=== PATIENT | female | born 1960 | race Two or more races ===

== ENCOUNTER → 2020-08-19 09:56 | Outpatient (BNVA) | payer OTHER, SELFPAY | PROVIDERS: PCP Physician Assistant Medical; Visit Provider Urology ==

== ENCOUNTER 2021-08-17 15:50 | Outpatient (REF) | payer OTHER, SELFPAY ==
--- NOTE | ~2021-08-17 | US_ITS ---
EXAMINATION: US RETROPERITONEAL LIMITED (RENAL ONLY) CLINICAL INFORMATION: Calculus of kidney. COMPARISON: Renal ultrasound 07/16/2020 and 05/24/2019. TECHNIQUE: Real-time imaging of the kidneys. FINDINGS: RIGHT KIDNEY: 9.3 x 4.2 x 5.8 cm (SAG x AP x TRV). The kidney is normal in size, contour, and echogenicity. Renal cortical thickness is normal. No calculi or focal parenchymal lesions. There is mild pelvic fullness. There are some echogenic foci seen likely related to vessel interface. LEFT KIDNEY: 10.9 x 5.2 x 6.8 cm (SAG x AP x TRV). The kidney is normal in size, contour, and echogenicity. Renal cortical thickness is normal. There is multiple collecting system fullness without geo hydronephrosis. Within the midpole, there is a 9 x 3 x 5 mm nonobstructing calculus. Within the midpole, there is a 9 x 10 x 12 mm cyst with calcification about its rim. This is similar to previous findings. US/US renal BI IMPRESSION: Stable appearance of the kidneys with mild upper collecting system fullness and not definitely hydronephrosis. Left renal mildly complex midpole cyst with calcification. Nonobstructing left renal 9 mm calculus..
== END 2021-08-17 15:51 | disposition home or self-care (01) ==
LOC: HO.XRAY 15:50
PROVIDERS: PCP Physician Assistant Medical; Visit Provider Urology
DX: N20.0 Calculus of kidney (principal); N28.1 Cyst of kidney, acquired
CPT/HCPCS: 76775

== ENCOUNTER → 2021-08-20 08:37 | Outpatient (BNVA) | payer OTHER, SELFPAY | PROVIDERS: PCP Physician Assistant Medical; Visit Provider Urology ==

== ENCOUNTER → 2021-11-04 11:14 | Outpatient (BNVA) | payer OTHER, SELFPAY | PROVIDERS: PCP Physician Assistant Medical; Visit Provider Urology | DX: Z13.89 Encounter for screening for other disorder (principal) ==

== ENCOUNTER 2022-02-22 15:24 | Outpatient (REF) | payer OTHER, SELFPAY ==
--- NOTE | ~2022-02-22 | US_ITS ---
EXAMINATION: US RETROPERITONEAL LIMITED (RENAL ONLY) CLINICAL INFORMATION: Calculus of kidney. COMPARISON: Bilateral renal ultrasound dated 08/17/2021. Renals only ultrasound dated 03/19/2017. TECHNIQUE: Real-time imaging of the kidneys. FINDINGS: RIGHT KIDNEY: 9.2 x 4.9 x 5.0 cm (SAG x AP x TRV). The kidney is normal in size, contour, and echogenicity. Renal cortical thickness is normal. No calculi or focal parenchymal lesions. No hydronephrosis. There is mild pelvic fullness. LEFT KIDNEY: 10.1 x 5.3 x 5.1 cm (SAG x AP x TRV). The kidney is normal in size, contour, and echogenicity. Renal cortical thickness is normal. No focal parenchymal lesions or hydronephrosis. There is an echogenic stone in the lower pole measuring 5 x 4 mm. There is an echogenic calcification in the midpole cortex. No caliectasis is seen. US/US renal BI IMPRESSION: Mild right renal pelvic fullness. No echogenic right renal calculi are seen. Nonobstructive echogenic stone in the lower pole and an echogenic calcification in the midpole of the left kidney. No caliectasis or hydronephrosis.
== END 2022-02-22 15:25 | disposition home or self-care (01) ==
LOC: HO.US 15:24
PROVIDERS: Visit Provider Urology
DX: N20.0 Calculus of kidney (principal)
CPT/HCPCS: 76775

== ENCOUNTER 2022-03-02 13:59 | Outpatient (AMB) | payer OTHER, SELFPAY ==
--- NOTE | 2022-03-02 11:41 | MHC.OFFVIS ---
Intake Intake Visit Reasons: 3 Month Ultrasound(SET) Intake Note: Patient is present for ultrasound follow up Digital X Ray Service Engineer Required: No Accompanied by: Self / Same As Patient Allergies aspirin [ASPIRIN] Allergy (Unknown, Verified 09/13/23 11:10) STOMACH ISSUES ibuprofen [From MOTRIN] Allergy (Unknown, Verified 09/13/23 11:10) STOMACH ISSUES prochlorperazine [From COMPAZINE] Allergy (Unknown, Verified 09/13/23 11:10) NERVOUS Sulfa (Sulfonamide Antibiotics) Allergy (Unknown, Verified 09/13/23 11:10) unknown Compazine Allergy (Unknown, Uncoded 09/13/23 11:10) unknown Motrin Allergy (Unknown, Uncoded 09/13/23 11:10) unknown HPI HPI Comments History of Present Illness Details Bhumi Narayan is a very pleasant female. They are a patient of [facility]. She is seen for the following conditions - nephrolithiasis - recurring UTI - renal cyst Nephrolithiasis/Urolithiasis: They are here for further evaluation of nephrolithiasis. They present for evaluation of back pain bilateral lower flank pain none abdominal pain none Urolithiasis was diagnosed a number of years ago 2004. The patient previously had kidney stones whose composition w unknown. Laboratory investigations include Base line serum evaluation, January 2016 - Normocalcemia (9.0), Normal PTH, Normal uric acid. 24 Hour urine evaluation January 2016 - , Low Urine volume < 2.0 liters, Low calcium < 200, Low Oxalate < 30 - pH 6.30 Apr 2016 - , Low Urine volume < 2.0 liters - but otherwise ok. Prior treatment(s) include left, ureteroscopy - a number of years ago. Prior imaging includes 11/14 , a renal ultrasound, showing no evidence of stones 12/15 , a renal ultrasound, showing no evidence of stones 05/17 , a renal ultrasound ? 4mm Right 05/18 , a renal ultrasound - multiple bilateral cysts, no evidence of stone. - 07/19 renal ultrasound, bilateral multiple cysts up to 1.4 cm. Question of 5 mm stone on the left - 08/21 renal ultrasound 12 mm left cyst, 8 mm left stone - 01/19 renal ultrasound left 5 mm Current therapeutic plan will be General advice to maintain good fluid intake for urine greater than 1.5 L per day, reduce salt and reduce protein and acid loads was provided [facility] Medical History (Updated 09/13/23 @ 18:51 by Elliott Lozano MD) Abnormal chest x-ray Chronic allergic rhinitis Allergies Asthma Sleep apnea Neuropathy Headache, migraine HTN (hypertension) Acute cystitis without hematuria Mixed incontinence Flank pain Surgical History History of surgery Social History Patient Tobacco Use Status: Former Tobacco user Tobacco use type: Cigarette Years Smoked: 40 Years Review of Systems Const Denies chills and Denies fever(s) Card Reports no additional complaints and Denies syncope Resp Denies cough GI Denies abdominal pain and Denies heartburn Reports as per HPI and Denies change in libido Neuro Denies syncope Psych Denies change in libido Endo Denies change in libido Physical Exam Const General: cooperative, healthy appearing, comfortable and no acute distress Orientation/consciousness: patient oriented x3 HEENT Face and sinus: Yes normal facial exam Mouth: moist mucous membranes Neck Neck: Yes normal visual inspection, Yes full ROM and Yes trachea midline Chest Chest palpation & inspection: normal inspection of the chest Resp Effort & Inspection: normal respiratory effort, able to speak in complete sentences and no respiratory distress GI Inspection: Yes normal to inspection Back/Spine/Pelvis Cervical Spine: normal cervical lordosis Thoracic/Lumbar Spine: thoracic and lumbar spine normal to inspection Skin General skin exam: no rashes or lesions noted Neuro General: patient oriented x3, gait normal, tone normal and moves all extremities Extrem General: Yes normal to inspection and Yes capillary refill normal Assessment & Plan Assessment & Plan (1) Nephrolithiasis: Code(s): N20.0 - Calculus of kidney Plan Continue vitamin B6 Imaging follow-up 12 month Orders: Orders US renal BI 1 Year N20.0 - Calculus of kidney Medications: Refilled pyridoxine (vitamin B6) 100 mg PO DAILY 90 tabs 3RF 90 days N20.0 - Calculus of kidney Patient Instructions: Imaging studies, laboratory and physical exam results were discussed and reviewed in detail. No major barriers to patient understanding were identified. An opportunity to ask questions regarding the treatment plan was provided. All questions were answered. The patient expressed understanding and agreement with the above treatment plan. The patient is aware they should contact our office by phone for worsening of their current condition or the appearance of new urologic symptoms. Compliance is encouraged with any medications and followup testing that is ordered. It is a privilege to participate in the urologic care of your patient. If you have any questions or concerns regarding treatment for the above conditions, or other urologic issues, please do not hesitate to contact me. The office telephone contact is [phone]. This note is constructed using voice recognition software. While every effort has been made to ensure accuracy operations research engineer errors may have been included. Yours sincerely, Dr Gomez Houston MD, [facility] - Urology Providers of Expert, Compassionate Care for the Genitourinary System Telehealth Telehealth Location of provider rendering services: practice address Location of patient: address on file Patient Identification confirmed using: Name, : Yes Telehealth method: voice only Patient verbally consented to treatment: Yes Patient verbally consented to billing insurance company: Yes Patient informed of any privacy concerns related to visit: Yes Coding Level of Care Code Est Pt Level 4 (19609) Diagnoses Nephrolithiasis N20.0
== END 2022-03-02 14:52 | disposition home or self-care (01) ==
LOC: HO.HUSH 13:59
PROVIDERS: PCP Physician Assistant Medical; Visit Provider Urology
DX: N20.0 Calculus of kidney (principal)
CPT/HCPCS: 99499

== ENCOUNTER 2023-01-24 09:44 | Outpatient (REF) | payer OTHER, SELFPAY ==
[2023-01-24 10:34] LABS: MANUAL DIFF FLAG NO
[2023-01-24 10:51] LABS: Basophils Absolute Auto 0.1 X10*3/uL (0.0-0.2); Basophils Percent Auto 1.1 % (0-2); Eosinophils Absolute Auto 0.4 X10*3/uL (0.0-0.4); Eosinophils Percent Auto 6.3 % (0-4); Hematocrit 42.7 % (37.0-47.0); Hemoglobin 14.3 g/dl (12.0-16.0); Imm Gran Abs Auto 0.01 X10*3/uL (0.00-0.03); Imm Gran Pct Auto 0.2 % (0.0-0.4); Lymphocytes Absolute Auto 2.1 X10*3/uL (1.2-4.9); Lymphocytes Percent Auto 31.1 % (20-40); Mean Corpuscular HGB Conc 33.5 g/dl (31.0-35.0); Mean Corpuscular Hemoglobin 29.9 pg (27.0-33.0); Mean Corpuscular Volume 89.1 fL (80.0-98.0); Mean Platelet Volume 10.1 fL (9.4-12.3); Monocytes Absolute Auto 0.6 X10*3/uL (0.1-1.2); Monocytes Percent Auto 9.2 % (2-11); Neutrophils Absolute Auto 3.5 x10*3/uL (2.0-8.3); Neutrophils Percent Auto 52.1 % (45-73); Platelet Count 254 X10*3/uL (160-400); Red Blood Count 4.79 X10*6/uL (4.20-5.50); Red Cell Distribution Width 12.8 % (11.0-16.0); White Blood Count 6.7 X10*3/uL (4.8-10.8)
[2023-01-24 11:29] LABS: Erythrocyte Sedimentation Rate 7 MM/HR (0-20)
[2023-01-27 03:28] LABS: Immunoglobulin E 37 kU/L (<OR=114)
== END 2023-01-24 09:45 | disposition home or self-care (01) ==
LOC: HO.LAB 09:44
PROVIDERS: PCP Physician Assistant Medical; Visit Provider Hospitalist
DX: J45.51 Severe persistent asthma with (acute) exacerbation (principal); T78.40XA Allergy, unspecified, initial encounter; Z79.899 Other long term (current) drug therapy
CPT/HCPCS: 36415; 82785; 85025; 85652; 86003; 90471; 90677; 99202

== ENCOUNTER 2023-01-30 14:23 | Outpatient (REF) | payer OTHER, SELFPAY | END 2023-01-30 14:24 | disposition home or self-care (01) | LOC: HO.RESP 14:23 | PROVIDERS: PCP Physician Assistant Medical; Visit Provider Hospitalist | DX: J45.909 Unspecified asthma, uncomplicated (principal) | CPT/HCPCS: 94060; 94727; 94729 ==

== ENCOUNTER 2023-02-20 12:47 | Outpatient (REF) | payer OTHER, SELFPAY ==
--- NOTE | ~2023-02-20 | US_ITS ---
EXAMINATION: US RETROPERITONEAL LIMITED (RENAL ONLY) CLINICAL INFORMATION: Calculus of kidney. COMPARISON: Ultrasound retroperitoneal limited (renal only) 02/22/2022 and 08/17/2021. TECHNIQUE: Real-time imaging of the kidneys. FINDINGS: RIGHT KIDNEY: 10.0 x 4.7 x 5.3 cm (SAG x AP x TRV). The kidney is normal in size, contour, and echogenicity. Renal cortical thickness is normal. No renal calculi or focal parenchymal lesions. Mild right hydronephrosis similar to prior. Echogenic focus without twinkle artifact or shadowing may reflect a vascular reflector. No definite nephrolithiasis. LEFT KIDNEY: 10.4 x 5.4 x 4.8 cm (SAG x AP x TRV). The kidney is normal in size, contour, and echogenicity. Renal cortical thickness is normal. No renal calculi or hydronephrosis. Likely benign renal cyst measuring 1.7 cm with mural calcification No follow up imaging is recommended. US/US renal BI IMPRESSION: 1. Mild right hydronephrosis similar to prior. Echogenic focus without twinkle artifact or shadowing may reflect a vascular reflector. No definite nephrolithiasis.
== END 2023-02-20 12:48 | disposition home or self-care (01) ==
LOC: HO.US 12:47
PROVIDERS: PCP Physician Assistant Medical; Visit Provider Urology
DX: N20.0 Calculus of kidney (principal)
CPT/HCPCS: 76775

== ENCOUNTER 2023-03-03 12:51 | Outpatient (AMB) | payer OTHER, SELFPAY ==
--- NOTE | 2023-03-03 13:18 | MHC.OFFVIS ---
Intake Intake Visit Reasons: 1Y US(02/20) Intake Note: Patient is present for Follow Up ultrasound Urology Med:Vitamin b6, Antibiotic Allergy: Sulfa Antibiotics Blood Thinner: None Pharmacy: [facility] Patient has been having bad kidney pain for the past 3 weeks Allergies aspirin [ASPIRIN] Allergy (Unknown, Verified 03/03/23 13:22) STOMACH ISSUES ibuprofen [From MOTRIN] Allergy (Unknown, Verified 03/03/23 13:22) STOMACH ISSUES prochlorperazine [From COMPAZINE] Allergy (Unknown, Verified 03/03/23 13:22) NERVOUS Sulfa (Sulfonamide Antibiotics) Allergy (Unknown, Verified 03/03/23 13:22) unknown Compazine Allergy (Unknown, Uncoded 03/03/23 13:22) unknown Motrin Allergy (Unknown, Uncoded 03/03/23 13:22) unknown HPI HPI Comments History of Present Illness Details Bhumi Narayan is a very pleasant female. She is a patient of [facility]. She is seen for the following conditions - nephrolithiasis - recurring UTI - renal cyst Nephrolithiasis/Urolithiasis: Further evaluation of nephrolithiasis Urolithiasis was diagnosed a number of years ago 2004. The patient previously had kidney stones whose composition w unknown. Laboratory investigations include Base line serum evaluation, January 2016 - Normocalcemia (9.0), Normal PTH, Normal uric acid. 24 Hour urine evaluation January 2016 - , Low Urine volume < 2.0 liters, Low calcium < 200, Low Oxalate < 30 - pH 6.30 Apr 2016 - , Low Urine volume < 2.0 liters - but otherwise ok. Prior treatment(s) include left, ureteroscopy - a number of years ago. Prior imaging includes 11/14 , a renal ultrasound, showing no evidence of stones 12/15 , a renal ultrasound, showing no evidence of stones 05/17 , a renal ultrasound ? 4mm Right 05/18 , a renal ultrasound - multiple bilateral cysts, no evidence of stone. - 07/19 renal ultrasound, bilateral multiple cysts up to 1.4 cm. Question of 5 mm stone on the left - 08/21 renal ultrasound 12 mm left cyst, 8 mm left stone - 01/19 renal ultrasound left 5 mm - 02/19 renal ultrasound no definitive stones Current therapeutic plan will be General advice to maintain good fluid intake for urine greater than 1.5 L per day, reduce salt and reduce protein and acid loads was provided [facility] Medical History Acute cystitis without hematuria Allergies Asthma Chronic allergic rhinitis Flank pain Headache, migraine HTN (hypertension) Mixed incontinence Neuropathy Sleep apnea Surgical History History of surgery Social History Patient Tobacco Use Status: Former Tobacco user Tobacco use type: Cigarette Years Smoked: 40 Years Review of Systems Const Denies chills and Denies fever(s) Card Reports no additional complaints and Denies syncope Resp Denies cough GI Denies abdominal pain and Denies heartburn Reports as per HPI and Denies change in libido Neuro Denies syncope Psych Denies change in libido Endo Denies change in libido Physical Exam Const General: cooperative, healthy appearing, comfortable and no acute distress Orientation/consciousness: patient oriented x3 HEENT Face and sinus: Yes normal facial exam Mouth: moist mucous membranes Neck Neck: Yes normal visual inspection, Yes full ROM and Yes trachea midline Chest Chest palpation & inspection: normal inspection of the chest Resp Effort & Inspection: normal respiratory effort, able to speak in complete sentences and no respiratory distress GI Inspection: Yes normal to inspection Back/Spine/Pelvis Cervical Spine: normal cervical lordosis Thoracic/Lumbar Spine: thoracic and lumbar spine normal to inspection Skin General skin exam: no rashes or lesions noted Neuro General: patient oriented x3, gait normal, tone normal and moves all extremities Extrem General: Yes normal to inspection and Yes capillary refill normal Results AMB Urinalysis, Automated UA Leukoctes 0 Agustín/uL Last Edit by GARTH Garcia on 03/03/23 13:30 UA Nitrite Negative Last Edit by GARTH Garcia on 03/03/23 13:30 UA Urobilinogen 0.2 mg/dL Last Edit by GARTH Garcia on 03/03/23 13:30 UA Protein 15 mg/dL Last Edit by GARTH Garcia on 03/03/23 13:30 UA pH 6.0 Last Edit by GARTH Garcia on 03/03/23 13:30 UA Blood 0 Cipriano/uL Last Edit by GARTH Garcia on 03/03/23 13:30 UA Specific Chase 1.030 Last Edit by CRISTINA GarciaA on 03/03/23 13:30 UA Ketone Negative Last Edit by GARTH Garcia on 03/03/23 13:30 UA Bilirubin 1 mg/dL Last Edit by Janet Herrera RMA on 03/03/23 13:30 UA Glucose 0 mg/dL Last Edit by GARTH Garcia on 03/03/23 13:30 Results Reviewed Results Reviewed: Laboratory Last Values Urine pH (Auto) 6.0 03/03/23 13:23 Specific Chase (Auto) 1.030 03/03/23 13:23 Urine Protein (Auto) 15 mg/dL 03/03/23 13:23 Glucose (UA)(Auto) 0 mg/dL 03/03/23 13:23 Urine Ketones (Auto) Negative 03/03/23 13:23 Urine Blood (Auto) 0 Cipriano/uL 03/03/23 13:23 Urine Nitrite (Auto) Negative 03/03/23 13:23 Urine Bilirubin (Auto) 1 mg/dL 03/03/23 13:23 Urine Urobilinogen (Auto) 0.2 mg/dL 03/03/23 13:23 Leukocyte Esterase (Auto) 0 Agustín/uL 03/03/23 13:23 Assessment & Plan Assessment & Plan (1) Nephrolithiasis: Code(s): N20.0 - Calculus of kidney (2) Renal cysts, acquired, bilateral: Code(s): N28.1 - Cyst of kidney, acquired Plan Continue yearly review Orders: Orders US renal BI 364 Days N20.0 - Calculus of kidney AMB Urinalysis Automated 03/03/23 Z13.9 - Encounter for screening, unspecified Patient Instructions: Imaging studies, laboratory and physical exam results were discussed and reviewed in detail. No major barriers to patient understanding were identified. An opportunity to ask questions regarding the treatment plan was provided. All questions were answered. The patient expressed understanding and agreement with the above treatment plan. The patient is aware they should contact our office by phone for worsening of their current condition or the appearance of new urologic symptoms. Compliance is encouraged with any medications and followup testing that is ordered. It is a privilege to participate in the urologic care of your patient. If you have any questions or concerns regarding treatment for the above conditions, or other urologic issues, please do not hesitate to contact me. The office telephone contact is [phone]. This note is constructed using voice recognition software. While every effort has been made to ensure accuracy division supervisor errors may have been included. Yours sincerely, Dr Gomez Houston MD, [facility] - Urology Providers of Expert, Compassionate Care for the Genitourinary System Coding Level of Care Code Est Pt Level 4 (59169) Diagnoses Nephrolithiasis N20.0 Renal cysts, acquired, bilateral N28.1
== END 2023-03-03 14:36 | disposition home or self-care (01) ==
PROVIDERS: Visit Provider Urology
DX: N20.0 Calculus of kidney (principal); N28.1 Cyst of kidney, acquired
CPT/HCPCS: 99214

== ENCOUNTER → 2023-03-03 12:51 | Outpatient (BNVA) | payer OTHER, SELFPAY | PROVIDERS: Visit Provider Urology | DX: N20.0 Calculus of kidney (principal); N28.1 Cyst of kidney, acquired | CPT/HCPCS: 99212 ==

== ENCOUNTER 2023-09-13 10:55 | Outpatient (AMB) | payer MEDICARE, MEDICAID, SELFPAY ==
--- NOTE | 2023-09-13 11:08 | MHC.OFFVIS ---
Intake Vital Signs 09/13/23 11:09 Height 5 ft 3 in Weight 192 lb 14.472 oz BMI 34.2 Pulse 72 Pulse Source Pulse Oximeter Pulse Oximetry (%) 98 Oxygen Delivery Method Room Air Intake Visit Reasons: asthma Allergies aspirin [ASPIRIN] Allergy (Unknown, Verified 09/13/23 11:10) STOMACH ISSUES ibuprofen [From MOTRIN] Allergy (Unknown, Verified 09/13/23 11:10) STOMACH ISSUES prochlorperazine [From COMPAZINE] Allergy (Unknown, Verified 09/13/23 11:10) NERVOUS Sulfa (Sulfonamide Antibiotics) Allergy (Unknown, Verified 09/13/23 11:10) unknown Compazine Allergy (Unknown, Uncoded 09/13/23 11:10) unknown Motrin Allergy (Unknown, Uncoded 09/13/23 11:10) unknown HPI HPI Comments History of Present Illness Details The patient is a 62 year woman with lifelong asthma. She states that she has significant allergies and asthma most of her life. She was initially being taking care by an signal timer in [place]. She initially started getting allergy shots but then she stopped. She was maintained on her inhalers which appeared to have been stable. Once her signal timer retired she was not getting her medications regularly. It now in the springtime and now summer her asthma became more significant. Back in October in November she had hard time with her breathing significant shortness of breath and cough. She did have x-rays done. I personally reviewed them demonstrating some evidence of bronchitis primarily in the right side. The patient had been on prednisone. Currently she is off all prednisone. On examination she does have significant expiratory wheezing. The patient will start all her medications. However, she is not better she is going to restart prednisone. Will plan to do allergy testing to see if she is a candidate for biologics. 09/13/2023 the patient is here for a pulmonary follow-up visit. The patient has been doing fair. She continues complaint of chest tightness and wheezing. She has been on frequent prednisone tapers. Although, on further questioning she misplaced her Trelegy has not been using a maintenance inhaler. She only uses the rescue inhaler. Although she does use her allergy medications. The patient did have a chest x-ray that was found to be abnormal she does need to have a repeat x-ray at this time. In addition to that the patient had some degree of eosinophilia and does benefit from biologic therapy but at this point she needs to demonstrate better adherence to therapy. She does state that her symptoms have worse in her home. Her allergy testing did demonstrate that she has allergies to dogs. She does have a dog in her home. She also has other allergies to grasses and trees. The patient right now will go ahead and restart her Trelegy continue her allergy medicine and if she has no better she will call the office and we can consider biologic therapies. [facility] Medical History (Updated 09/13/23 @ 18:51 by Elliott Lozano MD) Abnormal chest x-ray Chronic allergic rhinitis Allergies Asthma Sleep apnea Neuropathy Headache, migraine HTN (hypertension) Acute cystitis without hematuria Mixed incontinence Flank pain Surgical History History of surgery Social History Patient Tobacco Use Status: Former Tobacco user Tobacco use type: Cigarette Years Smoked: 40 Years Review of Systems Const Denies fever(s) Eyes Denies change in vision ENT Reports nasal congestion and Reports nasal discharge Card Denies chest pain and Reports dyspnea on exertion Resp Reports chest congestion, Reports cough, Reports dyspnea on exertion and Reports wheezing GI Reports no additional complaints Musc Reports no additional complaints Skin/Breast Denies rash Neuro Reports no additional complaints Greg/Lymph Denies easy bleeding and Denies lymphadenopathy Aller/Immun Reports wheezing Physical Exam Vital Signs: Last Vital Signs Pulse 72 09/13/23 11:09 Pulse Ox 98 09/13/23 11:09 Oxygen Delivery Method Room Air 09/13/23 11:09 BMI result Body Mass Index 34.2 Const General: comfortable HEENT Head: Yes normal to inspection Neck Neck: Yes supple Chest Chest palpation & inspection: normal inspection of the chest Resp Effort & Inspection: normal respiratory effort Auscultation: wheezes and diminished lung sounds Cardio Rate: regular rate Rhythm: regular rhythm Heart sounds: S1 normal heart sound present and S2 normal heart sound present Skin General skin exam: no rashes or lesions noted Extrem General: Yes no clubbing, cyanosis or edema Assessment & Plan Assessment & Plan (1) Asthma: Code(s): J45.909 - Unspecified asthma, uncomplicated Qualifiers: Asthma complication type: with acute exacerbation Asthma persistence: persistent Asthma severity: severe Qualified Code(s): J45.51 - Severe persistent asthma with (acute) exacerbation (2) Chronic allergic rhinitis: Code(s): J30.9 - Allergic rhinitis, unspecified (3) Allergies: Code(s): T78.40XA - Allergy, unspecified, initial encounter Qualifiers: Encounter type: subsequent encounter Qualified Code(s): T78.40XD - Allergy, unspecified, subsequent encounter (4) Abnormal chest x-ray: Code(s): R93.89 - Abnormal findings on diagnostic imaging of other specified body structures Plan restart Trelegy Singulair DIANA as needed start Prednisone taper if no better continue nebs 2-3 times a day Consider Biologic therapy repeat CXR F/U 4-6 months Orders: Orders XR chest 2V Today R93.89 - Abnormal findings on diagnostic imaging of other specified body structures Medications: New montelukast 10 mg PO DAILY 30 tabs 11RF albuterol sulfate 2.5 mg (3 mL) inhalation Q6H 30 days PRN 180 mL 11RF shortness of breath or wheezing Refilled [id number] 200-62.5-25 mcg (Trelegy Ellipta) 1 inh inhalation DAILY 30 days 60 ea 12RF albuterol sulfate 90 mcg/actuation (Ventolin HFA) 2 puffs inhalation QID 30 days PRN 18 grams 11RF shortness of breath or wheezing Coding Level of Care Code Est Pt Level 4 (13114) Diagnoses Severe persistent asthma with acute exacerbation J45.51 Asthma complication type: with acute exacerbation Asthma persistence: persistent Asthma severity: severe Chronic allergic rhinitis J30.9 Allergy, subsequent encounter T78.40XD Encounter type: subsequent encounter Abnormal chest x-ray R93.89 Time Spent (min) 16
[2023-09-13 11:09] VITALS: PULSE 72; O2SAT 98; BMI 34.2
== END 2023-09-13 11:36 | disposition home or self-care (01) ==
PROVIDERS: PCP Physician Assistant Medical; Visit Provider Hospitalist
DX: J45.51 Severe persistent asthma with (acute) exacerbation (principal); J30.9 Allergic rhinitis, unspecified; T78.40XD Allergy, unspecified, subsequent encounter; R93.89 Abnormal findings on diagnostic imaging of other specified body structures
CPT/HCPCS: 99214

== ENCOUNTER → 2023-09-13 10:55 | Outpatient (BNVA) | payer MEDICARE, MEDICAID, SELFPAY | PROVIDERS: PCP Physician Assistant Medical; Visit Provider Hospitalist | DX: J45.51 Severe persistent asthma with (acute) exacerbation (principal); J30.9 Allergic rhinitis, unspecified; R93.89 Abnormal findings on diagnostic imaging of other specified body structures; T78.40XD Allergy, unspecified, subsequent encounter | CPT/HCPCS: 99212 ==

== ENCOUNTER 2023-09-26 16:08 | Outpatient (REF) | payer MEDICARE, MEDICAID, SELFPAY ==
[2023-09-26 17:44] LABS: Appearance Urine Cloudy; Bacteria Urine None Seen (None Seen); Color Urine Yellow; Glucose Urine UA Negative (Negative); Hyaline Casts Urine 0-2 /LPF (0-2); Leukocyte Esterase Urine Negative (Negative); Nitrite Urine Negative (Negative); Specific Gravity - Urine 1.025 (1.005-1.025); Urine Blood Negative (Negative); Urine Ketones Negative (Negative); Urine Protein Negative (Neg-Trace); WBC Urine 0-5 /HPF (0-5)
[2023-09-26 17:45] LABS: RBC Urine 0-2 /HPF (0-2)
[2023-09-26 17:47] LABS: Calcium Oxalate Crystals Urine Present
== END 2023-09-26 16:09 | disposition home or self-care (01) ==
LOC: HO.LAB 16:08
PROVIDERS: Visit Provider Urology
DX: N39.0 Urinary tract infection, site not specified (principal)
CPT/HCPCS: 81001; 87086

== ENCOUNTER 2024-01-30 13:03 | Outpatient (REF) | payer MEDICARE, SELFPAY ==
[2024-01-30 13:34] LABS: Appearance Urine Clear; Color Urine Yellow; Glucose Urine UA Negative (Negative); Leukocyte Esterase Urine Negative (Negative); Nitrite Urine Negative (Negative); PH 5.5 (5.0-9.0); Specific Gravity - Urine 1.015 (1.005-1.025); Urine Blood Negative (Negative); Urine Ketones Negative (Negative); Urine Protein Negative (Neg-Trace)
[2024-01-30 13:37] LABS: Bacteria Urine None Seen (None Seen); Hyaline Casts Urine 0-2 /LPF (0-2); RBC Urine 0-2 /HPF (0-2); WBC Urine 0-5 /HPF (0-5)
== END 2024-01-30 13:04 | disposition home or self-care (01) ==
LOC: HO.LAB 13:03
PROVIDERS: Visit Provider Urology
DX: N39.0 Urinary tract infection, site not specified (principal); N20.0 Calculus of kidney
CPT/HCPCS: 81001; 87086

== ENCOUNTER 2024-03-15 09:28 | Outpatient (REF) | payer MEDICARE, SELFPAY ==
--- NOTE | ~2024-03-15 | US_ITS ---
EXAMINATION: US RETROPERITONEAL COMPLETE (RENAL) CLINICAL INFORMATION: Calculus of kidney. COMPARISON: Renal ultrasound 02/20/2023, 02/22/2022. TECHNIQUE: Real-time imaging of the kidneys and bladder. Limited visualization due to bowel gas. FINDINGS: RIGHT KIDNEY: 10.6 x 4.6 x 5.1 cm (SAG x AP x TRV). Mild pelvocaliectasis. No renal calculi. Renal cortical thickness is normal. Limited visualization. LEFT KIDNEY: 11.1 x 5.0 x 4.1 cm (SAG x AP x TRV). Mild pelvocaliectasis versus parapelvic cysts, largest 1.5 cm. 2.0 cm [id number] pole cyst with mural echogenic foci characteristic of calcification, previously 1.2 cm on 08/17/2021 and 1.7 cm on 02/20/2023. Likely benign renal cyst. No specific indication for additional imaging at this time. No renal calculi. Renal cortical thickness is normal. Limited visualization. US/US renal BI IMPRESSION: 1. Mild pelvocaliectasis right kidney. 2. Mild pelvocaliectasis versus parapelvic cysts left kidney. 3. No renal calculi. Electronically signed by: Ambika Irizarry MD 04/02/2024 07:09 PM EDT
== END 2024-03-15 09:29 | disposition home or self-care (01) ==
LOC: HO.US 09:28
PROVIDERS: PCP Physician Assistant Medical; Visit Provider Urology
DX: N20.0 Calculus of kidney (principal)
CPT/HCPCS: 76775

== ENCOUNTER 2024-03-18 10:10 | Outpatient (AMB) | payer MEDICARE, MEDICAID, SELFPAY ==
--- NOTE | 2024-03-18 10:24 | MHC.OFFVIS ---
Vital Signs 03/18/24 10:25 Height 5 ft 3 in Weight 170 lb BMI 30.1 Pulse 83 Pulse Source Pulse Oximeter Pulse Oximetry (%) 95 Oxygen Delivery Method Room Air Intake Visit Reasons: asthma Wire Steward Required: No Allergies aspirin [ASPIRIN] Allergy (Unknown, Verified 03/18/24 10:26) STOMACH ISSUES ibuprofen [From MOTRIN] Allergy (Unknown, Verified 03/18/24 10:26) STOMACH ISSUES prochlorperazine [From COMPAZINE] Allergy (Unknown, Verified 03/18/24 10:) NERVOUS Sulfa (Sulfonamide Antibiotics) Allergy (Unknown, Verified 03/18/24 10:26) unknown Compazine Allergy (Unknown, Uncoded 03/18/24 10:) unknown Motrin Allergy (Unknown, Uncoded 03/18/24 10:) unknown HPI Comments Details: The patient is a 63 year woman with lifelong asthma. She states that she has significant allergies and asthma most of her life. 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 She initially started getting allergy shots but then she stopped. She was maintained on her inhalers which appeared to have been stable. Once her crane helper retired she was not getting her medications regularly. It now in the springtime and now summer her asthma became more significant. Back in October in November she had hard time with her breathing significant shortness of breath and cough. She did have x-rays done. I personally reviewed them demonstrating some evidence of bronchitis primarily in the right side. The patient had been on prednisone. Currently she is off all prednisone. On examination she does have significant expiratory wheezing. The patient will start all her medications. However, she is not better she is going to restart prednisone. Will plan to do allergy testing to see if she is a candidate for biologics. 09/13/2023 the patient is here for a pulmonary follow-up visit. The patient has been doing fair. She continues complaint of chest tightness and wheezing. She has been on frequent prednisone tapers. Although, on further questioning she misplaced her Trelegy has not been using a maintenance inhaler. She only uses the rescue inhaler. Although she does use her allergy medications. The patient did have a chest x-ray that was found to be abnormal she does need to have a repeat x-ray at this time. In addition to that the patient had some degree of eosinophilia and does benefit from biologic therapy but at this point she needs to demonstrate better adherence to therapy. She does state that her symptoms have worse in her home. Her allergy testing did demonstrate that she has allergies to dogs. She does have a dog in her home. She also has other allergies to grasses and trees. The patient right now will go ahead and restart her Trelegy continue her allergy medicine and if she has no better she will call the office and we can consider biologic therapies. [facility] Medical History (Updated 09/13/23 @ 18:51 by Elliott Lozano MD) Abnormal chest x-ray Chronic allergic rhinitis Allergies Asthma Sleep apnea Neuropathy Headache, migraine HTN (hypertension) Acute cystitis without hematuria Mixed incontinence Flank pain Surgical History History of surgery Social History Patient Tobacco Use Status: Former Tobacco user Tobacco use type: Cigarette Years Smoked: 40 Years Review of Systems Const Denies fever(s) Eyes Denies change in vision ENT Reports nasal congestion and Reports nasal discharge Card Denies chest pain and Reports dyspnea on exertion Resp Reports chest congestion, Reports cough, Reports dyspnea on exertion and Reports wheezing GI Reports no additional complaints Musc Reports no additional complaints Skin/Breast Denies rash Neuro Reports no additional complaints Greg/Lymph Denies easy bleeding and Denies lymphadenopathy Aller/Immun Reports wheezing Physical Exam Vital Signs: Last Vital Signs Pulse 83 03/18/24 10:25 Pulse Ox 95 03/18/24 10:25 Oxygen Delivery Method Room Air 03/18/24 10:25 BMI result Body Mass Index 30.1 Const General: comfortable HEENT Head: Yes normal to inspection Neck Neck: Yes supple Chest Chest palpation & inspection: normal inspection of the chest Resp Effort & Inspection: normal respiratory effort Auscultation: wheezes and diminished lung sounds Cardio Rate: regular rate Rhythm: regular rhythm Heart sounds: S1 normal heart sound present and S2 normal heart sound present Skin General skin exam: no rashes or lesions noted Extrem General: Yes no clubbing, cyanosis or edema Assessment & Plan Assessment & Plan (1) Asthma: Code(s): J45.909 - Unspecified asthma, uncomplicated Category: Medical Qualifiers: Asthma complication type: with acute exacerbation Asthma persistence: persistent Asthma severity: severe Qualified Code(s): J45.51 - Severe persistent asthma with (acute) exacerbation (2) Chronic allergic rhinitis: Code(s): J30.9 - Allergic rhinitis, unspecified Category: Medical (3) Allergies: Code(s): T78.40XA - Allergy, unspecified, initial encounter Category: Medical Qualifiers: Encounter type: subsequent encounter Qualified Code(s): T78.40XD - Allergy, unspecified, subsequent encounter (4) Abnormal chest x-ray: Code(s): R93.89 - Abnormal findings on diagnostic imaging of other specified body structures Category: Medical Plan continue Trelegy Singulair DIANA as needed start Prednisone taper if no better continue nebs 2-3 times a day bloodwork Will be a good candidate for Biologic therapy F/U 3-4 months Orders: Orders Complete Blood Count Auto Diff Today J45.51 - Severe persistent asthma with (acute) exacerbation Immunoglobulins,IgG IgA IgM Today J45.51 - Severe persistent asthma with (acute) exacerbation Immunoglobulin E Today J45.51 - Severe persistent asthma with (acute) exacerbation Erythrocyte Sedimentation Rate Today J45.51 - Severe persistent asthma with (acute) exacerbation Medications: New prednisone PO daily; Take 6 tabs daily x 3 days, then 5 tabs x 3 days, then 4 tabs x 3 days, then 3 tabs x 3 days, then 2 tabs daily x 3 days, then 1 tab x 3 days to complete. 63 tabs 0RF 18 days doxycycline hyclate 100 mg PO BID 20 caps 0RF 10 days Refilled albuterol sulfate 2.5 mg (3 mL) inhalation Q6H PRN 180 mL 11RF shortness of breath or wheezing 30 days albuterol sulfate 90 mcg/actuation (Ventolin HFA) 2 puffs inhalation QID PRN 18 grams 11RF shortness of breath or wheezing 30 days Coding Level of Care Code Est Pt Level 4 (67171) Diagnoses Severe persistent asthma with acute exacerbation J45.51 Asthma complication type: with acute exacerbation Asthma persistence: persistent Asthma severity: severe Chronic allergic rhinitis J30.9 Allergy, subsequent encounter T78.40XD Encounter type: subsequent encounter Abnormal chest x-ray R93.89 Time Spent (min) 16
[2024-03-18 10:25] VITALS: PULSE 83; O2SAT 95; BMI 30.1
== END 2024-03-18 10:37 | disposition home or self-care (01) ==
PROVIDERS: PCP Physician Assistant Medical; Visit Provider Hospitalist
DX: J45.51 Severe persistent asthma with (acute) exacerbation (principal); J30.9 Allergic rhinitis, unspecified; T78.40XD Allergy, unspecified, subsequent encounter; R93.89 Abnormal findings on diagnostic imaging of other specified body structures
CPT/HCPCS: 99214

== ENCOUNTER 2024-03-18 10:10 | Outpatient (REF) | payer MEDICARE, SELFPAY ==
[2024-03-18 10:51] LABS: MANUAL DIFF FLAG NO
[2024-03-18 11:14] LABS: Basophils Absolute Auto 0.1 X10*3/uL (0.0-0.2); Eosinophils Absolute Auto 0.3 X10*3/uL (0.0-0.4); Eosinophils Percent Auto 5.8 % (0-4); Hematocrit 44.1 % (37.0-47.0); Hemoglobin 14.9 g/dl (12.0-16.0); Imm Gran Abs Auto 0.01 X10*3/uL (0.00-0.03); Imm Gran Pct Auto 0.2 % (0.0-0.4); Lymphocytes Percent Auto 40.7 % (20-40); Mean Corpuscular HGB Conc 33.8 g/dl (31.0-35.0); Mean Corpuscular Hemoglobin 30.8 pg (27.0-33.0); Mean Corpuscular Volume 91.1 fL (80.0-98.0); Mean Platelet Volume 9.4 fL (9.4-12.3); Monocytes Absolute Auto 0.6 X10*3/uL (0.1-1.2); Monocytes Percent Auto 11.3 % (2-11); Platelet Count 291 X10*3/uL (160-400); Red Blood Count 4.84 X10*6/uL (4.20-5.50); Red Cell Distribution Width 12.3 % (11.0-16.0); White Blood Count 4.9 X10*3/uL (4.8-10.8)
[2024-03-18 11:50] LABS: Erythrocyte Sedimentation Rate 8 MM/HR (0-20)
[2024-03-19 07:39] LABS: IgA 111 mg/dL (70-320); IgG 1035 mg/dL (600-1540); IgM 83 mg/dL (50-300)
[2024-03-19 19:08] LABS: Immunoglobulin E 72 kU/L (<OR=114)
== END 2024-03-18 10:11 | disposition home or self-care (01) ==
LOC: HO.LAB 10:10
PROVIDERS: PCP Physician Assistant Medical; Visit Provider Hospitalist
DX: R93.89 Abnormal findings on diagnostic imaging of other specified body structures (principal); J45.51 Severe persistent asthma with (acute) exacerbation; J30.9 Allergic rhinitis, unspecified; T78.40XD Allergy, unspecified, subsequent encounter
CPT/HCPCS: 36415; 82784; 82785; 85025; 85652; 99212

== ENCOUNTER 2024-04-05 15:12 | Outpatient (AMB) | payer MEDICARE, SELFPAY ==
--- NOTE | 2024-04-05 15:13 | MHC.OFFVIS ---
Intake Visit Reasons: 1Y Follow Up-Ultrasound(set) Intake Note: Patient is Present for Telephone Follow Up Ultrasound results Urology Med:Vitamin B6 Antibiotic Allergy: Sulfa Blood Thinner: None Patient states that she is in extreme pain and discomfort from flank area Allergies aspirin [ASPIRIN] Allergy (Unknown, Verified 04/05/24 15:15) STOMACH ISSUES ibuprofen [From MOTRIN] Allergy (Unknown, Verified 04/05/24 15:15) STOMACH ISSUES prochlorperazine [From COMPAZINE] Allergy (Unknown, Verified 04/05/24 15:15) NERVOUS Sulfa (Sulfonamide Antibiotics) Allergy (Unknown, Verified 04/05/24 15:15) unknown Compazine Allergy (Unknown, Uncoded 04/05/24 15:15) unknown Motrin Allergy (Unknown, Uncoded 04/05/24 15:15) unknown Medication List - Last Reconciled 04/05/24 by Gomez Houston MD albuterol sulfate 90 mcg/actuation (ProAir HFA) 0 mcg inhalation albuterol sulfate 2.5 mg (3 mL) inhalation Q6H PRN 30 days albuterol sulfate 90 mcg/actuation (Ventolin HFA) 2 puffs inhalation QID PRN 30 days budesonide-formoterol 160-4.5 mcg/actuation (Symbicort) 2 puffs inhalation BID bupropion HCl XL 150 mg PO BEDTIME cetirizine 10 mg PO DAILY 30 days conjugated estrogens (Premarin) 0.3 mg PO DAILY fluoxetine 20 mg PO DAILY fluticasone propionate 50 mcg/actuation sprays intranasal ameptltvnst-hzzohlmzo-qhqgizug 200-62.5-25 mcg (Trelegy Ellipta) 1 inh inhalation DAILY 30 days hydroxyzine HCl 25 mg PO BID PRN lumateperone (Caplyta) 42 mg PO DAILY montelukast 10 mg PO DAILY montelukast 10 mg PO DAILY 30 days prednisone PO daily; Take 6 tabs daily x 3 days, then 5 tabs x 3 days, then 4 tabs x 3 days, then 3 tabs x 3 days, then 2 tabs daily x 3 days, then 1 tab x 3 days to complete. 18 days pyridoxine (vitamin B6) 50 mg PO DAILY 90 days tiotropium bromide 1.25 mcg/actuation (Spiriva Respimat) 2 puffs inhalation DAILY tramadol 50 mg PO Q8H PRN verapamil ER 180 mg PO DAILY HPI Comments Details: Bhumi Narayan is a very pleasant female. She is a patient of [facility]. She is seen for the following conditions - nephrolithiasis - recurring UTI - renal cyst Telemedicine Evaluation 15 min Consultation DoxApcera Kyaw Video attempted Recent imaging no stones. Stable left cyst Nephrolithiasis/Urolithiasis: Further evaluation of nephrolithiasis Urolithiasis was diagnosed a number of years ago 2004. The patient previously had kidney stones whose composition w unknown. Laboratory investigations include Base line serum evaluation, January 2016 - Normocalcemia (9.0), Normal PTH, Normal uric acid. 24 Hour urine evaluation January 2016 - , Low Urine volume < 2.0 liters, Low calcium < 200, Low Oxalate < 30 - pH 6.30 Apr 2016 - , Low Urine volume < 2.0 liters - but otherwise ok. Prior treatment(s) include left, ureteroscopy - a number of years ago. Prior imaging includes 11/14 , a renal ultrasound, showing no evidence of stones 12/15 , a renal ultrasound, showing no evidence of stones 05/17 , a renal ultrasound ? 4mm Right 05/18 , a renal ultrasound - multiple bilateral cysts, no evidence of stone. - 07/19 renal ultrasound, bilateral multiple cysts up to 1.4 cm. Question of 5 mm stone on the left - 08/21 renal ultrasound 12 mm left cyst, 8 mm left stone - 01/19 renal ultrasound left 5 mm - 02/19 renal ultrasound no definitive stones - 02/20 renal ultrasound no stones Current therapeutic plan will be General advice to maintain good fluid intake for urine greater than 1.5 L per day, reduce salt and reduce protein and acid loads was provided [facility] Medical History Abnormal chest x-ray Chronic allergic rhinitis Allergies Asthma Sleep apnea Neuropathy Headache, migraine HTN (hypertension) Acute cystitis without hematuria Mixed incontinence Flank pain Surgical History History of surgery Social History Patient Tobacco Use Status: Former Tobacco user Tobacco use type: Cigarette Years Smoked: 40 Years Review of Systems Const All systems reviewed & are unremarkable except as noted in HPI and below Reports no additional complaints Resp Reports no additional complaints GI Reports no additional complaints Reports as per HPI Musc Reports no additional complaints Physical Exam Telemedicine evaluation Appropriate responses Regular breathing rate and rhythm HEENT Head: Yes normal to inspection Ears: hearing grossly normal bilaterally Eyes General: appearance normal, both eyes and all related structures Neck Neck: Yes normal visual inspection Chest Chest palpation & inspection: normal inspection of the chest Resp Effort & Inspection: normal respiratory effort and able to speak in complete sentences Telehealth Telehealth Telehealth Platform: [employer] Location of provider rendering services: practice address Location of patient: address on file Patient Identification confirmed using: Name, : Yes Telehealth method: video Patient verbally consented to treatment: Yes Patient verbally consented to billing insurance company: Yes Patient informed of any privacy concerns related to visit: Yes Minutes spent on Phone/Video with Pt.: 15 Assessment & Plan Assessment & Plan (1) Renal cysts, acquired, bilateral: Code(s): N28.1 - Cyst of kidney, acquired Category: Medical Plan Twelve month follow-up Orders: Orders US renal BI 12 Months N20.0 - Calculus of kidney Patient Instructions: Imaging studies, laboratory and physical exam results were discussed and reviewed in detail. No major barriers to patient understanding were identified. An opportunity to ask questions regarding the treatment plan was provided. All questions were answered. The patient expressed understanding and agreement with the above treatment plan. The patient is aware they should contact our office by phone for worsening of their current condition or the appearance of new urologic symptoms. Compliance is encouraged with any medications and followup testing that is ordered. It is a privilege to participate in the urologic care of your patient. If you have any questions or concerns regarding treatment for the above conditions, or other urologic issues, please do not hesitate to contact me. The office telephone contact is [phone]. This note is constructed using voice recognition software. While every effort has been made to ensure accuracy collet gluer errors may have been included. Yours sincerely, Dr Gomez Houston MD, [facility] - Urology Providers of Expert, Compassionate Care for the Genitourinary System Coding Level of Care Code Tele Est Pt Level 3 (33574) Diagnoses Renal cysts, acquired, bilateral N28.1
--- OUTSIDE RECORDS SUMMARY | 2024-04-05 15:14 | XMS_ITS | Continuity of Care Document ---
Author Organization [facility] Address [address] [place] [address]- Care Team Providers Care Remedial Reading Teacher Name Role Phone Mitch Lopez Primary Care Physician Encounter [facility] Date(s): 03/23/21 - 03/30/21 [facility] [address] [place] [address]- Encounter Diagnosis Hematuria(Discharge Diagnosis) - 03/23/21 Attending Physician: Bakari Rollins DO Referring Physician: Mitch Lopez Allergies, Adverse Reactions, Alerts Substance Reaction Severity Status sulfa drugs Active Compazine unknown Active Bactrim bruising Active Immunizations Given and Recorded Vaccine Date Status Refusal Reason Influenza Virus Vaccine (oldterm) 1 04/29/20 Recor ded Influenza Virus Vaccine (oldterm) 2 05/03/06 Given influenza virus vaccine, inactivated 3 04/05/18 Gi mikaela influenza virus vaccine, inactivated 4 05/26/16 Re corded influenza virus vaccine, inactivated 5 03/31/14 Re corded influenza virus vaccine, inactivated 6 04/10/12 Gi mikaela influenza virus vaccine, inactivated 7 05/18/11 Gi mikaela influenza virus vaccine, inactivated 8 07/08/10 Gi mikaela tetanus/diphtheria/pertussis, acel(Tdap) 04/23/14 Given hepatitis B adult vaccine 9 01/09/13 Given hepatitis B adult vaccine 10 12/11/12 Given hepatitis B adult vaccine 11 04/10/12 Given hepatitis B adult vaccine 12 02/02/12 Given influ virus vac, H1N1, inactive(oldterm) 13 10/15/09 Given FluLaval (oldterm) 14 05/15/09 Given diphtheria-tetanus toxoids (DT) 15 12/10/08 Given Influenza Inactive (IM) (oldterm) 16 06/18/08 Give n Influenza Vaccine (oldterm) 17 05/23/07 Given Pneumococcal Vacc (oldterm) 18 07/18/06 Given Not Given Vaccine Date Status Refusal Reason pneumococcal 23-valent vaccine 10/13/13 Not Given Patient Refuses 1Result Comment: Received at [facility] on [address] 2Admin Note: VIS given 3Admin Note: Administered at [facility] on [address] in [place]. 4Location History: [facility] 5Result Comment: [06/27/2014] PT HAD AT [facility] 6Admin Note: VIS GIVEN VIS DATE 01/30/2012 7Admin Note: flulaval vis given vis date 02/22/2011 8Admin Note: vis given 03/09/10 9Admin Note: 2nd in series of 3. 10Admin Note: 1st in series of 3. Vis given dated 09/11 11Admin Note: VIS GIVEN VIS DATE 09/01/11 #2 VACCINE 12Admin Note: VIS 09/11 Hep B #1 13Admin Note: VIS GIVEN VIS DATE05/01/09 14Admin Note: vis given 15Admin Note: VIS GIVEN 16Admin Note: vis given 17Admin Note: VIS GIVEN 18Admin Note: VIS GIVEN Medications Albuterol (Eqv-ProAir HFA) 90 mcg/inh inhalation aerosol See Instructions, INHALE 2 PUFFS EVERY 6 HOURS NEEDED FOR WHEEZING/SHORTNESS OF BREATH, # 8.5 Unknown, 5 Refills, [id number], 25, INHALE 2 PUFFS EVERY 6 HOURS NEEDED FOR WHEEZING/SHORTNESSOF BREATH, 160.02, cm, 03/30/21 15:41:00 EDT, Heigh... Start Date: 03/30/21 Status: Ordered cetirizine 10 mg oral tablet 1 tablet = 10 mg, By Mouth, Daily, # 30 tablet, 0 Refills, Maintenance, 12/04/20 17:24:00 EDT, Tablet, [facility]/pharmacy #[id number], Partial fill upon patient request if the prescription is for a schedule II opioid drug., 160.02, cm, 12/04/20 17:05:00 EDT, [place]... Start Date: 12/04/20 Status: Ordered Colace sodium 100 mg oral capsule 100 mg, 1, capsule, By Mouth, 2 times a day, PRN, # 20 capsule, Refills 0, Tot. Refills 0, Maintenance, for constipation, 02/07/21 10:55:00 EDT, Route to Pharmacy Electronically, [facility]/pharmacy #[id number], Partial fill upon patient request if the prescriptio... Start Date: 02/07/21 Status: Ordered [facility] MEL[facility] 3 MG TABLET [facility] MELATONIN 3 MG TABLET, 1, tablet, By Mouth, Daily at bedtime, # 30 tablet, 2 Refills, Maintenance, 02/17/21 19:34:00 EDT, 160.02, cm, 02/16/21 17:20:00 EDT, Height, 88.8, kg, 11/24/20 15:58:00 EDT, Dry Weight Start Date: 02/17/21 Status: Ordered [facility] MELATONIN 3 MG TABLET [facility] MELATONIN 3 MG TABLET, 1, tablet, By Mouth, Daily at bedtime, # 30 tablet, 1 Refills, Maintenance, FOR SLEEP., 09/09/20 8:42:00 EST, 160.02, cm, 07/29/20 16:36:00 EST, Height, 92.3, kg, 07/24/20 13:24:00 EST, Dry Weight Start Date: 09/09/20 Status: Ordered diclofenac 1% topical gel 1 application, Topically, 4 times a day, # 100 Gm, 0 Refills, Maintenance, 02/07/21 10:54:00 EDT, Gel, [facility]/pharmacy #1972, Partial fill upon patient request if the prescription is for a schedule II opioid drug., 160.02, cm, 02/04/21 15:57:00 EDT, [place]... Start Date: 02/07/21 Status: Ordered diclofenac 1% topical gel = 4 Gm, Topically, 4 times a day, PRN knee pain, Apply to painful knee, # 100 Gm, 0 Refills, Maintenance, 02/16/21 17:40:00 EDT, Gel, [facility]/pharmacy #1972, Partial fill upon patient request if the prescription is for a schedule II opioid drug., 160.02,... Start Date: 02/16/21 Stop Date: 03/18/21 Status: Ordered duloxetine 30 mg oral enteric coated capsule 1 capsule = 30 mg, By Mouth, Daily, # 30 capsule, 4 Refills, Maintenance, 02/04/21 16:26:00 EDT, ECCapsule, [facility], Partial fill upon patient request if the prescription is for a schedule II opioid drug., 160.02, cm, 02/04/21 15:57:00 EDT... Start Date: 02/04/21 Stop Date: 07/04/21 Status: Ordered Estrace Vaginal Cream 0.1 mg/g = 1 Gm, Vaginally, Every Monday and , # 42.5 Gm, 2 Refills, Maintenance, 09/08/20 14:57:00EST, [facility], 160.02, cm, 07/29/20 16:36:00 EST, Height, 92.3, kg, 07/24/20 13:24:00 EST, Dry Weight Start Date: 09/08/20 Status: Ordered Flonase 50 mcg/inh nasal spray 1 sprays, Nares, Both, 2 times a day, # 16 Gm, 0 Refills, Maintenance, 08/08/20 15:21:00 EST, [place], [facility], Partial fill upon patient request if the prescription is for a schedule II opioid drug., 1 sprays Nares, Both 2 times a day, 160.0... Start Date: 08/08/20 Status: Ordered gabapentin 300 mg oral capsule 900 mg, 3, capsule, By Mouth, 3 times a day, # 90 capsule, Refills 0, Maintenance, 09/09/19 11:53:00 EST Start Date: 09/09/19 Status: Ordered lidocaine 5% topical film 1 patch, Topically, Daily, PRN Pain , Mild, remove after 12 hours, # 30 patch, 0 Refills, Maintenance, 12/05/20 21:01:00 EDT, Film, [facility], Please adjust the concentration as needed for insurance coverage, 1 patch Topically Daily,x7 days,P... Start Date: 12/05/20 Stop Date: 12/12/20 Status: Ordered melatonin 3 mg oral tablet 1 tablet = 3 mg, By Mouth, Daily at bedtime, # 30 tablet, 2 Refills, Maintenance, 10/07/20 9:05:00 EST, [facility], Partial fill upon patient request if the prescription is for a schedule II opioid drug., 160.02, cm, 10/07/20 8:15:00 EST, [place]... Start Date: 10/07/20 Status: Ordered naproxen 500 mg oral tablet 1 tablet = 500 mg, By Mouth, 2 times a day, # 28 tablet, 0 Refills, Maintenance, 03/08/21 18:54:00 EDT, Tablet, [facility]/pharmacy #1972, Partial fill upon patient request if the prescription is for a schedule II opioid drug., 160.02, cm, 03/08/21 18:21:00... Start Date: 03/08/21 Stop Date: 03/22/21 Status: Ordered ProAir HFA 90 mcg/inh inhalation aerosol with adapter 2, puffs, Inhalation, Every 6 hours, PRN, # 1 each, Refills 5, Tot. Refills 5, Maintenance, 05/19/20 16:20:00 EDT, Route to Pharmacy Electronically, [id number], [facility]/pharmacy#1972, 160.02, cm, 04/28/20 13:40:00 EDT, Height, 9... Start Date: 05/19/20 Stop Date: 11/15/20 Status: Ordered ProAir HFA 90 mcg/inh inhalation aerosol with adapter 2, puffs, Inhalation, Every 6 hours, PRN, # 1 each, Refills 5, Tot. Refills 5, Maintenance, 06/16/20 18:28:00 EST, Route to Pharmacy Electronically, [id number], [facility]/pharmacy#1972, 160.02, cm, 05/27/20 13:10:00 EDT, Height, 9... Start Date: 06/16/20 Stop Date: 12/13/20 Status: Ordered Spiriva HandiHaler 18 mcg Inhalation Capsule 1 capsule = 18 mcg, Inhalation, Daily, 0 Refills, Maintenance, 02/27/19 8:10:12 EDT, Capsule Start Date: 02/27/19 Status: Ordered SUMAtriptan 50 mg oral tablet 1 tablet = 50 mg, By Mouth, Once, PRN Headache, may repeat dose once in 2 hours, # 18 tablet, 1 Refills, Soft Stop, 10/07/20 9:06:00 EST, [facility]/pharmacy #1972, Partial fill upon patient request if the prescription is for a schedule II opioid drug., 160.... Start Date: 10/07/20 Status: Ordered verapamil 180 mg oral capsule, extended release 1 capsule, By Mouth, Daily, # 30 capsule, 5 Refills, Maintenance, 02/04/21 9:28:00 EDT, [id number], 160.02, cm, 01/26/21 9:12:00 EDT, Height, 88.8, kg, 11/24/20 15:58:00 EDT, Dry Weight Start Date: 02/04/21 Status: Ordered Problem List Condition Effective Dates Status Health Status Inform ant Asthma(Confirmed) 07/05/05 Active Bipolar disorder(Confirmed) 1, 2, 3 Active Chronic back pain(Confirmed) 07/05/05 Active Gastric nodule(Confirmed) 4 Active H/O ovarian cancer(Confirmed) 5 Active Hiatal hernia(Confirmed) Active Hysterectomy(Confirmed) Active Irritable bowel syndrome(Confirmed) 6 Active Kidney stone(Confirmed) Active Chronic migraine(Confirmed) Active OCD(Confirmed) Active *Joseph Resendez, Care Coord inator, ICP [phone](Confirmed) Active 1Jantoinette Streeter [facility] [place] 2Case Chairman [facility] [place] [facility] ([facility]); Psychiatrist - Dr Konstantin Narvaez 3admitted at adult partial hospitalization program (adult intensive short term out-pt psychiatric program). 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 BRCA1/2 negative,seen by genetics 6follow up at [facility] - Dr Richey. Multiple endoscopies, all normal. Other diagnosis is Non-ulcer dyspepsia Diagnosis Diagnosis Type Effective Dates Health Status [facility] Service Informant Hematuria Discharge Diagnosis 03/23/21 Vital Signs Most recent to oldest [Reference Range]: 1 Height 160.02 cm (03/23/21 5:40 PM) Oxygen Saturation [94-100 %] 100 % (03/23/21 5:40 PM) Pulse Rate [55-90 bpm] 78 bpm (03/23/21 5:40 PM) Blood Pressure [90-138/55-84 mm Hg] 132/ 82mm Hg (03/23/21 5:40 PM) Respiratory Rate [16-30 br/min] 17 br/mi n (03/23/21 5:40 PM) Temperature [96.8-100.4 DegF] 97.8 DegF (03/23/21 5:40 PM) Mode of Delivery (Oxygen) Room air (03/23/21 5:40 PM) Blood pressure sites Arm, left (03/23/21 5:40 PM) Social History Social History Type Response Smoking Status Never smoker entered on: 02/07/14 Sex Female
--- OUTSIDE RECORDS SUMMARY | 2024-04-05 15:14 | XMS_ITS | Continuity of Care Document ---
Author Organization [facility] Address [address] [place] [address]- Care Team Providers Care Maxillofacial Prosthetics Dentist Name Role Phone Mitch Lopez Primary Care Physician [facility]): 01/18/22 - 02/17/22 [facility] [address] [place] [address]- Allergies, Adverse Reactions, Alerts Substance Reaction Severity Status sulfa drugs Active Compazine unknown Active Bactrim bruising Active Immunizations Given and Recorded Vaccine Date Status Refusal Reason SARS-CoV-2 (COVID-19) mRNA-1273 vaccine 08/11/21 R ecorded SARS-CoV-2 (COVID-19) mRNA-1273 vaccine 10/30/20 R ecorded SARS-CoV-2 (COVID-19) mRNA-1273 vaccine 10/02/20 R ecorded influenza virus vaccine, inactivated 05/10/21 Darren rded influenza virus vaccine, inactivated 04/02/20 Darren rded influenza virus vaccine, inactivated 04/17/19 Darren rded influenza virus vaccine, inactivated 04/07/18 Darren rded influenza virus vaccine, inactivated 1 04/05/18 Gi mikaela influenza virus vaccine, inactivated 03/28/17 Darren rded influenza virus vaccine, inactivated 2 05/26/16 Re corded influenza virus vaccine, inactivated 3 03/31/14 Re corded influenza virus vaccine, inactivated 4 04/10/12 Gi mikaela influenza virus vaccine, inactivated 5 05/18/11 Gi mikaela influenza virus vaccine, inactivated 6 07/08/10 Gi mikaela Influenza Virus Vaccine (oldterm) 7 04/29/20 Recor ded Influenza Virus Vaccine (oldterm) 8 05/03/06 Given tetanus/diphtheria/pertussis, acel(Tdap) 04/23/14 Given hepatitis B adult vaccine 9 01/09/13 Given hepatitis B adult vaccine 10 12/11/12 Given hepatitis B adult vaccine 11 04/10/12 Given hepatitis B adult vaccine 12 02/02/12 Given influ virus vac, H1N1, inactive(oldterm) 13 10/15/09 Given FluLaval (oldterm) 14 05/15/09 Given diphtheria-tetanus toxoids (DT) 15 12/10/08 Given tetanus-diphtheria toxoids (Td) 12/10/08 Recorded Influenza Inactive (IM) (oldterm) 16 06/18/08 Give n Influenza Vaccine (oldterm) 17 05/23/07 Given Pneumococcal Vacc (oldterm) 18 07/18/06 Given Not Given Vaccine Date Status Refusal Reason pneumococcal 23-valent vaccine 10/13/13 Not Given Patient Refuses 1Admin Note: Administered at [facility] on [facility] in [place]. 2Location History: [facility] pharmacy 3Result Comment: [06/27/2014] PT HAD AT [facility] 4Admin Note: VIS GIVEN VIS DATE 01/30/2012 5Admin Note: flulaval vis given vis date 02/22/2011 6Admin Note: vis given 03/09/10 7Result Comment: Received at [facility] on [facility] 8Admin Note: VIS given 9Admin Note: 2nd in series of 3. 10Admin Note: 1st in series of 3. Vis given dated 09/11 11Admin Note: VIS GIVEN VIS DATE 09/01/11 #2 VACCINE 12Admin Note: VIS 09/11 Hep B #1 13Admin Note: VIS GIVEN VIS DATE05/01/09 14Admin Note: vis given 15Admin Note: VIS GIVEN 16Admin Note: vis given 17Admin Note: VIS GIVEN 18Admin Note: VIS GIVEN Medications buPROPion 150 mg/24 hours (XL) oral tablet, extended release TAKE 1 TABLET BY MOUTH EVERY DAY Start Date: 05/05/21 Status: Ordered Coricidin HBP Chest Congestion & Cough 10 mg-200 mg oral capsule 1 capsule, By Mouth, Every 4 hours, PRN for cough, not to exceed 12 capsules/day, # 60 capsule, 0 Refills, Maintenance, 12/07/21 15:30:00 EDT, Capsule, [facility], Partial fill upon patient request if the prescription is for a schedule II opio... Start Date: 12/07/21 Status: Ordered Estrace Vaginal Cream 0.1 mg/g = 1 Gm, Vaginally, Every Monday and , # 42.5 Gm, 2 Refills, Maintenance, 09/08/20 14:57:00EST, [facility], 160.02, cm, 07/29/20 16:36:00 EST, Height, 92.3, kg, 07/24/20 13:24:00 EST, Dry Weight Start Date: 09/08/20 Status: Ordered FLUoxetine 40 mg oral capsule TAKE 1 CAPSULE BY MOUTH EVERY DAY Start Date: 05/05/21 Status: Ordered gabapentin 600 mg oral tablet 2 tablet, By Mouth, 2 times a day, # 120 tablet, 2 Refills, [id number], 160, cm, 11/22/21 10:23:00 EDT, Height, 88.2, kg, 11/11/21 9:53:00 EDT, Dry Weight Start Date: 11/30/21 Status: Ordered life line via cellular /wrist bracelet life line via cellular /wrist bracelet, See Instructions, # 1 each, Refills 0, Tot. Refills 0, Maintenance, impaired mobility z74.09 , risk for falls z91.81, 12/29/21 13:41:00 EDT, Supply Start Date: 12/29/21 Status: Ordered melatonin 3 mg oral tablet 1 tablet = 3 mg, By Mouth, Daily at bedtime, # 30 tablet, 3 Refills, Maintenance, 01/03/22 11:56:00EDT, [facility], Partial fill upon patient request if the prescription is for a schedule IIopioid drug., 160, cm, 01/03/22 11:03:00 EDT, Heigh... Start Date: 01/03/22 Status: Ordered meloxicam 15 mg oral tablet See Instructions, TAKE 1 TABLET BY MOUTH DAILY NEEDED FOR PAIN, # 30 tablet, 0 Refills, [id number], 160, cm, 01/20/22 15:38:00 EDT, Height, 88.2, kg, 11/11/21 9:53:00 EDT, Dry Weight Start Date: 02/07/22 Status: Ordered meloxicam 7.5 mg oral tablet 1 tablet, By Mouth, Daily, PRN NEEDED FOR PAIN WITH FOOD, # 30 tablet, 1 Refills, [id number], 160, cm, 01/20/22 15:38:00 EDT, Height, 88.2, kg, 11/11/21 9:53:00 EDT, Dry Weight Start Date: 02/01/22 Status: Ordered montelukast 10 mg oral tablet TAKE 1 TABLET BY MOUTH EVERY DAY IN THE EVENING Start Date: 05/05/21 Status: Ordered ProAir HFA 90 mcg/inh inhalation aerosol with adapter 2, puffs, Inhalation, Every 6 hours, PRN, # 1 each, Refills 11, Tot. Refills 11, Maintenance, 01/03/22 11:58:00 EDT, Route to Pharmacy Electronically, [id number], [facility]pharmacy #1972, 160, cm, 01/03/22 11:03:00 EDT, Height, 88... Start Date: 01/03/22 Stop Date: 12/29/22 Status: Ordered Spiriva Respimat 1.25 mcg/inh inhalation aerosol 2 puffs, Inhalation, Daily, # 1 each, 11 Refills, Maintenance, 01/03/22 11:57:00 EDT, [facility]/pharmacy #1972, Partial fill upon patient request if the prescription is for a schedule II opioid drug., 160,cm, 01/03/22 11:03:00 EDT, Height, 88.2, kg, ... Start Date: 01/03/22 Status: Ordered SUMAtriptan 50 mg oral tablet 1 tablet = 50 mg, By Mouth, Once, PRN Headache, may repeat dose once in 2 hours, # 18 tablet, 1 Refills, Soft Stop, 10/07/20 9:06:00 EST, [facility], Partial fill upon patient request if the prescription is for a schedule II opioid drug., 160.... Start Date: 10/07/20 Status: Ordered Symbicort 160mcg/4.5mcg Inhaler 2, puffs, Inhalation, 2 times a day, rinse mouth and throat after use, # 10.2 Gm, Refills 11, Tot. Refills 11, Maintenance, 01/03/22 11:56:00 EDT, Aerosol, Route to Pharmacy Electronically, [id number], [facility], 160... Start Date: 01/03/22 Status: Ordered terazosin 2 mg oral capsule 2 mg, 1, capsule, By Mouth, Daily at bedtime, continue taking till stone expulsion or till 4 weeks and then discontinue., # 30 capsule, Refills 0, Tot. Refills 0, Maintenance, 01/20/22 15:34:00 EDT, Route to Pharmacy Electronically, [facility]... Start Date: 01/20/22 Status: Ordered Tessalon Perles 100 mg oral capsule 1 capsule = 100 mg, By Mouth, 3 times a day, PRN Cough, # 20 capsule, 0 Refills, Maintenance, 09/16/21 15:25:00 EST, [facility], Partial fill upon patient request if the prescription is for aschedule II opioid drug., 160.02, cm, 09/16/21 14:3... Start Date: 09/16/21 Status: Ordered verapamil 180 mg oral capsule, extended release 1 capsule, By Mouth, Daily, # 30 capsule, 5 Refills, [facility], 160.02, cm, 07/05/21 10:30:00EST, Height, 85, kg, 03/11/21 17:07:00 EDT, Dry Weight Start Date: 08/23/21 Status: Ordered Vitamin B6 100 mg oral tablet 1 tablet = 100 mg, By Mouth, Daily, 0 Refills, Maintenance, 09/16/21 15:23:00 EST, Partial fill upon patient request if the prescription is for a schedule II opioid drug. Start Date: 09/16/21 Status: Ordered Problem List Condition Effective Dates Status Health Status Inform ant Asthma(Confirmed) 07/05/05 Active Bipolar disorder(Confirmed) 1, 2, 3 Active Chronic back pain(Confirmed) 07/05/05 Active Gastric nodule(Confirmed) 4 Active H/O ovarian cancer(Confirmed) 5 Active Hiatal hernia(Confirmed) Active Hysterectomy(Confirmed) Active Irritable bowel syndrome(Confirmed) 6 Active Kidney stone(Confirmed) Active Chronic migraine(Confirmed) Active Obese class I(Confirmed) Active OCD(Confirmed) Active *Joseph Resendez, Care Coord avril, ICP [phone](Confirmed) Active 1Jantoinette Streeter [facility] [place] 2Case Portable Grinding Machine Operator Parish Proctor ([facility]); Psychiatrist - Dr Konstantin Narvaez 3admitted at adult partial hospitalization program (adult intensive short term out-pt psychiatric program). 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 BRCA1/2 negative,seen by genetics 6follow up at [facility] GI - Dr Richey. Multiple endoscopies, all normal. Other diagnosis is Non-ulcer dyspepsia Social History Social History Type Response Smoking Status Never smoker entered on: 02/07/14 Sex Female
--- OUTSIDE RECORDS SUMMARY | 2024-04-05 15:14 | XMS_ITS | Continuity of Care Document ---
Author Organization [facility] Address [address] [place] [address]- Care Team Providers Care Warping Mill Operator Name Role Phone Mitch Lopez Primary Care Physician [facility] 12[facility]21 - 01/14/22 [facility] [address] [place] [address]- Allergies, Adverse Reactions, Alerts Substance Reaction Severity [...] Given Patient Refuses 1Admin Note: Administered at [facility] on [facility] in [place]. 2Location History: [facility] pharmacy 3Result Comment: [06/27/2014] PT HAD AT [facility] 4Admin Note: VIS GIVEN VIS DATE 01/30/2012 5Admin Note: flulaval vis given vis date 02/22/2011 6Admin Note: vis given 03/09/10 7Result Comment: Received at [facility] on [facility] 8Admin Note: VIS given 9Admin Note: 2nd [...] a day, # 120 tablet, 2 Refills, [id number], 160, cm, 11/22/21 10:23:00 EDT, Height, 88.2, [...] Heigh... Start Date: 01/03/22 Status: Ordered meloxicam 7.5 mg oral tablet 1 tablet, By Mouth, Daily, FOR ARTHRITIS PAIN. TAKE WITH FOOD, # 30 tablet, 1 Refills, 11/22/21 11:20:00 EDT, [facility], 160, cm, 11/22/21 10:23:00 EDT, Height, 88.2, kg, 11/11/21 9:53:00 EDT, Dry Weight Start Date: 11/22/21 Status: Ordered montelukast 10 mg oral tablet TAKE 1 TABLET BY MOUTH EVERY DAY IN THE EVENING Start Date: 05/05/21 Status: Ordered ProAir HFA 90 mcg/inh inhalation aerosol with adapter 2, puffs, Inhalation, Every 6 hours, PRN, # 1 each, Refills 11, Tot. Refills 11, Maintenance, 01/03/22 11:58:00 EDT, Route to Pharmacy Electronically, [id number], [facility]/pharmacy #1972, 160, cm, 01/03/22 11:03:00 EDT, Height, 88... Start Date: 01/03/22 Stop Date: 12/29/22 Status: Ordered Spiriva Respimat 1.25 mcg/inh inhalation aerosol 2 puffs, Inhalation, Daily, # 1 each, 11 Refills, Maintenance, 01/03/22 11:57:00 EDT, [facility], Partial fill upon patient request [...] 11:56:00 EDT, Aerosol, Route to Pharmacy Electronically, [id number], [facility]/pharmacy #1972, 160... Start Date: 01/03/22 Status: Ordered Tessalon Perles 100 mg oral capsule 1 capsule = 100 mg, By Mouth, 3 times a day, PRN Cough, # 20 capsule, 0 Refills, Maintenance, 09/16/21 15:25:00 EST, [facility]/pharmacy #1972, Partial fill upon patient request if the prescription is for aschedule II opioid drug., 160.02, cm, 09/16/21 14:3... Start Date: 09/16/21 Status: Ordered verapamil 180 mg oral capsule, extended release 1 capsule, By Mouth, Daily, # 30 capsule, 5 Refills, [facility], 160.02, cm, 07/05/21 10:30:00EST, Height, 85, kg, [...] stone(Confirmed) Active Chronic migraine(Confirmed) Active Obese class II(Confirmed) Active OCD(Confirmed) Active *Joseph Resendez, Care Coord inator, ICP [phone](Confirmed) Active 1Jantoinette Streeter [facility] [place] 2Case Manager Store Parish Proctor ([facility]); Psychiatrist - Dr Konstantin Narvaez 3admitted at adult partial hospitalization program (adult intensive short term out-pt psychiatric program). 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 BRCA1/2 negative,seen by genetics 6follow up at [facility] GI - Dr Desilets. Multiple endoscopies, all normal. Other diagnosis is Non-ulcer dyspepsia Social History Social History Type Response Smoking Status Never smoker entered on: 02/07/14 Sex Female
--- OUTSIDE RECORDS SUMMARY | 2024-04-05 15:14 | XMS_ITS | Continuity of Care Document ---
Author Organization [facility] Address [address] [place] [address]- Care Team Providers Care Sound Recordist Name Role Phone Mitch Lopez Primary Care Physician [phone] [facility] 11/27/20 - 12/27/20 [facility] [address] [place] [address]- Allergies, Adverse Reactions, Alerts Substance Reaction Severity [...] Given Patient Refuses 1Result Comment: Received at [facility] on [address] 2Admin Note: VIS given 3Admin Note: Administered at [facility] on [address] in [place]. 4Location History: [facility] pharmacy 5Result Comment: [06/27/2014] PT HAD AT [facility] 6Admin Note: VIS GIVEN VIS DATE 01/30/2012 [...] VIS GIVEN 18Admin Note: VIS GIVEN Medications 1 warm moist heating pad 1 warm moist heating pad, See Instructions, # 1 units, Refills 0, Tot. Refills 0, Maintenance, Use for sciatica, code M54.30, 09/07/17 13:54:37, Compound Start Date: 09/07/17 Status: Ordered Blood Pressure Monitor See Instructions, # 1 each, Maintenance, automatic blood pressure monitor DX HTn ICD 401., 07/20/1715:53:29, Compound Start Date: 07/20/17 Status: Ordered Breo Ellipta 200 mcg-25 mcg/inh inhalation powder 1 puffs, Inhalation, Daily, 0 Refills, Maintenance, 12/12/16 17:26:32, Powder Start Date: 12/12/16 Status: Ordered cetirizine 10 mg oral tablet 1 tablet = 10 mg, By Mouth, Daily, # 30 tablet, 0 Refills, Maintenance, 12/04/20 17:24:00 EDT, Tablet, [facility]/pharmacy #1972, Partial fill upon patient request if the prescription is for a schedule II opioid drug., 160.02, cm, 12/04/20 17:05:00 EDT, [place]... Start Date: 12/04/20 Status: Ordered Compression Stockings See Instructions, # 2 pair, Refills 0, Tot. Refills 0, Maintenance, surgical, calf length 20-30 mm Hg, DX edema, R 60.9, 10/16/18 16:21:49 EDT, Compound Start Date: 10/16/18 Status: Ordered [facility] MELATONIN 3 MG TABLET [facility] MELATONIN 3 MG TABLET, 1, tablet, By Mouth, Daily at bedtime, # 30 tablet, 1 Refills, Maintenance, FOR SLEEP., 09/09/20 8:42:00 EST, 160.02, cm, 07/29/20 16:36:00 EST, Height, 92.3, kg, 07/24/20 13:24:00 EST, Dry Weight Start Date: 09/09/20 Status: Ordered Estrace Vaginal Cream 0.1 mg/g = 1 Gm, Vaginally, Every Monday and , # 42.5 Gm, 2 Refills, Maintenance, 09/08/20 14:57:00EST, [facility]/pharmacy #1972, 160.02, cm, 07/29/20 16:36:00 EST, Height, 92.3, kg, 07/24/20 13:24:00 EST, Dry Weight Start Date: 09/08/20 Status: Ordered Flonase 50 mcg/inh nasal spray 1 sprays, Nares, Both, 2 times a day, # 16 Gm, 0 Refills, Maintenance, 08/08/20 15:21:00 EST, [place], [facility], Partial fill upon patient request if the prescription is for a schedule II opioid drug., 1 sprays Nares, Both 2 times a day, 160.0... Start Date: 08/08/20 Status: Ordered gabapentin 300 mg oral capsule 900 mg, 3, capsule, By Mouth, 3 times a day, # 90 capsule, Refills 0, Maintenance, 09/09/19 11:53:00 EST Start Date: 09/09/19 Status: Ordered gabapentin 600 mg oral tablet 2 tablet = 1,200 mg, By Mouth, 2 times a day, dose change to 1200mg bid 07/29/20., # 120 tablet, 2 Refills, Maintenance, 11/06/20 17:02:00 EDT, [facility]/pharmacy #1972, Partial fill upon patient request if the prescription is for a schedule II opioid drug.... Start Date: 11/06/20 Status: Ordered ibuprofen 600 mg oral tablet 600 mg, 1, tablet, By Mouth, 4 times a day, PRN, # 40 tablet, Refills 0, Tot. Refills 0, Maintenance, for pain, 07/15/20 20:01:00 EST, Route to Pharmacy Electronically, [facility], Partial fill upon patient request if the prescription is for a... Start Date: 07/15/20 Status: Ordered lidocaine 5% topical film 1 [...] EST, [place]... Start Date: 10/07/20 Status: Ordered POISE PADS POISE PADS, See Instructions, # 180 each, Refills 5, Tot. Refills 5, Maintenance, For stress incontinence (N93.3), Cystoscopy (Z98.890)., 02/27/19 14:16:26 EDT, Compound Start Date: 02/27/19 Status: Ordered ProAir HFA 90 mcg/inh inhalation aerosol with adapter 2, puffs, Inhalation, Every 6 hours, PRN, # 1 each, Refills 5, Tot. Refills 5, Maintenance, 05/19/20 16:20:00 EDT, Route to Pharmacy Electronically, [id number], [facility], 160.02, cm, 04/28/20 13:40:00 EDT, Height, 9... Start Date: 05/19/20 Stop Date: 11/15/20 Status: Ordered ProAir HFA 90 mcg/inh inhalation aerosol with adapter 2, puffs, Inhalation, Every 6 hours, PRN, # 1 each, Refills 5, Tot. Refills 5, Maintenance, 06/16/20 18:28:00 EST, Route to Pharmacy Electronically, [id number], [facility]/pharmacy#1972, 160.02, cm, 05/27/20 13:10:00 EDT, Height, 9... Start Date: 06/16/20 Stop Date: 12/13/20 Status: Ordered Rollator Walker Rollator Walker, See Instructions, # 1 each, Refills 0, Tot. Refills 0, Maintenance, dx: Cord compression, s/p laminectomy disectomy, back pain impaired mobility G55, M51.06, M51.27,M96.1,Z74.09, 08/12/19 8:40:00 EST, Compound Start Date: 08/12/19 Status: Ordered Spiriva HandiHaler 18 mcg Inhalation Capsule 1 capsule = 18 mcg, Inhalation, Daily, 0 Refills, Maintenance, 02/27/19 8:10:12 EDT, Capsule Start Date: 02/27/19 Status: Ordered SUMAtriptan 50 mg oral tablet 1 tablet = 50 mg, By Mouth, Once, PRN Headache, may repeat dose once in 2 hours, # 18 tablet, 1 Refills, Soft Stop, 10/07/20 9:06:00 EST, [facility]/pharmacy #1972, Partial fill upon patient request if the prescription is for a schedule II opioid drug., 160.... Start Date: 10/07/20 Status: Ordered verapamil 180 mg oral capsule, extended release 1 capsule = 180 mg, By Mouth, Daily, dose increase to 180mg qd 07/27/20, # 30 capsule, 5 Refills, Maintenance, 07/27/20 16:51:00 EST, [facility]/pharmacy #1972, Partial fill upon patient request if the prescription is for a schedule II opioid drug., 160.02,... Start Date: 07/27/20 Status: Ordered Problem List Condition Effective Dates Status Health Status Inform ant Asthma(Confirmed) 07/05/05 Active Bipolar disorder(Confirmed) 1, 2, 3 Active Chronic back pain(Confirmed) 07/05/05 Active Gastric nodule(Confirmed) 4 Active H/O ovarian cancer(Confirmed) 5 Active Hiatal hernia(Confirmed) Active Hysterectomy(Confirmed) Active Irritable bowel syndrome(Confirmed) 6 Active Kidney stone(Confirmed) Active Chronic migraine(Confirmed) Active OCD(Confirmed) Active *Joseph Resendez, Care Coord inadavid, ICP [phone](Confirmed) Active 1Jantoinette Streeter [facility] [place] [facility] [place] 2Case Backwinder [place] Proctor ([facility]); Psychiatrist - Dr Konstantin Narvaez 3admitted at adult partial hospitalization program (adult intensive short term out-pt psychiatric program). 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 BRCA1/2 negative,seen by genetics 6follow up at [facility] GI - Dr Richey. Multiple endoscopies, all normal. Other diagnosis is Non-ulcer dyspepsia Social History Social History Type Response Smoking Status Never smoker entered on: 02/07/14 Sex Female
--- OUTSIDE RECORDS SUMMARY | 2024-04-05 15:14 | XMS_ITS | Continuity of Care Document ---
Author Organization [facility] ter Address [address] [place] [id number]- Care Team Providers Care Equipment Operator Warehouse Name Role Phone Mitch Lopez Primary Care Physician [phone] [facility] - 12/10/22 [facility] [address] [place] [id number]- Discharge Disposition: A-D/C Home Attending Physician: Juan Carlos Dubose MD Admitting Physician: Juan Carlos Dubose MD Referring Physician: Not on Staff, Referring MD Allergies, Adverse Reactions, Alerts Substance Reaction Severity Status sulfa drugs Breathing problem Active Bactrim bruising Active Motrin Breathing problem GI upset Active Compazine unknown Active Immunizations Given and Recorded Vaccine Date Status Refusal Reason influenza virus vaccine, inactivated 04/29/22 Darren rded influenza virus vaccine, inactivated 05/10/21 Darren rded [...] virus vaccine, inactivated 6 07/08/10 Gi mikaela SARS-CoV-2 (COVID-19) mRNA-1273 vaccine 08/11/21 R ecorded SARS-CoV-2 (COVID-19) mRNA-1273 vaccine 10/30/20 R ecorded SARS-CoV-2 (COVID-19) mRNA-1273 vaccine 10/02/20 R ecorded Influenza Virus Vaccine (oldterm) 7 04/29/20 Recor [...] Given Patient Refuses 1Admin Note: Administered at [facility] on [facility] in [place]. 2Location History: [facility] pharmacy 3Result Comment: [06/27/2014] PT HAD AT [facility] 4Admin Note: VIS GIVEN VIS DATE 01/30/2012 5Admin Note: flulaval vis given vis date 02/22/2011 6Admin Note: vis given 03/09/10 7Result Comment: Received at [facility] on [facility] 8Admin Note: VIS given 9Admin Note: [...] VIS GIVEN 18Admin Note: VIS GIVEN Medications aspirin 81 mg oral capsule 1 capsule = 81 mg, By Mouth, Daily in AM, 0 Refills, Maintenance, 09/14/22 9:38:00 EST, Partial fill upon patient request if the prescription is for a schedule II opioid drug. Start Date: 09/14/22 Status: Ordered lidocaine 5% topical film 1 patch, Topically, Daily, PRN NEEDED FOR PAIN REMOVE AFTER 12 HOURS, # 30 patch, 1 Refills, Maintenance, 07/07/22 18:54:00 EST, [facility]ORE [id number], 30, APPLY 1 PATCH TOPICALLY DAILY NEEDED FOR PAIN REMOVE AFTER 12 HOURS, 160, cm, 06/07/22 9:36:00... Start Date: 07/07/22 Status: Ordered Mapap Arthritis Pain 650 mg oral tablet, extended release 2 tablet = 1,300 mg, By Mouth, Every 8 hours, PRN as needed for pain, # 100 tablet, 1 Refills, Maintenance, 10/21/22 15:42:00 EDT, ER Tablet, [id number], Partial fill upon patient request if the prescription is for a schedule II opioid drug.,... Start Date: 10/21/22 Status: Ordered montelukast 10 mg oral tablet 10 mg, 1, tablet, By Mouth, Daily at bedtime, TAKE 1 TABLET BY MOUTH EVERY DAY IN THE EVENING, # 30tablet, Refills 11, Tot. Refills 11, Maintenance, 10/31/22 16:24:00 EDT, Route to Pharmacy Electronically, [facility]/pharmacy #1972, Partial fill upon patien... Start Date: 10/31/22 Status: Ordered oxyCODONE 5 mg oral capsule See Instructions, PRN as needed for pain, 1 capsule By Mouth Every 4-6 hours, 0 Refills, Maintenance, 09/16/22 6:43:00 EST, Capsule, Partial fill upon patient request if the prescription is for a schedule II opioid drug. Start Date: 09/16/22 Status: Ordered Premarin 0.3 mg oral tablet 1 tablet = 0.3 mg, By Mouth, Daily, # 30 tablet, 11 Refills, Maintenance, 07/12/22 14:20:00 EST, [facility], Partial fill upon patient request if the prescription is for a schedule II opioid drug., 160, cm, 07/12/22 13:43:00 EST, Height, 88.2,... Start Date: 07/12/22 Status: Ordered Spiriva Respimat 1.25 mcg/inh inhalation aerosol 2 puffs, Inhalation, Daily, # 1 each, 11 Refills, Maintenance, 11/21/22 12:15:00 EDT, [facility], Partial fill upon patient request if the prescription is for a schedule II opioid drug., 161,cm, 10/31/22 14:08:00 EDT, Height, 85, kg, 09/16/22... Start Date: 11/21/22 Status: Ordered Symbicort 160mcg/4.5mcg Inhaler 2, puffs, Inhalation, 2 times a day, rinse mouth and throat after use, # 10.2 Gm, Refills 11, Tot. Refills 11, Maintenance, 11/24/22 19:11:00 EDT, Aerosol, Route to Pharmacy Electronically, [id number], [facility]/pharmacy #1972, 161... Start Date: 11/24/22 Status: Ordered Tessalon Perles 100 mg oral capsule 1 capsule = 100 mg, By Mouth, 3 times a day, for 7 days, # 21 capsule, 0 Refills, Acute 12/17/22 18:11:00 EDT, 12/10/22 18:11:00 EDT, Capsule, [facility], Partial fill upon patient request ifthe prescription is for a schedule II opioid drug.,... Start Date: 12/10/22 Stop Date: 12/17/22 Status: Ordered traMADol 50 mg oral tablet 1 tablet = 50 mg, By Mouth, Every 4 hours, PRN as needed for pain, 0 Refills, Maintenance, 236:44:00 EST, Tablet, Partial fill upon patient request if the prescription is for a schedule II opioid drug. Start Date: 09/16/22 Status: Ordered traMADol 50 mg oral tablet 1 tablet = 50 mg, By Mouth, 2 times a day, for severe pain due to rotator cuff tear. may obtain fewer, # 60 tablet, 0 Refills, Maintenance, 12/01/22 18:54:00 EDT, [facility], Partial fill upon patient request if the prescription is for a sched... Start Date: 12/01/22 Status: Ordered Ventolin HFA 108 mcg/inh inhalation aerosol with adapter 2 puffs, Inhalation, Every 6 hours, PRN for wheezing, BILL BRAND NAME PER INSURANCE, # 8 Gm, 5 Refills, Maintenance, 10/21/22 15:42:00 EDT, Aerosol, [facility], Partial fill upon patient request if the prescription is for a schedule II opioid... Start Date: 10/21/22 Status: Ordered verapamil 180 mg oral capsule, extended release 1 capsule, By Mouth, Daily, # 30 capsule, 5 Refills, Maintenance, 10/11/22 9:52:00 EDT, [facility], 161, cm, 10/11/22 9:14:00 EDT, Height, 85, kg, 09/16/22 6:46:00 EST, Dry Weight Start Date: 10/11/22 Status: Ordered ZyrTEC 10 mg oral tablet 1 tablet = 10 mg, By Mouth, Daily at bedtime, # 30 tablet, 5 Refills, Maintenance, 10/31/22 16:24:00 EDT, Tablet, [facility], Partial fill upon patient request if the prescription is for a schedule II opioid drug., 161, cm, 10/31/22 14:08:00 E... Start Date: 10/31/22 Status: Ordered Problem List Condition Confirmation Course Effective Dates Status Health St atus Informant Asthma Confirmed 07/05/05 Active Bipolar disorder 1, 2, 3 Confirmed Active Chronic back pain Confirmed 07/05/05 Active Gastric nodule 4 Confirmed Active H/O ovarian cancer 5 Confirmed Active Hiatal hernia Confirmed Active Hysterectomy Confirmed Active Irritable bowel syndrome 6 Confirmed Active Kidney stone Confirmed Active Chronic migraine Confirmed Active OCD Confirmed Active *Joseph Resendez, Market Research Assistant, ICP [phone] Confirmed Active 1Jantoinette Streeter [facility] Psychiatry [place] 2Case Music Therapist Bhumi Proctor ([facility]); Psychiatrist - Dr Konstantin Narvaez 3admitted at adult partial hospitalization program (adult intensive short term out-pt psychiatric program). 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 BRCA1/2 negative,seen by genetics 6follow up at [facility] - Dr Richey. Multiple endoscopies, all normal. Other diagnosis is Non-ulcer dyspepsia Results Radiology Reports * Exam Date Time Procedure Performing Provider Status 12/10/22 5:29 PM Chest 2 Views Frontal and Lat Naima Hernandez; Auth (Verified) Notes: (Chest 2 Views Frontal and Lat) Reason For Exam: r/o PNA;Cough RESULT: Chest 2 Views Frontal and Lat Chest 2 Views Frontal and Lat Hx of Present Illness: cough and SOB; Reason: Cough; r o PNA; Clinical Question(s): Pneumonia COMPARISON: 10/31/2022 FINDINGS: LINES AND TUBES: None. LUNGS AND PLEURA: Clear lungs. Normal pulmonary vascularity. No pleural effusion. No pneumothorax. HEART, MEDIASTINUM AND LUCIO: Heart is normal in size. Normal mediastinal and hilar contour. BONES AND SOFT TISSUES: No acute abnormality. IMPRESSION: No acute abnormality. WSN: [id number] Ordering Physician: Jv Olmedo Dictated By: Zurdo Caba MD Dictated Date/Time: 12/10/22 5:39 pm Reviewed By: Zurdo Caba MD Signed By: Zurdo Caba MD Signed Date/Time: 12/10/22 5:39 pm Transcribed By: LUNA Transcribed Date/Time: 12/10/22 5:39 pm Vital Signs Most recent to oldest [Reference Range]: 1 2 3 Oxygen Saturation [94-100 %] 96 % 1 (12/10/22 5:39 PM) 98 % (12/10/22 3:38 PM) 98 % (12/10/22 3:33 PM) Pulse Rate [55-90 bpm] 87 bpm (12/10/22 3:38 PM) 84 bpm (12/10/22 3:33 PM) Blood Pressure [90-138/55-84 mm Hg] 151/78mm Hg *H* (12/10/22 3:38 PM) Respiratory Rate [16-30 br/min] 17 br/min (12/10/22 3:38 PM) Temperature [96.8-100.4 DegF] 98.7 DegF (12/10/22 3:38 PM) Mode of Delivery (Oxygen) Room air (12/10/22 5:39 PM) Room air (12/10/22 3:38 PM) Room air (12/10/22 3:33 PM) Blood pressure sites Arm, left (12/10/22 3:38 PM) Temperature Route Oral (12/10/22 3:38 PM) 1Result Comment: Ambulatory Social History Social History Type Response Smoking Status Never smoker entered on: 02/07/14 Sex Female Note * Jv Olmedo MD: PERFORM Event Display: Patient Education Leaflets Authored Date: [id number] Viral Upper Respiratory Illness (Adult) ?? [id number] Viral Upper Respiratory Illness (Adult) You have a viral upper respiratory illness (URI), which is another term for the common cold. This viral illness is contagious during the first few days. It's spread through the air by coughing and sneezing. It may also be spread by direct contact (touching the sick person and then touching your owneyes, nose, or mouth). Frequent handwashing will lower risk of spread. Most viral illnesses go awaywithin 7 to 10 days with rest and simple home remedies. Sometimes the illness may last for several weeks. Antibiotics will not kill a virus, and they are generally not prescribed for this condition. Home care ??? If symptoms are severe, rest at home for the first 2 to 3 days or as advised. When you resume activity, don't let yourself get too tired. ??? Don't smoke. If you need help stopping, talk with your healthcare provider. ??? Stay away from cigarette smoke (yours or others???). ??? You may use acetaminophen or ibuprofen to control pain and fever, unless another medicine was prescribed.??Talk with your provider before taking these medicines if you have chronic liver or kidney disease. Also talk with your provider if you've had a stomach ulcer or digestive bleeding, or you take blood-thinning medicines. Never give aspirin to anyone under 18 years of age who is ill with a viral infection or fever. It may cause severe liver or brain damage, or even . ??? Your appetite may be poor, so a light diet is OK. Stay well hydrated by drinking 6 to 8 glasses of fluids per day (water, soft drinks, juices, tea, or soup). Extra fluids will help loosen secretions in the nose and lungs. ??? Vwnq-crw-nnjuphq cold medicines will not shorten the length of time you???re sick. But they may be helpful for cough, sore throat, and nasal and sinus congestion. If you take prescription medicines, ask your healthcare provider or pharmacist which omzn-egh-xmwhrna medicines are safe to use. Don'tuse decongestants, if you have high blood pressure, without first talking with your healthcare provider. ??? If you are taking other prescribed medicine, contact your healthcare provider before taking any kemf-fof-pcruoeg medicines. ?? Follow-up care Follow up with your healthcare provider, or as advised. ?? When to seek medical advice Call your healthcare provider right away if any of these occur: ??? Cough with lots of colored sputum (mucus) ??? Severe headache; face, neck, or ear pain ??? Difficulty??swallowing??due to throat pain ??? Fever of 100.4??F (38??C) or higher , or as directed by your healthcare provider ?? Call 911 Call 911 if any of these occur: ??? Chest pain, shortness of breath, wheezing, or difficulty breathing ??? Coughing up blood ??? Very severe pain with swallowing, especially if it goes along with a muffled voice ??? Feeling of doom ??? Feeling dizzy, faint, or confused ??? Lips or skin is blue, purple or kothari in color ?? Last Reviewed Date: 2021 ?? [id number] [employer]. All rights reserved. This information is not intended as a substitute for professional medical care. Always follow your healthcare professional's instructions. ?? Laboratory * [facility] , CIS S: TRANSCRIBE Zurdo Caba MD: VERIFY Event Display: Result: Authored Date: [id number] Chest 2 Views Frontal and Lat Hx of Present Illness: cough and SOB; Reason: Cough; r o PNA; Clinical Question(s): Pneumonia COMPARISON: 10/31/2022 FINDINGS: LINES AND TUBES: None. LUNGS AND PLEURA: Clear lungs. Normal pulmonary vascularity. No pleural effusion. No pneumothorax. HEART, MEDIASTINUM AND LUCIO: Heart is normal in size. Normal mediastinal and hilar contour. BONES AND SOFT TISSUES: No acute abnormality. IMPRESSION: No acute abnormality. WSN: [id number] Ordering Physician: Jv Olmedo Dictated By: Zurdo Caba MD Dictated Date/Time: 12/10/22 5:39 pm Reviewed By: Zurdo Caba MD Signed By: Zurdo Caba MD Signed Date/Time: 12/10/22 5:39 pm Transcribed By: LUNA Transcribed Date/Time: 12/10/22 5:39 pm Patient Care team information Care Team Personnel Name: Mitch Lopez Position: [facility] PCO Associate Professional Member Role: PCP Address: Address: [address] [place] [address] [place], [place] [address] Name: Birgit Webber Position: [facility] ED TA [facility] Name: Juan Carlos Dubose MD Position: [facility] ED Medicine MD Member Role: Admitting Physician Address: Address: [address] [place] [address] Department of Emergency Medicine [address] Name: Jv Olmedo MD Position: [facility] Resident Member Role: ED Resident Address: Address: [address] [place] [address] Name: Marie Luna RN Position: [facility] ED RN W/OE and Tasks Member Role: Patient Care Provider Care Team Related Persons Name: GABINO CASTANEDA Address: home [address] [place] [address] Name: JERROD BEAUCHAMP Address: [place], [place] Name: BRE MIRANDA Address: [address] [place] [address] Name: ALEYDA BEE Address: home [address] [place] [address] Name: ALEYDA BEE Address: home [address] [place] [address] Name: ROMIE PUENTES Address: home [address] [place] [address]
--- OUTSIDE RECORDS SUMMARY | 2024-04-05 15:14 | XMS_ITS | Continuity of Care Document ---
Author Organization [facility] Address [address] [place] [address]- Care Team Providers Care Care Management Associate Name Role Phone Mitch Lopez Primary Care Physician [phone] [facility] 08[facility]16[facility]22 - 09/15/22 [facility] [address] [place] [id number] Allergies, Adverse Reactions, Alerts Substance Reaction Severity Status sulfa drugs Breathing problem Active Motrin Breathing problem GI upset Active Bactrim bruising Active Compazine unknown Active Immunizations Given and [...] 10/30/20 R ecorded SARS-CoV-2 (COVID-19) mRNA-1273 vaccine 3/5/21 R ecorded Influenza Virus Vaccine (oldterm) 7 [...] 1Admin Note: Administered at [facility] on [facility] in [place]. 2Location History: [facility] pharmacy 3Result Comment: [06/27/2014] PT HAD AT [facility] 4Admin Note: VIS GIVEN VIS DATE 01/30/2012 5Admin Note: flulaval vis given vis date 02/22/2011 6Admin Note: vis given 03/09/10 7Result Comment: Received at [facility] on [facility] 8Admin Note: VIS given 9Admin Note: 2nd [...] opioid drug. Start Date: 09/14/22 Status: Ordered Breo Ellipta 200 mcg-25 mcg/inh inhalation powder 1 puffs, Inhalation, Daily, 0 Refills, Maintenance, 09/14/22 9:49:00 EST, Powder, Partial fill uponpatient request if the prescription is for a schedule II opioid drug. Start Date: 09/14/22 Status: Ordered lidocaine 5% topical film 1 patch, Topically, Daily, PRN NEEDED FOR PAIN REMOVE AFTER 12 HOURS, # 30 patch, 1 Refills, Maintenance, 07/07/22 18:54:00 EST, [id number], 30, APPLY 1 PATCH TOPICALLY DAILY NEEDED FOR PAIN REMOVE AFTER 12 HOURS, 160, cm, 06/07/22 9:36:00... Start Date: 07/07/22 Status: Ordered life line via cellular /wrist [...] 30 tablet, 3 Refills, Maintenance, 01/03/22 11:56:00EDT, [facility]/pharmacy #1972, Partial fill upon patient request if the prescription is for a schedule IIopioid drug., 160, cm, 01/03/22 11:03:00 EDT, Heigh... Start Date: 01/03/22 Status: Ordered montelukast 10 mg oral tablet 10 mg, 1, tablet, By Mouth, Daily at bedtime, TAKE 1 TABLET BY MOUTH EVERY DAY IN THE EVENING Start Date: 05/05/21 Status: Ordered predniSONE 10 mg oral tablet 1 tablet = 10 mg, By Mouth, Daily, # 30 tablet, 0 Refills, Maintenance, 08/30/22 12:40:00 EST, Tablet, [facility], Partial fill upon patient request if the prescription is for a schedule II opioid drug., 160, cm, 08/29/22 13:15:00 EST, Height,... Start Date: 08/30/22 Stop Date: 09/29/22 Status: Ordered Premarin 0.3 mg oral tablet 1 tablet = 0.3 mg, By Mouth, Daily, # 30 tablet, 11 Refills, Maintenance, 07/12/22 14:20:00 EST, [facility]/pharmacy #1972, Partial fill upon patient request if the prescription is for a schedule II opioid drug., 160, cm, 07/12/22 13:43:00 EST, Height, 88.2,... Start Date: 07/12/22 Status: Ordered Shingrix intramuscular injection = 0.5 mL, Intramuscular, Once, repeat dose in 2 to 6 months, # 2 each, 0 Refills, Soft Stop, 06/07/22 10:25:00 EST, Powder, [facility], Partial fill upon patient request if the prescription is for a schedule II opioid drug., 0.5 mL Intramuscul... Start Date: 06/07/22 Status: Ordered Spiriva Respimat 1.25 mcg/inh inhalation aerosol 2 puffs, Inhalation, Daily, # 1 each, 11 Refills, Maintenance, 06/07/22 10:22:00 EST, [facility]/pharmacy #1972, Partial fill upon patient request if the prescription is for a schedule II opioid drug., 160,cm, 06/07/22 9:36:00 EST, Height, 88.2, kg, ... Start Date: 06/07/22 Status: Ordered Symbicort 160mcg/4.5mcg Inhaler 2, puffs, Inhalation, 2 times a day, rinse mouth and throat after use, # 10.2 Gm, Refills 11, Tot. Refills 11, Maintenance, 08/29/22 13:48:00 EST, Aerosol, Route to Pharmacy Electronically, [id number], [facility]/pharmacy #1972, 160... Start Date: 08/29/22 Status: Ordered Tessalon Perles 100 mg oral capsule 1 capsule = 100 mg, By Mouth, 3 times a day, PRN Cough, # 21 capsule, 0 Refills, Maintenance, 06/17/22 17:34:00 EST, [facility], Partial fill upon patient request if the prescription is for aschedule II opioid drug., 160, cm, 06/07/22 9:36:00... Start Date: 06/17/22 Stop Date: 06/24/22 Status: Ordered Ventolin HFA 108 mcg/inh inhalation aerosol with adapter 2 puffs, Inhalation, Every 6 hours, PRN for wheezing, BILL BRAND NAME PER INSURANCE, # 8 Gm, 5 Refills, Maintenance, 06/15/22 10:39:00 EST, Aerosol, [facility], Partial fill upon patient request if the prescription is for a schedule II opioid... Start Date: 06/15/22 Status: Ordered verapamil 180 mg oral capsule, extended release 1 capsule, By Mouth, Daily, # 30 capsule, 5 Refills, Maintenance, 06/16/22 9:46:00 EST, [id number], 160, cm, 06/07/22 9:36:00 EST, Height, 88.2, kg, 11/11/21 9:53:00 EDT, Dry Weight Start Date: 06/16/22 Status: Ordered ZyrTEC 10 mg oral tablet 1 tablet = 10 mg, By Mouth, Daily at bedtime, 0 Refills, Maintenance, 09/14/22 9:37:00 EST, Partialfill upon patient request if the prescription is for a schedule II opioid drug. Start Date: 09/14/22 Status: Ordered Problem List Condition Confirmation Course Effective Dates Status Health St atus Informant Asthma Confirmed 07/05/05 Active Bipolar disorder 1, 2, 3 Confirmed Active Chronic back pain Confirmed 07/05/05 Active Gastric nodule 4 Confirmed Active H/O ovarian cancer 5 Confirmed Active Hiatal hernia Confirmed Active Hysterectomy Confirmed Active Irritable bowel syndrome 6 Confirmed Active Kidney stone Confirmed Active Chronic migraine Confirmed Active Obese class II Confirmed Active OCD Confirmed Active *Joseph Resendez, Farm Operator, ICP [phone] Confirmed Active 1Jantoinette Streeter [facility] Psychiatry [place] 2Case Plate [place] Proctor ([facility]); Psychiatrist - Dr Konstantin Narvaez 3admitted at adult partial hospitalization program (adult intensive short term out-pt psychiatric program). 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 BRCA1/2 negative,seen by genetics 6follow up at [facility] - Dr Desilets. Multiple endoscopies, all normal. Other diagnosis is Non-ulcer dyspepsia Social History Social History Type Response Smoking Status Never smoker entered on: 02/07/14 Sex Female Patient Care team information Care Team Personnel Name: Mitch Lopez Position: [facility] PCO Associate Professional Member Role: PCP Address: Address: [address] [place] [address] [place] [address]- Care Team Related Persons Name: GABINO CASTANEDA Address: home [address] [place] [id number] Name: BRE MIRANDA Address: home [address] [place] [address] Name: ALEYDA BEE Address: home [address] [place] [address] Name: ALEYDA BEE Address: home [address] [place] [phone] Name: ROMIE PUENTES Address: [address] [address]
--- OUTSIDE RECORDS SUMMARY | 2024-04-05 15:14 | XMS_ITS | Continuity of Care Document ---
Author Organization [facility] Address [address] [place] [address]- Care Team Providers Care Supervisor Grounds Name Role Phone Mitch Lopez Primary Care Physician [facility] 04[facility]16[facility]20 - 05/16/20 [facility] [address] [place] [id number]- [facility] Allergies, Adverse Reactions, Alerts Substance Reaction Severity Status aspirin wheezing Active Motrin GI upset Active Compazine unknown Active Bactrim bruising Active Immunizations Given and Recorded Vaccine Date Status Refusal Reason influenza virus vaccine, inactivated 1 04/05/18 Gi mikaela influenza virus vaccine, inactivated 2 05/26/16 Re corded influenza virus vaccine, inactivated 3 03/31/14 Re corded influenza virus vaccine, inactivated 4 04/10/12 Gi mikaela influenza virus vaccine, inactivated 5 05/18/11 Gi mikaela influenza virus vaccine, inactivated 6 07/08/10 Gi mikaela tetanus/diphtheria/pertussis, acel(Tdap) 04/23/14 Given hepatitis B adult vaccine 7 01/09/13 Given hepatitis B adult vaccine 8 12/11/12 Given hepatitis B adult vaccine 9 04/10/12 Given hepatitis B adult vaccine 10 02/02/12 Given influ virus vac, H1N1, inactive(oldterm) 11 10/15/09 Given FluLaval (oldterm) 12 05/15/09 Given diphtheria-tetanus toxoids (DT) 13 12/10/08 Given Influenza Inactive (IM) (oldterm) 14 06/18/08 Give n Influenza Vaccine (oldterm) 15 05/23/07 Given Pneumococcal Vacc (oldterm) 16 07/18/06 Given Influenza Virus Vaccine (oldterm) 17 05/03/06 Give n Not Given Vaccine Date Status Refusal Reason pneumococcal 23-valent vaccine 3/16/14 Not Given Patient Refuses 1Admin Note: Administered at [facility] on [address] in [place]. [facility] 3Result Comment: [06/27/2014] PT HAD AT [facility] 4Admin Note: VIS GIVEN VIS DATE 01/30/2012 5Admin Note: flulaval vis given vis date 02/22/2011 6Admin Note: vis given 03/09/10 7Admin Note: 2nd in series of 3. 8Admin Note: 1st in series of 3. Vis given dated 09/11 9Admin Note: VIS GIVEN VIS DATE 09/01/11 #2 VACCINE 10Admin Note: VIS 09/11 Hep B #1 11Admin Note: VIS GIVEN VIS DATE05/01/09 12Admin Note: vis given 13Admin Note: VIS GIVEN 14Admin Note: vis given 15Admin Note: VIS GIVEN 16Admin Note: VIS GIVEN 17Admin Note: VIS given Medications 1 warm moist heating pad 1 [...] 17:26:32, Powder Start Date: 12/12/16 Status: Ordered Compression Stockings See Instructions, # 2 pair, Refills 0, Tot. Refills 0, Maintenance, surgical, calf length 20-30 mm Hg, DX edema, R 60.9, 10/16/18 16:21:49 EDT, Compound Start Date: 10/16/18 Status: Ordered Estrace Vaginal Cream 0.1 mg/g = 1 Gm, Vaginally, Daily at bedtime, # 42.5 Gm, 2 Refills, Maintenance, 03/04/20 12:12:00 EDT, [facility]/pharmacy #1972, 160.02, cm, 03/04/20 11:50:00 EDT, Height, 93.1, kg, 03/04/20 11:50:00 EDT, Dry Weight Start Date: 03/04/20 Status: Ordered gabapentin 300 mg oral capsule 900 mg, 3, capsule, By Mouth, 3 times a day, # 90 capsule, Refills 0, Maintenance, 09/09/19 11:53:00 EST Start Date: 09/09/19 Status: Ordered POISE PADS POISE PADS, See Instructions, # 180 each, Refills 5, Tot. Refills 5, Maintenance, For stress incontinence (N93.3), Cystoscopy (Z98.890)., 02/27/19 14:16:26 EDT, Compound Start Date: 02/27/19 Status: Ordered ProAir HFA 90 mcg/inh inhalation aerosol with adapter 2, puffs, Inhalation, Every 6 hours, PRN, # 1 each, Refills 5, Tot. Refills 5, Maintenance, 03/12/20 7:19:00 EDT, Route to Pharmacy Electronically, [id number], [facility]/pharmacy #1972, 160.02, cm, 03/04/20 11:50:00 EDT, Height, 93... Start Date: 03/12/20 Stop Date: 09/08/20 Status: Ordered Rollator Walker Rollator Walker, See [...] EDT, Capsule Start Date: 02/27/19 Status: Ordered verapamil 100 mg oral capsule, extended release See Instructions, 1 CAPSULE BY MOUTH DAILY AT BEDTIME,X90 DAYS, # 30 capsule, 11 Refills, Maintenance, [id number], 160.02, cm, 10/11/19 15:24:00 EDT, Height, 85.91, kg, 08/01/19 12:13:00 EST, Dry Weight Start Date: 11/04/19 Status: Ordered verapamil 100 mg oral capsule, extended release 1 capsule = 100 mg, By Mouth, Daily at bedtime, # 90 capsule, 1 Refills, Maintenance, 08/01/19 15:54:00 EST, ER Capsule, [facility], Patient lost medication. Please fill this script and cancel old script., 160.02, cm, 08/01/19 12:13:00 EST, He... Start Date: 08/01/19 Stop Date: 01/28/20 Status: Ordered Problem List Condition Effective Dates Status Health Status Inform ant Asthma(Confirmed) 07/05/05 Active Bipolar disorder(Confirmed) 1, 2, 3 Active Chronic back pain(Confirmed) 07/05/05 Active Gastric nodule(Confirmed) 4 Active H/O ovarian cancer(Confirmed) 5 Active Hiatal hernia(Confirmed) Active Hysterectomy(Confirmed) Active Irritable bowel syndrome(Confirmed) 6 Active Kidney stone(Confirmed) Active Chronic migraine(Confirmed) Active OCD(Confirmed) Active *Joseph Resendez, Care Coord inator, ICP [phone](Confirmed) Active 1Jantoinette Streeter [facility] [place] 2Case [employer] [place] ([facility]); Psychiatrist - Dr Konstantin Narvaez 3admitted at adult partial hospitalization program (adult intensive short term out-pt psychiatric program). 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 BRCA1/2 negative,seen by genetics 6follow up at [facility] GI - Dr Richey. Multiple endoscopies, all normal. Other diagnosis is Non-ulcer dyspepsia Social History Social History Type Response Smoking Status Never smoker entered on: 02/07/14 Sex Female
--- OUTSIDE RECORDS SUMMARY | 2024-04-05 15:14 | XMS_ITS | Continuity of Care Document ---
Author Organization [facility] Address [address] [place] [address], [address] [place] [address]- Care Team Providers Care Financial Sales Associate Name Role Phone Mitch Lopez Primary Care Physician [phone] [facility]counter [facility] Date[facility]s): 10/07/19 - 10/14/19 [facility] [address] [place] [address] Drive, [address] [place] [address]- [facility] Attending Physician: Deysi Gomez DO Allergies, Adverse Reactions, Alerts Substance Reaction Severity [...] Given Patient Refuses 1Admin Note: Administered at [facility] on [address] in [place]. 2Location History: [facility] 3Result Comment: [06/27/2014] PT HAD AT [facility] 4Admin Note: VIS GIVEN VIS DATE [...] EDT, Compound Start Date: 10/16/18 Status: Ordered gabapentin 300 mg oral capsule [...] each, Refills 5, Tot. Refills 5, Maintenance, 07/25/19 14:29:00 EST, Route to Pharmacy Electronically, [id number], [facility]/pharmacy#1972, 158, cm, 07/25/19 13:55:00 EST, Height, 91.3... Start Date: 07/25/19 Stop Date: 01/21/20 Status: Ordered Rollator Walker Rollator Walker, See [...] Capsule Start Date: 02/27/19 Status: Ordered SUMAtriptan 25 mg oral tablet 1 tablet = 25 mg, By Mouth, Daily, PRN for migraine headache, may repeat dose after 2 hours up to amaximum of 2 doses take no more than 10 doses a month, # 9 tablet, 0 Refills, Acute 11/22/19 12:00:00 EDT, 10/11/19 16:15:00 EDT, Tablet, [facility]/pharmacy... Start Date: 10/11/19 Stop Date: 11/22/19 Status: Ordered verapamil 100 mg oral capsule, [...] stone(Confirmed) Active Chronic migraine(Confirmed) Active OCD(Confirmed) Active 1Jantoinette Streeter [facility] [place] 2Case Cafe Operator [place] ([facility]); Psychiatrist - Dr Konstantin Narvaez 3admitted at adult partial hospitalization program (adult intensive short term out-pt psychiatric program). 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 BRCA1/2 negative,seen by genetics 6follow up at [facility] GI - Dr Richey. Multiple endoscopies, all normal. Other diagnosis is Non-ulcer dyspepsia Vital Signs Most recent to oldest [Reference Range]: 1 Height 160.02 cm (10/07/19 2:44 PM) Weight 86 kg (10/07/19 2:44 PM) Body Mass Index [18.5-24.99] 33.59 *>HHI* (10/07/19 2:44 PM) Social History Social History Type Response Smoking Status Never smoker entered on: 02/07/14 Sex Female
--- OUTSIDE RECORDS SUMMARY | 2024-04-05 15:15 | XMS_ITS | Continuity of Care Document ---
Author Organization [facility] Address [address] [place] [address]- Care Team Providers Care Transformer Tester Name Role Phone Mitch Lopez Primary Care Physician [facility]s): 03/05/21 - 04/04/21 [facility] [address] [place] [address]- Allergies, Adverse Reactions, Alerts Substance Reaction Severity [...] Given Patient Refuses 1Result Comment: Received at [facility] on [address] 2Admin Note: VIS given 3Admin Note: Administered at [facility] on [address] in [place]. 4Location History: [facility] 5Result Comment: [06/27/2014] PT HAD AT [facility] 6Admin Note: VIS GIVEN VIS DATE 01/30/2012 [...] OF BREATH, # 8.5 Unknown, 5 Refills, [id number], 25, INHALE 2 PUFFS EVERY 6 HOURS NEEDED FOR WHEEZING/SHORTNESSOF BREATH, 160.02, cm, 03/30/21 15:41:00 EDT, Heigh... Start Date: 03/30/21 Status: Ordered cetirizine 10 mg oral tablet 1 tablet = 10 mg, By Mouth, Daily, # 30 tablet, 0 Refills, Maintenance, 12/04/20 17:24:00 EDT, Tablet, [facility]/pharmacy #1972, Partial fill upon patient request if the prescription is for a schedule II opioid drug., 160.02, cm, 12/04/20 17:05:00 EDT, [place]... Start Date: 12/04/20 Status: Ordered Colace sodium 100 mg oral capsule 100 mg, 1, capsule, By Mouth, 2 times a day, PRN, # 20 capsule, Refills 0, Tot. Refills 0, Maintenance, for constipation, 02/07/21 10:55:00 EDT, Route to Pharmacy Electronically, [facility]/pharmacy #1972, Partial fill upon patient request if [...] 0 Refills, Maintenance, 02/07/21 10:54:00 EDT, Gel, [facility]/pharmacy #1972, Partial fill upon patient request if the prescription is for a schedule II opioid drug., 160.02, cm, 02/04/21 15:57:00 EDT, [place]... Start Date: 02/07/21 Status: Ordered diclofenac 1% topical gel = 4 Gm, Topically, 4 times a day, PRN knee pain, Apply to painful knee, # 100 Gm, 0 Refills, Maintenance, 02/16/21 17:40:00 EDT, Gel, [facility]/pharmacy #1972, Partial fill upon patient request if [...] Gm, 0 Refills, Maintenance, 08/08/20 15:21:00 EST, [place], [facility], Partial fill upon patient request [...] 0 Refills, Maintenance, 03/08/21 18:54:00 EDT, Tablet, [facility]/pharmacy #1972, Partial fill upon patient request if the prescription is for a schedule II opioid drug., 160.02, cm, 03/08/21 18:21:00... Start Date: 03/08/21 Stop Date: 03/22/21 Status: Ordered ProAir HFA 90 mcg/inh inhalation aerosol with adapter 2, puffs, Inhalation, Every 6 hours, PRN, # 1 each, Refills 5, Tot. Refills 5, Maintenance, 05/19/20 16:20:00 EDT, Route to Pharmacy Electronically, [id number], [facility]/pharmacy#1972, 160.02, cm, 04/28/20 13:40:00 EDT, Height, 9... Start Date: 05/19/20 Stop Date: 11/15/20 Status: Ordered ProAir HFA 90 mcg/inh inhalation aerosol with adapter 2, puffs, Inhalation, Every 6 hours, PRN, # 1 each, Refills 5, Tot. Refills 5, Maintenance, 06/16/20 18:28:00 EST, Route to Pharmacy Electronically, [id number], [facility]/pharmacy#1972, 160.02, cm, 05/27/20 13:10:00 EDT, Height, 9... [...] Refills, Maintenance, 02/04/21 9:28:00 EDT, [facility], 160.02, cm, 01/26/21 9:12:00 EDT, Height, 88.8, [...] Active *Joseph Resendez, Care Coord inator, ICP [phone](Confirmed) Active 1Jantoinette Streeter [facility] [place] 2Case [employer] [place] [facility] ([facility]); Psychiatrist [...] BRCA1/2 negative,seen by genetics 6follow up at [facility] GI - Dr Richey. Multiple endoscopies, all normal. Other diagnosis is Non-ulcer dyspepsia Social History Social History Type Response Smoking Status Never smoker entered on: 02/07/14 Sex Female
--- OUTSIDE RECORDS SUMMARY | 2024-04-05 15:15 | XMS_ITS | Continuity of Care Document ---
Author Organization [facility] Address [address], [address] [place] [address]- Care Team Providers Care Mid Teacher Name Role Phone Mitch Lopez Primary Care Physician [phone] Encounter [facility] Date(s): 07/22/20 - 08/21/20 [facility] [address] [place], [place] [address] Attending Physician: Jana Mercado Admitting Physician: Jana Mercado Referring Physician: AdmtrJana Allergies, Adverse Reactions, Alerts Substance Reaction Severity Status aspirin wheezing Active Compazine unknown Active Bactrim bruising Active [...] influenza virus vaccine, inactivated 7 05/18/11 Gi imkaela influenza virus vaccine, inactivated 8 07/08/10 Gi [...] Given Patient Refuses 1Result Comment: Received at [facility] on [address] 2Admin Note: VIS given 3Admin Note: Administered at [facility] on [address] in [place]. 4Location History: [facility] pharmacy 5Result Comment: [06/27/2014] PT HAD AT [facility] 6Admin Note: VIS GIVEN VIS DATE 01/30/2012 [...] Gm, 2 Refills, Maintenance, 03/04/20 12:12:00 EDT, [facility]/pharmacy #1972, 160.02, cm, 03/04/20 11:50:00 EDT, Height, 93.1, kg, 03/04/20 11:50:00 EDT, Dry Weight Start Date: 03/04/20 Status: Ordered Flonase 50 mcg/inh nasal spray 1 sprays, Nares, Both, 2 times a day, # 16 Gm, 0 Refills, Maintenance, 08/08/20 15:21:00 EST, [place], [facility]/pharmacy #1972, Partial fill upon patient request if [...] 07/29/20., # 120 tablet, 2 Refills, Maintenance, 07/29/20 17:21:00 EST, [facility]/pharmacy #1972, Partial fill upon patient request if the prescription is for a schedule II opioid drug.... Start Date: 07/29/20 Status: Ordered ibuprofen 600 mg oral tablet 600 mg, 1, tablet, By Mouth, 4 times a day, PRN, # 40 tablet, Refills 0, Tot. Refills 0, Maintenance, for pain, 07/15/20 20:01:00 EST, Route to Pharmacy Electronically, [facility]/pharmacy #1972, Partial fill upon patient request if the prescription is for a... Start Date: 07/15/20 Status: Ordered melatonin 3 mg oral tablet 1 tablet = 3 mg, By Mouth, Daily at bedtime, for 30 days, to help with sleep., # 30 tablet, 1 Refills, Acute 09/27/20 17:22:00 EST, 07/29/20 17:22:00 EST, [facility]/pharmacy #1972, Partial fill upon patient request if the prescription is for a schedule II o... Start Date: 07/29/20 Stop Date: 09/27/20 Status: Ordered POISE PADS POISE PADS, See Instructions, # 180 each, Refills 5, Tot. Refills 5, Maintenance, For stress incontinence (N93.3), Cystoscopy (Z98.890)., 02/27/19 14:16:26 EDT, Compound Start Date: 02/27/19 Status: Ordered ProAir HFA 90 mcg/inh inhalation aerosol with adapter 2, puffs, Inhalation, Every 6 hours, PRN, # 1 each, Refills 5, Tot. Refills 5, Maintenance, 05/19/20 16:20:00 EDT, Route to Pharmacy Electronically, [id number], [facility]/pharmacy#1972, 160.02, cm, 04/28/20 13:40:00 EDT, Height, 9... Start Date: 05/19/20 Stop Date: 11/15/20 Status: Ordered ProAir HFA 90 mcg/inh inhalation aerosol with adapter 2, puffs, Inhalation, Every 6 hours, PRN, # 1 each, Refills 5, Tot. Refills 5, Maintenance, 06/16/20 18:28:00 EST, Route to Pharmacy Electronically, [id number], [facility]/pharmacy#1972, 160.02, cm, 05/27/20 13:10:00 EDT, Height, 9... [...] once in 2 hours, # 18 tablet, 0 Refills, Soft Stop, 07/27/20 16:51:00 EST, [facility], Partial fill upon patient request if theprescription is for a schedule II opioid drug., 160... Start Date: 07/27/20 Status: Ordered verapamil 100 mg oral capsule, extended release See Instructions, 1 CAPSULE BY MOUTH DAILY AT BEDTIME,X90 DAYS, # 30 capsule, 11 Refills, Maintenance, [facility], 160.02, cm, 10/11/19 15:24:00 EDT, Height, 85.91, kg, 08/01/19 12:13:00 EST, Dry Weight Start Date: 11/04/19 Status: Ordered verapamil 180 mg oral capsule, extended release 1 capsule = 180 mg, By Mouth, Daily, dose increase to 180mg qd 07/27/20, # 30 capsule, 5 Refills, Maintenance, 07/27/20 16:51:00 EST, [facility], Partial fill upon patient [...] Active OCD(Confirmed) Active *[facility], [facility] [phone](Confirmed) Active Dyan Streeter [facility] Psychiatry [place] 2Case Grievance Manager [place] ([facility]); Psychiatrist - Dr Konstantin Narvaez 3admitted at adult partial hospitalization program (adult intensive short term out-pt psychiatric program). 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 BRCA1/2 negative,seen by genetics 6follow up at [facility] GI - Dr Richey. Multiple endoscopies, all normal. Other diagnosis is Non-ulcer dyspepsia Social History Social History Type Response Smoking Status Never smoker entered on: 02/07/14 Sex Female
--- OUTSIDE RECORDS SUMMARY | 2024-04-05 15:15 | XMS_ITS | Continuity of Care Document ---
Author Organization [facility] Address [address] [place] [address], [address] [place] [address]- Care Team Providers Care Staff Developer Name Role Phone Mitch Lopez Primary Care Physician [facility]): [facility] - 05/14/21 [facility] [address] [place] [address], [address] [place], [place] [address] Attending Physician: Admmalissa, [id number] Admitting Physician: Admtr, [id number] Referring Physician: Admtr, Ar8 Allergies, Adverse Reactions, Alerts Substance Reaction Severity Status sulfa drugs Active Compazine unknown Active Bactrim bruising Active Immunizations Given and Recorded Vaccine Date Status Refusal Reason SARS-CoV-2 (COVID-19) mRNA-1273 vaccine 10/30/20 R ecorded SARS-CoV-2 (COVID-19) mRNA-1273 vaccine 10/02/20 R ecorded Influenza Virus Vaccine (oldterm) 1 04/29/20 Recor ded Influenza Virus Vaccine (oldterm) 2 05/03/06 Given influenza virus vaccine, inactivated 3 04/05/18 Gi mikaela influenza virus vaccine, inactivated 4 05/26/16 Re corded influenza virus vaccine, inactivated 5 03/31/14 Re corded influenza virus vaccine, inactivated 6 04/10/12 Gi miakela influenza virus vaccine, inactivated 7 05/18/11 Gi [...] Given Patient Refuses 1Result Comment: Received at [facility] on [address] 2Admin Note: VIS given 3Admin Note: Administered at [facility] on [address] in [place]. 4Location History: [facility] pharmacy 5Result Comment: [06/27/2014] PT HAD AT [facility] 6Admin Note: VIS GIVEN VIS DATE 01/30/2012 [...] HOURS NEEDED FOR WHEEZING/SHORTNESS OF BREATH, # 1 each, 0 Refills, 04/14/21 19:19:00 EDT, [facility]/pharmacy #1972, INHALE 2 PUFFS EVERY 6 HOURS NEEDED FOR WHEEZING/SHORTNESS OF BREATH, 160.02, cm, 04/14/21 14... Start Date: 04/14/21 Status: Ordered Azithromycin 5 Day Dose Pack 250 mg oral tablet See Instructions, as directed on package labeling, # 6 tablet, 0 Refills, Maintenance, 05/05/21 9:14:00 EDT, [facility], Partial fill upon patient request if the prescription is for a schedule II opioid drug., 160.02, cm, 05/05/21 7:58:00 EDT,... Start Date: 05/05/21 Status: Ordered buPROPion 150 mg/24 hours (XL) oral tablet, extended release TAKE 1 TABLET BY MOUTH EVERY DAY Start Date: 05/05/21 Status: Ordered [facility] MEL[facility] 3 MG TABLET [facility] MEL[facility] 3 MG TABLET, 1, tablet, By Mouth, Daily at bedtime, # 30 tablet, 2 Refills, Maintenance, 02/17/21 19:34:00 EDT, 160.02, cm, 02/16/21 17:20:00 EDT, Height, 88.8, kg, 11/24/20 15:58:00 EDT, Dry Weight Start Date: 02/17/21 Status: Ordered Estrace Vaginal Cream 0.1 mg/g = 1 Gm, Vaginally, Every Monday and , # 42.5 Gm, 2 Refills, Maintenance, 09/08/20 14:57:00EST, [facility]/pharmacy #1972, 160.02, cm, 07/29/20 16:36:00 EST, Height, 92.3, kg, 07/24/20 13:24:00 EST, Dry Weight Start Date: 09/08/20 Status: Ordered FLUoxetine 40 mg oral capsule TAKE 1 CAPSULE BY MOUTH EVERY DAY Start Date: 05/05/21 Status: Ordered gabapentin 300 mg oral capsule 900 mg, 3, capsule, By Mouth, 3 times a day, # 90 capsule, Refills 0, Maintenance, 09/09/19 11:53:00 EST Start Date: 09/09/19 Status: Ordered montelukast 10 mg oral tablet TAKE 1 TABLET BY MOUTH EVERY DAY IN THE EVENING Start Date: 05/05/21 Status: Ordered naproxen 500 mg oral tablet 1 tablet = 500 mg, By Mouth, 2 times a day, # 28 tablet, 0 Refills, Maintenance, 03/08/21 18:54:00 EDT, Tablet, [facility], Partial fill upon patient request if the prescription is for a schedule II opioid drug., 160.02, cm, 03/08/21 18:21:00... Start Date: 03/08/21 Stop Date: 03/22/21 Status: Ordered ProAir HFA 90 mcg/inh inhalation aerosol with adapter 2, puffs, Inhalation, Every 6 hours, PRN, # 1 each, Refills 5, Tot. Refills 5, Maintenance, 05/19/20 16:20:00 EDT, Route to Pharmacy Electronically, [id number], [facility], 160.02, cm, 04/28/20 13:40:00 EDT, Height, 9... Start Date: 05/19/20 Stop Date: 11/15/20 Status: Ordered ProAir HFA 90 mcg/inh inhalation aerosol with adapter 2, puffs, Inhalation, Every 6 hours, PRN, # 1 each, Refills 5, Tot. Refills 5, Maintenance, 06/16/20 18:28:00 EST, Route to Pharmacy Electronically, [id number], [facility], 160.02, cm, 05/27/20 13:10:00 EDT, Height, 9... Start Date: 06/16/20 Stop Date: 12/13/20 Status: Ordered Spiriva Respimat 1.25 mcg/inh inhalation aerosol 2 PUFFS INHALATION ONCE A DAY 30 DAYS Start Date: 05/05/21 Status: Ordered stop duloxetine stop duloxetine, See Instructions, # 1 each, Refills 0, Tot. Refills 0, Maintenance, d/c rx, pt is on fluoxetine, 05/05/21 8:49:00 EDT, Supply, 160.02, cm, 05/05/21 7:58:00 EDT, Height, 85, kg, 03/11/21 17:07:00 EDT, Dry Weight Start Date: 05/05/21 Status: Ordered SUMAtriptan 50 mg oral tablet 1 tablet = 50 mg, By Mouth, Once, PRN Headache, may repeat dose once in 2 hours, # 18 tablet, 1 Refills, Soft Stop, 10/07/20 9:06:00 EST, [facility], Partial fill upon patient request if the prescription is for a schedule II opioid drug., 160.... Start Date: 10/07/20 Status: Ordered Symbicort 160mcg/4.5mcg Inhaler INHALE 2 PUFFS TWICE A DAY Start Date: 05/05/21 Status: Ordered verapamil 180 mg oral capsule, extended release 1 capsule, By Mouth, Daily, # 30 capsule, 5 Refills, Maintenance, 02/04/21 9:28:00 EDT, [facility], 160.02, cm, 01/26/21 9:12:00 EDT, Height, 88.8, [...] Active *Joseph Resendez, Care Coord inator, ICP [phone](Confirmed) Active 1Jantoinette Streeter [facility] [place] 2Case Busgirl [place] [facility] ([facility]); Psychiatrist - Dr Konstantin Narvaez 3admitted at adult partial hospitalization program (adult intensive short term out-pt psychiatric program). 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 BRCA1/2 negative,seen by genetics 6follow up at [facility] GI - Dr Richey. Multiple endoscopies, all normal. Other diagnosis is Non-ulcer dyspepsia Social History Social History Type Response Smoking Status Never smoker entered on: 02/07/14 Sex Female
--- OUTSIDE RECORDS SUMMARY | 2024-04-05 15:15 | XMS_ITS | Continuity of Care Document ---
Author Organization [facility] Address [address] [place] [address]- Care Team Providers Care Home Health Care Respiratory Therapist Name Role Phone Mitch Lopez Primary Care Physician [phone] [facility] Date[facility]s): 08/19/20 - 10/01/20 [facility] [address] [place] [address]- Attending Physician: Not on Staff, Attending MD Allergies, Adverse Reactions, Alerts Substance Reaction [...] 06/18/08 Give n Influenza Vaccine (oldterm) 17 10/24/07 Given Pneumococcal Vacc (oldterm) 18 07/18/06 Given Not Given Vaccine Date Status Refusal Reason pneumococcal 23-valent vaccine 10/13/13 Not Given Patient Refuses 1Result Comment: Received at [facility] on [address] 2Admin Note: VIS given 3Admin Note: Administered at [facility] on [address] in [place]. 4Location History: [facility] pharmacy 5Result Comment: [06/27/2014] PT HAD AT [facility] 6Admin Note: VIS GIVEN VIS DATE 01/30/2012 [...] EDT, Compound Start Date: 10/16/18 Status: Ordered [facility] MELATONIN 3 MG TABLET [facility] MEL[facility] 3 [...] Gm, 0 Refills, Maintenance, 08/08/20 15:21:00 EST, [place], [facility], Partial fill upon patient request [...] tablet, 2 Refills, Maintenance, 07/29/20 17:21:00 EST, [facility], Partial fill upon patient [...] for a... Start Date: 07/15/20 Status: Ordered POISE PADS POISE PADS, See Instructions, # 180 each, Refills 5, Tot. Refills 5, Maintenance, For stress incontinence (N93.3), Cystoscopy (Z98.890)., 02/27/19 14:16:26 EDT, Compound Start Date: 02/27/19 Status: Ordered ProAir HFA 90 mcg/inh inhalation aerosol with adapter 2, puffs, Inhalation, Every 6 hours, PRN, # 1 each, Refills 5, Tot. Refills 5, Maintenance, 05/19/20 16:20:00 EDT, Route to Pharmacy Electronically, [id number], [facility]/pharmacy#1972, 160.02, cm, 04/28/20 13:40:00 EDT, Height, 9... Start Date: 05/19/20 Stop Date: 11/15/20 Status: Ordered ProAir HFA 90 mcg/inh inhalation aerosol with adapter 2, puffs, Inhalation, Every 6 hours, PRN, # 1 each, Refills 5, Tot. Refills 5, Maintenance, 06/16/20 18:28:00 EST, Route to Pharmacy Electronically, [id number], [facility]/pharmacy#1972, 160.02, cm, 05/27/20 13:10:00 EDT, Height, [...] 30 capsule, 11 Refills, Maintenance, [facility], 160.02, cm, 10/11/19 15:24:00 EDT, Height, 85.91, [...] Active *Joseph Resendez, Care Coord inator, ICP [phone](Confirmed) Active 1Jantoinette Streeter [facility] 2Case Rand Sewer [facility] ([facility]); Psychiatrist - Dr Konstantin Narvaez 3admitted at adult partial hospitalization program (adult intensive short term out-pt psychiatric program). 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 BRCA1/2 negative,seen by genetics 6follow up at [facility] GI - Dr Richey. Multiple endoscopies, all normal. Other diagnosis is Non-ulcer dyspepsia Social History Social History Type Response Smoking Status Never smoker entered on: 02/07/14 Sex Female
--- OUTSIDE RECORDS SUMMARY | 2024-04-05 15:15 | XMS_ITS | Continuity of Care Document ---
Author Organization [facility] Address [address] [place] [address]- Care Team Providers Care Hardware Test Engineer Name Role Phone Mitch Lopez Primary Care Physician [phone] [facility]s): 07/27/22 - 08/26/22 [facility] [address] [place] [id number] Allergies, Adverse Reactions, Alerts Substance Reaction Severity Status Bactrim bruising Active sulfa drugs Active Compazine unknown Active Immunizations Given and [...] Given Patient Refuses 1Admin Note: Administered at [facility] on [facility] in [place]. 2Location [facility] 3Result Comment: [06/27/2014] PT HAD AT [facility] 4Admin Note: VIS GIVEN VIS DATE 01/30/2012 5Admin Note: flulaval vis given vis date 02/22/2011 6Admin Note: vis given 03/09/10 7Result Comment: Received at [facility] on [facility] 8Admin Note: VIS given 9Admin Note: [...] VIS GIVEN 18Admin Note: VIS GIVEN Medications acetaminophen 500 mg oral tablet 2 tablet = 1,000 mg, By Mouth, Every 8 hours, for pain, # 100 tablet, 0 Refills, Maintenance, 04/15/22 16:54:00 EDT, [facility]/pharmacy #1972, Partial fill upon patient request if the prescription is for aschedule II opioid drug., 160, cm, 03/15/22 14:14:0... Start Date: 04/15/22 Status: Ordered buPROPion 150 mg/24 hours (XL) [...] EVERY DAY Start Date: 05/05/21 Status: Ordered lidocaine 5% topical film 1 patch, Topically, Daily, PRN NEEDED FOR PAIN REMOVE AFTER 12 HOURS, # 30 patch, 1 Refills, Maintenance, 07/07/22 18:54:00 EST, [facility], 30, APPLY 1 PATCH TOPICALLY DAILY NEEDED [...] THE EVENING Start Date: 05/05/21 Status: Ordered nabumetone 500 mg oral tablet 1 tablet, By Mouth, 2 times a day, TAKE WITH FOOD., # 60 tablet, 0 Refills, Maintenance, 06/19/22 12:17:00 EST, [facility] STORE [facility], 160, cm, 06/07/22 9:36:00 EST, Height, 88.2, kg, 11/11/21 9:53:00 EDT,Dry Weight Start Date: 06/19/22 Status: Ordered Premarin 0.3 mg oral tablet 1 tablet = 0.3 mg, By Mouth, Daily, # 30 tablet, 11 Refills, Maintenance, 07/12/22 14:20:00 EST, [facility]/pharmacy #1972, Partial fill upon patient request if the prescription is for a schedule II opioid drug., 160, cm, 07/12/22 13:43:00 EST, Height, 88.2,... Start Date: 07/12/22 Status: Ordered Shingrix intramuscular injection = 0.5 mL, Intramuscular, Once, repeat dose in 2 to 6 months, # 2 each, 0 Refills, Soft Stop, 06/07/22 10:25:00 EST, Powder, [facility]/pharmacy #1972, Partial fill upon patient request if the prescription is for a schedule II opioid drug., 0.5 mL Intramuscul... Start Date: 06/07/22 Status: Ordered Shingrix intramuscular injection = 0.5 mL, Intramuscular, Once, repeat dose in 2 to 6 months, # 2 each, 0 Refills, Soft Stop, 03/15/22 14:32:00 EDT, Powder, [facility]/pharmacy #1972, Partial fill upon patient request if the prescription is for a schedule II opioid drug., 0.5 mL Intramuscul... Start Date: 03/15/22 Status: Ordered Spiriva Respimat 1.25 mcg/inh inhalation aerosol 2 puffs, Inhalation, Daily, # 1 each, 11 Refills, Maintenance, 06/07/22 10:22:00 EST, [facility]/pharmacy #1972, Partial fill upon patient request if the prescription is for a schedule II opioid drug., 160,cm, 06/07/22 9:36:00 EST, Height, 88.2, kg, ... Start Date: 06/07/22 Status: Ordered SUMAtriptan 50 mg oral tablet 1 tablet = 50 mg, By Mouth, Once, PRN Headache, may repeat dose once in 2 hours, # 18 tablet, 1 Refills, Soft Stop, 10/07/20 9:06:00 EST, [facility]/pharmacy #1972, Partial fill upon patient request if the prescription is for a schedule II opioid drug., 160.... Start Date: 10/07/20 Status: Ordered Symbicort 160mcg/4.5mcg Inhaler 2, puffs, Inhalation, 2 times a day, rinse mouth and throat after use, # 10.2 Gm, Refills 11, Tot. Refills 11, Maintenance, 06/07/22 10:22:00 EST, Aerosol, Route to Pharmacy Electronically, [id number], [facility]/pharmacy #1972, 160... Start Date: 06/07/22 Status: Ordered terazosin 2 mg oral capsule 1, capsule, By Mouth, Daily at bedtime, INSTR:CONTINUE TAKING TILL STONE EXPULSION OR TILL 4 WEEKS AND THEN DISCONTINUE., # 30 capsule, Refills 0, Maintenance, 03/28/22 14:40:00 EDT, Route to Pharmacy Electronically, [facility] STORE [id number], 160, cm, 03/15/22... Start Date: 03/28/22 Status: Ordered Tessalon Perles 100 mg oral capsule 1 capsule = 100 mg, By Mouth, 3 times a day, PRN Cough, # 21 capsule, 0 Refills, Maintenance, 06/17/22 17:34:00 EST, [facility]/pharmacy #1972, Partial fill upon patient request if the prescription is for aschedule II opioid drug., 160, cm, 06/07/22 9:36:00... Start Date: 06/17/22 Stop Date: 06/24/22 Status: Ordered traMADol 50 mg oral tablet 1 tablet = 50 mg, By Mouth, 2 times a day, for severe pain, # 60 tablet, 0 Refills, Maintenance, 07/08/22 10:47:00 EST, [facility], Partial fill upon patient request if the prescription is for a schedule II opioid drug., 160, cm, 06/07/22 9:36... Start Date: 07/08/22 Status: Ordered traMADol 50 mg oral tablet 1 tablet = 50 mg, By Mouth, 2 times a day, for severe pain, # 60 tablet, 0 Refills, Maintenance, 06/07/22 10:23:00 EST, [facility], Partial fill upon patient request if the prescription is for a schedule II opioid drug., 160, cm, 06/07/22 9:36... Start Date: 06/07/22 Status: Ordered Ventolin HFA 108 mcg/inh inhalation [...] Refills, Maintenance, 06/16/22 9:46:00 EST, [facility], 160, cm, 06/07/22 9:36:00 EST, Height, 88.2, kg, 11/11/21 9:53:00 EDT, Dry Weight Start Date: 06/16/22 Status: Ordered Vitamin B6 100 mg oral tablet 1 tablet = 100 mg, By Mouth, Daily, 0 Refills, Maintenance, 09/16/21 15:23:00 EST, Partial fill upon patient request if the prescription is for a schedule II opioid drug. Start Date: 09/16/21 Status: Ordered Problem List Condition Confirmation Course [...] Confirmed Active OCD Confirmed Active *Joseph Resendez, Falsework Builder, ICP [phone] Confirmed Active 1Jantoinette Streeter [facility] [place] 2Case Quality Assurance Coordinator [facility] ([facility]); Psychiatrist - Dr Konstantin Narvaez 3admitted at adult partial hospitalization program (adult intensive short term out-pt psychiatric program). 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 BRCA1/2 negative,seen by genetics 6follow up at [facility] GI - Dr Richey. Multiple endoscopies, all normal. Other diagnosis is Non-ulcer dyspepsia Social History Social History Type Response Smoking Status Never smoker entered on: 02/07/14 Sex Female Patient Care team information Care Team Personnel Name: Mitch Lopez Position: S PCO Associate Professional Member Role: PCP Address: Address: [address] [place] [address] [place] [address]- [place] Care Team Related Persons Name: GABINO CASTANEDA Address: home [address] [place] [address] Name: BRE MIRANDA Address: [address] [place] [address] Name: ALEYDA BEE Address: [address] [place] [address] Name: ALEYDA BEE Address: [address] [place] [address] Name: ROMIE PUENTES Address: home [address] [place] [id number]
--- OUTSIDE RECORDS SUMMARY | 2024-04-05 15:15 | XMS_ITS | Continuity of Care Document ---
Author Organization [facility] Address [address] [place] [address]- Care Team Providers Care Ruby On Rails Developer Name Role Phone Mitch Lopez Primary Care Physician [phone] [facility] Date(s): 07/09/19 - 07/19/19 [facility] [address] [place] [address]- [facility] Attending Physician: Jana Mercado Admitting Physician: AdmJana leonardo Referring Physician: AdmtrJana Allergies, Adverse Reactions, Alerts [...] Given Patient Refuses 1Admin Note: Administered at [facility] on [address] in [place]. 2Location History: [facility] pharmacy 3Result Comment: [06/27/2014] PT HAD AT [facility] 4Admin Note: VIS GIVEN VIS [...] 17:26:32, Powder Start Date: 12/12/16 Status: Ordered clonazePAM 1 mg oral tablet 1 tablet = 1 mg, By Mouth, 2 times a day, 0 Refills, Maintenance, 07/03/18 10:31:15 EST Start Date: 07/03/18 Status: Ordered Compression Stockings See Instructions, # 2 pair, Refills 0, Tot. Refills 0, Maintenance, surgical, calf length 20-30 mm Hg, DX edema, R 60.9, 10/16/18 16:21:49 EDT, Compound Start Date: 10/16/18 Status: Ordered gabapentin 300 mg oral capsule 900 mg, 3, capsule, By Mouth, 3 times a day, # 270 capsule, Refills 5, Tot. Refills 5, Maintenance,04/11/19 15:43:33 EDT, Route to Pharmacy Electronically, [id number], [facility]/pharmacy #1972 Start Date: 04/11/19 Stop Date: 10/08/19 Status: Ordered Guaiatussin AC 10 mg-100 mg/5 ml oral syrup 5 mL, By Mouth, Every 4 hours, PRN for cough, # 240 mL, 0 Refills, Maintenance, 06/27/19 4:39:42 EST, Syrup, 5 mL By Mouth Every 4 hours,PRN:for cough Start Date: 06/27/19 Status: Ordered indomethacin 75 mg oral capsule, extended release 1 capsule = 75 mg, By Mouth, 2 times a day, for back pain, # 28 capsule, 0 Refills, Maintenance, 07/04/19 15:34:23 EST, client has motrin allergy noted but has had ibuprofen without problem per med list in the past few months, 158, cm, 07/04/19 13:40:... Start Date: 07/04/19 Stop Date: 07/18/19 Status: Ordered nitroglycerin 0.4 mg sublingual tablet 1 tablet = 0.4 mg, Sublingual, Every 5 minutes, PRN for chest pain, Call ambulance if pain persistsmore than 15 minutes or if chest pain worsens, # 5 tablet, 0 Refills, Maintenance, 01/10/19 12:52:48 EDT, Tablet Start Date: 01/10/19 Status: Ordered omeprazole 20 mg oral enteric coated capsule 1 capsule = 20 mg, By Mouth, Daily, # 30 capsule, 0 Refills, Maintenance, 11/27/18 11:54:22 EDT Start Date: 11/27/18 Status: Ordered POISE PADS POISE PADS, See Instructions, # 180 each, Refills 5, Tot. Refills 5, Maintenance, For stress incontinence (N93.3), Cystoscopy (Z98.890)., 02/27/19 14:16:26 EDT, Compound Start Date: 02/27/19 Status: Ordered ProAir HFA 90 mcg/inh inhalation aerosol with adapter 2, puffs, Inhalation, Every 6 hours, PRN, # 1 each, Refills 5, Tot. Refills 5, Maintenance, 04/11/19 15:43:08 EDT, Route to Pharmacy Electronically, [id number], [facility]/pharmacy#1972 Start Date: 04/11/19 Stop Date: 10/08/19 Status: Ordered Spiriva HandiHaler 18 mcg Inhalation Capsule 1 capsule = 18 mcg, Inhalation, Daily, 0 Refills, Maintenance, 02/27/19 8:10:12 EDT, Capsule Start Date: 02/27/19 Status: Ordered Tylenol Extra Strength 500 mg oral tablet 2 tablet = 1,000 mg, By Mouth, Every 6 hours, PRN as needed for pain, # 100 tablet, 1 Refills, Maintenance, 11/23/18 19:00:59 EDT Start Date: 11/23/18 Status: Ordered verapamil 100 mg oral capsule, extended release 1 capsule = 100 mg, By Mouth, Daily at bedtime, # 90 capsule, 3 Refills, Maintenance, 07/20/18 15:10:20 EST, ER Capsule, Patient lost medication. Please fill this script and cancel old script. Start Date: 07/20/18 Stop Date: 07/15/19 Status: Ordered Vitamin D3 1000 intl units oral tablet 1 tablet = 1,000 International_Units, By Mouth, Daily, # 30 tablet, 11 Refills, Maintenance, 06/28/19 15:26:43 EST, Tablet Start Date: 06/28/19 Status: Ordered Problem List Condition Effective Dates Status Health Status Inform ant Asthma(Confirmed) 07/05/05 Active Bipolar disorder(Confirmed) 1, 2, 3 Active Chest pain(Confirmed) Active Chronic back pain(Confirmed) 07/05/05 Active Gastric nodule(Confirmed) 4 Active H/O ovarian cancer(Confirmed) 5 Active Hiatal hernia(Confirmed) Active Hysterectomy(Confirmed) Active Irritable bowel syndrome(Confirmed) 6 Active Kidney stone(Confirmed) Active Chronic migraine(Confirmed) Active OCD(Confirmed) Active [address] [place] [address] Psychiat[facility] [place] 2Case Cabin Agent [facility] ([facility]); Psychiatrist - Dr Konstantin Narvaez 3admitted at adult partial hospitalization program (adult intensive short term out-pt psychiatric program). 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 BRCA1/2 negative,seen by genetics 6follow up at [facility] GI - Dr Richey. Multiple endoscopies, all normal. Other diagnosis is Non-ulcer dyspepsia Social History Social History Type Response Smoking Status Never smoker entered on: 02/07/14 Sex Female
--- OUTSIDE RECORDS SUMMARY | 2024-04-05 15:15 | XMS_ITS | Continuity of Care Document ---
Author Organization [facility] Address [address] [place] [address]- Care Team Providers Care Medical Record Administrator Name Role Phone Mitch Loepz Primary Care Physician [phone] [facility] - 05/14/23 [facility] [address], [place] [address] Allergies, Adverse Reactions, Alerts Substance Reaction Severity Status trimethoprim Urticaria Active Motrin Breathing problem GI upset Active Bactrim bruising Active prochlorperazine Unknown Active sulfa drugs Breathing problem Active Compazine unknown Active Immunizations Given and [...] Given Pneumococcal Vacc (oldterm) 18 07/18/06 Given 1Admin Note: Administered at [facility] on [facility] in [place]. 2Location History: [facility] pharmacy 3Result Comment: [06/27/2014] PT HAD AT [facility] 4Admin Note: VIS GIVEN VIS DATE 01/30/2012 5Admin Note: flulaval vis given vis date 02/22/2011 6Admin Note: vis given 03/09/10 7Result Comment: Received at [facility] on [facility] 8Admin Note: VIS given 9Admin Note: [...] opioid drug. Start Date: 09/14/22 Status: Ordered [facility] MELATONIN 3 MG TABLET [facility] MELATONIN 3 MG TABLET, 1, tablet, By Mouth, Daily at bedtime, # 30 tablet, 3 Refills, Maintenance, 03/31/23 18:55:00 EDT, 161, cm, 03/29/23 14:07:00 EDT, Height, 85, kg, 09/16/22 6:46:00 EST, DryWeight Start Date: 03/31/23 Status: Ordered diclofenac 1% topical gel 1 application, Topically, 4 times a day, PRN Pain , Moderate, # 100 Gm, 3 Refills, Maintenance, 03/29/23 15:11:00 EDT, Gel, [facility], Partial fill upon patient request if the prescription is for a schedule II opioid drug., 161, cm, 03/29/23... Start Date: 03/29/23 Status: Ordered hydrOXYzine hydrochloride 25 mg oral tablet 1 tablet, By Mouth, 2 times a day, PRN NEEDED FOR ANXIETY, # 60 tablet, 2 Refills, Maintenance, 03/31/23 18:55:00 EDT, [facility] STORE [id number], 161, cm, 03/29/23 14:07:00 EDT, Height, 85, kg, 09/16/22 6:46:00 EST, Dry Weight Start Date: 03/31/23 Status: Ordered lidocaine 5% topical film 1 patch, Topically, Daily, PRN NEEDED FOR PAIN REMOVE AFTER 12 HOURS, # 30 patch, 1 Refills, Maintenance, 03/29/23 15:10:00 EDT, [facility], 30, 1 patch Topically Daily,PRN: NEEDED FOR PAIN REMOVE AFTER 12 HOURS, 161, cm, 03/29/23 14:07:0... Start Date: 03/29/23 Status: Ordered Mapap Arthritis Pain 650 mg oral tablet, extended release 2 tablet = 1,300 mg, By Mouth, Every 8 hours, PRN as needed for pain, # 100 tablet, 1 Refills, Maintenance, 03/30/23 21:21:00 EDT, ER Tablet, [facility], Partial fill upon patient request if the prescription is for a schedule II opioid drug.,... Start Date: 03/30/23 Status: Ordered meloxicam 15 mg oral tablet 1 tablet = 15 mg, By Mouth, Daily, for pain take with food please, # 10 tablet, 0 Refills, Maintenance, 12/30/22 15:43:00 EDT, [facility], Partial fill upon patient request if the prescription is for a schedule II opioid drug., 161, cm, 12/27... Start Date: 12/30/22 Stop Date: 01/09/23 Status: Ordered montelukast 10 mg oral tablet 10 mg, 1, tablet, By Mouth, Daily at bedtime, TAKE 1 TABLET BY MOUTH EVERY DAY IN THE EVENING, # 30tablet, Refills 11, Tot. Refills 11, Maintenance, 10/31/22 16:24:00 EDT, Route to Pharmacy Electronically, [facility], Partial fill upon patien... Start Date: 10/31/22 Status: Ordered nabumetone 500 mg oral tablet 1 tablet, By Mouth, 2 times a day, TAKE WITH FOOD., # 60 tablet, 0 Refills, Maintenance, 03/31/23 18:55:00 EDT, [facility] STORE [id number], 161, cm, 03/29/23 14:07:00 EDT, Height, 85, kg, 09/16/22 6:46:00 EST, Dry Weight Start Date: 03/31/23 Status: Ordered oxyCODONE 5 mg oral capsule [...] 19:11:00 EDT, Aerosol, Route to Pharmacy Electronically, [id number], [facility]/pharmacy #1972, 161... Start Date: 11/24/22 Status: Ordered traMADol 50 mg oral tablet [...] fewer, # 60 tablet, 0 Refills, Maintenance, 03/31/23 18:49:00 EDT, [facility], Partial fill upon patient request if the prescription is for a sched... Start Date: 03/31/23 Status: Ordered Ventolin HFA 108 mcg/inh inhalation [...] release 1 capsule, By Mouth, Daily, # 90 capsule, 1 Refills, Maintenance, 03/22/23 11:50:00 EDT, [facility], 161, cm, 03/20/23 17:26:00 EDT, Height, 85, kg, 09/16/22 6:46:00 EST, Dry Weight Start Date: 03/22/23 Status: Ordered ZyrTEC 10 mg oral tablet [...] Confirmed Active OCD Confirmed Active *Joseph Resendez, Instructor Decorating, ICP [phone] Confirmed Active 1Jantoinette Streeter [facility] [place] 2Case Electronic Transaction Implementer [place] ([facility]); Psychiatrist - Dr Konstantin Narvaez 3admitted at adult partial hospitalization program (adult intensive short term out-pt psychiatric program). 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 BRCA1/2 negative,seen by genetics 6follow up at [facility] GI - Dr Richey. Multiple endoscopies, all normal. Other diagnosis is Non-ulcer dyspepsia Social History Social History Type Response Smoking Status Never smoker entered on: 02/07/14 Sex Female Patient Care team information Care Team Personnel Name: Mitch Lopez Position: [facility] PCO Associate Professional Member Role: PCP Address: Address: [address] [place] [address] [place] [address]- Care Team Related Persons Name: GABINO CASTANEDA Address: home [address] [place] [address] Name: JERROD BEAUCHAMP Address: home [place], [place] Name: BRE MIRANDA Address: home [address] [place] [address] Name: ALEYDA BEE Address: home [address] [place] [address] Name: ALEYDA BEE Address: home [address] [place] [address] Name: ROMIE PUENTES Address: home [address] [place] [address]
--- OUTSIDE RECORDS SUMMARY | 2024-04-05 15:15 | XMS_ITS | Continuity of Care Document ---
Author Organization [facility] Address [address] [place] [address]- Care Team Providers Care Bark Spudder Name Role Phone Mitch Lopez Primary Care Physician [facility] 10[facility]21 - 11/10/21 [facility] [address] [place] [address]- Allergies, Adverse Reactions, Alerts Substance Reaction Severity [...] Given Patient Refuses 1Result Comment: Received at [facility] on [address] 2Admin Note: VIS given 3Admin Note: Administered at [facility] on [address] in [place]. 4Location History: [facility] pharmacy 5Result Comment: [06/27/2014] PT HAD AT [facility] 6Admin Note: VIS GIVEN VIS [...] VIS GIVEN 18Admin Note: VIS GIVEN Medications baclofen 10 mg oral tablet 10 mg, 1, tablet, By Mouth, 3 times a day, for pain, # 15 tablet, Refills 0, Tot. Refills 0, Maintenance, 10/14/21 18:29:00 EDT, Route to Pharmacy Electronically, [facility]/pharmacy #1972, Partial fill upon patient request if the prescription is for a sched... Start Date: 10/14/21 Stop Date: 10/19/21 Status: Ordered buPROPion 150 mg/24 hours (XL) oral tablet, extended release TAKE 1 TABLET BY MOUTH EVERY DAY Start Date: 05/05/21 Status: Ordered [facility] MELATONIN 3 MG TABLET [facility] MELATONIN 3 MG TABLET, 1, tablet, By [...] Status: Ordered gabapentin 600 mg oral tablet See Instructions, TAKE 2 TABS BY MOUTH 2 TIMES A DAY, # 120 tablet, 2 Refills, [facility] 96386, 160.02, cm, 07/05/21 10:30:00 EST, Height, 85, kg, 03/11/21 17:07:00 EDT, Dry Weight Start Date: 08/22/21 Status: Ordered lidocaine 4% topical film 1 patch, Topically, 2 times a day, for 7 days, # 14 patch, 0 Refills, Acute 11/15/21 19:30:00 EDT, 11/08/21 19:30:00 EDT, Film, [facility]/pharmacy #1972, Partial fill upon patient request if the prescription is for a schedule II opioid drug., 1 patch Topica... Start Date: 11/08/21 Stop Date: 11/15/21 Status: Ordered meloxicam 7.5 mg oral tablet 1 tablet, By Mouth, Daily, FOR ARTHRITIS PAIN. TAKE WITH FOOD, # 30 tablet, 1 Refills, [facility] 13879, 160.02, cm, 09/16/21 14:31:00 EST, Height, 85, kg, 03/11/21 17:07:00 EDT, Dry Weight Start Date: 09/30/21 Status: Ordered montelukast 10 mg oral tablet TAKE 1 TABLET BY MOUTH EVERY DAY IN THE EVENING Start Date: 05/05/21 Status: Ordered ProAir HFA 90 mcg/inh inhalation aerosol with adapter 2, puffs, Inhalation, Every 6 hours, PRN, # 1 each, Refills 11, Tot. Refills 11, Maintenance, 09/07/21 11:12:00 EST, Route to Pharmacy Electronically, [id number], [facility]/pharmacy #1972, 160.02, cm, 09/07/21 10:18:00 EST, Height,... Start Date: 09/07/21 Stop Date: 09/02/22 Status: Ordered Spiriva Respimat 1.25 mcg/inh inhalation aerosol 2 PUFFS INHALATION ONCE A DAY 30 DAYS Start Date: 05/05/21 Status: Ordered Spiriva Respimat 1.25 mcg/inh inhalation aerosol 2 puffs, Inhalation, Daily, # 1 each, 11 Refills, Maintenance, 09/07/21 11:12:00 EST, [facility]/pharmacy #1972, Partial fill upon patient request if the prescription is for a schedule II opioid drug., 160.02, cm, 09/07/21 10:18:00 EST, Height, 85, kg, 03/11... Start Date: 09/07/21 Status: Ordered stop duloxetine stop duloxetine, See [...] 1 Refills, Soft Stop, 10/07/20 9:06:00 EST, [facility]/pharmacy #1972, Partial fill upon patient request if the prescription is for a schedule II opioid drug., 160.... Start Date: 10/07/20 Status: Ordered Symbicort 160mcg/4.5mcg Inhaler INHALE 2 PUFFS TWICE A DAY Start Date: 05/05/21 Status: Ordered Symbicort 160mcg/4.5mcg Inhaler 2, puffs, Inhalation, 2 times a day, rinse mouth and throat after use, # 10.2 Gm, Refills 11, Tot. Refills 11, Maintenance, 09/08/21 17:59:00 EST, Aerosol, Route to Pharmacy Electronically, [id number], [facility]/pharmacy #1972, 160... Start Date: 09/08/21 Status: Ordered Tessalon Perles 100 mg oral capsule 1 capsule = 100 mg, By Mouth, 3 times a day, PRN Cough, # 20 capsule, 0 Refills, Maintenance, 09/16/21 15:25:00 EST, [facility]/pharmacy #1972, Partial fill upon patient request if the prescription is for aschedule II opioid drug., 160.02, cm, 09/16/21 14:3... 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 BRCA1/2 negative,seen by genetics 6follow up at [facility] GI - Dr Richey. Multiple endoscopies, all normal. Other diagnosis is Non-ulcer dyspepsia Social History Social History Type Response Smoking Status Never smoker entered on: 02/07/14 Sex Female
--- OUTSIDE RECORDS SUMMARY | 2024-04-05 15:15 | XMS_ITS | Continuity of Care Document ---
Author Organization [facility] Address [address] [place] [address]- Care Team Providers Care Branch Rental Manager Name Role Phone Mitch Lopez Primary Care Physician [phone] [facility] 03[facility]12[facility]20 - 04/29/20 [facility] [address] [place] [address]- [facility] Attending Physician: Not on Staff, Attending MD [...] Given Patient Refuses 1Admin Note: Administered at [facility] on [address] in [place]. 2Location History: [facility] pharmacy 3Result Comment: [06/27/2014] PT HAD AT [facility] 4Admin Note: VIS GIVEN [...] 13:54:37, Compound Start Date: 09/07/17 Status: Ordered acetaminophen-hydrocodone 300 mg-5 mg oral tablet 1 tablet, By Mouth, Every 6 hours, PRN as needed for pain, # 12 tablet, 0 Refills, Acute 05/02/20 9:46:00 EDT, 04/25/20 9:45:00 EDT, Tablet, Partial fill upon patient request Start Date: 04/25/20 Stop Date: 05/02/20 Status: Ordered Blood Pressure Monitor See Instructions, [...] EDT, Compound Start Date: 10/16/18 Status: Ordered cyclobenzaprine 10 mg oral tablet See Instructions, PRN, 1/2 or 1 tablet By Mouth 3 times a day prn for pain or muscle spasm, # 90 tablet, Refills 0, Tot. Refills 0, Acute 05/06/20 9:45:00 EDT, spasm, 04/25/20 9:45:00 EDT, Instructions Replace Required Details, Print Requisition Start Date: 04/25/20 Stop Date: 05/06/20 Status: Ordered Estrace Vaginal Cream 0.1 mg/g = 1 Gm, Vaginally, Daily at bedtime, # 42.5 Gm, 2 Refills, Maintenance, 03/04/20 12:12:00 EDT, [facility], 160.02, cm, 03/04/20 11:50:00 EDT, Height, [...] EDT, Compound Start Date: 02/27/19 Status: Ordered predniSONE 20 mg oral tablet 2 tablet = 40 mg, By Mouth, Daily, for 7 days, for pain and inflammation with food, # 14 tablet, 0 Refills, Acute 05/05/20 14:03:00 EDT, 04/28/20 14:03:00 EDT, [facility], 160.02, cm, 04/28/20 13:40:00 EDT, Height, 92.3, kg, 04/17/20 15:01:00... Start Date: 04/28/20 Stop Date: 05/05/20 Status: Ordered ProAir HFA 90 mcg/inh inhalation aerosol with adapter 2, puffs, Inhalation, Every 6 hours, PRN, # 1 each, Refills 5, Tot. Refills 5, Maintenance, 03/12/20 7:19:00 EDT, Route to Pharmacy Electronically, [id number], [facility]/pharmacy #1972, 160.02, cm, 03/04/20 11:50:00 EDT, Height, [...] DAYS, # 30 capsule, 11 Refills, Maintenance, [facility] STORE 51646, 160.02, cm, 10/11/19 15:24:00 EDT, Height, 85.91, kg, 08/01/19 12:13:00 EST, Dry Weight Start Date: 11/04/19 Status: Ordered verapamil 100 mg oral capsule, extended release 1 capsule = 100 mg, By Mouth, Daily at bedtime, # 90 capsule, 1 Refills, Maintenance, 08/01/19 15:54:00 EST, ER Capsule, [facility]/pharmacy #1972, Patient lost medication. Please fill this [...] Active *Joseph Resendez, Care Coord inator, ICP [phone](Confirmed) Active 1Jantoinette Streeter [facility] [place] 2Case Camp Housekeeper [place] ([facility]); Psychiatrist - Dr Konstantin Narvaez 3admitted at adult partial hospitalization program (adult intensive short term out-pt psychiatric program). 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 BRCA1/2 negative,seen by genetics 6follow up at [facility] GI - Dr Richey. Multiple endoscopies, all normal. Other diagnosis is Non-ulcer dyspepsia Social History Social History Type Response Smoking Status Never smoker entered on: 02/07/14 Sex Female
--- OUTSIDE RECORDS SUMMARY | 2024-04-05 15:15 | XMS_ITS | Continuity of Care Document ---
Author Organization [facility] Address [address] [place] [address]- Care Team Providers Care Fence Supervisor Name Role Phone Mitch Lopez Primary Care Physician [facility] 10[facility]07[facility]20 - 11/20/20 [facility] [address] [place] [address]- Attending Physician: Mitch Lopez Admitting Physician: Mitch Lopez Allergies, Adverse Reactions, Alerts [...] Given Patient Refuses 1Result Comment: Received at [facility] on [address] 2Admin Note: VIS given 3Admin Note: Administered at [facility] on [address] in [place]. 4Location History: [facility] 5Result Comment: [06/27/2014] PT HAD AT [facility] 6Admin Note: VIS GIVEN VIS DATE [...] EDT, Compound Start Date: 10/16/18 Status: Ordered [facility] MELATONIN 3 MG TABLET [facility] MELATONIN 3 MG TABLET, 1, tablet, By Mouth, Daily at bedtime, # 30 tablet, 1 Refills, Maintenance, FOR SLEEP., 09/09/20 8:42:00 EST, 160.02, cm, 07/29/20 16:36:00 EST, Height, 92.3, kg, 07/24/20 13:24:00 EST, Dry Weight Start Date: 09/09/20 Status: Ordered Estrace Vaginal Cream 0.1 mg/g = 1 Gm, Vaginally, Every Monday and , # 42.5 Gm, 2 Refills, Maintenance, 09/08/20 14:57:00EST, [facility]/pharmacy #1972, 160.02, cm, 07/29/20 16:36:00 EST, Height, 92.3, kg, 07/24/20 13:24:00 EST, Dry Weight Start Date: 09/08/20 Status: Ordered Flonase 50 mcg/inh nasal spray 1 sprays, Nares, Both, 2 times a day, # 16 Gm, 0 Refills, Maintenance, 08/08/20 15:21:00 EST, [place], [facility]/pharmacy #1972, Partial fill upon patient request [...] tablet, 2 Refills, Maintenance, 11/06/20 17:02:00 EDT, [facility]/pharmacy #1972, Partial fill upon patient request if the prescription is for a schedule II opioid drug.... Start Date: 11/06/20 Status: Ordered ibuprofen 600 mg oral tablet 600 mg, 1, tablet, By Mouth, 4 times a day, PRN, # 40 tablet, Refills 0, Tot. Refills 0, Maintenance, for pain, 07/15/20 20:01:00 EST, Route to Pharmacy Electronically, [facility]/pharmacy #1972, Partial fill upon patient request if the prescription is for a... Start Date: 07/15/20 Status: Ordered melatonin 3 mg oral tablet 1 tablet = 3 mg, By Mouth, Daily at bedtime, # 30 tablet, 2 Refills, Maintenance, 10/07/20 9:05:00 EST, [facility]/pharmacy #1972, Partial fill upon patient request [...] 05/19/20 16:20:00 EDT, Route to Pharmacy Electronically, [id number], [facility]/pharmacy#1972, 160.02, cm, 04/28/20 13:40:00 EDT, Height, 9... Start Date: 05/19/20 Stop Date: 11/15/20 Status: Ordered ProAir HFA 90 mcg/inh inhalation aerosol with adapter 2, puffs, Inhalation, Every 6 hours, PRN, # 1 each, Refills 5, Tot. Refills 5, Maintenance, 06/16/20 18:28:00 EST, Route to Pharmacy Electronically, [id number], [facility]/pharmacy#1972, 160.02, cm, 05/27/20 13:10:00 EDT, Height, [...] Chronic migraine(Confirmed) Active OCD(Confirmed) Active *Joseph Resendez, [place] Coord inator, [facility] [phone](Confirmed) Active Dyan Streeter [facility] [place] 2Case Diesel Trailer Mechanic [place] ([facility]); Psychiatrist - Dr Konstantin Narvaez 3admitted at adult partial hospitalization program (adult intensive short term out-pt psychiatric program). 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 BRCA1/2 negative,seen by genetics 6follow up at [facility] GI - Dr Richey. Multiple endoscopies, all normal. Other diagnosis is Non-ulcer dyspepsia Social History Social History Type Response Smoking Status Never smoker entered on: 02/07/14 Sex Female
--- OUTSIDE RECORDS SUMMARY | 2024-04-05 15:15 | XMS_ITS | Continuity of Care Document ---
Author Organization [facility] Address [address] [place] [address]- Care Team Providers Care Lay Out Former Name Role Phone Mitch Lopez Primary Care Physician [facility] 09[facility]21 - 01/19/[address] [address] Discharge Disposition: A-D/C Home Attending Physician: Mitch Lopez Admitting Physician: Mitch Lopez Referring Physician: Deysi Gomez DO Allergies, Adverse Reactions, Alerts Substance Reaction Severity Status sulfa drugs Active Bactrim bruising Active Compazine unknown Active [...] Given Patient Refuses 1Admin Note: Administered at [facility] on [facility] in [place]. 2Location History: [facility] pharmacy 3Result Comment: [06/27/2014] PT HAD AT [facility] 4Admin Note: VIS GIVEN VIS DATE 01/30/2012 5Admin Note: flulaval vis given vis date 02/22/2011 6Admin Note: vis given 03/09/10 7Result Comment: Received at [facility] on [facility] 8Admin Note: VIS given 9Admin Note: [...] a day, # 120 tablet, 2 Refills, [facility] STORE 47311, 160, cm, 11/22/21 10:23:00 EDT, Height, 88.2, [...] THE EVENING Start Date: 05/05/21 Status: Ordered phenazopyridine 100 mg oral tablet 100 mg, 1, tablet, By Mouth, 3 times a day, for 7 days, # 21 tablet, Refills 0, Tot. Refills 0, Acute 01/23/22 16:20:00 EDT, 01/16/22 16:20:00 EDT, Route to Pharmacy Electronically, [facility], Partial fill upon patient request if the prescrip... Start Date: 01/16/22 Stop Date: 01/23/22 Status: Ordered ProAir HFA 90 mcg/inh inhalation aerosol with adapter 2, puffs, Inhalation, Every 6 hours, PRN, # 1 each, Refills 11, Tot. Refills 11, Maintenance, 01/03/22 11:58:00 EDT, Route to Pharmacy Electronically, [id number], [facility], 160, cm, 01/03/22 11:03:00 EDT, Height, [...] 11:56:00 EDT, Aerosol, Route to Pharmacy Electronically, [id number], [facility], 160... Start Date: 01/03/22 Status: [...] # 30 capsule, 5 Refills, [facility], 160.02, cm, 07/05/21 10:30:00EST, Height, 85, kg, [...] Active *Joseph Resendez, Care Coord avril, ICP [phone](Confirmed) Active 1Jantoinette Streeter [facility] - [facility] 2Case Sales Representative [facility] [place] ([facility]); Psychiatrist - Dr Konstantin Narvaez 3admitted at adult partial hospitalization program (adult intensive short term out-pt psychiatric program). 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 BRCA1/2 negative,seen by genetics 6follow up at [facility] GI - Dr Richey. Multiple endoscopies, all normal. Other diagnosis is Non-ulcer dyspepsia Social History Social History Type Response Smoking Status Never smoker entered on: 02/07/14 Sex Female
--- OUTSIDE RECORDS SUMMARY | 2024-04-05 15:15 | XMS_ITS | Continuity of Care Document ---
Author Organization [facility] Address [address] [place] [address], [address] [place] [address]- Care Team Providers Care Oil Well Driller Name Role Phone Mitch Lopez Primary Care Physician [phone] [facility] 03[facility]21 - 04/10/21 [facility] [address] [place] [address] Drive, [address] [place] [address]- Allergies, Adverse Reactions, Alerts Substance Reaction Severity [...] Given Patient Refuses 1Result Comment: Received at [facility] on [address] 2Admin Note: VIS given 3Admin Note: Administered at [facility] on [address] in [place]. 4Location History: [facility] pharmacy 5Result Comment: [06/27/2014] PT HAD AT [facility] 6Admin Note: VIS GIVEN VIS DATE 01/30/2012 [...] OF BREATH, # 8.5 Unknown, 5 Refills, [facility], 25, INHALE 2 PUFFS EVERY 6 HOURS NEEDED FOR WHEEZING/SHORTNESSOF BREATH, 160.02, cm, 03/30/21 15:41:00 EDT, Heigh... Start Date: 03/30/21 Status: Ordered cetirizine 10 mg oral tablet 1 tablet = 10 mg, By Mouth, Daily, # 30 tablet, 0 Refills, Maintenance, 12/04/20 17:24:00 EDT, Tablet, [facility]/pharmacy #1972, Partial fill upon patient request if the prescription is for a schedule II opioid drug., 160.02, cm, 12/04/20 17:05:00 EDT, He[place]... Start Date: 12/04/20 Status: Ordered Colace sodium 100 mg oral capsule 100 mg, 1, capsule, By Mouth, 2 times a day, PRN, # 20 capsule, Refills 0, Tot. Refills 0, Maintenance, for constipation, 02/07/21 10:55:00 EDT, Route to Pharmacy Electronically, [facility]/pharmacy #1972, Partial fill upon patient request if [...] 0 Refills, Maintenance, 02/07/21 10:54:00 EDT, Gel, [facility]/pharmacy #1972, Partial fill upon patient request if the prescription is for a schedule II opioid drug., 160.02, cm, 02/04/21 15:57:00 EDT, Heig... Start Date: 02/07/21 Status: Ordered diclofenac 1% topical gel = 4 Gm, Topically, 4 times a day, PRN knee pain, Apply to painful knee, # 100 Gm, 0 Refills, Maintenance, 02/16/21 17:40:00 EDT, Gel, [facility]/pharmacy #1972, Partial fill upon patient request if [...] Gm, 0 Refills, Maintenance, 08/08/20 15:21:00 EST, [place], [facility], Partial fill upon patient request [...] opioid drug., 160.02, cm, 10/07/20 8:15:00 EST, Jarett... Start Date: 10/07/20 Status: Ordered naproxen 500 mg oral tablet 1 tablet = 500 mg, By Mouth, 2 times a day, # 28 tablet, 0 Refills, Maintenance, 03/08/21 18:54:00 EDT, Tablet, [facility]/pharmacy #1972, Partial fill upon patient request if the prescription is for a schedule II opioid drug., 160.02, cm, 03/08/21 18:21:00... Start Date: 03/08/21 Stop Date: 03/22/21 Status: Ordered ProAir HFA 90 mcg/inh inhalation aerosol with adapter 2, puffs, Inhalation, Every 6 hours, PRN, # 1 each, Refills 5, Tot. Refills 5, Maintenance, 05/19/20 16:20:00 EDT, Route to Pharmacy Electronically, [id number], [facility]/pharmacy#1972, 160.02, cm, 04/28/20 13:40:00 EDT, Height, 9... Start Date: 05/19/20 Stop Date: 11/15/20 Status: Ordered ProAir HFA 90 mcg/inh inhalation aerosol with adapter 2, puffs, Inhalation, Every 6 hours, PRN, # 1 each, Refills 5, Tot. Refills 5, Maintenance, 06/16/20 18:28:00 EST, Route to Pharmacy Electronically, [id number], [facility]/pharmacy#1972, 160.02, cm, 05/27/20 13:10:00 EDT, Height, 9... [...] Refills, Maintenance, 02/04/21 9:28:00 EDT, [facility], 160.02, cm, 01/26/21 9:12:00 EDT, Height, 88.8, [...] Active *Joseph Resendez, Care Coord inator, ICP [phone](Confirmed) Active 1Jantoinette Streeter [facility] [place] [place] 2Case Sample Tailor Parish Proctor ([facility]); Psychiatrist [...] BRCA1/2 negative,seen by genetics 6follow up at [facility] GI - Dr Richey. Multiple endoscopies, all normal. Other diagnosis is Non-ulcer dyspepsia Social History Social History Type Response Smoking Status Never smoker entered on: 02/07/14 Sex Female
--- OUTSIDE RECORDS SUMMARY | 2024-04-05 15:15 | XMS_ITS | Continuity of Care Document ---
Author Organization [facility] Address [address] [place] [address], [address] [place] [address]- Care Team Providers Care Video Specialist Name Role Phone Mitch Lopez Primary Care Physician [phone] [facility]counter [facility] Date[facility]s): 02/15/22 - 03/17/22 [facility] [address] [place] [address] Drive, [address] [place], [place] [address] Allergies, Adverse Reactions, Alerts Substance Reaction Severity [...] Patient Refuses 1Admin Note: Administered at [facility] on [facility] in [place]. 2Location History: [facility] pharmacy 3Result Comment: [06/27/2014] PT HAD AT [facility] 4Admin Note: VIS GIVEN VIS DATE 01/30/2012 5Admin Note: flulaval vis given vis date 02/22/2011 6Admin Note: vis given 03/09/10 7Result Comment: Received at [facility] on [facility] 8Admin Note: VIS given 9Admin Note: 2nd [...] capsules/day, # 60 capsule, 0 Refills, Maintenance, 05/10/22 15:30:00 EDT, Capsule, [facility], Partial fill [...] EVERY DAY Start Date: 05/05/21 Status: Ordered life line via cellular /wrist [...] IIopioid drug., 160, cm, 01/03/22 11:03:00 EDT, [place]... Start Date: 01/03/22 Status: Ordered meloxicam 15 mg oral tablet See Instructions, TAKE 1 TABLET BY MOUTH DAILY NEEDED FOR PAIN, # 30 tablet, 0 Refills, [facility], 160, cm, 01/20/22 15:38:00 EDT, Height, 88.2, kg, 11/11/21 9:53:00 EDT, Dry Weight Start Date: 02/07/22 Status: Ordered meloxicam 7.5 mg oral tablet 1 tablet, By Mouth, Daily, PRN NEEDED FOR PAIN WITH FOOD, # 30 tablet, 1 Refills, [facility], 160, cm, 01/20/22 15:38:00 EDT, Height, 88.2, kg, 11/11/21 9:53:00 EDT, Dry Weight Start Date: 02/01/22 Status: Ordered montelukast 10 mg oral tablet TAKE 1 TABLET BY MOUTH EVERY DAY IN THE EVENING Start Date: 05/05/21 Status: Ordered Premarin 0.3 mg oral tablet 1 tablet = 0.3 mg, By Mouth, Daily, # 30 tablet, 0 Refills, Maintenance, 02/21/22 14:00:00 EDT, [facility], Partial fill upon patient request if the prescription is for a schedule II opioid drug., 160, cm, 02/21/22 13:34:00 EDT, Height, 88.2,... Start Date: 02/21/22 Status: Ordered ProAir HFA 90 mcg/inh inhalation aerosol with adapter 2, puffs, Inhalation, Every 6 hours, PRN, # 1 each, Refills 11, Tot. Refills 11, Maintenance, 01/03/22 11:58:00 EDT, Route to Pharmacy Electronically, [id number], [facility], 160, cm, 01/03/22 11:03:00 EDT, Height, 88... Start Date: 01/03/22 Stop Date: 12/29/22 Status: Ordered Shingrix intramuscular injection = 0.5 mL, Intramuscular, Once, repeat dose in 2 to 6 months, # 2 each, 0 Refills, Soft Stop, 03/15/22 14:32:00 EDT, Powder, [facility], Partial fill upon patient [...] 160,cm, 01/03/22 11:03:00 EDT, Height, 88.2, kg, 11/11/... Start Date: 01/03/22 Status: Ordered SUMAtriptan 50 mg oral tablet 1 tablet = 50 mg, By Mouth, Once, PRN Headache, may repeat dose once in 2 hours, # 18 tablet, 1 Refills, Soft Stop, 10/07/20 9:06:00 EST, [facility]/pharmacy #1972, Partial fill upon patient request if the prescription is for a schedule II opioid drug., 160.... Start Date: 10/07/20 Status: Ordered Symbicort 160mcg/4.5mcg Inhaler 2, puffs, Inhalation, 2 times a day, rinse mouth and throat after use, # 10.2 Gm, Refills 11, Tot. Refills 11, Maintenance, 01/03/22 11:56:00 EDT, Aerosol, Route to Pharmacy Electronically, [id number], [facility], 160... Start Date: 01/03/22 Status: [...] Mouth, Daily, # 30 capsule, 5 Refills, [facility] ST[facility] 10[facility], 160.02, cm, 07/05/21 10:30:00EST, Height, 85, kg, [...] Active *Joseph Resendez, Care Coord inator, ICP [phone](Confirmed) Active 1Jantoinette Streeter [facility] [place] 2Case Application Project Leader Parish Esthela ([facility]); Psychiatrist - Dr Konstantin Narvaez 3admitted at adult partial hospitalization program (adult intensive short term out-pt psychiatric program). 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 BRCA1/2 negative,seen by genetics 6follow up at [facility] GI - Dr Richey. Multiple endoscopies, all normal. Other diagnosis is Non-ulcer dyspepsia Social History Social History Type Response Smoking Status Never smoker entered on: 02/07/14 Sex Female
--- OUTSIDE RECORDS SUMMARY | 2024-04-05 15:15 | XMS_ITS | Continuity of Care Document ---
Author Organization [facility] Address [address] [place] [address]- Care Team Providers Care City Alderman Name Role Phone Mitch Lopez Primary Care Physician [phone] Encounter [facility] Date(s): 03/23/21 - 04/22/21 [facility] [address] [place], [place] [address] Attending Physician: Jana Mercado Admitting Physician: Jana Mercado Referring Physician: AdmJana leonardo Allergies, Adverse Reactions, Alerts Substance Reaction Severity [...] [facility] on [facility] 2Admin Note: VIS given 3Admin Note: Administered at [facility] on [facility] [address] in [place]. 4Location History: [facility] pharmacy 5Result Comment: [06/27/2014] [facility] 6Admin Note: VIS GIVEN VIS [...] 1 each, 0 Refills, 04/14/21 19:19:00 EDT, [facility]/pharmacy #1972, INHALE 2 PUFFS EVERY 6 HOURS NEEDED FOR WHEEZING/SHORTNESS OF BREATH, 160.02, cm, 04/14/21 14... Start Date: 04/14/21 Status: Ordered cetirizine 10 mg oral tablet 1 tablet = 10 mg, By Mouth, Daily, # 30 tablet, 0 Refills, Maintenance, 12/04/20 17:24:00 EDT, Tablet, [facility]/pharmacy #1972, [...] 02/07/21 10:55:00 EDT, Route to Pharmacy Electronically, [facility] 0 Refills, Maintenance, 02/07/21 10:54:00 EDT, Gel, [facility]/pharmacy #1972, Partial fill upon patient request if the prescription is for a schedule II opioid drug., 160.02, cm, 02/04/21 15:57:00 EDT, Heig... Start Date: 02/07/21 Status: Ordered diclofenac 1% topical gel = 4 Gm, Topically, 4 times a day, PRN knee pain, Apply to painful knee, # 100 Gm, 0 Refills, Maintenance, 02/16/21 17:40:00 EDT, Gel, [facility], Partial fill upon [...] Gm, 0 Refills, Maintenance, 08/08/20 15:21:00 EST, [place], [facility], Partial fill upon patient request [...] II opioid drug., 160.02, cm, 10/07/20 8:15:00 ESTJarett... Start Date: 10/07/20 Status: Ordered naproxen 500 mg oral tablet 1 tablet = 500 mg, By Mouth, 2 times a day, # 28 tablet, 0 Refills, Maintenance, 03/08/21 18:54:00 EDT, Tablet, [facility]/pharmacy #1972, [...] 05/19/20 16:20:00 EDT, Route to Pharmacy Electronically, [id number], [facility]/pharmacy#1972, 160.02, cm, 04/28/20 13:40:00 EDT, Height, 9... Start Date: 05/19/20 Stop Date: 11/15/20 Status: Ordered ProAir HFA 90 mcg/inh inhalation aerosol with adapter 2, puffs, Inhalation, Every 6 hours, PRN, # 1 each, Refills 5, Tot. Refills 5, Maintenance, 06/16/20 18:28:00 EST, Route to Pharmacy Electronically, [id number], [facility]/pharmacy#1972, 160.02, [...] Refills, Maintenance, 02/04/21 9:28:00 EDT, [facility], 160.02, cm, 01/26/21 9:12:00 EDT, Height, 88.8, [...] Active *Joseph Resendez, Care Coord inator, ICP [phone](Confirmed) Active 1Jantoinette Streeter [facility] [place] 2Case Ophthalmic Medical Technician Parish Esthela ([facility]); Psychiatrist - Dr Konstantin Narvaez 3admitted at adult partial hospitalization program (adult intensive short term out-pt psychiatric program). 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 BRCA1/2 negative,seen by genetics 6follow up at [facility] GI - Dr Richey. Multiple endoscopies, all normal. Other diagnosis is Non-ulcer dyspepsia Social History Social History Type Response Smoking Status Never smoker entered on: 02/07/14 Sex Female
--- OUTSIDE RECORDS SUMMARY | 2024-04-05 15:15 | XMS_ITS | Continuity of Care Document ---
Author Organization [facility] Address [address] [place] [address]- Care Team Providers Care Developer Programmer Name Role Phone Mitch Lopez Primary Care Physician [facility] Date[facility]s): 01/22/24 - 02/22/24 [facility] [address] [facility] [place], [place] [phone] Attending Physician: Not on Staff, Attending MD Allergies, Adverse Reactions, Alerts Substance Reaction Severity Status trimethoprim Urticaria Active prochlorperazine Unknown Active sulfa drugs Breathing problem Active Bactrim bruising [...] 08/11/21 R ecorded SARS-CoV-2 (COVID-19) mRNA-1273 vaccine 4/2/21 R ecorded SARS-CoV-2 (COVID-19) mRNA-1273 vaccine 10/02/20 [...] 18 07/18/06 Given 1Admin Note: Administered at [facility] on [facility] in [place]. 2Location History: [facility] pharmacy 3Result Comment: [06/27/2014] PT HAD AT [facility] 4Admin Note: VIS GIVEN VIS DATE 01/30/2012 5Admin Note: flulaval vis given vis date 02/22/2011 6Admin Note: vis given 03/09/10 7Result Comment: Received at [facility] on [facility] 8Admin Note: VIS given 9Admin [...] GIVEN 18Admin Note: VIS GIVEN Medications Albuterol (Eqv-Ventolin HFA) 90 mcg/inh inhalation aerosol 2 puffs, Inhalation, Every 6 hours, # 1 each, 11 Refills, Maintenance, 10/23/23 12:15:00 EDT, [facility]/pharmacy #1972, Partial fill upon patient request if the prescription is for a schedule II opioid drug., 2 puffs Inhalation Every 6 hours, 161, cm, 10/22... Start Date: 10/23/23 Status: Ordered aspirin 81 mg oral capsule 1 capsule = 81 mg, By Mouth, Daily in AM, 0 Refills, Maintenance, 09/14/22 9:38:00 EST, Partial fill upon patient request if the prescription is for a schedule II opioid drug. Start Date: 09/14/22 Status: Ordered [facility] MELATONIN 3 MG TABLET [facility] MELATONIN 3 MG TABLET, 1, tablet, By Mouth, Daily at bedtime, # 30 tablet, 3 Refills, Maintenance, 03/31/23 18:55:00 EDT, 161, cm, 03/29/23 14:07:00 EDT, Height, 85, kg, 09/16/22 6:46:00 EST, DryWeight Start Date: 03/31/23 Status: Ordered diclofenac 1% topical gel 1 application, Topically, 4 times a day, PRN NEEDED, MODERATE PAIN., # 100 Gm, 3 Refills, Maintenance, 08/28/23 14:07:00 EST, [facility], 25, 1 application Topically 4 times a day,PRN: NEEDED,Instr:MODERATE PAIN., 161, cm, 08/16/23 11:00:... Start Date: 08/28/23 Status: Ordered hydrOXYzine hydrochloride 25 mg oral tablet 1 tablet, By Mouth, 2 times a day, PRN NEEDED FOR ANXIETY, # 180 tablet, 0 Refills, Maintenance,01/19/24 9:05:00 EDT, [facility] STORE 54[facility], 161, cm, 01/16/24 16:04:00 EDT, Height, 82.1, kg, 08/05/23 8:10:00 EST, Dry Weight Start Date: 01/19/24 Status: Ordered Lidoderm 5% film 1 patch, Topically, Daily, remove patches after 12 hours pt's pa and appeal were denied , pt aware she called her insurance herself and got them approved last rx, # 30 patch, 1 Refills, Maintenance, 10/11/23 9:25:00 EDT, [facility], Partial f... Start Date: 10/11/23 Status: Ordered Mapap Arthritis Pain 650 mg oral tablet, extended release 2 tablet = 1,300 mg, By Mouth, Every 8 hours, PRN as needed for pain, # 100 tablet, 1 Refills, Maintenance, 03/30/23 21:21:00 EDT, ER Tablet, [facility]/pharmacy #1972, Partial fill upon patient request if the prescription is for a schedule II opioid drug.,... Start Date: 03/30/23 Status: Ordered melatonin 3 mg oral tablet 1 tablet = 3 mg, By Mouth, Daily at bedtime, # 30 tablet, 5 Refills, Maintenance, 08/01/23 16:00:00EST, [facility], Partial fill upon patient request if the prescription is for a schedule IIopioid drug., 161, cm, 08/01/23 15:59:00 EST, Heigh... Start Date: 08/01/23 Status: Ordered meloxicam 15 mg oral tablet 1 tablet = 15 mg, By Mouth, Daily, for pain take with food please, # 10 tablet, 0 Refills, Maintenance, 12/30/22 15:43:00 EDT, [facility]/pharmacy #1972, Partial fill upon patient request if the prescription is for a schedule II opioid drug., 161, cm, 12/27... Start Date: 12/30/22 Stop Date: 01/09/23 Status: Ordered montelukast 10 mg oral tablet 10 mg, 1, tablet, By Mouth, Daily at bedtime, TAKE 1 TABLET BY MOUTH EVERY DAY IN THE EVENING, # 30tablet, Refills 11, Tot. Refills 11, Maintenance, 12/14/23 15:09:00 EDT, Route to Pharmacy Electronically, [facility]/pharmacy #1972, Partial fill upon patien... Start Date: 12/14/23 Status: Ordered nabumetone 500 mg oral tablet 1 tablet, By Mouth, 2 times a day, TAKE WITH FOOD., # 60 tablet, 0 Refills, Maintenance, 03/31/23 18:55:00 EDT, [facility] STORE 97207, 161, cm, 03/29/23 14:07:00 EDT, Height, 85, [...] opioid drug. Start Date: 09/16/22 Status: Ordered predniSONE 10 mg oral tablet 1 tablet = 10 mg, By Mouth, Daily, 40mg x 3 days...30mg x 3 days...20mg x 3 days and 10mg x 3 days,# 30 tablet, 0 Refills, Maintenance, 07/02/23 8:58:00 EST, [facility], Partial fill upon patient request if the prescription is for a schedule... Start Date: 07/02/23 Status: Ordered Premarin 0.3 mg oral tablet 1 tablet = 0.3 mg, By Mouth, Daily, # 30 tablet, 11 Refills, Maintenance, 08/01/23 16:01:00 EST, [facility], Partial fill upon patient request if the prescription is for a schedule II opioid drug., 161, cm, 08/01/23 15:59:00 EST, Height, 85, k... Start Date: 08/01/23 Status: Ordered traMADol 50 mg oral tablet 1 tablet = 50 mg, By Mouth, 2 times a day, for severe pain due to rotator cuff tear. may obtain fewer, # 60 tablet, 0 Refills, Maintenance, 09/27/23 15:15:00 EST, [facility], Partial fill upon patient request if the prescription is for a sched... Start Date: 09/27/23 Status: Ordered Trelegy Ellipta 200 mcg-62.5 mcg-25 mcg/inh inhalation powder 1 puffs, Inhalation, Daily, at the same time every day, # 1 each, 11 Refills, Maintenance, 10/23/2411:09:00 EDT, Powder, [facility], Partial fill upon patient request if the prescription is for a schedule II opioid drug., 1 puffs Inhalation D... Start Date: 10/23/23 Status: Ordered verapamil 180 mg oral capsule, extended release 1 capsule, By Mouth, Daily, # 90 capsule, 1 Refills, Maintenance, 02/13/24 9:40:00 EDT, [facility], 161, cm, 01/16/24 16:04:00 EDT, Height, 82.1, kg, 08/05/23 8:10:00 EST, Dry Weight Start Date: 02/13/24 Status: Ordered ZyrTEC 10 mg oral tablet 1 tablet = 10 mg, By Mouth, Daily at bedtime, # 30 tablet, 5 Refills, Maintenance, 12/14/23 15:08:00 EDT, Tablet, [facility], Partial fill upon patient request if the prescription is for a schedule II opioid drug., 161, cm, 12/14/23 15:02:00 E... Start Date: 12/14/23 Status: Ordered Problem List Condition Confirmation Course [...] Confirmed Active OCD Confirmed Active *Joseph Resendez, Splicing Machine Operator Automatic, ICP [phone] Confirmed Active 1Jantoinette Streeter [facility] [place] 2Case Triage Licensed Practical Nurse Parish Proctor ([facility]); Psychiatrist - Dr Konstantin Narvaez 3admitted at adult partial hospitalization program (adult intensive short term out-pt psychiatric program). 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 BRCA1/2 negative,seen by genetics 6follow up at [facility] GI - Dr Richey. Multiple endoscopies, all normal. Other diagnosis is Non-ulcer dyspepsia Social History Social History Type Response Smoking Status Never smoker entered on: 02/07/14 Sex Female Patient Care team information Care Team Personnel Name: Mitch Lopez Position: S PCO Associate Professional Member Role: PCP Address: Address: [address] [place] [address] [place] [address]- Care Team Related Persons Name: GABINO CASTANEDA Address: [address] [place] [address] Name: JERROD BEAUCHAMP Address: home [place], [place] Name: BRE MIRANDA Address: home [address] [place] [address] Name: ALEYDA BEE Address: home [address] [place] [address] Name: ALEYDA BEE Address: home [address] [place] [address] Name: ROMIE PUENTES Address: home [address] [place] [address]
--- OUTSIDE RECORDS SUMMARY | 2024-04-05 15:15 | XMS_ITS | Continuity of Care Document ---
Author Organization [facility] Address [address] [place] [address]- Care Team Providers Care Beater Room Supervisor Name Role Phone Mitch Lopez Primary Care Physician [facility]23 - 05/14/23 [facility] [address] [place], [place] [address] Allergies, Adverse Reactions, Alerts Substance Reaction Severity Status trimethoprim Urticaria Active prochlorperazine Unknown Active sulfa drugs Breathing problem Active Motrin Breathing problem GI upset Active Compazine unknown Active Bactrim [...] 18 07/18/06 Given 1Admin Note: Administered at [facility] on [facility] in [place]. 2Location History: [facility] pharmacy 3Result Comment: [06/27/2014] PT HAD AT [facility] 4Admin Note: VIS GIVEN VIS DATE 01/30/2012 5Admin Note: flulaval vis given vis date 02/22/2011 6Admin Note: vis given 03/09/10 7Result Comment: Received at [facility] on [facility] 8Admin Note: VIS given 9Admin Note: [...] opioid drug. Start Date: 09/14/22 Status: Ordered [facility] MELATONIN 3 MG TABLET [facility] MELATONIN 3 MG TABLET, 1, tablet, [...] tablet, 2 Refills, Maintenance, 03/31/23 18:55:00 EDT, [facility] STORE [id number], 161, cm, 03/29/23 14:07:00 EDT, Height, 85, [...] tablet, 0 Refills, Maintenance, 03/31/23 18:55:00 EDT, [facility] STORE 76518, 161, cm, 03/29/23 14:07:00 EDT, Height, 85, [...] 19:11:00 EDT, Aerosol, Route to Pharmacy Electronically, [id number], [facility]/pharmacy #1972, 161... Start Date: 11/24/22 Status: [...] Refills, Maintenance, 03/22/23 11:50:00 EDT, [facility], 161, cm, 03/20/23 17:26:00 EDT, Height, 85, [...] Confirmed Active OCD Confirmed Active *Joseph Resendez, General Adjuster, ICP [phone] Confirmed Active 1Jantoinette Streeter [facility] [place] 2Case Hand Roller Engraver Parish Proctor ([facility]); Psychiatrist - Dr Konstantin Narvaez 3admitted at adult partial hospitalization program (adult intensive short term out-pt psychiatric program). 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 BRCA1/2 negative,seen by genetics 6follow up at [facility] GI - Dr Richey. Multiple endoscopies, all normal. Other diagnosis is Non-ulcer dyspepsia Social History Social History Type Response Smoking Status Never smoker entered on: 02/07/14 Sex Female Patient Care team information Care Team Personnel Name: Mitch Lopez Position: [facility] PCO Associate Professional Member Role: PCP Address: Address: [address] [place] [address] [place] [address]- Care Team Related Persons Name: GABINO CASTANEDA Address: home [address] [place] [address] Name: JERROD BEAUCHAMP Address: home [place], [place] Name: BRE MIRANDA Address: home [address] [place] [address] Name: ALEYDA BEE Address: home [address] [place] [address] Name: ALEYDA BEE Address: home [address] [place] [address] Name: ROMIE PUENTES Address: home [address] [place] [address]
--- OUTSIDE RECORDS SUMMARY | 2024-04-05 15:15 | XMS_ITS | Continuity of Care Document ---
Author Organization [facility] Address [address] [place] [address]- Care Team Providers Care Men'S Furnishings Salesperson Name Role Phone Mitch Lopez Primary Care Physician [facility] Date[facility]s): 11/30/21 - 12/30/21 [facility] [address] [place] [address]- Allergies, Adverse Reactions, Alerts Substance Reaction Severity [...] Vaccine (oldterm) 8 05/03/06 Given tetanus/diphtheria/pertussis, acel(Tdap) 9/24/14 Given hepatitis B adult vaccine 9 01/09/13 [...] Refuses 1Admin Note: Administered at [facility] on [facility] in [place]. 2Location History: [facility] pharmacy 3Result Comment: [06/27/2014] PT HAD AT [facility] 4Admin Note: VIS GIVEN VIS DATE 01/30/2012 5Admin Note: flulaval vis given vis date 02/22/2011 6Admin Note: vis given 03/09/10 7Result Comment: Received at [facility] on [facility] 8Admin Note: VIS given 9Admin Note: [...] EVERY DAY Start Date: 05/05/21 Status: Ordered capsaicin 0.1% topical cream 1 application, Topically, 3 times a day, PRN Pain , Moderate, for 14 days, wash hands thoroughly after application, # 42.5 Gm, 0 Refills, Acute 01/04/22 14:43:00 EDT, 12/21/21 14:43:00 EDT, Cream, [id number], Partial fill upon patient request... Start Date: 12/21/21 Stop Date: 01/04/22 Status: Ordered Coricidin HBP Chest Congestion & [...] # 120 tablet, 2 Refills, [facility], 160, cm, 11/22/21 10:23:00 EDT, Height, 88.2, kg, 11/11/21 9:53:00 EDT, Dry Weight Start Date: 11/30/21 Status: Ordered life line via cellular /wrist bracelet life line via cellular /wrist bracelet, See Instructions, # 1 each, Refills 0, Tot. Refills 0, Maintenance, impaired mobility z74.09 , risk for falls z91.81, 12/29/21 13:41:00 EDT, Supply Start Date: 12/29/21 Status: Ordered meloxicam 7.5 mg oral tablet 1 tablet, By Mouth, Daily, FOR ARTHRITIS PAIN. TAKE WITH FOOD, # 30 tablet, 1 Refills, 11/22/21 11:20:00 EDT, [facility], 160, cm, 11/22/21 10:23:00 EDT, Height, 88.2, kg, 04/14/22 9:53:00 EDT, Dry Weight Start Date: 11/22/21 Status: Ordered montelukast 10 mg oral tablet TAKE 1 TABLET BY MOUTH EVERY DAY IN THE EVENING Start Date: 05/05/21 Status: Ordered ProAir HFA 90 mcg/inh inhalation aerosol with adapter 2, puffs, Inhalation, Every 6 hours, PRN, # 1 each, Refills 11, Tot. Refills 11, Maintenance, 09/07/21 11:12:00 EST, Route to Pharmacy Electronically, [id number], [facility]/pharmacy #1972, 160.02, cm, 09/07/21 10:18:00 EST, Height,... Start Date: 09/07/21 Stop Date: 09/02/22 Status: Ordered Spiriva Respimat 1.25 mcg/inh inhalation aerosol 2 puffs, Inhalation, Daily, # 1 each, 11 Refills, Maintenance, 09/07/21 11:12:00 EST, [facility]/pharmacy #1972, Partial fill upon patient request if the prescription is for a schedule II opioid drug., 160.02, cm, 09/07/21 10:18:00 EST, Height, 85, kg, 03/11... Start Date: 09/07/21 Status: Ordered SUMAtriptan 50 mg oral tablet [...] 17:59:00 EST, Aerosol, Route to Pharmacy Electronically, [id number], [facility]/pharmacy #1972, 160... Start Date: 09/08/21 Status: Ordered Tessalon Perles 100 mg oral capsule 1 capsule = 100 mg, By Mouth, 3 times a day, PRN Cough, # 20 capsule, 0 Refills, Maintenance, 09/16/21 15:25:00 EST, [facility]/pharmacy #1972, Partial fill upon patient request if the prescription is for aschedule II opioid drug., 160.02, cm, 09/16/21 14:3... Start Date: 09/16/21 Status: Ordered verapamil 180 mg oral capsule, extended release 1 capsule, By Mouth, Daily, # 30 capsule, 5 Refills, [facility], 160.02, cm, 07/05/21 10:30:00EST, Height, 85, kg, [...] Active *Joseph Resendez, Care Coord inator, ICP [phone](Confirmed) Active 1Jantoinette Streeter [facility] [place] 2Case Medical Record Transcriber Parish Proctor ([facility]); Psychiatrist - Dr Konstantin Narvaez 3admitted at adult partial hospitalization program (adult intensive short term out-pt psychiatric program). 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 BRCA1/2 negative,seen by genetics 6follow up at [facility] GI - Dr Desilets. Multiple endoscopies, all normal. Other diagnosis is Non-ulcer dyspepsia Social History Social History Type Response Smoking Status Never smoker entered on: 02/07/14 Sex Female
--- OUTSIDE RECORDS SUMMARY | 2024-04-05 15:16 | XMS_ITS | Continuity of Care Document ---
Author Organization [facility] Address [address] [place] [address]- Care Team Providers Care Car Spotter Name Role Phone Mitch Lopez Primary Care Physician [phone] [facility]): 07/30/23 - 08/29/23 [facility] [address] [place], [place] [address] Allergies, Adverse Reactions, Alerts Substance Reaction Severity Status trimethoprim Urticaria Active prochlorperazine Unknown Active Bactrim bruising Active sulfa drugs Breathing problem Active Motrin [...] 18 07/18/06 Given 1Admin Note: Administered at [facility] on [facility] in [place]. 2Location History: [facility] pharmacy 3Result Comment: [06/27/2014] PT HAD AT [facility] 4Admin Note: VIS GIVEN VIS DATE 01/30/2012 5Admin Note: flulaval vis given vis date 02/22/2011 6Admin Note: vis given 03/09/10 7Result Comment: Received at [facility] on [facility] 8Admin Note: VIS given 9Admin [...] opioid drug. Start Date: 09/14/22 Status: Ordered [facility] MELATONIN 3 MG TABLET [facility] MELATONIN 3 MG TABLET, 1, tablet, By Mouth, Daily at bedtime, # 30 tablet, 3 Refills, Maintenance, 03/31/23 18:55:00 EDT, 161, cm, 03/29/23 14:07:00 EDT, Height, 85, kg, 09/16/22 6:46:00 EST, DryWeight Start Date: 03/31/23 Status: Ordered diclofenac 1% topical gel 1 application, Topically, 4 times a day, PRN NEEDED, MODERATE PAIN., # 100 Gm, 3 Refills, Maintenance, 08/28/23 14:07:00 EST, [facility]/pharmacy #1972, 25, 1 application Topically 4 times a day,PRN: NEEDED,Instr:MODERATE PAIN., 161, cm, 08/16/23 11:00:... Start Date: 08/28/23 Status: Ordered hydrOXYzine hydrochloride 25 mg oral tablet 1 tablet, By Mouth, 2 times a day, PRN NEEDED FOR ANXIETY, # 60 tablet, 2 Refills, Maintenance, 06/09/23 19:43:00 EST, [facility], 161, cm, 05/27/23 9:13:00 EDT, Height, 85, kg, 09/16/22 6:46:00 EST, Dry Weight Start Date: 06/09/23 Status: Ordered lidocaine 5% topical film 1 patch, Topically, Daily, PRN NEEDED FOR PAIN REMOVE AFTER 12 HOURS, # 30 patch, 1 Refills, Maintenance, 07/28/23 17:33:00 EST, [facility] 10[facility], 30, APPLY 1 PATCH TOPICALLY DAILY NEEDED FOR PAIN REMOVE AFTER 12 HOURS, 161, cm, 07/20/23 10:04:00... Start Date: 07/28/23 Status: Ordered Lidoderm 5% film 1 patch, Topically, Daily, remove patches after 12 hours, # 30 patch, 0 Refills, Maintenance, 08/16/23 11:10:00 EST, [facility], Partial fill upon patient request if the prescription is for aschedule II opioid drug., 1 patch Topically Daily,I... Start Date: 08/16/23 Status: Ordered Mapap Arthritis Pain 650 mg [...] tablet, 0 Refills, Maintenance, 03/31/23 18:55:00 EDT, [facility] STORE 07354, 161, cm, 03/29/23 14:07:00 EDT, Height, 85, [...] 85, k... Start Date: 08/01/23 Status: Ordered Spiriva Respimat 1.25 mcg/inh inhalation aerosol 2 puffs, Inhalation, Daily, # 1 each, 11 Refills, Maintenance, 07/05/23 10:55:00 EST, [facility], Partial fill upon patient request if the prescription is for a schedule II opioid drug., 161,cm, 07/05/23 10:50:00 EST, Height, 85, kg, 09/16/22... Start Date: 07/05/23 Status: Ordered Symbicort 160mcg/4.5mcg Inhaler 2, puffs, Inhalation, 2 times a day, rinse mouth and throat after use, # 10.2 Gm, Refills 11, Tot. Refills 11, Maintenance, 07/05/23 10:54:00 EST, Aerosol, Route to Pharmacy Electronically, [id number], [facility], 161... Start Date: 07/05/23 Status: Ordered traMADol 50 mg oral tablet 1 tablet = 50 mg, By Mouth, 2 times a day, for severe pain due to rotator cuff tear. may obtain fewer, # 60 tablet, 0 Refills, Maintenance, 08/01/23 16:03:00 EST, [facility], Partial fill upon patient request if the prescription is for a sched... Start Date: 08/01/23 Status: Ordered Ventolin HFA 108 mcg/inh inhalation aerosol with adapter 2 puffs, Inhalation, Every 6 hours, PRN for wheezing, BILL BRAND NAME PER INSURANCE, # 8 Gm, 5 Refills, Maintenance, 07/05/23 10:55:00 EST, Aerosol, [facility], Partial fill upon patient request if the prescription is for a schedule II opioid... Start Date: 07/05/23 Status: Ordered verapamil 180 mg oral capsule, extended release 1 capsule, By Mouth, Daily, # 90 capsule, 1 Refills, Maintenance, 03/22/23 11:50:00 EDT, [facility], 161, cm, 03/20/23 17:26:00 EDT, Height, 85, [...] Confirmed Active OCD Confirmed Active *Joseph Resendez, Ring Stamper, ICP [phone] Confirmed Active 1Jantoinette Streeter [facility] [place] [facility] [place] 2Case Boiler Plant Worker Parish Proctor ([facility]); Psychiatrist - Dr Konstantin Narvaez 3admitted at adult partial hospitalization program (adult intensive short term out-pt psychiatric program). 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 BRCA1/2 negative,seen by genetics 6follow up at [facility] GI - Dr Richey. Multiple endoscopies, all normal. Other diagnosis is Non-ulcer dyspepsia Social History Social History Type Response Smoking Status Never smoker entered on: 02/07/14 Sex Female Patient Care team information Care Team Personnel Name: Mitch Lopez Position: S PCO Associate Professional Member Role: PCP Address: Address: [address] [place] [address] [place] [address]- Care Team Related Persons Name: GABINO CASTANEDA Address: home [address] [place] [address] Name: JERROD BEAUCHAMP Address: [place], [place] Name: BRE MIRANDA Address: home [address] [place] [address] Name: ALEYDA BEE Address: home [address] [place] [id number] Name: ALEYDA BEE Address: home [address] [place] [address] Name: ROMIE PUENTES Address: home [address] [place] [id number]
--- OUTSIDE RECORDS SUMMARY | 2024-04-05 15:16 | XMS_ITS | Continuity of Care Document ---
Author Organization [facility] Address [address] [place] [address]- Care Team Providers Care Jewelry Bearing Maker Name Role Phone Mitch Lopez Primary Care Physician [place] [facility] [place] 05/26/22 - 07/13/[address] [address]- Encounter Diagnosis Pain in left shoulder(Final) - Discharge Disposition: A-D/C Home Attending Physician: Tammy Hall MD Admitting Physician: Tammy Hall MD Referring Physician: Mitch Lopez Allergies, Adverse Reactions, [...] Given Patient Refuses 1Admin Note: Administered at [facility] on [facility] in [place]. 2Location History: [facility] pharmacy 3Result Comment: [06/27/2014] PT HAD AT [facility] 4Admin Note: VIS GIVEN VIS DATE 01/30/2012 5Admin Note: flulaval vis given vis date 02/22/2011 6Admin Note: vis given 03/09/10 7Result Comment: Received at [facility] on [facility] 8Admin Note: VIS given 9Admin Note: 2nd [...] tablet, 0 Refills, Maintenance, 04/15/22 16:54:00 EDT, [facility]/pharmacy #1972, Partial fill upon patient [...] Refills, Maintenance, 07/07/22 18:54:00 EST, [facility], 30, APPLY 1 PATCH TOPICALLY DAILY NEEDED [...] tablet, 0 Refills, Maintenance, 06/19/22 12:17:00 EST, [facility], 160, cm, 06/07/22 9:36:00 EST, Height, 88.2, [...] each, 11 Refills, Maintenance, 06/07/22 10:22:00 EST, [facility]/pharmacy #1972, Partial fill upon patient request if the prescription is for a schedule II opioid drug., 160,cm, 06/07/22 9:36:00 EST, Height, 88.2, kg, 2... Start Date: 06/07/22 Status: Ordered SUMAtriptan 50 [...] 10:22:00 EST, Aerosol, Route to Pharmacy Electronically, [id number], [facility]/pharmacy #1972, 160... Start Date: 06/07/22 Status: Ordered terazosin 2 mg oral capsule 1, capsule, By Mouth, Daily at bedtime, INSTR:CONTINUE TAKING TILL STONE EXPULSION OR TILL 4 WEEKS AND THEN DISCONTINUE., # 30 capsule, Refills 0, Maintenance, 03/28/22 14:40:00 EDT, Route to Pharmacy Electronically, [facility] STORE 71169, 160, cm, 03/15/22... Start Date: 03/28/22 Status: [...] Refills, Maintenance, 06/16/22 9:46:00 EST, [facility], 160, cm, 06/07/22 9:36:00 EST, Height, 88.2, [...] Confirmed Active OCD Confirmed Active *Joseph Resendez, Single Stroke Preformer, ICP [phone] Confirmed Active 1[facility] 2Case Financial Solutions Advisor Parish [place] ([facility]); Psychiatrist - Dr Konstantin Narvaez 3admitted at adult partial hospitalization program (adult intensive short term out-pt psychiatric program). 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 BRCA1/2 negative,seen by genetics 6follow up at [facility] GI - Dr Richey. Multiple endoscopies, all normal. Other diagnosis is Non-ulcer dyspepsia Social History Social History Type Response Smoking Status Never smoker entered on: 02/07/14 Sex Female Patient Care team information Care Team Personnel Name: Mitch Lopez Position: [facility] PCO Associate Professional Member Role: PCP Address: Address: [address] [place] [address] [place] [address]- Care Team Related Persons Name: GABINO CASTANEDA Address: home [address] [place] [address] Name: BRE MIRANDA Address: [address] [place] [address] Name: ALEYDA BEE Address: home [address] [place] [address] Name: ALEYDA BEE Address: [address] [place] [address] Name: ROMIE PUENTES Address: home [address] [place] [address]
--- OUTSIDE RECORDS SUMMARY | 2024-04-05 15:16 | XMS_ITS | Continuity of Care Document ---
Author Organization [facility] Address [address] [place] [address]- Care Team Providers Care Car Attendant Name Role Phone Mitch Lopez Primary Care Physician [facility]): 05[facility]17[facility]22 - 06/16/22 [facility] [address] [place] [id number] Allergies, Adverse Reactions, Alerts Substance Reaction Severity Status Compazine unknown Active Bactrim bruising Active sulfa drugs Active Immunizations Given and Recorded Vaccine Date [...] Given Patient Refuses 1Admin Note: Administered at [facility] on [facility] in [place]. 2Location History: [facility] pharmacy 3Result Comment: [06/27/2014] PT HAD AT [facility] 4Admin Note: VIS GIVEN VIS DATE 01/30/2012 5Admin Note: flulaval vis given vis date 02/22/2011 6Admin Note: vis given 03/09/10 7Result Comment: Received at [facility] on [facility] 8Admin Note: VIS given 9Admin Note: 2nd [...] tablet, 0 Refills, Maintenance, 04/15/22 16:54:00 EDT, [facility]/pharmacy #1972, Partial fill upon patient request [...] remove after 12 hours, # 30 patch, 1 Refills, Maintenance, 04/18/22 14:34:00 EDT, Film, [facility], Partial fill upon patient request if the prescription is for a schedule II opioid drug., 1 patch To... Start Date: 04/18/22 Status: Ordered life line via cellular /wrist [...] FOOD., # 60 tablet, 0 Refills, Maintenance, 05/12/22 13:13:00 EDT, [facility] STORE 01528, 160, cm, 05/04/22 16:09:00 EDT, Height, 88.2, kg, 11/11/21 9:53:00 EDT, Dry Weight Start Date: 05/12/22 Status: Ordered Premarin 0.3 mg oral tablet 1 tablet = 0.3 mg, By Mouth, Daily, # 30 tablet, 3 Refills, Maintenance, 03/28/22 16:11:00 EDT, [facility], Partial fill upon patient request if the prescription is for a schedule II opioid drug., 160, cm, 03/15/22 14:14:00 EDT, Height, 88.2,... Start Date: 03/28/22 Status: Ordered Shingrix intramuscular injection = 0.5 [...] Refills, Soft Stop, 03/15/22 14:32:00 EDT, Powder, [facility]/pharmacy #1972, Partial fill upon patient request if the prescription is for a schedule II opioid drug., 0.5 mL Intramuscul... Start Date: 03/15/22 Status: Ordered Spiriva Respimat 1.25 mcg/inh inhalation aerosol 2 puffs, Inhalation, Daily, # 1 each, 11 Refills, Maintenance, 06/07/22 10:22:00 EST, [facility], Partial fill upon patient [...] 10:22:00 EST, Aerosol, Route to Pharmacy Electronically, [id number], [facility]/pharmacy #1972, 160... Start Date: 06/07/22 Status: Ordered terazosin 2 mg oral capsule 1, capsule, By Mouth, Daily at bedtime, INSTR:CONTINUE TAKING TILL STONE EXPULSION OR TILL 4 WEEKS AND THEN DISCONTINUE., # 30 capsule, Refills 0, Maintenance, 03/28/22 14:40:00 EDT, Route to Pharmacy Electronically, [facility] STORE 79069, 160, cm, 03/15/22... Start Date: 03/28/22 Status: Ordered Tessalon Perles 100 mg oral capsule 1 capsule = 100 mg, By Mouth, 3 times a day, PRN Cough, # 20 capsule, 0 Refills, Maintenance, 09/16/21 15:25:00 EST, [facility], Partial fill upon patient request if the prescription is for aschedule II opioid drug., 160.02, cm, 09/16/21 14:3... Start Date: 09/16/21 Status: Ordered traMADol 50 mg oral tablet [...] Refills, Maintenance, 06/16/22 9:46:00 EST, [facility], 160, cm, 06/07/22 9:36:00 EST, Height, 88.2, [...] Active Chronic migraine Confirmed Active Obese class I Confirmed Active OCD Confirmed Active *Joseph Resendez, Manager Of Corporate Communications, [facility] [phone] Confirmed Active 1Jantoinette Streeter [facility] [place] [facility] [place] 2Case Clinical Team Lead Parish Proctor ([facility]); Psychiatrist - Dr Konstantin Narvaez 3admitted at adult partial hospitalization program (adult intensive short term out-pt psychiatric program). 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 BRCA1/2 negative,seen by genetics 6follow up at [facility] GI - Dr Richey. Multiple endoscopies, all normal. Other diagnosis is Non-ulcer dyspepsia Social History Social History Type Response Smoking Status Never smoker entered on: 02/07/14 Sex Female Patient Care team information Care Team Personnel Name: Mitch Lopez Position: S PCO Associate Professional Member Role: PCP Address: Address: [address] [place] [address] [place] [address]- Care Team Related Persons Name: GABINO CASTANEDA Address: home [address] [place] [address] Name: BRE MIRANDA Address: [address] [place] [address] Name: ALEYDA BEE Address: [address] [place] [address] Name: ALEYDA BEE Address: [address] [place] [address] Name: ROMIE PUENTES Address: [address] [place] [address]
--- OUTSIDE RECORDS SUMMARY | 2024-04-05 15:16 | XMS_ITS | Continuity of Care Document ---
Author Organization [facility] y Address [address] [place] [address] o[address], [address] [place] [address]- Care Team Providers Care Porcelain Waxer Name Role Phone Mitch Lopez Primary Care Physician [facility] 07[facility]21 - 08/28/21 [facility] [address] [place] [address] Drive, [address] [place], [place] [address] Allergies, Adverse Reactions, Alerts Substance Reaction Severity [...] Given Patient Refuses 1Result Comment: Received at [facility] on [address] 2Admin Note: VIS given 3Admin Note: Administered at [facility] on [address] in [place]. 4[facility] 5Result Comment: [06/27/2014] PT HAD AT [facility] 6Admin Note: VIS GIVEN VIS [...] EVERY DAY Start Date: 05/05/21 Status: Ordered [facility] MELATONIN 3 MG TABLET [facility] [...] 42.5 Gm, 2 Refills, Maintenance, 09/08/20 14:57:00EST, [facility]/pharmacy #1972, 160.02, cm, 07/29/20 16:36:00 [...] A DAY, # 120 tablet, 2 Refills, [facility] STORE 94813, 160.02, cm, 07/05/21 10:30:00 EST, Height, 85, kg, 03/11/21 17:07:00 EDT, Dry Weight Start Date: 08/22/21 Status: Ordered montelukast 10 mg oral tablet TAKE 1 TABLET BY MOUTH EVERY DAY IN THE EVENING Start Date: 05/05/21 Status: Ordered naproxen 500 mg oral tablet 1 tablet = 500 mg, By Mouth, 2 times a day, # 28 tablet, 0 Refills, Maintenance, 03/08/21 18:54:00 EDT, Tablet, [facility]/pharmacy #1972, Partial fill upon patient request if the prescription is for a schedule II opioid drug., 160.02, cm, 03/08/21 18:21:00... Start Date: 03/08/21 Stop Date: 03/22/21 Status: Ordered ProAir HFA 90 mcg/inh inhalation aerosol with adapter 2, puffs, Inhalation, Every 6 hours, PRN, # 1 each, Refills 5, Tot. Refills 5, Maintenance, 06/28/21 16:04:00 EST, Route to Pharmacy Electronically, [id number], [facility]/pharmacy#1972, 160.02, cm, 06/08/21 8:42:00 EST, Height, 85... Start Date: 06/28/21 Stop Date: 12/25/21 Status: Ordered Spiriva Respimat 1.25 mcg/inh inhalation [...] 1 Refills, Soft Stop, 10/07/20 9:06:00 EST, [facility]/pharmacy #1972, Partial fill upon patient request if the prescription is for a schedule II opioid drug., 160.... Start Date: 10/07/20 Status: Ordered Symbicort 160mcg/4.5mcg Inhaler INHALE 2 PUFFS TWICE A DAY Start Date: 05/05/21 Status: Ordered verapamil 180 mg oral capsule, extended release 1 capsule, By Mouth, Daily, # 30 capsule, 5 Refills, [facility], 160.02, cm, 07/05/21 10:30:00EST, Height, 85, kg, 03/11/21 17:07:00 EDT, Dry Weight Start Date: 08/23/21 Status: Ordered Problem List Condition Effective Dates Status Health Status Inform ant Asthma(Confirmed) 07/05/05 Active Bipolar disorder(Confirmed) 1, 2, 3 Active Chronic back pain(Confirmed) 07/05/05 Active Gastric nodule(Confirmed) 4 Active H/O ovarian cancer(Confirmed) 5 Active Hiatal hernia(Confirmed) Active Hysterectomy(Confirmed) Active Irritable bowel syndrome(Confirmed) 6 Active Kidney stone(Confirmed) Active Chronic migraine(Confirmed) Active Obese class I(Confirmed) Active OCD(Confirmed) Active *Joseph Resendez, Kendell mackenzie, [facility] [phone](Confirmed) Active Dyan Streeter [facility] [place] 2Case Senior Credit Officer Parish Proctor ([facility]); Psychiatrist - Dr Konstantin Narvaez 3admitted at adult partial hospitalization program (adult intensive short term out-pt psychiatric program). 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 BRCA1/2 negative,seen by genetics 6follow up at [facility] - Dr Richey. Multiple endoscopies, all normal. Other diagnosis is Non-ulcer dyspepsia Social History Social History Type Response Smoking Status Never smoker entered on: 02/07/14 Sex Female
--- OUTSIDE RECORDS SUMMARY | 2024-04-05 15:16 | XMS_ITS | Continuity of Care Document ---
Author Organization [facility] Address [address] [place] [address]- Care Team Providers Care Rn Integrated Name Role Phone Mitch Lopez Primary Care Physician [phone] [facility]): 07/17/23 - 08/16/23 [facility] [address] [place] [address]- Allergies, Adverse Reactions, Alerts Substance Reaction Severity Status trimethoprim Urticaria Active Bactrim bruising Active prochlorperazine Unknown Active [...] 18 07/18/06 Given 1Admin Note: Administered at [facility] on [facility] in [place]. 2Location History: [facility] pharmacy 3Result Comment: [06/27/2014] PT HAD AT [facility] 4Admin Note: VIS GIVEN VIS DATE 01/30/2012 5Admin Note: flulaval vis given vis date 02/22/2011 6Admin Note: vis given 03/09/10 7Result Comment: Received at [facility] on [facility] 8Admin Note: VIS given 9Admin Note: [...] opioid drug. Start Date: 09/14/22 Status: Ordered [facility] MELATONIN 3 MG TABLET [facility] MELATONIN 3 MG TABLET, 1, tablet, By Mouth, Daily at bedtime, # 30 tablet, 3 Refills, Maintenance, 03/31/23 18:55:00 EDT, 161, cm, 03/29/23 14:07:00 EDT, Height, 85, kg, 09/16/22 6:46:00 EST, DryWeight Start Date: 03/31/23 Status: Ordered diclofenac 1% topical gel 1 application, Topically, 4 times a day, PRN NEEDED, MODERATE PAIN., # 100 Gm, 3 Refills, Maintenance, 07/06/23 14:28:00 EST, [facility], 25, USE 1 APPLICATION TOPICALLY 4 TIMES A DAY NEEDED MODERATE PAIN, 161, cm, 07/05/23 10:50:00 EST, He... Start Date: 07/06/23 Status: Ordered hydrOXYzine hydrochloride 25 mg oral tablet 1 tablet, By Mouth, 2 times a day, PRN NEEDED FOR ANXIETY, # 60 tablet, 2 Refills, Maintenance, 06/09/23 19:43:00 EST, [facility], 161, cm, 05/27/23 9:13:00 EDT, Height, 85, kg, 09/16/22 6:46:00 EST, Dry Weight Start Date: 06/09/23 Status: Ordered lidocaine 5% topical film 1 patch, Topically, Daily, PRN NEEDED FOR PAIN REMOVE AFTER 12 HOURS, # 30 patch, 1 Refills, Maintenance, 07/28/23 17:33:00 EST, [facility], 30, APPLY 1 PATCH TOPICALLY DAILY NEEDED FOR PAIN REMOVE AFTER 12 HOURS, 161, cm, 07/20/23 10:04:00... Start Date: 07/28/23 Status: Ordered Lidoderm 5% film 1 patch, Topically, Daily, remove patches after 12 hours, # 30 patch, 0 Refills, Maintenance, 08/16/23 11:10:00 EST, [facility]/pharmacy #1972, [...] tablet, 0 Refills, Maintenance, 03/31/23 18:55:00 EDT, [facility] STORE 12944, 161, cm, 03/29/23 14:07:00 EDT, Height, 85, [...] 10:54:00 EST, Aerosol, Route to Pharmacy Electronically, [id number], [facility], 161... Start Date: 07/05/23 Status: [...] Refills, Maintenance, 03/22/23 11:50:00 EDT, [facility], 161, cm, 03/20/23 17:26:00 EDT, Height, 85, [...] Confirmed Active OCD Confirmed Active *Joseph Resendez, Assistant Art Director, ICP [phone] Confirmed Active 1Jantoinette Streeter [facility] [place] [facility] [place] 2Case Soil Sort Worker Parish Proctor ([facility]); Psychiatrist - Dr Konstantin Narvaez 3admitted at adult partial hospitalization program (adult intensive short term out-pt psychiatric program). 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 BRCA1/2 negative,seen by genetics 6follow up at [facility] GI - Dr Richey. Multiple endoscopies, all normal. Other diagnosis is Non-ulcer dyspepsia Social History Social History Type Response Smoking Status Never smoker entered on: 02/07/14 Sex Female Patient Care team information Care Team Personnel Name: Mitch Lopez Position: S PCO Associate Professional Member Role: PCP Address: Address: [address] [place] [address] [place] [address]- [place] Care Team Related Persons Name: GABINO CASTANEDA Address: home [address] [place] [address] Name: JERROD BEAUCHAMP Address: [place], [place] Name: BRE MIRANDA Address: home [address] [place] [address] Name: ALEYDA BEE Address: home [address] [place] [address] Name: ALEYDA BEE Address: home [address] [place] [address] Name: ROMIE PUENTES Address: home [address] [place] [address]
--- OUTSIDE RECORDS SUMMARY | 2024-04-05 15:16 | XMS_ITS | Continuity of Care Document ---
Author Organization [facility] Address [address] [place] [address]- Care Team Providers Care Process Stripper Name Role Phone Mitch Lopez Primary Care Physician [facility]23 - 04/13/23 [facility] [address] [place], [place] [address] Allergies, Adverse Reactions, Alerts Substance Reaction [...] 18 07/18/06 Given 1Admin Note: Administered at [facility] on [facility] in [place]. 2Location History: [facility] pharmacy 3Result Comment: [06/27/2014] PT HAD AT [facility] 4Admin Note: VIS GIVEN VIS DATE 01/30/2012 5Admin Note: flulaval vis given vis date 02/22/2011 6Admin Note: vis given 03/09/10 7Result Comment: Received at [facility] on [facility] 8Admin Note: VIS given 9Admin [...] opioid drug. Start Date: 09/14/22 Status: Ordered [facility] MELATONIN 3 MG TABLET [facility] MELATONIN 3 MG TABLET, 1, tablet, By [...] tablet, 2 Refills, Maintenance, 03/31/23 18:55:00 EDT, [facility] STORE 46389, 161, cm, 03/29/23 14:07:00 EDT, Height, 85, [...] tablet, 0 Refills, Maintenance, 03/31/23 18:55:00 EDT, [facility] STORE 52238, 161, cm, 03/29/23 14:07:00 EDT, Height, 85, [...] 19:11:00 EDT, Aerosol, Route to Pharmacy Electronically, [id number], [facility]/pharmacy #1972, 161... Start Date: 11/24/22 Status: Ordered [...] Refills, Maintenance, 03/22/23 11:50:00 EDT, [facility], 161, cm, 03/20/23 17:26:00 EDT, Height, 85, [...] Confirmed Active OCD Confirmed Active *Joseph Resendez, Alumni Relations Manager, ICP [phone] Confirmed Active 1Jantoinette Streeter [facility] [place] [facility] [place] 2Case Sterile Processing Tech Parish Proctor ([facility]); Psychiatrist - Dr Konstantin Narvaez 3admitted at adult partial hospitalization program (adult intensive short term out-pt psychiatric program). 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 BRCA1/2 negative,seen by genetics 6follow up at [facility] GI - Dr Richey. Multiple endoscopies, all normal. Other diagnosis is Non-ulcer dyspepsia Social History Social History Type Response Smoking Status Never smoker entered on: 02/07/14 Sex Female Patient Care team information Care Team Personnel Name: Mitch Lopez Position: S PCO Associate Professional Member Role: PCP Address: Address: [address] [place] [address] [place] [address]- Care Team Related Persons Name: GABINO CASTANEDA Address: home [address] [place] [address] Name: JERROD BEAUCHAMP Address: home [place], [place] Name: BRE MIRANDA Address: home [address] [place] [address] Name: ALEYDA BEE Address: [address] [place] [address] Name: ALEYDA BEE Address: home [address] [place] [address] Name: ROMIE PUENTES Address: home [address] [place] [address]
--- OUTSIDE RECORDS SUMMARY | 2024-04-05 15:16 | XMS_ITS | Continuity of Care Document ---
Author Organization [facility] ter Address [address] [place] [address]- Care Team Providers Care Senior Research Associate Name Role Phone Mitch Lopez Primary Care Physician [phone] [facility]23 - 06/17/23 [facility] [address] [place] [address] Attending Physician: Mitch Lopez Admitting Physician: Mitch Lopez Referring Physician: Mitch Lopez Allergies, Adverse Reactions, [...] 18 07/18/06 Given 1Admin Note: Administered at [facility] on [facility] in [place]. 2Location History: [facility] pharmacy 3Result Comment: [06/27/2014] PT HAD AT [facility] 4Admin Note: VIS GIVEN VIS DATE 01/30/2012 5Admin Note: flulaval vis given vis date 02/22/2011 6Admin Note: vis given 03/09/10 7Result Comment: Received at [facility] on [facility] 8Admin Note: VIS given 9Admin Note: [...] opioid drug. Start Date: 09/14/22 Status: Ordered [facility] MELATONIN 3 MG TABLET [facility] MEL[facility]IN [facility] [...] tablet, 2 Refills, Maintenance, 06/09/23 19:43:00 EST, [facility] STORE 36297, 161, cm, 05/27/23 9:13:00 EDT, Height, 85, [...] tablet, 0 Refills, Maintenance, 12/30/22 15:43:00 EDT, [facility]/pharmacy #1972, Partial fill upon patient request if [...] 10/31/22 16:24:00 EDT, Route to Pharmacy Electronically, [facility]/pharmacy #1972, Partial fill upon patien... Start Date: 10/31/22 Status: Ordered nabumetone 500 mg oral tablet 1 tablet, By Mouth, 2 times a day, TAKE WITH FOOD., # 60 tablet, 0 Refills, Maintenance, 03/31/23 18:55:00 EDT, [facility] STORE 94825, 161, cm, 03/29/23 14:07:00 EDT, Height, 85, [...] tablet, 11 Refills, Maintenance, 07/12/22 14:20:00 EST, [facility]/pharmacy #1972, Partial fill upon patient request if [...] 19:11:00 EDT, Aerosol, Route to Pharmacy Electronically, [id number], [facility], 161... Start Date: 11/24/22 Status: Ordered traMADol 50 mg oral tablet 1 tablet = 50 mg, By Mouth, 2 times a day, for severe pain due to rotator cuff tear. may obtain fewer, # 60 tablet, 0 Refills, Maintenance, 05/22/23 17:55:00 EDT, [facility], Partial fill upon patient request if the prescription is for a sched... Start Date: 05/22/23 Status: Ordered Ventolin HFA 108 mcg/inh inhalation [...] Refills, Maintenance, 03/22/23 11:50:00 EDT, [facility], 161, cm, 03/20/23 17:26:00 EDT, Height, 85, [...] Confirmed Active OCD Confirmed Active *Joseph Resendez, Employment Case Manager, ICP [phone] Confirmed Active 1Jantoinette Streeter [facility] Psychiatry [place] 2Case Fire Patrol Parish Proctor ([facility]); Psychiatrist - Dr Konstantin Narvaez 3admitted at adult partial hospitalization program (adult intensive short term out-pt psychiatric program). 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 BRCA1/2 negative,seen by genetics 6follow up at [facility] GI - Dr Richey. Multiple endoscopies, all normal. Other diagnosis is Non-ulcer dyspepsia Social History Social History Type Response Smoking Status Never smoker entered on: 02/07/14 Sex Female Patient Care team information Care Team Personnel Name: Mitch Lopez Position: S PCO Associate Professional Member Role: PCP Address: Address: [address] [place] [address] [place] [address]- Care Team Related Persons Name: GABINO CASTANEDA Address: home [address] [place] [address] Name: JERROD BEAUCHAMP Address: [place], [place] Name: BRE MIRANDA Address: home [address] [place] [address] Name: ALEYDA BEE Address: [address] Name: ALEYDA BEE Address: home [address] [place] [address] Name: ROMIE PUENTSE Address: home [address] [place] [address]
--- OUTSIDE RECORDS SUMMARY | 2024-04-05 15:16 | XMS_ITS | Continuity of Care Document ---
Author Organization [facility] Address [address] [place] [address]- Care Team Providers Care Warehouse Person Name Role Phone Mitch Lopez Primary Care Physician [phone] [facility] 06[facility]20 - 07/12/20 [facility] [address] [place] [address]- Attending Physician: Not on Staff, Attending MD [...] influenza virus vaccine, inactivated 8 07/08/10 Gi imkaela tetanus/diphtheria/pertussis, acel(Tdap) 04/23/14 Given hepatitis B adult [...] Patient Refuses 1Result Comment: Received at [facility] on [address] 2Admin Note: VIS given 3Admin Note: Administered at [facility] on [address] in [place]. 4Location History: [facility] pharmacy 5Result Comment: [06/27/2014] PT HAD AT [facility] 6Admin Note: VIS GIVEN VIS [...] Gm, 2 Refills, Maintenance, 03/04/20 12:12:00 EDT, [facility]/pharmacy #1972, 160.02, cm, 03/04/20 11:50:00 EDT, Height, [...] 05/19/20 16:20:00 EDT, Route to Pharmacy Electronically, [id number], [facility]/pharmacy#1972, 160.02, cm, 04/28/20 13:40:00 EDT, Height, 9... Start Date: 05/19/20 Stop Date: 11/15/20 Status: Ordered ProAir HFA 90 mcg/inh inhalation aerosol with adapter 2, puffs, Inhalation, Every 6 hours, PRN, # 1 each, Refills 5, Tot. Refills 5, Maintenance, 06/16/20 18:28:00 EST, Route to Pharmacy Electronically, [id number], [facility]/pharmacy#1972, 160.02, cm, 05/27/20 13:10:00 EDT, Height, 9... [...] 30 capsule, 11 Refills, Maintenance, [facility], 160.02, cm, 10/11/19 15:24:00 EDT, Height, 85.91, kg, 08/01/19 12:13:00 EST, Dry Weight Start Date: 11/04/19 Status: Ordered Problem List Condition Effective Dates Status Health Status Inform ant Asthma(Confirmed) 07/05/05 Active Bipolar disorder(Confirmed) 1, 2, 3 Active Chronic back pain(Confirmed) 07/05/05 Active Gastric nodule(Confirmed) 4 Active H/O ovarian cancer(Confirmed) 5 Active Hiatal hernia(Confirmed) Active Hysterectomy(Confirmed) Active Irritable bowel syndrome(Confirmed) 6 Active Kidney stone(Confirmed) Active Chronic migraine(Confirmed) Active OCD(Confirmed) Active *Joseph Resendez, Care Coord inator, ICP [phone](Confirmed) Active 1Jantoinette Streeter [facility]iatry [place] 2Case Claim Administrator Parish Proctor ([facility]); Psychiatrist - Dr Konstantin Narvaez 3admitted at adult partial hospitalization program (adult intensive short term out-pt psychiatric program). 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 BRCA1/2 negative,seen by genetics 6follow up at [facility] GI - Dr Richey. Multiple endoscopies, all normal. Other diagnosis is Non-ulcer dyspepsia Social History Social History Type Response Smoking Status Never smoker entered on: 02/07/14 Sex Female
--- OUTSIDE RECORDS SUMMARY | 2024-04-05 15:16 | XMS_ITS | Continuity of Care Document ---
Author Organization [facility] Address [address] [place] [address]- Care Team Providers Care Industrial Training Specialist Name Role Phone Mitch Lopez Primary Care Physician [phone] [facility] 12[facility]20 - 01/03/21 [facility] [address] [place], [place] [address] Allergies, Adverse [...] Given Patient Refuses 1Result Comment: Received at [facility] on [address] 2Admin Note: VIS given 3Admin Note: Administered at [facility] on [address] in [place]. 4[facility] 5Result Comment: [06/27/2014] PT HAD AT [facility] 6Admin Note: VIS GIVEN VIS [...] 0 Refills, Maintenance, 12/04/20 17:24:00 EDT, Tablet, [facility]/pharmacy #1972, Partial fill upon patient request if the prescription is for a schedule II opioid drug., 160.02, cm, 12/04/20 17:05:00 EDT, [place] Start Date: 12/04/20 Status: Ordered Compression Stockings [...] 42.5 Gm, 2 Refills, Maintenance, 09/08/20 14:57:00EST, [facility]/pharmacy #1972, 160.02, cm, 07/29/20 16:36:00 EST, Height, 92.3, kg, 07/24/20 13:24:00 EST, Dry Weight Start Date: 09/08/20 Status: Ordered Flonase 50 mcg/inh nasal spray 1 sprays, Nares, Both, 2 times a day, # 16 Gm, 0 Refills, Maintenance, 08/08/20 15:21:00 EST, [place], [facility]/pharmacy #1972, Partial fill [...] tablet, 2 Refills, Maintenance, 11/06/20 17:02:00 EDT, [facility], Partial fill upon patient [...] 05/19/20 16:20:00 EDT, Route to Pharmacy Electronically, [id number], [facility], 160.02, cm, 04/28/20 13:40:00 EDT, Height, 9... Start Date: 05/19/20 Stop Date: 11/15/20 Status: Ordered ProAir HFA 90 mcg/inh inhalation aerosol with adapter 2, puffs, Inhalation, Every 6 hours, PRN, # 1 each, Refills 5, Tot. Refills 5, Maintenance, 06/16/20 18:28:00 EST, Route to Pharmacy Electronically, [id number], [facility]/pharmacy#1972, 160.02, cm, 05/27/20 13:10:00 EDT, [...] 1 Refills, Soft Stop, 10/07/20 9:06:00 EST, [facility]/pharmacy #1972, Partial [...] Active *Joseph Resendez, Care Coord inator, ICP [phone](Confirmed) Active 1Jantoinette Streeter [facility] [place] [facility] [place] 2Case Training And Development Professional Parish Proctor ([facility]); Psychiatrist - Dr Konstantin Narvaez [...]
--- OUTSIDE RECORDS SUMMARY | 2024-04-05 15:16 | XMS_ITS | Continuity of Care Document ---
Author Organization [facility] Address [address] [place] [address]- Care Team Providers Care Precision Instrument Maker Name Role Phone Mitch Lopez Primary Care Physician [facility] 10[facility]27[facility]21 - 11/26/21 [facility] [address] [place] [address]- Allergies, Adverse Reactions, Alerts Substance Reaction Severity [...] Refuses 1Result Comment: Received at [facility] on [facility] [address] 2Admin Note: VIS given 3Admin Note: Administered at [facility] on [facility] in [place]. 4Location History: [facility] 5Result Comment: [06/27/2014] PT HAD AT [facility] 6Admin Note: VIS GIVEN VIS [...] tablet, By Mouth, 3 times a day, For back pain., # 15 tablet, Refills 0, Tot. Refills 0, Maintenance, 11/22/21 11:19:00 EDT, Route to Pharmacy Electronically, [facility]/pharmacy #1972, Partial fill upon patient request if the prescription is for a... Start Date: 11/22/21 Stop Date: 11/27/21 Status: Ordered buPROPion 150 mg/24 hours (XL) oral tablet, extended release TAKE 1 TABLET BY MOUTH EVERY DAY Start Date: 05/05/21 Status: Ordered [facility] MELATONIN 3 MG TABLET [facility] MELATONIN 3 MG TABLET, 1, tablet, By Mouth, Daily at bedtime, # 30 tablet, 2 Refills, Maintenance, 02/17/21 19:34:00 EDT, 160.02, cm, 02/16/21 17:20:00 EDT, Height, 88.8, kg, 11/24/20 15:58:00 EDT, Dry Weight Start Date: 02/17/21 Status: Ordered Estrace Vaginal Cream 0.1 mg/g = 1 Gm, Vaginally, Every Monday and , # 42.5 Gm, 2 Refills, Maintenance, 09/08/20 14:57:00EST, [facility]/pharmacy #1972, 160.02, cm, 07/29/20 16:36:00 [...] A DAY, # 120 tablet, 2 Refills, [facility], 160.02, cm, 07/05/21 10:30:00 EST, Height, 85, kg, 03/11/21 17:07:00 EDT, Dry Weight Start Date: 08/22/21 Status: Ordered meloxicam 7.5 mg oral tablet [...] 09/07/21 11:12:00 EST, Route to Pharmacy Electronically, [id number], [facility]/pharmacy #1972, 160.02, cm, 09/07/21 10:18:00 EST, Height,... Start Date: 09/07/21 Stop Date: 09/02/22 Status: Ordered Spiriva Respimat 1.25 mcg/inh inhalation aerosol 2 PUFFS INHALATION ONCE A DAY 30 DAYS Start Date: 05/05/21 Status: Ordered Spiriva Respimat 1.25 mcg/inh inhalation aerosol 2 puffs, Inhalation, Daily, # 1 each, 11 Refills, Maintenance, 09/07/21 11:12:00 EST, [facility]/pharmacy #1972, Partial fill upon patient [...] Refills, Soft Stop, 10/07/20 9:06:00 EST, [facility]/pharmacy #1972, Partial fill upon patient [...] 17:59:00 EST, Aerosol, Route to Pharmacy Electronically, [id number], [facility], 160... Start Date: 09/08/21 Status: Ordered [...] # 30 capsule, 5 Refills, [facility], 160.02, cm, 07/05/21 10:30:00EST, Height, 85, kg, [...] Active OCD(Confirmed) Active *Joseph Resendez, [facility] [phone](Confirmed) Active Dyan Streeter [facility] 2Case Ppap Coordinator Parish Proctor ([facility]); Psychiatrist - Dr Konstantin Narvaez 3admitted at adult partial hospitalization program (adult intensive short term out-pt psychiatric program). 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 BRCA1/2 negative,seen by genetics 6follow up at [facility] GI - Dr Richey. Multiple endoscopies, all normal. Other diagnosis is Non-ulcer dyspepsia Social History Social History Type Response Smoking Status Never smoker entered on: 02/07/14 Sex Female
--- OUTSIDE RECORDS SUMMARY | 2024-04-05 15:16 | XMS_ITS | Continuity of Care Document ---
Author Organization [facility] Address [address] [place] [address]- Care Team Providers Care Press Manager Name Role Phone Mitch Lopez Primary Care Physician [facility] Date[facility]s): 01/19/22 - 02/18/[address] [address] Attending Physician: AdmJana leonardo Admitting Physician: AdmtrJana Referring Physician: Admtr, Ar8 Allergies, Adverse Reactions, [...] Gi mikaela influenza virus vaccine, inactivated 5 10/19/11 Gi mikaela influenza virus vaccine, inactivated 6 [...] Given Patient Refuses 1Admin Note: Administered at [facility] on [facility] in [place]. 2Location History: [facility] 3Result Comment: [06/27/2014] PT HAD AT [facility] 4Admin Note: VIS GIVEN VIS DATE 01/30/2012 5Admin Note: flulaval vis given vis date 02/22/2011 6Admin Note: vis given 03/09/10 7Result Comment: Received at [facility] on [facility] 8Admin Note: VIS given 9Admin [...] # 120 tablet, 2 Refills, [facility], 160, cm, 11/22/21 10:23:00 EDT, Height, 88.2, [...] # 30 tablet, 0 Refills, [facility], 160, cm, 01/20/22 15:38:00 EDT, Height, 88.2, kg, 11/11/21 9:53:00 EDT, Dry Weight Start Date: 02/07/22 Status: Ordered meloxicam 7.5 mg oral tablet 1 tablet, By Mouth, Daily, PRN NEEDED FOR PAIN WITH FOOD, # 30 tablet, 1 Refills, [facility], 160, cm, 01/20/22 15:38:00 EDT, Height, 88.2, [...] 01/03/22 11:58:00 EDT, Route to Pharmacy Electronically, [id number], [facility], 160, cm, 01/03/22 11:03:00 EDT, [...] 11:56:00 EDT, Aerosol, Route to Pharmacy Electronically, [id number], [facility]/pharmacy #1972, 160... Start Date: 01/03/22 Status: Ordered [...] # 30 capsule, 5 Refills, [facility], 160.02, cm, 07/05/21 10:30:00EST, Height, 85, kg, [...] Active *Joseph Resendez, Care Coord avril, ICP [phone](Confirmed) Active 1Jantoinette Streeter [facility] [place] 2Case Trimmer Tailer Parish Esthela ([facility]); Psychiatrist - Dr Konstantin Narvaez 3admitted at adult partial hospitalization program (adult intensive short term out-pt psychiatric program). 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 BRCA1/2 negative,seen by genetics 6follow up at [facility] GI - Dr Richey. Multiple endoscopies, all normal. Other diagnosis is Non-ulcer dyspepsia Social History Social History Type Response Smoking Status Never smoker entered on: 02/07/14 Sex Female
--- OUTSIDE RECORDS SUMMARY | 2024-04-05 15:16 | XMS_ITS | Continuity of Care Document ---
Author Organization [facility] Address [address] [place] [address]- Care Team Providers Care Residential Subcontractor Name Role Phone Mitch Lopez Primary Care Physician [facility] Date[facility]s): 09/06/21 - 11/03/[address] [address] Attending Physician: Mitch Lopez Admitting Physician: Mitch [...] influenza virus vaccine, inactivated 7 05/18/11 Gi mikaeal influenza virus vaccine, inactivated 8 07/08/10 Gi mikaela tetanus/diphtheria/pertussis, acel(Tdap) 04/23/14 Given hepatitis B adult vaccine 9 6/12/13 Given hepatitis B adult vaccine 10 12/11/12 [...] Given Patient Refuses 1Result Comment: Received at [facility] on [facility] [address] 2Admin Note: VIS given 3Admin Note: Administered at [facility] on [facility] in [place]. 4Location History: [facility] 5Result Comment: [06/27/2014] PT HAD AT [facility] 6Admin Note: VIS GIVEN VIS DATE 01/30/2012 [...] 10/14/21 18:29:00 EDT, Route to Pharmacy Electronically, [facility]/pharmacy #1972, Partial fill upon patient request if the prescription is for a sched... Start Date: 10/14/21 Stop Date: 10/19/21 Status: Ordered buPROPion 150 mg/24 hours (XL) oral tablet, extended release TAKE 1 TABLET BY MOUTH EVERY DAY Start Date: 05/05/21 Status: Ordered [facility] MELATONIN 3 MG TABLET [facility] MELATONIN 3 MG TABLET, 1, tablet, By Mouth, Daily at bedtime, # 30 tablet, 2 Refills, Maintenance, 02/17/21 19:34:00 EDT, 160.02, cm, 02/16/21 17:20:00 EDT, Height, 88.8, kg, 11/24/20 15:58:00 EDT, Dry Weight Start Date: 02/17/21 Status: Ordered Estrace Vaginal Cream 0.1 mg/g = 1 Gm, Vaginally, Every Monday and , # 42.5 Gm, 2 Refills, Maintenance, 09/08/20 14:57:00EST, [facility]/pharmacy #1972, 160.02, cm, 07/29/20 16:36:00 EST, [...] A DAY, # 120 tablet, 2 Refills, [facility], 160.02, cm, 07/05/21 10:30:00 EST, Height, 85, kg, 03/11/21 17:07:00 EDT, Dry Weight Start Date: 08/22/21 Status: Ordered meloxicam 7.5 mg oral tablet 1 tablet, By Mouth, Daily, FOR ARTHRITIS PAIN. TAKE WITH FOOD, # 30 tablet, 1 Refills, [facility], 160.02, cm, 09/16/21 14:31:00 EST, Height, 85, [...] 09/07/21 11:12:00 EST, Route to Pharmacy Electronically, [id number], [facility]/pharmacy #1972, 160.02, cm, 09/07/21 10:18:00 EST, Height,... Start Date: 09/07/21 Stop Date: 09/02/22 Status: Ordered Spiriva Respimat 1.25 mcg/inh inhalation aerosol 2 PUFFS INHALATION ONCE A DAY 30 DAYS Start Date: 05/05/21 Status: Ordered Spiriva Respimat 1.25 mcg/inh inhalation aerosol 2 puffs, Inhalation, Daily, # 1 each, 11 Refills, Maintenance, 09/07/21 11:12:00 EST, [facility]/pharmacy #1972, Partial fill upon [...] 1 Refills, Soft Stop, 10/07/20 9:06:00 EST, [facility]/pharmacy #1972, Partial fill upon [...] 17:59:00 EST, Aerosol, Route to Pharmacy Electronically, [id number], [facility]/pharmacy #1972, 160... Start Date: 09/08/21 Status: Ordered [...] # 30 capsule, 5 Refills, [facility], 160.02, cm, 07/05/21 10:30:00EST, Height, 85, kg, [...] Active OCD(Confirmed) Active *[facility], [facility] [phone](Confirmed) Active Dyan Streeter [facility] [place] 2Case Press Manager Parish Proctor ([facility]); Psychiatrist - Dr Konstantin Narvaez 3admitted at adult partial hospitalization program (adult intensive short term out-pt psychiatric program). 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 BRCA1/2 negative,seen by genetics 6follow up at [facility] GI - Dr Richey. Multiple endoscopies, all normal. Other diagnosis is Non-ulcer dyspepsia Social History Social History Type Response Smoking Status Never smoker entered on: 02/07/14 Sex Female
--- OUTSIDE RECORDS SUMMARY | 2024-04-05 15:16 | XMS_ITS | Continuity of Care Document ---
Author Organization [facility] Address [address] [place] [address]- Care Team Providers Care Emergency Department Physician Name Role Phone Mitch Lopez Primary Care Physician Encounter [facility] Date(s): 11/08/21 - 11/15/21 [facility] [address], [place] [address] Attending Physician: Bakari Rollins DO Referring Physician: [...] Given Patient Refuses 1Result Comment: Received at [facility] on [facility] [address] 2Admin Note: VIS given 3Admin Note: Administered at [facility] on [facility] in [place]. 4Location History: [facility] 5Result Comment: [06/27/2014] PT HAD AT [facility] 6Admin Note: VIS GIVEN VIS DATE [...] 10/14/21 18:29:00 EDT, Route to Pharmacy Electronically, [facility]/pharmacy #1972, Partial fill upon patient request if the prescription is for a sched... Start Date: 10/14/21 Stop Date: 10/19/21 Status: Ordered buPROPion 150 mg/24 hours (XL) oral tablet, extended release TAKE 1 TABLET BY MOUTH EVERY DAY Start Date: 05/05/21 Status: Ordered [facility] MELATONIN 3 MG TABLET [facility] MELATONIN 3 MG TABLET, 1, tablet, By Mouth, Daily at bedtime, # 30 tablet, 2 Refills, Maintenance, 02/17/21 19:34:00 EDT, 160.02, cm, 02/16/21 17:20:00 EDT, Height, 88.8, kg, 11/24/20 15:58:00 EDT, Dry Weight Start Date: 02/17/21 Status: Ordered Estrace Vaginal Cream 0.1 mg/g = 1 Gm, Vaginally, Every Monday and , # 42.5 Gm, 2 Refills, Maintenance, 09/08/20 14:57:00EST, [facility]/pharmacy #1972, 160.02, cm, 07/29/20 16:36:00 EST, [...] A DAY, # 120 tablet, 2 Refills, [facility], 160.02, cm, 07/05/21 10:30:00 EST, Height, 85, kg, 03/11/21 17:07:00 EDT, Dry Weight Start Date: 08/22/21 Status: Ordered meloxicam 7.5 mg oral tablet 1 tablet, By Mouth, Daily, FOR ARTHRITIS PAIN. TAKE WITH FOOD, # 30 tablet, 1 Refills, [facility], 160.02, cm, 09/16/21 14:31:00 EST, Height, 85, kg, 03/11/21 17:07:00 EDT, Dry Weight Start Date: 09/30/21 Status: Ordered montelukast 10 mg oral tablet TAKE 1 TABLET BY MOUTH EVERY DAY IN THE EVENING Start Date: 05/05/21 Status: Ordered predniSONE 20 mg oral tablet 2 tablet = 40 mg, By Mouth, Daily, for 5 days, # 10 tablet, 0 Refills, Acute 11/19/21 9:49:00 EDT, 11/14/21 9:49:00 EDT, [facility]/pharmacy #1972, Partial fill upon patient request if the prescription is for a schedule II opioid drug., 160, cm, 11/13/21 15:... Start Date: 11/14/21 Stop Date: 11/19/21 Status: Ordered ProAir HFA 90 mcg/inh inhalation aerosol with adapter 2, puffs, Inhalation, Every 6 hours, PRN, # 1 each, Refills 11, Tot. Refills 11, Maintenance, 09/07/21 11:12:00 EST, Route to Pharmacy Electronically, [id number], [facility]/pharmacy #1972, 160.02, cm, 09/07/21 10:18:00 EST, Height,... Start Date: 09/07/21 Stop Date: 09/02/22 Status: Ordered Spiriva Respimat 1.25 mcg/inh inhalation aerosol 2 PUFFS INHALATION ONCE A DAY 30 DAYS Start Date: 05/05/21 Status: Ordered Spiriva Respimat 1.25 mcg/inh inhalation aerosol 2 puffs, Inhalation, Daily, # 1 each, 11 Refills, Maintenance, 09/07/21 11:12:00 EST, [facility]/pharmacy #1972, Partial fill upon patient [...] 1 Refills, Soft Stop, 10/07/20 9:06:00 EST, [facility]/pharmacy #1972, Partial fill upon patient [...] 17:59:00 EST, Aerosol, Route to Pharmacy Electronically, [id number], [facility]/pharmacy #1972, 160... Start Date: 09/08/21 Status: Ordered Tessalon Perles 100 mg oral capsule 1 capsule = 100 mg, By Mouth, 3 times a day, PRN Cough, # 20 capsule, 0 Refills, Maintenance, 09/16/21 15:25:00 EST, [facility]/pharmacy #1972, Partial fill upon patient request if the prescription is for aschedule II opioid drug., 160.02, cm, 09/16/21 14:3... Start Date: 09/16/21 Status: Ordered verapamil 180 mg oral capsule, extended release 1 capsule, By Mouth, Daily, # 30 capsule, 5 Refills, [facility], 160.02, cm, 07/05/21 10:30:00EST, Height, 85, kg, [...] Active *Joseph Resendez, Care Coord inadavid, ICP [phone](Confirmed) Active 1Jantoinette Streeter [facility] [place] 2Case Agricultural Sciences Professor Parish Proctor ([facility]); Psychiatrist - Dr Konstantin Narvaez [...] oldest [Reference Range]: 1 Height 160.02 cm (11/08/21 6:21 PM) Oxygen Saturation [94-100 %] 100 % (11/08/21 6:21 PM) Pulse Rate [55-90 bpm] 77 bpm (11/08/21 6:21 PM) Blood Pressure [90-138/55-84 mm Hg] 152/ 108mm Hg *H* (11/08/21 6:21 PM) Temperature [96.8-100.4 DegF] 98.1 DegF (11/08/21 6:21 PM) Mode of Delivery (Oxygen) Room air (11/08/21 6:21 PM) Blood pressure sites Arm, right (11/08/21 6:21 PM) Temperature Route Temporal (11/08/21 6:21 PM) Social History Social History Type Response Smoking Status Never smoker entered on: 02/07/14 Sex Female
--- OUTSIDE RECORDS SUMMARY | 2024-04-05 15:16 | XMS_ITS | Continuity of Care Document ---
Author Organization [facility] Address [address] [place] [address]- Care Team Providers Care Concrete Mixing Truck Driver Name Role Phone Mitch Lopez Primary Care Physician [phone] [facility]counter [facility] Date[facility]s): 02/28/22 - 04/30/22 [facility] [address] [place] [address]- Attending Physician: Mitch Lopez Admitting Physician: Mitch [...] Gi mikaela Influenza Virus Vaccine (oldterm) 7 9/30/20 Recor ded Influenza Virus Vaccine (oldterm) 8 [...] Given Patient Refuses 1Admin Note: Administered at [facility] on [facility] in [place]. 2Location History: [facility] 3Result Comment: [06/27/2014] PT HAD AT [facility] 4Admin Note: VIS GIVEN VIS DATE 01/30/2012 5Admin Note: flulaval vis given vis date 02/22/2011 6Admin Note: vis given 03/09/10 7Result Comment: Received at [facility] on [facility] 8Admin Note: VIS given 9Admin Note: [...] tablet, 0 Refills, Maintenance, 04/15/22 16:54:00 EDT, [facility]/pharmacy #1972, Partial fill upon patient request if [...] Ordered nabumetone 500 mg oral tablet 1 tablet = 500 mg, By Mouth, 2 times a day, for pain take with food, # 60 tablet, 0 Refills, Maintenance, 04/15/22 16:53:00 EDT, [facility], Partial fill upon patient request if the prescription is for a schedule II opioid drug., 160, cm, ... Start Date: 04/15/22 Status: Ordered Premarin 0.3 mg oral tablet 1 tablet = 0.3 mg, By Mouth, Daily, # 30 tablet, 3 Refills, Maintenance, 03/28/22 16:11:00 EDT, [facility], Partial fill upon patient request if the prescription is for a schedule II opioid drug., 160, cm, 03/15/22 14:14:00 EDT, Height, 88.2,... Start Date: 03/28/22 Status: Ordered ProAir HFA 90 mcg/inh inhalation aerosol with adapter 2, puffs, Inhalation, Every 6 hours, PRN, # 1 each, Refills 11, Tot. Refills 11, Maintenance, 01/03/22 11:58:00 EDT, Route to Pharmacy Electronically, [id number], [facility], 160, cm, 01/03/22 11:03:00 EDT, [...] each, 11 Refills, Maintenance, 01/03/22 11:57:00 EDT, [facility]/pharmacy #1972, Partial fill upon patient request if [...] 11:56:00 EDT, Aerosol, Route to Pharmacy Electronically, [id number], [facility]/pharmacy #1972, 160... Start Date: 01/03/22 Status: Ordered terazosin 2 mg oral capsule 1, capsule, By Mouth, Daily at bedtime, INSTR:CONTINUE TAKING TILL STONE EXPULSION OR TILL 4 WEEKS AND THEN DISCONTINUE., # 30 capsule, Refills 0, Maintenance, 03/28/22 14:40:00 EDT, Route to Pharmacy Electronically, [facility] 277[facility], 160, cm, 03/15/22... Start Date: 03/28/22 Status: [...] Mouth, Daily, # 30 capsule, 5 Refills, [facility] 10880, 160.02, cm, 07/05/21 10:30:00EST, Height, 85, kg, [...] Confirmed Active OCD Confirmed Active *Joseph Resendez, Medical Language Specialist, ICP [phone] Confirmed Active 1Jantoinette Streeter [facility] [place] 2Case Level Vial Grinder Parish Proctor ([facility]); Psychiatrist - Dr Konstantin Narvaez 3admitted at adult partial hospitalization program (adult intensive short term out-pt psychiatric program). 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 BRCA1/2 negative,seen by genetics 6follow up at [facility] GI - Dr Richey. Multiple endoscopies, all normal. Other diagnosis is Non-ulcer dyspepsia Social History Social History Type Response Smoking Status Never smoker entered on: 02/07/14 Sex Female Patient Care team information Personnel Name: Mitch Lopez Address: Address: [address] [place] [address]
--- OUTSIDE RECORDS SUMMARY | 2024-04-05 15:16 | XMS_ITS | Continuity of Care Document ---
Author Organization [facility] Address [address] [place] [address]- Care Team Providers Care Hotel Maid Name Role Phone Mitch Lopez Primary Care Physician Encounter [facility] Date(s): 01/21/24 - 02/29/[address] [address] Attending Physician: Mitch Lopez Admitting Physician: Mitch [...] 18 07/18/06 Given 1Admin Note: Administered at [facility] on [facility] in [place]. 2Location History: [facility] pharmacy 3Result Comment: [06/27/2014] PT HAD AT [facility] 4Admin Note: VIS GIVEN VIS DATE 01/30/2012 5Admin Note: flulaval vis given vis date 02/22/2011 6Admin Note: vis given 03/09/10 7Result Comment: Received at [facility] on [facility] 8Admin Note: VIS given 9Admin Note: 2nd [...] each, 11 Refills, Maintenance, 10/23/23 12:15:00 EDT, [facility], Partial fill upon [...] opioid drug. Start Date: 09/14/22 Status: Ordered [facility] MELATONIN 3 MG TABLET [facility] MELATONIN 3 MG TABLET, 1, [...] 180 tablet, 0 Refills, Maintenance,01/19/24 9:05:00 EDT, [facility] STORE 81614, 161, cm, 01/16/24 16:04:00 EDT, Height, 82.1, [...] 12/14/23 15:09:00 EDT, Route to Pharmacy Electronically, [facility], Partial fill upon patien... Start Date: 12/14/23 Status: Ordered nabumetone 500 mg oral tablet 1 tablet, By Mouth, 2 times a day, TAKE WITH FOOD., # 60 tablet, 0 Refills, Maintenance, 03/31/23 18:55:00 EDT, [facility] STORE 63512, 161, cm, 03/29/23 14:07:00 EDT, Height, 85, [...] Refills, Maintenance, 02/13/24 9:40:00 EDT, [facility], 161, cm, 01/16/24 16:04:00 EDT, Height, 82.1, [...] Confirmed Active OCD Confirmed Active *Joseph Resendez, Recycling Coordinator, ICP [phone] Confirmed Active 1Jantoinette Streeter [facility] [place] 2Case Kayak Maker Parish Proctor ([facility]); Psychiatrist - [...] Associate Professional Member Role: PCP Address: Address: [address] [place] [address] [place] [address]- Care Team Related Persons Name: GABINO CASTANEDA Address: home [address] [place] [address] Name: JERROD BEAUCHAMP Address: home [place] Name: BRE MIRANDA Address: home [address] [place] [id number] Name: ALEYDA BEE Address: [address] [address] Name: ALEYDA BEE Address: home [address] [place] [address] Name: ROMIE PUENTSE Address: home [address] [place] [address]
--- OUTSIDE RECORDS SUMMARY | 2024-04-05 15:16 | XMS_ITS | Continuity of Care Document ---
Author Organization [facility] Adult Medicine Address [address] [place] [address]- Care Team Providers Care Project Economist Name Role Phone Mitch Lopez Primary Care Physician [phone] [facility] 04/28/21 - 05/28/21 [facility] [address] [place] [address]- Allergies, Adverse Reactions, Alerts Substance Reaction Severity [...] Given Patient Refuses 1Result Comment: Received at [facility] on [address] 2Admin Note: VIS given 3Admin Note: Administered at [facility] on [address] in [place]. 4Location History: [facility] 5Result Comment: [06/27/2014] PT HAD AT [facility] 6Admin Note: VIS GIVEN VIS [...] 1 each, 0 Refills, 04/14/21 19:19:00 EDT, [facility]/pharmacy #1972, INHALE 2 PUFFS EVERY 6 HOURS NEEDED FOR WHEEZING/SHORTNESS OF BREATH, 160.02, cm, 04/14/21 14... Start Date: 04/14/21 Status: Ordered Azithromycin 5 Day Dose Pack 250 mg oral tablet See Instructions, as directed on package labeling, # 6 tablet, 0 Refills, Maintenance, 05/05/21 9:14:00 EDT, [facility]/pharmacy #1972, Partial fill upon patient request if the prescription is for a schedule II opioid drug., 160.02, cm, 05/05/21 7:58:00 EDT,... Start Date: 05/05/21 Status: Ordered baclofen 10 mg oral tablet 10 mg, 1, tablet, By Mouth, 3 times a day, for 5 days, Begin taking at nighttime, if tolerated can take 3 times a day. No operating heavy machinery, # 15 tablet, Refills 0, Tot. Refills 0, Acute 05/31/21 16:01:00 EDT, 05/26/21 16:01:00 EDT, Route to... Start Date: 05/26/21 Stop Date: 05/31/21 Status: Ordered buPROPion 150 mg/24 hours (XL) [...] Dry Weight Start Date: 02/17/21 Status: Ordered diclofenac potassium 50 mg oral tablet 1 tablet = 50 mg, By Mouth, 3 times a day, PRN as needed for pain, for 14 days, # 42 tablet, 0 Refills, Acute 06/09/21 16:02:00 EST, 05/26/21 16:02:00 EDT, Tablet, [facility]/pharmacy #1972, Partial fill upon patient request if the prescription is for a sche... Start Date: 05/26/21 Stop Date: 06/09/21 Status: Ordered Estrace Vaginal Cream 0.1 mg/g = 1 Gm, Vaginally, Every Monday and , # 42.5 Gm, 2 Refills, Maintenance, 09/08/20 14:57:00EST, [facility]/pharmacy #1972, 160.02, cm, 07/29/20 [...] 0 Refills, Maintenance, 03/08/21 18:54:00 EDT, Tablet, [facility]/pharmacy #1972, Partial fill upon patient request if the prescription is for a schedule II opioid drug., 160.02, cm, 03/08/21 18:21:00... Start Date: 03/08/21 Stop Date: 03/22/21 Status: Ordered ProAir HFA 90 mcg/inh inhalation aerosol with adapter 2, puffs, Inhalation, Every 6 hours, PRN, # 1 each, Refills 5, Tot. Refills 5, Maintenance, 05/19/20 16:20:00 EDT, Route to Pharmacy Electronically, [id number], [facility]/pharmacy#1972, 160.02, cm, 04/28/20 13:40:00 EDT, Height, 9... Start Date: 05/19/20 Stop Date: 11/15/20 Status: Ordered ProAir HFA 90 mcg/inh inhalation aerosol with adapter 2, puffs, Inhalation, Every 6 hours, PRN, # 1 each, Refills 5, Tot. Refills 5, Maintenance, 06/16/20 18:28:00 EST, Route to Pharmacy Electronically, [id number], [facility]/pharmacy#1972, 160.02, cm, 05/27/20 13:10:00 [...] 1 Refills, Soft Stop, 10/07/20 9:06:00 EST, [facility]/pharmacy #1972, Partial fill upon patient request if the prescription is for a schedule II opioid drug., 160.... Start Date: 10/07/20 Status: Ordered Symbicort 160mcg/4.5mcg Inhaler INHALE 2 PUFFS TWICE A DAY Start Date: 05/05/21 Status: Ordered verapamil 180 mg oral capsule, extended release 1 capsule, By Mouth, Daily, # 30 capsule, 5 Refills, Maintenance, 02/04/21 9:28:00 EDT, [facility], 160.02, cm, 01/26/21 9:12:00 EDT, Height, 88.8, [...] Active OCD(Confirmed) Active *Joseph Resendez, [facility] Coord [facility], [facility] [phone](Confirmed) Active 1Jantoinette Streeter [facility] Psychiatry [place] 2Case Business Account Executive Parish Proctor ([facility]); Psychiatrist - Dr Konstantin [...] BRCA1/2 negative,seen by genetics 6follow up at [facility] GI - Dr Richey. Multiple endoscopies, all normal. Other diagnosis is Non-ulcer dyspepsia Social History Social History Type Response Smoking Status Never smoker entered on: 02/07/14 Sex Female
--- OUTSIDE RECORDS SUMMARY | 2024-04-05 15:17 | XMS_ITS | Continuity of Care Document ---
Author Organization [facility] Adult [facility] Address [address] [place] [address]- Care Team Providers Care Speech Pathology Teacher Name Role Phone Mitch Lopez Primary Care Physician [phone] [facility] Date[facility] 01/22/24 - 02/21/24 [facility] [address] [facility] [address] [place], [place] [phone] Allergies, Adverse Reactions, Alerts Substance Reaction Severity Status trimethoprim Urticaria Active Compazine unknown Active Bactrim bruising Active prochlorperazine Unknown Active sulfa drugs Breathing problem Active Motrin Breathing problem GI upset Active Immunizations Given and Recorded Vaccine Date [...] 18 07/18/06 Given 1Admin Note: Administered at [facility] on [facility] in [place]. 2Location History: [facility] 3Result Comment: [06/27/2014] PT HAD AT [facility] 4Admin Note: VIS GIVEN VIS DATE 01/30/2012 5Admin Note: flulaval vis given vis date 02/22/2011 6Admin Note: vis given 03/09/10 7Result Comment: Received at [facility] on [facility] 8Admin Note: VIS given 9Admin Note: [...] each, 11 Refills, Maintenance, 10/23/23 12:15:00 EDT, [facility]/pharmacy #1972, Partial fill upon [...] opioid drug. Start Date: 09/14/22 Status: Ordered [facility] MELATONIN 3 MG TABLET [facility] MELATONIN 3 [...] Gm, 3 Refills, Maintenance, 08/28/23 14:07:00 EST, [facility]/pharmacy #1972, 25, 1 application Topically 4 times a day,PRN: NEEDED,Instr:MODERATE PAIN., 161, cm, 08/16/23 11:00:... Start Date: 08/28/23 Status: Ordered hydrOXYzine hydrochloride 25 mg oral tablet 1 tablet, By Mouth, 2 times a day, PRN NEEDED FOR ANXIETY, # 180 tablet, 0 Refills, Maintenance,01/19/24 9:05:00 EDT, [facility] 81991, 161, cm, 01/16/24 16:04:00 EDT, Height, 82.1, [...] 12/14/23 15:09:00 EDT, Route to Pharmacy Electronically, [facility]/pharmacy #1972, Partial fill upon patien... Start Date: 12/14/23 Status: Ordered nabumetone 500 mg oral tablet 1 tablet, By Mouth, 2 times a day, TAKE WITH FOOD., # 60 tablet, 0 Refills, Maintenance, 03/31/23 18:55:00 EDT, [facility] ST[facility] 390[facility], 161, cm, 03/29/23 14:07:00 EDT, Height, 85, [...] Refills, Maintenance, 02/13/24 9:40:00 EDT, [facility], 161, cm, 01/16/24 16:04:00 EDT, Height, 82.1, [...] Confirmed Active OCD Confirmed Active *Joseph Resendez, Tactical/Mobile Watch Officer, ICP [phone] Confirmed Active 1Jantoinette Streeter [facility] Psychiatry [place] 2Case Circuitry Negative Inspector Parish Proctor ([facility]); Psychiatrist - Dr Konstantin Narvaez 3admitted at adult partial hospitalization program (adult intensive short term out-pt psychiatric program). 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 BRCA1/2 negative,seen by genetics 6follow up at [facility] GI - Dr Richey. Multiple endoscopies, all normal. Other diagnosis is Non-ulcer dyspepsia Social History Social History Type Response Smoking Status Never smoker entered on: 02/07/14 Sex Female Patient Care team information Care Team Personnel Name: Mitch Lopez Position: S PCO Associate Professional Member Role: PCP Address: Address: [address] [place] [address] [place] [address]- Care Team Related Persons Name: GABINO CASTANEDA Address: home [address] [place] [address] Name: JERROD BEAUCHAMP Address: [place], [place] Name: BRE MIRANDA Address: home [address] [place] [address] Name: ALEYDA BEE Address: home [address] [place] [address] Name: ALEYDA BEE Address: [address] [place] [address] Name: ROMIE PUENTES Address: home [address] [place] [address]
--- OUTSIDE RECORDS SUMMARY | 2024-04-05 15:17 | XMS_ITS | Continuity of Care Document ---
Author Organization [facility] Adult [facility] Address [address] [place] [address]- Care Team Providers Care Bridal Sales Consultant Name Role Phone Mitch Lopez Primary Care Physician [facility] 12[facility]14/23 - 01/13/24 [facility] [address] [facility] [address] [place], [place] [phone] Encounter Diagnosis Chronic back pain(Discharge Diagnosis) - 06/22/19 Attending Physician: AdmtrJana Allergies, Adverse Reactions, Alerts Substance Reaction Severity Status trimethoprim Urticaria Active sulfa drugs Breathing problem Active Bactrim bruising Active prochlorperazine Unknown Active Motrin Breathing problem GI upset Active [...] 18 07/18/06 Given 1Admin Note: Administered at [facility] on [facility] in [place]. 2Location History: [facility] 3Result Comment: [06/27/2014] PT HAD AT [facility] 4Admin Note: VIS GIVEN VIS DATE 01/30/2012 5Admin Note: flulaval vis given vis date 02/22/2011 6Admin Note: vis given 03/09/10 7Result Comment: Received at [facility] on [facility] 8Admin Note: VIS given 9Admin [...] ANXIETY, # 60 tablet, 2 Refills, Maintenance, 10/17/23 11:01:00 EDT, [facility] STORE 78638, 161, cm, 09/29/23 11:18:00 EST, Height, 82.1, kg, 08/05/23 8:10:00 EST, Dry Weight Start Date: 10/17/23 Status: Ordered Lidoderm 5% film 1 patch, [...] tablet, 0 Refills, Maintenance, 03/31/23 18:55:00 EDT, [facility] STORE 02313, 161, cm, 03/29/23 14:07:00 EDT, Height, 85, [...] Daily, # 90 capsule, 1 Refills, Maintenance, 09/08/23 10:49:00 EST, [facility], 161, cm, 08/16/23 11:00:00 EST, Height, 82.1, kg, 08/05/23 8:10:00 EST, Dry Weight Start Date: 09/08/23 Status: Ordered ZyrTEC 10 mg oral tablet 1 tablet = 10 mg, By Mouth, Daily at bedtime, # 30 tablet, 5 Refills, Maintenance, 12/14/23 15:08:00 EDT, Tablet, [facility], Partial fill upon patient request if the prescription is for a schedule II opioid drug., 161, cm, 12/14/23 15:02:00 E... Start Date: 12/14/23 Status: Ordered Problem List Condition Confirmation Course Effective Dates Status [facility] atus Informant Asthma Confirmed 07/05/05 Active Bipolar disorder 1, 2, 3 Confirmed Active Chronic back pain Confirmed 07/05/05 Active Gastric nodule 4 Confirmed Active H/O ovarian cancer 5 Confirmed Active Hiatal hernia Confirmed Active Hysterectomy Confirmed Active Irritable bowel syndrome 6 Confirmed Active Kidney stone Confirmed Active Chronic migraine Confirmed Active OCD Confirmed Active *Joseph Resendez, Completion Manager, ICP [phone] Confirmed Active 1Jantoinette Streeter [facility] Psychiatry [place] 2Case Development Expert Parish Proctor ([facility]); Psychiatrist - Dr Konstantin Narvaez 3admitted at adult partial hospitalization program (adult intensive short term out-pt psychiatric program). 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 BRCA1/2 negative,seen by genetics 6follow up at [facility] GI - Dr Richey. Multiple endoscopies, all normal. Other diagnosis is Non-ulcer dyspepsia Diagnosis Diagnosis Type Effective Dates Health Status inical Service Informant Chronic back pain Discharge Diagnosis 06/22/19 Social History Social History Type Response Smoking Status Never smoker entered on: 02/07/14 Sex Female Laboratory * Event Display: Non Lab Results Authored Date: Radiology * Event Display: MRI Knee, Non- BH Authored Date: * Event Display: X-Ray Shoulder, Non- BH Authored Date: * Event Display: X-Ray Shoulder, Non- BH Authored Date: * Event Display: MRI Knee Authored Date: * Sadie Lozano: PERFORM Event Display: Radiology Results Scanned Authored Date: Patient Care team information Care Team Personnel Name: Mitch Lopez Position: [facility] PCO Associate Professional Member Role: PCP Address: Address: [address] [place] [address] Care Team Related Persons Name: GABINO CASTANEDA Address: [address] [place] [address] Name: JERROD BEAUCHAMP Address: [place], [place] Name: BRE MIRANDA Address: home [address] [place] [id number] Name: ALEYDA BEE Address: home [address] [place] [address] Name: ALEYDA BEE Address: home [address] [place] [address] Name: ROMIE PUENTES Address: home [address] [place] [address]
--- OUTSIDE RECORDS SUMMARY | 2024-04-05 15:17 | XMS_ITS | Continuity of Care Document ---
Author Organization [facility] Adult Medicine Address [address] [place] [address]- Care Team Providers Care Stone Sawyer Name Role Phone Mitch Lopez Primary Care Physician [facility] Date(s): 06/28/21 - 07/28/21 [facility] Adult [facility] [address] [place], [place] [address] Allergies, Adverse Reactions, Alerts Substance Reaction [...] inactive(oldterm) 13 10/15/09 Given FluLaval (oldterm) 14 10/16/09 Given diphtheria-tetanus toxoids (DT) 15 12/10/08 Given Influenza Inactive (IM) (oldterm) 16 06/18/08 Give n Influenza Vaccine (oldterm) 17 05/23/07 Given Pneumococcal Vacc (oldterm) 18 07/18/06 Given Not Given Vaccine Date Status Refusal Reason pneumococcal 23-valent vaccine 10/13/13 Not Given Patient Refuses 1Result Comment: Received at [facility] on [address] [facility] [address] 2Admin Note: VIS given 3Admin Note: Administered at [facility] on [address] in [place]. 4Location History: [facility] pharmacy 5Result Comment: [06/27/2014] PT HAD AT [facility] 6Admin Note: VIS GIVEN VIS DATE 01/30/2012 [...] 1 each, 0 Refills, 04/14/21 19:19:00 EDT, [facility]/pharmacy #1972, INHALE 2 PUFFS EVERY 6 HOURS NEEDED FOR WHEEZING/SHORTNESS OF BREATH, 160.02, cm, 04/14/21 14... Start Date: 04/14/21 Status: Ordered Azithromycin 5 Day Dose Pack 250 mg oral tablet See Instructions, as directed on package labeling, # 6 tablet, 0 Refills, Maintenance, 05/05/21 9:14:00 EDT, [facility]/pharmacy #1972, Partial fill upon patient request if the prescription is for a schedule II opioid drug., 160.02, cm, 05/05/21 7:58:00 EDT,... Start Date: 05/05/21 Status: Ordered baclofen 10 mg oral tablet 10 mg, 1, tablet, By Mouth, 3 times a day, PRN, Do not operate heavy machinery while on medication,# 15 tablet, Refills 0, Tot. Refills 0, Maintenance, Spasm, 06/01/21 18:02:00 EDT, Route to Pharmacy Electronically, [facility]/pharmacy #1972, Partial fill u... Start Date: 06/01/21 Stop Date: 06/06/21 Status: Ordered buPROPion 150 mg/24 hours (XL) [...] 42.5 Gm, 2 Refills, Maintenance, 09/08/20 14:57:00EST, [facility]/pharmacy #1972, 160.02, cm, 07/29/20 16:36:00 [...] 0 Refills, Maintenance, 03/08/21 18:54:00 EDT, Tablet, [facility]/pharmacy #1972, Partial fill upon patient request if the prescription is for a schedule II opioid drug., 160.02, cm, 03/08/21 18:21:00... Start Date: 03/08/21 Stop Date: 03/22/21 Status: Ordered ProAir HFA 90 mcg/inh inhalation aerosol with adapter 2, puffs, Inhalation, Every 6 hours, PRN, # 1 each, Refills 5, Tot. Refills 5, Maintenance, 06/28/21 16:04:00 EST, Route to Pharmacy Electronically, [id number], [facility]/pharmacy#1972, 160.02, cm, 06/08/21 8:42:00 EST, Height, 85... Start Date: 06/28/21 Stop Date: 12/25/21 Status: Ordered ProAir HFA 90 mcg/inh inhalation aerosol with adapter 2, puffs, Inhalation, Every 6 hours, PRN, # 1 each, Refills 5, Tot. Refills 5, Maintenance, 05/19/20 16:20:00 EDT, Route to Pharmacy Electronically, [id number], [facility]/pharmacy#1972, 160.02, cm, 04/28/20 13:40:00 EDT, Height, 9... Start Date: 05/19/20 Stop Date: 11/15/20 Status: Ordered Spiriva Respimat 1.25 mcg/inh inhalation [...] Refills, Maintenance, 02/04/21 9:28:00 EDT, [facility], 160.02, cm, 01/26/21 9:12:00 EDT, Height, 88.8, [...] Active *Joseph Resendez, Care Coord inator, ICP [phone](Confirmed) Active 1Jantoinette Streeter [facility] Psychiatry [place] 2Case Forming Department End Finder Parish Proctor ([facility]); Psychiatrist - Dr Konstantin Narvaez 3admitted at adult partial hospitalization program (adult intensive short term out-pt psychiatric program). 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 BRCA1/2 negative,seen by genetics 6follow up at [facility] GI - Dr Richey. Multiple endoscopies, all normal. Other diagnosis is Non-ulcer dyspepsia Social History Social History Type Response Smoking Status Never smoker entered on: 02/07/14 Sex Female
--- OUTSIDE RECORDS SUMMARY | 2024-04-05 15:17 | XMS_ITS | Continuity of Care Document ---
Author Organization [facility] Address [address] [place] [address]- Care Team Providers Care Marketing Services Manager Name Role Phone Mitch Lopez Primary Care Physician Encounter [facility] Date(s): 08/08/20 - 08/15/20 [facility] [address] [place] [address]- Encounter Diagnosis Seasonal allergies(Discharge Diagnosis) - 08/08/20 Attending Physician: Wu Taylor MD Referring Physician: Mitch Lopez Allergies, Adverse [...] Given Patient Refuses 1Result Comment: Received at [facility] on [address] 2Admin Note: VIS given 3Admin Note: Administered at [facility] on [address] in [place]. 4Location History: [facility] pharmacy 5Result Comment: [06/27/2014] PT HAD AT [facility] 6Admin Note: VIS GIVEN VIS [...] Gm, 2 Refills, Maintenance, 03/04/20 12:12:00 EDT, [facility]/pharmacy #1972, 160.02, cm, 03/04/20 11:50:00 EDT, Height, 93.1, kg, 03/04/20 11:50:00 EDT, Dry Weight Start Date: 03/04/20 Status: Ordered Flonase 50 mcg/inh nasal spray 1 sprays, Nares, Both, 2 times a day, # 16 Gm, 0 Refills, Maintenance, 08/08/20 15:21:00 EST, [place], Partial fill upon patient request [...] tablet, 2 Refills, Maintenance, 07/29/20 17:21:00 EST, [facility]/pharmacy #1972, Partial fill upon patient request if the prescription is for a schedule II opioid drug.... Start Date: 07/29/20 Status: Ordered ibuprofen 600 mg oral tablet 600 mg, 1, tablet, By Mouth, 4 times a day, PRN, # 40 tablet, Refills 0, Tot. Refills 0, Maintenance, for pain, 07/15/20 20:01:00 EST, Route to Pharmacy Electronically, [facility]/pharmacy #1972, Partial fill upon patient request if the prescription is for a... Start Date: 07/15/20 Status: Ordered melatonin 3 mg oral tablet 1 tablet = 3 mg, By Mouth, Daily at bedtime, for 30 days, to help with sleep., # 30 tablet, 1 Refills, Acute 09/27/20 17:22:00 EST, 07/29/20 17:22:00 EST, [facility], Partial fill upon patient [...] 05/19/20 16:20:00 EDT, Route to Pharmacy Electronically, [id number], [facility]/pharmacy#1972, 160.02, cm, 04/28/20 13:40:00 EDT, Height, 9... Start Date: 05/19/20 Stop Date: 11/15/20 Status: Ordered ProAir HFA 90 mcg/inh inhalation aerosol with adapter 2, puffs, Inhalation, Every 6 hours, PRN, # 1 each, Refills 5, Tot. Refills 5, Maintenance, 06/16/20 18:28:00 EST, Route to Pharmacy Electronically, [id number], [facility]/pharmacy#1972, 160.02, cm, 05/27/20 13:10:00 EDT, Height, [...] 30 capsule, 11 Refills, Maintenance, [facility], 160.02, cm, 10/11/19 15:24:00 EDT, Height, 85.91, [...] Active OCD(Confirmed) Active *Joseph Resendez, [place] [facility] [phone](Confirmed) Active Dyan Streeter [facility] Psychiatry [place] 2Case Sed Special Education Teacher Parish Proctor ([facility]); Psychiatrist - Dr Konstantin Narvaez 3admitted at adult partial hospitalization program (adult intensive short term out-pt psychiatric program). 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 BRCA1/2 negative,seen by genetics 6follow up at [facility] GI - Dr Richey. Multiple endoscopies, all normal. Other diagnosis is Non-ulcer dyspepsia Diagnosis Diagnosis Type Effective Dates Health Status Cl inical Service Informant Seasonal allergies Discharge Diagnosis 08/08/20 Social History Social History Type Response Smoking Status Never smoker entered on: 02/07/14 Sex Female
--- OUTSIDE RECORDS SUMMARY | 2024-04-05 15:17 | XMS_ITS | Continuity of Care Document ---
Author Organization [employer] ter Address [address] [place] [address]- Care Team Providers Care Imaging Administrator Name Role Phone Mitch Lopez Primary Care Physician [facility] Date[facility]): 12/19/19 - 12/19/[address] [address]- [facility] Encounter Diagnosis Chest pain(Final) - 12/19/19 Discharge Disposition: A-D/C Home Attending Physician: Lauren Lim DO Admitting Physician: Lauren Lim DO Referring Physician: Not on Staff, Referring MD [...] Given Patient Refuses 1Admin Note: Administered at [facility] on [facility] in [place]. 2Location History: [facility] pharmacy 3Result Comment: [06/27/2014] PT HAD AT [facility] 4Admin Note: VIS GIVEN VIS [...] 07/25/19 14:29:00 EST, Route to Pharmacy Electronically, [id number], [facility]/pharmacy#1972, 158, cm, 07/25/19 13:55:00 EST, Height, 91.3... [...] DAYS, # 30 capsule, 11 Refills, Maintenance, [facility] ST[facility], 160.02, cm, 10/11/19 15:24:00 EDT, Height, 85.91, [...] Chronic migraine(Confirmed) Active OCD(Confirmed) Active 1Jantoinette Streeter [facility] 2Case Business Loan Processor Parish Proctor ([facility]); Psychiatrist - Dr Konstantin Narvaez [...] Exam Date Time Procedure Performing Provider Status 12/19/19 8:04 PM Chest 2 Views Frontal and Lat Heri Najera (Verified) Notes: (Chest 2 Views Frontal and Lat) Reason For Exam: Cough RESULT: Chest 2 Views Frontal and Lat Chest 2 Views Frontal and Lat INDICATION / CLINICAL QUESTION: Left chest discomfort and tenderness on palpation. COMPARISON: 07/25/2019 FINDINGS: LINES AND TUBES: None. LUNGS AND PLEURA: New linear opacity in the posterior lateral right lung base and lower lateral left lung base likelyrepresent subsegmental atelectasis. No major consolidation. No edema. Normal vascularity. No pleural effusion. No pneumothorax. HEART, MEDIASTINUM AND LUCIO: Normal. BONES AND SOFT TISSUES: No acute abnormality. IMPRESSION: New linear opacities at both lung bases, right slightly worse than left. These probably represent atelectasis rather than pneumonia. Findings discussed Dr. Lim. WSN: [id number] Ordering Physician: Patricio King Dictated By: Nick Jackson MD Dictated Date/Time: 12/19/19 8:11 pm Reviewed By: Nick Jackson MD Signed By: Nick Jackson MD Signed Date/Time: 12/19/19 8:11 pm Transcribed By: LUNA Transcribed Date/Time: 12/19/19 8:06 pm Vital Signs Most recent to oldest [Reference Range]: 1 2 Oxygen Saturation [94-100 %] 100 % (12/19/19 9:10 PM) 99 % (12/19/19 5:08 PM) Pulse Rate [55-90 bpm] 59 bpm (12/19/19 9:10 PM) 90 bpm (12/19/19 5:08 PM) Blood Pressure [90-138/55-84 mm Hg] 153/ 100mm Hg *H* (12/19/19 9:10 PM) 150/94mm Hg *H* (12/19/19 5:08 PM) Respiratory Rate [16-30 br/min] 16 br/mi n (12/19/19 9:10 PM) 18 br/min (12/19/19 5:08 PM) Temperature [96.8-100.4 DegF] 98.2 DegF (12/19/19 9:10 PM) 98.2 DegF (12/19/19 5:08 PM) Mode of Delivery (Oxygen) Room air (12/19/19 9:10 PM) Room air (12/19/19 5:08 PM) Blood pressure sites Arm, right (12/19/19 9:10 PM) Arm, left (12/19/19 5:08 PM) Temperature Route Oral (12/19/19 9:10 PM) Oral (12/19/19 5:08 PM) Social History Social History Type Response Smoking Status Never smoker entered on: 02/07/14 Sex Female
--- OUTSIDE RECORDS SUMMARY | 2024-04-05 15:17 | XMS_ITS | Continuity of Care Document ---
Author Organization [facility] Address [address] [place] [address]- Care Team Providers Care Sales Support Rep Name Role Phone Mitch Lopez Primary Care Physician [phone] Encounter [facility] Date(s): 11/26/19 - 12/03/19 [facility] [address] [place] [address]- [facility] Attending Physician: Mitch Lopez Admitting Physician: Owen Garcia MD Allergies, Adverse Reactions, Alerts Substance Reaction [...] Given Patient Refuses 1Admin Note: Administered at [facility] on [address] in [place]. 2Location History: [facility] pharmacy 3Result Comment: [06/27/2014] PT HAD AT [facility] 4Admin Note: VIS GIVEN VIS DATE [...] EDT, Compound Start Date: 10/16/18 Status: Ordered Fioricet oral capsule 1 capsule, By Mouth, Every 4 hours, PRN as needed, for 14 days, # 30 capsule, 0 Refills, Acute 12/15/19 7:22:00 EDT, 12/01/19 7:22:00 EDT, Capsule, [facility]/pharmacy #1972, 1 capsule By Mouth Every 4 hours,x14 days,PRN:as needed, 160.02, cm, 10/11/19 15:24... Start Date: 12/01/19 Stop Date: 12/15/19 Status: Ordered gabapentin 300 mg oral capsule [...] 07/25/19 14:29:00 EST, Route to Pharmacy Electronically, [id number], [facility]/pharmacy#1972, 158, cm, 07/25/19 13:55:00 EST, [...] 30 capsule, 11 Refills, Maintenance, [facility], 160.02, cm, 10/11/19 15:24:00 EDT, Height, 85.91, [...] stone(Confirmed) Active Chronic migraine(Confirmed) Active OCD(Confirmed) Active Dyan Streeter [facility] 2Case Crayon Grader [place] Proctor ([facility]); Psychiatrist [...] BRCA1/2 negative,seen by genetics 6follow up at [facility] GI - Dr Richey. Multiple endoscopies, all normal. Other diagnosis is Non-ulcer dyspepsia Social History Social History Type Response Smoking Status Never smoker entered on: 02/07/14 Sex Female
--- OUTSIDE RECORDS SUMMARY | 2024-04-05 15:17 | XMS_ITS | Continuity of Care Document ---
Author Organization [facility] Address [address] [place] [address]- Care Team Providers Care Curriculum Designer Name Role Phone Mitch Lopez Primary Care Physician [phone] [facility]counter [facility] Date(s): 12/02/20 - 01/29/21 [facility] [address] [place] [address]- Attending Physician: Mitch Lopez Admitting Physician: Mitch [...] Given Patient Refuses 1Result Comment: Received at [facility] on [address] 2Admin Note: VIS given 3Admin Note: Administered at [facility] on [address] in [place]. 4Location History: [facility] pharmacy 5Result Comment: [06/27/2014] PT HAD AT [facility] 6Admin Note: VIS GIVEN VIS DATE [...] 0 Refills, Maintenance, 12/04/20 17:24:00 EDT, Tablet, [facility]/pharmacy #1972, Partial fill upon patient request [...] Dry Weight Start Date: 09/09/20 Status: Ordered cyclobenzaprine 5 mg oral tablet 1 tablet = 5 mg, By Mouth, 3 times a day, for 5 days, # 15 tablet, 0 Refills, Acute 01/30/21 13:47:00 EDT, 01/25/21 13:47:00 EDT, Tablet, [facility]/pharmacy #1972, Partial fill upon patient request if the prescription is for a schedule II opioid drug., 160.... Start Date: 01/25/21 Stop Date: 01/30/21 Status: Ordered Estrace Vaginal Cream 0.1 mg/g [...] Gm, 0 Refills, Maintenance, 08/08/20 15:21:00 EST, [place], [facility], Partial fill upon patient request [...] tablet, 2 Refills, Maintenance, 11/06/20 17:02:00 EDT, [facility]/pharmacy #1972, Partial fill upon patient request if the prescription is for a schedule II opioid drug.... Start Date: 11/06/20 Status: Ordered ibuprofen 600 mg oral tablet 600 mg, 1, tablet, By Mouth, 4 times a day, PRN, # 40 tablet, Refills 0, Tot. Refills 0, Maintenance, for pain, 07/15/20 20:01:00 EST, Route to Pharmacy Electronically, [facility]/pharmacy #1972, Partial fill upon patient request if the prescription is for a... Start Date: 07/15/20 Status: Ordered lidocaine 5% topical film 1 patch, Topically, Daily, PRN Pain , Mild, remove after 12 hours, # 30 patch, 0 Refills, Maintenance, 12/05/20 21:01:00 EDT, Film, [facility]/pharmacy #1972, Please adjust the concentration as needed for insurance coverage, 1 patch Topically Daily,x7 days,P... Start Date: 12/05/20 Stop Date: 12/12/20 Status: Ordered melatonin 3 mg oral tablet 1 tablet = 3 mg, By Mouth, Daily at bedtime, # 30 tablet, 2 Refills, Maintenance, 10/07/20 9:05:00 EST, [facility]/pharmacy #1972, Partial fill upon patient request if the prescription is for a schedule II opioid drug., 160.02, cm, 10/07/20 8:15:00 EST, [place]... Start Date: 10/07/20 Status: Ordered naproxen 375 mg oral tablet 375 mg, 1, tablet, By Mouth, 2 times a day, for 10 days, for pain. take with food please., # 20 tablet, Refills 0, Tot. Refills 0, Acute 02/04/21 13:48:00 EDT, 01/25/21 13:48:00 EDT, Route to Pharmacy Electronically, [facility]/pharmacy #1972, Partial fill u... Start Date: 01/25/21 Stop Date: 02/04/21 Status: Ordered POISE PADS POISE PADS, See Instructions, # 180 each, Refills 5, Tot. Refills 5, Maintenance, For stress incontinence (N93.3), Cystoscopy (Z98.890)., 02/27/19 14:16:26 EDT, Compound Start Date: 02/27/19 Status: Ordered ProAir HFA 90 mcg/inh inhalation aerosol with adapter 2, puffs, Inhalation, Every 6 hours, PRN, # 1 each, Refills 5, Tot. Refills 5, Maintenance, 05/19/20 16:20:00 EDT, Route to Pharmacy Electronically, [id number], [facility]/pharmacy#1972, 160.02, cm, 04/28/20 13:40:00 EDT, Height, 9... Start Date: 05/19/20 Stop Date: 11/15/20 Status: Ordered ProAir HFA 90 mcg/inh inhalation aerosol with adapter 2, puffs, Inhalation, Every 6 hours, PRN, # 1 each, Refills 5, Tot. Refills 5, Maintenance, 06/16/20 18:28:00 EST, Route to Pharmacy Electronically, [id number], [facility]/pharmacy#1972, 160.02, cm, 05/27/20 13:10:00 EDT, Height, [...] Active OCD(Confirmed) Active *[facility] Resendez, [facility], [facility] [phone](Confirmed) Active 1Jantoinette Streeter [facility] Psychiatry [place] 2Case Wastewater Treatment Plant Operator Parish Proctor ([facility]); Psychiatrist - Dr Konstantin [...] by genetics 6follow up at [facility] GI - Dr Richey. Multiple endoscopies, all normal. Other diagnosis is Non-ulcer dyspepsia Social History Social History Type Response Smoking Status Never smoker entered on: 02/07/14 Sex Female
--- OUTSIDE RECORDS SUMMARY | 2024-04-05 15:17 | XMS_ITS | Continuity of Care Document ---
Author Organization [facility] Address [address] [place] [address]- Care Team Providers Care Core Analysis Operator Name Role Phone Mitch Lopez Primary Care Physician [facility]s): 10/28/21 - 11/27/21 [facility] [address] [place] [address]- Attending Physician: Flakito GARCIA, Sherie Crowley Admitting Physician: Flakito GARCIA, Sherie Crowley Allergies, Adverse Reactions, Alerts Substance Reaction Severity [...] Given Patient Refuses 1Result Comment: Received at [facility] on [address] 2Admin Note: VIS given 3Admin Note: Administered at [facility] on [address] in [place]. 4Location History: [facility] pharmacy 5Result Comment: [06/27/2014] PT HAD AT [facility] 6Admin Note: VIS GIVEN VIS DATE 01/30/2012 [...] 11/22/21 11:19:00 EDT, Route to Pharmacy Electronically, [facility]/pharmacy #1972, Partial fill upon patient request if the prescription is for a... Start Date: 11/22/21 Stop Date: 11/27/21 Status: Ordered buPROPion 150 mg/24 hours (XL) oral tablet, extended release TAKE 1 TABLET BY MOUTH EVERY DAY Start Date: 05/05/21 Status: Ordered [facility] MELATONIN 3 MG TABLET [facility] MELATONIN 3 MG TABLET, 1, tablet, By Mouth, Daily at bedtime, # 30 tablet, 2 Refills, Maintenance, 02/17/21 19:34:00 EDT, 160.02, cm, 02/16/21 17:20:00 EDT, Height, 88.8, kg, 11/24/20 15:58:00 EDT, Dry Weight Start Date: 02/17/21 Status: Ordered Estrace Vaginal Cream 0.1 mg/g = 1 Gm, Vaginally, Every Monday and , # 42.5 Gm, 2 Refills, Maintenance, 09/08/20 14:57:00EST, [facility]/pharmacy #1972, 160.02, cm, 07/29/20 16:36:00 [...] A DAY, # 120 tablet, 2 Refills, [facility] STORE 57091, 160.02, cm, 07/05/21 10:30:00 EST, Height, 85, [...] 09/07/21 11:12:00 EST, Route to Pharmacy Electronically, [id number], [facility]/pharmacy #1972, 160.02, cm, 09/07/21 10:18:00 EST, Height,... Start Date: 09/07/21 Stop Date: 09/02/22 Status: Ordered Spiriva Respimat 1.25 mcg/inh inhalation aerosol 2 PUFFS INHALATION ONCE A DAY 30 DAYS Start Date: 05/05/21 Status: Ordered Spiriva Respimat 1.25 mcg/inh inhalation aerosol 2 puffs, Inhalation, Daily, # 1 each, 11 Refills, Maintenance, 09/07/21 11:12:00 EST, [facility]/pharmacy #1972, Partial fill upon patient [...] 1 Refills, Soft Stop, 10/07/20 9:06:00 EST, [facility]/pharmacy #1972, Partial fill upon patient [...] 17:59:00 EST, Aerosol, Route to Pharmacy Electronically, [id number], [facility]/pharmacy #1972, 160... Start Date: 09/08/21 [...] # 30 capsule, 5 Refills, [facility], 160.02, cm, 07/05/21 10:30:00EST, Height, 85, kg, [...] [facility], [facility] [phone](Confirmed) Active Dyan Streeter [facility] Psychiatry [place] 2Case Clinical Haematologist Parish Proctor ([facility]); Psychiatrist - Dr Konstantin Narvaez [...]
--- OUTSIDE RECORDS SUMMARY | 2024-04-05 15:17 | XMS_ITS | Continuity of Care Document ---
Author Organization [facility] Address [address] [place] [address]- Care Team Providers Care Senior Electronics Engineer Name Role Phone Mitch Lopez Primary Care Physician [facility]): 12/18/19 - 12/25/19 [facility] [address] [place] [address]- [facility] Attending Physician: Zenobia SMITH, Jorge Trimble Allergies, Adverse Reactions, Alerts Substance Reaction Severity [...] Given Patient Refuses 1Admin Note: Administered at [facility] on [facility] in [place]. 2Location History: [facility] pharmacy 3Result Comment: [06/27/2014] PT HAD AT [facility] 4Admin Note: VIS GIVEN VIS DATE [...] 07/25/19 14:29:00 EST, Route to Pharmacy Electronically, [id number], [facility]/pharmacy#1972, 158, cm, 07/25/19 13:55:00 EST, Height, 91.3... [...] 30 capsule, 11 Refills, Maintenance, [facility], 160.02, cm, 10/11/19 15:24:00 EDT, Height, 85.91, [...] Chronic migraine(Confirmed) Active OCD(Confirmed) Active Dyan Streeter [facility] Psychiatry [place] 2Case Cotton Expert Parish Proctor ([facility]); Psychiatrist - Dr Konstantin Narvaez 3admitted at adult partial hospitalization program (adult intensive short term out-pt psychiatric program). 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 BRCA1/2 negative,seen by genetics 6follow up at [facility] GI - Dr Richey. Multiple endoscopies, all normal. Other diagnosis is Non-ulcer dyspepsia Social History Social History Type Response Smoking Status Never smoker entered on: 02/07/14 Sex Female
--- OUTSIDE RECORDS SUMMARY | 2024-04-05 15:17 | XMS_ITS | Continuity of Care Document ---
Author Organization [facility] Address [address] [place] [address]- Care Team Providers Care Mail Clerks Supervisor Name Role Phone Mitch Lopez Primary Care Physician [facility]): 03/25/21 - 04/24/21 [facility] [address] [place] [address] Allergies, Adverse Reactions, Alerts Substance [...] Given Patient Refuses 1Result Comment: Received at [facility] on [address] 2Admin Note: VIS given 3Admin Note: Administered at [facility] on [address] in [place]. 4Location History: [facility] pharmacy 5Result Comment: [06/27/2014] PT HAD AT [facility] 6Admin Note: VIS GIVEN VIS DATE [...] 1 each, 0 Refills, 04/14/21 19:19:00 EDT, [facility]/pharmacy #1972, INHALE 2 PUFFS EVERY 6 HOURS NEEDED FOR WHEEZING/SHORTNESS OF BREATH, 160.02, cm, 04/14/21 14... Start Date: 04/14/21 Status: Ordered cetirizine 10 mg oral tablet 1 tablet = 10 mg, By Mouth, Daily, # 30 tablet, 0 Refills, Maintenance, 12/04/20 17:24:00 EDT, Tablet, [facility]/pharmacy #1972, Partial fill upon [...] 02/07/21 10:55:00 EDT, Route to Pharmacy Electronically, [facility]/pharmacy #1972, Partial fill upon [...] 0 Refills, Maintenance, 02/07/21 10:54:00 EDT, Gel, [facility]/pharmacy #1972, Partial fill upon patient request if the prescription is for a schedule II opioid drug., 160.02, cm, 02/04/21 15:57:00 EDT, Heig... Start Date: 02/07/21 Status: Ordered diclofenac 1% topical gel = 4 Gm, Topically, 4 times a day, PRN knee pain, Apply to painful knee, # 100 Gm, 0 Refills, Maintenance, 02/16/21 17:40:00 EDT, Gel, [facility]/pharmacy #1972, Partial fill upon [...] Gm, 0 Refills, Maintenance, 08/08/20 15:21:00 EST, [place], [facility], Partial fill upon patient request [...] 0 Refills, Maintenance, 03/08/21 18:54:00 EDT, Tablet, [facility]/pharmacy #1972, Partial fill upon patient request if the prescription is for a schedule II opioid drug., 160.02, cm, 03/08/21 18:21:00... Start Date: 03/08/21 Stop Date: 03/22/21 Status: Ordered ProAir HFA 90 mcg/inh inhalation aerosol with adapter 2, puffs, Inhalation, Every 6 hours, PRN, # 1 each, Refills 5, Tot. Refills 5, Maintenance, 05/19/20 16:20:00 EDT, Route to Pharmacy Electronically, [id number], [facility]/pharmacy#1972, 160.02, cm, 04/28/20 13:40:00 EDT, Height, 9... Start Date: 05/19/20 Stop Date: 11/15/20 Status: Ordered ProAir HFA 90 mcg/inh inhalation aerosol with adapter 2, puffs, Inhalation, Every 6 hours, PRN, # 1 each, Refills 5, Tot. Refills 5, Maintenance, 06/16/20 18:28:00 EST, Route to Pharmacy Electronically, [id number], [facility]/pharmacy#1972, 160.02, cm, 05/27/20 13:10:00 [...] 1 Refills, Soft Stop, 10/07/20 9:06:00 EST, [facility]/pharmacy #1972, Partial fill upon patient request if the prescription is for a schedule II opioid drug., 160.... Start Date: 10/07/20 Status: Ordered verapamil 180 mg oral capsule, extended release 1 capsule, By Mouth, Daily, # 30 capsule, 5 Refills, Maintenance, 02/04/21 9:28:00 EDT, [facility], 160.02, cm, 01/26/21 9:12:00 EDT, Height, 88.8, [...] Active *Joseph Resendez, Care Coord inator, ICP [phone](Confirmed) Active 1Jantoinette Streeter [facility] [place] 2Case Technology Project Manager Parish Proctor ([facility]); Psychiatrist [...] BRCA1/2 negative,seen by genetics 6follow up at [facility] GI - Dr Richey. Multiple endoscopies, all normal. Other diagnosis is Non-ulcer dyspepsia Social History Social History Type Response Smoking Status Never smoker entered on: 02/07/14 Sex Female
--- OUTSIDE RECORDS SUMMARY | 2024-04-05 15:17 | XMS_ITS | Continuity of Care Document ---
Author Organization [facility] Address [address] [place] [address]- Care Team Providers Care Wafer Fabricator Name Role Phone Mitch Lopez Primary Care Physician [phone] [facility]counter [facility]): 11/11[facility]21 - 12/11/21 [facility] [address] [place] [address]- Attending Physician: Wu Taylor MD Referring Physician: [...] Given Patient Refuses 1Result Comment: Received at [facility] on [address] 2Admin Note: VIS given 3Admin Note: Administered at [facility] on [facility] in [place]. 4Location History: [facility] pharmacy 5Result Comment: [06/27/2014] PT HAD [...] 11/22/21 11:19:00 EDT, Route to Pharmacy Electronically, [facility]/pharmacy #1972, Partial fill upon patient request [...] 0 Refills, Maintenance, 12/07/21 15:30:00 EDT, Capsule, [facility]/pharmacy #1972, Partial fill upon patient request if the prescription is for a schedule II opio... Start Date: 12/07/21 Status: Ordered [facility] MELAT[facility] 3 MG TABLET [...] 42.5 Gm, 2 Refills, Maintenance, 09/08/20 14:57:00EST, [facility]/pharmacy #1972, 160.02, cm, 07/29/20 16:36:00 EST, Height, 92.3, kg, 07/24/20 13:24:00 EST, Dry Weight Start Date: 09/08/20 Status: Ordered FLUoxetine 40 mg oral capsule TAKE 1 CAPSULE BY MOUTH EVERY DAY Start Date: 05/05/21 Status: Ordered gabapentin 600 mg oral tablet 2 tablet, By Mouth, 2 times a day, # 120 tablet, 2 Refills, [facility] 25921, 160, cm, 11/22/21 10:23:00 EDT, Height, 88.2, kg, 11/11/21 9:53:00 EDT, Dry Weight Start Date: 11/30/21 Status: Ordered meloxicam 7.5 mg oral tablet [...] 09/07/21 11:12:00 EST, Route to Pharmacy Electronically, [id number], [facility]/pharmacy #1972, 160.02, cm, 09/07/21 10:18:00 EST, Height,... Start Date: 09/07/21 Stop Date: 09/02/22 Status: Ordered Spiriva Respimat 1.25 mcg/inh inhalation aerosol 2 PUFFS INHALATION ONCE A DAY 30 DAYS Start Date: 05/05/21 Status: Ordered Spiriva Respimat 1.25 mcg/inh inhalation aerosol 2 puffs, Inhalation, Daily, # 1 each, 11 Refills, Maintenance, 09/07/21 11:12:00 EST, [facility]/pharmacy #1972, Partial fill upon patient request [...] 1 Refills, Soft Stop, 10/07/20 9:06:00 EST, [facility]/pharmacy #1972, Partial fill upon patient request [...] 17:59:00 EST, Aerosol, Route to Pharmacy Electronically, [id number], [facility]/pharmacy #1972, 160... Start Date: 09/08/21 Status: Ordered Tessalon Perles 100 mg oral capsule 1 capsule = 100 mg, By Mouth, 3 times a day, PRN Cough, # 20 capsule, 0 Refills, Maintenance, 09/16/21 15:25:00 EST, [facility]/pharmacy #1972, Partial fill upon patient request if the prescription is for aschedule II opioid drug., 160.02, cm, 09/16/21 14:3... Start Date: 09/16/21 Status: Ordered Tessalon Perles 100 mg oral capsule 1 capsule = 100 mg, By Mouth, 3 times a day, PRN as needed for cough, for 7 days, # 21 capsule, 0 Refills, Acute 12/14/21 15:30:00 EDT, 12/07/21 15:30:00 EDT, Capsule, [facility]/pharmacy #1972, Partial fill upon patient request if the prescription is for a... Start Date: 12/07/21 Stop Date: 12/14/21 Status: Ordered verapamil 180 mg oral capsule, extended release 1 capsule, By Mouth, Daily, # 30 capsule, 5 Refills, [facility] 365[facility], 160.02, cm, 07/05/21 10:30:00EST, Height, 85, kg, [...] Active *Joseph Resendez, Care Coord inator, ICP [phone](Confirmed) Active 1Jantoinette Streeter [facility] Psychiatry [place] 2Case Rn Interventional Parish Esthela ([facility]); Psychiatrist - Dr Konstantin [...]
--- OUTSIDE RECORDS SUMMARY | 2024-04-05 15:17 | XMS_ITS | Continuity of Care Document ---
Author Organization [facility] Address [address] [place] [address]- Care Team Providers Care Supervisor Costuming Name Role Phone Mitch Lopez Primary Care Physician [facility] 11/[facility]/21 - 12/08/21 [facility] [address] [place] [address]- Allergies, Adverse Reactions, Alerts Substance Reaction Severity [...] Given Patient Refuses 1Result Comment: Received at [facility] on [address] 2Admin Note: VIS given 3Admin Note: Administered at [facility] on [address] in [place]. 4Location History: [facility] pharmacy 5Result Comment: [06/27/2014] PT HAD AT [facility] 6Admin Note: VIS GIVEN VIS DATE 01/30/2012 [...] 11/22/21 11:19:00 EDT, Route to Pharmacy Electronically, [facility]/pharmacy #1972, Partial fill upon patient request [...] 0 Refills, Maintenance, 12/07/21 15:30:00 EDT, Capsule, [facility]/pharmacy #1972, Partial fill upon patient request [...] a day, # 120 tablet, 2 Refills, [facility] STORE [id number], 160, cm, 11/22/21 10:23:00 EDT, Height, 88.2, [...] 09/07/21 11:12:00 EST, Route to Pharmacy Electronically, [id number], [facility]/pharmacy #1972, 160.02, cm, 09/07/21 10:18:00 EST, Height,... Start Date: 09/07/21 Stop Date: 09/02/22 Status: Ordered Spiriva Respimat 1.25 mcg/inh inhalation aerosol 2 PUFFS INHALATION ONCE A DAY 30 DAYS Start Date: 05/05/21 Status: Ordered Spiriva Respimat 1.25 mcg/inh inhalation aerosol 2 puffs, Inhalation, Daily, # 1 each, 11 Refills, Maintenance, 09/07/21 11:12:00 EST, [facility]/pharmacy #1972, Partial fill upon patient request [...] 1 Refills, Soft Stop, 10/07/20 9:06:00 EST, [facility]/pharmacy #1972, Partial fill upon patient request [...] 17:59:00 EST, Aerosol, Route to Pharmacy Electronically, [id number], [facility]/pharmacy #1972, 160... Start Date: 09/08/21 Status: [...] 12/14/21 15:30:00 EDT, 12/07/21 15:30:00 EDT, Capsule, [facility], Partial fill upon patient request if the prescription is for a... Start Date: 12/07/21 Stop Date: 12/14/21 Status: Ordered verapamil 180 mg oral capsule, extended release 1 capsule, By Mouth, Daily, # 30 capsule, 5 Refills, [facility], 160.02, cm, 07/05/21 10:30:00EST, Height, 85, kg, [...] Active *Joseph Resendez, Care Coord inator, ICP [phone](Confirmed) Active 1Jantoinette Streeter [facility] [place] [facility] [place] 2Case Fusion Analyst Parish Proctor ([facility]); Psychiatrist - Dr Konstantin Narvaez 3admitted at adult partial hospitalization program (adult intensive short term out-pt psychiatric program). 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 BRCA1/2 negative,seen by genetics 6follow up at [facility] GI - Dr Richey. Multiple endoscopies, all normal. Other diagnosis is Non-ulcer dyspepsia Social History Social History Type Response Smoking Status Never smoker entered on: 02/07/14 Sex Female
--- OUTSIDE RECORDS SUMMARY | 2024-04-05 15:17 | XMS_ITS | Continuity of Care Document ---
Author Organization [facility] Adult [facility] Address [address] [place] [address]- Care Team Providers Care Ostrich Farm Worker Name Role Phone Mitch Lopez Primary Care Physician [phone] [facility]counter [facility] 02/22/21 - 03/24/21 [facility] [address] [place] [address]- Allergies, Adverse Reactions, Alerts Substance Reaction Severity [...] Patient Refuses 1Result Comment: Received at [facility] on [address] 2Admin Note: VIS given 3Admin Note: Administered at [facility] on [address] in [place]. 4Location History: [facility] [...] Refills, Maintenance, 12/04/20 17:24:00 EDT, Tablet, [facility]/pharmacy #1972, Partial fill upon patient request if the prescription is for a schedule II opioid drug., 160.02, cm, 12/04/20 17:05:00 EDT, [place]... Start Date: 12/04/20 Status: Ordered Colace sodium 100 mg oral capsule 100 mg, 1, capsule, By Mouth, 2 times a day, PRN, # 20 capsule, Refills 0, Tot. Refills 0, Maintenance, for constipation, 02/07/21 10:55:00 EDT, Route to Pharmacy Electronically, [facility]/pharmacy #1972, Partial fill upon patient request if the prescriptio... Start Date: 02/07/21 Status: Ordered Compression Stockings See Instructions, # [...] Refills, Maintenance, 02/07/21 10:54:00 EDT, Gel, [facility]/pharmacy #1972, Partial fill upon [...] Gm, 0 Refills, Maintenance, 08/08/20 15:21:00 EST, [place], [facility], Partial fill upon patient request if the prescription is for a schedule II opioid drug., 1 sprays Nares, Both 2 times a day, 160.0... Start Date: 08/08/20 Status: Ordered gabapentin 300 mg oral capsule 900 mg, 3, capsule, By Mouth, 3 times a day, # 90 capsule, Refills 0, Maintenance, 09/09/19 11:53:00 EST Start Date: 09/09/19 Status: Ordered levoFLOXacin 500 mg oral tablet 1 tablet = 500 mg, By Mouth, Every 24 hours, for 7 days, # 7 tablet, 0 Refills, Acute 03/30/21 18:13:00 EDT, 03/23/21 18:13:00 EDT, Tablet, [facility], Partial fill upon patient request if the prescription is for a schedule II opioid drug., 16... Start Date: 03/23/21 Stop Date: 03/30/21 Status: Ordered lidocaine 5% topical film 1 [...] Date: 03/08/21 Stop Date: 03/22/21 Status: Ordered POISE PADS POISE PADS, See Instructions, # 180 each, Refills 5, Tot. Refills 5, Maintenance, For stress incontinence (N93.3), Cystoscopy (Z98.890)., 02/27/19 14:16:26 EDT, Compound Start Date: 02/27/19 Status: Ordered ProAir HFA 90 mcg/inh inhalation aerosol with adapter 2, puffs, Inhalation, Every 6 hours, PRN, # 1 each, Refills 5, Tot. Refills 5, Maintenance, 05/19/20 16:20:00 EDT, Route to Pharmacy Electronically, [id number], [facility], 160.02, cm, 04/28/20 13:40:00 EDT, Height, 9... Start Date: 05/19/20 Stop Date: 11/15/20 Status: Ordered ProAir HFA 90 mcg/inh inhalation aerosol with adapter 2, puffs, Inhalation, Every 6 hours, PRN, # 1 each, Refills 5, Tot. Refills 5, Maintenance, 06/16/20 18:28:00 EST, Route to Pharmacy Electronically, [id number], [facility]/pharmacy#1972, 160.02, cm, 05/27/20 13:10:00 EDT, Height, 9... [...] 1 Refills, Soft Stop, 10/07/20 9:06:00 EST, [facility]/pharmacy #1972, Partial fill upon patient request if the prescription is for a schedule II opioid drug., 160.... Start Date: 10/07/20 Status: Ordered verapamil 180 mg oral capsule, extended release 1 capsule, By Mouth, Daily, # 30 capsule, 5 Refills, Maintenance, 02/04/21 9:28:00 EDT, [facility] STORE 85312, 160.02, cm, 01/26/21 9:12:00 EDT, Height, 88.8, [...] Active *Joseph Resendez, Care Coord inator, ICP [phone](Confirmed) Active 1Jantoinette Streeter [facility] [place] [facility] [place] 2Case Community Engagement Manager Parish Esthela ([facility]); Psychiatrist - Dr Konstantin Narvaez 3admitted [...]
--- OUTSIDE RECORDS SUMMARY | 2024-04-05 15:17 | XMS_ITS | Continuity of Care Document ---
Author Organization [facility] Address [address] [place] [address]- Care Team Providers Care Road Machine Operator Name Role Phone Mitch Lopez Primary Care Physician [facility] 12/02/22 - 01/01/23 [facility] [address] [place] [address]- Allergies, Adverse Reactions, Alerts Substance Reaction Severity [...] Patient Refuses 1Admin Note: Administered at [facility] on [facility] in [place]. 2Location History: [facility] pharmacy 3Result Comment: [06/27/2014] PT HAD AT [facility] 4Admin Note: VIS GIVEN VIS DATE 01/30/2012 5Admin Note: flulaval vis given vis date 02/22/2011 6Admin Note: vis given 03/09/10 7Result Comment: Received at [facility] on [facility] 8Admin Note: VIS given 9Admin Note: [...] opioid drug. Start Date: 09/14/22 Status: Ordered diclofenac 1% topical gel 1 application, Topically, 4 times a day, PRN Pain , Moderate, # 100 Gm, 0 Refills, Maintenance, 12/26/22 13:20:00 EDT, Gel, [facility], Partial fill upon patient request if the prescription is for a schedule II opioid drug., 161, cm, 12/24/22... Start Date: 12/26/22 Stop Date: 01/02/23 Status: Ordered hydrOXYzine hydrochloride 25 mg oral tablet 1 tablet = 25 mg, By Mouth, 2 times a day, PRN as needed for anxiety, # 60 tablet, 2 Refills, Maintenance, 12/19/22 8:39:00 EDT, [facility], Partial fill upon patient request if the prescription is for a schedule II opioid drug., 161, cm, 11/29... Start Date: 12/19/22 Status: Ordered lidocaine 5% topical film 1 patch, Topically, Daily, PRN Pain , Mild, remove after 12 hours, # 13 each, 0 Refills, Acute 01/06/23 23:00:00 EDT, 12/24/22 10:09:00 EDT, [place], [facility], Partial fill upon patient request if the prescription is for a schedule II opioid dr... Start Date: 12/24/22 Stop Date: 01/06/23 Status: Ordered lidocaine 5% topical film 1 patch, Topically, Daily, PRN NEEDED FOR PAIN REMOVE AFTER 12 HOURS, # 30 patch, 1 Refills, Maintenance, 07/07/22 18:54:00 EST, [facility] STORE 78162, 30, APPLY 1 PATCH TOPICALLY DAILY NEEDED [...] opioid drug.,... Start Date: 10/21/22 Status: Ordered meloxicam 15 mg oral tablet 1 tablet = 15 mg, By Mouth, Daily, for pain take with food please, # 10 tablet, 0 Refills, Maintenance, 12/30/22 15:43:00 EDT, [facility]/pharmacy #1972, Partial fill upon patient [...] 10/31/22 16:24:00 EDT, Route to Pharmacy Electronically, [facility]/pharmacy #1972, Partial fill upon patien... Start [...] tablet, 11 Refills, Maintenance, 07/12/22 14:20:00 EST, [facility]/pharmacy #1972, Partial fill upon patient request if the prescription is for a schedule II opioid drug., 160, cm, 07/12/22 13:43:00 EST, Height, 88.2,... Start Date: 07/12/22 Status: Ordered Spiriva Respimat 1.25 mcg/inh inhalation aerosol 2 puffs, Inhalation, Daily, # 1 each, 11 Refills, Maintenance, 11/21/22 12:15:00 EDT, [facility]/pharmacy #1972, Partial fill upon patient [...] 19:11:00 EDT, Aerosol, Route to Pharmacy Electronically, [id number], [facility], 161... Start Date: 11/24/22 Status: [...] Confirmed Active OCD Confirmed Active *Joseph Resendez, Instrumentation And Controls Technician, ICP [phone] Confirmed Active 1Jantoinette Streeter [facility] [place] 2Case Corporate Travel Agent Parish Esthela ([facility]); Psychiatrist - Dr Konstantin Narvaez 3admitted at adult partial hospitalization program (adult intensive short term out-pt psychiatric program). 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 BRCA1/2 negative,seen by genetics 6follow up at [facility] GI - Dr Richey. Multiple endoscopies, all normal. Other diagnosis is Non-ulcer dyspepsia Social History Social History Type Response Smoking Status Never smoker entered on: 02/07/14 Sex Female Patient Care team information Care Team Personnel Name: Mitch Lopez Position: [facility] PCO Associate Professional Member Role: PCP Address: Address: [address] [place] [address] [place] [address]- Care Team Related Persons Name: GABINO CASTANEDA Address: home [address] [place] [id number] Name: JERROD BEAUCHAMP Address: [place], [place] Name: BRE MIRANDA Address: [address] [place] [address] Name: ALEYDA BEE Address: home [address] [place], [place] Name: ALEYDA BEE Address: home [address] [place] [address] Name: ROMIE PUENTES Address: home [address] [place] [address]
--- OUTSIDE RECORDS SUMMARY | 2024-04-05 15:17 | XMS_ITS | Continuity of Care Document ---
Author Organization [facility] Address [address] [place] [address]- Care Team Providers Care Mobile Solutions Architect Name Role Phone Mitch Lopez Primary Care Physician [facility]): 12/01/22 - 12/31/22 [facility] [address] [place] [address]- Allergies, Adverse Reactions, Alerts Substance Reaction Severity [...] Given Patient Refuses 1Admin Note: Administered at [facility] on [facility] in [place]. 2Location History: [facility] pharmacy 3Result Comment: [06/27/2014] PT HAD AT [facility] 4Admin Note: VIS GIVEN VIS DATE 01/30/2012 5Admin Note: flulaval vis given vis date 02/22/2011 6Admin Note: vis given 03/09/10 7Result Comment: Received at [facility] on [facility] 8Admin Note: VIS given 9Admin [...] 01/06/23 23:00:00 EDT, 12/24/22 10:09:00 EDT, Film, [facility]/pharmacy #1972, Partial fill upon patient request if the prescription is for a schedule II opioid dr... Start Date: 12/24/22 Stop Date: 01/06/23 Status: Ordered lidocaine 5% topical film 1 patch, Topically, Daily, PRN NEEDED FOR PAIN REMOVE AFTER 12 HOURS, # 30 patch, 1 Refills, Maintenance, 07/07/22 18:54:00 EST, [facility] STORE 44492, 30, APPLY 1 PATCH TOPICALLY DAILY NEEDED FOR PAIN REMOVE AFTER 12 HOURS, 160, cm, 06/07/22 9:36:00... Start Date: 07/07/22 Status: Ordered Macrobid macrocrystals-monohydrate 100 mg oral capsule 1 capsule = 100 mg, By Mouth, 2 times a day, for 5 days, # 10 capsule, 0 Refills, Acute 01/01/23 13:45:00 EDT, 12/27/22 13:45:00 EDT, Capsule, [facility], Partial fill upon patient request ifthe prescription is for a schedule II opioid drug.,... Start Date: 12/27/22 Stop Date: 01/01/23 Status: Ordered Mapap Arthritis Pain 650 mg [...] 19:11:00 EDT, Aerosol, Route to Pharmacy Electronically, [id number], [facility], 161... Start Date: 11/24/22 Status: [...] Confirmed Active OCD Confirmed Active *Joseph Resendez, Service Desk Manager, ICP [phone] Confirmed Active 1Jantoinette Streeter [facility] 2Case Outside Sales Account Executive Parish Proctor ([facility]); Psychiatrist - Dr Konstantin Narvaez [...] Associate Professional Member Role: PCP Address: Address: [address] [place] [address] [place] [address]- Care Team Related Persons Name: GABINO CASTANEDA Address: home [address] [place] [address] Name: JERROD BEAUCHAMP Address: [place], [place] Name: BRE MIRANDA Address: [address] [place] [address] Name: ALEYDA BEE Address: [address] [place] [address] Name: ALEYDA BEE Address: home [address] [place] [address] Name: ROMIE PUENTES Address: home [address] [place] [address]
--- OUTSIDE RECORDS SUMMARY | 2024-04-05 15:17 | XMS_ITS | Continuity of Care Document ---
Author Organization [facility] Adult [facility] Address [address] [place] [address]- Care Team Providers Care Counter Molder Name Role Phone Mitch Lopez Primary Care Physician [phone] [facility] 01/18/24 - 02/17/24 [facility] [address] [place], [place] [phone] Allergies, Adverse Reactions, Alerts Substance Reaction Severity [...] Note: Administered at [facility] on [facility] in [place]. 2Location History: [facility] pharmacy 3Result Comment: [06/27/2014] PT HAD AT [facility] 4Admin Note: VIS GIVEN VIS DATE 01/30/2012 5Admin Note: flulaval vis given vis date 02/22/2011 6Admin Note: vis given 03/09/10 7Result Comment: Received at [facility] on [facility] 8Admin Note: VIS given 9Admin Note: [...] Gm, 3 Refills, Maintenance, 08/28/23 14:07:00 EST, [facility]/pharmacy #1972, 25, 1 application Topically 4 times a day,PRN: NEEDED,Instr:MODERATE PAIN., 161, cm, 08/16/23 11:00:... Start Date: 08/28/23 Status: Ordered hydrOXYzine hydrochloride 25 mg oral tablet 1 tablet, By Mouth, 2 times a day, PRN NEEDED FOR ANXIETY, # 180 tablet, 0 Refills, Maintenance,01/19/24 9:05:00 EDT, [facility], 161, cm, 01/16/24 16:04:00 EDT, Height, 82.1, [...] 03/31/23 18:55:00 EDT, [facility] STORE 45495, 161, cm, 03/29/23 14:07:00 EDT, Height, 85, [...] Refills, Maintenance, 02/13/24 9:40:00 EDT, [facility], 161, cm, 01/16/24 16:04:00 EDT, Height, 82.1, [...] Confirmed Active OCD Confirmed Active *Joseph Resendez, Clinical Nutritionist, ICP [phone] Confirmed Active 1Jantoinette Streeter [facility] [place] 2Case Traffic Investigator Parish Proctor ([facility]); Psychiatrist [...] BRCA1/2 negative,seen by genetics 6follow up at [facility] GI - Dr Richey. Multiple endoscopies, all normal. Other diagnosis is Non-ulcer dyspepsia Social History Social History Type Response Smoking Status Never smoker entered on: 02/07/14 Sex Female Patient Care team information Care Team Personnel Name: Mitch Lopez Position: S PCO Associate Professional Member Role: PCP Address: Address: [address] [place] [address] [place] [address]- Care Team Related Persons Name: GABINO CASTANEDA Address: home [address] [place] [address] Name: JERROD BEAUCHAMP Address: [place], [place] Name: BRE MIRANDA Address: [address] [place] [address] Name: ALEYDA BEE Address: [address] [place] [address] Name: ALEYDA BEE Address: [address] [place] [address] Name: ROMIE PUENTES Address: home [address] [place] [address]
--- OUTSIDE RECORDS SUMMARY | 2024-04-05 15:17 | XMS_ITS | Continuity of Care Document ---
Author Organization [facility] Address [address] [place] [address]- Care Team Providers Care Chiropractic Practice Manager Name Role Phone Mitch Lopez Primary Care Physician [facility]): 05/26/21 - 06/25/21 [facility] [address] [place], [place] [address] Allergies, Adverse Reactions, Alerts Substance Reaction [...] Given influ virus vac, H1N1, inactive(oldterm) 13 3/18/10 Given FluLaval (oldterm) 14 05/15/09 Given diphtheria-tetanus toxoids (DT) 15 12/10/08 Given Influenza Inactive (IM) (oldterm) 16 06/18/08 Give n Influenza Vaccine (oldterm) 17 05/23/07 Given Pneumococcal Vacc (oldterm) 18 07/18/06 Given Not Given Vaccine Date Status Refusal Reason pneumococcal 23-valent vaccine 10/13/13 Not Given Patient Refuses 1Result Comment: Received at [facility] on [facility] [address] 2Admin Note: VIS given 3Admin Note: Administered at [facility] on [facility] [address] in [place]. 4Location History: [facility] pharmacy 5Result Comment: [06/27/2014] PT HAD AT [facility] 6Admin Note: VIS GIVEN VIS [...] 1 each, 0 Refills, 04/14/21 19:19:00 EDT, [facility]/pharmacy #1972, INHALE 2 PUFFS EVERY 6 HOURS NEEDED FOR WHEEZING/SHORTNESS OF BREATH, 160.02, cm, 04/14/21 14... Start Date: 04/14/21 Status: Ordered Azithromycin 5 Day Dose Pack 250 mg oral tablet See Instructions, as directed on package labeling, # 6 tablet, 0 Refills, Maintenance, 05/05/21 9:14:00 EDT, [facility]/pharmacy #1972, Partial fill upon patient request [...] 06/01/21 18:02:00 EDT, Route to Pharmacy Electronically, [facility]/pharmacy #1972, Partial fill u... Start Date: 06/01/21 [...] 42.5 Gm, 2 Refills, Maintenance, 09/08/20 14:57:00EST, [facility]/pharmacy #1972, 160.02, cm, 07/29/20 16:36:00 EST, [...] 0 Refills, Maintenance, 03/08/21 18:54:00 EDT, Tablet, [facility]/pharmacy #1972, Partial fill upon patient request if the prescription is for a schedule II opioid drug., 160.02, cm, 03/08/21 18:21:00... Start Date: 03/08/21 Stop Date: 03/22/21 Status: Ordered ProAir HFA 90 mcg/inh inhalation aerosol with adapter 2, puffs, Inhalation, Every 6 hours, PRN, # 1 each, Refills 5, Tot. Refills 5, Maintenance, 05/19/20 16:20:00 EDT, Route to Pharmacy Electronically, [id number], [facility]/pharmacy#1972, 160.02, cm, 04/28/20 13:40:00 EDT, Height, 9... Start Date: 05/19/20 Stop Date: 11/15/20 Status: Ordered ProAir HFA 90 mcg/inh inhalation aerosol with adapter 2, puffs, Inhalation, Every 6 hours, PRN, # 1 each, Refills 5, Tot. Refills 5, Maintenance, 06/16/20 18:28:00 EST, Route to Pharmacy Electronically, [id number], [facility]/pharmacy#1972, 160.02, cm, 05/27/20 13:10:00 EDT, Height, [...] Refills, Maintenance, 02/04/21 9:28:00 EDT, [facility], 160.02, cm, 01/26/21 9:12:00 EDT, Height, 88.8, [...] Active *Joseph Resendez, Care Coord inator, ICP [phone](Confirmed) Active 1Jantoinette Streeter [facility] [place] 2Case Marine Operations Coordinator Parish Proctor ([facility]); Psychiatrist - Dr Konstantin Narvaez 3admitted at adult partial hospitalization program (adult intensive short term out-pt psychiatric program). 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 BRCA1/2 negative,seen by genetics 6follow up at [facility] GI - Dr Richey. Multiple endoscopies, all normal. Other diagnosis is Non-ulcer dyspepsia Social History Social History Type Response Smoking Status Never smoker entered on: 02/07/14 Sex Female
--- OUTSIDE RECORDS SUMMARY | 2024-04-05 15:17 | XMS_ITS | Continuity of Care Document ---
Author Organization [facility] Address [address] [place] [address]- Care Team Providers Care Men'S And Boys' Clothing Salesperson Name Role Phone Mitch Lopez Primary Care Physician Encounter [facility] [place] Date(s): 10/21/23 - 11/20/23 [facility] [address] [place] [address]- Attending Physician: Prachi Olivas MD Referring Physician: Mitch Lopez Allergies, Adverse [...] 18 07/18/06 Given 1Admin Note: Administered at [facility] on [facility] in [place]. 2Location History: [facility] pharmacy 3Result Comment: [06/27/2014] PT HAD AT [facility] 4Admin Note: VIS GIVEN VIS DATE 01/30/2012 5Admin Note: flulaval vis given vis date 02/22/2011 6Admin Note: vis given 03/09/10 7Result Comment: Received at [facility] on [facility] 8Admin Note: VIS given 9Admin [...] tablet, 2 Refills, Maintenance, 10/17/23 11:01:00 EDT, [facility] STORE 95232, 161, cm, 09/29/23 11:18:00 EST, Height, 82.1, [...] 10/31/22 16:24:00 EDT, Route to Pharmacy Electronically, [facility]/pharmacy #1972, Partial fill upon patien... Start Date: 10/31/22 Status: Ordered nabumetone 500 mg oral tablet 1 tablet, By Mouth, 2 times a day, TAKE WITH FOOD., # 60 tablet, 0 Refills, Maintenance, 03/31/23 18:55:00 EDT, [facility] STORE 14249, 161, cm, 03/29/23 14:07:00 EDT, Height, 85, [...] Active OCD Confirmed Active *Joseph Resendez, Manager Bakery, ICP [phone] Confirmed Active 1Jantoinette Streeter [facility] [place] 2Case Spring Crater Parish Proctor ([facility]); Psychiatrist [...] BRCA1/2 negative,seen by genetics 6follow up at [facility] - Dr Richey. Multiple endoscopies, all normal. Other diagnosis is Non-ulcer dyspepsia Social History Social History Type Response Smoking Status Never smoker entered on: 02/07/14 Sex Female Patient Care team information Care Team Personnel Name: Mitch Lopez Position: S PCO Associate Professional Member Role: PCP Address: Address: [address] [place] [address] [place] [address]- Care Team Related Persons Name: GABINO CASTANEDA Address: home [address] [place] [address] Name: JERROD BEAUCHAMP Address: home [place], [place] Name: BRE MIRANDA Address: home [address] [place] [address] Name: ALEYDA BEE Address: home [address] [place] [address] Name: ALEYDA BEE Address: home [address] [place] [address] Name: ROMIE PUENTES Address: home [address] [place] [address]
--- OUTSIDE RECORDS SUMMARY | 2024-04-05 15:17 | XMS_ITS | Continuity of Care Document ---
Author Organization [facility] Address [address] [place] [address]- Care Team Providers Care Matlab Developer Name Role Phone Mitch Lopez Primary Care Physician [phone] Encounter [facility] Date(s): 05/31/21 - 07/15/21 [facility] [address] [place] [address]- Attending Physician: Mitch Lopez Admitting Physician: Mitch [...] Given Patient Refuses 1Result Comment: Received at [facility] on [address] 2Admin Note: VIS given 3Admin Note: Administered at [facility] on [address] in [place]. 4Location History: [facility] pharmacy 5Result Comment: [06/27/2014] PT HAD AT [facility] 6Admin Note: VIS GIVEN VIS [...] 1 each, 0 Refills, 04/14/21 19:19:00 EDT, [facility]/pharmacy #1972, INHALE 2 PUFFS EVERY 6 HOURS NEEDED FOR WHEEZING/SHORTNESS OF BREATH, 160.02, cm, 04/14/21 14... Start Date: 04/14/21 Status: Ordered Azithromycin 5 Day Dose Pack 250 mg oral tablet See Instructions, as directed on package labeling, # 6 tablet, 0 Refills, Maintenance, 05/05/21 9:14:00 EDT, [facility]/pharmacy #1972, Partial fill upon patient [...] 06/01/21 18:02:00 EDT, Route to Pharmacy Electronically, [facility]/pharmacy #1972, Partial fill u... Start [...] 42.5 Gm, 2 Refills, Maintenance, 09/08/20 14:57:00EST, [facility]/pharmacy #1972, 160.02, cm, 07/29/20 16:36:00 [...] 0 Refills, Maintenance, 03/08/21 18:54:00 EDT, Tablet, [facility]/pharmacy #1972, Partial fill upon patient request if the prescription is for a schedule II opioid drug., 160.02, cm, 03/08/21 18:21:00... Start Date: 03/08/21 Stop Date: 03/22/21 Status: Ordered ProAir HFA 90 mcg/inh inhalation aerosol with adapter 2, puffs, Inhalation, Every 6 hours, PRN, # 1 each, Refills 5, Tot. Refills 5, Maintenance, 06/28/21 16:04:00 EST, Route to Pharmacy Electronically, [id number], [facility]/pharmacy#1972, 160.02, cm, 06/08/21 8:42:00 EST, Height, 85... Start Date: 06/28/21 Stop Date: 12/25/21 Status: Ordered ProAir HFA 90 mcg/inh inhalation aerosol with adapter 2, puffs, Inhalation, Every 6 hours, PRN, # 1 each, Refills 5, Tot. Refills 5, Maintenance, 05/19/20 16:20:00 EDT, Route to Pharmacy Electronically, [id number], [facility]/pharmacy#1972, 160.02, cm, 04/28/20 13:40:00 EDT, [...] 1 Refills, Soft Stop, 10/07/20 9:06:00 EST, [facility]/pharmacy #1972, Partial fill upon patient request if the prescription is for a schedule II opioid drug., 160.... Start Date: 10/07/20 Status: Ordered Symbicort 160mcg/4.5mcg Inhaler INHALE 2 PUFFS TWICE A DAY Start Date: 05/05/21 Status: Ordered verapamil 180 mg oral capsule, extended release 1 capsule, By Mouth, Daily, # 30 capsule, 5 Refills, Maintenance, 02/04/21 9:28:00 EDT, [facility], 160.02, cm, 01/26/21 9:12:00 EDT, Height, 88.8, [...] Active *Joseph Resendez, Care Coord inator, ICP [phone](Confirmed) Active 1Jantoinette Streeter [facility]iat[facility] [place] 2Case Match Up Worker Parish Proctor ([facility]); Psychiatrist - Dr Konstantin Narvaez 3admitted at adult partial hospitalization program (adult intensive short term out-pt psychiatric program). 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 BRCA1/2 negative,seen by genetics 6follow up at [facility] GI - Dr Richey. Multiple endoscopies, all normal. Other diagnosis is Non-ulcer dyspepsia Social History Social History Type Response Smoking Status Never smoker entered on: 02/07/14 Sex Female
--- OUTSIDE RECORDS SUMMARY | 2024-04-05 15:17 | XMS_ITS | Continuity of Care Document ---
Author Organization [facility] Address [address] [place] [address]- Care Team Providers Care Master Ship Name Role Phone Mitch Lopez Primary Care Physician [facility]counter [facility] Date(s): 10/10/19 - 10/20/19 [facility] [address] [place] [address]- [facility] Attending Physician: Jana Mercado Admitting Physician: Jana [...] Given Patient Refuses 1Admin Note: Administered at [facility] on [address] in [place]. 2Location History: [facility] pharmacy 3Result Comment: [06/27/2014] PT HAD AT [facility] 4Admin Note: VIS GIVEN VIS DATE [...] 07/25/19 14:29:00 EST, Route to Pharmacy Electronically, [id number], [facility]/pharmacy#1972, 158, cm, 07/25/19 13:55:00 EST, [...] 11/22/19 12:00:00 EDT, 10/11/19 16:15:00 EDT, Tablet, [facility] Start Date: 10/11/19 Stop Date: 11/22/19 Status: [...] Chronic migraine(Confirmed) Active OCD(Confirmed) Active 1Jantoinette Streeter [facility] 2Case Patient Assistant Parish Proctor ([facility]); Psychiatrist - Dr Konstantin Narvaez 3admitted [...]
--- OUTSIDE RECORDS SUMMARY | 2024-04-05 15:18 | XMS_ITS | Continuity of Care Document ---
Author Organization [facility] Address [address] [place] [address]- Care Team Providers Care Credit Union Examiner Name Role Phone Mitch Lopez Primary Care Physician Encounter [facility] Date(s): 12/13/19 - 12/20/19 [facility] [address] [place] [address]- [facility] Attending Physician: Mitch Lopez Allergies, Adverse Reactions, Alerts [...] Patient Refuses 1Admin Note: Administered at [facility] on [facility] in [place]. 2Location History: [facility] pharmacy 3Result Comment: [06/27/2014] PT HAD AT [facility] 4Admin Note: VIS GIVEN VIS DATE 01/30/2012 [...] 07/25/19 14:29:00 EST, Route to Pharmacy Electronically, [id number], [facility]/pharmacy#1972, 158, cm, 07/25/19 13:55:00 EST, Height, [...] 30 capsule, 11 Refills, Maintenance, [facility], 160.02, cm, 10/11/19 15:24:00 EDT, Height, 85.91, [...] Chronic migraine(Confirmed) Active OCD(Confirmed) Active Dyan Streeter [facility] Psychiatry [place] 2Case Human Geography Faculty Member Parish Proctor ([facility]); Psychiatrist - Dr Konstantin Narvaez [...]
--- OUTSIDE RECORDS SUMMARY | 2024-04-05 15:18 | XMS_ITS | Continuity of Care Document ---
Author Organization [facility] Address [address] [place] [address]- Care Team Providers Care Radiologic Technician Name Role Phone Mitch Lopez Primary Care Physician [phone] Encounter [facility] Date(s): 05/04/23 - 06/03/23 [facility] [address] [place], [place] [address] Allergies, Adverse Reactions, Alerts Substance [...] at [facility] on [facility] in [place]. 2Location History: [facility] pharmacy 3Result Comment: [06/27/2014] PT HAD AT [facility] 4Admin Note: VIS GIVEN VIS DATE 01/30/2012 5Admin Note: flulaval vis given vis date 02/22/2011 6Admin Note: vis given 03/09/10 7Result Comment: Received at [facility] on [facility] 8Admin Note: VIS given 9Admin Note: [...] tablet, 2 Refills, Maintenance, 03/31/23 18:55:00 EDT, [facility] STORE 31900, 161, cm, 03/29/23 14:07:00 EDT, Height, 85, [...] EDT, [facility] STORE 42099, 161, cm, 03/29/23 14:07:00 EDT, Height, 85, [...] 19:11:00 EDT, Aerosol, Route to Pharmacy Electronically, [id number], [facility], 161... Start Date: 11/24/22 Status: [...] Refills, Maintenance, 03/22/23 11:50:00 EDT, [facility], 161, cm, 03/20/23 17:26:00 EDT, Height, 85, [...] Confirmed Active OCD Confirmed Active *Joseph Resendez, College Coach, ICP [phone] Confirmed Active 1Jantoinette Streeter [facility] 2Case Production Metal Sprayer Parish Proctor ([facility]); Psychiatrist - Dr Konstantin Narvaez 3admitted [...] Associate Professional Member Role: PCP Address: Address: [address] [place] [address] [place] [address]- Care Team Related Persons Name: GABINO CASTANEDA Address: home [address] [place] [address] Name: JERROD BEAUCHAMP Address: [place], [place] Name: BRE MIRANDA Address: [address] [place] [address] Name: ALEYDA BEE Address: home [address] [place], [place] Name: ALEYDA BEE Address: home [address] [place], [place] Name: ROMIE PUENTES Address: home [address] [place] [address]
--- OUTSIDE RECORDS SUMMARY | 2024-04-05 15:18 | XMS_ITS | Continuity of Care Document ---
Author Organization [facility] Address [address] [place] [address]- Care Team Providers Care Body Make Up Artist Name Role Phone Mitch Lopez Primary Care Physician [phone] Encounter [facility] Date(s): 08/30/23 - 09/29/23 [facility] [address] [place] [address] Allergies, Adverse Reactions, Alerts Substance Reaction [...] 07/18/06 Given 1Admin Note: Administered at [facility] on [facility] in [place]. 2Location History: [facility] pharmacy 3Result Comment: [06/27/2014] PT HAD AT [facility] 4Admin Note: VIS GIVEN VIS DATE 01/30/2012 5Admin Note: flulaval vis given vis date 02/22/2011 6Admin Note: vis given 03/09/10 7Result Comment: Received at [facility] on [facility] 8Admin Note: VIS given [...] drug. Start Date: 09/14/22 Status: Ordered [facility] MELATONIN [...] 3 Refills, Maintenance, 08/28/23 14:07:00 EST, [facility]/pharmacy #1972, 25, 1 application Topically 4 times a day,PRN: NEEDED,Instr:MODERATE PAIN., 161, cm, 08/16/23 11:00:... Start Date: 08/28/23 Status: Ordered hydrOXYzine hydrochloride 25 mg oral tablet 1 tablet, By Mouth, 2 times a day, PRN NEEDED FOR ANXIETY, # 60 tablet, 2 Refills, Maintenance, 06/09/23 19:43:00 EST, [facility] STORE 50042, 161, cm, 05/27/23 9:13:00 EDT, Height, 85, kg, 09/16/22 6:46:00 EST, Dry Weight Start Date: 06/09/23 Status: Ordered lidocaine 5% topical film 1 patch, Topically, Daily, PRN NEEDED FOR PAIN REMOVE AFTER 12 HOURS, # 30 patch, 1 Refills, Maintenance, 07/28/23 17:33:00 EST, [facility] STORE 63673, 30, APPLY 1 PATCH TOPICALLY DAILY NEEDED FOR PAIN REMOVE AFTER 12 HOURS, 161, cm, 07/20/23 10:04:00... Start Date: 07/28/23 Status: Ordered Lidoderm 5% film 1 patch, Topically, Daily, remove patches after 12 hours, # 30 patch, 0 Refills, Maintenance, 08/16/23 11:10:00 EST, [facility]/pharmacy #1972, Partial [...] 0 Refills, Maintenance, 03/31/23 18:55:00 EDT, [facility] STORE 42129, 161, cm, 03/29/23 14:07:00 EDT, Height, 85, [...] tablet, 0 Refills, Maintenance, 07/02/23 8:58:00 EST, [facility]/pharmacy #1972, Partial [...] 10:54:00 EST, Aerosol, Route to Pharmacy Electronically, [id number], [facility]/pharmacy #1972, 161... Start Date: 07/05/23 Status: Ordered traMADol 50 mg oral tablet 1 tablet = 50 mg, By Mouth, 2 times a day, for severe pain due to rotator cuff tear. may obtain fewer, # 60 tablet, 0 Refills, Maintenance, 09/27/23 15:15:00 EST, [facility], Partial fill upon patient request if the prescription is for a sched... Start Date: 09/27/23 Status: Ordered Ventolin HFA 108 mcg/inh inhalation [...] Confirmed Active OCD Confirmed Active *Joseph Resendez, Accounts Receivable Administrator, [facility] [phone] Confirmed Active 1Jantoinette Streeter [facility] Psychiat[facility] [place] 2Case Cast Iron Dipper Parish Proctor ([facility]); Psychiatrist - Dr Konstantin Narvaez [...] by genetics 6follow up at [facility] GI - Dr Richey. Multiple endoscopies, all normal. Other diagnosis is Non-ulcer dyspepsia Social History Social History Type Response Smoking Status Never smoker entered on: 02/07/14 Sex Female Patient Care team information Care Team Personnel Name: Mitch Lopez Position: [facility] PCO Associate Professional Member Role: PCP Address: Address: [address] [place] [address] [place] [address]- [place] Care Team Related Persons Name: GABINO CASTANEDA Address: home [address] [place] [address] Name: JERROD BEAUCHAMP Address: [place], [place] Name: BRE MIRANDA Address: [address] [place] [address] Name: ALEYDA BEE Address: home [address] [place] [address] Name: ALEYDA BEE Address: home [address] [place] [address] Name: ROMIE PUENTES Address: home [address] [id number]
--- OUTSIDE RECORDS SUMMARY | 2024-04-05 15:18 | XMS_ITS | Continuity of Care Document ---
Author Organization [facility] Address [address] [place] [address]- Care Team Providers Care Bilingual Account Manager Name Role Phone Mitch Lopez Primary Care Physician [phone] [place] [facility] [place] 03/08[place]21 - 03/15/21 [facility] [address] [place] [address]- Attending Physician: Wu Taylor MD Referring Physician: [...] 12/10/08 Given Influenza Inactive (IM) (oldterm) 16 11/19/08 Give n Influenza Vaccine (oldterm) 17 05/23/07 Given Pneumococcal Vacc (oldterm) 18 07/18/06 Given Not Given Vaccine Date Status Refusal Reason pneumococcal 23-valent vaccine 10/13/13 Not Given Patient Refuses 1Result Comment: Received at [facility] on [facility] [address] 2Admin Note: VIS given 3Admin Note: Administered at [facility] on [address] in [place]. 4Location History: [facility] pharmacy 5Result Comment: [06/27/2014] PT HAD AT [facility] 6Admin Note: VIS GIVEN VIS DATE [...] 0 Refills, Maintenance, 12/04/20 17:24:00 EDT, Tablet, [facility]/pharmacy #1972, Partial fill upon patient request if the prescription is for a schedule II opioid drug., 160.02, cm, 12/04/20 17:05:00 EDT, [place]... Start Date: 12/04/20 Status: Ordered Colace sodium 100 mg oral capsule 100 mg, 1, capsule, By Mouth, 2 times a day, PRN, # 20 capsule, Refills 0, Tot. Refills 0, Maintenance, for constipation, 02/07/21 10:55:00 EDT, Route to Pharmacy Electronically, [facility]/pharmacy #1972, Partial fill upon patient request [...] Weight Start Date: 09/09/20 Status: Ordered cyclobenzaprine 10 mg oral tablet 10 mg, 1, tablet, By Mouth, 2 times a day, PRN, for 7 days, # 14 tablet, Refills 0, Tot. Refills 0,Acute 03/18/21 17:23:00 EDT, for spasm, 03/11/21 17:23:00 EDT, Route to Pharmacy Electronically, [facility]/pharmacy #1972, Partial fill upon patient request... Start Date: 03/11/21 Stop Date: 03/18/21 Status: Ordered diclofenac 1% topical gel 1 application, Topically, 4 times a day, # 100 Gm, 0 Refills, Maintenance, 02/07/21 10:54:00 EDT, Gel, [facility], Partial fill upon [...] Gm, 0 Refills, Maintenance, 08/08/20 15:21:00 EST, [place], [facility], Partial fill upon patient request [...] 05/19/20 16:20:00 EDT, Route to Pharmacy Electronically, [id number], [facility]/pharmacy#1972, 160.02, cm, 04/28/20 13:40:00 EDT, Height, 9... Start Date: 05/19/20 Stop Date: 11/15/20 Status: Ordered ProAir HFA 90 mcg/inh inhalation aerosol with adapter 2, puffs, Inhalation, Every 6 hours, PRN, # 1 each, Refills 5, Tot. Refills 5, Maintenance, 06/16/20 18:28:00 EST, Route to Pharmacy Electronically, [id number], [facility]/pharmacy#1972, 160.02, cm, 05/27/20 13:10:00 EDT, Height, [...] 1 Refills, Soft Stop, 10/07/20 9:06:00 EST, [facility]/pharmacy #1972, Partial fill upon patient request if the prescription is for a schedule II opioid drug., 160.... Start Date: 10/07/20 Status: Ordered verapamil 180 mg oral capsule, extended release 1 capsule, By Mouth, Daily, # 30 capsule, 5 Refills, Maintenance, 02/04/21 9:28:00 EDT, [facility] STORE 09175, 160.02, cm, 01/26/21 9:12:00 EDT, Height, 88.8, [...] Active *Joseph Resendez, Care Coord inator, ICP [phone](Confirmed) Active 1Jantoinette Streeter [facility] 2Case Surveyor Chain Helper Parish [place] ([facility]); Psychiatrist - [...] BRCA1/2 negative,seen by genetics 6follow up at [facility] GI - Dr Richey. Multiple endoscopies, all normal. Other diagnosis is Non-ulcer dyspepsia Vital Signs Most recent to oldest [Reference Range]: 1 Height 160.02 cm (03/08/21 6:21 PM) Oxygen Saturation [94-100 %] 99 % (03/08/21 6:21 PM) Pulse Rate [55-90 bpm] 56 bpm (03/08/21 6:21 PM) Blood Pressure [90-138/55-84 mm Hg] 144/ 94mm Hg *H* (03/08/21 6:21 PM) Respiratory Rate [16-30 br/min] 20 br/mi n (03/08/21 6:21 PM) Temperature [96.8-100.4 DegF] 98.2 DegF (03/08/21 6:21 PM) Mode of Delivery (Oxygen) Room air (03/08/21 6:21 PM) Blood pressure sites Arm, right (03/08/21 6:21 PM) Temperature Route Temporal (03/08/21 6:21 PM) Dry Weight 87.1 kg (03/08/21 6:21 PM) Dry Weight Obtained Via Standing scale (03/08/21 6:21 PM) Social History Social History Type Response Smoking Status Never smoker entered on: 02/07/14 Sex Female
--- OUTSIDE RECORDS SUMMARY | 2024-04-05 15:18 | XMS_ITS | Continuity of Care Document ---
Author Organization [facility] Address [address] [place] [address]- Care Team Providers Care Station Agent Name Role Phone Mitch Lopez Primary Care Physician [phone] Encounter [facility] Date(s): 10/09/23 - 11/08/[address] [address] Attending Physician: Jana Mercado Admitting Physician: AdmtrJana Referring Physician: Admtr, Ar8 [...] 18 07/18/06 Given 1Admin Note: Administered at [facility] on [facility] in [place]. 2Location History: [facility] pharmacy 3Result Comment: [06/27/2014] PT HAD AT [facility] 4Admin Note: VIS GIVEN VIS DATE 01/30/2012 5Admin Note: flulaval vis given vis date 02/22/2011 6Admin Note: vis given 03/09/10 7Result Comment: Received at [facility] on [facility] 8Admin Note: VIS given 9Admin Note: [...] each, 11 Refills, Maintenance, 10/23/23 12:15:00 EDT, [facility]/pharmacy #1972, Partial fill upon patient [...] Gm, 3 Refills, Maintenance, 08/28/23 14:07:00 EST, [facility]/pharmacy #1972, 25, 1 application Topically 4 times a day,PRN: NEEDED,Instr:MODERATE PAIN., 161, cm, 08/16/23 11:00:... Start Date: 08/28/23 Status: Ordered hydrOXYzine hydrochloride 25 mg oral tablet 1 tablet, By Mouth, 2 times a day, PRN NEEDED FOR ANXIETY, # 60 tablet, 2 Refills, Maintenance, 10/17/23 11:01:00 EDT, [facility] STORE 62118, 161, cm, 09/29/23 11:18:00 EST, Height, 82.1, [...] tablet, 0 Refills, Maintenance, 03/31/23 18:55:00 EDT, [facility] STORE 54673, 161, cm, 03/29/23 14:07:00 EDT, Height, 85, [...] Confirmed Active OCD Confirmed Active *Joseph Resendez, Finished Garment Inspector, ICP [phone] Confirmed Active 1Jantoinette Streeter [facility] [place] 2Case Code Enforcement Inspector Parish Proctor ([facility] [...] BRCA1/2 negative,seen by genetics 6follow up at [facility] GI - Dr Richey. Multiple endoscopies, all normal. Other diagnosis is Non-ulcer dyspepsia Social History Social History Type Response Smoking Status Never smoker entered on: 02/07/14 Sex Female Patient Care team information Care Team Personnel Name: Mitch Lopez Position: S PCO Associate Professional Member Role: PCP Address: Address: [address] [place] [address] [place] [address]- Care Team Related Persons Name: GABINO CASTANEDA Address: home [address] [place] [address] Name: JERROD BEAUCHAMP Address: home [place], [place] Name: BRE MIRANDA Address: [address] [place] [address] Name: ALEYDA BEE Address: [address] [place] [address] Name: ALEYDA BEE Address: [address] [place] [address] Name: ROMIE PUENTES Address: home [address] [place] [address]
--- OUTSIDE RECORDS SUMMARY | 2024-04-05 15:18 | XMS_ITS | Continuity of Care Document ---
Author Organization [facility] Address [address] [place] [address]- Care Team Providers Care Cylinder Block Hole Reliner Name Role Phone Mitch Lopez Primary Care Physician [phone] [facility] 04[facility]/22 - 05/15/22 [facility] [address] [place] [id number] Allergies, Adverse Reactions, Alerts Substance Reaction [...] Patient Refuses 1Admin Note: Administered at [facility] on [facility] in [place]. 2Location History: [facility] 3Result Comment: [06/27/2014] PT HAD AT [facility] 4Admin Note: VIS GIVEN VIS DATE 01/30/2012 5Admin Note: flulaval vis given vis date 02/22/2011 6Admin Note: vis given 03/09/10 7Result Comment: Received at [facility] on [facility] 8Admin Note: [...] tablet, 0 Refills, Maintenance, 04/15/22 16:54:00 EDT, [facility]/pharmacy #1972, Partial fill upon patient request if the prescription is for aschedule II opioid drug., 160, cm, 03/15/22 14:14:0... Start Date: 04/15/22 Status: Ordered albuterol CFC free 90 mcg/inh inhalation aerosol 1, puffs, Inhalation, Every 4 hours, PRN, # 6.7 Gm, Refills 3, Tot. Refills 3, Maintenance, 05/04/22 18:39:00 EDT, Aerosol, Route to Pharmacy Electronically, [id number], [facility], [place] to substitute ventolin, 160, cm,... Start Date: 05/04/22 Status: Ordered buPROPion 150 mg/24 hours (XL) [...] 30 tablet, 3 Refills, Maintenance, 01/03/22 11:56:00EDT, [facility]/pharmacy #1972, Partial fill upon patient request if [...] tablet, 0 Refills, Maintenance, 05/12/22 13:13:00 EDT, [facility] STORE [facility], 160, cm, 05/04/22 16:09:00 EDT, Height, 88.2, [...] 01/03/22 11:58:00 EDT, Route to Pharmacy Electronically, [id number], [facility]/pharmacy #1972, 160, cm, 01/03/22 11:03:00 EDT, Height, [...] 11:56:00 EDT, Aerosol, Route to Pharmacy Electronically, [id number], [facility]/pharmacy #1972, 160... Start Date: 01/03/22 Status: Ordered terazosin 2 mg oral capsule 1, capsule, By Mouth, Daily at bedtime, INSTR:CONTINUE TAKING TILL STONE EXPULSION OR TILL 4 WEEKS AND THEN DISCONTINUE., # 30 capsule, Refills 0, Maintenance, 03/28/22 14:40:00 EDT, Route to Pharmacy Electronically, [facility], 160, cm, 03/15/22... Start Date: 03/28/22 Status: [...] # 30 capsule, 5 Refills, [facility], 160.02, cm, 07/05/21 10:30:00EST, Height, 85, kg, [...] Confirmed Active OCD Confirmed Active *Joseph Resendez, Senior Bioinformatics Specialist, ICP [phone] Confirmed Active 1Jantoinette Streeter [facility] [place] [facility] [place] 2Case Associate Director Financial Aid [place] Proctor ([facility]); Psychiatrist [...] BRCA1/2 negative,seen by genetics 6follow up at [facility] GI - Dr Richey. Multiple endoscopies, all normal. Other diagnosis is Non-ulcer dyspepsia Social History Social History Type Response Smoking Status Never smoker entered on: 02/07/14 Sex Female Patient Care team information Personnel Name: Mitch Lopez Address: Address: [address] [place] [address]
--- OUTSIDE RECORDS SUMMARY | 2024-04-05 15:18 | XMS_ITS | Continuity of Care Document ---
Author Organization [facility] Address [address] [place] [address]- Care Team Providers Care Lead Carpenter Name Role Phone Mitch Lopez Primary Care Physician [facility] Date[facility] 12/13/21 - 01/12/22 [facility] [address] [place] [address]- Allergies, Adverse Reactions, Alerts Substance Reaction Severity [...] Given Patient Refuses 1Admin Note: Administered at [facility] on [facility] in [place]. 2Location History: [facility] pharmacy 3Result Comment: [06/27/2014] PT HAD AT [facility] 4Admin Note: VIS GIVEN VIS DATE 01/30/2012 5Admin Note: flulaval vis given vis date 02/22/2011 6Admin Note: vis given 03/09/10 7Result Comment: Received at [facility] on [facility] 8Admin Note: VIS given 9Admin Note: [...] a day, # 120 tablet, 2 Refills, [facility] STORE 25865, 160, cm, 11/22/21 10:23:00 EDT, Height, 88.2, [...] 01/03/22 11:58:00 EDT, Route to Pharmacy Electronically, [id number], [facility]/pharmacy #1972, 160, cm, 01/03/22 11:03:00 EDT, Height, [...] 11:56:00 EDT, Aerosol, Route to Pharmacy Electronically, [id number], [facility]/pharmacy #1972, 160... Start Date: 01/03/22 Status: Ordered Tessalon Perles 100 mg oral capsule 1 capsule = 100 mg, By Mouth, 3 times a day, PRN Cough, # 20 capsule, 0 Refills, Maintenance, 09/16/21 15:25:00 EST, [facility]/pharmacy #1972, Partial fill upon patient request if the prescription is for aschedule II opioid drug., 160.02, cm, 09/16/21 14:3... Start Date: 09/16/21 Status: Ordered verapamil 180 mg oral capsule, extended release 1 capsule, By Mouth, Daily, # 30 capsule, 5 Refills, [facility], 160.02, cm, 07/05/21 10:30:00EST, Height, 85, kg, [...] Active *Joseph Resendez, Care Coord inator, ICP [phone](Confirmed) Active 1Jantoinette Streeter [facility] Psychiatry [place] 2Case Crystallography Teacher [place] Proctor ([facility]); Psychiatrist [...] BRCA1/2 negative,seen by genetics 6follow up at [facility] GI - Dr Desilets. Multiple endoscopies, all normal. Other diagnosis is Non-ulcer dyspepsia Social History Social History Type Response Smoking Status Never smoker entered on: 02/07/14 Sex Female
--- OUTSIDE RECORDS SUMMARY | 2024-04-05 15:18 | XMS_ITS | Continuity of Care Document ---
Author Organization [facility] Address [address] [place] [address]- Care Team Providers Care Under Seal Operator Name Role Phone Mitch Lopez Primary Care Physician [phone] [facility]counter [facility] Date(s): 07/20/20 - 08/19/20 [facility] [address] [place] [address]- Allergies, Adverse Reactions, Alerts Substance Reaction Severity [...] [facility] on [address] in [place]. 4Location History: [facility] pharmacy 5Result Comment: [06/27/2014] PT HAD AT [facility] 6Admin Note: VIS GIVEN VIS DATE [...] Gm, 0 Refills, Maintenance, 08/08/20 15:21:00 EST, [place], [facility]/pharmacy #1972, Partial fill upon patient [...] 07/15/20 20:01:00 EST, Route to Pharmacy Electronically, [facility]/pharmacy #1972, Partial fill upon patient [...] 05/19/20 16:20:00 EDT, Route to Pharmacy Electronically, [id number], [facility]/pharmacy#1972, 160.02, cm, 04/28/20 13:40:00 EDT, Height, 9... Start Date: 05/19/20 Stop Date: 11/15/20 Status: Ordered ProAir HFA 90 mcg/inh inhalation aerosol with adapter 2, puffs, Inhalation, Every 6 hours, PRN, # 1 each, Refills 5, Tot. Refills 5, Maintenance, 06/16/20 18:28:00 EST, Route to Pharmacy Electronically, [id number], [facility]/pharmacy#1972, 160.02, cm, 05/27/20 13:10:00 [...] 30 capsule, 11 Refills, Maintenance, [facility], 160.02, cm, 10/11/19 15:24:00 EDT, Height, 85.91, [...] Active *Joseph Resendez, Care Coord inator, ICP [phone](Confirmed) Active Dyan Streeter [facility] [place] [facility] [place] 2Case Pharmacist [place] Proctor ([facility]); Psychiatrist - Dr Konstantin Narvaez 3admitted at adult partial hospitalization program (adult intensive short term out-pt psychiatric program). 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 BRCA1/2 negative,seen by genetics 6follow up at [facility] GI - Dr Richey. Multiple endoscopies, all normal. Other diagnosis is Non-ulcer dyspepsia Social History Social History Type Response Smoking Status Never smoker entered on: 02/07/14 Sex Female
--- OUTSIDE RECORDS SUMMARY | 2024-04-05 15:18 | XMS_ITS | Continuity of Care Document ---
Author Organization [facility] Address [address] [place] [address]- Care Team Providers Care Sink Maker Name Role Phone Mitch Lopez Primary Care Physician [phone] [place] [facility] [place] 12/04[place]20 - 12/11/20 [facility] [address] [place] [address]- Encounter Diagnosis Seasonal allergies(Discharge Diagnosis) - 12/04/20 Mild dehydration(Discharge Diagnosis) - 12/04/20 Attending Physician: Wu Taylor MD Referring Physician: Micth Lopez Allergies, Adverse Reactions, Alerts Substance Reaction [...] Patient Refuses 1Result Comment: Received at [facility] on [facility] 2Admin Note: VIS given 3Admin Note: Administered at [facility] on [facility] [address] in [place]. 4Location History: [facility] pharmacy 5Result Comment: [06/27/2014] PT HAD AT [facility] 6Admin Note: VIS GIVEN VIS [...] Refills, Maintenance, 12/04/20 17:24:00 EDT, Tablet, [facility]/pharmacy #1972, Partial fill upon patient request if the prescription is for a schedule II opioid drug., 160.02, cm, 12/04/20 17:05:00 EDT, [place]... Start Date: 12/04/20 Status: Ordered Compression Stockings [...] 42.5 Gm, 2 Refills, Maintenance, 09/08/20 14:57:00EST, [facility]/pharmacy #1972, 160.02, cm, 07/29/20 16:36:00 EST, Height, 92.3, kg, 07/24/20 13:24:00 EST, Dry Weight Start Date: 09/08/20 Status: Ordered Flonase 50 mcg/inh nasal spray 1 sprays, Nares, Both, 2 times a day, # 16 Gm, 0 Refills, Maintenance, 08/08/20 15:21:00 EST, [place], [facility]/pharmacy #1972, Partial fill upon patient request if [...] Date: 12/05/20 Stop Date: 12/12/20 Status: Ordered Macrobid macrocrystals-monohydrate 100 mg oral capsule 1 capsule = 100 mg, By Mouth, 2 times a day, for 7 days, # 14 capsule, 0 Refills, Acute 12/12/20 20:56:00 EDT, 12/05/20 20:56:00 EDT, Capsule, [facility], Partial fill upon patient request ifthe prescription is for a schedule II opioid drug.,... Start Date: 12/05/20 Stop Date: 12/12/20 Status: [...] 05/19/20 16:20:00 EDT, Route to Pharmacy Electronically, [id number], [facility]/pharmacy#1972, 160.02, cm, 04/28/20 13:40:00 EDT, Height, 9... Start Date: 05/19/20 Stop Date: 11/15/20 Status: Ordered ProAir HFA 90 mcg/inh inhalation aerosol with adapter 2, puffs, Inhalation, Every 6 hours, PRN, # 1 each, Refills 5, Tot. Refills 5, Maintenance, 06/16/20 18:28:00 EST, Route to Pharmacy Electronically, [id number], [facility]/pharmacy#1972, 160.02, cm, 05/27/20 13:10:00 EDT, Height, 9... [...] Active *Joseph Resendez, Care Coord inator, ICP [phone](Confirmed) Active 1Jantoinette Streeter [facility] Psychiatry [place] 2Case Tobacco Drying Machine Operator Parish Proctor ([facility]); Psychiatrist - Dr Konstantin Narvaez [...] Diagnosis Diagnosis Type Effective Dates Health Status Clinical Service Informant Seasonal allergies Discharge Diagnosis 12/04/20 Mild dehydration Discharge Diagnosis 12/04/20 Vital Signs Most recent to oldest [Reference Range]: 1 Height 160.02 cm (12/04/20 5:05 PM) Oxygen Saturation [94-100 %] 97 % (12/04/20 5:05 PM) Pulse Rate [55-90 bpm] 84 bpm (12/04/20 5:05 PM) Blood Pressure [90-138/55-84 mm Hg] 144/ 65mm Hg *H* (12/04/20 5:05 PM) Respiratory Rate [16-30 br/min] 24 br/mi n (12/04/20 5:05 PM) Temperature [96.8-100.4 DegF] 97.1 DegF (12/04/20 5:05 PM) Mode of Delivery (Oxygen) Room air (12/04/20 5:05 PM) Blood pressure sites Arm, left (12/04/20 5:05 PM) Temperature Route Temporal (12/04/20 5:05 PM) Social History Social History Type Response Smoking Status Never smoker entered on: 02/07/14 Sex Female
--- OUTSIDE RECORDS SUMMARY | 2024-04-05 15:18 | XMS_ITS | Continuity of Care Document ---
Author Organization [facility] Address [address] [place] [address]- Care Team Providers Care Director Sales And Trade Marketing Name Role Phone Mitch Lopez Primary Care Physician [facility] Date(s): 08/08/20 - 09/07/20 [facility] [address] [place] [address]- Attending Physician: Jana Mercado Admitting Physician: AdmJana [...] Given Patient Refuses 1Result Comment: Received at [facility] on [address] 2Admin Note: VIS given 3Admin Note: Administered at [facility] on [address] in [place]. 4Location History: [facility] pharmacy 5Result Comment: [06/27/2014] PT HAD AT [facility] 6Admin Note: VIS GIVEN VIS DATE [...] Gm, 0 Refills, Maintenance, 08/08/20 15:21:00 EST, [place], [facility], Partial fill upon patient request [...] 05/19/20 16:20:00 EDT, Route to Pharmacy Electronically, [id number], [facility]/pharmacy#1972, 160.02, cm, 04/28/20 13:40:00 EDT, Height, 9... Start Date: 05/19/20 Stop Date: 11/15/20 Status: Ordered ProAir HFA 90 mcg/inh inhalation aerosol with adapter 2, puffs, Inhalation, Every 6 hours, PRN, # 1 each, Refills 5, Tot. Refills 5, Maintenance, 06/16/20 18:28:00 EST, Route to Pharmacy Electronically, [id number], [facility]/pharmacy#1972, 160.02, cm, 05/27/20 13:10:00 EDT, Height, [...] 30 capsule, 11 Refills, Maintenance, [facility], 160.02, cm, 10/11/19 15:24:00 EDT, Height, 85.91, [...] Active *Joseph Resendez, Care Coord inator, ICP [phone](Confirmed) Active Dyan Streeter [facility] [place] Psychiatry [place] 2Case [place] Proctor ([facility]); Psychiatrist - Dr Konstantin Nravaez 3admitted at adult partial hospitalization program (adult intensive short term out-pt psychiatric program). 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 BRCA1/2 negative,seen by genetics 6follow up at [facility] GI - Dr Richey. Multiple endoscopies, all normal. Other diagnosis is Non-ulcer dyspepsia Social History Social History Type Response Smoking Status Never smoker entered on: 02/07/14 Sex Female
--- OUTSIDE RECORDS SUMMARY | 2024-04-05 15:18 | XMS_ITS | Continuity of Care Document ---
Author Organization [facility] Address [address] [place] [address]- Care Team Providers Care Technical Delivery Manager Name Role Phone Mitch Lopez Primary Care Physician [phone] Encounter [facility] Date(s): 08/05/23 - 08/12/23 [facility] [address] [place] [address]- Attending Physician: Prachi Olivas MD Referring Physician: [...] Note: Administered at [facility] on [facility] in [place]. 2Location History: [facility] 3Result Comment: [06/27/2014] PT HAD AT [facility] 4Admin Note: VIS GIVEN VIS DATE 01/30/2012 5Admin Note: flulaval vis given vis date 02/22/2011 6Admin Note: vis given 03/09/10 7Result Comment: Received at [facility] on [facility] 8Admin Note: VIS given 9Admin Note: 2nd [...] opioid drug. Start Date: 09/14/22 Status: Ordered [facility] MELATONIN 3 MG TABLET [facility] MELATONIN 3 MG TABLET, 1, [...] Refills, Maintenance, 07/06/23 14:28:00 EST, [facility], 25, USE 1 APPLICATION TOPICALLY 4 TIMES A DAY NEEDED MODERATE PAIN, 161, cm, 07/05/23 10:50:00 EST, He... Start Date: 07/06/23 Status: Ordered hydrOXYzine hydrochloride 25 mg oral tablet 1 tablet, By Mouth, 2 times a day, PRN NEEDED FOR ANXIETY, # 60 tablet, 2 Refills, Maintenance, 06/09/23 19:43:00 EST, [facility], 161, cm, 05/27/23 9:13:00 EDT, Height, 85, kg, 09/16/22 6:46:00 EST, Dry Weight Start Date: 06/09/23 Status: Ordered lidocaine 5% topical film 1 patch, Topically, Daily, PRN NEEDED FOR PAIN REMOVE AFTER 12 HOURS, # 30 patch, 1 Refills, Maintenance, 07/28/23 17:33:00 EST, [facility] STORE 63660, 30, APPLY 1 PATCH TOPICALLY DAILY NEEDED FOR PAIN REMOVE AFTER 12 HOURS, 161, cm, 07/20/23 10:04:00... Start Date: 07/28/23 Status: Ordered Mapap Arthritis Pain 650 mg [...] 30 tablet, 5 Refills, Maintenance, 08/01/23 16:00:00EST, [facility]/pharmacy #1972, Partial fill upon [...] 10/31/22 16:24:00 EDT, Route to Pharmacy Electronically, [facility]/pharmacy #1972, Partial fill upon patien... Start Date: 10/31/22 Status: Ordered nabumetone 500 mg oral tablet 1 tablet, By Mouth, 2 times a day, TAKE WITH FOOD., # 60 tablet, 0 Refills, Maintenance, 03/31/23 18:55:00 EDT, [facility] STORE 53747, 161, cm, 03/29/23 14:07:00 EDT, Height, 85, [...] 10:54:00 EST, Aerosol, Route to Pharmacy Electronically, [id number], [facility], 161... Start Date: 07/05/23 Status: [...] Refills, Maintenance, 03/22/23 11:50:00 EDT, [facility], 161, cm, 03/20/23 17:26:00 EDT, Height, 85, [...] Confirmed Active OCD Confirmed Active *Joseph Resendez, Casing Machine Operator, ICP [phone] Confirmed Active 1Jantoinette Streeter [facility] [place] [facility] [place] 2Case Retail Worker Parish Proctor ([facility]); Psychiatrist - Dr Konstantin Narvaez 3admitted at adult partial hospitalization program (adult intensive short term out-pt psychiatric program). 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 BRCA1/2 negative,seen by genetics 6follow up at [facility] - Dr Richey. Multiple endoscopies, all normal. Other diagnosis is Non-ulcer dyspepsia Vital Signs Most recent to oldest [Reference Range]: 1 Height 161 cm (08/05/23 8:10 AM) Weight 82.1 kg (08/05/23 8:10 AM) Oxygen Saturation [94-100 %] 100 % (08/05/23 8:10 AM) Pulse Rate [55-90 bpm] 73 bpm (08/05/23 8:10 AM) Body Mass Index [18.5-24.99 kg/m2] 31.67 kg/m2 *>HHI* (08/05/23 8:10 AM) Blood Pressure [90-138/55-84 mm Hg] 131/ 67mm Hg (08/05/23 8:10 AM) Temperature [96.8-100.4 DegF] 97.9 DegF (08/05/23 8:10 AM) Mode of Delivery (Oxygen) Room air (08/05/23 8:10 AM) Blood pressure sites Arm, right (08/05/23 8:10 AM) Temperature Route Oral (08/05/23 8:10 AM) Dry Weight 82.1 kg (08/05/23 8:10 AM) Weight Obtained Via Standing scale (08/05/23 8:10 AM) Dry Weight Obtained Via Standing scale (08/05/23 8:10 AM) Social History Social History Type Response Smoking Status Never smoker entered on: 02/07/14 Sex Female Note * Richmond Alonzo: PERFORM, SIGN, VERIFY Event Display: Patient Education/Instruction Authored Date: [id number] [facility] *[facility] Clinical Summary Name PARISH BEAUCHAMP Age 63 Years 1960 [facility]CP [id number] Visit Date 08/05/2023 07:58:00 Additional Instructions: Scheduled Appointments?? Future Appointments ?*[facility] [address] ?[place],??[place],??[address] ?Phone:??--?Fax:??-- ?Appt. Date:??08/16/2023?10:00 AM ?Scheduled Provider:??Mitch Lopez Follow-Up Instructions ?? Diagnosis Medications: Please continue your medications until treatment is completed or stopped by your provider. Discuss any questions related to medications with your provider. Medications to Continue with No Changes These medications were not printed or sent to your pharmacy Acetaminophen (Mapap Arthritis Pain 650 mg oral tablet, extended release) 2 tab(s) Oral every 8 hours as needed as needed for pain. Refills: 1. Next Dose: Albuterol (Ventolin HFA 108 mcg/inh inhalation aerosol with adapter) 2 puff(s) Inhalation every 6 hours as needed for wheezing. BILL BRAND NAME PER INSURANCE. Refills: 5. Next Dose: Aspirin (aspirin 81 mg oral capsule) 1 capsule Oral Daily in the morning. Next Dose: Budesonide-Formoterol (Symbicort 160mcg/4.5mcg Inhaler) 2 puff(s) Inhalation twice a day. rinse mouth and throat after use. Refills: 11. Next Dose: Cetirizine (ZyrTEC 10 mg oral tablet) 1 tab(s) Oral Daily at Bedtime. Refills: 5. Next Dose: Conjugated Estrogens (Premarin 0.3 mg oral tablet) 1 tab(s) Oral Daily. Refills: 11. Next Dose: Diclofenac Topical (diclofenac 1% topical gel) 1 eh Topically 4 times a day as needed. MODERATE PAIN.. Refills: 3. Next Dose: HydrOXYzine (hydrOXYzine hydrochloride 25 mg oral tablet) 1 tab(s) Oral twice a day as needed NEEDED FOR ANXIETY. Refills: 2. Next Dose: Lidocaine Topical (lidocaine 5% topical film) 1 patch(es) Topically Daily as needed NEEDED FOR PAIN REMOVE AFTER 12 HOURS. Refills: 1. Next Dose: Melatonin (melatonin 3 mg oral tablet) 1 tab(s) Oral Daily at Bedtime. Refills: 5. Next Dose: Meloxicam (meloxicam 15 mg oral tablet) 1 tab(s) Oral Daily for 10 Days. for pain take with food please. Refills: 0. Next Dose: Miscellaneous Rx ([facility] 3 MG TABLET) 1 tab(s) Oral Daily at Bedtime. Refills: 3. Next Dose: Montelukast (montelukast 10 mg oral tablet) 1 tab(s) Oral Daily at Bedtime. TAKE 1 TABLET BY MOUTH EVERY DAY IN THE EVENING. Refills: 11. Next Dose: Nabumetone (nabumetone 500 mg oral tablet) 1 tab(s) Oral twice a day. TAKE WITH FOOD.. Refills: 0. Next Dose: Oxycodone (oxyCODONE 5 mg oral capsule) 1 capsule By Mouth Every 4-6 hours; as needed as needed forpain. Next Dose: PredniSONE (predniSONE 10 mg oral tablet) 1 tab(s) Oral Daily. 40mg x 3 days...30mg x 3 days...20mgx 3 days and 10mg x 3 days. Refills: 0. Next Dose: Tiotropium (Spiriva Respimat 1.25 mcg/inh inhalation aerosol) 2 puff(s) Inhalation Daily. Refills: 11. Next Dose: Tramadol (traMADol 50 mg oral tablet) 1 tab(s) Oral twice a day. for severe pain due to rotator cuff tear. may obtain fewer. Refills: 0. Next Dose: Verapamil (verapamil 180 mg oral capsule, extended release) 1 capsule Oral Daily. Refills: 1. Next Dose: Allergy Info:?? Bactrim; Compazine; Motrin; sulfa drugs; prochlorperazine; trimethoprim Medications Given This Visit Future Orders ?US Retroperitoneum Comp? Order Date:08/05/23?- Complete on or after?08/05/23 ?Urine Culture? Order Date:08/05/23?- Complete on or after?08/05/23 Vital Signs Height 161 cm Weight 82.1 kg BMI 31.67 kg/m2 Blood Pressure 131 mm Hg/67 mm Hg Temperature 97.9 DegF Pulse Rate 73 bpm Respiratory Rate 02 Sat Mode of Delivery 100 %/Room air You can now view a summary of your hospital visit from the comfort of your home through a free online portal called [facility]. [facility] is a website that allows you to securely view your medical information including discharge summary, medications and follow-up visits. ??You can alsosend a secure electronic message to your doctor???s office to request appointments, renew medications or just ask a question. You can enroll at [email or web address] or register during your next office visit. Disclaimer:?? The information provided is of a general nature and is intended to be used in conjunction with the recommendations and advice of your health care practitioner. ??Every effort has been made to ensure that the information provided is accurate and complete at the time it is provided to you however, as your needs change, or, as new ??information becomes available, different or additional instructions may be required. If you have questions, please consult with your primary care provider or pharmacist, as appropriate. ??This information is not intended to serve as substitution for assessment and evaluation by a qualified health care provider. If you do not have a primary care provider, you may find a [facility] provider by calling [facility] at [phone]. [facility], in keeping with [facility] guidance, no longer requires face masks for staff, patientsor visitors in most situations. Similar to time spent indoors at other locations, there is the chance that you were exposed to respiratory viruses during your time with us (such as flu or COVID-19).? If you develop symptoms concerning for a viral respiratory infection, please seek testing (and treatment if indicated) from your medical provider or home test kit. For information about the plan of care including goals and instructions for your diagnosis, please see the patient education orders section of this document. Patient Education Materials?? The content of this educational material or handout may have been modified, supplemented, or adapted from its original content and format to support your individualized medical care. Patient Care team information Care Team Personnel Name: Mitch Lopez Position: [facility] PCO Associate Professional Member Role: PCP Address: Address: [address] [place] [address] [place] [address]- Care Team Related Persons Name: GABINO CASTANEDA Address: home [address] [place] [address] Name: JERROD BEAUCHAMP Address: [place], [place] Name: BRE MIRANDA Address: home [address] [place], [place] Name: ALEYDA BEE Address: home [address] [place] [address] Name: ALEYDA BEE Address: home [address] [place], [place] Name: DELORIS ROMIE Address: home [address] [place] [id number]
--- OUTSIDE RECORDS SUMMARY | 2024-04-05 15:18 | XMS_ITS | Continuity of Care Document ---
Author Organization [facility] Address [address] [place] [address]- Care Team Providers Care Permaculture Designer Name Role Phone Mitch Lopez Primary Care Physician [phone] Encounter [facility] Date(s): 03/05/21 - 04/04/21 [facility] [address] [place] [address]- Allergies, Adverse Reactions, Alerts Substance Reaction Severity [...] Given Patient Refuses 1Result Comment: Received at [facility] on [address] 2Admin Note: VIS given 3Admin Note: Administered at [facility] on [address] in [place]. 4Location History: [facility] 5Result Comment: [06/27/2014] PT HAD AT [facility] CENTER [facility] 6Admin Note: VIS GIVEN [...] OF BREATH, # 8.5 Unknown, 5 Refills, [facility] STORE 58811, 25, INHALE 2 PUFFS EVERY 6 HOURS NEEDED FOR WHEEZING/SHORTNESSOF BREATH, 160.02, cm, 03/30/21 15:41:00 EDT, Heigh... Start Date: 03/30/21 Status: Ordered cetirizine 10 mg oral tablet 1 tablet = 10 mg, By Mouth, Daily, # 30 tablet, 0 Refills, Maintenance, 12/04/20 17:24:00 EDT, Tablet, [facility]/pharmacy #1972, Partial fill upon patient request if the prescription is for a schedule II opioid drug., 160.02, cm, 12/04/20 17:05:00 EDT, [place]... Start Date: 12/04/20 Status: Ordered Colace sodium 100 mg oral capsule 100 mg, 1, capsule, By Mouth, 2 times a day, PRN, # 20 capsule, Refills 0, Tot. Refills 0, Maintenance, for constipation, 02/07/21 10:55:00 EDT, Route to Pharmacy Electronically, [facility]/pharmacy #1972, Partial fill upon patient request [...] 0 Refills, Maintenance, 02/07/21 10:54:00 EDT, Gel, [facility]/pharmacy #1972, Partial fill upon patient request if the prescription is for a schedule II opioid drug., 160.02, cm, 02/04/21 15:57:00 EDT, [place]... Start Date: 02/07/21 Status: Ordered diclofenac 1% topical gel = 4 Gm, Topically, 4 times a day, PRN knee pain, Apply to painful knee, # 100 Gm, 0 Refills, Maintenance, 02/16/21 17:40:00 EDT, Gel, [facility]/pharmacy #1972, Partial fill upon patient request [...] Gm, 0 Refills, Maintenance, 08/08/20 15:21:00 EST, [place], [facility], Partial fill upon patient request [...] 0 Refills, Maintenance, 03/08/21 18:54:00 EDT, Tablet, [facility]/pharmacy #1972, Partial fill upon patient request if the prescription is for a schedule II opioid drug., 160.02, cm, 03/08/21 18:21:00... Start Date: 03/08/21 Stop Date: 03/22/21 Status: Ordered ProAir HFA 90 mcg/inh inhalation aerosol with adapter 2, puffs, Inhalation, Every 6 hours, PRN, # 1 each, Refills 5, Tot. Refills 5, Maintenance, 05/19/20 16:20:00 EDT, Route to Pharmacy Electronically, [id number], [facility]/pharmacy#1972, 160.02, cm, 04/28/20 13:40:00 EDT, Height, 9... Start Date: 05/19/20 Stop Date: 11/15/20 Status: Ordered ProAir HFA 90 mcg/inh inhalation aerosol with adapter 2, puffs, Inhalation, Every 6 hours, PRN, # 1 each, Refills 5, Tot. Refills 5, Maintenance, 06/16/20 18:28:00 EST, Route to Pharmacy Electronically, [id number], [facility]/pharmacy#1972, 160.02, cm, 05/27/20 13:10:00 EDT, Height, [...] Refills, Maintenance, 02/04/21 9:28:00 EDT, [facility], 160.02, cm, 01/26/21 9:12:00 EDT, Height, 88.8, [...] Active *Joseph Resendez, Care Coord inator, ICP [phone](Confirmed) Active 1Jantoinette Streeter [facility] [place] [facility] [place] 2Case Butcher Assistant Parish Proctor ([facility]); Psychiatrist - Dr Konstantin Narvaez 3admitted at adult partial hospitalization program (adult intensive short term out-pt psychiatric program). 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 BRCA1/2 negative,seen by genetics 6follow up at [facility] - Dr Richey. Multiple endoscopies, all normal. Other diagnosis is Non-ulcer dyspepsia Social History Social History Type Response Smoking Status Never smoker entered on: 02/07/14 Sex Female
--- OUTSIDE RECORDS SUMMARY | 2024-04-05 15:18 | XMS_ITS | Continuity of Care Document ---
Author Organization [facility] Address [address] [place] [address]- Care Team Providers Care Medical Claims Examiner Name Role Phone Mitch Lopez Primary Care Physician [facility] Date[facility]s): 07/21/21 - 08/20/21 [facility] [address], [place] [address] Allergies, Adverse [...] Given Patient Refuses 1Result Comment: Received at [facility] on [facility] [address] 2Admin Note: VIS given 3Admin Note: Administered at [facility] on [facility] [address] in [place]. 4Location History: [facility] 5Result Comment: [06/27/2014] PT [...] 1 each, 0 Refills, 04/14/21 19:19:00 EDT, [facility]/pharmacy #1972, INHALE 2 PUFFS EVERY 6 HOURS NEEDED FOR WHEEZING/SHORTNESS OF BREATH, 160.02, cm, 04/14/21 14... Start Date: 04/14/21 Status: Ordered Azithromycin 5 Day Dose Pack 250 mg oral tablet See Instructions, as directed on package labeling, # 6 tablet, 0 Refills, Maintenance, 05/05/21 9:14:00 EDT, [facility]/pharmacy #1972, Partial fill upon patient request [...] 06/01/21 18:02:00 EDT, Route to Pharmacy Electronically, [facility]/pharmacy #1972, Partial fill u... Start Date: [...] 42.5 Gm, 2 Refills, Maintenance, 09/08/20 14:57:00EST, [facility]/pharmacy #1972, 160.02, cm, 07/29/20 16:36:00 EST, [...] 0 Refills, Maintenance, 03/08/21 18:54:00 EDT, Tablet, [facility]/pharmacy #1972, Partial fill upon patient request if the prescription is for a schedule II opioid drug., 160.02, cm, 03/08/21 18:21:00... Start Date: 03/08/21 Stop Date: 03/22/21 Status: Ordered ProAir HFA 90 mcg/inh inhalation aerosol with adapter 2, puffs, Inhalation, Every 6 hours, PRN, # 1 each, Refills 5, Tot. Refills 5, Maintenance, 06/28/21 16:04:00 EST, Route to Pharmacy Electronically, [id number], [facility]/pharmacy#1972, 160.02, cm, 06/08/21 8:42:00 EST, Height, 85... Start Date: 06/28/21 Stop Date: 12/25/21 Status: Ordered ProAir HFA 90 mcg/inh inhalation aerosol with adapter 2, puffs, Inhalation, Every 6 hours, PRN, # 1 each, Refills 5, Tot. Refills 5, Maintenance, 05/19/20 16:20:00 EDT, Route to Pharmacy Electronically, [id number], [facility]/pharmacy#1972, 160.02, cm, 04/28/20 13:40:00 EDT, Height, [...] Refills, Maintenance, 02/04/21 9:28:00 EDT, [facility], 160.02, cm, 01/26/21 9:12:00 EDT, Height, 88.8, [...] Active *Joseph Resendez, Care Coord inator, ICP [phone](Confirmed) Active 1Jantoinette Streeter [facility] [place] 2Case Rib Bender Parish Proctor ([facility]); Psychiatrist - Dr Konstantin Narvaez 3admitted [...]
--- OUTSIDE RECORDS SUMMARY | 2024-04-05 15:18 | XMS_ITS | Continuity of Care Document ---
Author Organization [facility] Address [address] [place] [address]- Care Team Providers Care Medical Front Desk Specialist Name Role Phone Mitch Lopez Primary Care Physician [phone] [facility]counter [facility] Date(s): 04/20/20 - 05/20/20 [facility] [address] [place] [address] Allergies, Adverse Reactions, Alerts Substance Reaction Severity Status aspirin wheezing Active Bactrim bruising Active Motrin GI upset Active Compazine unknown Active Immunizations [...] Given Patient Refuses 1Admin Note: Administered at [facility] on [address] in [place]. 2Location History: [facility] pharmacy 3Result Comment: [06/27/2014] PT HAD AT [facility] 4Admin Note: VIS GIVEN VIS [...] Gm, 2 Refills, Maintenance, 03/04/20 12:12:00 EDT, [facility]/pharmacy #1972, 160.02, cm, 03/04/20 11:50:00 EDT, [...] days, # 10 tablet, 0 Refills, Acute 05/24/20 17:00:00 EDT,05/19/20 17:00:00 EDT, Tablet, [facility]/pharmacy #1972, 160.02, cm, 04/28/20 13:40:00 EDT, Height, 92.3,kg, 04/17/20 15:01:00 EDT, Dry Weight Start Date: 05/19/20 Stop Date: 05/24/20 Status: Ordered ProAir HFA 90 mcg/inh inhalation aerosol with adapter 2, puffs, Inhalation, Every 6 hours, PRN, # 1 each, Refills 5, Tot. Refills 5, Maintenance, 05/19/20 16:20:00 EDT, Route to Pharmacy Electronically, [id number], [facility], 160.02, cm, 04/28/20 13:40:00 EDT, Height, 9... Start Date: 05/19/20 Stop Date: 11/15/20 Status: Ordered Rollator Walker Rollator Walker, See [...] EDT, Capsule Start Date: 02/27/19 Status: Ordered Tessalon Perles 100 mg oral capsule 1 capsule = 100 mg, By Mouth, 3 times a day, PRN as needed for cough, for 7 days, # 21 capsule, 1 Refills, Acute 06/02/20 17:00:00 EST, 05/19/20 17:00:00 EDT, Capsule, [facility], 160.02, cm,04/28/20 13:40:00 EDT, Height, 92.3, kg, 04/17/20 1... Start Date: 05/19/20 Stop Date: 06/02/20 Status: Ordered verapamil 100 mg oral capsule, extended release See Instructions, 1 CAPSULE BY MOUTH DAILY AT BEDTIME,X90 DAYS, # 30 capsule, 11 Refills, Maintenance, [facility], 160.02, cm, 10/11/19 15:24:00 EDT, Height, 85.91, [...] stone(Confirmed) Active Chronic migraine(Confirmed) Active OCD(Confirmed) Active *Lukisha [place], Care Coord avril, ICP [phone](Confirmed) Active 1Jantoinette Streeter [facility] [place] [facility] [place] 2Case Supply Chain Technician Parish Proctor ([facility]); Psychiatrist - Dr Konstantin Narvaez 3admitted at adult partial hospitalization program (adult intensive short term out-pt psychiatric program). 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 BRCA1/2 negative,seen by genetics 6follow up at [facility] GI - Dr Richey. Multiple endoscopies, all normal. Other diagnosis is Non-ulcer dyspepsia Social History Social History Type Response Smoking Status Never smoker entered on: 02/07/14 Sex Female
--- OUTSIDE RECORDS SUMMARY | 2024-04-05 15:18 | XMS_ITS | Continuity of Care Document ---
Author Organization [facility] (Formerly [facility])[3] Adult Medicine Address [address] [place] [address]- Care Team Providers Care Terrapin Fisher Name Role Phone Mitch Lopez Primary Care Physician [facility] 04[facility]27/21 - 05/27/21 [facility]3] Adult Medicine [address] [place] [address]- Allergies, Adverse Reactions, Alerts Substance Reaction Severity [...] Given Patient Refuses 1Result Comment: Received at [facility] on [address] 2Admin Note: VIS given 3Admin Note: Administered at [facility] on [address] in [place]. 4Location [facility] 5Result Comment: [06/27/2014] PT HAD AT [facility] 6Admin Note: VIS GIVEN VIS DATE 01/30/2012 [...] 1 each, 0 Refills, 04/14/21 19:19:00 EDT, [facility]/pharmacy #1972, INHALE 2 PUFFS EVERY 6 HOURS NEEDED FOR WHEEZING/SHORTNESS OF BREATH, 160.02, cm, 04/14/21 14... Start Date: 04/14/21 Status: Ordered Azithromycin 5 Day Dose Pack 250 mg oral tablet See Instructions, as directed on package labeling, # 6 tablet, 0 Refills, Maintenance, 05/05/21 9:14:00 EDT, [facility]/pharmacy #1972, Partial fill upon patient request [...] 06/09/21 16:02:00 EST, 05/26/21 16:02:00 EDT, Tablet, [facility]/pharmacy #1972, Partial fill upon patient request if the prescription is for a sche... Start Date: 05/26/21 Stop Date: 06/09/21 Status: Ordered Estrace Vaginal Cream 0.1 mg/g = 1 Gm, Vaginally, Every Monday and , # 42.5 Gm, 2 Refills, Maintenance, 09/08/20 14:57:00EST, [facility]/pharmacy #1972, 160.02, cm, 07/29/20 16:36:00 EST, [...] 0 Refills, Maintenance, 03/08/21 18:54:00 EDT, Tablet, [facility]/pharmacy #1972, Partial fill upon patient request if the prescription is for a schedule II opioid drug., 160.02, cm, 03/08/21 18:21:00... Start Date: 03/08/21 Stop Date: 03/22/21 Status: Ordered ProAir HFA 90 mcg/inh inhalation aerosol with adapter 2, puffs, Inhalation, Every 6 hours, PRN, # 1 each, Refills 5, Tot. Refills 5, Maintenance, 05/19/20 16:20:00 EDT, Route to Pharmacy Electronically, [id number], [facility]/pharmacy#1972, 160.02, cm, 04/28/20 13:40:00 EDT, Height, 9... Start Date: 05/19/20 Stop Date: 11/15/20 Status: Ordered ProAir HFA 90 mcg/inh inhalation aerosol with adapter 2, puffs, Inhalation, Every 6 hours, PRN, # 1 each, Refills 5, Tot. Refills 5, Maintenance, 06/16/20 18:28:00 EST, Route to Pharmacy Electronically, [id number], [facility]/pharmacy#1972, 160.02, cm, 05/27/20 13:10:00 EDT, Height, [...] 1 Refills, Soft Stop, 10/07/20 9:06:00 EST, [facility]/pharmacy #1972, Partial fill upon patient request if the prescription is for a schedule II opioid drug., 160.... Start Date: 10/07/20 Status: Ordered Symbicort 160mcg/4.5mcg Inhaler INHALE 2 PUFFS TWICE A DAY Start Date: 05/05/21 Status: Ordered verapamil 180 mg oral capsule, extended release 1 capsule, By Mouth, Daily, # 30 capsule, 5 Refills, Maintenance, 02/04/21 9:28:00 EDT, [facility], 160.02, cm, 01/26/21 9:12:00 EDT, Height, 88.8, [...] Active OCD(Confirmed) Active *Joseph Resendez, [facility] [phone](Confirmed) Active 1Jantoinette Streeter [facility] Psychiatry [place] 2Case Vice President And Portfolio Manager Parish Proctor ([facility]); Psychiatrist - Dr Konstantin Narvaez 3admitted at adult partial hospitalization program (adult intensive short term out-pt psychiatric program). 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 BRCA1/2 negative,seen by genetics 6follow up at [facility] GI - Dr Richey. Multiple endoscopies, all normal. Other diagnosis is Non-ulcer dyspepsia Social History Social History Type Response Smoking Status Never smoker entered on: 02/07/14 Sex Female
--- OUTSIDE RECORDS SUMMARY | 2024-04-05 15:18 | XMS_ITS | Continuity of Care Document ---
Author Organization [facility] Adult Medicine Address [address] [place] [address]- Care Team Providers Care Community Life Director Name Role Phone Mitch Lopez Primary Care Physician [facility]): 03/12/20 - 04/17/20 [facility] [address] [place] [address]- [facility] Attending Physician: Not on Staff, Attending MD Allergies, Adverse Reactions, Alerts Substance Reaction Severity Status aspirin wheezing Active Motrin GI upset Active Bactrim bruising Active Compazine [...] Patient Refuses 1Admin Note: Administered at [facility] on [address] in [place]. 2Location History: [facility] pharmacy 3Result Comment: [06/27/2014] PT HAD AT [facility] 4Admin Note: VIS GIVEN [...] mg oral tablet 1 tablet, By Mouth, 4 times a day, PRN Pain , Severe, for 3 days, # 12 tablet, 0 Refills, Acute 04/20/20 15:31:00 EDT, 04/17/20 15:31:00 EDT, Partial fill upon patient request Start Date: 04/17/20 Stop Date: 04/20/20 Status: Ordered Blood Pressure Monitor See Instructions, [...] Compound Start Date: 10/16/18 Status: Ordered cyclobenzaprine 5 mg oral tablet 1-2 tablets, By Mouth, 2 times a day, PRN muscle spasm, for 5 days, # 20 tablet, 0 Refills, Acute 04/22/20 15:31:00 EDT, 04/17/20 15:31:00 EDT, Tablet Start Date: 04/17/20 Stop Date: 04/22/20 Status: Ordered Estrace Vaginal Cream 0.1 mg/g [...] 03/12/20 7:19:00 EDT, Route to Pharmacy Electronically, [id number], [facility]/pharmacy #1972, 160.02, cm, [...] 30 capsule, 11 Refills, Maintenance, [facility], 160.02, cm, 10/11/19 15:24:00 EDT, Height, 85.91, [...] Active OCD(Confirmed) Active *Joseph Resendez, [facility] [phone](Confirmed) Active Dyan Streeter [facility] Psychiatry [place] 2Case Legal Executive Parish Proctor ([facility]); Psychiatrist - Dr Konstantin Narvaez 3admitted [...]
--- OUTSIDE RECORDS SUMMARY | 2024-04-05 15:18 | XMS_ITS | Continuity of Care Document ---
Author Organization [facility] Address [address] [place] [address]- Care Team Providers Care Internal Consultant Name Role Phone Mitch Lopez Primary Care Physician [facility]): 06/14/19 - 07/17/19 [facility] [address] [place] [address]- [facility] Attending Physician: Jorge Fregoso MD Admitting Physician: Jorge Fregoso MD Allergies, Adverse Reactions, Alerts Substance Reaction [...] Administered at [facility] on [address] in [place]. [facility] 3Result Comment: [06/27/2014] PT HAD AT [facility] 4Admin Note: VIS GIVEN VIS [...] Maintenance,04/11/19 15:43:33 EDT, Route to Pharmacy Electronically, [id number], [facility]/pharmacy #1972 Start Date: 04/11/19 Stop Date: 10/08/19 [...] 11:54:22 EDT Start Date: 11/27/18 Status: Ordered oxyCODONE 5 mg oral tablet 5 mg, 1, tablet, By Mouth, 3 times a day, for 14 days, spinal nerve root compression, # 42 tablet, Refills 0, Tot. Refills 0, Acute 07/18/19 14:20:40 EST, 07/04/19 14:20:40 EST, Route to Pharmacy Electronically, [id number]. Start Date: 07/04/19 Stop Date: 07/18/19 Status: Ordered POISE PADS POISE PADS, See Instructions, # 180 each, Refills 5, Tot. Refills 5, Maintenance, For stress incontinence (N93.3), Cystoscopy (Z98.890)., 02/27/19 14:16:26 EDT, Compound Start Date: 02/27/19 Status: Ordered ProAir HFA 90 mcg/inh inhalation aerosol with adapter 2, puffs, Inhalation, Every 6 hours, PRN, # 1 each, Refills 5, Tot. Refills 5, Maintenance, 04/11/19 15:43:08 EDT, Route to Pharmacy Electronically, [id number], [facility]/pharmacy#1972 Start Date: 04/11/19 Stop Date: 10/08/19 Status: [...] Chronic migraine(Confirmed) Active OCD(Confirmed) Active 1Jantoinette Streeter [facility] Psychiatry [place] 2Case Barber Shop Manager Parish Proctor ([facility]); Psychiatrist - Dr Konstantin Narvaez 3admitted at adult partial hospitalization program (adult intensive short term out-pt psychiatric program). 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 BRCA1/2 negative,seen by genetics 6follow up at [facility] GI - Dr Richey. Multiple endoscopies, all normal. Other diagnosis is Non-ulcer dyspepsia Social History Social History Type Response Smoking Status Never smoker entered on: 02/07/14 Sex Female
--- OUTSIDE RECORDS SUMMARY | 2024-04-05 15:18 | XMS_ITS | Continuity of Care Document ---
Author Organization [facility] Adult Medicine Address [address] [place] [address]- Care Team Providers Care City Designer Name Role Phone Mitch Lopez Primary Care Physician [phone] [facility]): 05/07/20 - 06/06/20 [facility] [address] [place] [address]- Allergies, Adverse Reactions, Alerts Substance Reaction Severity [...] Given Patient Refuses 1Result Comment: Received at [facility] on [address] 2Admin Note: VIS given 3Admin Note: Administered at [facility] on [address] in [place]. 4Location History: [facility] pharmacy 5Result Comment: [06/27/2014] PT HAD AT [facility] 6Admin Note: VIS GIVEN VIS [...] Gm, 2 Refills, Maintenance, 03/04/20 12:12:00 EDT, [facility]/pharmacy #1972, 160.02, cm, 03/04/20 11:50:00 EDT, [...] 05/19/20 16:20:00 EDT, Route to Pharmacy Electronically, [id number], [facility]/pharmacy#1972, 160.02, cm, 04/28/20 13:40:00 EDT, [...] 30 capsule, 11 Refills, Maintenance, [facility], 160.02, cm, 10/11/19 15:24:00 EDT, Height, 85.91, [...] Active *Joseph Resendez, Care Coord inator, ICP [phone](Confirmed) Active 1Jantoinette Streeter [facility] Psychiatry [place] 2Case Manufacturing Baker Parish Proctor ([facility]); Psychiatrist - Dr Konstantin Narvaez 3admitted at adult partial hospitalization program (adult intensive short term out-pt psychiatric program). 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 BRCA1/2 negative,seen by genetics 6follow up at [facility] GI - Dr Richey. Multiple endoscopies, all normal. Other diagnosis is Non-ulcer dyspepsia Social History Social History Type Response Smoking Status Never smoker entered on: 02/07/14 Sex Female
--- OUTSIDE RECORDS SUMMARY | 2024-04-05 15:18 | XMS_ITS | Continuity of Care Document ---
Author Organization [facility] Adult Medicine Address [address] [place] [address]- Care Team Providers Care Vocational Nursing Instructor Name Role Phone Mitch Lopez Primary Care Physician [facility]): 08/08/23 - 09/07/23 [facility] Adult Medicine [address] [place], [place] [address] Allergies, Adverse Reactions, Alerts Substance Reaction Severity Status trimethoprim Urticaria Active sulfa drugs Breathing problem Active Compazine unknown Active Bactrim bruising Active Motrin Breathing problem GI upset Active prochlorperazine Unknown Active Immunizations Given and Recorded Vaccine Date [...] 18 07/18/06 Given 1Admin Note: Administered at [facility] on [facility] in [place]. 2Location History: [facility] pharmacy 3Result Comment: [06/27/2014] PT HAD AT [facility] 4Admin Note: VIS GIVEN VIS DATE 01/30/2012 5Admin Note: flulaval vis given vis date 02/22/2011 6Admin Note: vis given 03/09/10 7Result Comment: Received at [facility] on [facility] 8Admin [...] opioid drug. Start Date: 09/14/22 Status: Ordered [facility] MELATONIN 3 MG TABLET [facility] MELATONIN 3 MG TABLET, 1, tablet, By Mouth, Daily at bedtime, # 30 tablet, 3 Refills, Maintenance, 03/31/23 18:55:00 EDT, 161, cm, 03/29/23 14:07:00 EDT, Height, 85, kg, 09/16/22 6:46:00 EST, DryWeight Start Date: 03/31/23 Status: Ordered diclofenac 1% topical gel 1 application, Topically, 4 times a day, PRN NEEDED, MODERATE PAIN., # 100 Gm, 3 Refills, Maintenance, 08/28/23 14:07:00 EST, [facility]/pharmacy #1972, 25, 1 application Topically 4 times a day,PRN: NEEDED,Instr:MODERATE PAIN., 161, cm, 08/16/23 11:00:... Start Date: 08/28/23 Status: Ordered hydrOXYzine hydrochloride 25 mg oral tablet 1 tablet, By Mouth, 2 times a day, PRN NEEDED FOR ANXIETY, # 60 tablet, 2 Refills, Maintenance, 06/09/23 19:43:00 EST, [facility], 161, cm, 05/27/23 9:13:00 EDT, Height, 85, kg, 09/16/22 6:46:00 EST, Dry Weight Start Date: 06/09/23 Status: Ordered lidocaine 5% topical film 1 patch, Topically, Daily, PRN NEEDED FOR PAIN REMOVE AFTER 12 HOURS, # 30 patch, 1 Refills, Maintenance, 07/28/23 17:33:00 EST, [facility], 30, APPLY 1 PATCH TOPICALLY DAILY NEEDED [...] tablet, 0 Refills, Maintenance, 03/31/23 18:55:00 EDT, [facility] STORE 93972, 161, cm, 03/29/23 14:07:00 EDT, Height, 85, [...] 10:54:00 EST, Aerosol, Route to Pharmacy Electronically, [id number], [facility], 161... Start Date: 07/05/23 Status: [...] Refills, Maintenance, 03/22/23 11:50:00 EDT, [facility], 161, cm, 03/20/23 17:26:00 EDT, Height, 85, [...] Active OCD Confirmed Active *Joseph Resendez, Farm Service Adviser, ICP [phone] Confirmed Active 1Jantoinette Streeter [facility] [place] [facility] [place] 2Case Forensic Sergeant Parish Proctor ([facility]); Psychiatrist - Dr Konstantin Narvaez 3admitted at adult partial hospitalization program (adult intensive short term out-pt psychiatric program). 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 BRCA1/2 negative,seen by genetics 6follow up at [facility] GI - Dr Richey. Multiple endoscopies, all normal. Other diagnosis is Non-ulcer dyspepsia Social History Social History Type Response Smoking Status Never smoker entered on: 02/07/14 Sex Female Patient Care team information Care Team Personnel Name: Mitch Lopez Position: S PCO Associate Professional Member Role: PCP Address: Address: [address] [place] [address] [place] [address]- Care Team Related Persons Name: GABINO CASATNEDA Address: home [address] [place] [address] Name: JERROD BEAUCHAMP Address: [place], [place] Name: BRE MIRANDA Address: home [address] [place] [address] Name: ALEYDA BEE Address: home [address] [place] [address] Name: ALEYDA BEE Address: home [address] [place] [address] Name: ROMIE PUENTES Address: home [address] [place] [id number]
--- OUTSIDE RECORDS SUMMARY | 2024-04-05 15:19 | XMS_ITS | Continuity of Care Document ---
Author Organization [facility] Adult Medicine Address [address] [place] [address]- Care Team Providers Care Cross Country/Track And Field Coach Name Role Phone Mitch Lopez Primary Care Physician [facility]): 08/29/23 - 09/28/23 [facility] Adult Medicine [address] [place] [address] Allergies, Adverse Reactions, Alerts Substance Reaction [...] 18 07/18/06 Given 1Admin Note: Administered at [facility] on [facility] [address] [facility] in [place]. 2Location History: [facility] pharmacy 3Result Comment: [06/27/2014] PT HAD AT [facility] 4Admin Note: VIS GIVEN VIS DATE 01/30/2012 5Admin Note: flulaval vis given vis date 02/22/2011 6Admin Note: vis given 03/09/10 7Result Comment: Received at [facility] on [facility] 8Admin Note: VIS given 9Admin [...] opioid drug. Start Date: 09/14/22 Status: Ordered [facility] MELATONIN 3 MG TABLET [facility] MELATONIN 3 MG TABLET, 1, tablet, By Mouth, Daily at bedtime, # 30 tablet, 3 Refills, Maintenance, 03/31/23 18:55:00 EDT, 161, cm, 03/29/23 14:07:00 EDT, Height, 85, kg, 09/16/22 6:46:00 EST, DryWeight Start Date: 03/31/23 Status: Ordered diclofenac 1% topical gel 1 application, Topically, 4 times a day, PRN NEEDED, MODERATE PAIN., # 100 Gm, 3 Refills, Maintenance, 08/28/23 14:07:00 EST, [facility]/pharmacy #1972, 25, 1 application Topically 4 times a day,PRN: NEEDED,Instr:MODERATE PAIN., 161, cm, 08/16/23 11:00:... Start Date: 08/28/23 Status: Ordered hydrOXYzine hydrochloride 25 mg oral tablet 1 tablet, By Mouth, 2 times a day, PRN NEEDED FOR ANXIETY, # 60 tablet, 2 Refills, Maintenance, 06/09/23 19:43:00 EST, [facility], 161, cm, 05/27/23 9:13:00 EDT, Height, 85, kg, 09/16/22 6:46:00 EST, Dry Weight Start Date: 06/09/23 Status: Ordered lidocaine 5% topical film 1 patch, Topically, Daily, PRN NEEDED FOR PAIN REMOVE AFTER 12 HOURS, # 30 patch, 1 Refills, Maintenance, 07/28/23 17:33:00 EST, [facility], 30, APPLY 1 PATCH TOPICALLY DAILY NEEDED FOR PAIN REMOVE AFTER 12 HOURS, 161, cm, 07/20/23 10:04:00... Start Date: 07/28/23 Status: Ordered Lidoderm 5% film 1 patch, Topically, Daily, remove patches after 12 hours, # 30 patch, 0 Refills, Maintenance, 08/16/23 11:10:00 EST, [facility]/pharmacy #1972, Partial fill [...] tablet, 0 Refills, Maintenance, 03/31/23 18:55:00 EDT, [facility] STORE 33664, 161, cm, 03/29/23 14:07:00 EDT, Height, 85, [...] tablet, 0 Refills, Maintenance, 07/02/23 8:58:00 EST, [facility]/pharmacy #1972, Partial fill [...] 10:54:00 EST, Aerosol, Route to Pharmacy Electronically, [id number], [facility]/pharmacy #1972, 161... Start Date: 07/05/23 Status: [...] Confirmed Active OCD Confirmed Active *Joseph Resendez, Supervisor Wheel Shop, [facility] [phone] Confirmed Active 1Jantoinette Streeter [facility]iat[facility] [place] 2Case Rn Night Parish Proctor ([facility]); Psychiatrist - Dr Konstantin Narvaez [...] Care Team Personnel Name: Mitch Lopez Position: [facility] PCO Associate Professional Member Role: PCP Address: Address: [address] [place] [address] [place] [address]- [place] Care Team Related Persons Name: GABINO CASTANEDA Address: home [address] [place] [address] Name: JERROD BEAUCHAMP Address: [place], [place] Name: BRE MIRANDA Address: home [address] [place] [address] Name: ALEYDA BEE Address: home [address] [place] [address] Name: ALEYDA BEE Address: home [address] [place] [address] Name: ROMIE PUENTES Address: home [address] [place] [phone]
--- OUTSIDE RECORDS SUMMARY | 2024-04-05 15:19 | XMS_ITS | Continuity of Care Document ---
Author Organization [facility] Address [address] [place] [address]- Care Team Providers Care County Treasurer Name Role Phone Mitch Lopez Primary Care Physician [facility]): 08/05/20 - 09/04/20 [facility] [address] [place], [place] [address] Allergies, Adverse Reactions, Alerts Substance Reaction [...] Given Patient Refuses 1Result Comment: Received at [facility] on [address] 2Admin Note: VIS given 3Admin Note: Administered at [facility] on [address] in [place]. 4Location History: [facility] pharmacy 5Result Comment: [06/27/2014] PT HAD AT [facility] 6Admin Note: VIS GIVEN VIS DATE [...] Gm, 0 Refills, Maintenance, 08/08/20 15:21:00 EST, [place], [facility]/pharmacy #1972, Partial fill upon patient request [...] 07/15/20 20:01:00 EST, Route to Pharmacy Electronically, [facility]/pharmacy #1972, Partial fill upon patient request [...] 05/19/20 16:20:00 EDT, Route to Pharmacy Electronically, [id number], [facility]/pharmacy#1972, 160.02, cm, 04/28/20 13:40:00 EDT, Height, 9... Start Date: 05/19/20 Stop Date: 11/15/20 Status: Ordered ProAir HFA 90 mcg/inh inhalation aerosol with adapter 2, puffs, Inhalation, Every 6 hours, PRN, # 1 each, Refills 5, Tot. Refills 5, Maintenance, 06/16/20 18:28:00 EST, Route to Pharmacy Electronically, [id number], [facility]/pharmacy#1972, 160.02, cm, 05/27/20 13:10:00 EDT, [...] 30 capsule, 11 Refills, Maintenance, [facility], 160.02, cm, 10/11/19 15:24:00 EDT, Height, 85.91, [...] Active *Joseph Resendez, Care Coord inator, ICP [phone](Confirmed) Active Dyan Streeter [facility] [place] Psychiatry [place] 2Case Production Planning Supervisor Parish Proctor ([facility]); Psychiatrist - Dr Konstantin Narvaez 3admitted at adult partial hospitalization program (adult intensive short term out-pt psychiatric program). 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 BRCA1/2 negative,seen by genetics 6follow up at [facility] GI - Dr Richey. Multiple endoscopies, all normal. Other diagnosis is Non-ulcer dyspepsia Social History Social History Type Response Smoking Status Never smoker entered on: 02/07/14 Sex Female
--- OUTSIDE RECORDS SUMMARY | 2024-04-05 15:19 | XMS_ITS | Continuity of Care Document ---
Author Organization [facility] Address [address] [place] [address]- Care Team Providers Care Soda Maker Name Role Phone Mitch Lopez Primary Care Physician [phone] [facility] 07/04/22 - 08/03/22 [facility] [address] [place], [place] [address] Allergies, Adverse Reactions, Alerts Substance [...] Given Patient Refuses 1Admin Note: Administered at [facility] on [facility] in [place]. 2Location History: [facility] pharmacy 3Result Comment: [06/27/2014] PT HAD AT [facility] 4Admin Note: VIS GIVEN VIS DATE 01/30/2012 5Admin Note: flulaval vis given vis date 02/22/2011 6Admin Note: vis given 03/09/10 7Result Comment: Received at [facility] on [facility] 8Admin Note: VIS given 9Admin Note: [...] tablet, 0 Refills, Maintenance, 04/15/22 16:54:00 EDT, [facility]/pharmacy #1972, Partial fill upon patient request [...] patch, 1 Refills, Maintenance, 07/07/22 18:54:00 EST, [facility] STORE 54968, 30, APPLY 1 PATCH TOPICALLY DAILY NEEDED [...] tablet, 0 Refills, Maintenance, 06/19/22 12:17:00 EST, [facility] STORE 62011, 160, cm, 06/07/22 9:36:00 EST, Height, 88.2, [...] Refills, Soft Stop, 06/07/22 10:25:00 EST, [place], [facility]/pharmacy #1972, Partial fill upon patient request if [...] 1 Refills, Soft Stop, 10/07/20 9:06:00 EST, [facility]/pharmacy #1972, Partial fill upon patient request if the prescription is for a schedule II opioid drug., 160.... Start Date: 10/07/20 Status: Ordered Symbicort 160mcg/4.5mcg Inhaler 2, puffs, Inhalation, 2 times a day, rinse mouth and throat after use, # 10.2 Gm, Refills 11, Tot. Refills 11, Maintenance, 06/07/22 10:22:00 EST, Aerosol, Route to Pharmacy Electronically, [id number], [facility]/pharmacy #1972, 160... Start Date: 06/07/22 Status: Ordered terazosin 2 mg oral capsule 1, capsule, By Mouth, Daily at bedtime, INSTR:CONTINUE TAKING TILL STONE EXPULSION OR TILL 4 WEEKS AND THEN DISCONTINUE., # 30 capsule, Refills 0, Maintenance, 03/28/22 14:40:00 EDT, Route to Pharmacy Electronically, [facility] STORE 25529, 160, cm, 03/15/22... Start Date: 03/28/22 Status: [...] Refills, Maintenance, 06/16/22 9:46:00 EST, [facility], 160, cm, 06/07/22 9:36:00 EST, Height, 88.2, [...] Confirmed Active OCD Confirmed Active *Joseph Resendez, Special Education Administrator, ICP [phone] Confirmed Active 1Jantoinette Streeter [facility] [place] [facility] [place] 2Case Ancient Art Curator [place] ([facility]); Psychiatrist - Dr Konstantin Narvaez 3admitted at adult partial hospitalization program (adult intensive short term out-pt psychiatric program). 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 BRCA1/2 negative,seen by genetics 6follow up at [facility] GI - Dr Richey. Multiple endoscopies, all normal. Other diagnosis is Non-ulcer dyspepsia Social History Social History Type Response Smoking Status Never smoker entered on: 02/07/14 Sex Female Patient Care team information Care Team Personnel Name: Mitch Lopez Position: S PCO Associate Professional Member Role: PCP Address: Address: [address] [place] [address] [place] [address]- [place] Care Team Related Persons Name: GABINO CASTANEDA Address: home [address] [place] [address] Name: BRE MIRANDA Address: [address] [place] [address] Name: ALEYDA BEE Address: [address] [place] [address] Name: ALEYDA BEE Address: home [address] [place] [address] Name: ROMIE PUENTES Address: home [address] [place] [address]
--- OUTSIDE RECORDS SUMMARY | 2024-04-05 15:19 | XMS_ITS | Continuity of Care Document ---
Author Organization [facility] Address [address] [place] [address]- Care Team Providers Care Assistive Technology Specialist Name Role Phone Mitch Lopez Primary Care Physician [facility] Date[facility]s): 10/29/20 - 11/28/20 [facility] [address] [place] [address]- Allergies, Adverse Reactions, Alerts Substance Reaction Severity [...] Given Patient Refuses 1Result Comment: Received at [facility] on [address] 2Admin Note: VIS given 3Admin Note: Administered at [facility] on [address] in [place]. 4Location History: [facility] pharmacy 5Result Comment: [06/27/2014] PT HAD AT [facility] 6Admin Note: VIS GIVEN VIS DATE 01/30/2012 [...] EDT, Compound Start Date: 10/16/18 Status: Ordered [facility] MELATONIN 3 MG TABLET [facility] MELATONIN 3 MG TABLET, [...] 42.5 Gm, 2 Refills, Maintenance, 09/08/20 14:57:00EST, [facility]/pharmacy #1972, 160.02, cm, 07/29/20 16:36:00 EST, Height, 92.3, kg, 07/24/20 13:24:00 EST, Dry Weight Start Date: 09/08/20 Status: Ordered Flonase 50 mcg/inh nasal spray 1 sprays, Nares, Both, 2 times a day, # 16 Gm, 0 Refills, Maintenance, 08/08/20 15:21:00 EST, [place], [facility], Partial fill upon patient request [...] tablet, 2 Refills, Maintenance, 11/06/20 17:02:00 EDT, [facility]/pharmacy #1972, Partial fill upon patient request if the prescription is for a schedule II opioid drug.... Start Date: 11/06/20 Status: Ordered ibuprofen 600 mg oral tablet 600 mg, 1, tablet, By Mouth, 4 times a day, PRN, # 40 tablet, Refills 0, Tot. Refills 0, Maintenance, for pain, 07/15/20 20:01:00 EST, Route to Pharmacy Electronically, [facility]/pharmacy #1972, Partial fill upon patient request if the prescription is for a... Start Date: 07/15/20 Status: Ordered melatonin 3 mg oral tablet 1 tablet = 3 mg, By Mouth, Daily at bedtime, # 30 tablet, 2 Refills, Maintenance, 10/07/20 9:05:00 EST, [facility]/pharmacy #1972, Partial fill upon patient request if the prescription is for a schedule II opioid drug., 160.02, cm, 10/07/20 8:15:00 EST, [place]... Start Date: 10/07/20 Status: Ordered nitrofurantoin macrocrystals 50 mg oral capsule 1 capsule = 50 mg, By Mouth, 4 times a day, for 7 days, # 28 capsule, 0 Refills, Acute 12/01/20 16:12:00 EDT, 11/24/20 16:12:00 EDT, Capsule, [facility]/pharmacy #1972, Partial fill upon patient request if the prescription is for a schedule II opioid drug.,... Start Date: 11/24/20 Stop Date: 12/01/20 Status: Ordered POISE PADS POISE PADS, See Instructions, # 180 each, Refills 5, Tot. Refills 5, Maintenance, For stress incontinence (N93.3), Cystoscopy (Z98.890)., 02/27/19 14:16:26 EDT, Compound Start Date: 02/27/19 Status: Ordered ProAir HFA 90 mcg/inh inhalation aerosol with adapter 2, puffs, Inhalation, Every 6 hours, PRN, # 1 each, Refills 5, Tot. Refills 5, Maintenance, 05/19/20 16:20:00 EDT, Route to Pharmacy Electronically, [id number], [facility]/pharmacy#1972, 160.02, cm, 04/28/20 13:40:00 EDT, Height, 9... Start Date: 05/19/20 Stop Date: 11/15/20 Status: Ordered ProAir HFA 90 mcg/inh inhalation aerosol with adapter 2, puffs, Inhalation, Every 6 hours, PRN, # 1 each, Refills 5, Tot. Refills 5, Maintenance, 06/16/20 18:28:00 EST, Route to Pharmacy Electronically, [id number], [facility]/pharmacy#1972, 160.02, cm, 05/27/20 13:10:00 EDT, [...] stone(Confirmed) Active Chronic migraine(Confirmed) Active OCD(Confirmed) Active *Kendell Sanchez, ICP [phone](Confirmed) Active 1Jantoinette Streeter [facility] [place] [facility] [place] 2Case Field Operations Manager [place] ([facility]); Psychiatrist - Dr Konstantin Narvaez [...] negative,seen by genetics 6follow up at [facility] GI - Dr Richey. Multiple endoscopies, all normal. Other diagnosis is Non-ulcer dyspepsia Social History Social History Type Response Smoking Status Never smoker entered on: 02/07/14 Sex Female
--- OUTSIDE RECORDS SUMMARY | 2024-04-05 15:19 | XMS_ITS | Continuity of Care Document ---
Author Organization [facility] Address [address] [place] [address] [address], [address] [place] [address]- Care Team Providers Care Director Sales Name Role Phone Mitch Lopez Primary Care Physician [phone] Encounter [facility] Date(s): 07/22/19 - 07/29/19 [facility] [address] [place] [address] Drive, [address] [place] [address]- [facility] Attending Physician: Deysi Gomez DO Referring Physician: Mitch Lopez Allergies, Adverse [...] [facility] on [facility] [address] in [place]. 2Location History: [facility] pharmacy 3Result Comment: [06/27/2014] PT HAD AT [facility] 4Admin Note: VIS GIVEN VIS DATE [...] 13:54:37, Compound Start Date: 09/07/17 Status: Ordered benzonatate 200 mg oral capsule 1 capsule = 200 mg, By Mouth, 3 times a day, PRN as needed for cough, for 14 days, do not crush or chew, # 40 capsule, 0 Refills, Acute 08/08/19 14:47:00 EST, 07/25/19 14:47:00 EST, Capsule, [facility]/pharmacy #1972, 158, cm, 07/25/19 13:55:00 EST, Height,... Start Date: 07/25/19 Stop Date: 08/08/19 Status: Ordered Blood Pressure Monitor See Instructions, [...] Maintenance,04/11/19 15:43:33 EDT, Route to Pharmacy Electronically, [id number], [facility]/pharmacy #1972 Start Date: 04/11/19 Stop [...] tablet, By Mouth, 3 times a day, spinal nerve root compression pain. may obtain fewer, # 42 tablet, Refills 0, Tot. Refills 0, Maintenance, 07/29/19 16:15:00 EST, Route to Pharmacy Electronically, [facility]/pharmacy #1972, Partial fill upon patient... Start Date: 07/29/19 Status: Ordered POISE PADS POISE PADS, See Instructions, # 180 each, Refills 5, Tot. Refills 5, Maintenance, For stress incontinence (N93.3), Cystoscopy (Z98.890)., 02/27/19 14:16:26 EDT, Compound Start Date: 02/27/19 Status: Ordered predniSONE 20 mg oral tablet 2 tablet = 40 mg, By Mouth, Daily, for 5 days, # 10 tablet, 0 Refills, Acute 07/30/19 14:47:00 EST,07/25/19 14:47:00 EST, Tablet, [facility]/pharmacy #1972, 158, cm, 07/25/19 13:55:00 EST, Height, 91.3, kg, 03/26/19 13:12:00 EDT, Dry Weight Start Date: 07/25/19 Stop Date: 07/30/19 Status: Ordered ProAir HFA 90 mcg/inh inhalation aerosol with adapter 2, puffs, Inhalation, Every 6 hours, PRN, # 1 each, Refills 5, Tot. Refills 5, Maintenance, 07/25/19 14:29:00 EST, Route to Pharmacy Electronically, [id number], [facility]/pharmacy#1972, 158, cm, 07/25/19 13:55:00 EST, Height, 91.3... Start Date: 07/25/19 Stop Date: 01/21/20 Status: Ordered Spiriva HandiHaler 18 mcg Inhalation [...] Chronic migraine(Confirmed) Active OCD(Confirmed) Active 1Jantoinette Streeter [facility] [place] 2Case Galley Stripper [place] ([facility]); Psychiatrist - Dr Konstantin Narvaez 3admitted at adult partial hospitalization program (adult intensive short term out-pt psychiatric program). 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 BRCA1/2 negative,seen by genetics 6follow up at [facility] GI - Dr Richey. Multiple endoscopies, all normal. Other diagnosis is Non-ulcer dyspepsia Vital Signs Most recent to oldest [Reference Range]: 1 Height 158 cm (07/22/19 1:13 PM) Weight 92.1 kg (07/22/19 1:13 PM) Body Mass Index [18.5-24.99] 36.89 *>HHI* (07/22/19 1:13 PM) Social History Social History Type Response Smoking Status Never smoker entered on: 02/07/14 Sex Female
--- OUTSIDE RECORDS SUMMARY | 2024-04-05 15:19 | XMS_ITS | Continuity of Care Document ---
Author Organization [facility] Address [address] [place] [address]- Care Team Providers Care Lead Software Development Engineer Name Role Phone Mitch Lopez Primary Care Physician [facility]s): 12/07/22 - 01/06/23 [facility] [address] [place] [address]- Allergies, Adverse Reactions, Alerts Substance Reaction Severity Status sulfa drugs Breathing problem Active Compazine unknown [...] Given Patient Refuses 1Admin Note: Administered at [facility] on [facility] in [place]. 2Location History: [facility] pharmacy 3Result Comment: [06/27/2014] PT HAD AT [facility] 4Admin Note: VIS GIVEN VIS DATE 01/30/2012 5Admin Note: flulaval vis given vis date 02/22/2011 6Admin Note: vis given 03/09/10 7Result Comment: Received at [facility] on [facility] 8Admin Note: VIS given 9Admin [...] patch, 1 Refills, Maintenance, 07/07/22 18:54:00 EST, [facility] STORE 92392, 30, APPLY 1 PATCH TOPICALLY DAILY NEEDED [...] 10/31/22 16:24:00 EDT, Route to Pharmacy Electronically, [facility]/pharmacy #1972, Partial fill upon patien... Start [...] tablet, 11 Refills, Maintenance, 07/12/22 14:20:00 EST, [facility]/pharmacy #1972, Partial fill upon patient request [...] 19:11:00 EDT, Aerosol, Route to Pharmacy Electronically, [id number], [facility]/pharmacy #1972, 161... Start Date: 11/24/22 Status: [...] Chronic migraine Confirmed Active OCD Confirmed Active *Lukisha Mal, Php Engineer, ICP [phone] Confirmed Active 1Jantoinette Streeter [facility] [place] [facility] [place] 2Case Tube Sizer Operator [place] ([facility]); Psychiatrist [...] Professional Member Role: PCP Address: Address: [address] [place] [address] [place] [address]- Care Team Related Persons Name: GABINO CASTANEDA Address: home [address] [place] [address] Name: JERROD BEAUCHAMP Address: [place], [place] Name: BRE MIRANDA Address: [address] [place] [address] Name: ALEYDA BEE Address: [address] [place] [address] Name: ALEYDA BEE Address: [address] [place] [address] Name: ROMIE PUENTES Address: home [address] [place] [id number]
--- OUTSIDE RECORDS SUMMARY | 2024-04-05 15:19 | XMS_ITS | Continuity of Care Document ---
Author Organization [facility] Address [address] [place] [address]- Care Team Providers Care Gate Operator Name Role Phone Mitch Lopez Primary Care Physician [facility] Date[facility]s): 11/08/21 - 12/08/21 [facility] [address] [place] [address]- Allergies, Adverse Reactions, Alerts Substance Reaction Severity [...] Refuses 1Result Comment: Received at [facility] on [facility] [address] 2Admin Note: VIS given 3Admin Note: Administered at [facility] on [address] in [place]. 4Location History: [facility] pharmacy 5Result Comment: [06/27/2014] PT HAD AT [facility] 6Admin Note: VIS GIVEN VIS DATE [...] EDT, Route to Pharmacy Electronically, [facility]/pharmacy #1972, Partial fill upon [...] 0 Refills, Maintenance, 12/07/21 15:30:00 EDT, Capsule, [facility]/pharmacy #1972, Partial fill upon [...] a day, # 120 tablet, 2 Refills, [facility] STORE 84243, 160, cm, 11/22/21 10:23:00 EDT, Height, 88.2, [...] 09/07/21 11:12:00 EST, Route to Pharmacy Electronically, [id number], [facility]/pharmacy #1972, 160.02, cm, 09/07/21 10:18:00 EST, Height,... Start Date: 09/07/21 Stop Date: 09/02/22 Status: Ordered Spiriva Respimat 1.25 mcg/inh inhalation aerosol 2 PUFFS INHALATION ONCE A DAY 30 DAYS Start Date: 05/05/21 Status: Ordered Spiriva Respimat 1.25 mcg/inh inhalation aerosol 2 puffs, Inhalation, Daily, # 1 each, 11 Refills, Maintenance, 09/07/21 11:12:00 EST, [facility]/pharmacy #1972, Partial fill upon [...] Soft Stop, 10/07/20 9:06:00 EST, [facility]/pharmacy #1972, Partial fill upon [...] 17:59:00 EST, Aerosol, Route to Pharmacy Electronically, [id number], [facility]/pharmacy #1972, 160... Start Date: 09/08/21 [...] # 30 capsule, 5 Refills, [facility], 160.02, cm, 07/05/21 10:30:00EST, Height, 85, kg, [...] Active *Joseph Resendez, Care Coord inator, ICP [phone](Confirmed) Active 1Jantoinette Streeter [facility] [place] [facility] [place] 2Case Oil Field Operator [place] ([facility]); Psychiatrist - Dr Konstantin Narvaez 3admitted at adult partial hospitalization program (adult intensive short term out-pt psychiatric program). 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 BRCA1/2 negative,seen by genetics 6follow up at [facility] GI - Dr Richey. Multiple endoscopies, all normal. Other diagnosis is Non-ulcer dyspepsia Social History Social History Type Response Smoking Status Never smoker entered on: 02/07/14 Sex Female
--- OUTSIDE RECORDS SUMMARY | 2024-04-05 15:19 | XMS_ITS | Continuity of Care Document ---
Author Organization [facility] Address [address] [place] [address]- Care Team Providers Care Power Supply Engineer Name Role Phone Mitch Lopez Primary Care Physician [facility] Date[facility]s): 09/02/22 - 10/12/[address] [address] Attending Physician: Dominick Cordova MD Admitting Physician: Dominick Cordova MD Referring Physician: Dominick Cordova MD Allergies, Adverse Reactions, Alerts Substance Reaction [...] Given Patient Refuses 1Admin Note: Administered at [facility] on [facility] in [place]. 2Location History: [facility] pharmacy 3Result Comment: [06/27/2014] PT HAD AT [facility] 4Admin Note: VIS GIVEN VIS DATE 01/30/2012 5Admin Note: flulaval vis given vis date 02/22/2011 6Admin Note: vis given 03/09/10 7Result Comment: Received at [facility] on [facility] 8Admin Note: VIS given 9Admin Note: [...] patch, 1 Refills, Maintenance, 07/07/22 18:54:00 EST, [facility] STORE 04473, 30, APPLY 1 PATCH TOPICALLY DAILY NEEDED FOR PAIN REMOVE AFTER 12 HOURS, 160, cm, 06/07/22 9:36:00... Start Date: 07/07/22 Status: Ordered montelukast 10 mg oral tablet 10 mg, 1, tablet, By Mouth, Daily at bedtime, TAKE 1 TABLET BY MOUTH EVERY DAY IN THE EVENING Start Date: 05/05/21 Status: Ordered oxyCODONE 5 mg oral capsule See Instructions, PRN as needed for pain, 1 capsule By Mouth Every 4-6 hours, 0 Refills, Maintenance, 09/16/22 6:43:00 EST, Capsule, Partial fill upon patient request if the prescription is for a schedule II opioid drug. Start Date: 09/16/22 Status: Ordered predniSONE 10 mg oral tablet 1 tablet, By Mouth, Daily, # 30 tablet, 0 Refills, Maintenance, 09/26/22 8:34:00 EST, [facility] STORE 62592, 161, cm, 09/19/22 9:35:00 EST, Height, 85, kg, 09/16/22 6:46:00 EST, Dry Weight Start Date: 09/26/22 Status: Ordered Premarin 0.3 mg oral tablet 1 tablet = 0.3 mg, By Mouth, Daily, # 30 tablet, 11 Refills, Maintenance, 07/12/22 14:20:00 EST, [facility]/pharmacy #1972, Partial fill upon patient request [...] 13:48:00 EST, Aerosol, Route to Pharmacy Electronically, [id number], [facility], 160... Start Date: 08/29/22 Status: Ordered traMADol 50 mg oral tablet 1 tablet = 50 mg, By Mouth, Every 4 hours, PRN as needed for pain, 0 Refills, Maintenance, 236:44:00 EST, Tablet, Partial fill upon patient request if the prescription is for a schedule II opioid drug. Start Date: 09/16/22 Status: Ordered Ventolin HFA 108 mcg/inh inhalation [...] Confirmed Active OCD Confirmed Active *Joseph Resendez, Tractor Driver, ICP [phone] Confirmed Active 1Jantoinette Streeter [facility] [place] [facility] [place] 2Case Boiler Mechanic [place] ([facility]); Psychiatrist - [...] BRCA1/2 negative,seen by genetics 6follow up at [facility] GI - Dr Richey. Multiple endoscopies, all normal. Other diagnosis is Non-ulcer dyspepsia Social History Social History Type Response Smoking Status Never smoker entered on: 02/07/14 Sex Female Patient Care team information Care Team Personnel Name: Mitch Lopez Position: S PCO Associate Professional Member Role: PCP Address: Address: [address] [place] [address] [place] [address]- Care Team Related Persons Name: GABINO CASTANEDA Address: [address] [place] [address] Name: BRE MIRANDA Address: [address] [place] [address] Name: ALEYDA BEE Address: [address] [place] [address] Name: ALEYDA BEE Address: [address] [place] [address] Name: ROMIE PUENTES Address: [address] [place] [address]
--- OUTSIDE RECORDS SUMMARY | 2024-04-05 15:19 | XMS_ITS | Continuity of Care Document ---
Author Organization [facility] (Former[facility])[3] Adult Medicine Address [address] [place] [address]- Care Team Providers Care Supervisor Shed Workers Name Role Phone Mitch Lopez Primary Care Physician [phone] [facility] 08/01/23 - 08/31/23 [facility]3] Adult Medicine [address] [place], [place] [address] Allergies, Adverse Reactions, Alerts Substance [...] influenza virus vaccine, inactivated 5 05/18/11 Gi mikaeal influenza virus vaccine, inactivated 6 07/08/10 Gi [...] 18 07/18/06 Given 1Admin Note: Administered at [facility] on [facility] in [place]. 2Location History: [facility] 3Result Comment: [06/27/2014] PT HAD AT [facility] 4Admin Note: VIS GIVEN VIS DATE 01/30/2012 5Admin Note: flulaval vis given vis date 02/22/2011 6Admin Note: vis given 03/09/10 7Result Comment: Received at [facility] on [facility] 8Admin Note: VIS given 9Admin Note: [...] opioid drug. Start Date: 09/14/22 Status: Ordered [facility] MELATONIN 3 MG TABLET [facility] MELATONIN 3 MG TABLET, 1, tablet, By Mouth, Daily at bedtime, # 30 tablet, 3 Refills, Maintenance, 03/31/23 18:55:00 EDT, 161, cm, 03/29/23 14:07:00 EDT, Height, 85, kg, 09/16/22 6:46:00 EST, DryWeight Start Date: 03/31/23 Status: Ordered diclofenac 1% topical gel 1 application, Topically, 4 times a day, PRN NEEDED, MODERATE PAIN., # 100 Gm, 3 Refills, Maintenance, 08/28/23 14:07:00 EST, [facility]/pharmacy #1972, 25, 1 application Topically 4 times a day,PRN: NEEDED,Instr:MODERATE PAIN., 161, cm, 08/16/23 11:00:... Start Date: 08/28/23 Status: Ordered hydrOXYzine hydrochloride 25 mg oral tablet 1 tablet, By Mouth, 2 times a day, PRN NEEDED FOR ANXIETY, # 60 tablet, 2 Refills, Maintenance, 06/09/23 19:43:00 EST, [facility], 161, cm, 05/27/23 9:13:00 EDT, Height, 85, kg, 09/16/22 6:46:00 EST, Dry Weight Start Date: 06/09/23 Status: Ordered lidocaine 5% topical film 1 patch, Topically, Daily, PRN NEEDED FOR PAIN REMOVE AFTER 12 HOURS, # 30 patch, 1 Refills, Maintenance, 07/28/23 17:33:00 EST, [facility] 77[facility], 30, APPLY 1 PATCH TOPICALLY DAILY NEEDED [...] tablet, 0 Refills, Maintenance, 03/31/23 18:55:00 EDT, [facility] STORE 90934, 161, cm, 03/29/23 14:07:00 EDT, Height, 85, [...] 10:54:00 EST, Aerosol, Route to Pharmacy Electronically, [id number], [facility], 161... Start Date: 07/05/23 Status: [...] Refills, Maintenance, 03/22/23 11:50:00 EDT, [facility], 161, cm, 03/20/23 17:26:00 EDT, Height, 85, [...] Confirmed Active OCD Confirmed Active *Joseph Resendez, Golf Club Facer, ICP [phone] Confirmed Active 1Jantoinette Streeter [facility] [place] [facility] [place] 2Case Porcelain Enameler [place] Proctor ([facility]); Psychiatrist - [...] negative,seen by genetics 6follow up at [facility] GI - Dr Richey. Multiple endoscopies, all normal. Other diagnosis is Non-ulcer dyspepsia Social History Social History Type Response Smoking Status Never smoker entered on: 02/07/14 Sex Female Patient Care team information Care Team Personnel Name: Mitch Lopez Position: S PCO Associate Professional Member Role: PCP Address: Address: [address] [place] [address] [place] [address]- Care Team Related Persons Name: GABINO CASTANEDA Address: home [address] [place] [address] Name: JERROD BEAUCHAMP Address: [place], [place] Name: BRE MIRANDA Address: home [address] [place] [address] Name: ALYEDA BEE Address: home [address] [place] [address] Name: ALEYDA BEE Address: home [address] [place] [address] Name: ROMIE PUENTES Address: home [address] [place] [address]
--- OUTSIDE RECORDS SUMMARY | 2024-04-05 15:19 | XMS_ITS | Continuity of Care Document ---
Author Organization [facility] Adult Medicine Address [address] [place] [address]- Care Team Providers Care Furniture Reproducer Name Role Phone Mitch Lopez Primary Care Physician [facility]): 05/02/23 - 06/01/23 [facility] Adult Medicine [address] [place] [address]- Encounter Diagnosis Chronic back pain(Discharge Diagnosis) - 06/22/19 Attending Physician: Admtr, Ar8 Allergies, Adverse Reactions, Alerts [...] 18 07/18/06 Given 1Admin Note: Administered at [facility] on [facility] in [place]. 2Location History: [facility] pharmacy 3Result Comment: [06/27/2014] PT HAD AT [facility] 4Admin Note: VIS GIVEN VIS DATE 01/30/2012 5Admin Note: flulaval vis given vis date 02/22/2011 6Admin Note: vis given 03/09/10 7Result Comment: Received at [facility] on [facility] 8Admin Note: VIS given 9Admin Note: 2nd [...] opioid drug. Start Date: 09/14/22 Status: Ordered [facility] MELATONIN 3 MG TABLET [facility] [...] tablet, 2 Refills, Maintenance, 03/31/23 18:55:00 EDT, [facility] STORE 75624, 161, cm, 03/29/23 14:07:00 EDT, Height, 85, [...] tablet, 0 Refills, Maintenance, 12/30/22 15:43:00 EDT, [facility]/pharmacy #1972, [...] tablet, 0 Refills, Maintenance, 03/31/23 18:55:00 EDT, [facility] STORE 04387, 161, cm, 03/29/23 14:07:00 EDT, Height, 85, [...] 19:11:00 EDT, Aerosol, Route to Pharmacy Electronically, [id number], [facility], 161... Start Date: 11/24/22 Status: [...] Refills, Maintenance, 03/22/23 11:50:00 EDT, [facility], 161, cm, 03/20/23 17:26:00 EDT, Height, 85, [...] Condition Confirmation Course Effective Dates Status Health atus Informant Asthma Confirmed 07/05/05 Active Bipolar disorder 1, 2, 3 Confirmed Active Chronic back pain Confirmed 07/05/05 Active Gastric nodule 4 Confirmed Active H/O ovarian cancer 5 Confirmed Active Hiatal hernia Confirmed Active Hysterectomy Confirmed Active Irritable bowel syndrome 6 Confirmed Active Kidney stone Confirmed Active Chronic migraine Confirmed Active OCD Confirmed Active *Joseph Resendez, Respiratory Care Faculty, ICP [phone] Confirmed Active 1Jantoinette Streeter [facility] Psychiatry [place] 2Case Ssds Mk 2 Advanced Operator Parish Proctor ([facility]); Psychiatrist [...] BRCA1/2 negative,seen by genetics 6follow up at [facility] GI - Dr Richey. Multiple endoscopies, [...] Associate Professional Member Role: PCP Address: Address: [address] [place] [address] [place] [address]- Care Team Related Persons Name: GABINO CASTANEDA Address: home [address] [place] [address] Name: JERROD BEAUCHAMP Address: home [place], [place] Name: BRE MIRANDA Address: [address] [place] [address] Name: ALEYDA BEE Address: home [address] [place] [address] Name: ALEYDA BEE Address: [address] [place] [address] Name: ROMIE PUENTES Address: home [address] [place] [address]
--- OUTSIDE RECORDS SUMMARY | 2024-04-05 15:19 | XMS_ITS | Continuity of Care Document ---
Author Organization [facility] Address [address] [facility], [address] Floor, [address] [place] [address]- Care Team Providers Care Gas Or Water Meter Installer Name Role Phone Mitch Lopez Primary Care Physician [facility]): 08/04/20 - 09/03/20 [facility] [address], 3[address] Floor, [address] [place] [address]- Attending Physician: Jana Mercado Admitting Physician: Jana Mercado Referring Physician: AdmtrJana Allergies, Adverse Reactions, Alerts Substance Reaction Severity Status aspirin wheezing Active Bactrim bruising Active Compazine unknown Active [...] Patient Refuses 1Result Comment: Received at [facility] on [address] 2Admin Note: VIS given 3Admin Note: Administered at [facility] on [facility] [address] in [place]. 4Location History: [facility] pharmacy 5Result Comment: [06/27/2014] PT HAD AT [facility] 6Admin Note: VIS GIVEN VIS DATE [...] Gm, 0 Refills, Maintenance, 08/08/20 15:21:00 EST, [place], [facility], Partial fill upon patient request [...] 05/19/20 16:20:00 EDT, Route to Pharmacy Electronically, [id number], [facility]/pharmacy#1972, 160.02, cm, 04/28/20 13:40:00 EDT, Height, 9... Start Date: 05/19/20 Stop Date: 11/15/20 Status: Ordered ProAir HFA 90 mcg/inh inhalation aerosol with adapter 2, puffs, Inhalation, Every 6 hours, PRN, # 1 each, Refills 5, Tot. Refills 5, Maintenance, 06/16/20 18:28:00 EST, Route to Pharmacy Electronically, [id number], [facility]/pharmacy#1972, 160.02, cm, 05/27/20 13:10:00 EDT, Height, 9... [...] 30 capsule, 11 Refills, Maintenance, [facility], 160.02, cm, 10/11/19 15:24:00 EDT, Height, 85.91, [...] *Joseph Resendez, [facility], [facility] [phone](Confirmed) Active Dyan Streeter [facility] Psychiatry [place] 2Case Jacquard Twine Polisher Operator Parish Proctor ([facility]); Psychiatrist - Dr Konstantin Narvaez [...]
--- OUTSIDE RECORDS SUMMARY | 2024-04-05 15:19 | XMS_ITS | Continuity of Care Document ---
Author Organization [facility] Address [address] [place] [address]- Care Team Providers Care Information Clerk Automobile Club Name Role Phone Mitch Lopez Primary Care Physician [facility]s): 01/13/23 - 02/12/23 [facility] [address] [place] [address]- Allergies, Adverse Reactions, Alerts Substance Reaction Severity [...] Patient Refuses 1Admin Note: Administered at [facility] on [facility] in [place]. 2Location History: [facility] pharmacy 3Result Comment: [06/27/2014] PT HAD AT [facility] 4Admin Note: VIS GIVEN VIS DATE 01/30/2012 5Admin Note: flulaval vis given vis date 02/22/2011 6Admin Note: vis given 03/09/10 7Result Comment: Received at [facility] on [facility] 8Admin Note: VIS given 9Admin Note: 2nd [...] Moderate, # 100 Gm, 3 Refills, Maintenance, 01/11/23 15:57:00 EDT, [place], [facility], Partial fill upon patient request if the prescription is for a schedule II opioid drug., 161, cm, 01/11/23... Start Date: 01/11/23 Status: Ordered hydrOXYzine hydrochloride 25 mg oral [...] patch, 1 Refills, Maintenance, 07/07/22 18:54:00 EST, [facility] STORE 12037, 30, APPLY 1 PATCH TOPICALLY DAILY NEEDED [...] 10/31/22 16:24:00 EDT, Route to Pharmacy Electronically, [facility]/pharmacy #1972, Partial fill upon patien... Start Date: [...] tablet, 11 Refills, Maintenance, 07/12/22 14:20:00 EST, [facility]/pharmacy #1972, Partial fill upon patient request if the prescription is for a schedule II opioid drug., 160, cm, 07/12/22 13:43:00 EST, Height, 88.2,... Start Date: 07/12/22 Status: Ordered Spiriva Respimat 1.25 mcg/inh inhalation aerosol 2 puffs, Inhalation, Daily, # 1 each, 11 Refills, Maintenance, 11/21/22 12:15:00 EDT, [facility]/pharmacy #1972, Partial fill upon patient request if the prescription is for a schedule II opioid drug., 161,cm, 10/31/22 14:08:00 EDT, Height, 85, kg, 09/16/22... Start Date: 11/21/22 Status: Ordered Symbicort 160mcg/4.5mcg Inhaler 2, puffs, Inhalation, 2 times a day, rinse mouth and throat after use, # 10.2 Gm, Refills 11, Tot. Refills 11, Maintenance, 11/24/22 19:11:00 EDT, Aerosol, Route to Pharmacy Electronically, [id number], [facility]/pharmacy #1972, 161... Start Date: 11/24/22 Status: Ordered [...] fewer, # 60 tablet, 0 Refills, Maintenance, 02/03/23 10:30:00 EDT, [facility], Partial fill upon patient request if the prescription is for a sched... Start Date: 02/03/23 Status: Ordered Ventolin HFA 108 mcg/inh inhalation [...] Confirmed Active OCD Confirmed Active *Joseph Resendez, Asp Web Developer, ICP [phone] Confirmed Active 1Jantoinette Streeter [facility] [place] [facility] [place] 2Case Theatre Director Parish Proctor ([facility]); Psychiatrist - Dr Konstantin Narvaez 3admitted at adult partial hospitalization program (adult intensive short term out-pt psychiatric program). 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 BRCA1/2 negative,seen by genetics 6follow up at [facility] GI - Dr Richey. Multiple endoscopies, all normal. Other diagnosis is Non-ulcer dyspepsia Social History Social History Type Response Smoking Status Never smoker entered on: 02/07/14 Sex Female Patient Care team information Care Team Personnel Name: Mitch Lopez Position: S PCO Associate Professional Member Role: PCP Address: Address: [address] [place] [address] [place] [address]- [place] Care Team Related Persons Name: GABINO CASTANEDA Address: home [address] [place] [address] Name: JERROD BEAUCHAMP Address: [place], [place] Name: BRE MIRANDA Address: [address] [place] [address] Name: ALEYDA BEE Address: [address] [place] [address] Name: ALEYDA BEE Address: home [address] [place] [address] Name: ROMIE PUENTES Address: home [address] [place] [address]
--- OUTSIDE RECORDS SUMMARY | 2024-04-05 15:19 | XMS_ITS | Continuity of Care Document ---
Author Organization [facility] Adult Medicine Address [address] [place] [address]- Care Team Providers Care Director Of Undergraduate Admissions Name Role Phone Mitch Lopez Primary Care Physician [facility]): 10/04/21 - 11/03/21 [facility] Adult [facility] [address] [place], [place] [address] Allergies, Adverse Reactions, Alerts Substance [...] Given Patient Refuses 1Result Comment: Received at [facility] on [facility] [address] 2Admin Note: VIS given 3Admin Note: Administered at [facility] on [facility] in [place]. 4Location History: [facility] pharmacy 5Result Comment: [06/27/2014] PT HAD AT [facility] 6Admin Note: VIS GIVEN [...] 10/14/21 18:29:00 EDT, Route to Pharmacy Electronically, [facility]/pharmacy #1972, Partial fill upon patient request if the prescription is for a sched... Start Date: 10/14/21 Stop Date: 10/19/21 Status: Ordered buPROPion 150 mg/24 hours (XL) oral tablet, extended release TAKE 1 TABLET BY MOUTH EVERY DAY Start Date: 05/05/21 Status: Ordered [facility] MELATONIN [...] 42.5 Gm, 2 Refills, Maintenance, 09/08/20 14:57:00EST, [facility]/pharmacy #1972, 160.02, cm, 07/29/20 16:36:00 EST, [...] A DAY, # 120 tablet, 2 Refills, [facility] STORE 98906, 160.02, cm, 07/05/21 10:30:00 EST, Height, 85, kg, 03/11/21 17:07:00 EDT, Dry Weight Start Date: 08/22/21 Status: Ordered meloxicam 7.5 mg oral tablet 1 tablet, By Mouth, Daily, FOR ARTHRITIS PAIN. TAKE WITH FOOD, # 30 tablet, 1 Refills, [facility] STORE 03891, 160.02, cm, 09/16/21 14:31:00 EST, Height, 85, [...] 09/07/21 11:12:00 EST, Route to Pharmacy Electronically, [id number], [facility]/pharmacy #1972, 160.02, cm, 09/07/21 10:18:00 EST, Height,... Start Date: 09/07/21 Stop Date: 09/02/22 Status: Ordered Spiriva Respimat 1.25 mcg/inh inhalation aerosol 2 PUFFS INHALATION ONCE A DAY 30 DAYS Start Date: 05/05/21 Status: Ordered Spiriva Respimat 1.25 mcg/inh inhalation aerosol 2 puffs, Inhalation, Daily, # 1 each, 11 Refills, Maintenance, 09/07/21 11:12:00 EST, [facility]/pharmacy #1972, Partial fill upon patient request [...] 1 Refills, Soft Stop, 10/07/20 9:06:00 EST, [facility]/pharmacy #1972, Partial fill upon patient request [...] 17:59:00 EST, Aerosol, Route to Pharmacy Electronically, [id number], [facility]/pharmacy #1972, 160... Start Date: 09/08/21 Status: [...] # 30 capsule, 5 Refills, [facility], 160.02, cm, 07/05/21 10:30:00EST, Height, 85, kg, [...] Active OCD(Confirmed) Active *Joseph Resendez, [facility] [phone](Confirmed) Active Dyan Streeter [facility] Psychiatry [place] 2Case Splicing Machine Operator Automatic Parish Proctor ([facility]); Psychiatrist - Dr Konstantin Narvaez [...]
--- OUTSIDE RECORDS SUMMARY | 2024-04-05 15:19 | XMS_ITS | Continuity of Care Document ---
Author Organization [facility] Adult Medicine Address [address] [place] [address]- Care Team Providers Care Corn Grinder Name Role Phone Mitch Lopez Primary Care Physician [phone] [facility]counter [facility]s): 12/29/21 - 01/28/22 [facility] Adult Medicine [address] [place] [address]- Allergies, Adverse Reactions, Alerts Substance Reaction Severity [...] Administered at [facility] on [facility] in [place]. 2Location History: [facility] 3Result Comment: [06/27/2014] PT HAD AT [facility] 4Admin Note: VIS GIVEN VIS DATE 01/30/2012 5Admin Note: flulaval vis given vis date 02/22/2011 6Admin Note: vis given 03/09/10 7Result Comment: Received at [facility] on [facility] 8Admin Note: VIS given 9Admin [...] a day, # 120 tablet, 2 Refills, [facility] STORE 00557, 160, cm, 11/22/21 10:23:00 EDT, Height, 88.2, [...] tablet = 15 mg, By Mouth, Daily, PRN Pain , Moderate, # 30 tablet, 0 Refills, Maintenance, 01/20/22 15:40:00 EDT, Tablet, [facility], Partial fill upon patient request if the prescription is for a schedule II opioid drug., 160, cm, 01/20/22... Start Date: 01/20/22 Status: Ordered montelukast 10 mg oral tablet TAKE 1 TABLET BY MOUTH EVERY DAY IN THE EVENING Start Date: 05/05/21 Status: Ordered ProAir HFA 90 mcg/inh inhalation aerosol with adapter 2, puffs, Inhalation, Every 6 hours, PRN, # 1 each, Refills 11, Tot. Refills 11, Maintenance, 01/03/22 11:58:00 EDT, Route to Pharmacy Electronically, [id number], [facility]/pharmacy #1972, 160, cm, 01/03/22 11:03:00 EDT, [...] 11:56:00 EDT, Aerosol, Route to Pharmacy Electronically, [id number], [facility], 160... Start Date: 01/03/22 Status: Ordered terazosin 2 mg oral capsule 2 mg, 1, capsule, By Mouth, Daily at bedtime, continue taking till stone expulsion or till 4 weeks and then discontinue., # 30 capsule, Refills 0, Tot. Refills 0, Maintenance, 01/20/22 15:34:00 EDT, Route to Pharmacy Electronically, [facility]/pharmacy #1972... Start Date: 01/20/22 Status: Ordered Tessalon [...] # 30 capsule, 5 Refills, [facility], 160.02, cm, 07/05/21 10:30:00EST, Height, 85, kg, [...] I(Confirmed) Active OCD(Confirmed) Active *Joseph Resendez, Care [facility], [facility] [phone](Confirmed) Active Dyan Streeter [facility] [place] Psychiatry [place] 2Case Framing Mechanic Parish Proctor ([facility]); Psychiatrist [...] BRCA1/2 negative,seen by genetics 6follow up at [facility] GI - Dr Richey. Multiple endoscopies, all normal. Other diagnosis is Non-ulcer dyspepsia Social History Social History Type Response Smoking Status Never smoker entered on: 02/07/14 Sex Female
--- OUTSIDE RECORDS SUMMARY | 2024-04-05 15:19 | XMS_ITS | Continuity of Care Document ---
Author Organization [facility] Address [address] [place] [address]- Care Team Providers Care Production Controller Name Role Phone Mitch Lopez Primary Care Physician Encounter [facility] Date(s): 08/08/19 - 08/18/19 [facility] [address] [address]- [facility] Attending Physician: Jana Mercado Admitting Physician: AdmJana [...] at [facility] on [address] in [place]. 2Location History: [facility] pharmacy 3Result Comment: [06/27/2014] PT [...] 10 mg oral tablet See Instructions, PRN, 1 tablet By Mouth Every 8 hours as needed for muscle spasm., # 21 tablet, Refills 0, Tot. Refills 0, Maintenance, Other, 08/09/19 8:52:00 EST, Instructions Replace Required Details, Route to Pharmacy Electronically, [facility]... Start Date: 08/09/19 Status: Ordered oxyCODONE 5 mg oral tablet See Instructions, PRN, 1 tablet By Mouth Every 6 hours as needed for pain., # 28 tablet, Refills 0,Tot. Refills 0, Maintenance, Pain , Mild, 08/09/19 8:53:00 EST, Instructions Replace Required Details, Route to Pharmacy Electronically, [facility] Pharm... Start Date: 08/09/19 Status: Ordered POISE PADS POISE PADS, See Instructions, # 180 each, Refills 5, Tot. Refills 5, Maintenance, For stress incontinence (N93.3), Cystoscopy (Z98.890)., 02/27/19 14:16:26 EDT, Compound Start Date: 02/27/19 Status: Ordered ProAir HFA 90 mcg/inh inhalation aerosol with adapter 2, puffs, Inhalation, Every 6 hours, PRN, # 1 each, Refills 5, Tot. Refills 5, Maintenance, 07/25/19 14:29:00 EST, Route to Pharmacy Electronically, [id number], [facility]/pharmacy#1972, 158, cm, 07/25/19 13:55:00 EST, Height, [...] Chronic migraine(Confirmed) Active OCD(Confirmed) Active 1Jantoinette Streeter [facility] 2Case Director Retirement Parish Proctor ([facility]); Psychiatrist [...] BRCA1/2 negative,seen by genetics 6follow up at [facility] GI - Dr Richey. Multiple endoscopies, all normal. Other diagnosis is Non-ulcer dyspepsia Social History Social History Type Response Smoking Status Never smoker entered on: 02/07/14 Sex Female
--- OUTSIDE RECORDS SUMMARY | 2024-04-05 15:19 | XMS_ITS | Continuity of Care Document ---
Author Organization [facility] ter Address [address] [place] [address]- Care Team Providers Care Manager Ob Name Role Phone Mitch Lopez Primary Care Physician Encounter [facility] Date(s): 01/15/20 - 01/15/[address] [address]- [facility] Discharge Disposition: A-D/C Home Attending Physician: Tevin Carroll MD Admitting Physician: Tevin Carroll MD Referring Physician: Not on Staff, Referring [...] Note: Administered at [facility] on [address] in [place]. 2Location History: [facility] pharmacy 3Result Comment: [06/27/2014] PT HAD AT [facility] 4Admin Note: VIS GIVEN VIS DATE [...] 07/25/19 14:29:00 EST, Route to Pharmacy Electronically, [id number], [facility]/pharmacy#1972, 158, cm, 07/25/19 13:55:00 EST, Height, 91.3... [...] DAYS, # 30 capsule, 11 Refills, Maintenance, [facility] STORE 28513, 160.02, cm, 10/11/19 15:24:00 EDT, Height, 85.91, [...] Active *Joseph Resendez, Care Coord inator, ICP [phone](Confirmed) Active 1Jantoinette Streeter [facility] Psychiat[facility] [place] 2Case Biometrics Analyst Parish Proctor ([facility]); Psychiatrist - Dr Konstantin Narvaez [...] negative,seen by genetics 6follow up at [facility] GI - Dr Richey. Multiple endoscopies, all normal. Other diagnosis is Non-ulcer dyspepsia Results Radiology Reports * Exam Date Time Procedure Performing Provider Status 01/15/20 10:08 AM Chest 2 Views Frontal and Lat Jewell is , Cece; Auth (Verified) Notes: (Chest 2 Views Frontal and Lat) Reason For Exam: chest pain;Other: RESULT: Chest 2 Views Frontal and Lat Chest 2 Views Frontal and Lat INDICATION: Left chest pain associated with dizziness and nausea. COMPARISON: Multiple priors most recent 12/19/2019. FINDINGS: LINES AND TUBES: None. LUNGS AND PLEURA: Right lower lobe linear scarring. No superimposed focal airspace opacity. No pleural effusion. No pneumothorax. HEART, MEDIASTINUM AND LUCIO: Heart is normal in size. Normal mediastinal and hilar contour. BONES AND SOFT TISSUES: No acute abnormality. IMPRESSION: No evidence of acute abnormality. I have personally reviewed the images and I agree with this report. WSN: [id number] Ordering Physician: Tevin Carroll Dictated By: Radha Hutson MD Dictated Date/Time: 01/15/20 10:20 a Reviewed By: Jim Farmer MD Signed By: Jim Farmer MD Signed Date/Time: 01/15/20 10:25 am Transcribed By: LUNA Transcribed Date/Time: 01/15/20 10:15 am Vital Signs Most recent to oldest [Reference Range]: 1 2 3 Oxygen Saturation [94-100 %] 99 % (01/15/20 2:30 PM) 98 % (01/15/20 12:30 PM) 99 % (01/15/20 9:16 AM) Pulse Rate [55-90 bpm] 71 bpm (01/15/20 2:30 PM) 80 bpm (01/15/20 12:30 PM) 78 bpm (01/15/20 9:16 AM) Blood Pressure [90-138/55-84 mm Hg] 120/78mm Hg (01/15/20 2:30 PM) 114/77mm Hg (01/15/20 12:30 PM) 99/57mm Hg (01/15/20 9:16 AM) Respiratory Rate [16-30 br/min] 16 br/min (01/15/20 2:30 PM) 16 br/min (01/15/20 12:30 PM) 16 br/min (01/15/20 9:16 AM) Temperature [96.8-100.4 DegF] 98.5 DegF (01/15/20 9:16 AM) Mode of Delivery (Oxygen) Room air (01/15/20 2:30 PM) Room air (01/15/20 12:30 PM) Room air (01/15/20 9:16 AM) Blood pressure sites Arm, right (01/15/20 2:30 PM) Arm, left (01/15/20 12:30 PM) Arm, left (01/15/20 9:16 AM) Temperature Route Oral (01/15/20 9:16 AM) Social History Social History Type Response Smoking Status Never smoker entered on: 02/07/14 Sex Female
--- OUTSIDE RECORDS SUMMARY | 2024-04-05 15:19 | XMS_ITS | Continuity of Care Document ---
Author Organization [facility] Address [address] [place] [address]- Care Team Providers Care Secondary Social Studies Teacher Name Role Phone Mitch Lopez Primary Care Physician [phone] [facility] Date[facility] 08/29/22 - 09/28/22 [facility] [address] [place] [address]- Allergies, Adverse Reactions, Alerts Substance Reaction Severity [...] Given Patient Refuses 1Admin Note: Administered at [facility] on [address] in [place]. 2Location History: [facility] pharmacy 3Result Comment: [06/27/2014] PT HAD AT [facility] 4Admin Note: VIS GIVEN VIS DATE 01/30/2012 5Admin Note: flulaval vis given vis date 02/22/2011 6Admin Note: vis given 03/09/10 7Result Comment: Received at [facility] on [facility] 8Admin Note: VIS [...] patch, 1 Refills, Maintenance, 07/07/22 18:54:00 EST, [facility] 97559, 30, APPLY 1 PATCH TOPICALLY DAILY NEEDED [...] tablet, 0 Refills, Maintenance, 09/26/22 8:34:00 EST, [facility], 161, cm, 09/19/22 9:35:00 EST, Height, 85, [...] 13:48:00 EST, Aerosol, Route to Pharmacy Electronically, [id number], [facility]/pharmacy #1972, 160... Start Date: 08/29/22 Status: Ordered [...] 5 Refills, Maintenance, 06/15/22 10:39:00 EST, Aerosol, [facility]/pharmacy #1972, Partial fill upon patient request if the prescription is for a schedule II opioid... Start Date: 06/15/22 Status: Ordered verapamil 180 mg oral capsule, extended release 1 capsule, By Mouth, Daily, # 30 capsule, 5 Refills, Maintenance, 06/16/22 9:46:00 EST, [facility], 160, cm, 06/07/22 9:36:00 EST, Height, 88.2, [...] Confirmed Active OCD Confirmed Active *Joseph Resendez, Occupational Therapy Aide, ICP [phone] Confirmed Active 1Jantoinette Streeter [facility] Psychiatry [place] 2Case Apiculture Teacher Parish Esthela ([facility]); Psychiatrist - Dr Konstantin Narvaez [...] Care Team Personnel Name: Mitch Lopez Position: [facility] PCO Associate Professional Member Role: PCP Address: Address: [address] [place] [address] [place] [address]- [place] Care Team Related Persons Name: GABINO CASTANEDA Address: home [address] [place] [address] Name: BRE MIRANDA Address: home [address] [place] [address] Name: ALEYDA BEE Address: home [address] [place], [place] Name: ALEYDA BEE Address: home [address] [place] [address] Name: ROMIE PUENTES Address: home [address] [place] [address]
--- OUTSIDE RECORDS SUMMARY | 2024-04-05 15:20 | XMS_ITS | Continuity of Care Document ---
Author Organization [facility] Address [address] [place] [address]- Care Team Providers Care Seed Tester Name Role Phone Mitch Lopez Primary Care Physician [facility] Date(s): 03/24/22 - 04/23/[address] [address] Attending Physician: Jana Mercado Admitting Physician: AdmtrJana [...] Refuses 1Admin Note: Administered at [facility] on [facility] in [place]. 2Location History: [facility] pharmacy 3Result Comment: [06/27/2014] PT HAD AT [facility] 4Admin Note: VIS GIVEN VIS DATE 01/30/2012 5Admin Note: flulaval vis given vis date 02/22/2011 6Admin Note: vis given 03/09/10 7Result Comment: Received at [facility] on [facility] 8Admin Note: VIS given 9Admin Note: [...] tablet, 0 Refills, Maintenance, 04/15/22 16:54:00 EDT, [facility]/pharmacy #1972, Partial fill upon patient request if [...] tablet, 0 Refills, Maintenance, 04/15/22 16:53:00 EDT, [facility]/pharmacy #1972, Partial fill upon patient request if [...] 01/03/22 11:58:00 EDT, Route to Pharmacy Electronically, [id number], [facility], 160, cm, 01/03/22 11:03:00 EDT, [...] each, 11 Refills, Maintenance, 01/03/22 11:57:00 EDT, [facility]/pharmacy #1972, Partial fill upon patient request if the prescription is for a schedule II opioid drug., 160,cm, 01/03/22 11:03:00 EDT, Height, 88.2, kg, 11/11/... Start Date: 01/03/22 Status: Ordered SUMAtriptan 50 mg oral tablet 1 tablet = 50 mg, By Mouth, Once, PRN Headache, may repeat dose once in 2 hours, # 18 tablet, 1 Refills, Soft Stop, 10/07/20 9:06:00 EST, [facility]/pharmacy #1972, Partial fill upon patient request if the prescription is for a schedule II opioid drug., 160.... Start Date: 10/07/20 Status: Ordered Symbicort 160mcg/4.5mcg Inhaler 2, puffs, Inhalation, 2 times a day, rinse mouth and throat after use, # 10.2 Gm, Refills 11, Tot. Refills 11, Maintenance, 01/03/22 11:56:00 EDT, Aerosol, Route to Pharmacy Electronically, [id number], [facility]/pharmacy #1972, 160... Start Date: 01/03/22 Status: Ordered terazosin 2 mg oral capsule 1, capsule, By Mouth, Daily at bedtime, INSTR:CONTINUE TAKING TILL STONE EXPULSION OR TILL 4 WEEKS AND THEN DISCONTINUE., # 30 capsule, Refills 0, Maintenance, 03/28/22 14:40:00 EDT, Route to Pharmacy Electronically, [facility] STORE 81441, 160, cm, 03/15/22... Start Date: 03/28/22 Status: [...] Mouth, Daily, # 30 capsule, 5 Refills, [facility] STORE 30901, 160.02, cm, 07/05/21 10:30:00EST, Height, 85, kg, [...] Active *Joseph Resendez, Care Coord inator, ICP [phone](Confirmed) Active 1Jantoinette Streeter [facility] Psychiatry [place] 2Case Electrician Supervisor Airplane Parish Proctor ([facility]); Psychiatrist - Dr Konstantin Narvaez [...] negative,seen by genetics 6follow up at [facility] GI - Dr Richey. Multiple endoscopies, all normal. Other diagnosis is Non-ulcer dyspepsia Social History Social History Type Response Smoking Status Never smoker entered on: 02/07/14 Sex Female Care Team Personnel Name: Mitch Lopez Address: [address] [place] [address] [place] [address]-
--- OUTSIDE RECORDS SUMMARY | 2024-04-05 15:20 | XMS_ITS | Continuity of Care Document ---
Author Organization [facility] Adult [facility] Address [address] [place] [address]- Care Team Providers Care Senior Editor Name Role Phone Mitch Lopez Primary Care Physician [phone] [facility]): 12/02/19 - 12/09/19 [facility] [address] [place] [address]- [facility] Attending Physician: Mitch Lopez Allergies, Adverse Reactions, [...] Refuses 1Admin Note: Administered at [facility] on [address] in [place]. 2Location History: [facility] pharmacy [...] 12/15/19 7:22:00 EDT, 12/01/19 7:22:00 EDT, Capsule, [facility]/pharmacy #1972, 1 capsule By Mouth Every [...] 07/25/19 14:29:00 EST, Route to Pharmacy Electronically, [id number], [facility]/pharmacy#1972, 158, cm, 07/25/19 13:55:00 EST, Height, [...] 30 capsule, 11 Refills, Maintenance, [facility], 160.02, cm, 10/11/19 15:24:00 EDT, Height, 85.91, [...] Chronic migraine(Confirmed) Active OCD(Confirmed) Active Dyan Streeter [facility] Psychiatry [place] 2Case Mechanical Engineering Officer Parish Proctor ([facility]); Psychiatrist [...] BRCA1/2 negative,seen by genetics 6follow up at [facility] GI - Dr Richey. Multiple endoscopies, all normal. Other diagnosis is Non-ulcer dyspepsia Social History Social History Type Response Smoking Status Never smoker entered on: 02/07/14 Sex Female
--- OUTSIDE RECORDS SUMMARY | 2024-04-05 15:20 | XMS_ITS | Continuity of Care Document ---
Author Organization [facility] Address [address] [place] [address]- Care Team Providers Care Environmental Protection Specialist Name Role Phone Mitch Lopez Primary Care Physician [phone] Encounter [facility] Date(s): 10/03/19 - 10/13/[address] [address]- [facility] Attending Physician: Jana Mercado Admitting [...] Given Patient Refuses 1Admin Note: Administered at [facility] on [address] in [place]. 2Location History: [facility] pharmacy 3Result Comment: [06/27/2014] PT HAD AT [facility] 4Admin Note: VIS GIVEN VIS DATE 01/30/2012 [...] 07/25/19 14:29:00 EST, Route to Pharmacy Electronically, [id number], [facility]/pharmacy#1972, 158, cm, 07/25/19 13:55:00 EST, Height, 91.3... [...] Chronic migraine(Confirmed) Active OCD(Confirmed) Active 1Jantoinette Streeter [facility] 2Case Laboratory Cureman Parish Proctor ([facility]); Psychiatrist - Dr Konstantin Narvaez 3admitted [...]
--- OUTSIDE RECORDS SUMMARY | 2024-04-05 15:20 | XMS_ITS | Continuity of Care Document ---
Author Organization [facility] Adult Medicine Address [address] [place] [address]- Care Team Providers Care Workday Financials Consultant Name Role Phone Mitch Lopez Primary Care Physician [phone] [facility] Date[facility]s): 05/17/22 - 07/07/22 [facility] Adult Medicine [address] [place] [address]- Attending Physician: Mitch Lopez Admitting Physician: Mitch [...] Administered at [facility] on [facility] in [place]. 2Location History: [facility] pharmacy 3Result Comment: [06/27/2014] PT HAD AT [facility] 4Admin Note: VIS GIVEN VIS DATE 01/30/2012 5Admin Note: flulaval vis given vis date 02/22/2011 6Admin Note: vis given 03/09/10 7Result Comment: Received at [facility] on [facility] 8Admin Note: VIS given 9Admin Note: 2nd [...] tablet, 0 Refills, Maintenance, 04/15/22 16:54:00 EDT, [facility]/pharmacy #1972, Partial fill [...] Refills, Maintenance, 07/07/22 18:54:00 EST, [facility], 30, APPLY 1 PATCH TOPICALLY DAILY NEEDED [...] tablet, 0 Refills, Maintenance, 06/19/22 12:17:00 EST, [facility] STORE 88486, 160, cm, 06/07/22 9:36:00 EST, Height, 88.2, [...] Refills, Soft Stop, 06/07/22 10:25:00 EST, Powder, [facility]/pharmacy #1972, Partial fill upon patient request if the prescription is for a schedule II opioid drug., 0.5 mL Intramuscul... Start Date: 06/07/22 Status: Ordered Shingrix intramuscular injection = 0.5 mL, Intramuscular, Once, repeat dose in 2 to 6 months, # 2 each, 0 Refills, Soft Stop, 03/15/22 14:32:00 EDT, Powder, [facility]/pharmacy #1972, Partial fill upon patient request if the prescription is for a schedule II opioid drug., 0.5 mL Intramuscul... Start Date: 03/15/22 Status: Ordered Spiriva Respimat 1.25 mcg/inh inhalation aerosol 2 puffs, Inhalation, Daily, # 1 each, 11 Refills, Maintenance, 06/07/22 10:22:00 EST, [facility]/pharmacy #1972, Partial fill [...] 1 Refills, Soft Stop, 10/07/20 9:06:00 EST, [facility]/pharmacy #1972, Partial fill upon patient request if the prescription is for a schedule II opioid drug., 160.... Start Date: 10/07/20 Status: Ordered Symbicort 160mcg/4.5mcg Inhaler 2, puffs, Inhalation, 2 times a day, rinse mouth and throat after use, # 10.2 Gm, Refills 11, Tot. Refills 11, Maintenance, 06/07/22 10:22:00 EST, Aerosol, Route to Pharmacy Electronically, [id number], [facility]/pharmacy #1972, 160... Start Date: 06/07/22 Status: Ordered terazosin 2 mg oral capsule 1, capsule, By Mouth, Daily at bedtime, INSTR:CONTINUE TAKING TILL STONE EXPULSION OR TILL 4 WEEKS AND THEN DISCONTINUE., # 30 capsule, Refills 0, Maintenance, 03/28/22 14:40:00 EDT, Route to Pharmacy Electronically, [facility] STORE 88549, 160, cm, 03/15/22... Start Date: 03/28/22 Status: Ordered Tessalon Perles 100 mg oral capsule 1 capsule = 100 mg, By Mouth, 3 times a day, PRN Cough, # 21 capsule, 0 Refills, Maintenance, 06/17/22 17:34:00 EST, [facility]/pharmacy #1972, Partial fill [...] Refills, Maintenance, 06/16/22 9:46:00 EST, [facility], 160, cm, 06/07/22 9:36:00 EST, Height, 88.2, [...] Confirmed Active OCD Confirmed Active *Joseph Resendez, Superintendent Colliery, ICP [phone] Confirmed Active 1Jantoinette Streeter [facility] Psychiatry [place] 2Case Nurse Private Duty Parish Proctor ([facility] [...] negative,seen by genetics 6follow up at [facility] GI - Dr Richey. Multiple endoscopies, all normal. Other diagnosis is Non-ulcer dyspepsia Social History Social History Type Response Smoking Status Never smoker entered on: 02/07/14 Sex Female Patient Care team information Care Team Personnel Name: Mitch Lopez Position: [facility] PCO Associate Professional Member Role: PCP Address: Address: [address] [place] [address] [place] [address]- [place] Care Team Related Persons Name: GABINO CASTANEDA Address: home [address] [place] [address] Name: BRE MIRANDA Address: [address] [place] [address] Name: ALEYDA BEE Address: [address] [place] [address] Name: ALEYDA BEE Address: home [address] [place] [address] Name: ROMIE PUENTES Address: home [address] [place] [address]
--- OUTSIDE RECORDS SUMMARY | 2024-04-05 15:20 | XMS_ITS | Continuity of Care Document ---
Author Organization [facility] Address [address] [place] [address]- Care Team Providers Care Rn Clinical Research Name Role Phone Mitch Lopez Primary Care Physician [phone] [facility] 05/22/23 - 06/21/23 [facility] [address] [place], [place] [address] Allergies, Adverse Reactions, Alerts [...] 07/18/06 Given 1Admin Note: Administered at [facility] on [facility] in [place]. 2Location History: [facility] pharmacy 3Result Comment: [06/27/2014] PT HAD AT [facility] 4Admin Note: VIS GIVEN VIS DATE 01/30/2012 5Admin Note: flulaval vis given vis date 02/22/2011 6Admin Note: vis given 03/09/10 7Result Comment: Received at [facility] on [facility] 8Admin Note: VIS given 9Admin Note: [...] drug. Start Date: 09/14/22 Status: Ordered [facility] MELATONIN 3 MG TABLET [facility] MELATONIN 3 MG TABLET, 1, [...] tablet, 2 Refills, Maintenance, 06/09/23 19:43:00 EST, [facility] STORE 54593, 161, cm, 05/27/23 9:13:00 EDT, Height, 85, [...] 0 Refills, Maintenance, 03/31/23 18:55:00 EDT, [facility] STORE 18847, 161, cm, 03/29/23 14:07:00 EDT, Height, 85, [...] 19:11:00 EDT, Aerosol, Route to Pharmacy Electronically, [id number], [facility], 161... Start Date: 11/24/22 Status: [...] Refills, Maintenance, 03/22/23 11:50:00 EDT, [facility], 161, cm, 03/20/23 17:26:00 EDT, Height, 85, [...] Confirmed Active OCD Confirmed Active *Joseph Resendez, Class B Driver, ICP [phone] Confirmed Active 1Jantoinette Streeter [facility] 2Case Desk Pens Assembler Parish Proctor ([facility]); Psychiatrist [...] BRCA1/2 negative,seen by genetics 6follow up at [facility] GI - Dr Richey. Multiple endoscopies, all normal. Other diagnosis is Non-ulcer dyspepsia Social History Social History Type Response Smoking Status Never smoker entered on: 02/07/14 Sex Female Patient Care team information Care Team Personnel Name: Mitch Lopez Position: S PCO Associate Professional Member Role: PCP Address: Address: [address] [place] [address] [place] [address]- Care Team Related Persons Name: GABINO CASTANEDA Address: home [address] [place] [address] Name: JERROD BEAUCHAMP Address: [place], [place] Name: BRE MIRANDA Address: [address] [place] [address] Name: ALEYDA BEE Address: [address] [place], [place] Name: ALEYDA BEE Address: [address] [place], [place] Name: ROMIE PUENTES Address: home [address] [place] [address]
--- OUTSIDE RECORDS SUMMARY | 2024-04-05 15:20 | XMS_ITS | Continuity of Care Document ---
Author Organization [facility] Adult Medicine Address [address] [place] [address]- Care Team Providers Care Student Union Consultant Name Role Phone Mitch Lopez Primary Care Physician [facility] 08/08[facility]23 - 09/07/23 [facility] Adult Medicine [address] [place], [place] [address] Allergies, Adverse Reactions, Alerts [...] 18 07/18/06 Given 1Admin Note: Administered at [facility] on [facility] in [place]. 2Location History: [facility] pharmacy 3Result Comment: [06/27/2014] PT HAD AT [facility] 4Admin Note: VIS GIVEN VIS DATE 01/30/2012 5Admin Note: flulaval vis given vis date 02/22/2011 6Admin Note: vis given 03/09/10 7Result Comment: Received at [facility] on [facility] 8Admin Note: VIS given 9Admin Note: 2nd [...] opioid drug. Start Date: 09/14/22 Status: Ordered [facility] MELATONIN 3 MG TABLET [facility] MELATONIN 3 MG TABLET, [...] Gm, 3 Refills, Maintenance, 08/28/23 14:07:00 EST, [facility]/pharmacy #1972, 25, 1 application Topically 4 times a day,PRN: NEEDED,Instr:MODERATE PAIN., 161, cm, 08/16/23 11:00:... Start Date: 08/28/23 Status: Ordered hydrOXYzine hydrochloride 25 mg oral tablet 1 tablet, By Mouth, 2 times a day, PRN NEEDED FOR ANXIETY, # 60 tablet, 2 Refills, Maintenance, 06/09/23 19:43:00 EST, [facility], 161, cm, 05/27/23 9:13:00 EDT, Height, 85, kg, 09/16/22 6:46:00 EST, Dry Weight Start Date: 06/09/23 Status: Ordered lidocaine 5% topical film 1 patch, Topically, Daily, PRN NEEDED FOR PAIN REMOVE AFTER 12 HOURS, # 30 patch, 1 Refills, Maintenance, 07/28/23 17:33:00 EST, [facility] 87160, 30, APPLY 1 PATCH TOPICALLY DAILY NEEDED [...] tablet, 0 Refills, Maintenance, 03/31/23 18:55:00 EDT, [facility] STORE 58421, 161, cm, 03/29/23 14:07:00 EDT, Height, 85, [...] 10:54:00 EST, Aerosol, Route to Pharmacy Electronically, [id number], [facility], 161... Start Date: 07/05/23 Status: [...] Refills, Maintenance, 03/22/23 11:50:00 EDT, [facility], 161, cm, 03/20/23 17:26:00 EDT, Height, 85, [...] Confirmed Active OCD Confirmed Active *Joseph Resendez, Vice President Of Academic Affairs, ICP [phone] Confirmed Active 1Jantoinette Streeter [facility] Psychiat[facility] [place] 2Case Sales Account Leader Parish Proctor ([facility]); Psychiatrist - Dr [...] Professional Member Role: PCP Address: Address: [address] [place] [address] [place] [address]- Care Team Related Persons Name: GABINO CASTANEDA Address: home [address] [place] [address] Name: JERROD BEAUCHAMP Address: [place], [place] Name: BRE MIRANDA Address: [address] [place] [address] Name: ALEYDA BEE Address: home [address] [place] [address] Name: ALEYDA BEE Address: [address] [place] [address] Name: ROMIE PUENTES Address: home [address] [place] [address]
--- OUTSIDE RECORDS SUMMARY | 2024-04-05 15:20 | XMS_ITS | Continuity of Care Document ---
Author Organization [facility] Address [address] [place] [address]- Care Team Providers Care Stripping Machine Operator Name Role Phone Mitch Lopez Primary Care Physician [phone] Encounter [facility] [place](s): 07/19/23 - 07/26/23 [facility] [address] [place] [address]- Encounter Diagnosis Urine malodor(Discharge Diagnosis) - 07/19/23 Attending Physician: Prachi Olivas MD Referring Physician: [...] 18 07/18/06 Given 1Admin Note: Administered at [facility] on [facility] in [place]. 2Location History: [facility] 3Result Comment: [06/27/2014] PT HAD AT [facility] 4Admin Note: VIS GIVEN VIS DATE 01/30/2012 5Admin Note: flulaval vis given vis date 02/22/2011 6Admin Note: vis given 03/09/10 7Result Comment: Received at [facility] on [facility] 8Admin Note: [...] Refills, Maintenance, 07/06/23 14:28:00 EST, [facility], 25, USE 1 APPLICATION TOPICALLY 4 TIMES A DAY NEEDED MODERATE PAIN, 161, cm, 07/05/23 10:50:00 EST, He... Start Date: 07/06/23 Status: Ordered hydrOXYzine hydrochloride 25 mg oral tablet 1 tablet, By Mouth, 2 times a day, PRN NEEDED FOR ANXIETY, # 60 tablet, 2 Refills, Maintenance, 06/09/23 19:43:00 EST, [facility], 161, cm, 05/27/23 9:13:00 EDT, Height, 85, kg, 09/16/22 6:46:00 EST, Dry Weight Start Date: 06/09/23 Status: Ordered lidocaine 5% topical film 1 patch, Topically, Daily, PRN NEEDED FOR PAIN REMOVE AFTER 12 HOURS, # 30 patch, 1 Refills, Maintenance, 03/29/23 15:10:00 EDT, [facility]/pharmacy #1972, 30, 1 patch Topically Daily,PRN: NEEDED [...] tablet, 0 Refills, Maintenance, 12/30/22 15:43:00 EDT, [facility]/pharmacy #1972, Partial fill upon patient request [...] 10/31/22 16:24:00 EDT, Route to Pharmacy Electronically, [facility]/pharmacy #1972, Partial fill upon patien... Start Date: 10/31/22 Status: Ordered nabumetone 500 mg oral tablet 1 tablet, By Mouth, 2 times a day, TAKE WITH FOOD., # 60 tablet, 0 Refills, Maintenance, 03/31/23 18:55:00 EDT, [facility], 161, cm, 03/29/23 14:07:00 EDT, Height, 85, [...] 10:54:00 EST, Aerosol, Route to Pharmacy Electronically, [id number], [facility], 161... Start Date: 07/05/23 Status: [...] Refills, Maintenance, 03/22/23 11:50:00 EDT, [facility], 161, cm, 03/20/23 17:26:00 EDT, Height, 85, kg, 09/16/22 6:46:00 EST, Dry Weight Start Date: 03/22/23 Status: Ordered ZyrTEC 10 mg oral tablet 1 tablet = 10 mg, By Mouth, Daily at bedtime, # 30 tablet, 5 Refills, Maintenance, 10/31/22 16:24:00 EDT, Tablet, [facility]/pharmacy #1972, Partial fill upon patient request [...] Confirmed Active OCD Confirmed Active *Joseph Resendez, Bit Setter, ICP [phone] Confirmed Active 1Jantoinette Streeter [facility] [place] [facility] [place] 2Case Class C Truck Driver Parish Proctor ([facility]); Psychiatrist [...] Dates Health Status Cl inical Service Informant Urine malodor Discharge Diagnosis 07/19/23 Vital Signs Most recent to oldest [Reference Range]: 1 Height 161 cm (07/19/23 11:19 AM) Oxygen Saturation [94-100 %] 100 % (07/19/23 11:19 AM) Pulse Rate [55-90 bpm] 101 bpm *H* (12/20/23 11:19 AM) Blood Pressure [90-138/55-84 mm Hg] 142/ 78mm Hg *H* (07/19/23 11:19 AM) Temperature [96.8-100.4 DegF] 96.4 DegF *L* (07/19/23 11:19 AM) Mode of Delivery (Oxygen) Room air (07/19/23 11:19 AM) Blood pressure sites Arm, right (07/19/23 11:19 AM) Temperature Route Temporal (07/19/23 11:19 AM) Social History Social History Type Response Smoking Status Never smoker entered on: 02/07/14 Sex Female Note * Janet Meraz: PERFORM, SIGN, VERIFY Event Display: Patient Education/Instruction Authored Date: [id number] [facility] *[facility] Clinical Summary Name PARISH BEAUCHAMP Age 63 Years 1960 PCP Mitch Lopez PCP Visit Date 07/19/2023 10:07:00 Additional Instructions: Scheduled Appointments?? Future Appointments ?No Future Appointments Scheduled Follow-Up Instructions ?? Diagnosis Unspecified abnormal findings in urine Medications: Please continue your medications until treatment [...] AFTER 12 HOURS. Refills: 1. Next Dose: Meloxicam (meloxicam 15 mg oral [...] trimethoprim Medications Given This Visit Future Orders ?No future orders Vital Signs Height 161 cm Weight BMI Blood Pressure 142 mm Hg/78 mm Hg Temperature 96.4 DegF Pulse Rate 101 bpm Respiratory Rate 02 Sat Mode of Delivery 100 %/Room air You can now view a summary of your hospital visit from the comfort of your home through a free online portal called [employer]. [employer] is a website that allows you to securely view your medical information including discharge summary, medications and follow-up visits. ??You can alsosend a secure electronic message to your doctor???s office to request appointments, renew medications or just ask a question. You can enroll at [email or web address] or register during your next office visit. [...] primary care provider, you may find a [facility] provider by calling [facility] [employer] Link at [phone]. [facility], in keeping with [facility] guidance, no longer requires face masks for [...] Associate Professional Member Role: PCP Address: Address: [address] [place] [address] [place] [address]- Care Team Related Persons Name: GABINO CASTANEDA Address: home [address] [place] [address] Name: JERROD BEAUCHAMP Address: home [place], [place] Name: BRE MIRANDA Address: home [address] [place] [address] Name: ALEYDA BEE Address: [address] [place] [address] Name: ALEYDA BEE Address: [address] [place] [address] Name: ROMIE PUENTES Address: home [address] [place] [address]
--- OUTSIDE RECORDS SUMMARY | 2024-04-05 15:20 | XMS_ITS | Continuity of Care Document ---
Author Organization [facility] Address [address] [place] [address]- Care Team Providers Care Ecommerce Marketing Specialist Name Role Phone Mitch Lopez Primary Care Physician [facility] Date[facility]): 02/23/23 - 03/25/23 [facility] [address], [place] [address] Attending Physician: Jana Mercado Admitting Physician: Jana [...] 18 07/18/06 Given 1Admin Note: Administered at [facility] on [facility] in [place]. 2Location History: [facility] pharmacy 3Result Comment: [06/27/2014] PT HAD AT [facility] 4Admin Note: VIS GIVEN VIS DATE 01/30/2012 5Admin Note: flulaval vis given vis date 02/22/2011 6Admin Note: vis given 03/09/10 7Result Comment: Received at [facility] on [facility] 8Admin Note: VIS given 9Admin [...] HOURS, # 30 patch, 1 Refills, Maintenance, 03/20/23 18:05:00 EDT, [facility], 30, 1 patch Topically Daily,PRN: NEEDED FOR PAIN REMOVE AFTER 12 HOURS, 161, cm, 03/20/23 17:26:0... Start Date: 03/20/23 Status: Ordered Mapap Arthritis Pain 650 mg [...] 10/31/22 16:24:00 EDT, Route to Pharmacy Electronically, [facility]/pharmacy #1972, Partial fill upon patien... Start [...] 19:11:00 EDT, Aerosol, Route to Pharmacy Electronically, [id number], [facility], 161... Start Date: 11/24/22 Status: Ordered traMADol 50 mg oral tablet 1 tablet = 50 mg, By Mouth, Every 4 hours, PRN as needed for pain, 0 Refills, Maintenance, :44:00 EST, Tablet, Partial fill upon patient request [...] Refills, Maintenance, 03/22/23 11:50:00 EDT, [facility], 161, cm, 03/20/23 17:26:00 EDT, Height, 85, [...] Confirmed Active OCD Confirmed Active *Joseph Resendez, Septic Tank Installer, ICP [phone] Confirmed Active 1Jantoinette Streeter [facility] [place] [facility] [place] 2Case Dyer Helper Parish Proctor ([facility]); Psychiatrist - Dr Konstantin Narvaez [...] Associate Professional Member Role: PCP Address: Address: [address] [place] [address] [place] [address]- Care Team Related Persons Name: GABINO CASTANEDA Address: home [address] [place] [address] Name: JERROD BEAUCHAMP Address: [place], [place] Name: BRE MIRANDA Address: [address] [place] [address] Name: ALEYDA BEE Address: home [address] [place], [place] Name: ALEYDA BEE Address: [address] [place] [address] Name: ROMIE PUENTES Address: home [address] [place] [id number]
--- OUTSIDE RECORDS SUMMARY | 2024-04-05 15:20 | XMS_ITS | Continuity of Care Document ---
Author Organization [facility] Address [address] [place] [address]- Care Team Providers Care Housing Court Judge Name Role Phone Mitch Lopez Primary Care Physician [facility]counter [facility] Date(s): 03/23/21 - 04/22/21 [facility] [address] [place] [address] Allergies, Adverse [...] Given Patient Refuses 1Result Comment: Received at [facility] on [address] 2Admin Note: VIS given 3Admin Note: Administered at [facility] on [address] in [place]. 4Location History: [facility] pharmacy 5Result Comment: [06/27/2014] PT HAD AT [facility] 6Admin Note: VIS GIVEN VIS DATE 01/30/2012 [...] 1 each, 0 Refills, 04/14/21 19:19:00 EDT, [facility]/pharmacy #1972, INHALE 2 PUFFS EVERY 6 HOURS NEEDED FOR WHEEZING/SHORTNESS OF BREATH, 160.02, cm, 04/14/21 14... Start Date: 04/14/21 Status: Ordered cetirizine 10 mg oral tablet 1 tablet = 10 mg, By Mouth, Daily, # 30 tablet, 0 Refills, Maintenance, 12/04/20 17:24:00 EDT, Tablet, [facility]/pharmacy #1972, Partial fill upon patient request if the prescription is for a schedule II opioid drug., 160.02, cm, 12/04/20 17:05:00 EDT, [place]... Start Date: 12/04/20 Status: Ordered Colace sodium 100 mg oral capsule 100 mg, 1, capsule, By Mouth, 2 times a day, PRN, # 20 capsule, Refills 0, Tot. Refills 0, Maintenance, for constipation, 02/07/21 10:55:00 EDT, Route to Pharmacy Electronically, [facility]/pharmacy #1972, Partial fill upon patient request if [...] 0 Refills, Maintenance, 02/07/21 10:54:00 EDT, Gel, [facility]/pharmacy #1972, Partial fill upon patient request if the prescription is for a schedule II opioid drug., 160.02, cm, 02/04/21 15:57:00 EDT, [place]... Start Date: 02/07/21 Status: Ordered diclofenac 1% topical gel = 4 Gm, Topically, 4 times a day, PRN knee pain, Apply to painful knee, # 100 Gm, 0 Refills, Maintenance, 02/16/21 17:40:00 EDT, Gel, [facility]/pharmacy #1972, Partial fill upon patient request if [...] Gm, 0 Refills, Maintenance, 08/08/20 15:21:00 EST, [place], [facility], Partial fill upon patient [...] 0 Refills, Maintenance, 03/08/21 18:54:00 EDT, Tablet, [facility]/pharmacy #1972, Partial fill upon patient request if the prescription is for a schedule II opioid drug., 160.02, cm, 03/08/21 18:21:00... Start Date: 03/08/21 Stop Date: 03/22/21 Status: Ordered ProAir HFA 90 mcg/inh inhalation aerosol with adapter 2, puffs, Inhalation, Every 6 hours, PRN, # 1 each, Refills 5, Tot. Refills 5, Maintenance, 05/19/20 16:20:00 EDT, Route to Pharmacy Electronically, [id number], [facility]/pharmacy#1972, 160.02, cm, 04/28/20 13:40:00 EDT, Height, 9... Start Date: 05/19/20 Stop Date: 11/15/20 Status: Ordered ProAir HFA 90 mcg/inh inhalation aerosol with adapter 2, puffs, Inhalation, Every 6 hours, PRN, # 1 each, Refills 5, Tot. Refills 5, Maintenance, 06/16/20 18:28:00 EST, Route to Pharmacy Electronically, [id number], [facility]/pharmacy#1972, 160.02, cm, 05/27/20 13:10:00 EDT, Height, 9... [...] 1 Refills, Soft Stop, 10/07/20 9:06:00 EST, [facility]/pharmacy #1972, Partial fill upon patient request if the prescription is for a schedule II opioid drug., 160.... Start Date: 10/07/20 Status: Ordered verapamil 180 mg oral capsule, extended release 1 capsule, By Mouth, Daily, # 30 capsule, 5 Refills, Maintenance, 02/04/21 9:28:00 EDT, [facility], 160.02, cm, 01/26/21 9:12:00 EDT, Height, 88.8, [...] Active *Joseph Resendez, Care Coord inator, ICP [phone](Confirmed) Active 1Jantoinette Streeter [facility] [place] [facility] [place] 2Case Critical Care Specialist Parish Proctor ([facility]); Psychiatrist - [...] BRCA1/2 negative,seen by genetics 6follow up at [facility] GI - Dr Richey. Multiple endoscopies, all normal. Other diagnosis is Non-ulcer dyspepsia Social History Social History Type Response Smoking Status Never smoker entered on: 02/07/14 Sex Female
--- OUTSIDE RECORDS SUMMARY | 2024-04-05 15:20 | XMS_ITS | Continuity of Care Document ---
Author Organization [facility] Address [address] [place] [address]- Care Team Providers Care Principal Mechanical Engineer Name Role Phone Mitch Lopez Primary Care Physician [phone] [facility]counter [facility] Date[facility]s): 12/04/20 - 01/03/21 [facility] [address] [place], [place] [address] Allergies, Adverse Reactions, Alerts [...] Patient Refuses 1Result Comment: Received at [facility] on [address] 2Admin Note: VIS given 3Admin Note: Administered at [facility] on [address] in [place]. 4Location History: [facility] pharmacy 5Result Comment: [06/27/2014] PT HAD AT [facility] 6Admin Note: VIS GIVEN VIS DATE 01/30/2012 [...] Refills, Maintenance, 12/04/20 17:24:00 EDT, Tablet, [facility]/pharmacy #1972, Partial fill upon patient request if [...] Gm, 2 Refills, Maintenance, 09/08/20 14:57:00EST, [facility]/pharmacy #1972, 160.02, cm, 07/29/20 16:36:00 EST, Height, 92.3, kg, 07/24/20 13:24:00 EST, Dry Weight Start Date: 09/08/20 Status: Ordered Flonase 50 mcg/inh nasal spray 1 sprays, Nares, Both, 2 times a day, # 16 Gm, 0 Refills, Maintenance, 08/08/20 15:21:00 EST, [place], [facility]/pharmacy #1972, Partial fill upon patient request if [...] 05/19/20 16:20:00 EDT, Route to Pharmacy Electronically, [id number], [facility], 160.02, cm, 04/28/20 13:40:00 EDT, Height, 9... Start Date: 05/19/20 Stop Date: 11/15/20 Status: Ordered ProAir HFA 90 mcg/inh inhalation aerosol with adapter 2, puffs, Inhalation, Every 6 hours, PRN, # 1 each, Refills 5, Tot. Refills 5, Maintenance, 06/16/20 18:28:00 EST, Route to Pharmacy Electronically, [id number], [facility]/pharmacy#1972, 160.02, cm, 05/27/20 13:10:00 EDT, Height, 9... [...] Refills, Soft Stop, 10/07/20 9:06:00 EST, [facility]/pharmacy #1972, Partial fill upon patient request if [...] Active *Joseph Resendez, Care Coord inator, ICP [phone](Confirmed) Active 1Jantoinette Streeter [facility] [place] [facility] [place] 2Case Teletype Or Varitype Keyboard Operator Parish Porctor ([facility]); Psychiatrist - Dr Konstantin Narvaez 3admitted at adult partial hospitalization program (adult intensive short term out-pt psychiatric program). 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 BRCA1/2 negative,seen by genetics 6follow up at [facility] GI - Dr Richey. Multiple endoscopies, all normal. Other diagnosis is Non-ulcer dyspepsia Social History Social History Type Response Smoking Status Never smoker entered on: 02/07/14 Sex Female
--- OUTSIDE RECORDS SUMMARY | 2024-04-05 15:20 | XMS_ITS | Continuity of Care Document ---
Author Organization [facility] Address [address] [place] [address]- Care Team Providers Care Licensed Clinical Social Worker Name Role Phone Mitch Lopez Primary Care Physician [phone] [facility]counter [facility]): 10/11/23 - 11/10/23 [facility] [address] [facility] [address] [place], [place] [phone] Allergies, Adverse Reactions, Alerts Substance Reaction Severity [...] 18 07/18/06 Given 1Admin Note: Administered at [facility] on [facility] in [place]. 2Location History: [facility] pharmacy 3Result Comment: [06/27/2014] PT HAD AT [facility] 4Admin Note: VIS GIVEN VIS DATE 01/30/2012 5Admin Note: flulaval vis given vis date 02/22/2011 6Admin Note: vis given 03/09/10 7Result Comment: Received at [facility] on [facility] 8Admin Note: VIS given 9Admin [...] each, 11 Refills, Maintenance, 10/23/23 12:15:00 EDT, [facility]/pharmacy #1972, Partial fill upon patient [...] Gm, 3 Refills, Maintenance, 08/28/23 14:07:00 EST, [facility]/pharmacy #1972, 25, 1 application Topically 4 times a day,PRN: NEEDED,Instr:MODERATE PAIN., 161, cm, 08/16/23 11:00:... Start Date: 08/28/23 Status: Ordered hydrOXYzine hydrochloride 25 mg oral tablet 1 tablet, By Mouth, 2 times a day, PRN NEEDED FOR ANXIETY, # 60 tablet, 2 Refills, Maintenance, 10/17/23 11:01:00 EDT, [facility], 161, cm, 09/29/23 11:18:00 EST, Height, 82.1, [...] 10/31/22 16:24:00 EDT, Route to Pharmacy Electronically, [facility]/pharmacy #1972, Partial fill upon patien... Start Date: 10/31/22 Status: Ordered nabumetone 500 mg oral tablet 1 tablet, By Mouth, 2 times a day, TAKE WITH FOOD., # 60 tablet, 0 Refills, Maintenance, 03/31/23 18:55:00 EDT, [facility], 161, cm, 03/29/23 14:07:00 EDT, Height, 85, [...] Confirmed Active OCD Confirmed Active *Joseph Resendez, Barge Master, ICP [phone] Confirmed Active 1Jantoinette Streeter [facility] [place] 2Case Tennis Racket Repairer Parish Proctor ([facility]); Psychiatrist - Dr Konstantin Narvaez 3admitted at adult partial hospitalization program (adult intensive short term out-pt psychiatric program). 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 BRCA1/2 negative,seen by genetics 6follow up at [facility] GI - Dr Richey. Multiple endoscopies, all normal. Other diagnosis is Non-ulcer dyspepsia Social History Social History Type Response Smoking Status Never smoker entered on: 02/07/14 Sex Female Patient Care team information Care Team Personnel Name: Mitch Lopez Position: S PCO Associate Professional Member Role: PCP Address: Address: [address] [place] [address] [place] [address]- Care Team Related Persons Name: GABINO CASTANEDA Address: home [address] [place] [address] Name: JERROD BEAUCHAMP Address: [place], [place] Name: BRE MIRANDA Address: [address] [place] [address] Name: ALEYDA BEE Address: [address] [place] [address] Name: ALEYDA BEE Address: home [address] [place] [address] Name: ROMIE PUENTES Address: home [address] [place] [id number]
--- OUTSIDE RECORDS SUMMARY | 2024-04-05 15:20 | XMS_ITS | Continuity of Care Document ---
Author Organization [facility] Address [address] [place] [address]- Care Team Providers Care Investment Fund Manager Name Role Phone Mitch Lopez Primary Care Physician [facility]22 - 08/20/22 [facility] [address], [place] [address] Attending Physician: Bakari Rollins DO Referring Physician: [...] Given Patient Refuses 1Admin Note: Administered at [facility] on [facility] in [place]. 2Location History: [facility] 3Result Comment: [06/27/2014] PT HAD AT [facility] 4Admin Note: VIS GIVEN VIS DATE 01/30/2012 5Admin Note: flulaval vis given vis date 02/22/2011 6Admin Note: vis given 03/09/10 7Result Comment: Received at [facility] 8Admin Note: VIS given 9Admin Note: [...] tablet, 0 Refills, Maintenance, 04/15/22 16:54:00 EDT, [facility]/pharmacy #1972, Partial fill upon [...] Refills, Maintenance, 07/07/22 18:54:00 EST, [facility], 30, APPLY 1 PATCH TOPICALLY DAILY NEEDED [...] 30 tablet, 3 Refills, Maintenance, 01/03/22 11:56:00EDT, [facility]/pharmacy #1972, Partial fill upon [...] tablet, 0 Refills, Maintenance, 06/19/22 12:17:00 EST, [facility] STORE 59099, 160, cm, 06/07/22 9:36:00 EST, Height, 88.2, kg, 11/11/21 9:53:00 EDT,Dry Weight Start Date: 06/19/22 Status: Ordered Premarin 0.3 mg oral tablet 1 tablet = 0.3 mg, By Mouth, Daily, # 30 tablet, 11 Refills, Maintenance, 07/12/22 14:20:00 EST, [facility]/pharmacy #1972, Partial fill upon patient request if the prescription is for a schedule II opioid drug., 160, cm, 07/12/22 13:43:00 EST, Height, 88.2,... Start Date: 07/12/22 Status: Ordered Shingrix intramuscular injection = 0.5 mL, Intramuscular, Once, repeat dose in 2 to 6 months, # 2 each, 0 Refills, Soft Stop, 06/07/22 10:25:00 EST, Powder, [facility]/pharmacy #1972, Partial fill upon patient request if the prescription is for a schedule II opioid drug., 0.5 mL Intramuscul... Start Date: 06/07/22 Status: Ordered Shingrix intramuscular injection = 0.5 mL, Intramuscular, Once, repeat dose in 2 to 6 months, # 2 each, 0 Refills, Soft Stop, 03/15/22 14:32:00 EDT, Powder, [facility]/pharmacy #1972, Partial fill upon [...] 10:22:00 EST, Aerosol, Route to Pharmacy Electronically, [id number], [facility]/pharmacy #1972, 160... Start Date: 06/07/22 Status: Ordered terazosin 2 mg oral capsule 1, capsule, By Mouth, Daily at bedtime, INSTR:CONTINUE TAKING TILL STONE EXPULSION OR TILL 4 WEEKS AND THEN DISCONTINUE., # 30 capsule, Refills 0, Maintenance, 03/28/22 14:40:00 EDT, Route to Pharmacy Electronically, [facility] STORE 56534, 160, cm, 03/15/22... Start Date: 03/28/22 Status: Ordered Tessalon Perles 100 mg oral capsule 1 capsule = 100 mg, By Mouth, 3 times a day, PRN Cough, # 21 capsule, 0 Refills, Maintenance, 06/17/22 17:34:00 EST, [facility]/pharmacy #1972, Partial fill upon [...] Refills, Maintenance, 06/16/22 9:46:00 EST, [facility], 160, cm, 06/07/22 9:36:00 EST, Height, 88.2, [...] Confirmed Active OCD Confirmed Active *Joseph Resendez, Food Safety Specialist, ICP [phone] Confirmed Active 1Jantoinette Streeter [facility] - [facility] 2Case Parts Identifier Parish Proctor ([facility]); Psychiatrist - [...] BRCA1/2 negative,seen by genetics 6follow up at [facility] GI - Dr Richey. Multiple endoscopies, all normal. Other diagnosis is Non-ulcer dyspepsia Vital Signs Most recent to oldest [Reference Range]: 1 Height 160 cm (08/13/22 1:23 PM) Weight 87.5 kg (08/13/22 1:23 PM) Oxygen Saturation [94-100 %] 98 % (08/13/22 1:23 PM) Pulse Rate [55-90 bpm] 73 bpm (08/13/22 1:23 PM) Body Mass Index [18.5-24.99 kg/m2] 34.18 kg/m2 *>HHI* (08/13/22 1:23 PM) Blood Pressure [90-138/55-84 mm Hg] 140/ 76mm Hg *H* (08/13/22 1:23 PM) Temperature [96.8-100.4 DegF] 97.5 DegF (08/13/22 1:23 PM) Mode of Delivery (Oxygen) Room air (08/13/22 1:23 PM) Blood pressure sites Arm, right (08/13/22 1:23 PM) Temperature Route Temporal (08/13/22 1:23 PM) Dry Weight 87.5 kg (08/13/22 1:23 PM) Weight Obtained Via Standing scale (08/13/22 1:23 PM) Dry Weight Obtained Via Standing scale (08/13/22 1:23 PM) Social History Social History Type Response Smoking Status Never smoker entered on: 02/07/14 Sex Female Note * Janet Meraz: PERFORM, SIGN, VERIFY Event Display: Patient Education/Instruction Authored Date: [id number] [facility] *[facility] Clinical Summary Name PARISH BEAUCHAMP Age 62 Years 1960 PCP Lyn CASAREZ, Mitch PCP Visit Date 08/13/2022 13:09:00 Additional Instructions: Scheduled Appointments?? Future Appointments ?No Future Appointments Scheduled Follow-Up Instructions ?? Diagnosis Medications: Please continue your medications until treatment is completed or stopped by your provider. Discuss any questions related to medications with your provider. Medications to Continue with No Changes These medications were not printed or sent to your pharmacy Acetaminophen (acetaminophen 500 mg oral tablet) 2 tab(s) Oral every 8 hours. for pain. Refills: 0. Next Dose: Albuterol (Ventolin HFA 108 mcg/inh inhalation aerosol with adapter) 2 puff(s) Inhalation every 6 hours as needed for wheezing. BILL BRAND NAME PER INSURANCE. Refills: 5. Next Dose: Benzonatate (Tessalon Perles 100 mg oral capsule) 1 capsule Oral 3 times a day as needed Cough for 7 Days. Refills: 0. Next Dose: Budesonide-Formoterol (Symbicort 160mcg/4.5mcg Inhaler) 2 puff(s) Inhalation twice a day. rinse mouth and throat after use. Refills: 11. Next Dose: BuPROpion (buPROPion 150 mg/24 hours (XL) oral tablet, extended release) TAKE 1 TABLET BY MOUTH EVERY DAY. Next Dose: Conjugated Estrogens (Premarin 0.3 mg oral tablet) 1 tab(s) Oral Daily. Refills: 11. Next Dose: Durable Medical Equipment (life line via cellular /wrist bracelet) impaired mobility z74.09 , risk for falls z91.81. Refills: 0. Next Dose: Estradiol Topical (Estrace Vaginal Cream 0.1 mg/g) 1 gram Vaginally every Monday and . Refills: 2. Next Dose: Fluoxetine (FLUoxetine 40 mg oral capsule) TAKE 1 CAPSULE BY MOUTH EVERY DAY. Next Dose: Guaifenesin/Dextromethorphan (Coricidin HBP Chest Congestion & Cough 10 mg-200 mg oral capsule)1 capsule Oral every 4 hours as needed for cough. not to exceed 12 capsules/day. Refills: 0. Next Dose: Lidocaine Topical (lidocaine 5% topical film) 1 patch(es) Topically Daily as needed NEEDED FOR PAIN REMOVE AFTER 12 HOURS. Refills: 1. Next Dose: Melatonin (melatonin 3 mg oral tablet) 1 tab(s) Oral Daily at Bedtime. Refills: 3. Next Dose: Montelukast (montelukast 10 mg oral tablet) TAKE 1 TABLET BY MOUTH EVERY DAY IN THE EVENING. Next Dose: Nabumetone (nabumetone 500 mg oral tablet) 1 tab(s) Oral twice a day. TAKE WITH FOOD.. Refills: 0. Next Dose: Pyridoxine (Vitamin B6 100 mg oral tablet) 1 tab(s) Oral Daily. Next Dose: Sumatriptan (SUMAtriptan 50 mg oral tablet) 1 tab(s) Oral once as needed Headache. may repeat dose once in 2 hours. Refills: 1. Next Dose: Terazosin (terazosin 2 mg oral capsule) 1 capsule Oral Daily at Bedtime. INSTR:CONTINUE TAKING TILLSTONE EXPULSION OR TILL 4 WEEKS AND THEN DISCONTINUE.. Refills: 0. Next Dose: Tiotropium (Spiriva Respimat 1.25 mcg/inh inhalation aerosol) 2 puff(s) Inhalation Daily. Refills: 11. Next Dose: Tramadol (traMADol 50 mg oral tablet) 1 tab(s) Oral twice a day. for severe pain. Refills: 0. Next Dose: Tramadol (traMADol 50 mg oral tablet) 1 tab(s) Oral twice a day. for severe pain. Refills: 0. Next Dose: Verapamil (verapamil 180 mg oral capsule, extended release) 1 capsule Oral Daily. Refills: 5. Next Dose: zoster vaccine, inactivated (Shingrix intramuscular injection) 0.5 Milliliter Intramuscular once. repeat dose in 2 to 6 months. Refills: 0. Next Dose: zoster vaccine, inactivated (Shingrix intramuscular injection) 0.5 Milliliter Intramuscular once. repeat dose in 2 to 6 months. Refills: 0. Next Dose: Allergy Info:?? Bactrim; Compazine; sulfa drugs Medications Given This Visit Future Orders ?No future orders Vital Signs Height 160 cm Weight 87.5 kg BMI 34.18 kg/m2 Blood Pressure 140 mm Hg/76 mm Hg Temperature 97.5 DegF Pulse Rate 73 bpm Respiratory Rate 02 Sat Mode of Delivery 98 %/Room air You can now view a summary of your hospital visit from the comfort of your home through a free online portal called [employer]. [employer] is a website that allows you to securely view your medical information including discharge summary, medications and follow-up visits. ??You can alsosend a secure electronic message to your doctor???s office to request appointments, renew medications or just ask a question. You can enroll at [email or web address] or register during your next office visit. [...] primary care provider, you may find a [facility] provider by calling [facility] [employer] Link at [phone]. For information about the plan of care [...] Associate Professional Member Role: PCP Address: Address: [address] [place] [address] [place] [address]- Care Team Related Persons Name: GABINO CASTANEDA Address: home [address] [place] [address] Name: BRE MIRANDA Address: home [address] [place] [address] Name: ALEYDA BEE Address: home [address] [place] [address] Name: ALEYDA BEE Address: home [address] [place] [address] Name: ROMIE PUENTES Address: home [address] [place] [address]
--- OUTSIDE RECORDS SUMMARY | 2024-04-05 15:20 | XMS_ITS | Continuity of Care Document ---
Author Organization [facility] Address [address] [place] [address]- Care Team Providers Care Dust Mill Operator Name Role Phone Mitch Lopez Primary Care Physician [phone] [facility]23 - 04/28/23 [facility] [address] [place], [place] [address] Allergies, Adverse Reactions, Alerts Substance Reaction Severity Status trimethoprim Urticaria Active prochlorperazine Unknown Active Compazine unknown Active Bactrim bruising Active sulfa drugs Breathing [...] 18 07/18/06 Given 1Admin Note: Administered at [facility] on [facility] in [place]. [facility] 3Result Comment: [06/27/2014] PT HAD AT [facility] 4Admin Note: VIS GIVEN VIS DATE 01/30/2012 5Admin Note: flulaval vis given vis date 02/22/2011 6Admin Note: vis given 03/09/10 7Result Comment: Received at [facility] on [facility] 8Admin Note: VIS given 9Admin Note: [...] opioid drug. Start Date: 09/14/22 Status: Ordered [facility] MELATONIN 3 MG TABLET [facility] MELATONIN 3 MG TABLET, [...] tablet, 2 Refills, Maintenance, 03/31/23 18:55:00 EDT, [facility] STORE 58952, 161, cm, 03/29/23 14:07:00 EDT, Height, 85, [...] tablet, 0 Refills, Maintenance, 03/31/23 18:55:00 EDT, [facility] STORE 10223, 161, cm, 03/29/23 14:07:00 EDT, Height, 85, [...] 19:11:00 EDT, Aerosol, Route to Pharmacy Electronically, [id number], [facility], 161... Start Date: 11/24/22 Status: [...] Refills, Maintenance, 03/22/23 11:50:00 EDT, [facility], 161, cm, 03/20/23 17:26:00 EDT, Height, 85, [...] Active OCD Confirmed Active *Joseph Resendez, Special Events Driver, ICP [phone] Confirmed Active 1Jantoinette Streeter [facility] [place] 2Case Multimedia Producer Parish Proctor ([facility]); Psychiatrist - Dr Konstantin Narvaez 3admitted at adult partial hospitalization program (adult intensive short term out-pt psychiatric program). 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 BRCA1/2 negative,seen by genetics 6follow up at [facility] GI - Dr Richey. Multiple endoscopies, all normal. Other diagnosis is Non-ulcer dyspepsia Social History Social History Type Response Smoking Status Never smoker entered on: 02/07/14 Sex Female Patient Care team information Care Team Personnel Name: Mitch Lopez Position: S PCO Associate Professional Member Role: PCP Address: Address: [address] [place] [address] [place] [address]- Care Team Related Persons Name: GABINO CASTANEDA Address: home [address] [place] [address] Name: JERROD BEAUCHAMP Address: [place], [place] Name: BRE MIRANDA Address: home [address] [place] [address] Name: ALEYDA BEE Address: home [address] [place] [address] Name: ALEYDA BEE Address: home [address] [place] [address] Name: ROMIE PUENTES Address: home [address] [place] [address]
--- OUTSIDE RECORDS SUMMARY | 2024-04-05 15:20 | XMS_ITS | Continuity of Care Document ---
Author Organization [facility] Address [address] [place] [address]- Care Team Providers Care Basketball Scout Name Role Phone Mitch Lopez Primary Care Physician [phone] Encounter [facility] Date(s[place] 07/02/23 - 07/09/23 [facility] [address] [place] [address]- Attending Physician: Prachi Olivas MD Referring Physician: [...] Administered at [facility] on [facility] in [place]. 2Location History: [facility] 3Result Comment: [06/27/2014] PT HAD AT [facility] 4Admin Note: VIS GIVEN VIS DATE 01/30/2012 5Admin Note: flulaval vis given vis date 02/22/2011 6Admin Note: vis given 03/09/10 7Result Comment: Received at [facility] on [facility] 8Admin [...] Refills, Maintenance, 07/06/23 14:28:00 EST, [facility], 25, USE 1 APPLICATION TOPICALLY 4 TIMES A DAY NEEDED MODERATE PAIN, 161, cm, 07/05/23 10:50:00 EST, He... Start Date: 07/06/23 Status: Ordered hydrOXYzine hydrochloride 25 mg oral tablet 1 tablet, By Mouth, 2 times a day, PRN NEEDED FOR ANXIETY, # 60 tablet, 2 Refills, Maintenance, 06/09/23 19:43:00 EST, [facility], 161, cm, 05/27/23 9:13:00 EDT, Height, 85, kg, 09/16/22 6:46:00 EST, Dry Weight Start Date: 06/09/23 Status: Ordered lidocaine 5% topical film 1 patch, Topically, Daily, PRN NEEDED FOR PAIN REMOVE AFTER 12 HOURS, # 30 patch, 1 Refills, Maintenance, 03/29/23 15:10:00 EDT, [facility]/pharmacy #1972, 30, 1 patch Topically Daily,PRN: NEEDED FOR PAIN REMOVE AFTER 12 HOURS, 161, cm, 03/29/23 14:07:0... Start Date: 03/29/23 Status: Ordered Mapap Arthritis Pain 650 mg oral tablet, extended release 2 tablet = 1,300 mg, By Mouth, Every 8 hours, PRN as needed for pain, # 100 tablet, 1 Refills, Maintenance, 03/30/23 21:21:00 EDT, ER Tablet, [facility]/pharmacy #1972, Partial fill upon patient request if the prescription is for a schedule II opioid drug.,... Start Date: 03/30/23 Status: Ordered meloxicam 15 mg oral tablet 1 tablet = 15 mg, By Mouth, Daily, for pain take with food please, # 10 tablet, 0 Refills, Maintenance, 12/30/22 15:43:00 EDT, [facility]/pharmacy #1972, Partial [...] 18:55:00 EDT, [facility] STORE 20706, 161, cm, 03/29/23 14:07:00 EDT, Height, 85, [...] 10:54:00 EST, Aerosol, Route to Pharmacy Electronically, [id number], [facility]/pharmacy #1972, 161... Start [...] Refills, Maintenance, 03/22/23 11:50:00 EDT, [facility], 161, cm, 03/20/23 17:26:00 EDT, Height, 85, [...] Confirmed Active OCD Confirmed Active *Joseph Resendez, Surgical Coordinator, ICP [phone] Confirmed Active 1Jantoinette Streeter [facility] [place] 2Case Physiologist Parish Proctor ([facility]); Psychiatrist - Dr Konstantin Narvaez 3admitted [...] oldest [Reference Range]: 1 Height 161 cm (07/02/23 8:23 AM) Oxygen Saturation [94-100 %] 98 % (07/02/23 8:23 AM) Pulse Rate [55-90 bpm] 80 bpm (07/02/23 8:23 AM) Blood Pressure [90-138/55-84 mm Hg] 141/ 76mm Hg *H* (07/02/23 8:23 AM) Temperature [96.8-100.4 DegF] 96.7 DegF *L* (07/02/23 8:23 AM) Mode of Delivery (Oxygen) Room air (07/02/23 8:23 AM) Blood pressure sites Arm, right (07/02/23 8:23 AM) Temperature Route Temporal (07/02/23 8:23 AM) Social History Social History Type Response Smoking Status Never smoker entered on: 02/07/14 Sex Female Note * Janet Meraz: PERFORM, SIGN, VERIFY Event Display: Patient Education/Instruction Authored Date: [id number] [facility] *[facility] Clinical Summary Name PARISH BEAUCHAMP Age 63 Years 1960 PCP Mitch Lopez PCP Visit Date 07/02/2023 08:06:00 Additional Instructions: Scheduled Appointments?? Future Appointments ?*[facility] [address] ?[place],??[place],??[address] ?Phone:??--?Fax:??-- ?Appt. Date:??07/05/2023?10:30 AM ?Scheduled Provider:??Mitch Lopez Follow-Up Instructions ?? [...] eh Topically 4 times a day as needed Pain , Moderate. Refills: 3. Next Dose: HydrOXYzine (hydrOXYzine hydrochloride [...] as needed as needed forpain. Next Dose: Tiotropium (Spiriva Respimat 1.25 mcg/inh [...] Height 161 cm Weight BMI Blood Pressure 141 mm Hg/76 mm Hg Temperature 96.7 DegF Pulse Rate 80 bpm Respiratory Rate 02 Sat Mode of Delivery 98 %/Room air You can now view a summary of your hospital visit from the comfort of your home through a free online portal called [employer]. [employer] is a website that allows you to [...] primary care provider, you may find a [facility] provider by calling [facility] [employer] Link at [phone]. [facility], in keeping with [facility] guidance, no longer requires face [...] Team Personnel Name: Mitch Lopez Position: [facility] PCO Associate Professional Member Role: PCP Address: Address: [address] [place] [address] [place] [address]- [place] Care Team Related Persons Name: GABINO CASTANEDA Address: home [address] [place] [address] Name: JERROD BEAUCHAMP Address: [place], [place] Name: BRE MIRANDA Address: home [address] [place] [address] Name: ALEYDA BEE Address: home [address] [place] [address] Name: ALEYDA BEE Address: home [address] [place] [address] Name: ROMIE PUENTES Address: home [address] [place] [address]
--- OUTSIDE RECORDS SUMMARY | 2024-04-05 15:21 | XMS_ITS | Continuity of Care Document ---
Author Organization [facility] Address [address] [place] [address]- Care Team Providers Care Manager Air Name Role Phone Mitch Lopez Primary Care Physician [phone] [facility] 09[facility]13[facility]21 - 11/03/21 [facility] [address] [place], [place] [address] Attending Physician: Mitch Lopez Admitting Physician: [...] Given Patient Refuses 1Result Comment: Received at [facility] on [facility] 2Admin Note: VIS given 3Admin Note: Administered at [facility] on [facility] in [place]. 4Location History: [facility] pharmacy 5Result Comment: [06/27/2014] PT HAD AT [facility] 6Admin Note: VIS GIVEN VIS DATE [...] 10/14/21 18:29:00 EDT, Route to Pharmacy Electronically, [facility]/pharmacy #1972, Partial fill upon patient request if the prescription is for a sched... Start Date: 10/14/21 Stop Date: 10/19/21 Status: Ordered buPROPion 150 mg/24 hours (XL) oral tablet, extended release TAKE 1 TABLET BY MOUTH EVERY DAY Start Date: 05/05/21 Status: Ordered [facility] MELATONIN 3 MG TABLET [facility] MELATONIN 3 MG TABLET, 1, tablet, By Mouth, Daily at bedtime, # 30 tablet, 2 Refills, Maintenance, 02/17/21 19:34:00 EDT, 160.02, cm, 02/16/21 17:20:00 EDT, Height, 88.8, kg, 11/24/20 15:58:00 EDT, Dry Weight Start Date: 02/17/21 Status: Ordered Estrace Vaginal Cream 0.1 mg/g = 1 Gm, Vaginally, Every Monday and , # 42.5 Gm, 2 Refills, Maintenance, 09/08/20 14:57:00EST, [facility]/pharmacy #1972, 160.02, cm, 07/29/20 16:36:00 [...] A DAY, # 120 tablet, 2 Refills, [facility] STORE 69480, 160.02, cm, 07/05/21 10:30:00 EST, Height, 85, kg, 03/11/21 17:07:00 EDT, Dry Weight Start Date: 08/22/21 Status: Ordered meloxicam 7.5 mg oral tablet 1 tablet, By Mouth, Daily, FOR ARTHRITIS PAIN. TAKE WITH FOOD, # 30 tablet, 1 Refills, [facility] STORE 18764, 160.02, cm, 09/16/21 14:31:00 EST, Height, 85, [...] 09/07/21 11:12:00 EST, Route to Pharmacy Electronically, [id number], [facility]/pharmacy #1972, 160.02, cm, 09/07/21 10:18:00 EST, Height,... Start Date: 09/07/21 Stop Date: 09/02/22 Status: Ordered Spiriva Respimat 1.25 mcg/inh inhalation aerosol 2 PUFFS INHALATION ONCE A DAY 30 DAYS Start Date: 05/05/21 Status: Ordered Spiriva Respimat 1.25 mcg/inh inhalation aerosol 2 puffs, Inhalation, Daily, # 1 each, 11 Refills, Maintenance, 09/07/21 11:12:00 EST, [facility]/pharmacy #1972, Partial fill upon [...] 1 Refills, Soft Stop, 10/07/20 9:06:00 EST, [facility]/pharmacy #1972, Partial fill upon [...] 17:59:00 EST, Aerosol, Route to Pharmacy Electronically, [id number], [facility]/pharmacy #1972, 160... Start Date: 09/08/21 [...] # 30 capsule, 5 Refills, [facility], 160.02, cm, 07/05/21 10:30:00EST, Height, 85, kg, [...] Active OCD(Confirmed) Active *Joseph Resendez, [facility] [phone](Confirmed) Active Dyan Streeter [facility] [place] [facility] [place] 2Case Manager Ed Parish Proctor ([facility]); Psychiatrist - Dr Konstantin [...]
--- OUTSIDE RECORDS SUMMARY | 2024-04-05 15:21 | XMS_ITS | Continuity of Care Document ---
Author Organization [facility] ter Address [address] [place] [address]- Care Team Providers Care Lobby Attendant Name Role Phone Mitch Lopez Primary Care Physician [facility]20 - 09/10/[address] [address] Attending Physician: Gomez Houston MD Admitting Physician: Gomez Houston MD Referring Physician: Gomez Houston MD Allergies, Adverse Reactions, Alerts Substance Reaction [...] Refuses 1Result Comment: Received at [facility] on [address] 2Admin Note: VIS given 3Admin Note: Administered at [facility] on [address] in [place]. 4Location History: [facility] pharmacy 5Result Comment: [06/27/2014] [...] Gm, 0 Refills, Maintenance, 08/08/20 15:21:00 EST, [place], [facility], Partial fill upon patient request [...] Acute 09/27/20 17:22:00 EST, 07/29/20 17:22:00 EST, [facility]/pharmacy #1972, Partial fill upon patient request if [...] 05/19/20 16:20:00 EDT, Route to Pharmacy Electronically, [id number], [facility]/pharmacy#1972, 160.02, cm, 04/28/20 13:40:00 EDT, Height, 9... Start Date: 05/19/20 Stop Date: 11/15/20 Status: Ordered ProAir HFA 90 mcg/inh inhalation aerosol with adapter 2, puffs, Inhalation, Every 6 hours, PRN, # 1 each, Refills 5, Tot. Refills 5, Maintenance, 06/16/20 18:28:00 EST, Route to Pharmacy Electronically, [id number], [facility]/pharmacy#1972, 160.02, cm, 05/27/20 13:10:00 EDT, Height, 9... [...] 30 capsule, 11 Refills, [facility], [facility], 160.02, cm, 10/11/19 15:24:00 EDT, Height, 85.91, [...] Active *Joseph Resendez, Care Coord inator, ICP [phone](Confirmed) Active 1Jantoinette Streeter [facility] [place] 2Case Mechanical Cad Drafter Parish Proctor ([facility]); Psychiatrist - Dr Konstantin [...]
--- OUTSIDE RECORDS SUMMARY | 2024-04-05 15:21 | XMS_ITS | Continuity of Care Document ---
Author Organization [facility] Address [address] [place] [address]- Care Team Providers Care Disease Control Inspector Name Role Phone iMtch Lopez Primary Care Physician Encounter [facility] Date(s): 05/27/23 - 06/03/23 [facility] [address] [place] [address]- Attending Physician: Prachi Olivas MD Referring Physician: [...] 18 07/18/06 Given 1Admin Note: Administered at [facility] on [facility] in [place]. 2Location History: [facility] pharmacy 3Result Comment: [06/27/2014] PT HAD AT [facility] 4Admin Note: VIS GIVEN VIS DATE 01/30/2012 5Admin Note: flulaval vis given vis date 02/22/2011 6Admin Note: vis given 03/09/10 7Result Comment: Received at [facility] on [facility] 8Admin Note: VIS given 9Admin Note: [...] opioid drug. Start Date: 09/14/22 Status: Ordered [facility] MELATONIN 3 MG TABLET [facility] MELATONIN 3 MG TABLET, [...] tablet, 2 Refills, Maintenance, 03/31/23 18:55:00 EDT, [facility] STORE 50960, 161, cm, 03/29/23 14:07:00 EDT, Height, 85, [...] tablet, 0 Refills, Maintenance, 12/30/22 15:43:00 EDT, [facility]/pharmacy #1972, [...] 10/31/22 16:24:00 EDT, Route to Pharmacy Electronically, [facility]/pharmacy #1972, Partial fill upon patien... Start Date: 10/31/22 Status: Ordered nabumetone 500 mg oral tablet 1 tablet, By Mouth, 2 times a day, TAKE WITH FOOD., # 60 tablet, 0 Refills, Maintenance, 03/31/23 18:55:00 EDT, [facility] STORE 73169, 161, cm, 03/29/23 14:07:00 EDT, Height, 85, [...] 19:11:00 EDT, Aerosol, Route to Pharmacy Electronically, [id number], [facility], 161... Start Date: 11/24/22 Status: [...] Refills, Maintenance, 03/22/23 11:50:00 EDT, [facility], 161, cm, 03/20/23 17:26:00 EDT, Height, 85, [...] Confirmed Active OCD Confirmed Active *Joseph Resendez, Integrated Marketing Specialist, ICP [phone] Confirmed Active 1Jantoinette Streeter [facility] 2Case 3D Technologist Parish Proctor ([facility]); Psychiatrist - Dr Konstantin Narvaez 3admitted at adult partial hospitalization program (adult intensive short term out-pt psychiatric program). 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 BRCA1/2 negative,seen by genetics 6follow up at [facility] - Dr Richey. Multiple endoscopies, all normal. Other diagnosis is Non-ulcer dyspepsia Vital Signs Most recent to oldest [Reference Range]: 1 Height 161 cm (05/27/23 9:13 AM) Oxygen Saturation [94-100 %] 99 % (05/27/23 9:13 AM) Pulse Rate [55-90 bpm] 78 bpm (05/27/23 9:13 AM) Blood Pressure [90-138/55-84 mm Hg] 136/ 87mm Hg (05/27/23 9:13 AM) Respiratory Rate [16-30 br/min] 16 br/mi n (05/27/23 9:13 AM) Temperature [96.8-100.4 DegF] 97.9 DegF (05/27/23 9:13 AM) Mode of Delivery (Oxygen) Room air (05/27/23 9:13 AM) Blood pressure sites Arm, right (05/27/23 9:13 AM) Temperature Route Temporal (05/27/23 9:13 AM) Social History Social History Type Response Smoking Status Never smoker entered on: 02/07/14 Sex Female Note * Richmond Alonzo: PERFORM, SIGN, VERIFY Event Display: Patient Education/Instruction Authored Date: [id number] [facility] *[facility] Clinical Summary Name PARISH BEAUCHAMP Age 63 Years 1960 PCP Mitch Lopez PCP Visit Date 05/27/2023 08:16:00 Additional Instructions: Scheduled Appointments?? Future Appointments ?No [...] Height 161 cm Weight BMI Blood Pressure 136 mm Hg/87 mm Hg Temperature 97.9 DegF Pulse Rate 78 bpm Respiratory Rate 16 br/min 02 Sat Mode of Delivery 99 %/Room air You can now view a summary of your hospital visit from the comfort of your home through a free online portal called Maven. Maven is a website that allows you to securely view your medical information including discharge summary, medications and follow-up visits. ??You can alsosend a secure electronic message to your doctor???s office to request appointments, renew medications or just ask a question. You can enroll at [email or web address] or register during your next office [...] care provider, you may find a [facility] provider by calling [facility] [employer] [facility] at [phone]. [facility], in keeping with [place] DPH guidance, no longer requires face masks for [...] Care Team Personnel Name: Mitch Lopez Position: [facility] PCO Associate Professional Member Role: PCP Address: Address: [address] [place] [address] [place] [address]- [place] Care Team Related Persons Name: GABINO CASTANEDA Address: home [address] [place] [address] Name: JERROD BEAUCHAMP Address: [place], [place] Name: BRE MIRANDA Address: home [address] [place] [address] Name: ALEYDA BEE Address: home [address] [place] [address] Name: ALEYDA BEE Address: home [address] [place] [address] Name: ROMIE PUENTES Address: home [address] [place] [id number]
--- OUTSIDE RECORDS SUMMARY | 2024-04-05 15:21 | XMS_ITS | Continuity of Care Document ---
Author Organization [facility] Address [address] [place] [address]- Care Team Providers Care Trolley Car Overhauler Name Role Phone Mitch Lopez Primary Care Physician [phone] Encounter [facility] Date(s): 11/13/21 - 11/20/21 [facility] [address] [place], [place] [address] Attending Physician: Bakari Rollins DO Referring [...] at [facility] on [address] 2Admin Note: VIS given 3Admin Note: Administered at [facility] on [facility] in [place]. [facility] 5Result Comment: [06/27/2014] PT HAD AT [facility] 6Admin Note: VIS GIVEN VIS DATE 01/30/2012 [...] 10/14/21 18:29:00 EDT, Route to Pharmacy Electronically, [facility]/pharmacy #1972, Partial fill upon patient request if the prescription is for a sched... Start Date: 10/14/21 Stop Date: 10/19/21 Status: Ordered buPROPion 150 mg/24 hours (XL) oral tablet, extended release TAKE 1 TABLET BY MOUTH EVERY DAY Start Date: 05/05/21 Status: Ordered [facility] MELATONIN 3 MG TABLET [facility] MELATONIN 3 MG TABLET, 1, tablet, By Mouth, Daily at bedtime, # 30 tablet, 2 Refills, Maintenance, 02/17/21 19:34:00 EDT, 160.02, cm, 02/16/21 17:20:00 EDT, Height, 88.8, kg, 11/24/20 15:58:00 EDT, Dry Weight Start Date: 02/17/21 Status: Ordered Estrace Vaginal Cream 0.1 mg/g = 1 Gm, Vaginally, Every Monday and , # 42.5 Gm, 2 Refills, Maintenance, 09/08/20 14:57:00EST, [facility]/pharmacy #1972, 160.02, cm, 07/29/20 16:36:00 EST, Height, [...] A DAY, # 120 tablet, 2 Refills, [facility] STORE 02255, 160.02, cm, 07/05/21 10:30:00 EST, Height, 85, kg, 03/11/21 17:07:00 EDT, Dry Weight Start Date: 08/22/21 Status: Ordered meloxicam 7.5 mg oral tablet 1 tablet, By Mouth, Daily, FOR ARTHRITIS PAIN. TAKE WITH FOOD, # 30 tablet, 1 Refills, [facility] STORE 07951, 160.02, cm, 09/16/21 14:31:00 EST, Height, 85, [...] 09/07/21 11:12:00 EST, Route to Pharmacy Electronically, [id number], [facility]/pharmacy #1972, 160.02, cm, 09/07/21 10:18:00 EST, Height,... Start Date: 09/07/21 Stop Date: 09/02/22 Status: Ordered Spiriva Respimat 1.25 mcg/inh inhalation aerosol 2 PUFFS INHALATION ONCE A DAY 30 DAYS Start Date: 05/05/21 Status: Ordered Spiriva Respimat 1.25 mcg/inh inhalation aerosol 2 puffs, Inhalation, Daily, # 1 each, 11 Refills, Maintenance, 09/07/21 11:12:00 EST, [facility]/pharmacy #1972, [...] Stop, 10/07/20 9:06:00 EST, [facility]/pharmacy #1972, [...] 17:59:00 EST, Aerosol, Route to Pharmacy Electronically, [id number], [facility]/pharmacy #1972, 160... Start Date: 09/08/21 Status: Ordered [...] # 30 capsule, 5 Refills, [facility], 160.02, cm, 07/05/21 10:30:00EST, Height, 85, kg, [...] I(Confirmed) Active OCD(Confirmed) Active *Joseph Resendez, Kendell Coord avril, [facility] [phone](Confirmed) Active Dyan Streeter [facility] [place] 2Case Student Development Dean Parish Proctor ([facility]); Psychiatrist - [...] oldest [Reference Range]: 1 Height 160 cm (11/13/21 3:23 PM) Oxygen Saturation [94-100 %] 100 % (11/13/21 3:23 PM) Pulse Rate [55-90 bpm] 83 bpm (11/13/21 3:23 PM) Blood Pressure [90-138/55-84 mm Hg] 161/ 89mm Hg *H* (11/13/21 3:23 PM) Temperature [96.8-100.4 DegF] 97.6 DegF (11/13/21 3:23 PM) Mode of Delivery (Oxygen) Room air (11/13/21 3:23 PM) Blood pressure sites Arm, right (11/13/21 3:23 PM) Temperature Route Temporal (11/13/21 3:23 PM) Social History Social History Type Response Smoking Status Never smoker entered on: 02/07/14 Sex Female
--- OUTSIDE RECORDS SUMMARY | 2024-04-05 15:21 | XMS_ITS | Continuity of Care Document ---
Author Organization [facility] Address [address] [place] [address]- Care Team Providers Care Stereotype Caster Name Role Phone Mitch Lopez Primary Care Physician Encounter [facility] Date(s): 10/21/23 - 11/20/23 [facility] [address] [place] [address]- Attending Physician: Jana Mercado Admitting Physician: AdmtrJana [...] 18 07/18/06 Given 1Admin Note: Administered at [facility] on [facility] in [place]. 2Location History: [facility] pharmacy 3Result Comment: [06/27/2014] PT HAD AT [facility] 4Admin Note: VIS GIVEN VIS DATE 01/30/2012 5Admin Note: flulaval vis given vis date 02/22/2011 6Admin Note: vis given 03/09/10 7Result Comment: Received at [facility] on [facility] 8Admin Note: VIS given 9Admin [...] each, 11 Refills, Maintenance, 10/23/23 12:15:00 EDT, [facility]/pharmacy #1972, Partial fill upon patient [...] Gm, 3 Refills, Maintenance, 08/28/23 14:07:00 EST, [facility]/pharmacy #1972, 25, 1 application Topically 4 times a day,PRN: NEEDED,Instr:MODERATE PAIN., 161, cm, 08/16/23 11:00:... Start Date: 08/28/23 Status: Ordered hydrOXYzine hydrochloride 25 mg oral tablet 1 tablet, By Mouth, 2 times a day, PRN NEEDED FOR ANXIETY, # 60 tablet, 2 Refills, Maintenance, 10/17/23 11:01:00 EDT, [facility] STORE 30393, 161, cm, 09/29/23 11:18:00 EST, Height, 82.1, [...] tablet, 0 Refills, Maintenance, 03/31/23 18:55:00 EDT, [facility] STORE 40082, 161, cm, 03/29/23 14:07:00 EDT, Height, 85, [...] Confirmed Active OCD Confirmed Active *Joseph Resendez, Shop Clerk, ICP [phone] Confirmed Active 1Jantoinette Streeter [facility] [place] 2Case Floor Space Allocator Parish Proctor ([facility]); Psychiatrist - [...] Professional Member Role: PCP Address: Address: [address] [place] [address] [place] [address]- Care Team Related Persons Name: GABINO CASTANEDA Address: home [address] [place] [id number] Name: JERROD BEAUCHAMP Address: home [place], [place] Name: BRE MIRANDA Address: home [address] [place] [address] Name: ALEYDA BEE Address: home [address] [place] [address] Name: ALEYDA BEE Address: home [address] [place] [address] Name: ROMIE PUENTES Address: home [address] [place] [address]
--- OUTSIDE RECORDS SUMMARY | 2024-04-05 15:21 | XMS_ITS | Continuity of Care Document ---
Author Organization [facility] Address [address] [place] [address]- Care Team Providers Care Defence Force Member Other Ranks Name Role Phone Mitch Loepz Primary Care Physician [phone] [facility] Date[facility]s): 01/25/22 - 02/24/22 [facility] [address] [place] [id number] Allergies, Adverse Reactions, Alerts Substance [...] Patient Refuses 1Admin Note: Administered at [facility] on [facility] in [place]. 2Location History: [facility] pharmacy 3Result Comment: [06/27/2014] PT HAD AT [facility] 4Admin Note: VIS GIVEN VIS DATE 01/30/2012 5Admin Note: flulaval vis given vis date 02/22/2011 6Admin Note: vis given 03/09/10 7Result Comment: Received at [facility] on [facility] 8Admin Note: VIS given 9Admin Note: [...] # 120 tablet, 2 Refills, [facility], 160, cm, 11/22/21 10:23:00 EDT, Height, 88.2, [...] # 30 tablet, 0 Refills, [facility], 160, cm, 01/20/22 15:38:00 EDT, Height, 88.2, kg, 11/11/21 9:53:00 EDT, Dry Weight Start Date: 02/07/22 Status: Ordered meloxicam 7.5 mg oral tablet 1 tablet, By Mouth, Daily, PRN NEEDED FOR PAIN WITH FOOD, # 30 tablet, 1 Refills, [facility] STORE 78010, 160, cm, 01/20/22 15:38:00 EDT, Height, 88.2, kg, 11/11/21 9:53:00 EDT, Dry Weight Start Date: 02/01/22 Status: Ordered montelukast 10 mg oral tablet TAKE 1 TABLET BY MOUTH EVERY DAY IN THE EVENING Start Date: 05/05/21 Status: Ordered Premarin 0.3 mg oral tablet 1 tablet = 0.3 mg, By Mouth, Daily, # 30 tablet, 0 Refills, Maintenance, 02/21/22 14:00:00 EDT, [facility]/pharmacy #1972, Partial fill upon patient request if the prescription is for a schedule II opioid drug., 160, cm, 02/21/22 13:34:00 EDT, Height, 88.2,... Start Date: 02/21/22 Status: Ordered ProAir HFA 90 mcg/inh inhalation aerosol with adapter 2, puffs, Inhalation, Every 6 hours, PRN, # 1 each, Refills 11, Tot. Refills 11, Maintenance, 01/03/22 11:58:00 EDT, Route to Pharmacy Electronically, [id number], [facility]/pharmacy #1972, 160, cm, 01/03/22 11:03:00 EDT, Height, [...] 11:56:00 EDT, Aerosol, Route to Pharmacy Electronically, [id number], [facility], 160... Start Date: 01/03/22 Status: [...] Daily, # 30 capsule, 5 Refills, [facility] STORE 67331, 160.02, cm, 07/05/21 10:30:00EST, Height, 85, kg, [...] Active *Joseph Resendez, Care Coord inator, ICP [phone](Confirmed) Active 1Jantoinette Streeter [facility] [place] 2Case Edger Runner Parish Proctor ([facility]); Psychiatrist - Dr Konstantin Narvaez 3admitted [...]
--- OUTSIDE RECORDS SUMMARY | 2024-04-05 15:21 | XMS_ITS | Continuity of Care Document ---
Author Organization [facility] Address [address] [place] [address]- Care Team Providers Care Shipping Inspector Name Role Phone Mitch Lopez Primary Care Physician [phone] [facility] Date[facility]s): 06/04/21 - 07/04/21 [facility] [address] [place] [address]- Allergies, Adverse Reactions, Alerts Substance Reaction Severity [...] Patient Refuses 1Result Comment: Received at [facility] on [facility] [address] 2Admin Note: VIS given 3Admin Note: Administered at [facility] on [facility] [address] in [place]. 4Location History: [facility] pharmacy 5Result Comment: [06/27/2014] PT HAD AT [facility] 6Admin Note: VIS GIVEN VIS DATE [...] 1 each, 0 Refills, 04/14/21 19:19:00 EDT, [facility]/pharmacy #1972, INHALE 2 PUFFS EVERY 6 HOURS NEEDED FOR WHEEZING/SHORTNESS OF BREATH, 160.02, cm, 04/14/21 14... Start Date: 04/14/21 Status: Ordered Azithromycin 5 Day Dose Pack 250 mg oral tablet See Instructions, as directed on package labeling, # 6 tablet, 0 Refills, Maintenance, 05/05/21 9:14:00 EDT, [facility]/pharmacy #1972, Partial fill upon patient request if [...] 06/01/21 18:02:00 EDT, Route to Pharmacy Electronically, [facility]/pharmacy #1972, Partial fill u... Start Date: 06/01/21 [...] 06/28/21 16:04:00 EST, Route to Pharmacy Electronically, [id number], [facility]/pharmacy#1972, 160.02, cm, 06/08/21 8:42:00 EST, Height, 85... Start Date: 06/28/21 Stop Date: 12/25/21 Status: Ordered ProAir HFA 90 mcg/inh inhalation aerosol with adapter 2, puffs, Inhalation, Every 6 hours, PRN, # 1 each, Refills 5, Tot. Refills 5, Maintenance, 05/19/20 16:20:00 EDT, Route to Pharmacy Electronically, [id number], [facility]/pharmacy#1972, 160.02, cm, 04/28/20 13:40:00 EDT, Height, 9... [...] Refills, Maintenance, 02/04/21 9:28:00 EDT, [facility], 160.02, cm, 01/26/21 9:12:00 EDT, Height, 88.8, [...] Active *Joseph Resendez, Care Coord inator, ICP [phone](Confirmed) Active 1Jantoinette Streeter [facility] [place] 2Case Lime Spreader Parish Proctor ([facility]); Psychiatrist [...] BRCA1/2 negative,seen by genetics 6follow up at [facility] GI - Dr Richey. Multiple endoscopies, all normal. Other diagnosis is Non-ulcer dyspepsia Social History Social History Type Response Smoking Status Never smoker entered on: 02/07/14 Sex Female
--- OUTSIDE RECORDS SUMMARY | 2024-04-05 15:21 | XMS_ITS | Continuity of Care Document ---
Author Organization [facility] Address [address] [place] [address]- Care Team Providers Care Bottom Liner Name Role Phone Mitch Lopez Primary Care Physician [facility]s): 01/25/21 - 02/24/21 [facility] [address] [place], [place] [address] Allergies, Adverse Reactions, Alerts Substance Reaction [...] Given Patient Refuses 1Result Comment: Received at [facility] on [address] 2Admin Note: VIS given 3Admin Note: Administered at [facility] on [address] in [place]. 4Location History: [facility] pharmacy 5Result Comment: [06/27/2014] PT HAD AT [facility] 6Admin Note: VIS GIVEN VIS DATE 01/30/2012 [...] 0 Refills, Maintenance, 12/04/20 17:24:00 EDT, Tablet, [facility]/pharmacy #1972, Partial fill upon patient request if the prescription is for a schedule II opioid drug., 160.02, cm, 12/04/20 17:05:00 EDT, [facility]... Start Date: 12/04/20 Status: Ordered Colace sodium 100 mg oral capsule 100 mg, 1, capsule, By Mouth, 2 times a day, PRN, # 20 capsule, Refills 0, Tot. Refills 0, Maintenance, for constipation, 02/07/21 10:55:00 EDT, Route to Pharmacy Electronically, [facility]/pharmacy #1972, Partial fill upon patient request if [...] 0 Refills, Maintenance, 02/07/21 10:54:00 EDT, Gel, [facility]/pharmacy #1972, Partial fill upon patient request if [...] Gm, 0 Refills, Maintenance, 08/08/20 15:21:00 EST, [place], [facility], Partial fill upon patient request [...] tablet, 2 Refills, Maintenance, 10/07/20 9:05:00 EST, [facility]/pharmacy #1972, Partial fill upon patient request if the prescription is for a schedule II opioid drug., 160.02, cm, 10/07/20 8:15:00 EST, [place]... Start Date: 10/07/20 Status: Ordered naproxen 500 mg oral tablet 1 tablet = 500 mg, By Mouth, 2 times a day, # 28 tablet, 0 Refills, Maintenance, 02/04/21 16:29:00 EDT, Tablet, [facility]/pharmacy #1972, Partial fill upon patient request if the prescription is for a schedule II opioid drug., 160.02, cm, 02/04/21 15:57:00... Start Date: 02/04/21 Stop Date: 02/18/21 Status: Ordered POISE PADS POISE PADS, See Instructions, # 180 each, Refills 5, Tot. Refills 5, Maintenance, For stress incontinence (N93.3), Cystoscopy (Z98.890)., 02/27/19 14:16:26 EDT, Compound Start Date: 02/27/19 Status: Ordered ProAir HFA 90 mcg/inh inhalation aerosol with adapter 2, puffs, Inhalation, Every 6 hours, PRN, # 1 each, Refills 5, Tot. Refills 5, Maintenance, 05/19/20 16:20:00 EDT, Route to Pharmacy Electronically, [id number], [facility]/pharmacy#1972, 160.02, cm, 04/28/20 13:40:00 EDT, Height, 9... Start Date: 05/19/20 Stop Date: 11/15/20 Status: Ordered ProAir HFA 90 mcg/inh inhalation aerosol with adapter 2, puffs, Inhalation, Every 6 hours, PRN, # 1 each, Refills 5, Tot. Refills 5, Maintenance, 06/16/20 18:28:00 EST, Route to Pharmacy Electronically, [id number], [facility]/pharmacy#1972, 160.02, cm, 05/27/20 13:10:00 EDT, Height, 9... [...] 1 Refills, Soft Stop, 10/07/20 9:06:00 EST, [facility]/pharmacy #1972, Partial fill upon patient request if the prescription is for a schedule II opioid drug., 160.... Start Date: 10/07/20 Status: Ordered verapamil 180 mg oral capsule, extended release 1 capsule, By Mouth, Daily, # 30 capsule, 5 Refills, Maintenance, 02/04/21 9:28:00 EDT, [facility], 160.02, cm, 01/26/21 9:12:00 EDT, Height, 88.8, [...] Active Chronic migraine(Confirmed) Active OCD(Confirmed) Active *Lukisha Mal, Care Coord avril, ICP [phone](Confirmed) Active 1Jantoinette Streeter [facility] [place] 2Case Security Alarm Technician Parish Proctor ([facility]); Psychiatrist - [...] BRCA1/2 negative,seen by genetics 6follow up at [facility] GI - Dr Richey. Multiple endoscopies, all normal. Other diagnosis is Non-ulcer dyspepsia Social History Social History Type Response Smoking Status Never smoker entered on: 02/07/14 Sex Female
--- OUTSIDE RECORDS SUMMARY | 2024-04-05 15:21 | XMS_ITS | Continuity of Care Document ---
Author Organization [facility] ter Address [address] [place] [address]- Care Team Providers Care Garbage Stoker Name Role Phone Mitch Lopez Primary Care Physician [facility]): 08/02/19 - 08/12/[address] [address]- [facility] Attending Physician: Jana Mercado Admitting Physician: Jana [...] Administered at [facility] on [facility] [address] in [place]. 2Location History: [facility] pharmacy 3Result Comment: [06/27/2014] PT HAD AT [facility] 4Admin Note: VIS GIVEN VIS [...] Replace Required Details, Route to Pharmacy Electronically, [facility]... Start Date: 08/09/19 Status: Ordered oxyCODONE 5 mg oral tablet See Instructions, PRN, 1 tablet By Mouth Every 6 hours as needed for pain., # 28 tablet, Refills 0,Tot. Refills 0, Maintenance, Pain , Mild, 08/09/19 8:53:00 EST, Instructions Replace Required Details, Route to Pharmacy Electronically, [facility] Pharm... Start Date: 08/09/19 Status: Ordered POISE [...] 07/25/19 14:29:00 EST, Route to Pharmacy Electronically, [id number], [facility]/pharmacy#1972, 158, cm, 07/25/19 13:55:00 EST, Height, 91.3... [...] Chronic migraine(Confirmed) Active OCD(Confirmed) Active 1Jantoinette Streeter [facility] [place] [facility] [place] 2Case Emergency Services Dispatcher Parish Proctor ([facility]); Psychiatrist - Dr Konstantin Narvaez 3admitted [...]
--- OUTSIDE RECORDS SUMMARY | 2024-04-05 15:21 | XMS_ITS | Continuity of Care Document ---
Author Organization [facility] Adult [facility] Address [address] [place] [address]- Care Team Providers Care Fitness Plan Coordinator Name Role Phone Mitch Lopez Primary Care Physician [phone] [facility] Date(s): 12/04/20 - 01/03/21 [facility] [address] [place], [place] [address] Allergies, Adverse Reactions, Alerts Substance [...] Patient Refuses 1Result Comment: Received at [facility] on [address] 2Admin Note: VIS given 3Admin Note: Administered at [facility] on [address] in [place]. 4Location History: [facility] pharmacy 5Result [...] Refills, Maintenance, 12/04/20 17:24:00 EDT, Tablet, [facility]/pharmacy #1972, Partial fill upon [...] 42.5 Gm, 2 Refills, Maintenance, 09/08/20 14:57:00EST, [facility]/pharmacy #1972, 160.02, cm, 07/29/20 16:36:00 EST, Height, 92.3, kg, 07/24/20 13:24:00 EST, Dry Weight Start Date: 09/08/20 Status: Ordered Flonase 50 mcg/inh nasal spray 1 sprays, Nares, Both, 2 times a day, # 16 Gm, 0 Refills, Maintenance, 08/08/20 15:21:00 EST, Micro, [facility]/pharmacy #1972, Partial fill upon [...] 05/19/20 16:20:00 EDT, Route to Pharmacy Electronically, [id number], [facility], 160.02, cm, 04/28/20 13:40:00 EDT, Height, 9... Start Date: 05/19/20 Stop Date: 11/15/20 Status: Ordered ProAir HFA 90 mcg/inh inhalation aerosol with adapter 2, puffs, Inhalation, Every 6 hours, PRN, # 1 each, Refills 5, Tot. Refills 5, Maintenance, 06/16/20 18:28:00 EST, Route to Pharmacy Electronically, [id number], [facility]/pharmacy#1972, 160.02, cm, 05/27/20 13:10:00 EDT, Height, 9... [...] 1 Refills, Soft Stop, 10/07/20 9:06:00 EST, [facility]/pharmacy #1972, Partial fill [...] Active *Joseph Resendez, Care Coord inator, ICP [phone](Confirmed) Active 1Jantoinette Streeter [facility] [place] [facility] [place] 2Case Position Classifier Parish Proctor ([facility]); Psychiatrist - Dr Konstantin Narvaez 3admitted at [...]
--- OUTSIDE RECORDS SUMMARY | 2024-04-05 15:21 | XMS_ITS | Continuity of Care Document ---
Author Organization [facility] Adult Medicine Address [address] [place] [address]- Care Team Providers Care Installation Technician Name Role Phone Mitch Lopez Primary Care Physician [phone] [facility]counter [facility] Date(s): 11/16/22 - 12/16/22 [facility] Adult [facility] [address] [place] [address]- Allergies, Adverse Reactions, Alerts Substance Reaction Severity [...] Given Patient Refuses 1Admin Note: Administered at [facility] on [facility] in [place]. 2Location History: [facility] pharmacy 3Result Comment: [06/27/2014] PT HAD AT [facility] 4Admin Note: VIS GIVEN VIS DATE 01/30/2012 5Admin Note: flulaval vis given vis date 02/22/2011 6Admin Note: vis given 03/09/10 7Result Comment: Received at [facility] on [facility] 8Admin Note: VIS given [...] patch, 1 Refills, Maintenance, 07/07/22 18:54:00 EST, [facility] STORE 62897, 30, APPLY 1 PATCH TOPICALLY DAILY NEEDED [...] 10/31/22 16:24:00 EDT, Route to Pharmacy Electronically, [facility]/pharmacy #1972, Partial fill upon patien... Start Date: [...] 19:11:00 EDT, Aerosol, Route to Pharmacy Electronically, [id number], [facility], 161... Start Date: 11/24/22 Status: [...] Confirmed Active OCD Confirmed Active *Joseph Resendez, Litigation Associate, ICP [phone] Confirmed Active 1Jantoinette Streeter [facility] [place] 2Case Ribber Parish Proctor ([facility]); Psychiatrist - Dr Konstantin Narvaez 3admitted at adult partial hospitalization program (adult intensive short term out-pt psychiatric program). 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 BRCA1/2 negative,seen by genetics 6follow up at [facility] GI - Dr Richey. Multiple endoscopies, all normal. Other diagnosis is Non-ulcer dyspepsia Social History Social History Type Response Smoking Status Never smoker entered on: 02/07/14 Sex Female Patient Care team information Care Team Personnel Name: Mitch Lopez Position: [facility] PCO Associate Professional Member Role: PCP Address: Address: [address] [place] [address] [place] [address]- Care Team Related Persons Name: GABINO CASTANEDA Address: home [address] [place] [address] Name: JERROD BEAUCHAMP Address: [place], [place] Name: BRE MIRANDA Address: home [address] [place] [address] Name: ALEYDA BEE Address: home [address] [place] [address] Name: ALEYDA BEE Address: home [address] [place] [address] Name: ROMIE PUENTES Address: home [address] [place] [address]
--- OUTSIDE RECORDS SUMMARY | 2024-04-05 15:21 | XMS_ITS | Continuity of Care Document ---
Author Organization [facility] Adult Medicine Address [address] [place] [address]- Care Team Providers Care Layout Worker Name Role Phone Mitch Lopez Primary Care Physician [phone] [facility](s): 12/08/21 - 01/07/22 [facility] Adult Medicine [address] [place] [address]- Allergies, Adverse Reactions, Alerts Substance Reaction Severity [...] Given Patient Refuses 1Admin Note: Administered at [facility] on [facility] in [place]. 2Location History: [facility] pharmacy 3Result Comment: [06/27/2014] PT HAD AT [facility] 4Admin Note: VIS GIVEN VIS DATE 01/30/2012 5Admin Note: flulaval vis given vis date 02/22/2011 6Admin Note: vis given 03/09/10 7Result Comment: Received at [facility] on [facility] 8Admin Note: VIS given 9Admin Note: [...] a day, # 120 tablet, 2 Refills, [facility] STORE 26311, 160, cm, 11/22/21 10:23:00 EDT, Height, 88.2, [...] 01/03/22 11:58:00 EDT, Route to Pharmacy Electronically, [id number], [facility]/pharmacy #1972, 160, cm, 01/03/22 11:03:00 EDT, [...] 11:56:00 EDT, Aerosol, Route to Pharmacy Electronically, [id number], [facility], 160... Start Date: 01/03/22 Status: [...] # 30 capsule, 5 Refills, [facility], 160.02, cm, 07/05/21 10:30:00EST, Height, 85, kg, [...] Active Obese class II(Confirmed) Active OCD(Confirmed) Active *Joesph Resendez, Care Coord [facility] [phone](Confirmed) Active 1Jantoinette Streeter [facility] [place] 2Case Construction Skills Teacher Parsih rPoctor ([facility]); Psychiatrist - Dr Konstantin Narvaez 3admitted at adult partial hospitalization program (adult intensive short term out-pt psychiatric program). 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 BRCA1/2 negative,seen by genetics 6follow up at [facility] GI - Dr Desilets. Multiple endoscopies, all normal. Other diagnosis is Non-ulcer dyspepsia Social History Social History Type Response Smoking Status Never smoker entered on: 02/07/14 Sex Female
--- OUTSIDE RECORDS SUMMARY | 2024-04-05 15:21 | XMS_ITS | Continuity of Care Document ---
Author Organization [facility] Adult [facility] Address [address] [place] [address]- Care Team Providers Care Furniture Inspector Name Role Phone Mitch Lopez Primary Care Physician [facility]): 07/12/22 - 08/11/22 [facility] Adult [facility] [address] [place], [place] [address] Encounter Diagnosis Chronic back pain(Discharge Diagnosis) - [...] Darren rded influenza virus vaccine, inactivated 04/17/19 Draren rded influenza virus vaccine, inactivated 04/07/18 Darren [...] Patient Refuses 1Admin Note: Administered at [facility] on [facility] in [place]. 2Location History: [facility] pharmacy 3Result Comment: [06/27/2014] PT HAD AT [facility] 4Admin Note: VIS GIVEN VIS DATE 01/30/2012 5Admin Note: flulaval vis given vis date 02/22/2011 6Admin Note: vis given 03/09/10 7Result Comment: Received at [facility] on [facility] 8Admin Note: VIS [...] tablet, 0 Refills, Maintenance, 04/15/22 16:54:00 EDT, [facility]/pharmacy #1972, Partial fill upon patient request if [...] Refills, Maintenance, 07/07/22 18:54:00 EST, [facility], 30, APPLY 1 PATCH TOPICALLY DAILY NEEDED [...] tablet, 0 Refills, Maintenance, 06/19/22 12:17:00 EST, [facility] ST[facility]20, 160, cm, 06/07/22 9:36:00 EST, Height, 88.2, kg, 11/11/21 9:53:00 EDT,Dry Weight Start Date: 06/19/22 Status: Ordered Premarin 0.3 mg oral tablet 1 tablet = 0.3 mg, By Mouth, Daily, # 30 tablet, 11 Refills, Maintenance, 07/12/22 14:20:00 EST, [facility]/pharmacy #1972, Partial fill upon patient request if the prescription is for a schedule II opioid drug., 160, cm, 07/12/22 13:43:00 EST, Height, 88.2,... Start Date: 07/12/22 Status: Ordered Shingrix intramuscular injection = 0.5 mL, Intramuscular, Once, repeat dose in 2 to 6 months, # 2 each, 0 Refills, Soft Stop, 06/07/22 10:25:00 EST, Powder, [facility]/pharmacy #1972, Partial fill upon patient request if the prescription is for a schedule II opioid drug., 0.5 mL Intramuscul... Start Date: 06/07/22 Status: Ordered Shingrix intramuscular injection = 0.5 mL, Intramuscular, Once, repeat dose in 2 to 6 months, # 2 each, 0 Refills, Soft Stop, 03/15/22 14:32:00 EDT, Powder, [facility]/pharmacy #1972, Partial fill upon patient request if the prescription is for a schedule II opioid drug., 0.5 mL Intramuscul... Start Date: 03/15/22 Status: Ordered Spiriva Respimat 1.25 mcg/inh inhalation aerosol 2 puffs, Inhalation, Daily, # 1 each, 11 Refills, Maintenance, 06/07/22 10:22:00 EST, [facility]/pharmacy #1972, Partial fill upon patient request if the prescription is for a schedule II opioid drug., 160,cm, 06/07/22 9:36:00 EST, Height, 88.2, kg, ... Start Date: 06/07/22 Status: Ordered SUMAtriptan 50 mg oral tablet 1 tablet = 50 mg, By Mouth, Once, PRN Headache, may repeat dose once in 2 hours, # 18 tablet, 1 Refills, Soft Stop, 10/07/20 9:06:00 EST, [facility]/pharmacy #1972, Partial fill upon patient request if the prescription is for a schedule II opioid drug., 160.... Start Date: 10/07/20 Status: Ordered Symbicort 160mcg/4.5mcg Inhaler 2, puffs, Inhalation, 2 times a day, rinse mouth and throat after use, # 10.2 Gm, Refills 11, Tot. Refills 11, Maintenance, 06/07/22 10:22:00 EST, Aerosol, Route to Pharmacy Electronically, [id number], [facility]/pharmacy #1972, 160... Start Date: 06/07/22 Status: Ordered terazosin 2 mg oral capsule 1, capsule, By Mouth, Daily at bedtime, INSTR:CONTINUE TAKING TILL STONE EXPULSION OR TILL 4 WEEKS AND THEN DISCONTINUE., # 30 capsule, Refills 0, Maintenance, 03/28/22 14:40:00 EDT, Route to Pharmacy Electronically, [facility] STORE 47396, 160, cm, 03/15/22... Start Date: 03/28/22 Status: Ordered Tessalon Perles 100 mg oral capsule 1 capsule = 100 mg, By Mouth, 3 times a day, PRN Cough, # 21 capsule, 0 Refills, Maintenance, 06/17/22 17:34:00 EST, [facility]/pharmacy #1972, Partial fill upon patient request if [...] Refills, Maintenance, 06/16/22 9:46:00 EST, [facility], 160, cm, 06/07/22 9:36:00 EST, Height, 88.2, [...] Confirmed Active OCD Confirmed Active *Joseph Resendez, Systems Applications Programming Lead, ICP [phone] Confirmed Active 1Jantoinette Streeter [facility] Psychiat[facility] [place] 2Case Attending Radiologist Parish Proctor ([facility]); Psychiatrist - Dr Konstantin Narvaez 3admitted at adult partial hospitalization program (adult intensive short term out-pt psychiatric program). 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 BRCA1/2 negative,seen by genetics 6follow up at [facility] GI - Dr Richey. Multiple endoscopies, all normal. Other diagnosis is Non-ulcer dyspepsia Diagnosis Diagnosis Type Effective Dates Health Status Cl inical Service Informant Chronic back pain Discharge Diagnosis 06/22/19 Social History Social History Type Response Smoking Status Never smoker entered on: 02/07/14 Sex Female Note * Event Display: MRI Knee, Non- BH Authored Date: * Event Display: X-Ray Shoulder, Non- BH Authored Date: * Event Display: X-Ray Shoulder, Non- BH Authored Date: * Event Display: MRI Knee Authored Date: * Sadie Lozano: PERFORM Event Display: Radiology Results Scanned Authored Date: [id number] Patient Care team information Care Team Personnel Name: Mitch Lopez Position: S PCO Associate Professional Member Role: PCP Address: Address: [address] [place] [address] [place] [address]- Care Team Related Persons Name: GABINO CASTANEDA Address: home [address] [place] [address] Name: BRE MIRANDA Address: home [address] [place] [address] Name: ALEYDA BEE Address: home [address] [place] [address] Name: ALEYDA BEE Address: home [address] [place] [address] Name: ROMIE PUENTES Address: home [address] [place] [address]
--- OUTSIDE RECORDS SUMMARY | 2024-04-05 15:21 | XMS_ITS | Continuity of Care Document ---
Author Organization [facility] Address [address] [place] [address], [address] [place] [address]- Care Team Providers Care Accountancy Professor Name Role Phone Mitch Lopez Primary Care Physician [facility] 10/04/21 - 11/03/[address], [address] [place], [place] [address] Attending Physician: Admmalissa, [id number] Admitting Physician: [...] Given Patient Refuses 1Result Comment: Received at [facility] on [address] [facility] [address] 2Admin Note: VIS given 3Admin Note: Administered at [facility] on [facility] in [place]. 4Location History: [facility] pharmacy 5Result Comment: [06/27/2014] PT HAD AT [facility] 6Admin Note: VIS GIVEN VIS DATE 01/30/2012 [...] 10/14/21 18:29:00 EDT, Route to Pharmacy Electronically, [facility]/pharmacy #1972, Partial fill upon patient request if the prescription is for a sched... Start Date: 10/14/21 Stop Date: 10/19/21 Status: Ordered buPROPion 150 mg/24 hours (XL) oral tablet, extended release TAKE 1 TABLET BY MOUTH EVERY DAY Start Date: 05/05/21 Status: Ordered [facility] MELATONIN 3 MG TABLET [facility] MELATONIN 3 MG TABLET, 1, tablet, By Mouth, Daily at bedtime, # 30 tablet, 2 Refills, Maintenance, 02/17/21 19:34:00 EDT, 160.02, cm, 02/16/21 17:20:00 EDT, Height, 88.8, kg, 11/24/20 15:58:00 EDT, Dry Weight Start Date: 02/17/21 Status: Ordered Estrace Vaginal Cream 0.1 mg/g = 1 Gm, Vaginally, Every Monday and , # 42.5 Gm, 2 Refills, Maintenance, 09/08/20 14:57:00EST, [facility]/pharmacy #1972, 160.02, cm, 07/29/20 16:36:00 EST, Height, [...] A DAY, # 120 tablet, 2 Refills, [facility] 48811, 160.02, cm, 07/05/21 10:30:00 EST, Height, 85, kg, 03/11/21 17:07:00 EDT, Dry Weight Start Date: 08/22/21 Status: Ordered meloxicam 7.5 mg oral tablet 1 tablet, By Mouth, Daily, FOR ARTHRITIS PAIN. TAKE WITH FOOD, # 30 tablet, 1 Refills, [facility] 69675, 160.02, cm, 09/16/21 14:31:00 EST, Height, 85, [...] 09/07/21 11:12:00 EST, Route to Pharmacy Electronically, [id number], [facility]/pharmacy #1972, 160.02, cm, 09/07/21 10:18:00 EST, Height,... Start Date: 09/07/21 Stop Date: 09/02/22 Status: Ordered Spiriva Respimat 1.25 mcg/inh inhalation aerosol 2 PUFFS INHALATION ONCE A DAY 30 DAYS Start Date: 05/05/21 Status: Ordered Spiriva Respimat 1.25 mcg/inh inhalation aerosol 2 puffs, Inhalation, Daily, # 1 each, 11 Refills, Maintenance, 09/07/21 11:12:00 EST, [facility]/pharmacy #1972, Partial fill upon patient request if [...] 1 Refills, Soft Stop, 10/07/20 9:06:00 EST, [facility]/pharmacy #1972, Partial fill upon patient request if [...] 17:59:00 EST, Aerosol, Route to Pharmacy Electronically, [id number], [facility]/pharmacy #1972, 160... Start Date: 09/08/21 Status: Ordered [...] # 30 capsule, 5 Refills, [facility], 160.02, cm, 07/05/21 10:30:00EST, Height, 85, kg, [...] Active OCD(Confirmed) Active *Joseph Resendez, [facility], ICP [phone](Confirmed) Active Dyan Streeter [facility] [place] [facility] [place] 2Case Wide Area Network Administrator Parish Proctor ([facility]); Psychiatrist - [...] negative,seen by genetics 6follow up at [facility] GI - Dr Richey. Multiple endoscopies, all normal. Other diagnosis is Non-ulcer dyspepsia Social History Social History Type Response Smoking Status Never smoker entered on: 02/07/14 Sex Female
--- OUTSIDE RECORDS SUMMARY | 2024-04-05 15:21 | XMS_ITS | Continuity of Care Document ---
Author Organization [facility] Adult Medicine Address [address] [place] [address]- Care Team Providers Care Film Processor Name Role Phone Mitch Lopez Primary Care Physician [facility]): 08/05/20 - 09/04/20 [facility] Adult [facility] [address] [place] [address]- Attending Physician: Jorge Fregoso MD Admitting Physician: [...] Given Patient Refuses 1Result Comment: Received at [facility] on [address] 2Admin Note: VIS given 3Admin Note: Administered at [facility] on [address] in [place]. 4Location History: [facility] pharmacy 5Result Comment: [06/27/2014] PT HAD AT [facility] 6Admin Note: VIS GIVEN VIS [...] Gm, 0 Refills, Maintenance, 08/08/20 15:21:00 EST, [place], [facility], Partial fill upon patient request [...] 05/19/20 16:20:00 EDT, Route to Pharmacy Electronically, [id number], [facility]/pharmacy#1972, 160.02, cm, 04/28/20 13:40:00 EDT, Height, 9... Start Date: 05/19/20 Stop Date: 11/15/20 Status: Ordered ProAir HFA 90 mcg/inh inhalation aerosol with adapter 2, puffs, Inhalation, Every 6 hours, PRN, # 1 each, Refills 5, Tot. Refills 5, Maintenance, 06/16/20 18:28:00 EST, Route to Pharmacy Electronically, [id number], [facility]/pharmacy#1972, 160.02, cm, 05/27/20 13:10:00 EDT, Height, 9... [...] 30 capsule, 11 Refills, Maintenance, [facility], 160.02, cm, 10/11/19 15:24:00 EDT, Height, 85.91, [...] [facility] [phone](Confirmed) Active Dyan Streeter [facility] [place] [facility] [place] 2Case Whittling Room Operator Parish Proctor ([facility]); Psychiatrist - Dr Konstantin Narvaez 3admitted at [...]
--- OUTSIDE RECORDS SUMMARY | 2024-04-05 15:21 | XMS_ITS | Continuity of Care Document ---
Author Organization [facility] Address [address] [place] [address]- Care Team Providers Care Coil Tester Name Role Phone Mitch Lopez Primary Care Physician [facility]): 03/25/20 - 04/24/20 [facility] [address] [address]- [facility] Attending Physician: Jana Mercado Admitting Physician: [...] Administered at [facility] on [address] in [place]. 2Location History: [facility] 3Result Comment: [06/27/2014] PT HAD AT [...] 03/12/20 7:19:00 EDT, Route to Pharmacy Electronically, [id number], [facility]/pharmacy #1972, 160.02, cm, [...] 30 capsule, 11 Refills, Maintenance, [facility], 160.02, cm, 10/11/19 15:24:00 EDT, Height, 85.91, [...] Active *Joseph Resendez, Care Coord inator, ICP [phone](Confirmed) Active 1Jantoinette Streeter [facility] Psychiatry [place] 2Case Trimmer Loader Parish Esthela ([facility]); Psychiatrist - Dr [...] BRCA1/2 negative,seen by genetics 6follow up at [facility] GI - Dr Richey. Multiple endoscopies, all normal. Other diagnosis is Non-ulcer dyspepsia Social History Social History Type Response Smoking Status Never smoker entered on: 02/07/14 Sex Female
--- OUTSIDE RECORDS SUMMARY | 2024-04-05 15:21 | XMS_ITS | Continuity of Care Document ---
Author Organization [facility] Address [address] [place] [address]- Care Team Providers Care Junior Mechanical Engineer Name Role Phone Mitch Lopez Primary Care Physician [facility]23 - 01/20/23 [facility] [address], [place] [address] Attending Physician: Wu Taylor MD Referring Physician: [...] Given Patient Refuses 1Admin Note: Administered at [facility] on [facility] in [place]. 2Location History: [facility] 3Result Comment: [06/27/2014] PT HAD AT [facility] 4Admin Note: VIS GIVEN VIS DATE 01/30/2012 5Admin Note: flulaval vis given vis date 02/22/2011 6Admin Note: vis given 03/09/10 7Result Comment: Received at [facility] on [facility] 8Admin Note: VIS given 9Admin [...] patch, 1 Refills, Maintenance, 07/07/22 18:54:00 EST, [facility] STORE [id number], 30, APPLY 1 PATCH TOPICALLY DAILY NEEDED [...] 10/31/22 16:24:00 EDT, Route to Pharmacy Electronically, [facility]/pharmacy #1972, Partial fill upon patien... [...] tablet, 11 Refills, Maintenance, 07/12/22 14:20:00 EST, [facility]/pharmacy #1972, Partial fill upon patient request if the prescription is for a schedule II opioid drug., 160, cm, 07/12/22 13:43:00 EST, Height, 88.2,... Start Date: 07/12/22 Status: Ordered Spiriva Respimat 1.25 mcg/inh inhalation aerosol 2 puffs, Inhalation, Daily, # 1 each, 11 Refills, Maintenance, 11/21/22 12:15:00 EDT, [facility]/pharmacy #1972, Partial fill upon patient [...] 19:11:00 EDT, Aerosol, Route to Pharmacy Electronically, [id number], [facility]/pharmacy #1972, 161... Start Date: [...] Confirmed Active OCD Confirmed Active *Joseph Resendez, Body Stylist, ICP [phone] Confirmed Active 1Jantoinette Streeter [facility] 2Case Hyperion Developer Bhumi Esthela ([facility]); Psychiatrist - Dr Konstantin [...] oldest [Reference Range]: 1 Height 161 cm (01/13/23 9:09 AM) Oxygen Saturation [94-100 %] 97 % (01/13/23 9:09 AM) Pulse Rate [55-90 bpm] 80 bpm (01/13/23 9:09 AM) Blood Pressure [90-138/55-84 mm Hg] 150/ 88mm Hg *H* (01/13/23 9:09 AM) Respiratory Rate [16-30 br/min] 20 br/mi n (01/13/23 9:09 AM) Temperature [96.8-100.4 DegF] 97.6 DegF (01/13/23 9:09 AM) Mode of Delivery (Oxygen) Room air (01/13/23 9:09 AM) Blood pressure sites Arm, left (01/13/23 9:09 AM) Temperature Route Temporal (01/13/23 9:09 AM) Social History Social History Type Response Smoking Status Never smoker entered on: 02/07/14 Sex Female Note * Richmond Alonzo: PERFORM, SIGN, VERIFY Event Display: Patient Education/Instruction Authored Date: [facility] *[facility] Clinical Summary Name BHUMI BEAUCHAMP Age 62 Years 1960 PCP Mitch Lopez PCP Visit Date 01/13/2023 09:01:00 Additional Instructions: Scheduled Appointments?? Future Appointments ?*[facility] ?[place],??[place],??[address] ?Phone:??--?Fax:??-- ?Appt. Date:??01/13/2023?4:00 PM ?Scheduled Provider:??Flakito GARCIA, Sherie Crowley Follow-Up Instructions ?? Diagnosis Medications: Please continue [...] tab(s) Oral twice a day as needed as needed for anxiety. Refills: 2. Next Dose: Lidocaine Topical (lidocaine 5% topical film) 1 patch(es) Topically Daily as needed NEEDED FOR PAIN REMOVE AFTER 12 HOURS. Refills: 1. Next Dose: Meloxicam (meloxicam 15 mg oral tablet) 1 tab(s) Oral Daily for 10 Days. for pain take with food please. Refills: 0. Next Dose: Montelukast (montelukast 10 mg oral tablet) 1 tab(s) Oral Daily at Bedtime. TAKE 1 TABLET BY MOUTH EVERY DAY IN THE EVENING. Refills: 11. Next Dose: Oxycodone (oxyCODONE 5 mg oral capsule) 1 capsule By Mouth Every 4-6 hours; as needed as needed forpain. Next Dose: Tiotropium (Spiriva Respimat 1.25 mcg/inh inhalation aerosol) 2 puff(s) Inhalation Daily. Refills: 11. Next Dose: Tramadol (traMADol 50 mg oral tablet) 1 tab(s) Oral every 4 hours as needed as needed for pain. Next Dose: Tramadol (traMADol 50 mg oral tablet) 1 tab(s) Oral twice a day. for severe pain due to rotator cuff tear. may obtain fewer. Refills: 0. Next Dose: Verapamil (verapamil 180 mg oral capsule, extended release) 1 capsule Oral Daily. Refills: 5. Next Dose: Allergy Info:?? Bactrim; Compazine; Motrin; sulfa drugs Medications Given This Visit Future Orders ?No future orders Vital Signs Height 161 cm Weight BMI Blood Pressure 150 mm Hg/88 mm Hg Temperature 97.6 DegF Pulse Rate 80 bpm Respiratory Rate 20 br/min 02 Sat Mode of Delivery 97 %/Room air You can now view a summary of your hospital visit from the comfort of your home through a free online portal called Elimi. Elimi is a website that allows you to securely view your medical information including discharge summary, medications and follow-up visits. ??You can alsosend a secure electronic message to your doctor???s office to request appointments, renew medications or just ask a question. You can enroll at [email or web address] or register during your next office visit. [...] primary care provider, you may find a [facility] provider by calling [facility] at [phone]. For information about the plan of care including goals and instructions for your diagnosis, please see the patient education orders section of this document. Patient Education Materials?? The content of this educational material or handout may have been modified, supplemented, or adapted from its original content and format to support your individualized medical care. * Richmond Alonzo: PERFORM, SIGN, VERIFY Event Display: Patient Education/Instruction Authored Date: [id number] [facility] *[facility] Clinical Summary Name BHUMI BEAUCHAMP Age 62 Years 1960 PCP Lyn CASAREZ, Mitch PCP Visit Date 01/13/2023 09:01:00 Additional Instructions: Scheduled Appointments?? Future Appointments ?*[facility] ?[place],??[place],??[address] ?Phone:??--?Fax:??-- ?Appt. Date:??01/13/2023?4:00 PM ?Scheduled Provider:??Flakito GARCIA, Sherie Crowley Follow-Up Instructions ?? Diagnosis Medications: Please continue [...] tab(s) Oral twice a day as needed as needed for anxiety. Refills: 2. Next Dose: Lidocaine Topical (lidocaine 5% topical film) 1 patch(es) Topically Daily as needed NEEDED FOR PAIN REMOVE AFTER 12 HOURS. Refills: 1. Next Dose: Meloxicam (meloxicam 15 mg oral tablet) 1 tab(s) Oral Daily for 10 Days. for pain take with food please. Refills: 0. Next Dose: Montelukast (montelukast 10 mg oral tablet) 1 tab(s) Oral Daily at Bedtime. TAKE 1 TABLET BY MOUTH EVERY DAY IN THE EVENING. Refills: 11. Next Dose: Oxycodone (oxyCODONE 5 mg oral capsule) 1 capsule By Mouth Every 4-6 hours; as needed as needed forpain. Next Dose: Tiotropium (Spiriva Respimat 1.25 mcg/inh inhalation aerosol) 2 puff(s) Inhalation Daily. Refills: 11. Next Dose: Tramadol (traMADol 50 mg oral tablet) 1 tab(s) Oral every 4 hours as needed as needed for pain. Next Dose: Tramadol (traMADol 50 mg oral tablet) 1 tab(s) Oral twice a day. for severe pain due to rotator cuff tear. may obtain fewer. Refills: 0. Next Dose: Verapamil (verapamil 180 mg oral capsule, extended release) 1 capsule Oral Daily. Refills: 5. Next Dose: Allergy Info:?? Bactrim; Compazine; Motrin; sulfa drugs Medications Given This Visit Future Orders ?No future orders Vital Signs Height 161 cm Weight BMI Blood Pressure 150 mm Hg/88 mm Hg Temperature 97.6 DegF Pulse Rate 80 bpm Respiratory Rate 20 br/min 02 Sat Mode of Delivery 97 %/Room air You can now view a summary of your hospital visit from the comfort of your home through a free online portal called Elimi. Elimi is a website that allows you to securely view your medical information including discharge summary, medications and follow-up visits. ??You can alsosend a secure electronic message to your doctor???s office to request appointments, renew medications or just ask a question. You can enroll at [email or web address] or register during your next office visit. [...] primary care provider, you may find a [facility] provider by calling [facility] at [phone]. For information about the plan of care [...] Associate Professional Member Role: PCP Address: Address: [address] [place] [address] [place] [address]- Care Team Related Persons Name: GABINO CASTANEDA Address: home [address] [place] [address] Name: JERROD BEAUCHAMP Address: [place], [place] Name: BRE MIRANDA Address: home [address] [place] [address] Name: ALEYDA BEE Address: [address] Name: ALEYDA BEE Address: [address] Name: ROMIE PUENTES Address: home [address] [place] [address]
--- OUTSIDE RECORDS SUMMARY | 2024-04-05 15:21 | XMS_ITS | Continuity of Care Document ---
Author Organization [facility] Address [address] [place] [address]- Care Team Providers Care Field Service Engineer Name Role Phone Mitch Lopez Primary Care Physician [facility] 11/27/20 - 12/27/20 [facility] [address] [place] [address]- Allergies, Adverse Reactions, Alerts Substance Reaction Severity [...] Patient Refuses 1Result Comment: Received at [facility] on [address] 2Admin Note: VIS given 3Admin Note: Administered at [facility] on [address] in [place]. 4Location History: [facility] 5Result Comment: [06/27/2014] PT HAD AT [facility] 6Admin Note: VIS GIVEN VIS DATE [...] Refills, Maintenance, 12/04/20 17:24:00 EDT, Tablet, [facility]/pharmacy #1972, Partial fill upon patient [...] Gm, 2 Refills, Maintenance, 09/08/20 14:57:00EST, [facility]/pharmacy #1972, 160.02, cm, 07/29/20 16:36:00 EST, Height, 92.3, kg, 07/24/20 13:24:00 EST, Dry Weight Start Date: 09/08/20 Status: Ordered Flonase 50 mcg/inh nasal spray 1 sprays, Nares, Both, 2 times a day, # 16 Gm, 0 Refills, Maintenance, 08/08/20 15:21:00 EST, [place], [facility], Partial fill upon patient request [...] tablet, 2 Refills, Maintenance, 11/06/20 17:02:00 EDT, [facility]/pharmacy #1972, Partial fill upon patient [...] 05/19/20 16:20:00 EDT, Route to Pharmacy Electronically, [id number], [facility], 160.02, cm, 04/28/20 13:40:00 EDT, Height, 9... Start Date: 05/19/20 Stop Date: 11/15/20 Status: Ordered ProAir HFA 90 mcg/inh inhalation aerosol with adapter 2, puffs, Inhalation, Every 6 hours, PRN, # 1 each, Refills 5, Tot. Refills 5, Maintenance, 06/16/20 18:28:00 EST, Route to Pharmacy Electronically, [id number], [facility]/pharmacy#1972, 160.02, cm, 05/27/20 13:10:00 EDT, [...] Refills, Soft Stop, 10/07/20 9:06:00 EST, [facility]/pharmacy #1972, Partial fill upon patient request if the prescription is for a schedule II opioid drug., 160.... Start Date: 10/07/20 Status: Ordered verapamil 180 mg oral capsule, extended release 1 capsule = 180 mg, By Mouth, Daily, dose increase to 180mg qd 07/27/20, # 30 capsule, 5 Refills, Maintenance, 07/27/20 16:51:00 EST, [facility]/pharmacy #1972, Partial fill upon patient [...] Active *Joseph Resendez, Care Coord inadavid, ICP [phone](Confirmed) Active 1Jantoinette Streeter [facility] [place] [facility] [place] 2Case Customer Training Specialist Parish Proctor ([facility]); Psychiatrist - Dr Konstantin [...] BRCA1/2 negative,seen by genetics 6follow up at [facility] - Dr Richey. Multiple endoscopies, all normal. Other diagnosis is Non-ulcer dyspepsia Social History Social History Type Response Smoking Status Never smoker entered on: 02/07/14 Sex Female
--- OUTSIDE RECORDS SUMMARY | 2024-04-05 15:21 | XMS_ITS | Continuity of Care Document ---
Author Organization [facility] Address [address] [place] [address]- Care Team Providers Care Ux Information Architect Name Role Phone Mitch Lopez Primary Care Physician Encounter [facility] Date(s): 09/19/19 - 11/09/19 [facility] [address] [place] [address] [facility] Attending Physician: Deepak Daniels MD Admitting Physician: Deepak Daniels MD Referring Physician: Deysi Gomez DO Allergies, Adverse [...] 1Admin Note: Administered at [facility] on [address] in [place]. 2[facility] 3Result Comment: [06/27/2014] PT HAD AT [facility] 4Admin Note: VIS GIVEN VIS DATE [...] 07/25/19 14:29:00 EST, Route to Pharmacy Electronically, [id number], [facility]/pharmacy#1972, 158, cm, 07/25/19 13:55:00 EST, Height, 91.3... [...] 11/22/19 12:00:00 EDT, 10/11/19 16:15:00 EDT, Tablet, [facility]/pharmacy... Start Date: 10/11/19 Stop Date: 11/22/19 Status: Ordered verapamil 100 mg oral capsule, extended release See Instructions, 1 CAPSULE BY MOUTH DAILY AT BEDTIME,X90 DAYS, # 30 capsule, 11 Refills, Maintenance, [facility], 160.02, cm, 10/11/19 15:24:00 EDT, Height, 85.91, [...] Chronic migraine(Confirmed) Active OCD(Confirmed) Active Dyan Streeter [facility] 2Case Ui Software Developer Parish Esthela ([facility]); Psychiatrist - Dr Konstantin Narvaez [...]
--- OUTSIDE RECORDS SUMMARY | 2024-04-05 15:21 | XMS_ITS | Continuity of Care Document ---
Author Organization [facility] Address [address] [place] [address]- Care Team Providers Care Sales Product Specialist Name Role Phone Mitch Lopez Primary Care Physician [facility] 08[facility]19 - 08/19/19 [facility] [address] [place] [address]- [facility] Encounter Diagnosis Chronic back pain(Discharge Diagnosis) - [...] Patient Refuses 1Admin Note: Administered at [facility] on [address] in [place]. 2Location History: [facility] 3Result Comment: [06/27/2014] PT [...] Replace Required Details, Route to Pharmacy Electronically, [facility]... Start Date: 08/09/19 Status: Ordered oxyCODONE 5 mg oral tablet See Instructions, PRN, 1 tablet By Mouth Every 6 hours as needed for pain., # 28 tablet, Refills 0,Tot. Refills 0, Maintenance, Pain , Mild, 08/09/19 8:53:00 EST, Instructions Replace Required Details, Route to Pharmacy Electronically, [facility] Pharm... Start Date: 08/09/19 Status: Ordered POISE [...] 07/25/19 14:29:00 EST, Route to Pharmacy Electronically, [id number], [facility]#1972, 158, cm, 07/25/19 13:55:00 EST, Height, [...] Chronic migraine(Confirmed) Active OCD(Confirmed) Active 1Jantoinette Streeter [facility] [place] 2Case Special Effects Specialist Parish Proctor ([facility]); Psychiatrist - Dr Konstantin Narvaez 3admitted [...]
--- OUTSIDE RECORDS SUMMARY | 2024-04-05 15:22 | XMS_ITS | Continuity of Care Document ---
Author Organization [facility] Address [address] [place] [address]- Care Team Providers Care Engineering Project Designer Name Role Phone Mitch Lopez Primary Care Physician [facility]): 11[facility]04[facility]19 - 11/11/19 [facility] [address] [place] [address]- [facility] Attending Physician: Christian SMITH, Dex T Allergies, Adverse Reactions, Alerts Substance Reaction Severity [...] Administered at [facility] on [address] in [place]. 2Location History: [facility] pharmacy 3Result [...] 07/25/19 14:29:00 EST, Route to Pharmacy Electronically, [id number], [facility]/pharmacy#1972, 158, cm, 07/25/19 13:55:00 EST, [...] 30 capsule, 11 Refills, Maintenance, [facility], 160.02, cm, 10/11/19 15:24:00 EDT, Height, 85.91, [...] Chronic migraine(Confirmed) Active OCD(Confirmed) Active Dyan Streeter [facility] [place] 2Case Machine Iii Coremaker Parish Proctor ([facility]); Psychiatrist - Dr Konstantin Narvaez 3admitted [...]
--- OUTSIDE RECORDS SUMMARY | 2024-04-05 15:22 | XMS_ITS | Continuity of Care Document ---
Author Organization [facility] Address [address] [address]- Care Team Providers Care Electrical Engineering Draftsperson Name Role Phone Mitch Lopze Primary Care Physician Encounter [facility] Date(s): 12/27/23 - 03/16/24 [facility] [address] [address] Attending Physician: Christopher Pressley MD Admitting Physician: Christopher Pressley MD Referring Physician: Mitch Lopez Allergies, Adverse [...] 07/18/06 Given 1Admin Note: Administered at [facility] on [facility] in [place]. 2Location History: [facility] pharmacy 3Result Comment: [06/27/2014] PT HAD AT [facility] 4Admin Note: VIS GIVEN VIS DATE 01/30/2012 5Admin Note: flulaval vis given vis date 02/22/2011 6Admin Note: vis given 03/09/10 7Result Comment: Received at [facility] on [facility] 8Admin Note: VIS given 9Admin Note: [...] 3 Refills, Maintenance, 08/28/23 14:07:00 EST, [facility]/pharmacy #1972, 25, 1 application Topically 4 times a day,PRN: NEEDED,Instr:MODERATE PAIN., 161, cm, 08/16/23 11:00:... Start Date: 08/28/23 Status: Ordered hydrOXYzine hydrochloride 25 mg oral tablet 1 tablet, By Mouth, 2 times a day, PRN NEEDED FOR ANXIETY, # 180 tablet, 0 Refills, Maintenance,01/19/24 9:05:00 EDT, [facility] STORE 94480, 161, cm, 01/16/24 16:04:00 EDT, Height, 82.1, [...] 0 Refills, Maintenance, 03/31/23 18:55:00 EDT, [facility] STORE 75856, 161, cm, 03/29/23 14:07:00 EDT, Height, 85, [...] Refills, Maintenance, 02/13/24 9:40:00 EDT, [facility], 161, cm, 01/16/24 16:04:00 EDT, Height, 82.1, [...] Confirmed Active OCD Confirmed Active *Joseph Resendez, Lead Custodian, ICP [phone] Confirmed Active 1Jantoinette Streeter [facility] [place] [facility] [place] 2Case Commutator Tester Parish Proctor ([facility]); Psychiatrist - [...] Professional Member Role: PCP Address: Address: [address] [place] [address] [place] [address]- Care Team Related Persons Name: GABINO CASTANEDA Address: home [address] [place] [address] Name: JERROD BEAUCHAMP Address: [place], [place] Name: BRE MIRANDA Address: home [address] [place] [address] Name: ALEYDA BEE Address: [address] [address] Name: ALEYDA BEE Address: [address] [address] Name: ROMIE PUENTES Address: home [address] [place] [address]
--- OUTSIDE RECORDS SUMMARY | 2024-04-05 15:22 | XMS_ITS | Continuity of Care Document ---
Author Organization [facility] Address [address] [place] [address]- Care Team Providers Care Physical Laboratory Assistant Name Role Phone Mitch Lopez Primary Care Physician [phone] [facility]counter [facility] 09[facility]21 - 10/02/21 [facility] [address] [place], [place] [address] Allergies, Adverse Reactions, Alerts Substance Reaction Severity [...] Received at [facility] on [address] 2Admin Note: VIS given 3Admin Note: Administered at [facility] on [facility] in [place]. 4Location History: [facility] 5Result Comment: [06/27/2014] PT HAD AT [facility] 6Admin Note: VIS GIVEN VIS DATE 01/30/2012 [...] # 120 tablet, 2 Refills, [facility], 160.02, cm, 07/05/21 10:30:00 EST, Height, 85, kg, 03/11/21 17:07:00 EDT, Dry Weight Start Date: 08/22/21 Status: Ordered meloxicam 7.5 mg oral tablet 1 tablet, By Mouth, Daily, FOR ARTHRITIS PAIN. TAKE WITH FOOD, # 30 tablet, 1 Refills, [facility], 160.02, cm, 09/16/21 14:31:00 EST, Height, 85, [...] 09/07/21 11:12:00 EST, Route to Pharmacy Electronically, [id number], [facility]/pharmacy #1972, 160.02, cm, 09/07/21 10:18:00 EST, Height,... Start Date: 09/07/21 Stop Date: 09/02/22 Status: Ordered Spiriva Respimat 1.25 mcg/inh inhalation aerosol 2 PUFFS INHALATION ONCE A DAY 30 DAYS Start Date: 05/05/21 Status: Ordered Spiriva Respimat 1.25 mcg/inh inhalation aerosol 2 puffs, Inhalation, Daily, # 1 each, 11 Refills, Maintenance, 09/07/21 11:12:00 EST, [facility]/pharmacy #1972, Partial fill [...] 1 Refills, Soft Stop, 10/07/20 9:06:00 EST, [facility]/pharmacy #1972, Partial fill [...] 17:59:00 EST, Aerosol, Route to Pharmacy Electronically, [id number], [facility]/pharmacy #1972, 160... Start Date: 09/08/21 Status: [...] # 30 capsule, 5 Refills, [facility], 160.02, cm, 07/05/21 10:30:00EST, Height, 85, kg, [...] Active OCD(Confirmed) Active *Joseph Resendez, [facility], ICP [phone](Confirmed) Active 1Jantoinette Streeter [facility] [place] 2Case Unit Operator Parish Proctor ([facility]); Psychiatrist - Dr Konstantin Narvaez [...]
--- OUTSIDE RECORDS SUMMARY | 2024-04-05 15:22 | XMS_ITS | Continuity of Care Document ---
Author Organization [facility] Adult Medicine Address [address] [place] [address]- Care Team Providers Care Kitchen Worker Name Role Phone Mitch Lopez Primary Care Physician [facility] 12[facility]07[facility]21 - 01/06/22 [facility] [address] [place] [address]- Allergies, Adverse Reactions, Alerts Substance Reaction Severity [...] Given Patient Refuses 1Admin Note: Administered at [facility] on [facility] in [place]. 2Location History: [facility] pharmacy 3Result Comment: [06/27/2014] PT HAD AT [facility] 4Admin Note: VIS GIVEN VIS DATE 01/30/2012 5Admin Note: flulaval vis given vis date 02/22/2011 6Admin Note: vis given 03/09/10 7Result Comment: Received at [facility] on [facility] 8Admin Note: VIS given 9Admin Note: [...] a day, # 120 tablet, 2 Refills, [facility] STORE 26846, 160, cm, 11/22/21 10:23:00 EDT, Height, 88.2, [...] 01/03/22 11:58:00 EDT, Route to Pharmacy Electronically, [id number], [facility]/pharmacy #1972, 160, cm, 01/03/22 11:03:00 EDT, [...] 11:56:00 EDT, Aerosol, Route to Pharmacy Electronically, [id number], [facility], 160... Start Date: 01/03/22 Status: Ordered Tessalon Perles 100 mg oral capsule 1 capsule = 100 mg, By Mouth, 3 times a day, PRN Cough, # 20 capsule, 0 Refills, Maintenance, 09/16/21 15:25:00 EST, [facility]/pharmacy #1972, Partial fill upon patient request if the prescription is for aschedule II opioid drug., 160.02, cm, 09/16/21 14:3... Start Date: 09/16/21 Status: Ordered verapamil 180 mg oral capsule, extended release 1 capsule, By Mouth, Daily, # 30 capsule, 5 Refills, [facility], 160.02, cm, 07/05/21 10:30:00EST, Height, 85, kg, [...] Active OCD(Confirmed) Active *Joseph Resendez, [facility], [facility] [phone](Confirmed) Active 1Jantoinette Streeter [facility] Psychiatry [place] 2Case Cd Technician Parish Proctor ([facility]); Psychiatrist - Dr Konstantin Narvaez 3admitted at adult partial hospitalization program (adult intensive short term out-pt psychiatric program). 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 BRCA1/2 negative,seen by genetics 6follow up at [facility] GI - Dr Desilets. Multiple endoscopies, all normal. Other diagnosis is Non-ulcer dyspepsia Social History Social History Type Response Smoking Status Never smoker entered on: 02/07/14 Sex Female
--- OUTSIDE RECORDS SUMMARY | 2024-04-05 15:22 | XMS_ITS | Continuity of Care Document ---
Author Organization [facility]3] Adult Medicine Address [address] [place] [address]- Care Team Providers Care Surveyor Helper Rod Name Role Phone Mitch Lopez Primary Care Physician [facility] 11/16/22 - 12/16/22 [facility] Adult Medicine [address] [place] [address]- Allergies, Adverse Reactions, Alerts Substance Reaction Severity Status Motrin Breathing problem GI upset Active Bactrim bruising Active sulfa drugs Breathing problem Active Compazine [...] Note: Administered at [facility] on [facility] in [place]. 2Location [facility] 3Result Comment: [06/27/2014] PT HAD AT [facility] 4Admin Note: VIS GIVEN VIS DATE 01/30/2012 5Admin Note: flulaval vis given vis date 02/22/2011 6Admin Note: vis given 03/09/10 7Result Comment: Received at [facility] on [facility] 8Admin Note: VIS given [...] patch, 1 Refills, Maintenance, 07/07/22 18:54:00 EST, [facility] STORE 45274, 30, APPLY 1 PATCH TOPICALLY DAILY NEEDED [...] 10/31/22 16:24:00 EDT, Route to Pharmacy Electronically, [facility]/pharmacy #1972, Partial fill upon patien... Start Date: [...] 19:11:00 EDT, Aerosol, Route to Pharmacy Electronically, [id number], [facility], 161... Start Date: 11/24/22 Status: [...] Confirmed Active OCD Confirmed Active *Joseph Resendez, Aboriginal Education Worker Coordinator, ICP [phone] Confirmed Active 1Jantoinette Streeter [facility] Psychiatry [place] 2Case Social Services Specialist [place] Proctor ([facility]); Psychiatrist - [...] Care Team Personnel Name: Mitch Lopez Position: [facility] PCO Associate Professional Member Role: PCP Address: Address: [address] [place] [address] [place] [address]- Care Team Related Persons Name: GABINO CASTANEDA Address: home [address] [place] [address] Name: JERROD BEAUCHAMP Address: [place], [place] Name: BRE MIRANDA Address: home [address] [place] [address] Name: ALEYDA BEE Address: home [address] [place] [id number] Name: ALEYDA BEE Address: home [address] [place] [address] Name: ROMIE PUENTES Address: home [address] [place] [address]
--- OUTSIDE RECORDS SUMMARY | 2024-04-05 15:22 | XMS_ITS | Continuity of Care Document ---
Author Organization [facility] Adult Medicine Address [address] [place] [address]- Care Team Providers Care Spring Crater Name Role Phone Mitch oLpez Primary Care Physician [facility]s): 04/17/20 - 05/17/20 [facility] Adult Medicine [address] [place] [address]- [facility] Allergies, Adverse Reactions, Alerts Substance Reaction Severity [...] Administered at [facility] on [facility] in [place]. 2Location History: [facility] 3Result Comment: [06/27/2014] PT HAD AT [facility] 4Admin Note: VIS GIVEN VIS DATE 01/30/2012 [...] Gm, 2 Refills, Maintenance, 03/04/20 12:12:00 EDT, [facility]/pharmacy #1972, 160.02, cm, 03/04/20 11:50:00 [...] 03/12/20 7:19:00 EDT, Route to Pharmacy Electronically, [id number], [facility]/pharmacy #1972, 160.02, cm, 03/04/20 11:50:00 [...] DAYS, # 30 capsule, 11 Refills, Maintenance, [facility] STORE 22223, 160.02, cm, 10/11/19 15:24:00 EDT, Height, 85.91, [...] Active *Joseph Resendez, Care Coord inator, ICP [phone](Confirmed) Active 1Jantoinette Streeter [facility] 2Case Press Reader Parish Proctor ([facility]); Psychiatrist [...] BRCA1/2 negative,seen by genetics 6follow up at [facility] GI - Dr Richey. Multiple endoscopies, all normal. Other diagnosis is Non-ulcer dyspepsia Social History Social History Type Response Smoking Status Never smoker entered on: 02/07/14 Sex Female
--- OUTSIDE RECORDS SUMMARY | 2024-04-05 15:22 | XMS_ITS | Continuity of Care Document ---
Author Organization [facility] Address [address] [place] [address]- Care Team Providers Care Student Assistance Counselor Name Role Phone Mitch Lopez Primary Care Physician Encounter [facility] Date(s): 10/04/23 - 11/08/[address] [address] Attending Physician: Mitch Lopez Admitting Physician: Mitch Lopez Referring Physician: Joselito Causey Allergies, Adverse Reactions, Alerts Substance Reaction Severity [...] 18 07/18/06 Given 1Admin Note: Administered at [facility] on [facility] in [place]. 2Location History: [facility] pharmacy 3Result Comment: [06/27/2014] PT HAD AT [facility] 4Admin Note: VIS GIVEN VIS DATE 01/30/2012 5Admin Note: flulaval vis given vis date 02/22/2011 6Admin Note: vis given 03/09/10 7Result Comment: Received at [facility] on [facility] 8Admin Note: VIS given 9Admin Note: [...] opioid drug. Start Date: 09/14/22 Status: Ordered [facility] MELATONIN 3 [...] tablet, 2 Refills, Maintenance, 10/17/23 11:01:00 EDT, [facility] STORE 90999, 161, cm, 09/29/23 11:18:00 EST, Height, 82.1, [...] tablet, 0 Refills, Maintenance, 03/31/23 18:55:00 EDT, [facility] STORE 75849, 161, cm, 03/29/23 14:07:00 EDT, Height, 85, [...] Confirmed Active OCD Confirmed Active *Joseph Resendez, Photographer'S Model, ICP [phone] Confirmed Active 1Jantoinette Streeter [facility] Psychiatry [place] 2Case Professor Of [place] Parish Proctor ([facility] [...] BRCA1/2 negative,seen by genetics 6follow up at [facility] GI - Dr Richey. Multiple endoscopies, all normal. Other diagnosis is Non-ulcer dyspepsia Social History Social History Type Response Smoking Status Never smoker entered on: 02/07/14 Sex Female Patient Care team information Care Team Personnel Name: Mitch Lopez Position: S PCO Associate Professional Member Role: PCP Address: Address: [address] [place] [address] [place] [address]- Care Team Related Persons Name: GABINO CASTANEDA Address: home [address] [place] [address] Name: JERROD BEAUCHAMP Address: home [place], [place] Name: BRE MIRANDA Address: [address] [place] [address] Name: ALEYDA BEE Address: [address] [place] [address] Name: ALEYDA BEE Address: home [address] [place] [address] Name: ROMIE PUENTES Address: home [address] [place] [address]
--- OUTSIDE RECORDS SUMMARY | 2024-04-05 15:22 | XMS_ITS | Continuity of Care Document ---
Author Organization [facility] Adult Medicine Address [address] [place] [address]- Care Team Providers Care Clerk Rating Name Role Phone Mitch Lopez Primary Care Physician [phone] [facility] Date[facility]s): 06/17/21 - 07/17/21 [facility] Adult Medicine [address] [place] [address]- Allergies, Adverse Reactions, Alerts Substance Reaction Severity Status sulfa drugs Active Compazine unknown Active Bactrim bruising Active Immunizations Given and Recorded Vaccine Date Status Refusal Reason SARS-CoV-2 (COVID-19) mRNA-1273 vaccine 10/30/20 R ecorded SARS-CoV-2 (COVID-19) mRNA-1273 vaccine 10/02/20 R ecorded Influenza Virus Vaccine (oldterm) 1 04/29/20 Recor ded Influenza Virus Vaccine (oldterm) 2 05/03/06 Given influenza virus vaccine, inactivated 3 04/05/18 Gi [place] influenza virus vaccine, inactivated 4 05/26/16 Re [...] Given Patient Refuses 1Result Comment: Received at [facility] on [address] 2Admin Note: VIS given 3Admin Note: Administered at [facility] on [address] in [place]. 4Location History: [facility] pharmacy 5Result Comment: [06/27/2014] PT [...] 1 each, 0 Refills, 04/14/21 19:19:00 EDT, [facility]/pharmacy #1972, INHALE 2 PUFFS EVERY 6 HOURS NEEDED FOR WHEEZING/SHORTNESS OF BREATH, 160.02, cm, 04/14/21 14... Start Date: 04/14/21 Status: Ordered Azithromycin 5 Day Dose Pack 250 mg oral tablet See Instructions, as directed on package labeling, # 6 tablet, 0 Refills, Maintenance, 05/05/21 9:14:00 EDT, [facility]/pharmacy #1972, Partial fill upon [...] 06/01/21 18:02:00 EDT, Route to Pharmacy Electronically, [facility]/pharmacy #1972, Partial fill u... Start Date: [...] 06/28/21 16:04:00 EST, Route to Pharmacy Electronically, [id number], [facility]/pharmacy#1972, 160.02, cm, 06/08/21 8:42:00 EST, Height, 85... Start Date: 06/28/21 Stop Date: 12/25/21 Status: Ordered ProAir HFA 90 mcg/inh inhalation aerosol with adapter 2, puffs, Inhalation, Every 6 hours, PRN, # 1 each, Refills 5, Tot. Refills 5, Maintenance, 05/19/20 16:20:00 EDT, Route to Pharmacy Electronically, [id number], [facility]/pharmacy#1972, 160.02, cm, 04/28/20 13:40:00 EDT, Height, [...] 1 Refills, Soft Stop, 10/07/20 9:06:00 EST, [facility]/pharmacy #1972, Partial fill upon patient request if the prescription is for a schedule II opioid drug., 160.... Start Date: 10/07/20 Status: Ordered Symbicort 160mcg/4.5mcg Inhaler INHALE 2 PUFFS TWICE A DAY Start Date: 05/05/21 Status: Ordered verapamil 180 mg oral capsule, extended release 1 capsule, By Mouth, Daily, # 30 capsule, 5 Refills, Maintenance, 02/04/21 9:28:00 EDT, [facility], 160.02, cm, 01/26/21 9:12:00 EDT, Height, 88.8, [...] *Joseph Resendez, [facility], ICP [phone](Confirmed) Active 1Jantoinette Streeter [facility] Psychiatry [place] 2Case Construction Laborer Parish Proctor ([facility]); Psychiatrist - Dr Konstantin Narvaez 3admitted at adult partial hospitalization program (adult intensive short term out-pt psychiatric program). 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 BRCA1/2 negative,seen by genetics 6follow up at [facility] GI - Dr Richey. Multiple endoscopies, all normal. Other diagnosis is Non-ulcer dyspepsia Social History Social History Type Response Smoking Status Never smoker entered on: 02/07/14 Sex Female
--- OUTSIDE RECORDS SUMMARY | 2024-04-05 15:22 | XMS_ITS | Continuity of Care Document ---
Author Organization [facility] Adult Medicine Address [address] [place] [address]- Care Team Providers Care Account Processor Name Role Phone Mitch Lopez Primary Care Physician [phone] [facility]s): 07/07/20 - 08/06/20 [facility] Adult Medicine [address] [place], [place] [address] Allergies, Adverse Reactions, Alerts Substance Reaction [...] Refuses 1Result Comment: Received at [facility] on [address] 2Admin Note: VIS given 3Admin Note: Administered at [facility] on [address] in [place]. 4Location History: [facility] pharmacy 5Result Comment: [06/27/2014] PT HAD AT [facility] C[facility] 6Admin Note: VIS GIVEN VIS DATE 01/30/2012 [...] Gm, 2 Refills, Maintenance, 03/04/20 12:12:00 EDT, [facility]/pharmacy #1972, 160.02, cm, 03/04/20 11:50:00 EDT, Height, [...] tablet, 2 Refills, Maintenance, 07/29/20 17:21:00 EST, [facility]/pharmacy #1972, Partial fill upon patient request if the prescription is for a schedule II opioid drug.... Start Date: 07/29/20 Status: Ordered ibuprofen 600 mg oral tablet 600 mg, 1, tablet, By Mouth, 4 times a day, PRN, # 40 tablet, Refills 0, Tot. Refills 0, Maintenance, for pain, 07/15/20 20:01:00 EST, Route to Pharmacy Electronically, [facility]/pharmacy #1972, Partial fill upon patient request if the prescription is for a... Start Date: 07/15/20 Status: Ordered melatonin 3 mg oral tablet 1 tablet = 3 mg, By Mouth, Daily at bedtime, for 30 days, to help with sleep., # 30 tablet, 1 Refills, Acute 09/27/20 17:22:00 EST, 07/29/20 17:22:00 EST, [facility]/pharmacy #1972, Partial fill upon patient [...] 05/19/20 16:20:00 EDT, Route to Pharmacy Electronically, [id number], [facility]/pharmacy#1972, 160.02, cm, 04/28/20 13:40:00 EDT, Height, 9... Start Date: 05/19/20 Stop Date: 11/15/20 Status: Ordered ProAir HFA 90 mcg/inh inhalation aerosol with adapter 2, puffs, Inhalation, Every 6 hours, PRN, # 1 each, Refills 5, Tot. Refills 5, Maintenance, 06/16/20 18:28:00 EST, Route to Pharmacy Electronically, [id number], [facility]/pharmacy#1972, 160.02, cm, 05/27/20 13:10:00 EDT, [...] 0 Refills, Soft Stop, 07/27/20 16:51:00 EST, [facility]/pharmacy #1972, Partial fill upon patient request if theprescription is for a schedule II opioid drug., 160... Start Date: 07/27/20 Status: Ordered verapamil 100 mg oral capsule, extended release See Instructions, 1 CAPSULE BY MOUTH DAILY AT BEDTIME,X90 DAYS, # 30 capsule, 11 Refills, Maintenance, [facility], 160.02, cm, 10/11/19 15:24:00 EDT, Height, 85.91, [...] Active *Joseph Resendez, Care Coord inator, ICP [phone](Confirmed) Active 1Jantoinette Streeter [facility] Psychiatry [place] 2Case Thermometer Tester [place] ([facility]); Psychiatrist - Dr Konstantin Narvaez [...]
--- OUTSIDE RECORDS SUMMARY | 2024-04-05 15:22 | XMS_ITS | Continuity of Care Document ---
Author Organization [facility] Address [address] [place] [address] [address], [address] [place] [address]- Care Team Providers Care Mds Coordinator Name Role Phone Mitch Lopez Primary Care Physician [phone] Encounter [facility] Date(s): 09/09/19 - 09/16/19 [facility] Neurosurgery [address] [place] [address] Drive, [address] [place] [address]- [facility] Attending Physician: Deysi Gomez DO Allergies, Adverse [...] Patient Refuses 1Admin Note: Administered at [facility] on [address] in [place]. 2Location History: [facility] pharmacy 3Result Comment: [06/27/2014] [...] Replace Required Details, Route to Pharmacy Electronically, [facility]... Start Date: 08/09/19 Status: Ordered gabapentin 300 mg oral capsule 300 mg, 1, capsule, By Mouth, 3 times a day, # 90 capsule, Refills 0, Maintenance, 09/09/19 11:53:00 EST Start Date: 09/09/19 Status: Ordered Macrobid macrocrystals-monohydrate 100 mg oral capsule 1 capsule = 100 mg, By Mouth, 2 times a day, for 7 days, # 14 capsule, 0 Refills, Acute 09/20/19 17:47:00 EST, 09/13/19 17:47:00 EST, Capsule, [facility]/pharmacy #1972, 160.02, cm, 09/13/19 15:19:00 EST, Height, 85.91, kg, 08/01/19 12:13:00 EST, Dry Weight Start Date: 09/13/19 Stop Date: 09/20/19 Status: Ordered oxyCODONE 5 mg oral tablet 5 mg, 1, tablet, By Mouth, Every 6 hours, PRN, may obtain fewer than prescribed., # 16 tablet, Refills 0, Tot. Refills 0, Maintenance, Pain , Severe, 09/13/19 17:49:00 EST, Route to Pharmacy Electronically, [facility]/pharmacy #1972, Partial fill upon patien... Start Date: 09/13/19 Stop Date: 09/17/19 Status: Ordered POISE PADS POISE PADS, See Instructions, # 180 each, Refills 5, Tot. Refills 5, Maintenance, For stress incontinence (N93.3), Cystoscopy (Z98.890)., 02/27/19 14:16:26 EDT, Compound Start Date: 02/27/19 Status: Ordered ProAir HFA 90 mcg/inh inhalation aerosol with adapter 2, puffs, Inhalation, Every 6 hours, PRN, # 1 each, Refills 5, Tot. Refills 5, Maintenance, 07/25/19 14:29:00 EST, Route to Pharmacy Electronically, [id number], [facility], 158, cm, 07/25/19 13:55:00 EST, Height, 91.3... [...] Chronic migraine(Confirmed) Active OCD(Confirmed) Active Dyan Streeter [facility] [place] 2Case Computer Instructor Parish Proctor ([facility]); Psychiatrist - [...] by genetics 6follow up at [facility] GI - Dr Richey. Multiple endoscopies, all normal. Other diagnosis is Non-ulcer dyspepsia Vital Signs Most recent to oldest [Reference Range]: 1 Height 160.02 cm (09/09/19 11:51 AM) Weight 85.91 kg (09/09/19 11:51 AM) Body Mass Index [18.5-24.99] 33.55 *>HHI* (09/09/19 11:51 AM) Social History Social History Type Response Smoking Status Never smoker entered on: 02/07/14 Sex Female
--- OUTSIDE RECORDS SUMMARY | 2024-04-05 15:22 | XMS_ITS | Continuity of Care Document ---
Author Organization [facility] Address [address] [place] [address], [address] [place] [address]- Care Team Providers Care Sales Executive Insurance Name Role Phone Mitch Lopez Primary Care Physician [phone] [facility] 04[facility]14/20 - 05/14/20 [facility] [address] [place] [address], [address] [place] [address]- [facility] Allergies, Adverse Reactions, Alerts Substance Reaction [...] Given Patient Refuses 1Admin Note: Administered at [facility] on [address] in [place]. 2Location History: [facility] pharmacy 3Result Comment: [06/27/2014] PT HAD AT [facility] 4Admin Note: VIS GIVEN VIS DATE 01/30/2012 [...] Gm, 2 Refills, Maintenance, 03/04/20 12:12:00 EDT, [facility]/pharmacy #1972, 160.02, cm, 03/04/20 11:50:00 EDT, Height, [...] 03/12/20 7:19:00 EDT, Route to Pharmacy Electronically, [id number], [facility]/pharmacy #1972, 160.02, cm, 03/04/20 11:50:00 EDT, Height, [...] DAYS, # 30 capsule, 11 Refills, Maintenance, [facility] STORE 39711, 160.02, cm, 10/11/19 15:24:00 EDT, Height, 85.91, [...] Active *Joseph Resendez, Care Coord inator, ICP [phone](Confirmed) Active 1Jantoinette Streeter [facility] 2Case Supervisor Cartography Parish Proctor ([facility]); Psychiatrist [...] BRCA1/2 negative,seen by genetics 6follow up at [facility] GI - Dr Richey. Multiple endoscopies, all normal. Other diagnosis is Non-ulcer dyspepsia Social History Social History Type Response Smoking Status Never smoker entered on: 02/07/14 Sex Female
--- OUTSIDE RECORDS SUMMARY | 2024-04-05 15:22 | XMS_ITS | Continuity of Care Document ---
Author Organization [facility] Address [address] [place] [address]- Care Team Providers Care Technical Sales Director Name Role Phone Mitch Lopez Primary Care Physician [phone] [facility] 02/16/21 - 03/18/21 [facility] [address] [place], [place] [address] Allergies, Adverse Reactions, Alerts Substance Reaction Severity [...] influenza virus vaccine, inactivated 6 04/10/12 Gi mikaeal influenza virus vaccine, inactivated 7 05/18/11 Gi [...] Patient Refuses 1Result Comment: Received at [facility] on [address] 2Admin Note: VIS given 3Admin Note: Administered at [facility] on [address] in [place]. 4Location History: [facility] pharmacy 5Result Comment: [06/27/2014] PT HAD AT [facility] 6Admin Note: VIS GIVEN VIS [...] Refills, Maintenance, 12/04/20 17:24:00 EDT, Tablet, [facility]/pharmacy #1972, Partial fill upon patient request if the prescription is for a schedule II opioid drug., 160.02, cm, 12/04/20 17:05:00 EDT, Heakira... Start Date: 12/04/20 Status: Ordered Colace sodium 100 mg oral capsule 100 mg, 1, capsule, By Mouth, 2 times a day, PRN, # 20 capsule, Refills 0, Tot. Refills 0, Maintenance, for constipation, 02/07/21 10:55:00 EDT, Route to Pharmacy Electronically, [facility]/pharmacy #1972, Partial fill upon patient request if [...] Refills, Maintenance, 02/07/21 10:54:00 EDT, Gel, [facility]/pharmacy #1972, Partial fill upon patient request if [...] Gm, 0 Refills, Maintenance, 08/08/20 15:21:00 EST, [place], [facility], Partial fill upon patient request [...] tablet, 2 Refills, Maintenance, 10/07/20 9:05:00 EST, [facility]/pharmacy #1972, Partial fill upon patient request if the prescription is for a schedule II opioid drug., 160.02, cm, 10/07/20 8:15:00 EST, [place]... Start Date: 10/07/20 Status: Ordered naproxen 500 mg oral tablet 1 tablet = 500 mg, By Mouth, 2 times a day, # 28 tablet, 0 Refills, Maintenance, 03/08/21 18:54:00 EDT, Tablet, [facility]/pharmacy #1972, Partial fill upon patient request if [...] 05/19/20 16:20:00 EDT, Route to Pharmacy Electronically, [id number], [facility]/pharmacy#1972, 160.02, cm, 04/28/20 13:40:00 EDT, Height, 9... Start Date: 05/19/20 Stop Date: 11/15/20 Status: Ordered ProAir HFA 90 mcg/inh inhalation aerosol with adapter 2, puffs, Inhalation, Every 6 hours, PRN, # 1 each, Refills 5, Tot. Refills 5, Maintenance, 06/16/20 18:28:00 EST, Route to Pharmacy Electronically, [id number], [facility]/pharmacy#1972, 160.02, cm, 05/27/20 13:10:00 EDT, Height, 9... [...] Stop, 10/07/20 9:06:00 EST, [facility]/pharmacy #1972, Partial fill upon patient request if the prescription is for a schedule II opioid drug., 160.... Start Date: 10/07/20 Status: Ordered verapamil 180 mg oral capsule, extended release 1 capsule, By Mouth, Daily, # 30 capsule, 5 Refills, Maintenance, 02/04/21 9:28:00 EDT, [facility], 160.02, cm, 01/26/21 9:12:00 EDT, Height, 88.8, [...] Active *Lukisha Mal, Care Coord avril, ICP [phone](Confirmed) Active 1Jantoinette Streeter [facility] [place] [facility] [place] 2Case Geneticist Parish Proctor ([facility]); Psychiatrist - [...]
--- OUTSIDE RECORDS SUMMARY | 2024-04-05 15:22 | XMS_ITS | Continuity of Care Document ---
Author Organization [facility] Address [address] [place] [address]- Care Team Providers Care Sustainability Engineer Name Role Phone Mitch Lopez Primary Care Physician [facility]s): 01/13/23 - 02/12/23 [facility] [address] [place] [address]- Encounter Diagnosis Chronic back pain(Discharge Diagnosis) - 06/22/19 Attending Physician: Admtr, Jana Allergies, Adverse Reactions, Alerts Substance Reaction Severity [...] Given Patient Refuses 1Admin Note: Administered at [facility] on [facility] in [place]. 2Location History: [facility] pharmacy 3Result Comment: [06/27/2014] PT HAD AT [facility] 4Admin Note: VIS GIVEN VIS DATE 01/30/2012 5Admin Note: flulaval vis given vis date 02/22/2011 6Admin Note: vis given 03/09/10 7Result Comment: Received at [facility] on [facility] 8Admin Note: VIS given 9Admin Note: [...] patch, 1 Refills, Maintenance, 07/07/22 18:54:00 EST, [facility] STORE 57336, 30, APPLY 1 PATCH TOPICALLY DAILY NEEDED [...] 10/31/22 16:24:00 EDT, Route to Pharmacy Electronically, [facility]/pharmacy #1972, Partial fill upon patien... [...] each, 11 Refills, Maintenance, 11/21/22 12:15:00 EDT, [facility]/pharmacy #1972, Partial fill upon patient [...] 19:11:00 EDT, Aerosol, Route to Pharmacy Electronically, [id number], [facility], 161... Start Date: 11/24/22 Status: [...] Confirmed Active OCD Confirmed Active *Joseph Resendez, Adult Crossing Guard, ICP [phone] Confirmed Active 1Jantoinette Streeter [facility] [place] [facility] [place] 2Case Complaint Evaluation Officer Parish Proctor ([facility]); Psychiatrist - Dr [...] Sex Female Laboratory * Event Display: Non BH Lab Results Authored Date: Radiology * Event Display: MRI Knee, Non- BH Authored Date: * Event Display: X-Ray Shoulder, Non- BH Authored Date: * Event Display: X-Ray Shoulder, Non- BH Authored Date: * Event Display: MRI Knee Authored Date: * Sadie Lozano: PERFORM Event Display: Radiology Results Scanned Authored Date: Patient Care team information Care Team Personnel Name: Mitch Lopez Position: [facility] Associate Professional Member Role: PCP Address: Address: [address] [place] [address] [place] [address]- Care Team Related Persons Name: GABINO CASTANEDA Address: home [address] [place] [address] Name: JERROD BEAUCHAMP Address: [place], [place] Name: BRE MIRANDA Address: [address] [place] [address] Name: ALEYDA BEE Address: [address] [place] [address] Name: ALEYDA BEE Address: home [address] [place] [address] Name: DELORIS ROMIE Address: home [address] [place] [address]
--- OUTSIDE RECORDS SUMMARY | 2024-04-05 15:22 | XMS_ITS | Continuity of Care Document ---
Author Organization [facility] Address [address] [place] [address]- Care Team Providers Care Audience Development Manager Name Role Phone Mitch Lopez Primary Care Physician Encounter [facility] Date(s): 11/03/22 - 12/21/22 [facility] [address] [place] [address]- Attending Physician: Mitch Lopez Admitting Physician: Mitch Lopez Allergies, Adverse Reactions, Alerts Substance Reaction Severity Status Motrin Breathing problem GI upset Active Compazine unknown Active Bactrim bruising Active sulfa drugs Breathing problem Active Immunizations Given and Recorded Vaccine Date Status Refusal Reason influenza virus vaccine, inactivated 04/29/22 Darren rded influenza virus vaccine, inactivated 05/10/21 Darren rded influenza virus vaccine, inactivated 04/02/20 Darren rded influenza virus vaccine, inactivated 04/17/19 Darren rded influenza virus vaccine, inactivated 04/07/18 Darern rded influenza virus vaccine, inactivated 1 04/05/18 [...] Note: Administered at [facility] on [facility] in [place]. 2Location History: [facility] pharmacy 3Result Comment: [06/27/2014] PT HAD AT [facility] 4Admin Note: VIS GIVEN VIS DATE 01/30/2012 5Admin Note: flulaval vis given vis date 02/22/2011 6Admin Note: vis given 03/09/10 7Result Comment: Received at [facility] on [facility] 8Admin Note: VIS given 9Admin Note: [...] opioid drug. Start Date: 09/14/22 Status: Ordered hydrOXYzine hydrochloride 25 mg oral tablet 1 tablet = 25 mg, By Mouth, 2 times a day, PRN as needed for anxiety, # 60 tablet, 2 Refills, Maintenance, 12/19/22 8:39:00 EDT, [facility]/pharmacy #1972, Partial fill upon patient request if the prescription is for a schedule II opioid drug., 161, cm, 11/29... Start Date: 12/19/22 Status: Ordered lidocaine 5% topical film 1 patch, Topically, Daily, PRN NEEDED FOR PAIN REMOVE AFTER 12 HOURS, # 30 patch, 1 Refills, Maintenance, 07/07/22 18:54:00 EST, [facility] STORE 34779, 30, APPLY 1 PATCH TOPICALLY DAILY NEEDED FOR PAIN REMOVE AFTER 12 HOURS, 160, cm, 06/07/22 9:36:00... Start Date: 07/07/22 Status: Ordered Mapap Arthritis Pain 650 mg oral tablet, extended release 2 tablet = 1,300 mg, By Mouth, Every 8 hours, PRN as needed for pain, # 100 tablet, 1 Refills, Maintenance, 10/21/22 15:42:00 EDT, ER Tablet, [facility]/pharmacy #1972, Partial fill upon [...] 16:24:00 EDT, Route to Pharmacy Electronically, [facility]/pharmacy #1972, Partial fill upon patien... Start Date: [...] 19:11:00 EDT, Aerosol, Route to Pharmacy Electronically, [id number], [facility], 161... Start Date: 11/24/22 Status: [...] Confirmed Active OCD Confirmed Active *Joseph Resendez, [employer]ement Railroad Car Loader, ICP [phone] Confirmed Active 1Jantoinette Streeter [facility] [place] 2Case Escrow Clerk Parish Proctor ([facility]); Psychiatrist - Dr Konstantin Narvaez 3admitted [...] Associate Professional Member Role: PCP Address: Address: [address] [place] [address] [place] [address]- Care Team Related Persons Name: TONYA GABINO Address: [address] [place] [address] Name: JERROD BEAUCHAMP Address: [place], [place] Name: BRE MIRANDA Address: [address] [place] [address] Name: ALEYDA BEE Address: home [address] [place] [id number] Name: ALEYDA BEE Address: [address] [place] [address] Name: ROMIE PUENTES Address: home [address] [place] [id number]
--- OUTSIDE RECORDS SUMMARY | 2024-04-05 15:22 | XMS_ITS | Continuity of Care Document ---
Author Organization [facility] Address [address] [place] [address]- Care Team Providers Care Amusement Ride Operator Name Role Phone Mitch Lopez Primary Care Physician [facility] 10/25/21 - 11/24/21 [facility] [address] [place] [address]- Allergies, Adverse Reactions, Alerts Substance Reaction Severity [...] Received at [facility] on [facility] [address] 2Admin Note: VIS given 3Admin Note: Administered at [facility] on [facility] [address] in [place]. 4Location History: [facility] pharmacy 5Result Comment: [06/27/2014] PT HAD AT [facility] 6Admin Note: VIS GIVEN VIS [...] 11/22/21 11:19:00 EDT, Route to Pharmacy Electronically, [facility] [...] # 120 tablet, 2 Refills, [facility], 160.02, cm, 07/05/21 10:30:00 EST, Height, 85, [...] 09/07/21 11:12:00 EST, Route to Pharmacy Electronically, [id number], [facility]/pharmacy #1972, 160.02, cm, [...] 17:59:00 EST, Aerosol, Route to Pharmacy Electronically, [id number], [facility], 160... Start Date: 09/08/21 Status: [...] # 30 capsule, 5 Refills, [facility], 160.02, cm, 07/05/21 10:30:00EST, Height, 85, kg, [...] Active OCD(Confirmed) Active *Joseph Resendez, [facility] [phone](Confirmed) Active Dyan Streeter [facility] 2Case [address] Judge Parish Proctor ([facility]); Psychiatrist - Dr Konstantin Narvaez 3admitted at adult partial hospitalization program (adult intensive short term out-pt psychiatric program). 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 BRCA1/2 negative,seen by genetics 6follow up at [facility] GI - Dr Richey. Multiple endoscopies, all normal. Other diagnosis is Non-ulcer dyspepsia Social History Social History Type Response Smoking Status Never smoker entered on: 02/07/14 Sex Female
--- OUTSIDE RECORDS SUMMARY | 2024-04-05 15:22 | XMS_ITS | Continuity of Care Document ---
Author Organization [facility] Address [address] [place] [address]- Care Team Providers Care Manufacturing Chief Engineer Name Role Phone Mitch Lopez Primary Care Physician [facility]counter [facility]): 02/22/21 - 03/24/21 [facility] [address] [place], [place] [address] Allergies, Adverse [...] Given Patient Refuses 1Result Comment: Received at [facility] on [address] 2Admin Note: VIS given 3Admin Note: Administered at [facility] on [address] in [place]. 4Location History: [facility] pharmacy 5Result Comment: [06/27/2014] PT HAD AT [facility] 6Admin Note: VIS GIVEN VIS [...] 0 Refills, Maintenance, 12/04/20 17:24:00 EDT, Tablet, [facility]/pharmacy #1972, Partial fill upon patient request if the prescription is for a schedule II opioid drug., 160.02, cm, 12/04/20 17:05:00 EDT, [facility]... Start Date: 12/04/20 Status: Ordered Colace sodium 100 mg oral capsule 100 mg, 1, capsule, By Mouth, 2 times a day, PRN, # 20 capsule, Refills 0, Tot. Refills 0, Maintenance, for constipation, 02/07/21 10:55:00 EDT, Route to Pharmacy Electronically, [facility]/pharmacy #1972, Partial fill upon patient request if [...] 0 Refills, Maintenance, 02/07/21 10:54:00 EDT, Gel, [facility]/pharmacy #1972, Partial fill upon patient request if [...] Gm, 0 Refills, Maintenance, 08/08/20 15:21:00 EST, [place], [facility], Partial fill upon patient request [...] 05/19/20 16:20:00 EDT, Route to Pharmacy Electronically, [id number], [facility], 160.02, cm, 04/28/20 13:40:00 EDT, Height, 9... Start Date: 05/19/20 Stop Date: 11/15/20 Status: Ordered ProAir HFA 90 mcg/inh inhalation aerosol with adapter 2, puffs, Inhalation, Every 6 hours, PRN, # 1 each, Refills 5, Tot. Refills 5, Maintenance, 06/16/20 18:28:00 EST, Route to Pharmacy Electronically, [id number], [facility]/pharmacy#1972, 160.02, cm, 05/27/20 13:10:00 EDT, [...] 1 Refills, Soft Stop, 10/07/20 9:06:00 EST, [facility]/pharmacy #1972, Partial fill upon patient request if the prescription is for a schedule II opioid drug., 160.... Start Date: 10/07/20 Status: Ordered verapamil 180 mg oral capsule, extended release 1 capsule, By Mouth, Daily, # 30 capsule, 5 Refills, Maintenance, 02/04/21 9:28:00 EDT, [facility] STORE 66456, 160.02, cm, 01/26/21 9:12:00 EDT, Height, 88.8, [...] Active *Joseph Resendez, Care Coord inator, ICP [phone](Confirmed) Active 1Jantoinette Streeter [facility] [place] [facility] [place] 2Case Liquid Compounder Parish Esthela ([facility]); Psychiatrist - Dr Konstantin Narvaez [...]
--- OUTSIDE RECORDS SUMMARY | 2024-04-05 15:22 | XMS_ITS | Continuity of Care Document ---
Author Organization [facility] Address [address] [place] [address]- Care Team Providers Care Client Service Professional Name Role Phone Mitch Lopez Primary Care Physician Encounter [facility] Date(s): 11/29/21 - 12/29/21 [facility] [address] [place] [address]- Attending Physician: Jorge Fregoso MD Admitting Physician: [...] [facility] on [facility] in [place]. 2Location History: [facility] 3Result Comment: [06/27/2014] PT HAD AT [facility] 4Admin Note: VIS GIVEN VIS DATE 01/30/2012 5Admin Note: flulaval vis given vis date 02/22/2011 6Admin Note: vis given 03/09/10 7Result Comment: Received at [facility] on [facility] 8Admin Note: VIS given 9Admin Note: 2nd [...] application, # 42.5 Gm, 0 Refills, Acute 06/07/22 14:43:00 EDT, 12/21/21 14:43:00 EDT, Cream, [facility] [...] # 120 tablet, 2 Refills, [facility], 160, cm, 11/22/21 10:23:00 EDT, Height, 88.2, [...] 09/07/21 11:12:00 EST, Route to Pharmacy Electronically, [id number], [facility]/pharmacy #1972, 160.02, cm, 09/07/21 10:18:00 EST, Height,... Start Date: 09/07/21 Stop Date: 09/02/22 Status: Ordered Spiriva Respimat 1.25 mcg/inh inhalation aerosol 2 puffs, Inhalation, Daily, # 1 each, 11 Refills, Maintenance, 09/07/21 11:12:00 EST, [facility]/pharmacy [...] 1 Refills, Soft Stop, 10/07/20 9:06:00 EST, [facility]/pharmacy #1972, Partial fill upon patient request if the prescription is for a schedule II opioid drug., 160.... Start Date: 10/07/20 Status: Ordered Symbicort 160mcg/4.5mcg Inhaler 2, puffs, Inhalation, 2 times a day, rinse mouth and throat after use, # 10.2 Gm, Refills 11, Tot. Refills 11, Maintenance, 09/08/21 17:59:00 EST, Aerosol, Route to Pharmacy Electronically, [id number], [facility], 160... Start Date: 09/08/21 Status: [...] # 30 capsule, 5 Refills, [facility], 160.02, cm, 07/05/21 10:30:00EST, Height, 85, kg, [...] Active *Joseph Resendez, Care Coord inator, ICP [phone](Confirmed) Active 1Jantoinette Streeter [facility] [place] [facility] [place] 2Case Automotive General Sales Manager Parish Proctor ([facility]); Psychiatrist - [...] BRCA1/2 negative,seen by genetics 6follow up at [facility] GI - Dr Richey. Multiple endoscopies, all normal. Other diagnosis is Non-ulcer dyspepsia Social History Social History Type Response Smoking Status Never smoker entered on: 02/07/14 Sex Female
--- OUTSIDE RECORDS SUMMARY | 2024-04-05 15:22 | XMS_ITS | Continuity of Care Document ---
Author Organization [facility] Address [address] [place] [address], [address] [place] [address]- Care Team Providers Care Route Driver Salesperson Name Role Phone Mitch Lopez Primary Care Physician [phone] [facility]): 08[facility]26/21 - 10/08/21 [facility] [address] [place] [address], [address] [place], [place] [address] Attending Physician: Deysi Gomez DO Referring Physician: [...] Patient Refuses 1Result Comment: Received at [facility] on [facility] [address] 2Admin Note: VIS given 3Admin Note: Administered at [facility] on [facility] in [place]. 4Location History: [facility] pharmacy 5Result Comment: [06/27/2014] PT HAD AT [facility] 6Admin Note: VIS GIVEN [...] 42.5 Gm, 2 Refills, Maintenance, 09/08/20 14:57:00EST, [facility]/pharmacy #1972, 160.02, cm, 07/29/20 16:36:00 [...] # 120 tablet, 2 Refills, [facility], 160.02, cm, 07/05/21 10:30:00 EST, Height, 85, kg, 03/11/21 17:07:00 EDT, Dry Weight Start Date: 08/22/21 Status: Ordered meloxicam 7.5 mg oral tablet 1 tablet, By Mouth, Daily, FOR ARTHRITIS PAIN. TAKE WITH FOOD, # 30 tablet, 1 Refills, [facility] STORE 21980, 160.02, cm, 09/16/21 14:31:00 EST, Height, 85, [...] 09/07/21 11:12:00 EST, Route to Pharmacy Electronically, [id number], [facility]/pharmacy #1972, 160.02, cm, 09/07/21 10:18:00 EST, Height,... Start Date: 09/07/21 Stop Date: 09/02/22 Status: Ordered Spiriva Respimat 1.25 mcg/inh inhalation aerosol 2 PUFFS INHALATION ONCE A DAY 30 DAYS Start Date: 05/05/21 Status: Ordered Spiriva Respimat 1.25 mcg/inh inhalation aerosol 2 puffs, Inhalation, Daily, # 1 each, 11 Refills, Maintenance, 09/07/21 11:12:00 EST, [facility]/pharmacy #1972, Partial fill upon patient [...] 1 Refills, Soft Stop, 10/07/20 9:06:00 EST, [facility]/pharmacy #1972, Partial fill upon patient [...] 17:59:00 EST, Aerosol, Route to Pharmacy Electronically, [id number], [facility]/pharmacy #1972, 160... Start Date: 09/08/21 [...] # 30 capsule, 5 Refills, [facility], 160.02, cm, 07/05/21 10:30:00EST, Height, 85, kg, [...] Active OCD(Confirmed) Active *Joseph Resendez, [facility] [phone](Confirmed) Active 1Jantoinette Streeter [facility] [place] [facility] [place] 2Case Casting Tester Parish Proctor ([facility]); Psychiatrist - Dr Konstantin Narvaez 3admitted [...]
--- OUTSIDE RECORDS SUMMARY | 2024-04-05 15:22 | XMS_ITS | Continuity of Care Document ---
Author Organization [facility] Address [address] [place] [address]- Care Team Providers Care Railroad Brake Operator Name Role Phone Mitch Lopez Primary Care Physician Encounter [facility] Date(s): 02/16/21 - 02/23/21 [facility] [address] [place] [address]- Attending Physician: Wu Taylor MD Referring Physician: [...] Administered at [facility] on [address] in [place]. 4Location History: [facility] 5Result Comment: [06/27/2014] PT HAD AT [facility] 6Admin Note: VIS GIVEN VIS DATE 01/30/2012 [...] 02/07/21 10:55:00 EDT, [place] Pharmacy Electronically, [facility] [place] 0 Refills, Maintenance, 02/07/21 10:54:00 EDT, Gel, [facility]/pharmacy #1972, Partial fill [...] Gm, 0 Refills, Maintenance, 08/08/20 15:21:00 EST, [place], [facility], Partial fill upon patient request [...] 0 Refills, Maintenance, 02/04/21 16:29:00 EDT, Tablet, [facility]/pharmacy #1972, [...] 05/19/20 16:20:00 EDT, Route to Pharmacy Electronically, [id number], [facility], 160.02, cm, 04/28/20 13:40:00 EDT, Height, 9... Start Date: 05/19/20 Stop Date: 11/15/20 Status: Ordered ProAir HFA 90 mcg/inh inhalation aerosol with adapter 2, puffs, Inhalation, Every 6 hours, PRN, # 1 each, Refills 5, Tot. Refills 5, Maintenance, 06/16/20 18:28:00 EST, Route to Pharmacy Electronically, [id number], [facility]/pharmacy#1972, 160.02, cm, 05/27/20 [...] 1 Refills, Soft Stop, 10/07/20 9:06:00 EST, [facility]/pharmacy #1972, Partial fill upon patient request if the prescription is for a schedule II opioid drug., 160.... Start Date: 10/07/20 Status: Ordered verapamil 180 mg oral capsule, extended release 1 capsule, By Mouth, Daily, # 30 capsule, 5 Refills, Maintenance, 02/04/21 9:28:00 EDT, [facility], 160.02, cm, 01/26/21 9:12:00 EDT, Height, 88.8, [...] stone(Confirmed) Active Chronic migraine(Confirmed) Active OCD(Confirmed) Active *Yaeltuan Rodriguezdick, Care Coord avril, ICP [phone](Confirmed) Active 1Jantoinette Streeter [facility] [place] [facility] [place] 2Case Autotransfusionist Parish Esthela ([facility]); Psychiatrist - Dr Konstantin Narvaez 3admitted [...] oldest [Reference Range]: 1 Height 160.02 cm (02/16/21 5:20 PM) Oxygen Saturation [94-100 %] 99 % (02/16/21 5:20 PM) Pulse Rate [55-90 bpm] 82 bpm (02/16/21 5:20 PM) Blood Pressure [90-138/55-84 mm Hg] 147/ 79mm Hg *H* (02/16/21 5:20 PM) Respiratory Rate [16-30 br/min] 20 br/mi n (02/16/21 5:20 PM) Temperature [96.8-100.4 DegF] 96.8 DegF (02/16/21 5:20 PM) Mode of Delivery (Oxygen) Room air (02/16/21 5:20 PM) Blood pressure sites Arm, left (02/16/21 5:20 PM) Temperature Route Temporal (02/16/21 5:20 PM) Social History Social History Type Response Smoking Status Never smoker entered on: 02/07/14 Sex Female
--- OUTSIDE RECORDS SUMMARY | 2024-04-05 15:23 | XMS_ITS | Continuity of Care Document ---
Author Organization [facility] Address [address] [place] [address]- Care Team Providers Care Instrument Technician Helper Name Role Phone Mitch Lopez Primary Care Physician [phone] [facility] Date[facility] 02/02/23 - 03/04/23 [facility] [address] [place], [place] [address] Allergies, Adverse Reactions, Alerts Substance Reaction [...] influenza virus vaccine, inactivated 5 05/18/11 Gi mkiaela influenza virus vaccine, inactivated 6 07/08/10 Gi [...] Note: Administered at [facility] on [facility] in [place]. 2Location History: [facility] pharmacy 3Result Comment: [06/27/2014] PT HAD AT [facility] 4Admin Note: VIS GIVEN VIS DATE 01/30/2012 5Admin Note: flulaval vis given vis date 02/22/2011 6Admin Note: vis given 03/09/10 7Result Comment: Received at [facility] on [facility] 8Admin Note: VIS given 9Admin Note: [...] 07/07/22 18:54:00 EST, [facility] STORE 24334, 30, APPLY 1 PATCH TOPICALLY DAILY NEEDED [...] 19:11:00 EDT, Aerosol, Route to Pharmacy Electronically, [id number], [facility]/pharmacy #1972, 161... Start Date: [...] Confirmed Active OCD Confirmed Active *Joseph Resendez, Group Home Paraprofessional, ICP [phone] Confirmed Active 1Jantoinette Streeter [facility] 2Case Asl Interpreter Parish Proctor ([facility]); Psychiatrist - [...] BRCA1/2 negative,seen by genetics 6follow up at [facility] GI - Dr Richey. Multiple endoscopies, all normal. Other diagnosis is Non-ulcer dyspepsia Social History Social History Type Response Smoking Status Never smoker entered on: 02/07/14 Sex Female Patient Care team information Care Team Personnel Name: Mitch Lopez Position: S PCO Associate Professional Member Role: PCP Address: Address: [address] [place] [address] [place] [address]- Care Team Related Persons Name: GABINO CASTANEDA Address: home [address] [place] [address] Name: JERROD BEAUCHAMP Address: [place], [place] Name: BRE MIRANDA Address: home [address] [place] [address] Name: ALEYDA BEE Address: home [address] [place] [address] Name: ALEYDA BEE Address: home [address] [place] [address] Name: ROMIE PUENTES Address: home [address] [place] [address]
--- OUTSIDE RECORDS SUMMARY | 2024-04-05 15:23 | XMS_ITS | Continuity of Care Document ---
Author Organization [facility] Address [address] [place] [address]- Care Team Providers Care Summer Child Caregiver Name Role Phone Mitch Lopez Primary Care Physician [place] [facility] [place] 11/24/20 - 12/01/20 [facility] [address] [place] [address]- Attending Physician: Wu Taylor MD Referring Physician: [...] [facility] [address] in [place]. 4Location History: [facility] pharmacy [...] EDT, Compound Start Date: 10/16/18 Status: Ordered [facility] MELATONIN 3 MG TABLET [facility] MELATONIN 3 MG TABLET, 1, [...] Gm, 0 Refills, Maintenance, 08/08/20 15:21:00 EST, [place], [facility], Partial fill upon patient request [...] tablet, 2 Refills, Maintenance, 10/07/20 9:05:00 EST, [facility]/pharmacy #1972, Partial [...] 05/19/20 16:20:00 EDT, Route to Pharmacy Electronically, [id number], [facility]/pharmacy#1972, 160.02, cm, 04/28/20 13:40:00 EDT, Height, 9... Start Date: 05/19/20 Stop Date: 11/15/20 Status: Ordered ProAir HFA 90 mcg/inh inhalation aerosol with adapter 2, puffs, Inhalation, Every 6 hours, PRN, # 1 each, Refills 5, Tot. Refills 5, Maintenance, 06/16/20 18:28:00 EST, Route to Pharmacy Electronically, [id number], [facility]/pharmacy#1972, 160.02, cm, 05/27/20 [...] Active *Joseph Resendez, Care Coord inator, ICP [phone](Confirmed) Active Dyan Streeter [facility] [place] 2Case Mushroom Cutter Parish Proctor ([facility]); Psychiatrist - Dr [...] BRCA1/2 negative,seen by genetics 6follow up at [facility] - Dr Richey. Multiple endoscopies, all normal. Other diagnosis is Non-ulcer dyspepsia Vital Signs Most recent to oldest [Reference Range]: 1 Height 160.02 cm (11/24/20 3:56 PM) Weight 88.8 kg (11/24/20 3:56 PM) Oxygen Saturation [94-100 %] 96 % (11/24/20 3:56 PM) Pulse Rate [55-90 bpm] 72 bpm (11/24/20 3:56 PM) Body Mass Index [18.5-24.99] 34.68 *>HHI* (11/24/20 3:56 PM) Blood Pressure [90-138/55-84 mm Hg] 142/ 90mm Hg *H* (11/24/20 3:56 PM) Respiratory Rate [16-30 br/min] 24 br/mi n (11/24/20 3:56 PM) Temperature [96.8-100.4 DegF] 96.9 DegF (11/24/20 3:56 PM) Mode of Delivery (Oxygen) Room air (11/24/20 3:56 PM) Blood pressure sites Arm, right (11/24/20 3:56 PM) Temperature Route Temporal (11/24/20 3:56 PM) Dry Weight 88.8 kg (11/24/20 3:56 PM) Weight Obtained Via Standing scale (11/24/20 3:56 PM) Dry Weight Obtained Via Standing scale (11/24/20 3:56 PM) Social History Social History Type Response Smoking Status Never smoker entered on: 02/07/14 Sex Female
--- OUTSIDE RECORDS SUMMARY | 2024-04-05 15:23 | XMS_ITS | Continuity of Care Document ---
Author Organization [facility] Address [address] [place] [address]- Care Team Providers Care Fern Picker Name Role Phone Mitch Lopez Primary Care Physician [facility] Date[facility]s): 08/07/23 - 09/06/23 [facility] [address] [place], [place] [address] Allergies, Adverse Reactions, Alerts Substance Reaction Severity [...] 18 07/18/06 Given 1Admin Note: Administered at [facility] on [facility] in [place]. 2Location History: [facility] pharmacy 3Result Comment: [06/27/2014] PT HAD AT [facility] 4Admin Note: VIS GIVEN VIS DATE 01/30/2012 5Admin Note: flulaval vis given vis date 02/22/2011 6Admin Note: vis given 03/09/10 7Result Comment: Received at [facility] on [facility] 8Admin Note: VIS given 9Admin [...] opioid drug. Start Date: 09/14/22 Status: Ordered [facility] MELATONIN 3 MG TABLET [facility] MELATONIN 3 MG TABLET, 1, tablet, By Mouth, Daily at bedtime, # 30 tablet, 3 Refills, Maintenance, 03/31/23 18:55:00 EDT, 161, cm, 03/29/23 14:07:00 EDT, Height, 85, kg, 09/16/22 6:46:00 EST, DryWeight Start Date: 03/31/23 Status: Ordered diclofenac 1% topical gel 1 application, Topically, 4 times a day, PRN NEEDED, MODERATE PAIN., # 100 Gm, 3 Refills, Maintenance, 08/28/23 14:07:00 EST, [facility]/pharmacy #1972, 25, 1 application Topically 4 times a day,PRN: NEEDED,Instr:MODERATE PAIN., 161, cm, 08/16/23 11:00:... Start Date: 08/28/23 Status: Ordered hydrOXYzine hydrochloride 25 mg oral tablet 1 tablet, By Mouth, 2 times a day, PRN NEEDED FOR ANXIETY, # 60 tablet, 2 Refills, Maintenance, 06/09/23 19:43:00 EST, [facility] STORE 79246, 161, cm, 05/27/23 9:13:00 EDT, Height, 85, kg, 09/16/22 6:46:00 EST, Dry Weight Start Date: 06/09/23 Status: Ordered lidocaine 5% topical film 1 patch, Topically, Daily, PRN NEEDED FOR PAIN REMOVE AFTER 12 HOURS, # 30 patch, 1 Refills, Maintenance, 07/28/23 17:33:00 EST, [facility] STORE 96494, 30, APPLY 1 PATCH TOPICALLY DAILY NEEDED [...] tablet, 0 Refills, Maintenance, 03/31/23 18:55:00 EDT, [facility] STORE 79297, 161, cm, 03/29/23 14:07:00 EDT, Height, 85, [...] 10:54:00 EST, Aerosol, Route to Pharmacy Electronically, [id number], [facility], 161... Start Date: 07/05/23 Status: [...] Refills, Maintenance, 03/22/23 11:50:00 EDT, [facility], 161, cm, 03/20/23 17:26:00 EDT, Height, 85, [...] Confirmed Active OCD Confirmed Active *Joseph Resendez, Bioinformatician, ICP [phone] Confirmed Active 1Jantoinette Streeter [facility] [place] [facility] [place] 2Case Research Project Manager Parish Proctor ([facility]); Psychiatrist - [...] negative,seen by genetics 6follow up at [facility] GI - Dr Richey. Multiple endoscopies, all normal. Other diagnosis is Non-ulcer dyspepsia Social History Social History Type Response Smoking Status Never smoker entered on: 02/07/14 Sex Female Patient Care team information Care Team Personnel Name: Mitch Lopez Position: S PCO Associate Professional Member Role: PCP Address: Address: [address] [place] [address] [place] [address]- Care Team Related Persons Name: GABINO CASTANEDA Address: home [address] [place] [address] Name: JERROD BEAUCHAMP Address: [place], [place] Name: BRE MIRANDA Address: home [address] [place] [address] Name: ALEYDA BEE Address: home [address] [place] [address] Name: ALEYDA BEE Address: home [address] [place] [address] Name: ROMIE PUENTES Address: home [address] [place] [address]
--- OUTSIDE RECORDS SUMMARY | 2024-04-05 15:23 | XMS_ITS | Continuity of Care Document ---
Author Organization [facility] Address [address] [place] [address]- Care Team Providers Care Certified Physician Assistant Name Role Phone Mitch Lopez Primary Care Physician [facility] 11/13[facility]21 - 12/13/21 [facility] [address] [place] [address]- Attending Physician: Jana Mercado Admitting Physician: AdmJana leonardo Referring Physician: Admtr ArEdilson Allergies, Adverse Reactions, Alerts Substance Reaction Severity [...] Refuses 1Result Comment: Received at [facility] on [facility] [facility] [address] 2Admin Note: VIS given 3Admin Note: Administered at [facility] on [address] in [place]. 4Location History: [facility] pharmacy [...] 11:19:00 EDT, Route to Pharmacy Electronically, [facility]/pharmacy #1972, Partial fill upon patient request [...] Refills, Maintenance, 12/07/21 15:30:00 EDT, Capsule, [facility]/pharmacy #1972, Partial fill upon patient request [...] day, # 120 tablet, 2 Refills, [facility] STORE 76784, 160, cm, 11/22/21 10:23:00 EDT, Height, 88.2, [...] 09/07/21 11:12:00 EST, Route to Pharmacy Electronically, [id number], [facility]/pharmacy #1972, 160.02, cm, 09/07/21 10:18:00 EST, Height,... Start Date: 09/07/21 Stop Date: 09/02/22 Status: Ordered Spiriva Respimat 1.25 mcg/inh inhalation aerosol 2 PUFFS INHALATION ONCE A DAY 30 DAYS Start Date: 05/05/21 Status: Ordered Spiriva Respimat 1.25 mcg/inh inhalation aerosol 2 puffs, Inhalation, Daily, # 1 each, 11 Refills, Maintenance, 09/07/21 11:12:00 EST, [facility]/pharmacy #1972, Partial fill upon patient request [...] Soft Stop, 10/07/20 9:06:00 EST, [facility]/pharmacy #1972, Partial fill upon patient request [...] 17:59:00 EST, Aerosol, Route to Pharmacy Electronically, [id number], [facility]/pharmacy #1972, 160... Start Date: 09/08/21 Status: Ordered Tessalon Perles 100 mg oral capsule 1 capsule = 100 mg, By Mouth, 3 times a day, PRN Cough, # 20 capsule, 0 Refills, Maintenance, 09/16/21 15:25:00 EST, [facility]/pharmacy #1972, Partial fill upon patient request if the prescription is for aschedule II opioid drug., 160.02, cm, 09/16/21 14:3... Start Date: 09/16/21 Status: Ordered Tessalon Perles 100 mg oral capsule 1 capsule = 100 mg, By Mouth, 3 times a day, PRN as needed for cough, for 7 days, # 21 capsule, 0 Refills, Acute 12/14/21 15:30:00 EDT, 12/07/21 15:30:00 EDT, Capsule, [facility]/pharmacy #1972, Partial fill upon patient request if the prescription is for a... Start Date: 12/07/21 Stop Date: 12/14/21 Status: Ordered verapamil 180 mg oral capsule, extended release 1 capsule, By Mouth, Daily, # 30 capsule, 5 Refills, [facility] STORE 61736, 160.02, cm, 07/05/21 10:30:00EST, Height, 85, kg, [...] Active *Joseph Resendez, Care Coord inator, ICP [phone](Confirmed) Active 1Jantoinette Streeter [facility] [place] 2Case Financial Services Director Parish [place] ([facility]); Psychiatrist - Dr Konstantin [...]
--- OUTSIDE RECORDS SUMMARY | 2024-04-05 15:23 | XMS_ITS | Continuity of Care Document ---
Author Organization [facility] Address [address] [place] [address]- Care Team Providers Care Folder Seamer Automatic Name Role Phone Mitch Lopez Primary Care Physician [phone] [facility]): 12/09/21 - 01/08/22 [facility] [address] [place] [address]- Allergies, Adverse Reactions, Alerts Substance Reaction Severity [...] Refuses 1Admin Note: Administered at [facility] on [facility] in [place]. 2Location History: [facility] pharmacy 3Result Comment: [06/27/2014] PT HAD AT [facility] 4Admin Note: VIS GIVEN VIS DATE 01/30/2012 5Admin Note: flulaval vis given vis date 02/22/2011 6Admin Note: vis given 03/09/10 7Result Comment: Received at [facility] on [facility] 8Admin Note: VIS given 9Admin [...] # 120 tablet, 2 Refills, [facility] STORE 58883, 160, cm, 11/22/21 10:23:00 EDT, Height, 88.2, [...] 01/03/22 11:58:00 EDT, Route to Pharmacy Electronically, [id number], [facility]/pharmacy #1972, 160, cm, 01/03/22 11:03:00 [...] 11:56:00 EDT, Aerosol, Route to Pharmacy Electronically, [id number], [facility], 160... Start Date: 01/03/22 Status: Ordered Tessalon Perles 100 mg oral capsule 1 capsule = 100 mg, By Mouth, 3 times a day, PRN Cough, # 20 capsule, 0 Refills, Maintenance, 09/16/21 15:25:00 EST, [facility]/pharmacy #1972, Partial fill upon patient request if the prescription is for aschedule II opioid drug., 160.02, cm, 09/16/21 14:3... Start Date: 09/16/21 Status: Ordered verapamil 180 mg oral capsule, extended release 1 capsule, By Mouth, Daily, # 30 capsule, 5 Refills, [facility], 160.02, cm, 07/05/21 10:30:00EST, Height, 85, kg, [...] Active OCD(Confirmed) Active *Joseph Resendez, Care Coord [facility], [facility] [phone](Confirmed) Active 1Jantoinette Streeter [facility] [place] 2Case Bottling Line Attendant Parish Proctor ([facility]); Psychiatrist - Dr Konstantin Narvaez 3admitted at adult partial hospitalization program (adult intensive short term out-pt psychiatric program). 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 BRCA1/2 negative,seen by genetics 6follow up at [facility] GI - Dr Desilets. Multiple endoscopies, all normal. Other diagnosis is Non-ulcer dyspepsia Social History Social History Type Response Smoking Status Never smoker entered on: 02/07/14 Sex Female
--- OUTSIDE RECORDS SUMMARY | 2024-04-05 15:23 | XMS_ITS | Continuity of Care Document ---
Author Organization [facility] Address [address] [place] [address]- Care Team Providers Care Mechanical Systems Design Engineer Name Role Phone Mitch Lopez Primary Care Physician [facility] 12/14/23 - 01/13/24 [facility] [address] [place], [place] [phone] Allergies, Adverse Reactions, Alerts Substance Reaction Severity [...] 18 07/18/06 Given 1Admin Note: Administered at [facility] on [facility] in [place]. 2Location History: [facility] pharmacy 3Result Comment: [06/27/2014] PT HAD AT [facility] 4Admin Note: VIS GIVEN VIS DATE 01/30/2012 5Admin Note: flulaval vis given vis date 02/22/2011 6Admin Note: vis given 03/09/10 7Result Comment: Received at [facility] on [facility] 8Admin Note: VIS given 9Admin Note: [...] each, 11 Refills, Maintenance, 10/23/23 12:15:00 EDT, [facility]/pharmacy #1972, Partial fill upon patient [...] Gm, 3 Refills, Maintenance, 08/28/23 14:07:00 EST, [facility]/pharmacy #1972, 25, 1 application Topically 4 times a day,PRN: NEEDED,Instr:MODERATE PAIN., 161, cm, 08/16/23 11:00:... Start Date: 08/28/23 Status: Ordered hydrOXYzine hydrochloride 25 mg oral tablet 1 tablet, By Mouth, 2 times a day, PRN NEEDED FOR ANXIETY, # 60 tablet, 2 Refills, Maintenance, 10/17/23 11:01:00 EDT, [facility] STORE 82842, 161, cm, 09/29/23 11:18:00 EST, Height, 82.1, [...] 12/14/23 15:09:00 EDT, Route to Pharmacy Electronically, [facility]/pharmacy #1972, Partial fill upon patien... Start Date: 12/14/23 Status: Ordered nabumetone 500 mg oral tablet 1 tablet, By Mouth, 2 times a day, TAKE WITH FOOD., # 60 tablet, 0 Refills, Maintenance, 03/31/23 18:55:00 EDT, [facility] STORE 33917, 161, cm, 03/29/23 14:07:00 EDT, Height, 85, [...] Confirmed Active OCD Confirmed Active *Joseph Resendez, [employer] Teacher, ICP [phone] Confirmed Active 1Jantoinette Streeter [facility]iat[facility] [place] 2Case Senior Technical Program Manager Parish Proctor ([facility]); Psychiatrist - Dr Konstantin Narvaez [...] Professional Member Role: PCP Address: Address: [address] [place] [address] [place] [address]- Care Team Related Persons Name: GABINO CASTANEDA Address: home [address] [place] [address] Name: JERROD BEAUCHAMP Address: [place], [place] Name: BRE MIRANDA Address: [address] [place] [address] Name: ALEYDA BEE Address: home [address] [place] [address] Name: ALEYDA BEE Address: home [address] [place] [address] Name: ROMIE PUENTES Address: home [address] [place] [address]
--- OUTSIDE RECORDS SUMMARY | 2024-04-05 15:23 | XMS_ITS | Continuity of Care Document ---
Author Organization [facility] Address [address] [place] [address]- Care Team Providers Care Commissions Analyst Name Role Phone Mitch Lopez Primary Care Physician [facility]21 - 01/13/22 [facility] [address] [place] [address]- Attending Physician: Mitch Lopez Admitting Physician: Mitch [...] Administered at [facility] on [address] in [place]. 2Location History: [facility] pharmacy 3Result Comment: [06/27/2014] PT HAD AT [facility] 4Admin Note: VIS GIVEN VIS DATE 01/30/2012 5Admin Note: flulaval vis given vis date 02/22/2011 6Admin Note: vis given 03/09/10 7Result Comment: Received at [facility] on [facility] 8Admin Note: VIS given 9Admin Note: [...] # 120 tablet, 2 Refills, [facility] STORE 56133, 160, cm, 11/22/21 10:23:00 EDT, Height, 88.2, [...] 01/03/22 11:58:00 EDT, Route to Pharmacy Electronically, [id number], [facility]/pharmacy #1972, 160, cm, 01/03/22 11:03:00 EDT, Height, 88... Start Date: 01/03/22 Stop Date: 12/29/22 Status: Ordered Spiriva Respimat 1.25 mcg/inh inhalation aerosol 2 puffs, Inhalation, Daily, # 1 each, 11 Refills, Maintenance, 01/03/22 11:57:00 EDT, [facility]/pharmacy #1972, Partial fill upon patient [...] Soft Stop, 10/07/20 9:06:00 EST, [facility]/pharmacy #1972, Partial fill upon patient request if the prescription is for a schedule II opioid drug., 160.... Start Date: 10/07/20 Status: Ordered Symbicort 160mcg/4.5mcg Inhaler 2, puffs, Inhalation, 2 times a day, rinse mouth and throat after use, # 10.2 Gm, Refills 11, Tot. Refills 11, Maintenance, 01/03/22 11:56:00 EDT, Aerosol, Route to Pharmacy Electronically, [id number], [facility], 160... Start Date: 01/03/22 Status: [...] # 30 capsule, 5 Refills, [facility], 160.02, cm, 07/05/21 10:30:00EST, Height, 85, kg, [...] Resendez, [facility], ICP [phone](Confirmed) Active 1Jantoinette Streeter [facility] [place] 2Case Evaporator Operator Molasses Parish Proctor ([facility]); Psychiatrist - Dr [...] BRCA1/2 negative,seen by genetics 6follow up at [facility] GI - Dr Richey. Multiple endoscopies, all normal. Other diagnosis is Non-ulcer dyspepsia Social History Social History Type Response Smoking Status Never smoker entered on: 02/07/14 Sex Female
--- OUTSIDE RECORDS SUMMARY | 2024-04-05 15:23 | XMS_ITS | Continuity of Care Document ---
Author Organization [facility]sur[facility] y Address [address] [place] [address] [address], [address] [place] [address]- Care Team Providers Care Associate Professor Of Surgery Name Role Phone Mitch Lopez Primary Care Physician [phone] Encounter [facility] Date(s): 07/26/19 - 10/04/19 [facility] Neuro[facility] [address] [place] [address], [address] [place] [address]- [facility] Attending Physician: Deysi Gomez DO Referring Physician: [...] Patient Refuses 1Admin Note: Administered at [facility] on [address] in [place]. 2Location History: [facility] pharmacy [...] 07/25/19 14:29:00 EST, Route to Pharmacy Electronically, [id number], [facility]/pharmacy#1972, 158, cm, 07/25/19 13:55:00 EST, Height, [...] Refills, Maintenance, 08/01/19 15:54:00 EST, ER Capsule, [facility]/pharmacy #1972, Patient lost medication. Please fill this [...] Chronic migraine(Confirmed) Active OCD(Confirmed) Active 1Jantoinette Streeter [facility] Psychiatry [place] 2Case Marketing Instructor Parish Proctor ([facility]); Psychiatrist [...]
--- OUTSIDE RECORDS SUMMARY | 2024-04-05 15:23 | XMS_ITS | Continuity of Care Document ---
Author Organization [facility] Adult Medicine Address [address] [place] [address]- Care Team Providers Care Insurance Representative Name Role Phone Mitch Lopez Primary Care Physician [phone] [facility] 10/12/21 - 11/11/21 [facility] Adult [facility] [address] [place] [address]- Allergies, Adverse Reactions, Alerts Substance Reaction Severity [...] Given Patient Refuses 1Result Comment: Received at [facility] on [address] 2Admin Note: VIS given 3Admin Note: Administered at [facility] on [address] in [place]. 4Location History: [facility] pharmacy 5Result Comment: [06/27/2014] PT HAD AT [facility] 6Admin Note: VIS GIVEN VIS DATE [...] 10/14/21 18:29:00 EDT, Route to Pharmacy Electronically, [facility]/pharmacy #1972, Partial fill upon patient request if the prescription is for a sched... Start Date: 10/14/21 Stop Date: 10/19/21 Status: Ordered buPROPion 150 mg/24 hours (XL) oral tablet, extended release TAKE 1 TABLET BY MOUTH EVERY DAY Start Date: 05/05/21 Status: Ordered [facility] MELATONIN 3 MG TABLET [facility] MELATONIN 3 MG TABLET, 1, tablet, By [...] A DAY, # 120 tablet, 2 Refills, [facility] 10998, 160.02, cm, 07/05/21 10:30:00 EST, Height, 85, kg, 03/11/21 17:07:00 EDT, Dry Weight Start Date: 08/22/21 Status: Ordered lidocaine 4% topical film 1 patch, Topically, 2 times a day, for 7 days, # 14 patch, 0 Refills, Acute 11/15/21 19:30:00 EDT, 11/08/21 19:30:00 EDT, Film, [facility]/pharmacy #1972, Partial fill upon patient request if the prescription is for a schedule II opioid drug., 1 patch Topica... Start Date: 11/08/21 Stop Date: 11/15/21 Status: Ordered meloxicam 7.5 mg oral tablet 1 tablet, By Mouth, Daily, FOR ARTHRITIS PAIN. TAKE WITH FOOD, # 30 tablet, 1 Refills, [facility] 56812, 160.02, cm, 09/16/21 14:31:00 EST, Height, 85, [...] 09/07/21 11:12:00 EST, Route to Pharmacy Electronically, [id number], [facility]/pharmacy #1972, 160.02, cm, 09/07/21 10:18:00 EST, Height,... Start Date: 09/07/21 Stop Date: 09/02/22 Status: Ordered Spiriva Respimat 1.25 mcg/inh inhalation aerosol 2 PUFFS INHALATION ONCE A DAY 30 DAYS Start Date: 05/05/21 Status: Ordered Spiriva Respimat 1.25 mcg/inh inhalation aerosol 2 puffs, Inhalation, Daily, # 1 each, 11 Refills, Maintenance, 09/07/21 11:12:00 EST, [facility]/pharmacy #1972, Partial fill upon patient request if [...] 1 Refills, Soft Stop, 10/07/20 9:06:00 EST, [facility]/pharmacy #1972, Partial fill upon patient request if [...] 17:59:00 EST, Aerosol, Route to Pharmacy Electronically, [id number], [facility]/pharmacy #1972, 160... Start Date: 09/08/21 Status: Ordered Tessalon Perles 100 mg oral capsule 1 capsule = 100 mg, By Mouth, 3 times a day, PRN Cough, # 20 capsule, 0 Refills, Maintenance, 09/16/21 15:25:00 EST, [facility]/pharmacy #1972, Partial fill upon patient request if the prescription is for aschedule II opioid drug., 160.02, cm, 09/16/21 14:3... Start Date: 09/16/21 Status: Ordered verapamil 180 mg oral capsule, extended release 1 capsule, By Mouth, Daily, # 30 capsule, 5 Refills, [facility], 160.02, cm, 07/05/21 10:30:00EST, Height, 85, kg, [...] Active *Lukisha Mal, Care Coord avril, ICP [phone](Confirmed) Active 1Jantoinette Streeter [facility] [place] [facility] [place] 2Case Multi Punch Operator Parish Proctor ([facility]); Psychiatrist - [...]
--- OUTSIDE RECORDS SUMMARY | 2024-04-05 15:23 | XMS_ITS | Continuity of Care Document ---
Author Organization [facility] Address [address] [place] [address]- Care Team Providers Care Toby Maker Name Role Phone Mitch Lopez Primary Care Physician [facility] 12/06/19 - 01/05/20 [facility] [address] [place] [address]- [facility] Attending Physician: Jana Mercado Admitting [...] Refuses 1Admin Note: Administered at [facility] on [address] in [place]. 2Location History: [facility] pharmacy 3Result Comment: [06/27/2014] PT [...] 07/25/19 14:29:00 EST, Route to Pharmacy Electronically, [id number], [facility]/pharmacy#1972, 158, cm, 07/25/19 13:55:00 EST, [...] DAYS, # 30 capsule, 11 Refills, Maintenance, [facility] STORE 26705, 160.02, cm, 10/11/19 15:24:00 EDT, Height, 85.91, [...] Active *Joseph Resendez, Care Coord inator, ICP [phone](Confirmed) Active 1Jantoinette Streeter [facility] [place] [facility] [place] 2Case Product Sales Engineer Parish Proctor ([facility]); Psychiatrist - Dr Konstantin Narvaez 3admitted [...]
--- OUTSIDE RECORDS SUMMARY | 2024-04-05 15:23 | XMS_ITS | Continuity of Care Document ---
Author Organization [facility] Address [address] [place] [address]- Care Team Providers Care Pattern Chain Builder Name Role Phone Mitch Lopez Primary Care Physician Encounter [facility] Date(s): 04/25/20 - 05/25/20 [facility] [address] [place] [address]- [facility] Attending Physician: Jana Mercado Admitting Physician: [...] Given Patient Refuses 1Admin Note: Administered at [facility] on [facility] in [place]. 2Location History: [facility] pharmacy 3Result Comment: [06/27/2014] PT HAD AT [facility] 4Admin Note: VIS GIVEN VIS DATE 01/30/2012 [...] Gm, 2 Refills, Maintenance, 03/04/20 12:12:00 EDT, [facility]/pharmacy #1972, 160.02, cm, 03/04/20 [...] 05/19/20 16:20:00 EDT, Route to Pharmacy Electronically, [id number], [facility]/pharmacy#1972, 160.02, cm, 04/28/20 13:40:00 [...] 30 capsule, 11 Refills, Maintenance, [facility], 160.02, cm, 10/11/19 15:24:00 EDT, Height, 85.91, [...] Active *Joseph Resendez, [facility], [facility] [phone](Confirmed) Active Dyan Streeter [facility] Psychiatry [place] 2Case Roll Up Operator Parish Proctor ([facility]); Psychiatrist - [...]
--- OUTSIDE RECORDS SUMMARY | 2024-04-05 15:23 | XMS_ITS | Continuity of Care Document ---
Author Organization [facility] Address [address] [place] [address]- Care Team Providers Care Artificial Flowers Dyer Name Role Phone Mitch Lopez Primary Care Physician [phone] [facility]s): 02/03/21 - 03/05/21 [facility] [address] [place], [place] [address] Allergies, Adverse Reactions, Alerts Substance [...] Patient Refuses 1Result Comment: Received at [facility] on [address] 2Admin Note: VIS given 3Admin Note: Administered at [facility] on [address] in [place]. 4Location History: [facility] pharmacy 5Result Comment: [06/27/2014] PT HAD AT [facility] 6Admin Note: VIS GIVEN VIS [...] Refills, Maintenance, 12/04/20 17:24:00 EDT, Tablet, [facility]/pharmacy #1972, Partial fill upon patient [...] 02/07/21 10:55:00 EDT, Route to Pharmacy Electronically, [facility]/pharmacy #1972, Partial fill upon patient [...] 0 Refills, Maintenance, 02/07/21 10:54:00 EDT, Gel, [facility]/pharmacy #1972, Partial fill upon patient [...] Gm, 0 Refills, Maintenance, 08/08/20 15:21:00 EST, [place], [facility], Partial fill upon patient request [...] 0 Refills, Maintenance, 02/04/21 16:29:00 EDT, Tablet, [facility], Partial fill upon [...] 05/19/20 16:20:00 EDT, Route to Pharmacy Electronically, [id number], [facility], 160.02, cm, 04/28/20 13:40:00 EDT, Height, 9... Start Date: 05/19/20 Stop Date: 11/15/20 Status: Ordered ProAir HFA 90 mcg/inh inhalation aerosol with adapter 2, puffs, Inhalation, Every 6 hours, PRN, # 1 each, Refills 5, Tot. Refills 5, Maintenance, 06/16/20 18:28:00 EST, Route to Pharmacy Electronically, [id number], [facility]/pharmacy#1972, 160.02, cm, 05/27/20 13:10:00 EDT, [...] Refills, Soft Stop, 10/07/20 9:06:00 EST, [facility]/pharmacy #1972, Partial fill upon patient request if the prescription is for a schedule II opioid drug., 160.... Start Date: 10/07/20 Status: Ordered verapamil 180 mg oral capsule, extended release 1 capsule, By Mouth, Daily, # 30 capsule, 5 Refills, Maintenance, 02/04/21 9:28:00 EDT, [facility], 160.02, cm, 01/26/21 9:12:00 EDT, Height, 88.8, [...] Active *Joseph Resendez, Care Coord avril, ICP [phone](Confirmed) Active 1Jantoinette Streeter [facility] [place] [facility] [place] 2Case Conference Specialist Parish Esthela ([facility]); Psychiatrist - Dr Konstantin [...] BRCA1/2 negative,seen by genetics 6follow up at [facility] GI - Dr Richey. Multiple endoscopies, all normal. Other diagnosis is Non-ulcer dyspepsia Social History Social History Type Response Smoking Status Never smoker entered on: 02/07/14 Sex Female
--- OUTSIDE RECORDS SUMMARY | 2024-04-05 15:23 | XMS_ITS | Continuity of Care Document ---
Author Organization [facility] Adult [facility] Address [address] [place] [address]- Care Team Providers Care Area Manager Name Role Phone Mitch Lopez Primary Care Physician [facility] 10/05/21 - 11/04/21 [facility] [address] [place], [place] [address] Allergies, Adverse Reactions, Alerts Substance [...] Patient Refuses 1Result Comment: Received at [facility] on [address] 2Admin Note: VIS given 3Admin Note: Administered at [facility] on [facility] in [place]. 4Location History: [facility] pharmacy 5Result Comment: [06/27/2014] PT HAD AT [facility] 6Admin Note: VIS GIVEN [...] 18:29:00 EDT, Route to Pharmacy Electronically, [facility]/pharmacy #1972, Partial fill upon patient request if the prescription is for a sched... Start Date: 10/14/21 Stop Date: 10/19/21 Status: Ordered buPROPion 150 mg/24 hours (XL) oral tablet, extended release TAKE 1 TABLET BY MOUTH EVERY DAY Start Date: 05/05/21 Status: Ordered [facility] MELATONIN 3 MG TABLET [facility] MELATONIN 3 MG TABLET, 1, tablet, By Mouth, Daily at bedtime, # 30 tablet, 2 Refills, Maintenance, 02/17/21 19:34:00 EDT, 160.02, cm, 02/16/21 17:20:00 EDT, Height, 88.8, kg, 11/24/20 15:58:00 EDT, Dry Weight Start Date: 02/17/21 Status: Ordered Estrace Vaginal Cream 0.1 mg/g = 1 Gm, Vaginally, Every Monday and , # 42.5 Gm, 2 Refills, Maintenance, 09/08/20 14:57:00EST, [facility]/pharmacy #1972, 160.02, cm, 07/29/20 16:36:00 EST, [...] A DAY, # 120 tablet, 2 Refills, [facility] STORE 50383, 160.02, cm, 07/05/21 10:30:00 EST, Height, 85, kg, 03/11/21 17:07:00 EDT, Dry Weight Start Date: 08/22/21 Status: Ordered meloxicam 7.5 mg oral tablet 1 tablet, By Mouth, Daily, FOR ARTHRITIS PAIN. TAKE WITH FOOD, # 30 tablet, 1 Refills, [facility] STORE 14870, 160.02, cm, 09/16/21 14:31:00 EST, Height, 85, [...] 09/07/21 11:12:00 EST, Route to Pharmacy Electronically, [id number], [facility]/pharmacy #1972, 160.02, cm, 09/07/21 10:18:00 EST, Height,... Start Date: 09/07/21 Stop Date: 09/02/22 Status: Ordered Spiriva Respimat 1.25 mcg/inh inhalation aerosol 2 PUFFS INHALATION ONCE A DAY 30 DAYS Start Date: 05/05/21 Status: Ordered Spiriva Respimat 1.25 mcg/inh inhalation aerosol 2 puffs, Inhalation, Daily, # 1 each, 11 Refills, Maintenance, 09/07/21 11:12:00 EST, [facility]/pharmacy #1972, Partial fill upon patient request [...] Refills, Soft Stop, 10/07/20 9:06:00 EST, [facility]/pharmacy #1972, Partial fill upon patient request [...] 17:59:00 EST, Aerosol, Route to Pharmacy Electronically, [id number], [facility], 160... Start Date: 09/08/21 Status: [...] # 30 capsule, 5 Refills, [facility], 160.02, cm, 07/05/21 10:30:00EST, Height, 85, kg, [...] *Joseph Resendez, Care Coord [facility], [facility] [phone](Confirmed) Active Dyan Streeter [facility] 2Case Customer Retention Specialist Parish Proctor ([facility]); Psychiatrist - Dr Konstantin Narvaez 3admitted at adult partial hospitalization program (adult intensive short term out-pt psychiatric program). 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 BRCA1/2 negative,seen by genetics 6follow up at [facility] GI - Dr Richey. Multiple endoscopies, all normal. Other diagnosis is Non-ulcer dyspepsia Social History Social History Type Response Smoking Status Never smoker entered on: 02/07/14 Sex Female
--- OUTSIDE RECORDS SUMMARY | 2024-04-05 15:23 | XMS_ITS | Continuity of Care Document ---
Author Organization [facility] Address [address] [place] [address]- Care Team Providers Care Edge Blacker Name Role Phone Mitch Lopez Primary Care Physician [facility] 07/21/21 - 09/08/21 [facility] [address] [place] [address]- Attending Physician: Armani Taylor MD Admitting Physician: Armani Taylor MD Allergies, Adverse Reactions, Alerts Substance Reaction [...] 1Result Comment: Received at [facility] on [address] 2Admin Note: VIS given 3Admin Note: Administered at [facility] on [address] in [place]. 4Location History: [facility] pharmacy 5Result Comment: [06/27/2014] [...] 42.5 Gm, 2 Refills, Maintenance, 09/08/20 14:57:00EST, [facility]/pharmacy #1972, 160.02, cm, 07/29/20 16:36:00 EST, [...] A DAY, # 120 tablet, 2 Refills, [facility] ST[facility] 36121, 160.02, cm, 07/05/21 10:30:00 EST, Height, 85, kg, 03/11/21 17:07:00 EDT, Dry Weight Start Date: 08/22/21 Status: Ordered meloxicam 7.5 mg oral tablet 1 tablet = 7.5 mg, By Mouth, Daily, for arthritis pain take with food, # 30 tablet, 0 Refills, Maintenance, 09/07/21 11:08:00 EST, [facility]/pharmacy #1972, Partial fill upon patient request if the prescription is for a schedule II opioid drug., 160.02, cm... Start Date: 09/07/21 Status: Ordered montelukast 10 mg oral tablet TAKE 1 TABLET BY MOUTH EVERY DAY IN THE EVENING Start Date: 05/05/21 Status: Ordered ProAir HFA 90 mcg/inh inhalation aerosol with adapter 2, puffs, Inhalation, Every 6 hours, PRN, # 1 each, Refills 11, Tot. Refills 11, Maintenance, 09/07/21 11:12:00 EST, Route to Pharmacy Electronically, [id number], [facility]/pharmacy #1972, 160.02, cm, 09/07/21 10:18:00 EST, Height,... Start Date: 09/07/21 Stop Date: 09/02/22 Status: Ordered Spiriva Respimat 1.25 mcg/inh inhalation aerosol 2 PUFFS INHALATION ONCE A DAY 30 DAYS Start Date: 05/05/21 Status: Ordered Spiriva Respimat 1.25 mcg/inh inhalation aerosol 2 puffs, Inhalation, Daily, # 1 each, 11 Refills, Maintenance, 09/07/21 11:12:00 EST, [facility]/pharmacy #1972, Partial fill upon [...] 17:59:00 EST, Aerosol, Route to Pharmacy Electronically, [id number], [facility], 160... Start Date: 09/08/21 Status: Ordered verapamil 180 mg oral capsule, extended release 1 capsule, By Mouth, Daily, # 30 capsule, 5 Refills, [facility] ST[facility] 70111, 160.02, cm, 07/05/21 10:30:00EST, Height, 85, kg, [...] Active *Joseph Resendez, Care Coord inator, ICP [phone](Confirmed) Active 1Jantoinette Streeter [facility] Psychiatry [place] 2Case Cotton Ball Bagger Parish Proctor ([facility]); Psychiatrist - [...] by genetics 6follow up at [facility] GI - Dr Richey. Multiple endoscopies, all normal. Other diagnosis is Non-ulcer dyspepsia Social History Social History Type Response Smoking Status Never smoker entered on: 02/07/14 Sex Female
--- OUTSIDE RECORDS SUMMARY | 2024-04-05 15:23 | XMS_ITS | Continuity of Care Document ---
Author Organization [facility] Address [address] [place] [address]- Care Team Providers Care Kindergartner Name Role Phone Mitch Lopez Primary Care Physician [facility] 02[facility]20 - 03/12/20 [facility] [address] [place] [address]- [facility] Allergies, Adverse Reactions, Alerts Substance Reaction Severity [...] [facility] on [address] in [place]. 2Location History: [facility] pharmacy 3Result Comment: [06/27/2014] PT HAD AT [facility] 4Admin Note: VIS GIVEN [...] Gm, 2 Refills, Maintenance, 03/04/20 12:12:00 EDT, [facility]/pharmacy #1972, 160.02, cm, 03/04/20 11:50:00 [...] 03/12/20 7:19:00 EDT, Route to Pharmacy Electronically, [id number], [facility]/pharmacy #1972, 160.02, cm, 03/04/20 11:50:00 [...] capsule, 11 Refills, Maintenance, [facility] STORE 54969, 160.02, cm, 10/11/19 15:24:00 EDT, Height, 85.91, [...] Active Chronic migraine(Confirmed) Active OCD(Confirmed) Active *Joseph Resnedez, Care Coord inator, ICP [phone](Confirmed) Active 1Jantoinette Streeter [facility] Psychiatry [place] 2Case Bi Report Developer Parish Proctor ([facility]); Psychiatrist - Dr Konstantin Narvaez [...] negative,seen by genetics 6follow up at [facility] GI - Dr Richey. Multiple endoscopies, all normal. Other diagnosis is Non-ulcer dyspepsia Social History Social History Type Response Smoking Status Never smoker entered on: 02/07/14 Sex Female
--- OUTSIDE RECORDS SUMMARY | 2024-04-05 15:23 | XMS_ITS | Continuity of Care Document ---
Author Organization [facility] Address [address] [place] [address]- Care Team Providers Care Supervisor Pipeline Name Role Phone Mitch Lopez Primary Care Physician [phone] [facility]12[facility]22 - 01/11/23 [facility] [address] [place] [id number] Allergies, Adverse Reactions, Alerts [...] Given Patient Refuses 1Admin Note: Administered at [facility] on [facility] in [place]. 2Location History: [facility] 3Result Comment: [06/27/2014] PT HAD AT [facility] 4Admin Note: VIS GIVEN VIS DATE 01/30/2012 5Admin Note: flulaval vis given vis date 02/22/2011 6Admin Note: vis given 03/09/10 7Result Comment: Received at [facility] on [facility] 8Admin Note: VIS given 9Admin Note: [...] patch, 1 Refills, Maintenance, 07/07/22 18:54:00 EST, [facility] STORE 39046, 30, APPLY 1 PATCH TOPICALLY DAILY NEEDED [...] 10/31/22 16:24:00 EDT, Route to Pharmacy Electronically, [facility]/pharmacy #1972, Partial fill upon patien... Start [...] tablet, 11 Refills, Maintenance, 07/12/22 14:20:00 EST, [facility]/pharmacy #1972, Partial fill upon patient request if the prescription is for a schedule II opioid drug., 160, cm, 07/12/22 13:43:00 EST, Height, 88.2,... Start Date: 07/12/22 Status: Ordered Spiriva Respimat 1.25 mcg/inh inhalation aerosol 2 puffs, Inhalation, Daily, # 1 each, 11 Refills, Maintenance, 11/21/22 12:15:00 EDT, [facility]/pharmacy #1972, Partial fill upon patient request if the prescription is for a schedule II opioid drug., 161,cm, 10/31/22 14:08:00 EDT, Height, 85, kg, 09/16/22... Start Date: 11/21/22 Status: Ordered Symbicort 160mcg/4.5mcg Inhaler 2, puffs, Inhalation, 2 times a day, rinse mouth and throat after use, # 10.2 Gm, Refills 11, Tot. Refills 11, Maintenance, 11/24/22 19:11:00 EDT, Aerosol, Route to Pharmacy Electronically, [id number], [facility]/pharmacy #1972, 161... Start Date: 11/24/22 Status: [...] Confirmed Active OCD Confirmed Active *Joseph Resendez, Director Data, ICP [phone] Confirmed Active 1Jantoinette Streeter [facility] 2Case Librarian Special Library [place] ([facility]); Psychiatrist - Dr Konstantin Narvaez [...] Associate Professional Member Role: PCP Address: Address: [address] [place] [address] [place] [address]- Care Team Related Persons Name: GABINO CASTANEDA Address: home [address] [place] [address] Name: JERROD BEAUCHAMP Address: [place], [place] Name: BRE MIRANDA Address: home [address] [place] [address] Name: ALEYDA BEE Address: home [address] [place] [address] Name: ALEYDA BEE Address: home [address] [place] [address] Name: ROMIE PUENTES Address: home [address] [place] [address]
--- OUTSIDE RECORDS SUMMARY | 2024-04-05 15:23 | XMS_ITS | Continuity of Care Document ---
Author Organization [facility] Address [address] [place] [address]- Care Team Providers Care Director Of Math Name Role Phone Mitch Lopez Primary Care Physician [facility]): 07/27/20 - 08/26/20 [facility] [address] [place] [address]- Allergies, Adverse Reactions, Alerts Substance Reaction Severity [...] Given Patient Refuses 1Result Comment: Received at [facility] on [address] 2Admin Note: VIS given 3Admin Note: Administered at [facility] on [address] in [place]. 4Location History: [facility] 5Result Comment: [06/27/2014] PT HAD AT [facility] 6Admin Note: VIS GIVEN VIS DATE [...] Gm, 0 Refills, Maintenance, 08/08/20 15:21:00 EST, [place], [facility]/pharmacy #1972, Partial fill upon [...] 07/15/20 20:01:00 EST, Route to Pharmacy Electronically, [facility]/pharmacy [...] 05/19/20 16:20:00 EDT, Route to Pharmacy Electronically, [id number], [facility]/pharmacy#1972, 160.02, cm, 04/28/20 13:40:00 EDT, Height, 9... Start Date: 05/19/20 Stop Date: 11/15/20 Status: Ordered ProAir HFA 90 mcg/inh inhalation aerosol with adapter 2, puffs, Inhalation, Every 6 hours, PRN, # 1 each, Refills 5, Tot. Refills 5, Maintenance, 06/16/20 18:28:00 EST, Route to Pharmacy Electronically, [id number], [facility]/pharmacy#1972, 160.02, cm, 05/27/20 13:10:00 EDT, Height, [...] 30 capsule, 11 Refills, Maintenance, [facility], 160.02, cm, 10/11/19 15:24:00 EDT, Height, 85.91, [...] Active *Joseph Resendez, Care Coord inator, ICP [phone](Confirmed) Active Dyan Streeter [facility] [place] [facility] [place] 2Case Dehydrogenation Operator [place] ([facility]); Psychiatrist - Dr Konstantin Narvaez 3admitted at adult partial hospitalization program (adult intensive short term out-pt psychiatric program). 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 BRCA1/2 negative,seen by genetics 6follow up at [facility] GI - Dr Richey. Multiple endoscopies, all normal. Other diagnosis is Non-ulcer dyspepsia Social History Social History Type Response Smoking Status Never smoker entered on: 02/07/14 Sex Female
--- OUTSIDE RECORDS SUMMARY | 2024-04-05 15:23 | XMS_ITS | Continuity of Care Document ---
Author Organization [facility] Address [address], [address] Floor, [address] [place] [address]- Care Team Providers Care Credit Union Field Examiner Name Role Phone Mitch Lopez Primary Care Physician Encounter [facility] Date(s): 08/04/20 - 08/11/20 [facility] [address], [address], [address] [place] [address]- Encounter Diagnosis Headache, unspecified(Final) - Discharge Disposition: A-D/C Home Attending Physician: Francisco Rodrigues MD Admitting Physician: Francisco Rodrigues MD Referring Physician: Mitch Lopez Allergies, Adverse [...] Patient Refuses 1Result Comment: Received at [facility] on [facility] [facility] [address] 2Admin Note: VIS given 3Admin Note: Administered at [facility] on [facility] [address] in [place]. 4Location History: [facility] pharmacy [...] Gm, 0 Refills, Maintenance, 08/08/20 15:21:00 EST, [place], [facility], Partial fill upon patient request [...] for a... Start Date: 07/15/20 Status: Ordered Medrol 4 mg oral tablet 1 pack/packet, By Mouth, Daily, for 6 days, as directed on package labeling, # 21 tablet, 0 Refills, Acute 08/14/20 15:25:00 EST, 08/08/20 15:25:00 EST, Tablet, [facility]/pharmacy #1972, Partial fill upon patient request if the prescription is for a schedul... Start Date: 08/08/20 Stop Date: 08/14/20 Status: Ordered melatonin 3 mg oral tablet [...] 05/19/20 16:20:00 EDT, Route to Pharmacy Electronically, [id number], [facility]/pharmacy#1972, 160.02, cm, 04/28/20 13:40:00 EDT, Height, 9... Start Date: 05/19/20 Stop Date: 11/15/20 Status: Ordered ProAir HFA 90 mcg/inh inhalation aerosol with adapter 2, puffs, Inhalation, Every 6 hours, PRN, # 1 each, Refills 5, Tot. Refills 5, Maintenance, 06/16/20 18:28:00 EST, Route to Pharmacy Electronically, [id number], [facility]/pharmacy#1972, 160.02, cm, 05/27/20 13:10:00 EDT, Height, 9... Start Date: 06/16/20 Stop Date: 5/16/21 Status: Ordered Rollator Walker Rollator Walker, See [...] 30 capsule, 11 Refills, Maintenance, [facility], 160.02, cm, 10/11/19 15:24:00 EDT, Height, 85.91, [...] Active *Joseph Resendez, Care Coord inadavid, ICP [phone](Confirmed) Active 1Jantoinette Streeter [facility] 2Case Wet Silk [place] ([facility]); Psychiatrist - [...]
--- OUTSIDE RECORDS SUMMARY | 2024-04-05 15:23 | XMS_ITS | Continuity of Care Document ---
Author Organization [facility] Address [address] [place] [address]- Care Team Providers Care Hardening Machine Operator Helper Name Role Phone Mitch Lopez Primary Care Physician [facility]): 08/05/23 - 09/04/23 [facility] [address] [place], [place] [address] Attending Physician: Jana Mercado Admitting Physician: Jana [...] 07/18/06 Given 1Admin Note: Administered at [facility] on [facility] in [place]. 2Location History: [facility] pharmacy 3Result Comment: [06/27/2014] PT HAD AT [facility] 4Admin Note: VIS GIVEN VIS DATE 01/30/2012 5Admin Note: flulaval vis given vis date 02/22/2011 6Admin Note: vis given 03/09/10 7Result Comment: Received at [facility] on [facility] 8Admin Note: VIS given 9Admin [...] 3 Refills, Maintenance, 08/28/23 14:07:00 EST, [facility]/pharmacy #1972, 25, 1 application Topically 4 times a day,PRN: NEEDED,Instr:MODERATE PAIN., 161, cm, 08/16/23 11:00:... Start Date: 08/28/23 Status: Ordered hydrOXYzine hydrochloride 25 mg oral tablet 1 tablet, By Mouth, 2 times a day, PRN NEEDED FOR ANXIETY, # 60 tablet, 2 Refills, Maintenance, 06/09/23 19:43:00 EST, [facility], 161, cm, 05/27/23 9:13:00 EDT, Height, 85, kg, 09/16/22 6:46:00 EST, Dry Weight Start Date: 06/09/23 Status: Ordered lidocaine 5% topical film 1 patch, Topically, Daily, PRN NEEDED FOR PAIN REMOVE AFTER 12 HOURS, # 30 patch, 1 Refills, Maintenance, 07/28/23 17:33:00 EST, [facility], 30, APPLY 1 PATCH TOPICALLY DAILY NEEDED FOR PAIN REMOVE AFTER 12 HOURS, 161, cm, 07/20/23 10:04:00... Start Date: 07/28/23 Status: Ordered Lidoderm 5% film 1 patch, Topically, Daily, remove patches after 12 hours, # 30 patch, 0 Refills, Maintenance, 08/16/23 11:10:00 EST, [facility]/pharmacy #1972, [...] 0 Refills, Maintenance, 03/31/23 18:55:00 EDT, [facility] STORE 93059, 161, cm, 03/29/23 14:07:00 EDT, Height, 85, [...] 10:54:00 EST, Aerosol, Route to Pharmacy Electronically, [id number], [facility]/pharmacy #1972, 161... Start Date: 07/05/23 [...] Refills, Maintenance, 03/22/23 11:50:00 EDT, [facility], 161, cm, 03/20/23 17:26:00 EDT, Height, 85, [...] Confirmed Active OCD Confirmed Active *Joseph Resendez, Airfield Operations Specialist, [facility] [phone] Confirmed Active 1Jantoinette Streeter [facility] [place] 2Case Lead Software Test Engineer [place] Proctor ([facility]); Psychiatrist - Dr Konstantin Narvaez [...] negative,seen by genetics 6follow up at [facility] GI - Dr Richey. Multiple endoscopies, all normal. Other diagnosis is Non-ulcer dyspepsia Social History Social History Type Response Smoking Status Never smoker entered on: 02/07/14 Sex Female Patient Care team information Care Team Personnel Name: Mitch Lopez Position: [facility] PCO Associate Professional Member Role: PCP Address: Address: [address] [place] [address] [place] [address]- Care Team Related Persons Name: GABINO CASTANEDA Address: home [address] [place] [address] Name: JERROD BEAUCHAMP Address: [place], [place] Name: BRE MIRANDA Address: home [address] [place] [address] Name: ALEYDA BEE Address: home [address] [place] [address] Name: ALEYDA BEE Address: home [address] [place] [address] Name: ROMIE PUENTES Address: home [address] [place] [address]
--- OUTSIDE RECORDS SUMMARY | 2024-04-05 15:23 | XMS_ITS | Continuity of Care Document ---
Author Organization [facility] Address [address] [place] [address]- Care Team Providers Care Rail Director Name Role Phone Mitch Lopez Primary Care Physician [facility] Date[facility]s): 11/24/21 - 12/24/21 [facility] [address] [place] [address]- Allergies, Adverse Reactions, Alerts Substance Reaction Severity [...] Given Patient Refuses 1Admin Note: Administered at [facility] on [facility] in [place]. 2Location History: [facility] pharmacy 3Result Comment: [06/27/2014] PT HAD AT [facility] 4Admin Note: VIS GIVEN VIS DATE 01/30/2012 5Admin Note: flulaval vis given vis date 02/22/2011 6Admin Note: vis given 03/09/10 7Result Comment: Received at [facility] on [facility] 8Admin Note: VIS given 9Admin Note: [...] # 120 tablet, 2 Refills, [facility], 160, cm, 11/22/21 10:23:00 EDT, Height, 88.2, [...] 09/07/21 11:12:00 EST, Route to Pharmacy Electronically, [id number], [facility]/pharmacy #1972, 160.02, cm, 09/07/21 10:18:00 EST, Height,... Start Date: 09/07/21 Stop Date: 09/02/22 Status: Ordered Spiriva Respimat 1.25 mcg/inh inhalation aerosol 2 puffs, Inhalation, Daily, # 1 each, 11 Refills, Maintenance, 09/07/21 11:12:00 EST, [facility], Partial fill upon patient [...] 17:59:00 EST, Aerosol, Route to Pharmacy Electronically, [id number], [facility], 160... Start Date: 09/08/21 Status: [...] # 30 capsule, 5 Refills, [facility], 160.02, cm, 07/05/21 10:30:00EST, Height, 85, kg, [...] Resendez, Care Coord [facility], ICP [phone](Confirmed) Active 1Jantoinette Streeter [facility] [place] 2Case Utility Operator [place] ([facility]); Psychiatrist - Dr Konstantin Narvaez [...]
--- OUTSIDE RECORDS SUMMARY | 2024-04-05 15:24 | XMS_ITS | Continuity of Care Document ---
Author Organization [facility] Address [address] [place] [address]- Care Team Providers Care Spanish Lecturer Name Role Phone Mitch Lopez Primary Care Physician [facility]s): 02/02/21 - 03/04/21 [facility] [address] [place], [place] [address] Allergies, Adverse Reactions, Alerts Substance Reaction [...] Given Patient Refuses 1Result Comment: Received at [facility] on [address] 2Admin Note: VIS given 3Admin Note: Administered at [facility] on [address] in [place]. 4Location History: [facility] pharmacy 5Result Comment: [06/27/2014] PT HAD AT [facility] 6Admin Note: VIS GIVEN VIS [...] 0 Refills, Maintenance, 12/04/20 17:24:00 EDT, Tablet, [facility]/pharmacy #1972, Partial fill upon patient request if the prescription is for a schedule II opioid drug., 160.02, cm, 12/04/20 17:05:00 EDT, [place]... Start Date: 12/04/20 Status: Ordered Colace sodium 100 mg oral capsule 100 mg, 1, capsule, By Mouth, 2 times a day, PRN, # 20 capsule, Refills 0, Tot. Refills 0, Maintenance, for constipation, 02/07/21 10:55:00 EDT, Route to Pharmacy Electronically, [facility]/pharmacy #1972, Partial fill upon patient request [...] 0 Refills, Maintenance, 02/07/21 10:54:00 EDT, Gel, [facility]/pharmacy #1972, Partial fill upon patient request [...] Gm, 0 Refills, Maintenance, 08/08/20 15:21:00 EST, [place], [facility], Partial fill upon patient request [...] 05/19/20 16:20:00 EDT, Route to Pharmacy Electronically, [id number], [facility], 160.02, cm, 04/28/20 13:40:00 EDT, Height, 9... Start Date: 05/19/20 Stop Date: 11/15/20 Status: Ordered ProAir HFA 90 mcg/inh inhalation aerosol with adapter 2, puffs, Inhalation, Every 6 hours, PRN, # 1 each, Refills 5, Tot. Refills 5, Maintenance, 06/16/20 18:28:00 EST, Route to Pharmacy Electronically, [id number], [facility]/pharmacy#1972, 160.02, cm, 05/27/20 13:10:00 EDT, Height, [...] 1 Refills, Soft Stop, 10/07/20 9:06:00 EST, [facility]/pharmacy #1972, Partial fill upon patient request if the prescription is for a schedule II opioid drug., 160.... Start Date: 10/07/20 Status: Ordered verapamil 180 mg oral capsule, extended release 1 capsule, By Mouth, Daily, # 30 capsule, 5 Refills, Maintenance, 02/04/21 9:28:00 EDT, [facility], 160.02, cm, 01/26/21 9:12:00 EDT, Height, 88.8, [...] Active *Joseph Resendez, Care Coord avril, ICP [phone](Confirmed) Active 1Jantoinette Streeter [facility] [place] [facility] [place] 2Case Napper Fixer [place] ([facility]); Psychiatrist - Dr Konstantin Narvaez [...]
--- OUTSIDE RECORDS SUMMARY | 2024-04-05 15:24 | XMS_ITS | Continuity of Care Document ---
Author Organization [facility] Address [address], [address] [place] [address]- Care Team Providers Care Textbook Associate Name Role Phone Mitch Lopez Primary Care Physician [phone] [facility]s): 06/16/21 - 07/16/21 [facility] [address], 4th [place] [address]- Allergies, Adverse Reactions, Alerts Substance Reaction Severity [...] Given Patient Refuses 1Result Comment: Received at [facility] on [address] 2Admin Note: VIS given 3Admin Note: Administered at [facility] on [address] in [place]. 4Location History: [facility] pharmacy 5Result Comment: [06/27/2014] PT HAD AT [facility] 6Admin Note: VIS GIVEN VIS [...] 1 each, 0 Refills, 04/14/21 19:19:00 EDT, [facility]/pharmacy #1972, INHALE 2 PUFFS EVERY 6 HOURS NEEDED FOR WHEEZING/SHORTNESS OF BREATH, 160.02, cm, 04/14/21 14... Start Date: 04/14/21 Status: Ordered Azithromycin 5 Day Dose Pack 250 mg oral tablet See Instructions, as directed on package labeling, # 6 tablet, 0 Refills, Maintenance, 05/05/21 9:14:00 EDT, [facility]/pharmacy #1972, Partial fill [...] 06/01/21 18:02:00 EDT, Route to Pharmacy Electronically, [facility]/pharmacy #1972, Partial fill u... Start Date: [...] 42.5 Gm, 2 Refills, Maintenance, 09/08/20 14:57:00EST, [facility]/pharmacy #1972, 160.02, cm, 07/29/20 16:36:00 [...] 0 Refills, Maintenance, 03/08/21 18:54:00 EDT, Tablet, [facility]/pharmacy #1972, Partial fill upon patient request if the prescription is for a schedule II opioid drug., 160.02, cm, 03/08/21 18:21:00... Start Date: 03/08/21 Stop Date: 03/22/21 Status: Ordered ProAir HFA 90 mcg/inh inhalation aerosol with adapter 2, puffs, Inhalation, Every 6 hours, PRN, # 1 each, Refills 5, Tot. Refills 5, Maintenance, 06/28/21 16:04:00 EST, Route to Pharmacy Electronically, [id number], [facility]/pharmacy#1972, 160.02, cm, 06/08/21 8:42:00 EST, Height, 85... Start Date: 06/28/21 Stop Date: 12/25/21 Status: Ordered ProAir HFA 90 mcg/inh inhalation aerosol with adapter 2, puffs, Inhalation, Every 6 hours, PRN, # 1 each, Refills 5, Tot. Refills 5, Maintenance, 05/19/20 16:20:00 EDT, Route to Pharmacy Electronically, [id number], [facility]/pharmacy#1972, 160.02, cm, 04/28/20 13:40:00 EDT, [...] 1 Refills, Soft Stop, 10/07/20 9:06:00 EST, [facility]/pharmacy #1972, Partial fill upon patient request if the prescription is for a schedule II opioid drug., 160.... Start Date: 10/07/20 Status: Ordered Symbicort 160mcg/4.5mcg Inhaler INHALE 2 PUFFS TWICE A DAY Start Date: 05/05/21 Status: Ordered verapamil 180 mg oral capsule, extended release 1 capsule, By Mouth, Daily, # 30 capsule, 5 Refills, Maintenance, 02/04/21 9:28:00 EDT, [facility], 160.02, cm, 01/26/21 9:12:00 EDT, Height, 88.8, [...] Active *Joseph Resendez, Care Coord inator, ICP [phone](Confirmed) Active 1Jantoinette Streeter [facility] 2Case Real Estate Loan Processor [place] Proctor ([facility]); [...]
--- OUTSIDE RECORDS SUMMARY | 2024-04-05 15:24 | XMS_ITS | Continuity of Care Document ---
Author Organization [facility] Address [address] [place] [address]- Care Team Providers Care Extension Service Specialist Name Role Phone Mitch Lopez Primary Care Physician [phone] [facility] 10[facility]30[facility]19 - 11/06/19 [facility] [address] [place] [address]- [facility] Attending Physician: Not on Staff, Attending MD Allergies, Adverse Reactions, Alerts Substance Reaction Severity Status aspirin wheezing Active Compazine unknown Active Bactrim bruising Active Motrin GI upset Active Immunizations Given and Recorded [...] Given Patient Refuses 1Admin Note: Administered at [facility] on [address] in [place]. 2Location History: [facility] pharmacy [...] 13:54:37, Compound Start Date: 09/07/17 Status: Ordered Azithromycin 5 Day Dose Pack 250 mg oral tablet 1 tablet = 250 mg, By Mouth, Daily, for 4 days, # 4 tablet, 0 Refills, Acute 11/08/19 15:35:00 EDT,11/04/19 15:35:00 EDT, Tablet, [facility]/pharmacy #1972, 160.02, cm, 10/11/19 15:24:00 EDT, Height, 85.91, kg, 08/01/19 12:13:00 EST, Dry Weight Start Date: 11/04/19 Stop Date: 11/08/19 Status: Ordered Blood Pressure Monitor See Instructions, [...] 07/25/19 14:29:00 EST, Route to Pharmacy Electronically, [id number], [facility]/pharmacy#1972, 158, cm, 07/25/19 13:55:00 EST, Height, [...] 30 capsule, 11 Refills, Maintenance, [facility], 160.02, cm, 10/11/19 15:24:00 EDT, Height, 85.91, [...] Chronic migraine(Confirmed) Active OCD(Confirmed) Active Dyan Streeter [facility] [place] [facility] [place] 2Case Recruitment Assistant [place] Pro[place] ([facility]); Psychiatrist - Dr Konstantin Narvaez 3admitted at adult partial hospitalization program (adult intensive short term out-pt psychiatric program). 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 BRCA1/2 negative,seen by genetics 6follow up at [facility] GI - Dr Richey. Multiple endoscopies, all normal. Other diagnosis is Non-ulcer dyspepsia Social History Social History Type Response Smoking Status Never smoker entered on: 02/07/14 Sex Female
--- OUTSIDE RECORDS SUMMARY | 2024-04-05 15:24 | XMS_ITS | Continuity of Care Document ---
Author Organization [facility] Address [address] [place] [address]- Care Team Providers Care Services Engineer Name Role Phone Mitch Lopez Primary Care Physician [facility]24 - 02/15/24 [facility] [address] [facility] [address] [place], [place] [phone] Attending Physician: Silver Russ Admitting Physician: Silver Russ Allergies, Adverse Reactions, Alerts Substance Reaction Severity [...] 18 07/18/06 Given 1Admin Note: Administered at [facility] on [facility] in [place]. 2Location History: [facility] pharmacy 3Result Comment: [06/27/2014] PT HAD AT [facility] 4Admin Note: VIS GIVEN VIS DATE 01/30/2012 5Admin Note: flulaval vis given vis date 02/22/2011 6Admin Note: vis given 03/09/10 7Result Comment: Received at [facility] on [facility] 8Admin Note: VIS [...] 180 tablet, 0 Refills, Maintenance,01/19/24 9:05:00 EDT, [facility] STORE 94130, 161, cm, 01/16/24 16:04:00 EDT, Height, 82.1, [...] tablet, 0 Refills, Maintenance, 03/31/23 18:55:00 EDT, [facility] STORE 24874, 161, cm, 03/29/23 14:07:00 EDT, Height, 85, [...] Refills, Maintenance, 02/13/24 9:40:00 EDT, [facility], 161, cm, 01/16/24 16:04:00 EDT, Height, 82.1, [...] Confirmed Active OCD Confirmed Active *Joseph Resendez, Banana Grader, ICP [phone] Confirmed Active 1Jantoinette Streeter [facility] [place] [facility] [place] 2Case Senior Ui Software Engineer Parish Proctor ([facility]); Psychiatrist [...] Professional Member Role: PCP Address: Address: [address] [place] [address] [place] [address]- Care Team Related Persons Name: GABINO CASTANEDA Address: home [address] [place] [address] Name: JERROD BEAUCHAMP Address: [place], [place] Name: BRE MIRANDA Address: [address] [address] Name: ALEYDA BEE Address: [address] [address] Name: ALEYDA BEE Address: [address] [address] Name: ROMIE PUENTES Address: [address] [address]
--- OUTSIDE RECORDS SUMMARY | 2024-04-05 15:24 | XMS_ITS | Continuity of Care Document ---
Author Organization [facility] Adult [facility] Address [address] [place] [address]- Care Team Providers Care Reservations Agent Name Role Phone Mitch Lopez Primary Care Physician [facility] 04/28/21 - 05/28/21 [facility] [address] [place] [address]- Allergies, Adverse Reactions, Alerts Substance Reaction Severity [...] Comment: Received at [facility] on [address] 2Admin Note: VIS given 3Admin Note: Administered at [facility] on [address] in [place]. 4Location History: [facility] pharmacy 5Result Comment: [06/27/2014] PT [...] tablet, 0 Refills, Maintenance, 05/05/21 9:14:00 EDT, [facility]/pharmacy #1972, Partial fill upon [...] 06/09/21 16:02:00 EST, 05/26/21 16:02:00 EDT, Tablet, [facility]/pharmacy #1972, Partial fill upon [...] 0 Refills, Maintenance, 03/08/21 18:54:00 EDT, Tablet, [facility]/pharmacy #1972, Partial fill upon patient request if the prescription is for a schedule II opioid drug., 160.02, cm, 03/08/21 18:21:00... Start Date: 03/08/21 Stop Date: 03/22/21 Status: Ordered ProAir HFA 90 mcg/inh inhalation aerosol with adapter 2, puffs, Inhalation, Every 6 hours, PRN, # 1 each, Refills 5, Tot. Refills 5, Maintenance, 05/19/20 16:20:00 EDT, Route to Pharmacy Electronically, [id number], [facility]/pharmacy#1972, 160.02, cm, 04/28/20 13:40:00 EDT, Height, 9... Start Date: 05/19/20 Stop Date: 11/15/20 Status: Ordered ProAir HFA 90 mcg/inh inhalation aerosol with adapter 2, puffs, Inhalation, Every 6 hours, PRN, # 1 each, Refills 5, Tot. Refills 5, Maintenance, 06/16/20 18:28:00 EST, Route to Pharmacy Electronically, [id number], [facility]/pharmacy#1972, 160.02, cm, 05/27/20 13:10:00 [...] 1 Refills, Soft Stop, 10/07/20 9:06:00 EST, [facility]/pharmacy #1972, Partial fill upon patient request if the prescription is for a schedule II opioid drug., 160.... Start Date: 10/07/20 Status: Ordered Symbicort 160mcg/4.5mcg Inhaler INHALE 2 PUFFS TWICE A DAY Start Date: 05/05/21 Status: Ordered verapamil 180 mg oral capsule, extended release 1 capsule, By Mouth, Daily, # 30 capsule, 5 Refills, Maintenance, 02/04/21 9:28:00 EDT, [facility], 160.02, cm, 01/26/21 9:12:00 EDT, Height, 88.8, [...] *Joseph Resendez, [facility] [phone](Confirmed) Active 1Jantoinette Streeter [facility] [place] 2Case Oncologist Parish Proctor ([facility]); Psychiatrist - [...] BRCA1/2 negative,seen by genetics 6follow up at [facility] GI - Dr Richey. Multiple endoscopies, all normal. Other diagnosis is Non-ulcer dyspepsia Social History Social History Type Response Smoking Status Never smoker entered on: 02/07/14 Sex Female
--- OUTSIDE RECORDS SUMMARY | 2024-04-05 15:24 | XMS_ITS | Continuity of Care Document ---
Author Organization [facility] Address [address] [place] [address]- Care Team Providers Care Central Office Maintainer Name Role Phone Mitch Lopez Primary Care Physician [phone] [place] [facility] 07/09/19 - 07/16/19 [facility] [address] [place] [address]- [facility] Attending Physician: Wu Taylor MD Referring Physician: [...] Given Patient Refuses 1Admin Note: Administered at [facility] on [address] in [place]. 2Location History: [facility] pharmacy 3Result [...] Maintenance,04/11/19 15:43:33 EDT, Route to Pharmacy Electronically, [id number], [facility]/pharmacy #1972 Start Date: 04/11/19 Stop [...] 07/04/19 14:20:40 EST, Route to Pharmacy Electronically, [id number]. Start Date: 07/04/19 Stop Date: 07/18/19 Status: [...] 04/11/19 15:43:08 EDT, Route to Pharmacy Electronically, [id number], [facility]/pharmacy#1972 Start Date: 04/11/19 Stop Date: [...] Chronic migraine(Confirmed) Active OCD(Confirmed) Active 1Jantoinette Streeter [facility] [place] 2Case Staff Radiographer Parish Proctor ([facility]); Psychiatrist - [...] oldest [Reference Range]: 1 Height 158 cm (07/09/19 6:07 PM) Oxygen Saturation [94-100 %] 100 % (07/09/19 6:07 PM) Pulse Rate [55-90 bpm] 83 bpm (07/09/19 6:07 PM) Blood Pressure [90-138/55-84 mm Hg] 122/ 66mm Hg (07/09/19 6:07 PM) Respiratory Rate [16-30 br/min] 16 br/mi n (07/09/19 6:07 PM) Temperature [96.8-100.4 DegF] 98.1 DegF (07/09/19 6:07 PM) Mode of Delivery (Oxygen) Room air (07/09/19 6:07 PM) Blood pressure sites Arm, left (07/09/19 6:07 PM) Temperature Route Oral (07/09/19 6:07 PM) Social History Social History Type Response Smoking Status Never smoker entered on: 02/07/14 Sex Female
--- OUTSIDE RECORDS SUMMARY | 2024-04-05 15:24 | XMS_ITS | Continuity of Care Document ---
Author Organization [facility] Address [address] [place] [address]- Care Team Providers Care Hospital Coordinator Name Role Phone Mitch Lopez Primary Care Physician Encounter [facility] Date(s): 04/25/20 - 05/02/20 [facility] [address] [place] [address]- [facility] Encounter Diagnosis Right leg pain(Discharge Diagnosis) - 04/25/20 Attending Physician: Chika SMITH, Nick Hernandez Referring Physician: Mitch Lopez Allergies, Adverse Reactions, [...] Given Patient Refuses 1Admin Note: Administered at [facility] on [address] [facility] [address] in [place]. 2Location History: [facility] pharmacy [...] Acute 05/05/20 14:03:00 EDT, 04/28/20 14:03:00 EDT, [facility]/pharmacy #1972, 160.02, cm, 04/28/20 13:40:00 EDT, Height, 92.3, kg, 04/17/20 15:01:00... Start Date: 04/28/20 Stop Date: 05/05/20 Status: Ordered ProAir HFA 90 mcg/inh inhalation aerosol with adapter 2, puffs, Inhalation, Every 6 hours, PRN, # 1 each, Refills 5, Tot. Refills 5, Maintenance, 03/12/20 7:19:00 EDT, Route to Pharmacy Electronically, [id number], [facility], 160.02, cm, 03/04/20 11:50:00 EDT, [...] DAYS, # 30 capsule, 11 Refills, Maintenance, [facility] STORE 25316, 160.02, cm, 10/11/19 15:24:00 EDT, Height, 85.91, kg, 08/01/19 12:13:00 EST, Dry Weight Start Date: 11/04/19 Status: Ordered verapamil 100 mg oral capsule, extended release 1 capsule = 100 mg, By Mouth, Daily at bedtime, # 90 capsule, 1 Refills, Maintenance, 08/01/19 15:54:00 EST, ER Capsule, [facility]/pharmacy #1972, Patient lost medication. Please fill this [...] Active *Joseph Resendez, Care Coord avril, ICP [phone](Confirmed) Active 1Jantoinette Streeter [facility] [place] [facility] 2Case Molder Setter [place] ([facility]); Psychiatrist - Dr Konstantin [...] BRCA1/2 negative,seen by genetics 6follow up at [facility] GI - Dr Richey. Multiple endoscopies, all normal. Other diagnosis is Non-ulcer dyspepsia Diagnosis Diagnosis Type Effective Dates Health Status Cl inical Service Informant Right leg pain Discharge Diagnosis 04/25/20 Vital Signs Most recent to oldest [Reference Range]: 1 Height 160.02 cm (04/25/20 9:19 AM) Oxygen Saturation [94-100 %] 98 % (04/25/20 9:19 AM) Pulse Rate [55-90 bpm] 96 bpm *H* (04/25/20 9:19 AM) Blood Pressure [90-138/55-84 mm Hg] 107/ 53mm Hg (04/25/20 9:19 AM) Respiratory Rate [16-30 br/min] 18 br/mi n (04/25/20 9:19 AM) Temperature [96.8-100.4 DegF] 97.1 DegF (04/25/20 9:19 AM) Blood pressure sites Arm, right (04/25/20 9:19 AM) Temperature Route Temporal (04/25/20 9:19 AM) Social History Social History Type Response Smoking Status Never smoker entered on: 02/07/14 Sex Female
--- OUTSIDE RECORDS SUMMARY | 2024-04-05 15:24 | XMS_ITS | Continuity of Care Document ---
Author Organization [facility] Address [address] [place] [address]- Care Team Providers Care Soil Fertility Extension Specialist Name Role Phone Mitch Lopez Primary Care Physician [phone] [facility] 01/16/24 - 02/15/24 [facility] [address] [place], [place] [phone] Allergies, Adverse Reactions, Alerts Substance Reaction Severity [...] 07/18/06 Given 1Admin Note: Administered at [facility] on [facility] in [place]. 2Location History: [facility] pharmacy 3Result Comment: [06/27/2014] PT HAD AT [facility] 4Admin Note: VIS GIVEN VIS DATE 01/30/2012 5Admin Note: flulaval vis given vis date 02/22/2011 6Admin Note: vis given 03/09/10 7Result Comment: Received at [facility] on [facility] 8Admin Note: VIS given 9Admin Note: [...] each, 11 Refills, Maintenance, 10/23/23 12:15:00 EDT, [facility]/pharmacy #1972, Partial fill upon patient request [...] 3 Refills, Maintenance, 08/28/23 14:07:00 EST, [facility]/pharmacy #1972, 25, 1 application Topically 4 times a day,PRN: NEEDED,Instr:MODERATE PAIN., 161, cm, 08/16/23 11:00:... Start Date: 08/28/23 Status: Ordered hydrOXYzine hydrochloride 25 mg oral tablet 1 tablet, By Mouth, 2 times a day, PRN NEEDED FOR ANXIETY, # 180 tablet, 0 Refills, Maintenance,01/19/24 9:05:00 EDT, [facility], 161, cm, 01/16/24 16:04:00 EDT, Height, 82.1, [...] 0 Refills, Maintenance, 03/31/23 18:55:00 EDT, [facility] STORE 59784, 161, cm, 03/29/23 14:07:00 EDT, Height, 85, [...] Refills, Maintenance, 02/13/24 9:40:00 EDT, [facility], 161, cm, 01/16/24 16:04:00 EDT, Height, 82.1, [...] Confirmed Active OCD Confirmed Active *Joseph Resendez, Account Manager Employee Benefits, ICP [phone] Confirmed Active 1Jantoinette Streeter [facility] Psychiatry [place] 2Case Php Engineer Parish Proctor ([facility]); Psychiatrist - Dr [...] BRCA1/2 negative,seen by genetics 6follow up at [facility] GI - Dr Richey. Multiple endoscopies, all normal. Other diagnosis is Non-ulcer dyspepsia Social History Social History Type Response Smoking Status Never smoker entered on: 02/07/14 Sex Female Patient Care team information Care Team Personnel Name: Mitch Lopez Position: S PCO Associate Professional Member Role: PCP Address: Address: [address] [place] [address] [place] [address]- Care Team Related Persons Name: GABINO CASTANEDA Address: home [address] [place] [address] Name: JERROD BEAUCHAMP Address: [place], [place] Name: BRE MIRANDA Address: home [address] [place] [address] Name: ALEYDA BEE Address: home [address] [place] [address] Name: ALEYDA BEE Address: home [address] [place] [address] Name: ROMIE PUENTES Address: home [address] [place] [address]
--- OUTSIDE RECORDS SUMMARY | 2024-04-05 15:24 | XMS_ITS | Continuity of Care Document ---
Author Organization [facility] Address [address] [place] [address]- Care Team Providers Care Ortho Nurse Name Role Phone Mitch Lopez Primary Care Physician [phone] [facility]s): 12/30/22 - 01/29/23 [facility] [address] [place] [address]- Allergies, Adverse Reactions, Alerts Substance Reaction Severity [...] Patient Refuses 1Admin Note: Administered at [facility] on [facility] in [place]. 2Location History: [facility] pharmacy 3Result Comment: [06/27/2014] PT HAD AT [facility] 4Admin Note: VIS GIVEN VIS DATE 01/30/2012 5Admin Note: flulaval vis given vis date 02/22/2011 6Admin Note: vis given 03/09/10 7Result Comment: Received at [facility] on [facility] 8Admin Note: VIS given 9Admin Note: [...] 1 Refills, Maintenance, 07/07/22 18:54:00 EST, [facility] STORE 23384, 30, APPLY 1 PATCH TOPICALLY DAILY NEEDED [...] 16:24:00 EDT, Route to Pharmacy Electronically, [facility]/pharmacy #1972, Partial fill upon patien... Start Date: [...] 11 Refills, Maintenance, 07/12/22 14:20:00 EST, [facility]/pharmacy #1972, Partial fill upon patient request if the prescription is for a schedule II opioid drug., 160, cm, 07/12/22 13:43:00 EST, Height, 88.2,... Start Date: 07/12/22 Status: Ordered Spiriva Respimat 1.25 mcg/inh inhalation aerosol 2 puffs, Inhalation, Daily, # 1 each, 11 Refills, Maintenance, 11/21/22 12:15:00 EDT, [facility]/pharmacy #1972, [...] 19:11:00 EDT, Aerosol, Route to Pharmacy Electronically, [id number], [facility]/pharmacy #1972, 161... Start Date: 11/24/22 Status: Ordered [...] Confirmed Active OCD Confirmed Active *Joseph Resendez, Rubber Off, ICP [phone] Confirmed Active 1Jantoinette Streeter [facility] [place] [facility] [place] 2Case Credit Verifier Parish Proctor ([facility]); Psychiatrist - Dr Konstantin Narvaez 3admitted at adult partial hospitalization program (adult intensive short term out-pt psychiatric program). 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 BRCA1/2 negative,seen by genetics 6follow up at [facility] GI - Dr Richey. Multiple endoscopies, all normal. Other diagnosis is Non-ulcer dyspepsia Social History Social History Type Response Smoking Status Never smoker entered on: 02/07/14 Sex Female Patient Care team information Care Team Personnel Name: Mitch Lopez Position: [facility] PCO Associate Professional Member Role: PCP Address: Address: [address] [place] [address] [place] [address]- Care Team Related Persons Name: GABINO CASTANEDA Address: home [address] [place] [address] Name: JERROD BEAUCHAMP Address: [place], [place] Name: BRE MIRANDA Address: home [address] [place] [address] Name: ALEYDA BEE Address: home [address] [place] [address] Name: ALEYDA BEE Address: home [address] [place] [address] Name: ROMIE PUENTES Address: home [address] [place] [address]
--- OUTSIDE RECORDS SUMMARY | 2024-04-05 15:24 | XMS_ITS | Continuity of Care Document ---
Author Organization [facility] Address [address] [place] [address]- Care Team Providers Care Intelligence Senior Sergeant Name Role Phone Mitch Lopez Primary Care Physician [facility] 10[facility]13[facility]21 - 11/12/[address] [address] Attending Physician: AdmJana leonardo Admitting Physician: AdmtrJana [...] Refuses 1Result Comment: Received at [facility] on [address] [facility] [address] 2Admin Note: VIS given 3Admin Note: Administered at [facility] on [address] in [place]. 4Location History: [facility] pharmacy 5Result Comment: [06/27/2014] PT HAD [...] 18:29:00 EDT, Route to Pharmacy Electronically, [facility]/pharmacy #1972, Partial fill upon patient request if the prescription is for a sched... Start Date: 10/14/21 Stop Date: 10/19/21 Status: Ordered buPROPion 150 mg/24 hours (XL) oral tablet, extended release TAKE 1 TABLET BY MOUTH EVERY DAY Start Date: 05/05/21 Status: Ordered [facility] MELATONIN 3 MG TABLET [facility] MELATONIN 3 MG TABLET, 1, tablet, By [...] A DAY, # 120 tablet, 2 Refills, [facility] 45862, 160.02, cm, 07/05/21 10:30:00 EST, Height, 85, kg, 03/11/21 17:07:00 EDT, Dry Weight Start Date: 08/22/21 Status: Ordered lidocaine 4% topical film 1 patch, Topically, 2 times a day, for 7 days, # 14 patch, 0 Refills, Acute 11/15/21 19:30:00 EDT, 11/08/21 19:30:00 EDT, Film, [facility], Partial fill upon patient request if the prescription is for a schedule II opioid drug., 1 patch Topica... Start Date: 11/08/21 Stop Date: 11/15/21 Status: Ordered meloxicam 7.5 mg oral tablet 1 tablet, By Mouth, Daily, FOR ARTHRITIS PAIN. TAKE WITH FOOD, # 30 tablet, 1 Refills, [facility] 84822, 160.02, cm, 09/16/21 14:31:00 EST, Height, 85, [...] 09/07/21 11:12:00 EST, Route to Pharmacy Electronically, [id number], [facility]/pharmacy #1972, 160.02, cm, 09/07/21 10:18:00 EST, Height,... Start Date: 09/07/21 Stop Date: 09/02/22 Status: Ordered Spiriva Respimat 1.25 mcg/inh inhalation aerosol 2 PUFFS INHALATION ONCE A DAY 30 DAYS Start Date: 05/05/21 Status: Ordered Spiriva Respimat 1.25 mcg/inh inhalation aerosol 2 puffs, Inhalation, Daily, # 1 each, 11 Refills, Maintenance, 09/07/21 11:12:00 EST, [facility]/pharmacy #1972, Partial fill upon patient [...] 17:59:00 EST, Aerosol, Route to Pharmacy Electronically, [id number], [facility]/pharmacy #1972, 160... Start Date: 09/08/21 Status: Ordered Tessalon Perles 100 mg oral capsule 1 capsule = 100 mg, By Mouth, 3 times a day, PRN Cough, # 20 capsule, 0 Refills, Maintenance, 09/16/21 15:25:00 EST, [facility]/pharmacy #1972, Partial fill upon patient request if the prescription is for aschedule II opioid drug., 160.02, cm, 09/16/21 14:3... Start Date: 09/16/21 Status: Ordered verapamil 180 mg oral capsule, extended release 1 capsule, By Mouth, Daily, # 30 capsule, 5 Refills, [facility] STORE 07304, 160.02, cm, 07/05/21 10:30:00EST, Height, 85, kg, [...] Active *Joseph Resendez, Care Coord inadavid, ICP [phone](Confirmed) Active 1Jantoinette Streeter [facility] [place] [facility] 2Case Clinical Transformation Specialist Parish Proctor ([facility]); Psychiatrist [...]
--- OUTSIDE RECORDS SUMMARY | 2024-04-05 15:24 | XMS_ITS | Continuity of Care Document ---
Author Organization [facility] Address [address] [place] [address]- Care Team Providers Care Ranger Aide Name Role Phone Mitch Lopez Primary Care Physician [facility]23 - 04/30/23 [facility] [address] [place], [place] [address] Allergies, Adverse Reactions, Alerts Substance Reaction [...] Administered at [facility] on [facility] in [place]. 2Location History: [facility] pharmacy 3Result Comment: [06/27/2014] PT HAD AT [facility] 4Admin Note: VIS GIVEN VIS DATE 01/30/2012 5Admin Note: flulaval vis given vis date 02/22/2011 6Admin Note: vis given 03/09/10 7Result Comment: Received at [facility] on [facility] 8Admin Note: VIS given 9Admin [...] tablet, 2 Refills, Maintenance, 03/31/23 18:55:00 EDT, [facility] STORE 35420, 161, cm, 03/29/23 14:07:00 EDT, Height, 85, [...] 18:55:00 EDT, [facility] STORE 95136, 161, cm, 03/29/23 14:07:00 EDT, Height, 85, [...] 19:11:00 EDT, Aerosol, Route to Pharmacy Electronically, [id number], [facility], 161... Start Date: 11/24/22 Status: [...] Refills, Maintenance, 03/22/23 11:50:00 EDT, [facility], 161, cm, 03/20/23 17:26:00 EDT, Height, 85, [...] Confirmed Active OCD Confirmed Active *Joseph Resendez, Weather Forcaster, ICP [phone] Confirmed Active 1Jantoinette Streeter [facility] [place] Psychiat[facility] [place] 2Case Computer Forwarding System Markup Clerk Parish Proctor ([facility]); Psychiatrist - Dr Konstantin Narvaez 3admitted [...] Associate Professional Member Role: PCP Address: Address: [address] [place] [address] [place] [address]- Care Team Related Persons Name: GABINO CASTANEDA Address: home [address] [place] [address] Name: JERROD BEAUCHAMP Address: [place], [place] Name: BRE MIRANDA Address: [address] [place] [address] Name: ALEYDA BEE Address: [address] [place] [address] Name: ALEYDA BEE Address: [address] [place] [address] Name: ROMIE PUENTES Address: home [address] [place] [address]
--- OUTSIDE RECORDS SUMMARY | 2024-04-05 15:24 | XMS_ITS | Continuity of Care Document ---
Author Organization [facility] Adult [facility] Address [address] [place] [address]- Care Team Providers Care Imaging Services Director Name Role Phone Mitch Lopez Primary Care Physician [facility]22 - 12/31/22 [facility] [address] [place] [address]- Allergies, Adverse Reactions, Alerts Substance Reaction Severity [...] Given Patient Refuses 1Admin Note: Administered at [facility] on [facility] in [place]. 2Location History: [facility] 3Result Comment: [06/27/2014] PT HAD AT [facility] 4Admin Note: VIS GIVEN VIS DATE 01/30/2012 5Admin Note: flulaval vis given vis date 02/22/2011 6Admin Note: vis given 03/09/10 7Result Comment: Received at [facility] on [facility] 8Admin Note: [...] 01/06/23 23:00:00 EDT, 12/24/22 10:09:00 EDT, Film, [facility]/pharmacy #1972, Partial fill upon patient request if the prescription is for a schedule II opioid dr... Start Date: 12/24/22 Stop Date: 01/06/23 Status: Ordered lidocaine 5% topical film 1 patch, Topically, Daily, PRN NEEDED FOR PAIN REMOVE AFTER 12 HOURS, # 30 patch, 1 Refills, Maintenance, 07/07/22 18:54:00 EST, [facility] STORE 86694, 30, APPLY 1 PATCH TOPICALLY DAILY NEEDED [...] 19:11:00 EDT, Aerosol, Route to Pharmacy Electronically, [id number], [facility], 161... Start Date: 11/24/22 Status: [...] Confirmed Active OCD Confirmed Active *Joseph Resendez, Fairground Operator, ICP [phone] Confirmed Active 1Jantoinette Streeter [facility] 2Case Pattern Layout Worker Parish Proctor ([facility]); Psychiatrist - Dr Konstantin Narvaez 3admitted [...] Professional Member Role: PCP Address: Address: [address] [place] [address] [place] [address]- Care Team Related Persons Name: GABINO CASTANEDA Address: home [address] [place] [address] Name: JERROD BEAUCHAMP Address: [place], [place] Name: BRE MIRANDA Address: home [address] [place] [address] Name: ALEYDA BEE Address: home [address] [place] [address] Name: ALEYDA BEE Address: home [address] [place] [address] Name: ROMIE PUENTES Address: home [address] [place] [address]
--- OUTSIDE RECORDS SUMMARY | 2024-04-05 15:24 | XMS_ITS | Continuity of Care Document ---
Author Organization [facility] Address [address] [place] [address]- Care Team Providers Care Hotel Housekeeper Name Role Phone Mitch Lopez Primary Care Physician [phone] [facility] 09[facility]26[facility]23 - 10/26/23 [facility] [address] [place], [place] [phone] Allergies, Adverse Reactions, Alerts Substance Reaction Severity [...] 18 07/18/06 Given 1Admin Note: Administered at [facility] on [facility] in [place]. 2Location History: [facility] pharmacy 3Result Comment: [06/27/2014] PT HAD AT [facility] 4Admin Note: VIS GIVEN VIS DATE 01/30/2012 5Admin Note: flulaval vis given vis date 02/22/2011 6Admin Note: vis given 03/09/10 7Result Comment: Received at [facility] on [facility] 8Admin Note: VIS [...] each, 11 Refills, Maintenance, 10/23/23 12:15:00 EDT, [facility]/pharmacy #1972, Partial fill upon patient [...] Gm, 3 Refills, Maintenance, 08/28/23 14:07:00 EST, [facility]/pharmacy #1972, 25, 1 application Topically 4 times a day,PRN: NEEDED,Instr:MODERATE PAIN., 161, cm, 08/16/23 11:00:... Start Date: 08/28/23 Status: Ordered hydrOXYzine hydrochloride 25 mg oral tablet 1 tablet, By Mouth, 2 times a day, PRN NEEDED FOR ANXIETY, # 60 tablet, 2 Refills, Maintenance, 10/17/23 11:01:00 EDT, [facility] STORE 11623, 161, cm, 09/29/23 11:18:00 EST, Height, 82.1, [...] 10/31/22 16:24:00 EDT, Route to Pharmacy Electronically, [facility]/pharmacy #1972, Partial fill upon patien... Start Date: 10/31/22 Status: Ordered nabumetone 500 mg oral tablet 1 tablet, By Mouth, 2 times a day, TAKE WITH FOOD., # 60 tablet, 0 Refills, Maintenance, 03/31/23 18:55:00 EDT, [facility] STORE 88714, 161, cm, 03/29/23 14:07:00 EDT, Height, 85, [...] Confirmed Active OCD Confirmed Active *Joseph Resendez, Letter Sorting Machine Operator, ICP [phone] Confirmed Active 1Jantoinette Streeter [facility] Psychiatry [place] 2Case Field Horticultural Specialty Grower Parish Proctor ([facility]); Psychiatrist [...] Professional Member Role: PCP Address: Address: [address] [place] [address] [place] [address]- Care Team Related Persons Name: GABINO CASTANEDA Address: home [address] [place] [address] Name: JERROD BEAUCHAMP Address: [place], [place] Name: BRE MIRANDA Address: home [address] [place] [address] Name: ALEYDA BEE Address: [address] [place] [address] Name: ALEYDA BEE Address: [address] [place] [address] Name: ROMIE PUENTES Address: home [address] [place] [address]
--- OUTSIDE RECORDS SUMMARY | 2024-04-05 15:24 | XMS_ITS | Continuity of Care Document ---
Author Organization [facility] Adult Medicine Address [address] [place] [address]- Care Team Providers Care Smoking Pipe Repairer Name Role Phone Mitch Lopez Primary Care Physician [facility]): 06/12/20 - 07/12/20 [facility] Adult [facility] [address] [place] [address]- Allergies, Adverse Reactions, Alerts Substance Reaction Severity [...] [facility] on [address] in [place]. 4Location History: [facility] pharmacy 5Result Comment: [06/27/2014] PT HAD AT [facility] 6Admin Note: VIS GIVEN [...] 2 Refills, Maintenance, 03/04/20 12:12:00 EDT, [facility]/pharmacy #1972, 160.02, cm, 03/04/20 11:50:00 EDT, Height, [...] 05/19/20 16:20:00 EDT, Route to Pharmacy Electronically, [id number], [facility]/pharmacy#1972, 160.02, cm, 04/28/20 13:40:00 EDT, Height, 9... Start Date: 05/19/20 Stop Date: 11/15/20 Status: Ordered ProAir HFA 90 mcg/inh inhalation aerosol with adapter 2, puffs, Inhalation, Every 6 hours, PRN, # 1 each, Refills 5, Tot. Refills 5, Maintenance, 06/16/20 18:28:00 EST, Route to Pharmacy Electronically, [id number], [facility]/pharmacy#1972, 160.02, cm, [...] 30 capsule, 11 Refills, [facility], [facility], 160.02, cm, 10/11/19 15:24:00 EDT, Height, 85.91, [...] OCD(Confirmed) Active *Joseph Resendez, [facility], ICP [phone](Confirmed) Active 1Jantoinette Streeter [facility] Psychiatry [place] 2Case Associate Artistic Director Parish Proctor ([facility]); Psychiatrist - [...] BRCA1/2 negative,seen by genetics 6follow up at [facility] GI - Dr Richey. Multiple endoscopies, all normal. Other diagnosis is Non-ulcer dyspepsia Social History Social History Type Response Smoking Status Never smoker entered on: 02/07/14 Sex Female
--- OUTSIDE RECORDS SUMMARY | 2024-04-05 15:24 | XMS_ITS | Continuity of Care Document ---
Author Organization [facility] Adult [facility] Address [address] [place] [address]- Care Team Providers Care Junior Web Designer Name Role Phone Mitch Lopez Primary Care Physician [phone] [facility] 11[facility]22 - 12/01/22 [facility] [address] [place] [address] Allergies, Adverse Reactions, Alerts Substance [...] at [facility] on [facility] in [place]. 2Location History: [facility] pharmacy 3Result Comment: [06/27/2014] PT HAD AT [facility] 4Admin Note: VIS GIVEN VIS DATE 01/30/2012 5Admin Note: flulaval vis given vis date 02/22/2011 6Admin Note: vis given 03/09/10 7Result Comment: Received at [facility] on [facility] 8Admin Note: VIS given 9Admin [...] patch, 1 Refills, Maintenance, 07/07/22 18:54:00 EST, [facility] STORE 47559, 30, APPLY 1 PATCH TOPICALLY DAILY NEEDED FOR PAIN REMOVE AFTER 12 HOURS, 160, cm, 06/07/22 9:36:00... Start Date: 07/07/22 Status: Ordered Mapap Arthritis Pain 650 mg oral tablet, extended release 2 tablet = 1,300 mg, By Mouth, Every 8 hours, PRN as needed for pain, # 100 tablet, 1 Refills, Maintenance, 10/21/22 15:42:00 EDT, ER Tablet, [facility]/pharmacy #1972, Partial fill [...] 10/31/22 16:24:00 EDT, Route to Pharmacy Electronically, [facility]/pharmacy #1972, Partial fill upon patien... [...] tablet, 11 Refills, Maintenance, 07/12/22 14:20:00 EST, [facility]/pharmacy #1972, Partial fill [...] 19:11:00 EDT, Aerosol, Route to Pharmacy Electronically, [id number], [facility], 161... Start Date: 11/24/22 Status: [...] Confirmed Active OCD Confirmed Active *Joseph Resendez, Real Estate Loan Officer, ICP [phone] Confirmed Active 1Jantoinette Streeter [facility] 2Case Barrel Rifler Hook Parish Proctor ([facility]); Psychiatrist - [...] negative,seen by genetics 6follow up at [facility] GI - Dr Richey. Multiple endoscopies, all normal. Other diagnosis is Non-ulcer dyspepsia Social History Social History Type Response Smoking Status Never smoker entered on: 02/07/14 Sex Female Patient Care team information Care Team Personnel Name: Mitch Lopez Position: S PCO Associate Professional Member Role: PCP Address: Address: [address] [place] [address] [place] [address]- Care Team Related Persons Name: GABINO CASTANEDA Address: home [address] [place] [address] Name: JERROD BEAUCHAMP Address: [place], [place] Name: BRE MIRANDA Address: [address] [place] [address] Name: ALEYDA BEE Address: home [address] [place] [address] Name: ALEYDA BEE Address: [address] [place] [address] Name: ROMIE PUENTES Address: home [address] [place] [address]
--- OUTSIDE RECORDS SUMMARY | 2024-04-05 15:24 | XMS_ITS | Continuity of Care Document ---
Author Organization [facility] Address [address] [place] [address]- Care Team Providers Care Branch Lending Officer Name Role Phone Mitch Lopez Primary Care Physician [facility] 06/09/21 - 07/09/21 [facility] [address] [place] [address]- Allergies, Adverse Reactions, Alerts Substance Reaction Severity [...] Refuses 1Result Comment: Received at [facility] on [facility] [address] 2Admin Note: VIS given 3Admin Note: Administered at [facility] on [facility] [address] in [place]. 4Location History: [facility] pharmacy 5Result Comment: [06/27/2014] PT HAD AT [facility] 6Admin Note: VIS GIVEN VIS DATE 01/30/2012 [...] 1 each, 0 Refills, 04/14/21 19:19:00 EDT, [facility]/pharmacy #1972, INHALE 2 PUFFS EVERY 6 HOURS NEEDED FOR WHEEZING/SHORTNESS OF BREATH, 160.02, cm, 04/14/21 14... Start Date: 04/14/21 Status: Ordered Azithromycin 5 Day Dose Pack 250 mg oral tablet See Instructions, as directed on package labeling, # 6 tablet, 0 Refills, Maintenance, 05/05/21 9:14:00 EDT, [facility]/pharmacy #1972, Partial fill upon patient request [...] 06/01/21 18:02:00 EDT, Route to Pharmacy Electronically, [facility]/pharmacy #1972, Partial fill u... Start Date: [...] Date: 03/08/21 Stop Date: 03/22/21 Status: Ordered nitrofurantoin macrocrystals 100 mg oral capsule 1 capsule = 100 mg, By Mouth, 2 times a day, for 5 days, # 10 capsule, 0 Refills, Acute 07/10/21 11:10:00 EST, 07/05/21 11:10:00 EST, [facility]/pharmacy #1972, Partial fill upon patient request if the prescription is for a schedule II opioid drug., 160.02,... Start Date: 07/05/21 Stop Date: 07/10/21 Status: Ordered ProAir HFA 90 mcg/inh inhalation aerosol with adapter 2, puffs, Inhalation, Every 6 hours, PRN, # 1 each, Refills 5, Tot. Refills 5, Maintenance, 06/28/21 16:04:00 EST, Route to Pharmacy Electronically, [id number], [facility]/pharmacy#1972, 160.02, cm, 06/08/21 8:42:00 EST, Height, 85... Start Date: 06/28/21 Stop Date: 12/25/21 Status: Ordered ProAir HFA 90 mcg/inh inhalation aerosol with adapter 2, puffs, Inhalation, Every 6 hours, PRN, # 1 each, Refills 5, Tot. Refills 5, Maintenance, 05/19/20 16:20:00 EDT, Route to Pharmacy Electronically, [id number], [facility]/pharmacy#1972, 160.02, cm, 04/28/20 13:40:00 EDT, Height, [...] Refills, Maintenance, 02/04/21 9:28:00 EDT, [facility], 160.02, cm, 01/26/21 9:12:00 EDT, Height, 88.8, [...] OCD(Confirmed) Active *Joseph Resendez, Care Coord inator, [facility] [phone](Confirmed) Active Dyan Streeter [facility] 2Case Sample Hand Parish Proctor ([facility]); Psychiatrist - Dr Konstantin [...] negative,seen by genetics 6follow up at [facility] GI - Dr Richey. Multiple endoscopies, all normal. Other diagnosis is Non-ulcer dyspepsia Social History Social History Type Response Smoking Status Never smoker entered on: 02/07/14 Sex Female
--- OUTSIDE RECORDS SUMMARY | 2024-04-05 15:24 | XMS_ITS | Continuity of Care Document ---
Author Organization [facility] Address [address] [place] [address]- Care Team Providers Care Boat Pilot Name Role Phone Mitch Lopez Primary Care Physician [phone] Encounter [facility] Date(s): 11/27/19 - 01/05/20 [facility] [address] [place] [address]- [facility] Attending Physician: Servando De Luna MD Admitting Physician: Servando De Luna MD Referring Physician: Mitch Lopez Allergies, Adverse [...] Given Patient Refuses 1Admin Note: Administered at [facility] on [address] [facility] [address] in [place]. 2Location History: [facility] pharmacy 3Result Comment: [06/27/2014] PT HAD AT [facility] 4Admin Note: VIS GIVEN VIS DATE [...] 07/25/19 14:29:00 EST, Route to Pharmacy Electronically, [id number], [facility]/pharmacy#1972, 158, cm, 07/25/19 13:55:00 EST, Height, 91.3... [...] DAYS, # 30 capsule, 11 Refills, Maintenance, [facility] STORE 91552, 160.02, cm, 10/11/19 15:24:00 EDT, Height, 85.91, [...] Active *Joseph Resendez, Care Coord inator, ICP [phone](Confirmed) Active 1Jantoinette Streeter [facility] [place] 2Case Crane Man Parish Proctor ([facility]); Psychiatrist - Dr Konstantin Narvaez 3admitted [...]
--- OUTSIDE RECORDS SUMMARY | 2024-04-05 15:24 | XMS_ITS | Continuity of Care Document ---
Author Organization [facility] Adult [facility] Address [address] [place] [address]- Care Team Providers Care Cemetery Manager Name Role Phone Mitch Lopez Primary Care Physician [facility] 12[facility]01[facility]22 - 01/01/23 [facility] [address] [place] [address]- Attending Physician: Not on Staff, Attending MD [...] Refuses 1Admin Note: Administered at [facility] on [facility] in [place]. 2Location History: [facility] 3Result Comment: [06/27/2014] PT HAD AT [facility] 4Admin Note: VIS GIVEN VIS DATE 01/30/2012 5Admin Note: flulaval vis given vis date 02/22/2011 6Admin Note: vis given 03/09/10 7Result Comment: Received at [facility] on [facility] 8Admin Note: VIS given 9Admin Note: [...] 1 Refills, Maintenance, 07/07/22 18:54:00 EST, [facility] STORE 24348, 30, APPLY 1 PATCH TOPICALLY DAILY NEEDED [...] tablet, 0 Refills, Maintenance, 12/30/22 15:43:00 EDT, [facility]/pharmacy #1972, Partial fill upon patient request [...] 19:11:00 EDT, Aerosol, Route to Pharmacy Electronically, [id number], [facility], 161... Start Date: 11/24/22 Status: [...] Confirmed Active OCD Confirmed Active *Joseph Resendez, Business Analysis Analyst, ICP [phone] Confirmed Active 1Jantoinette Streeter [facility] [place] 2Case Maple Products Maker Parish [place] ([facility]); Psychiatrist - Dr Konstantin Narvaez 3admitted at adult partial hospitalization program (adult intensive short term out-pt psychiatric program). 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 BRCA1/2 negative,seen by genetics 6follow up at [facility] GI - Dr Richey. Multiple endoscopies, all normal. Other diagnosis is Non-ulcer dyspepsia Social History Social History Type Response Smoking Status Never smoker entered on: 02/07/14 Sex Female Patient Care team information Care Team Personnel Name: Mitch Lopez Position: S PCO Associate Professional Member Role: PCP Address: Address: [address] [place] [address] [place] [address]- Care Team Related Persons Name: GABINO CASTANEDA Address: home [address] [place] [address] Name: JERROD BEAUCHAMP Address: [place], [place] Name: BRE MIRANDA Address: [address] [place] [address] Name: ALEYDA BEE Address: home [address] [place], [place] Name: ALEYDA BEE Address: home [address] [place], [place] Name: ROMIE PUENTES Address: home [address] [place] [address]
--- OUTSIDE RECORDS SUMMARY | 2024-04-05 15:25 | XMS_ITS | Continuity of Care Document ---
Author Organization [facility] Address [address] [place] [address]- Care Team Providers Care Marketing Analytics Manager Name Role Phone Mitch Lopez Primary Care Physician [place] [facility] [place](s): 04/09/21 - 05/15/[address] [address] Attending Physician: Mitch Lopez Admitting Physician: [...] Given Patient Refuses 1Result Comment: Received at [facility] on [facility] 2Admin Note: VIS given 3Admin Note: Administered at [facility] on [facility] in [place]. 4Location History: [facility] 5Result Comment: [06/27/2014] PT [...] 1 each, 0 Refills, 04/14/21 19:19:00 EDT, [facility]/pharmacy #1972, INHALE 2 PUFFS EVERY 6 HOURS NEEDED FOR WHEEZING/SHORTNESS OF BREATH, 160.02, cm, 04/14/21 14... Start Date: 04/14/21 Status: Ordered Azithromycin 5 Day Dose Pack 250 mg oral tablet See Instructions, as directed on package labeling, # 6 tablet, 0 Refills, Maintenance, 05/05/21 9:14:00 EDT, [facility]/pharmacy #1972, Partial fill upon [...] 05/19/20 16:20:00 EDT, Route to Pharmacy Electronically, [id number], [facility], 160.02, cm, 04/28/20 13:40:00 EDT, Height, 9... Start Date: 05/19/20 Stop Date: 11/15/20 Status: Ordered ProAir HFA 90 mcg/inh inhalation aerosol with adapter 2, puffs, Inhalation, Every 6 hours, PRN, # 1 each, Refills 5, Tot. Refills 5, Maintenance, 06/16/20 18:28:00 EST, Route to Pharmacy Electronically, [id number], [facility], 160.02, cm, 05/27/20 13:10:00 EDT, Height, [...] Refills, Maintenance, 02/04/21 9:28:00 EDT, [facility], 160.02, cm, 01/26/21 9:12:00 EDT, Height, 88.8, [...] Active *Joseph Resendez, Care Coord inator, ICP [phone](Confirmed) Active 1Jantoinette Streeter [facility] Psychiatry [place] 2Case Eight Arm Operator Parish Proctor ([facility]); Psychiatrist - [...] BRCA1/2 negative,seen by genetics 6follow up at [facility] GI - Dr Richey. Multiple endoscopies, all normal. Other diagnosis is Non-ulcer dyspepsia Social History Social History Type Response Smoking Status Never smoker entered on: 02/07/14 Sex Female
--- OUTSIDE RECORDS SUMMARY | 2024-04-05 15:25 | XMS_ITS | Continuity of Care Document ---
Author Organization [facility] Adult [facility] Address [address] [place] [address]- Care Team Providers Care Credit Portfolio Manager Name Role Phone Mitch Lopez Primary Care Physician [facility] 04[facility]21 - 05/30/21 [facility] [address] [place] [address]- Attending Physician: Not on Staff, Attending MD [...] Given Patient Refuses 1Result Comment: Received at [facility] on [address] 2Admin Note: VIS given 3Admin Note: Administered at [facility] on [address] in [place]. 4Location History: [facility] pharmacy 5Result Comment: [06/27/2014] PT HAD AT [facility] 6Admin Note: VIS GIVEN VIS DATE 01/30/2012 [...] 1 each, 0 Refills, 04/14/21 19:19:00 EDT, [facility]/pharmacy #1972, INHALE 2 PUFFS EVERY 6 HOURS NEEDED FOR WHEEZING/SHORTNESS OF BREATH, 160.02, cm, 04/14/21 14... Start Date: 04/14/21 Status: Ordered Azithromycin 5 Day Dose Pack 250 mg oral tablet See Instructions, as directed on package labeling, # 6 tablet, 0 Refills, Maintenance, 05/05/21 9:14:00 EDT, [facility]/pharmacy #1972, Partial fill upon [...] 06/09/21 16:02:00 EST, 05/26/21 16:02:00 EDT, Tablet, [facility]/pharmacy #1972, Partial fill upon [...] 0 Refills, Maintenance, 03/08/21 18:54:00 EDT, Tablet, [facility]/pharmacy #1972, Partial fill upon patient request if the prescription is for a schedule II opioid drug., 160.02, cm, 03/08/21 18:21:00... Start Date: 03/08/21 Stop Date: 03/22/21 Status: Ordered ProAir HFA 90 mcg/inh inhalation aerosol with adapter 2, puffs, Inhalation, Every 6 hours, PRN, # 1 each, Refills 5, Tot. Refills 5, Maintenance, 05/19/20 16:20:00 EDT, Route to Pharmacy Electronically, [id number], [facility]/pharmacy#1972, 160.02, cm, 04/28/20 13:40:00 EDT, Height, 9... Start Date: 05/19/20 Stop Date: 11/15/20 Status: Ordered ProAir HFA 90 mcg/inh inhalation aerosol with adapter 2, puffs, Inhalation, Every 6 hours, PRN, # 1 each, Refills 5, Tot. Refills 5, Maintenance, 06/16/20 18:28:00 EST, Route to Pharmacy Electronically, [id number], [facility]/pharmacy#1972, 160.02, cm, 05/27/20 13:10:00 [...] Refills, Maintenance, 02/04/21 9:28:00 EDT, [facility], 160.02, cm, 01/26/21 9:12:00 EDT, Height, 88.8, [...] OCD(Confirmed) Active *Joseph Resendez, Care Coord inator, [facility] [phone](Confirmed) Active Dyan Streeter [facility] Psychiatry [place] 2Case Operations And Maintenance Manager Parish Proctor ([facility]); Psychiatrist - [...] BRCA1/2 negative,seen by genetics 6follow up at [facility] GI - Dr Richey. Multiple endoscopies, all normal. Other diagnosis is Non-ulcer dyspepsia Social History Social History Type Response Smoking Status Never smoker entered on: 02/07/14 Sex Female
--- OUTSIDE RECORDS SUMMARY | 2024-04-05 15:25 | XMS_ITS | Continuity of Care Document ---
Author Organization [facility] Address [address] [place] [address]- Care Team Providers Care Envelope Fold Operator Name Role Phone Mitch Lopez Primary Care Physician [facility] 05[facility]22 - 06/03/22 [facility] [address] [place] [id number] Allergies, Adverse Reactions, Alerts Substance [...] Refuses 1Admin Note: Administered at [facility] on [facility] in [place]. 2Location History: [facility] 3Result Comment: [06/27/2014] PT HAD AT [facility] 4Admin Note: VIS GIVEN VIS DATE 01/30/2012 5Admin Note: flulaval vis given vis date 02/22/2011 6Admin Note: vis given 03/09/10 7Result Comment: Received at [facility] on [facility] 8Admin Note: VIS given 9Admin [...] tablet, 0 Refills, Maintenance, 04/15/22 16:54:00 EDT, [facility]/pharmacy #1972, Partial fill upon patient request if the prescription is for aschedule II opioid drug., 160, cm, 03/15/22 14:14:0... Start Date: 04/15/22 Status: Ordered albuterol CFC free 90 mcg/inh inhalation aerosol 1, puffs, Inhalation, Every 4 hours, PRN, # 6.7 Gm, Refills 3, Tot. Refills 3, Maintenance, 05/04/22 18:39:00 EDT, Aerosol, Route to Pharmacy Electronically, [id number], [facility], [place] to substitute ventolin, 160, [...] 30 tablet, 3 Refills, Maintenance, 01/03/22 11:56:00EDT, [facility]/pharmacy #1972, Partial fill upon patient request [...] tablet, 0 Refills, Maintenance, 05/12/22 13:13:00 EDT, [facility] STORE 54096, 160, cm, 05/04/22 16:09:00 EDT, Height, 88.2, [...] 01/03/22 11:58:00 EDT, Route to Pharmacy Electronically, [id number], [facility]/pharmacy #1972, 160, cm, 01/03/22 11:03:00 EDT, [...] 11:56:00 EDT, Aerosol, Route to Pharmacy Electronically, [id number], [facility]/pharmacy #1972, 160... Start Date: 01/03/22 Status: Ordered terazosin 2 mg oral capsule 1, capsule, By Mouth, Daily at bedtime, INSTR:CONTINUE TAKING TILL STONE EXPULSION OR TILL 4 WEEKS AND THEN DISCONTINUE., # 30 capsule, Refills 0, Maintenance, 03/28/22 14:40:00 EDT, Route to Pharmacy Electronically, [facility] STORE [facility]50, 160, cm, 03/15/22... Start Date: 03/28/22 Status: [...] # 30 capsule, 5 Refills, [facility], 160.02, cm, 07/05/21 10:30:00EST, Height, 85, kg, [...] Confirmed Active OCD Confirmed Active *Joseph Resendez, Data Sme, ICP [phone] Confirmed Active 1Jantoinette Streeter [facility] [place] [facility] [place] 2Case Plugger [place] Proctor ([facility]); Psychiatrist - [...] BRCA1/2 negative,seen by genetics 6follow up at [facility] GI - Dr Richey. Multiple endoscopies, all normal. Other diagnosis is Non-ulcer dyspepsia Social History Social History Type Response Smoking Status Never smoker entered on: 02/07/14 Sex Female Patient Care team information Personnel Name: Mitch Lopez Address: Address: [address] [place] [address]
--- OUTSIDE RECORDS SUMMARY | 2024-04-05 15:25 | XMS_ITS | Continuity of Care Document ---
Author Organization [facility] Address [address] [place] [address]- Care Team Providers Care Service Promoter Salesperson Name Role Phone Mitch Lopez Primary Care Physician [facility]): 05/27/23 - 06/26/23 [facility] [address] [place] [address]- Attending Physician: Jana Mercado Admitting Physician: Jana [...] 18 07/18/06 Given 1Admin Note: Administered at [facility] on [facility] in [place]. 2Location History: [facility] pharmacy 3Result Comment: [06/27/2014] PT HAD AT [facility] 4Admin Note: VIS GIVEN VIS DATE 01/30/2012 5Admin Note: flulaval vis given vis date 02/22/2011 6Admin Note: vis given 03/09/10 7Result Comment: Received at [facility] on [facility] 8Admin Note: VIS [...] tablet, 2 Refills, Maintenance, 06/09/23 19:43:00 EST, [facility] STORE 81707, 161, cm, 05/27/23 9:13:00 EDT, Height, 85, [...] tablet, 0 Refills, Maintenance, 12/30/22 15:43:00 EDT, [facility]/pharmacy #1972, Partial fill [...] 10/31/22 16:24:00 EDT, Route to Pharmacy Electronically, [facility]/pharmacy #1972, Partial fill upon patien... Start Date: 10/31/22 Status: Ordered nabumetone 500 mg oral tablet 1 tablet, By Mouth, 2 times a day, TAKE WITH FOOD., # 60 tablet, 0 Refills, Maintenance, 03/31/23 18:55:00 EDT, [facility] STORE 06463, 161, cm, 03/29/23 14:07:00 EDT, Height, 85, [...] tablet, 11 Refills, Maintenance, 07/12/22 14:20:00 EST, [facility]/pharmacy #1972, Partial [...] 19:11:00 EDT, Aerosol, Route to Pharmacy Electronically, [id number], [facility], 161... Start Date: 11/24/22 Status: [...] Refills, Maintenance, 03/22/23 11:50:00 EDT, [facility], 161, cm, 03/20/23 17:26:00 EDT, Height, 85, [...] Active OCD Confirmed Active *Joseph Resendez, Body Former, ICP [phone] Confirmed Active 1Jantoinette Streeter [facility] 2Case Director Industrial Relations [place] Proctor ([facility]); Psychiatrist - [...] Associate Professional Member Role: PCP Address: Address: [address] [place] [address] [place] [address]- Care Team Related Persons Name: GABINO CASTANEDA Address: home [address] [place] [address] Name: JERROD BEAUCHAMP Address: [place], [place] Name: BRE MIRANDA Address: home [address] [place] [address] Name: ALEYDA BEE Address: home [address] [place] [address] Name: ALEYDA BEE Address: [address] Name: ROMIE PUENTES Address: home [address] [place] [address]
--- OUTSIDE RECORDS SUMMARY | 2024-04-05 15:25 | XMS_ITS | Continuity of Care Document ---
Author Organization [facility] Address [address] [place] [address], [address] [place] [address]- Care Team Providers Care Freezing Machine Operator Name Role Phone Mitch Lopez Primary Care Physician [phone] Encounter [facility] Date(s): 04/14/21 - 04/21/21 [facility] [address] [place] [address] Drive, [address] [place], [place] [address] Attending Physician: Deysi Gomez DO Referring [...] Given Patient Refuses 1Result Comment: Received at [facility] on [facility] 2Admin Note: VIS given 3Admin Note: Administered at [facility] on [facility] in [place]. 4Location History: [facility] pharmacy 5Result Comment: [06/27/2014] PT HAD AT [facility] 6Admin Note: VIS GIVEN [...] 1 each, 0 Refills, 04/14/21 19:19:00 EDT, [facility]/pharmacy #1972, INHALE 2 PUFFS EVERY 6 HOURS NEEDED FOR WHEEZING/SHORTNESS OF BREATH, 160.02, cm, 04/14/21 14... Start Date: 04/14/21 Status: Ordered cetirizine 10 mg oral tablet 1 tablet = 10 mg, By Mouth, Daily, # 30 tablet, 0 Refills, Maintenance, 12/04/20 17:24:00 EDT, Tablet, [facility]/pharmacy #1972, Partial fill upon [...] 02/07/21 10:55:00 EDT, Route to Pharmacy Electronically, [facility]/pharmacy #1972, Partial fill upon [...] 0 Refills, Maintenance, 02/07/21 10:54:00 EDT, Gel, [facility]/pharmacy #1972, Partial fill upon [...] Gm, 0 Refills, Maintenance, 08/08/20 15:21:00 EST, [place], [facility], Partial fill upon patient request [...] 0 Refills, Maintenance, 03/08/21 18:54:00 EDT, Tablet, [facility]/pharmacy #1972, Partial fill upon patient request if the prescription is for a schedule II opioid drug., 160.02, cm, 03/08/21 18:21:00... Start Date: 03/08/21 Stop Date: 03/22/21 Status: Ordered ProAir HFA 90 mcg/inh inhalation aerosol with adapter 2, puffs, Inhalation, Every 6 hours, PRN, # 1 each, Refills 5, Tot. Refills 5, Maintenance, 05/19/20 16:20:00 EDT, Route to Pharmacy Electronically, [id number], [facility]/pharmacy#1972, 160.02, cm, 04/28/20 13:40:00 EDT, Height, 9... Start Date: 05/19/20 Stop Date: 11/15/20 Status: Ordered ProAir HFA 90 mcg/inh inhalation aerosol with adapter 2, puffs, Inhalation, Every 6 hours, PRN, # 1 each, Refills 5, Tot. Refills 5, Maintenance, 06/16/20 18:28:00 EST, Route to Pharmacy Electronically, [id number], [facility]/pharmacy#1972, 160.02, cm, 05/27/20 13:10:00 [...] 1 Refills, Soft Stop, 10/07/20 9:06:00 EST, [facility]/pharmacy #1972, Partial fill upon patient request if the prescription is for a schedule II opioid drug., 160.... Start Date: 10/07/20 Status: Ordered verapamil 180 mg oral capsule, extended release 1 capsule, By Mouth, Daily, # 30 capsule, 5 Refills, Maintenance, 02/04/21 9:28:00 EDT, [facility], 160.02, cm, 01/26/21 9:12:00 EDT, Height, 88.8, [...] Active *Joseph Resendez, Care Coord inator, ICP [phone](Confirmed) Active 1Jantoinette Streeter [facility] [place] 2Case Jr. Systems Administrator Parish Esthela ([facility]); Psychiatrist - Dr Konstantin Narvaez [...] oldest [Reference Range]: 1 Height 160.02 cm (04/14/21 2:45 PM) Weight 85 kg (04/14/21 2:45 PM) Body Mass Index [18.5-24.99] 33.19 *>HHI* (04/14/21 2:45 PM) Social History Social History Type Response Smoking Status Never smoker entered on: 02/07/14 Sex Female
--- OUTSIDE RECORDS SUMMARY | 2024-04-05 15:25 | XMS_ITS | Continuity of Care Document ---
Author Organization [facility] Address [address] [place] [address]- Care Team Providers Care Senior Storage Administrator Name Role Phone Mitch Lopez Primary Care Physician [facility]): 01/03/20 - 02/02/20 [facility] [address] [place] [address]- [facility] Encounter Diagnosis Chronic back pain(Discharge Diagnosis) [...] Note: Administered at [facility] on [facility] in [place]. 2Location History: [facility] pharmacy 3Result Comment: [06/27/2014] PT HAD [...] 07/25/19 14:29:00 EST, Route to Pharmacy Electronically, [id number], [facility]/pharmacy#1972, 158, cm, 07/25/19 13:55:00 [...] DAYS, # 30 capsule, 11 Refills, Maintenance, [facility] STORE 10885, 160.02, cm, 10/11/19 15:24:00 EDT, Height, 85.91, [...] Active *Joseph Resendez, Care Coord inator, ICP [phone](Confirmed) Active 1Jantoinette Streeter [facility] [place] [facility] [place] 2Case Card Grader [place] ([facility]); Psychiatrist - [...] negative,seen by genetics 6follow up at [facility] GI - Dr Richey. Multiple endoscopies, all normal. Other diagnosis is Non-ulcer dyspepsia Diagnosis Diagnosis Type Effective Dates Health Status Cl inical Service Informant Chronic back pain Discharge Diagnosis 06/22/19 Social History Social History Type Response Smoking Status Never smoker entered on: 02/07/14 Sex Female
--- OUTSIDE RECORDS SUMMARY | 2024-04-05 15:25 | XMS_ITS | Continuity of Care Document ---
Author Organization [facility] Address [address] [place] [address]- Care Team Providers Care Ceo And President Name Role Phone Mitch Lopez Primary Care Physician [phone] [facility] Date(s): 03/25/21 - 04/24/21 [facility] [address] [place] [id number] Allergies, Adverse Reactions, Alerts Substance Reaction Severity [...] Refuses 1Result Comment: Received at [facility] on [address] 2Admin Note: VIS given 3Admin Note: Administered at [facility] on [address] in [place]. 4Location History: [facility] pharmacy 5Result [...] 1 each, 0 Refills, 04/14/21 19:19:00 EDT, [facility]/pharmacy #1972, INHALE 2 PUFFS EVERY 6 HOURS NEEDED FOR WHEEZING/SHORTNESS OF BREATH, 160.02, cm, 04/14/21 14... Start Date: 04/14/21 Status: Ordered cetirizine 10 mg oral tablet 1 tablet = 10 mg, By Mouth, Daily, # 30 tablet, 0 Refills, Maintenance, 12/04/20 17:24:00 EDT, Tablet, [facility]/pharmacy #1972, Partial fill upon patient [...] 10:55:00 EDT, Route to Pharmacy Electronically, [facility]/pharmacy #1972, Partial fill upon patient [...] 0 Refills, Maintenance, 02/07/21 10:54:00 EDT, Gel, [facility]/pharmacy #1972, Partial fill upon patient request if the prescription is for a schedule II opioid drug., 160.02, cm, 02/04/21 15:57:00 EDT, [place]... Start Date: 02/07/21 Status: Ordered diclofenac 1% topical gel = 4 Gm, Topically, 4 times a day, PRN knee pain, Apply to painful knee, # 100 Gm, 0 Refills, Maintenance, 02/16/21 17:40:00 EDT, Gel, [facility]/pharmacy #1972, Partial fill upon patient [...] Gm, 0 Refills, Maintenance, 08/08/20 15:21:00 EST, [place], [facility], Partial fill upon patient request [...] 0 Refills, Maintenance, 03/08/21 18:54:00 EDT, Tablet, [facility]/pharmacy #1972, Partial fill upon patient request if the prescription is for a schedule II opioid drug., 160.02, cm, 03/08/21 18:21:00... Start Date: 03/08/21 Stop Date: 03/22/21 Status: Ordered ProAir HFA 90 mcg/inh inhalation aerosol with adapter 2, puffs, Inhalation, Every 6 hours, PRN, # 1 each, Refills 5, Tot. Refills 5, Maintenance, 05/19/20 16:20:00 EDT, Route to Pharmacy Electronically, [id number], [facility]/pharmacy#1972, 160.02, cm, 04/28/20 13:40:00 EDT, Height, 9... Start Date: 05/19/20 Stop Date: 11/15/20 Status: Ordered ProAir HFA 90 mcg/inh inhalation aerosol with adapter 2, puffs, Inhalation, Every 6 hours, PRN, # 1 each, Refills 5, Tot. Refills 5, Maintenance, 06/16/20 18:28:00 EST, Route to Pharmacy Electronically, [id number], [facility]/pharmacy#1972, 160.02, cm, 05/27/20 13:10:00 EDT, [...] Soft Stop, 10/07/20 9:06:00 EST, [facility]/pharmacy #1972, Partial fill upon patient request if the prescription is for a schedule II opioid drug., 160.... Start Date: 10/07/20 Status: Ordered verapamil 180 mg oral capsule, extended release 1 capsule, By Mouth, Daily, # 30 capsule, 5 Refills, Maintenance, 02/04/21 9:28:00 EDT, [facility], 160.02, cm, 01/26/21 9:12:00 EDT, Height, 88.8, [...] Active *Joseph Resendez, Care Coord inator, ICP [phone](Confirmed) Active 1Jantoinette Streeter [facility] [place] [facility] [place] 2Case Gas Torch Solderer [place] ([facility]); Psychiatrist [...] BRCA1/2 negative,seen by genetics 6follow up at [facility] GI - Dr Richey. Multiple endoscopies, all normal. Other diagnosis is Non-ulcer dyspepsia Social History Social History Type Response Smoking Status Never smoker entered on: 02/07/14 Sex Female
--- OUTSIDE RECORDS SUMMARY | 2024-04-05 15:25 | XMS_ITS | Continuity of Care Document ---
Author Organization [facility] Address [address] [place] [address]- Care Team Providers Care County Library Director Name Role Phone Mitch Lopez Primary Care Physician [phone] [facility] Date[facility]s): 10/06/21 - 11/05/21 [facility] [address] [place] [address]- Attending Physician: Jana Mercado Admitting Physician: Jana [...] Comment: Received at [facility] on [facility] [address] 2Admin Note: VIS given 3Admin Note: Administered at [facility] on [facility] [address] in [place]. 4Location History: [facility] pharmacy 5Result Comment: [06/27/2014] PT HAD AT [facility] 6Admin Note: VIS GIVEN VIS DATE [...] 10/14/21 18:29:00 EDT, Route to Pharmacy Electronically, [facility]/pharmacy #1972, Partial fill upon patient request if the prescription is for a sched... Start Date: 10/14/21 Stop Date: 10/19/21 Status: Ordered buPROPion 150 mg/24 hours (XL) oral tablet, extended release TAKE 1 TABLET BY MOUTH EVERY DAY Start Date: 05/05/21 Status: Ordered [facility] MELATONIN 3 MG TABLET [facility] MELATONIN 3 MG TABLET, 1, [...] A DAY, # 120 tablet, 2 Refills, [facility] ST[facility] 20672, 160.02, cm, 07/05/21 10:30:00 EST, Height, 85, kg, 03/11/21 17:07:00 EDT, Dry Weight Start Date: 08/22/21 Status: Ordered meloxicam 7.5 mg oral tablet 1 tablet, By Mouth, Daily, FOR ARTHRITIS PAIN. TAKE WITH FOOD, # 30 tablet, 1 Refills, [facility] 54760, 160.02, cm, 09/16/21 14:31:00 EST, Height, 85, [...] 09/07/21 11:12:00 EST, Route to Pharmacy Electronically, [id number], [facility]/pharmacy #1972, 160.02, cm, 09/07/21 10:18:00 EST, Height,... Start Date: 09/07/21 Stop Date: 09/02/22 Status: Ordered Spiriva Respimat 1.25 mcg/inh inhalation aerosol 2 PUFFS INHALATION ONCE A DAY 30 DAYS Start Date: 05/05/21 Status: Ordered Spiriva Respimat 1.25 mcg/inh inhalation aerosol 2 puffs, Inhalation, Daily, # 1 each, 11 Refills, Maintenance, 09/07/21 11:12:00 EST, [facility]/pharmacy #1972, Partial fill [...] 17:59:00 EST, Aerosol, Route to Pharmacy Electronically, [id number], [facility]/pharmacy #1972, 160... Start Date: 09/08/21 Status: Ordered Tessalon Perles 100 mg oral capsule 1 capsule = 100 mg, By Mouth, 3 times a day, PRN Cough, # 20 capsule, 0 Refills, Maintenance, 09/16/21 15:25:00 EST, [facility]/pharmacy #1972, Partial fill upon patient request if the prescription is for aschedule II opioid drug., 160.02, cm, 09/16/21 14:3... Start Date: 09/16/21 Status: Ordered verapamil 180 mg oral capsule, extended release 1 capsule, By Mouth, Daily, # 30 capsule, 5 Refills, [facility] STORE 24815, 160.02, cm, 07/05/21 10:30:00EST, Height, 85, kg, [...] I(Confirmed) Active OCD(Confirmed) Active *Joseph Resendez, [facility], [facility] [phone](Confirmed) Active Dyan Streeter [facility] [place] 2Case Retail Experience Specialist [place] Proctor ([facility]); Psychiatrist - Dr Konstantin Narvaez 3admitted [...]
--- OUTSIDE RECORDS SUMMARY | 2024-04-05 15:25 | XMS_ITS | Continuity of Care Document ---
Author Organization [facility] Address [address] [place] [address]- Care Team Providers Care Refractory Tile Helper Name Role Phone Mitch Lopez Primary Care Physician [facility] 07[facility]28/20 - 08/27/20 [facility] [address] [place], [place] [address] Allergies, Adverse Reactions, [...] Given Patient Refuses 1Result Comment: Received at [facility] on [address] 2Admin Note: VIS given 3Admin Note: Administered at [facility] on [address] in [place]. 4Location History: [facility] pharmacy 5Result Comment: [06/27/2014] PT HAD AT [facility] 6Admin Note: VIS GIVEN [...] Gm, 0 Refills, Maintenance, 08/08/20 15:21:00 EST, [place], [facility]/pharmacy #1972, Partial fill upon patient [...] 07/15/20 20:01:00 EST, Route to Pharmacy Electronically, [facility]/pharmacy #1972, Partial fill upon patient [...] 05/19/20 16:20:00 EDT, Route to Pharmacy Electronically, [id number], [facility]/pharmacy#1972, 160.02, cm, 04/28/20 13:40:00 EDT, Height, 9... Start Date: 05/19/20 Stop Date: 11/15/20 Status: Ordered ProAir HFA 90 mcg/inh inhalation aerosol with adapter 2, puffs, Inhalation, Every 6 hours, PRN, # 1 each, Refills 5, Tot. Refills 5, Maintenance, 06/16/20 18:28:00 EST, Route to Pharmacy Electronically, [id number], [facility]/pharmacy#1972, 160.02, cm, 05/27/20 13:10:00 EDT, Height, 9... [...] 30 capsule, 11 Refills, Maintenance, [facility], 160.02, cm, 10/11/19 15:24:00 EDT, Height, 85.91, [...] Active *Joseph Resendez, Care Coord inator, ICP [phone](Confirmed) Active Dyan Streeter [facility] [place] [facility] [place] 2Case Blood Bank Custodian [place] Proctor ([facility]); Psychiatrist - Dr [...] BRCA1/2 negative,seen by genetics 6follow up at [facility] GI - Dr Richey. Multiple endoscopies, all normal. Other diagnosis is Non-ulcer dyspepsia Social History Social History Type Response Smoking Status Never smoker entered on: 02/07/14 Sex Female
--- OUTSIDE RECORDS SUMMARY | 2024-04-05 15:25 | XMS_ITS | Continuity of Care Document ---
Author Organization [facility] [employer] Address [address] [place] [address]- Care Team Providers Care Flyer Repairer Name Role Phone Mitch Lopez Primary Care Physician Encounter [facility] Date(s): 06/26/19 - 10/24/19 [facility] [employer] [facility] [facility] [address] [place] [address]- Attending Physician: Ignacia Guzmán MD Admitting Physician: Ignacia Guzmán MD Referring Physician: Mitch Lopze Allergies, Adverse Reactions, Alerts Substance Reaction Severity [...] Administered at [facility] on [address] in [place]. 2Location History: [facility] [...] 07/25/19 14:29:00 EST, Route to Pharmacy Electronically, [id number], [facility]/pharmacy#1972, 158, cm, 07/25/19 13:55:00 [...] 11/22/19 12:00:00 EDT, 10/11/19 16:15:00 EDT, Tablet, [facility]/pharmacy... Start Date: 10/11/19 Stop Date: 11/22/19 Status: [...] Chronic migraine(Confirmed) Active OCD(Confirmed) Active 1Jantoinette Streeter [facility] [place] 2Case Skilled Nursing Facility Counselor Parish Proctor ([facility]); Psychiatrist - Dr Konstantin Narvaez 3admitted at adult partial hospitalization program (adult intensive short term out-pt psychiatric program). 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 BRCA1/2 negative,seen by genetics 6follow up at [facility] GI - Dr Richey. Multiple endoscopies, all normal. Other diagnosis is Non-ulcer dyspepsia Social History Social History Type Response Smoking Status Never smoker entered on: 02/07/14 Sex Female
--- OUTSIDE RECORDS SUMMARY | 2024-04-05 15:25 | XMS_ITS | Continuity of Care Document ---
Author Organization [facility] Address [address] [place] [address]- Care Team Providers Care Automation Qa Lead Name Role Phone Mitch Lopez Primary Care Physician [facility]21 - 07/15/21 [facility] [address] [place] [address]- Allergies, Adverse Reactions, Alerts Substance Reaction Severity [...] 1Result Comment: Received at [facility] on [address] [facility] [address] 2Admin Note: VIS given 3Admin Note: Administered at [facility] on [address] [facility] [address] in [place]. 4Location History: [facility] pharmacy 5Result Comment: [06/27/2014] PT HAD AT [facility] 6Admin Note: VIS GIVEN [...] 1 each, 0 Refills, 04/14/21 19:19:00 EDT, [facility]/pharmacy #1972, INHALE 2 PUFFS EVERY 6 HOURS NEEDED FOR WHEEZING/SHORTNESS OF BREATH, 160.02, cm, 04/14/21 14... Start Date: 04/14/21 Status: Ordered Azithromycin 5 Day Dose Pack 250 mg oral tablet See Instructions, as directed on package labeling, # 6 tablet, 0 Refills, Maintenance, 05/05/21 9:14:00 EDT, [facility]/pharmacy #1972, Partial fill upon [...] 06/01/21 18:02:00 EDT, Route to Pharmacy Electronically, [facility]/pharmacy #1972, Partial fill u... Start Date: 06/01/21 [...] 06/28/21 16:04:00 EST, Route to Pharmacy Electronically, [id number], [facility]/pharmacy#1972, 160.02, cm, 06/08/21 8:42:00 EST, Height, 85... Start Date: 06/28/21 Stop Date: 12/25/21 Status: Ordered ProAir HFA 90 mcg/inh inhalation aerosol with adapter 2, puffs, Inhalation, Every 6 hours, PRN, # 1 each, Refills 5, Tot. Refills 5, Maintenance, 05/19/20 16:20:00 EDT, Route to Pharmacy Electronically, [id number], [facility]/pharmacy#1972, 160.02, cm, 04/28/20 13:40:00 EDT, [...] 1 Refills, Soft Stop, 10/07/20 9:06:00 EST, [facility]/pharmacy #1972, Partial fill upon patient request if the prescription is for a schedule II opioid drug., 160.... Start Date: 10/07/20 Status: Ordered Symbicort 160mcg/4.5mcg Inhaler INHALE 2 PUFFS TWICE A DAY Start Date: 05/05/21 Status: Ordered verapamil 180 mg oral capsule, extended release 1 capsule, By Mouth, Daily, # 30 capsule, 5 Refills, Maintenance, 02/04/21 9:28:00 EDT, [facility], 160.02, cm, 01/26/21 9:12:00 EDT, Height, 88.8, [...] Active *Joseph Resendez, [facility], ICP [phone](Confirmed) Active 1Jantoinette Streeter [facility] Psychiatry [place] 2Case Monogram Machine Operator Parish Proctor ([facility]); Psychiatrist - Dr Konstantin Narvaez 3admitted at adult partial hospitalization program (adult intensive short term out-pt psychiatric program). 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 BRCA1/2 negative,seen by genetics 6follow up at [facility] GI - Dr Richey. Multiple endoscopies, all normal. Other diagnosis is Non-ulcer dyspepsia Social History Social History Type Response Smoking Status Never smoker entered on: 02/07/14 Sex Female
--- OUTSIDE RECORDS SUMMARY | 2024-04-05 15:25 | XMS_ITS | Continuity of Care Document ---
Author Organization [facility] Address [address] [place] [address]- Care Team Providers Care Digital Designer Name Role Phone Mitch Lopez Primary Care Physician [phone] Encounter [facility] Date(s): 06/16/22 - 07/16/[address] [address]- Allergies, Adverse Reactions, Alerts Substance Reaction Severity [...] Note: Administered at [facility] on [facility] in [place]. 2Location History: [facility] pharmacy 3Result Comment: [06/27/2014] PT HAD AT [facility] 4Admin Note: VIS GIVEN VIS DATE 01/30/2012 5Admin Note: flulaval vis given vis date 02/22/2011 6Admin Note: vis given 03/09/10 7Result Comment: Received at [facility] on [facility] 8Admin Note: VIS given 9Admin [...] tablet, 0 Refills, Maintenance, 04/15/22 16:54:00 EDT, [facility]/pharmacy #1972, Partial fill upon patient [...] patch, 1 Refills, Maintenance, 07/07/22 18:54:00 EST, [facility] STORE 93004, 30, APPLY 1 PATCH TOPICALLY DAILY NEEDED [...] tablet, 0 Refills, Maintenance, 06/19/22 12:17:00 EST, [facility] STORE 15876, 160, cm, 06/07/22 9:36:00 EST, Height, 88.2, [...] Soft Stop, 10/07/20 9:06:00 EST, [facility]/pharmacy #1972, Partial fill upon patient request if the prescription is for a schedule II opioid drug., 160.... Start Date: 10/07/20 Status: Ordered Symbicort 160mcg/4.5mcg Inhaler 2, puffs, Inhalation, 2 times a day, rinse mouth and throat after use, # 10.2 Gm, Refills 11, Tot. Refills 11, Maintenance, 06/07/22 10:22:00 EST, Aerosol, Route to Pharmacy Electronically, [id number], [facility]/pharmacy #1972, 160... Start Date: 06/07/22 Status: Ordered terazosin 2 mg oral capsule 1, capsule, By Mouth, Daily at bedtime, INSTR:CONTINUE TAKING TILL STONE EXPULSION OR TILL 4 WEEKS AND THEN DISCONTINUE., # 30 capsule, Refills 0, Maintenance, 03/28/22 14:40:00 EDT, Route to Pharmacy Electronically, [facility] STORE 45694, 160, cm, 03/15/22... Start Date: 03/28/22 Status: [...] pain, # 60 tablet, 0 Refills, Maintenance, 12/09/22 10:47:00 EST, [facility], Partial fill upon [...] Refills, Maintenance, 06/16/22 9:46:00 EST, [facility], 160, cm, 06/07/22 9:36:00 EST, Height, 88.2, [...] Confirmed Active OCD Confirmed Active *Joseph Resendez, Retail Management Keyholder, ICP [phone] Confirmed Active 1Jantoinette Streeter [facility] Psychiatry [place] 2Case Manager Inspection Parish Proctor ([facility]); Psychiatrist - Dr Konstantin Narvaez 3admitted at adult partial hospitalization program (adult intensive short term out-pt psychiatric program). 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 BRCA1/2 negative,seen by genetics 6follow up at [facility] GI - Dr Richey. Multiple endoscopies, all normal. Other diagnosis is Non-ulcer dyspepsia Social History Social History Type Response Smoking Status Never smoker entered on: 02/07/14 Sex Female Patient Care team information Care Team Personnel Name: Mitch Lopez Position: S PCO Associate Professional Member Role: PCP Address: Address: [address] [place] [address] [place] [address]- [place] Care Team Related Persons Name: GABINO CASTANEDA Address: home [address] [place] [address] Name: BRE MIRANDA Address: home [address] [place] [address] Name: ALEYDA BEE Address: home [address] [place] [address] Name: ALEYDA BEE Address: home [address] [place] [address] Name: ROMIE PUENTES Address: home [address] [place] [address]
--- OUTSIDE RECORDS SUMMARY | 2024-04-05 15:25 | XMS_ITS | Continuity of Care Document ---
Author Organization [facility] Address [address] [place] [address]- Care Team Providers Care Facing Baster Jumpbasting Name Role Phone Mitch Lopez Primary Care Physician [phone] [facility] 08[facility]23 - 10/29/23 [facility] [address] [facility] [address] [place], [place] [phone] Attending Physician: Not on Staff, Attending MD [...] 18 07/18/06 Given 1Admin Note: Administered at [facility] on [facility] in [place]. 2Location History: [facility] pharmacy 3Result Comment: [06/27/2014] PT HAD AT [facility] 4Admin Note: VIS GIVEN VIS DATE 01/30/2012 5Admin Note: flulaval vis given vis date 02/22/2011 6Admin Note: vis given 03/09/10 7Result Comment: Received at [facility] on [facility] 8Admin Note: VIS given 9Admin Note: [...] each, 11 Refills, Maintenance, 10/23/23 12:15:00 EDT, [facility]/pharmacy #1972, Partial fill [...] tablet, 2 Refills, Maintenance, 10/17/23 11:01:00 EDT, [facility] STORE 28957, 161, cm, 09/29/23 11:18:00 EST, Height, 82.1, [...] Refills, Maintenance, 03/30/23 21:21:00 EDT, ER Tablet, [facility]/pharmacy #1972, Partial fill [...] tablet, 0 Refills, Maintenance, 12/30/22 15:43:00 EDT, [facility]/pharmacy #1972, Partial fill [...] 10/31/22 16:24:00 EDT, Route to Pharmacy Electronically, [facility]/pharmacy #1972, Partial fill upon patien... Start Date: 10/31/22 Status: Ordered nabumetone 500 mg oral tablet 1 tablet, By Mouth, 2 times a day, TAKE WITH FOOD., # 60 tablet, 0 Refills, Maintenance, 03/31/23 18:55:00 EDT, [facility] STORE 57862, 161, cm, 03/29/23 14:07:00 EDT, Height, 85, [...] Confirmed Active OCD Confirmed Active *Joseph Resendez, Title Assistant, ICP [phone] Confirmed Active 1Jantoinette Streeter [facility] Psychiatry [place] 2Case Rig Site Engineer Parish Proctor ([facility]); Psychiatrist [...] BRCA1/2 negative,seen by genetics 6follow up at [facility] GI - Dr Richey. Multiple endoscopies, all normal. Other diagnosis is Non-ulcer dyspepsia Social History Social History Type Response Smoking Status Never smoker entered on: 02/07/14 Sex Female Patient Care team information Care Team Personnel Name: Mitch Lopez Position: S PCO Associate Professional Member Role: PCP Address: Address: [address] [place] [address] [place] [address]- Care Team Related Persons Name: GABINO CASTANEDA Address: home [address] [place] [address] Name: JERROD BEAUCHAMP Address: home [place] Name: BRE MIRANDA Address: home [address] [place] [address] Name: ALEYDA BEE Address: home [address] [place] [address] Name: ALEYDA BEE Address: [address] [place] [address] Name: ROMIE PUENTES Address: home [address] [place] [address]
--- OUTSIDE RECORDS SUMMARY | 2024-04-05 15:25 | XMS_ITS | Continuity of Care Document ---
Author Organization [facility] Address [address] [place] [address]- Care Team Providers Care Technical Project Lead Name Role Phone Mitch Lopez Primary Care Physician [facility] Date[facility]s): 09/27/23 - 10/27/23 [facility] [address] [place], [place] [phone] Allergies, Adverse Reactions, Alerts Substance Reaction Severity [...] Administered at [facility] on [facility] in [place]. 2Location History: [facility] pharmacy 3Result Comment: [06/27/2014] PT HAD AT [facility] 4Admin Note: VIS GIVEN VIS DATE 01/30/2012 5Admin Note: flulaval vis given vis date 02/22/2011 6Admin Note: vis given 03/09/10 7Result Comment: Received at [facility] on [facility] 8Admin Note: VIS given 9Admin Note: [...] 11 Refills, Maintenance, 10/23/23 12:15:00 EDT, [facility]/pharmacy #1972, Partial fill [...] tablet, 2 Refills, Maintenance, 10/17/23 11:01:00 EDT, [facility] STORE 24764, 161, cm, 09/29/23 11:18:00 EST, Height, 82.1, [...] 16:24:00 EDT, Route to Pharmacy Electronically, [facility]/pharmacy #1972, Partial fill upon patien... Start Date: 10/31/22 Status: Ordered nabumetone 500 mg oral tablet 1 tablet, By Mouth, 2 times a day, TAKE WITH FOOD., # 60 tablet, 0 Refills, Maintenance, 03/31/23 18:55:00 EDT, [facility] STORE 86061, 161, cm, 03/29/23 14:07:00 EDT, Height, 85, [...] Confirmed Active OCD Confirmed Active *Joseph Resendez, Crusher Setter, ICP [phone] Confirmed Active 1Jantoinette Streeter [facility] Psychiatry [place] 2Case Plant Protection Supervisor Parish Proctor ([facility]); Psychiatrist - Dr Konstantin Narvaez 3admitted [...] Professional Member Role: PCP Address: Address: [address] [place] [address] [place] [address]- Care Team Related Persons Name: GABINO CASTANEDA Address: home [address] [place] [address] Name: JERROD BEAUCHAMP Address: [place], [place] Name: BRE MIRANDA Address: [address] [place] [address] Name: ALEYDA BEE Address: [address] [place] [address] Name: ALEYDA BEE Address: [address] [place] [address] Name: ROMIE PUENTES Address: home [address] [place] [address]
--- OUTSIDE RECORDS SUMMARY | 2024-04-05 15:25 | XMS_ITS | Continuity of Care Document ---
Author Organization [facility] Address [address] [place] [address]- Care Team Providers Care Knit Goods Press Hand Name Role Phone Mitch Lopez Primary Care Physician [phone] [facility] 06/10/21 - 07/10/21 [facility] [address] [place] [address]- Allergies, Adverse Reactions, Alerts Substance Reaction Severity [...] Refuses 1Result Comment: Received at [facility] on [address] 2Admin Note: VIS given 3Admin Note: Administered at [facility] on [facility] in [place]. 4Location History: [facility] pharmacy 5Result Comment: [06/27/2014] PT HAD AT [facility] 6Admin Note: VIS GIVEN VIS DATE 01/30/2012 [...] 0 Refills, 04/14/21 19:19:00 EDT, [facility]/pharmacy #1972, INHALE 2 PUFFS EVERY 6 HOURS NEEDED FOR WHEEZING/SHORTNESS OF BREATH, 160.02, cm, 04/14/21 14... Start Date: 04/14/21 Status: Ordered Azithromycin 5 Day Dose Pack 250 mg oral tablet See Instructions, as directed on package labeling, # 6 tablet, 0 Refills, Maintenance, 05/05/21 9:14:00 EDT, [facility]/pharmacy #1972, Partial fill [...] 06/01/21 18:02:00 EDT, Route to Pharmacy Electronically, [facility]/pharmacy #1972, Partial fill u... Start Date: 06/01/21 [...] 06/28/21 16:04:00 EST, Route to Pharmacy Electronically, [id number], [facility]/pharmacy#1972, 160.02, cm, 06/08/21 8:42:00 EST, Height, 85... Start Date: 06/28/21 Stop Date: 12/25/21 Status: Ordered ProAir HFA 90 mcg/inh inhalation aerosol with adapter 2, puffs, Inhalation, Every 6 hours, PRN, # 1 each, Refills 5, Tot. Refills 5, Maintenance, 05/19/20 16:20:00 EDT, Route to Pharmacy Electronically, [id number], [facility]/pharmacy#1972, 160.02, cm, 04/28/20 13:40:00 EDT, Height, 9... [...] Refills, Maintenance, 02/04/21 9:28:00 EDT, [facility], 160.02, cm, 01/26/21 9:12:00 EDT, Height, 88.8, [...] Resendez, [facility], ICP [phone](Confirmed) Active 1Jantoinette Streeter [facility] Psychiatry [place] [address] Service Locksmith Parish Esthela ([facility]); Psychiatrist - Dr Konstantin Narvaez 3admitted [...]
--- OUTSIDE RECORDS SUMMARY | 2024-04-05 15:25 | XMS_ITS | Continuity of Care Document ---
Author Organization [facility] Address [address] [place] [address]- Care Team Providers Care Bail Bond Agent Name Role Phone Mitch Lopez Primary Care Physician Encounter [facility] Date(s): 02/15/24 - 03/16/24 [facility] [address] [place], [place] [address] Attending Physician: Admtr, Ar8 Allergies, Adverse Reactions, [...] 18 07/18/06 Given 1Admin Note: Administered at [facility] on [facility] in [place]. 2Location History: [facility] pharmacy 3Result Comment: [06/27/2014] PT HAD AT [facility] 4Admin Note: VIS GIVEN VIS DATE 01/30/2012 5Admin Note: flulaval vis given vis date 02/22/2011 6Admin Note: vis given 03/09/10 7Result Comment: Received at [facility] on [facility] 8Admin Note: VIS given 9Admin Note: [...] each, 11 Refills, Maintenance, 10/23/23 12:15:00 EDT, [facility]/pharmacy #1972, Partial fill upon [...] 180 tablet, 0 Refills, Maintenance,01/19/24 9:05:00 EDT, [facility] STORE 75717, 161, cm, 01/16/24 16:04:00 EDT, Height, 82.1, [...] Refills, Maintenance, 03/30/23 21:21:00 EDT, ER Tablet, [facility]/pharmacy #1972, Partial fill [...] tablet, 0 Refills, Maintenance, 12/30/22 15:43:00 EDT, [facility]/pharmacy #1972, Partial fill upon [...] 12/14/23 15:09:00 EDT, Route to Pharmacy Electronically, [facility]/pharmacy #1972, Partial fill upon patien... Start Date: 12/14/23 Status: Ordered nabumetone 500 mg oral tablet 1 tablet, By Mouth, 2 times a day, TAKE WITH FOOD., # 60 tablet, 0 Refills, Maintenance, 03/31/23 18:55:00 EDT, [facility] STORE 60001, 161, cm, 03/29/23 14:07:00 EDT, Height, 85, [...] Refills, Maintenance, 02/13/24 9:40:00 EDT, [facility], 161, cm, 01/16/24 16:04:00 EDT, Height, 82.1, [...] Confirmed Active OCD Confirmed Active *Joseph Resendez, Configuration Developer, ICP [phone] Confirmed Active 1Jantoinette Streeter [facility] Psychiatry [place] 2Case Barrel Inspector Tight Parish Proctor ([facility]); Psychiatrist - Dr Konstantin Narvaez 3admitted [...] Professional Member Role: PCP Address: Address: [address] [place] [address] [place] [address]- Care Team Related Persons Name: GABINO CASTANEDA Address: home [address] [place] [address] Name: JERROD BEAUCHAMP Address: home [place], [place] Name: BRE MIRANDA Address: [address] [place] [address] Name: ALEYDA BEE Address: [address] [place] [address] Name: ALEYDA BEE Address: [address] [place] [address] Name: ROMIE PUENTES Address: home [address] [place] [address]
--- OUTSIDE RECORDS SUMMARY | 2024-04-05 15:25 | XMS_ITS | Continuity of Care Document ---
Author Organization [facility] Address [address] [place] [address]- Care Team Providers Care Extension Supervisor Name Role Phone Mitch Lopez Primary Care Physician [facility]s): 02/13/24 - 03/14/24 [facility] [address] [facility] [address] [place], [place] [phone] Allergies, Adverse Reactions, Alerts Substance Reaction Severity [...] 18 07/18/06 Given 1Admin Note: Administered at [facility] on [facility] in [place]. 2Location History: [facility] pharmacy 3Result Comment: [06/27/2014] PT HAD AT [facility] 4Admin Note: VIS GIVEN VIS DATE 01/30/2012 5Admin Note: flulaval vis given vis date 02/22/2011 6Admin Note: vis given 03/09/10 7Result Comment: Received at [facility] on [facility] 8Admin Note: VIS given [...] each, 11 Refills, Maintenance, 10/23/23 12:15:00 EDT, [facility]/pharmacy #1972, Partial fill upon patient request [...] opioid drug. Start Date: 09/14/22 Status: Ordered [facility] MELATONIN 3 MG TABLET [facility] MEL[facility]ON[facility] [...] Gm, 3 Refills, Maintenance, 08/28/23 14:07:00 EST, [facility]/pharmacy #1972, 25, 1 application Topically 4 times a day,PRN: NEEDED,Instr:MODERATE PAIN., 161, cm, 08/16/23 11:00:... Start Date: 08/28/23 Status: Ordered hydrOXYzine hydrochloride 25 mg oral tablet 1 tablet, By Mouth, 2 times a day, PRN NEEDED FOR ANXIETY, # 180 tablet, 0 Refills, Maintenance,01/19/24 9:05:00 EDT, [facility] STORE 09805, 161, cm, 01/16/24 16:04:00 EDT, Height, 82.1, [...] 12/14/23 15:09:00 EDT, Route to Pharmacy Electronically, [facility]/pharmacy #1972, Partial fill upon patien... Start Date: 12/14/23 Status: Ordered nabumetone 500 mg oral tablet 1 tablet, By Mouth, 2 times a day, TAKE WITH FOOD., # 60 tablet, 0 Refills, Maintenance, 03/31/23 18:55:00 EDT, [facility] STORE 48148, 161, cm, 03/29/23 14:07:00 EDT, Height, 85, [...] Refills, Maintenance, 02/13/24 9:40:00 EDT, [facility], 161, cm, 01/16/24 16:04:00 EDT, Height, 82.1, [...] Confirmed Active OCD Confirmed Active *Joseph Resendez, Grease Refiner Operator, ICP [phone] Confirmed Active 1Jantoinette Streeter [facility] Psychiatry [place] 2Case Safety Aide Parish Proctor ([facility]); Psychiatrist - Dr Konstantin Narvaez [...] Associate Professional Member Role: PCP Address: Address: [address] [place] [address] [place] [address]- Care Team Related Persons Name: GABINO CASTANEDA Address: [address] [place] [address] Name: JERROD BEAUCHAMP Address: [place], [place] Name: BRE MIRANDA Address: [address] [place] [address] Name: ALEYDA BEE Address: [address] [place] [address] Name: ALEYDA BEE Address: [address] [place] [address] Name: ROMIE PUENTES Address: home [address] [place] [address]
--- OUTSIDE RECORDS SUMMARY | 2024-04-05 15:26 | XMS_ITS | Continuity of Care Document ---
Author Organization [facility] Address [address] [place] [address]- Care Team Providers Care Spring Production Supervisor Name Role Phone Mitch Lopez Primary Care Physician [phone] [facility] 08/28/23 - 09/27/23 [facility] [address] [place] [id number] Allergies, Adverse Reactions, Alerts Substance Reaction [...] Given 1Admin Note: Administered at [facility] on [facility] in [place]. 2Location History: [facility] pharmacy 3Result Comment: [06/27/2014] PT HAD AT [facility] 4Admin Note: VIS GIVEN VIS DATE 01/30/2012 5Admin Note: flulaval vis given vis date 02/22/2011 6Admin Note: vis given 03/09/10 7Result Comment: Received at [facility] on [facility] 8Admin Note: VIS given 9Admin Note: [...] drug. Start Date: 09/14/22 Status: Ordered [facility] MELATONIN 3 MG TABLET [facility] MELATONIN 3 MG TABLET, 1, [...] Refills, Maintenance, 08/28/23 14:07:00 EST, [facility]/pharmacy #1972, 25, 1 application Topically 4 times a day,PRN: NEEDED,Instr:MODERATE PAIN., 161, cm, 08/16/23 11:00:... Start Date: 08/28/23 Status: Ordered hydrOXYzine hydrochloride 25 mg oral tablet 1 tablet, By Mouth, 2 times a day, PRN NEEDED FOR ANXIETY, # 60 tablet, 2 Refills, Maintenance, 06/09/23 19:43:00 EST, [facility], 161, cm, 05/27/23 9:13:00 EDT, Height, 85, kg, 09/16/22 6:46:00 EST, Dry Weight Start Date: 06/09/23 Status: Ordered lidocaine 5% topical film 1 patch, Topically, Daily, PRN NEEDED FOR PAIN REMOVE AFTER 12 HOURS, # 30 patch, 1 Refills, Maintenance, 07/28/23 17:33:00 EST, [facility] 57592, 30, APPLY 1 PATCH TOPICALLY DAILY NEEDED FOR PAIN REMOVE AFTER 12 HOURS, 161, cm, 07/20/23 10:04:00... Start Date: 07/28/23 Status: Ordered Lidoderm 5% film 1 patch, Topically, Daily, remove patches after 12 hours, # 30 patch, 0 Refills, Maintenance, 08/16/23 11:10:00 EST, [facility]/pharmacy #1972, Partial [...] Refills, Maintenance, 03/31/23 18:55:00 EDT, [facility] STORE 10506, 161, cm, 03/29/23 14:07:00 EDT, Height, 85, [...] tablet, 0 Refills, Maintenance, 07/02/23 8:58:00 EST, [facility]/pharmacy #1972, Partial [...] 10:54:00 EST, Aerosol, Route to Pharmacy Electronically, [id number], [facility]/pharmacy #1972, 161... Start Date: 07/05/23 Status: Ordered [...] Confirmed Active OCD Confirmed Active *Joseph Resendez, Rocket Motor Mechanic, [facility] [phone] Confirmed Active 1Jantoinette Streeter [facility] [place] [facility] [place] 2Case Needle Loom Weaver [place] ([facility]); Psychiatrist [...] Care Team Personnel Name: Mitch Lopez Position: [facility] PCO Associate Professional Member Role: PCP Address: Address: [address] [place] [address] [place] [address]- [place] Care Team Related Persons Name: GABINO CASTANEDA Address: home [address] [place] [address] Name: JERROD BEAUCHAMP Address: [place], [place] Name: BRE MIRANDA Address: home [address] [place] [address] Name: ALEYDA BEE Address: home [address] [place] [address] Name: ALEYDA BEE Address: home [address] [place] [address] Name: ROMIE PUENTES Address: home [address] [place] [address]
--- OUTSIDE RECORDS SUMMARY | 2024-04-05 15:26 | XMS_ITS | Continuity of Care Document ---
Author Organization [facility] Address [address] [place] [address]- Care Team Providers Care Conversion Worker Name Role Phone Mitch Lopez Primary Care Physician [facility]): 05/03/21 - 06/02/21 [facility] [address] [place] [address]- Allergies, Adverse Reactions, Alerts Substance Reaction Severity [...] Patient Refuses 1Result Comment: Received at [facility] on [facility] [facility] [address] 2Admin Note: VIS given 3Admin Note: Administered at [facility] on [facility] [address] in [place]. 4Location History: [facility] pharmacy 5Result Comment: [06/27/2014] [...] 1 each, 0 Refills, 04/14/21 19:19:00 EDT, [facility]/pharmacy #1972, INHALE 2 PUFFS EVERY 6 HOURS NEEDED FOR WHEEZING/SHORTNESS OF BREATH, 160.02, cm, 04/14/21 14... Start Date: 04/14/21 Status: Ordered Azithromycin 5 Day Dose Pack 250 mg oral tablet See Instructions, as directed on package labeling, # 6 tablet, 0 Refills, Maintenance, 05/05/21 9:14:00 EDT, [facility]/pharmacy #1972, Partial fill upon patient [...] 06/01/21 18:02:00 EDT, Route to Pharmacy Electronically, [facility]/pharmacy #1972, Partial fill u... Start Date: [...] days, # 42 tablet, 0 Refills, Acute 06/15/21 18:33:00 EST, 06/01/21 18:33:00 EDT, Tablet, [facility], Partial fill upon patient request if the prescription is for a sche... Start Date: 06/01/21 Stop Date: 06/15/21 Status: Ordered Estrace Vaginal Cream 0.1 mg/g [...] 0 Refills, Maintenance, 03/08/21 18:54:00 EDT, Tablet, [facility]/pharmacy #1972, Partial fill upon patient request if the prescription is for a schedule II opioid drug., 160.02, cm, 03/08/21 18:21:00... Start Date: 03/08/21 Stop Date: 03/22/21 Status: Ordered ProAir HFA 90 mcg/inh inhalation aerosol with adapter 2, puffs, Inhalation, Every 6 hours, PRN, # 1 each, Refills 5, Tot. Refills 5, Maintenance, 05/19/20 16:20:00 EDT, Route to Pharmacy Electronically, [id number], [facility]/pharmacy#1972, 160.02, cm, 04/28/20 13:40:00 EDT, Height, 9... Start Date: 05/19/20 Stop Date: 11/15/20 Status: Ordered ProAir HFA 90 mcg/inh inhalation aerosol with adapter 2, puffs, Inhalation, Every 6 hours, PRN, # 1 each, Refills 5, Tot. Refills 5, Maintenance, 06/16/20 18:28:00 EST, Route to Pharmacy Electronically, [id number], [facility]/pharmacy#1972, 160.02, cm, 05/27/20 13:10:00 EDT, Height, [...] Refills, Soft Stop, 10/07/20 9:06:00 EST, [facility]/pharmacy #1972, Partial fill upon patient request if the prescription is for a schedule II opioid drug., 160.... Start Date: 10/07/20 Status: Ordered Symbicort 160mcg/4.5mcg Inhaler INHALE 2 PUFFS TWICE A DAY Start Date: 05/05/21 Status: Ordered verapamil 180 mg oral capsule, extended release 1 capsule, By Mouth, Daily, # 30 capsule, 5 Refills, Maintenance, 02/04/21 9:28:00 EDT, [facility], 160.02, cm, 01/26/21 9:12:00 EDT, Height, 88.8, [...] Active *Joseph Resendez, Care Coord inator, ICP [phone](Confirmed) Active Dyan Streeter [facility] [place] [facility] 2Case Medical Claims Processor [place] Pro[place] ([facility]); Psychiatrist - Dr Konstantin Narvaez 3admitted at [...] at [facility] GI - Dr Richey. Multiple endoscopies, all normal. Other diagnosis is Non-ulcer dyspepsia Social History Social History Type Response Smoking Status Never smoker entered on: 02/07/14 Sex Female
--- OUTSIDE RECORDS SUMMARY | 2024-04-05 15:26 | XMS_ITS | Continuity of Care Document ---
Author Organization [facility] Address [address] [place] [address]- Care Team Providers Care Lugger Name Role Phone Mitch Lopez Primary Care Physician [facility]): 05/05/23 - 06/04/23 [facility] [address] [place], [place] [address] Allergies, Adverse Reactions, Alerts Substance Reaction [...] 18 07/18/06 Given 1Admin Note: Administered at [facility] on [facility] in [place]. 2Location History: [facility] pharmacy 3Result Comment: [06/27/2014] PT HAD AT [facility] 4Admin Note: VIS GIVEN VIS DATE 01/30/2012 5Admin Note: flulaval vis given vis date 02/22/2011 6Admin Note: vis given 03/09/10 7Result Comment: Received at [facility] on [facility] 8Admin Note: VIS given 9Admin [...] opioid drug. Start Date: 09/14/22 Status: Ordered [facility] MELATONIN 3 MG TABLET [facility] MELATONIN 3 MG TABLET, 1, [...] tablet, 2 Refills, Maintenance, 03/31/23 18:55:00 EDT, [facility], 161, cm, 03/29/23 14:07:00 EDT, Height, 85, [...] tablet, 0 Refills, Maintenance, 03/31/23 18:55:00 EDT, [facility] STORE 11295, 161, cm, 03/29/23 14:07:00 EDT, Height, 85, [...] 19:11:00 EDT, Aerosol, Route to Pharmacy Electronically, [id number], [facility]/pharmacy #1972, 161... Start Date: 11/24/22 [...] Refills, Maintenance, 03/22/23 11:50:00 EDT, [facility], 161, cm, 03/20/23 17:26:00 EDT, Height, 85, [...] Confirmed Active OCD Confirmed Active *Joseph Resendez, Industrial Organization Manager, ICP [phone] Confirmed Active 1Jantoinette Streeter [facility] - [facility] 2Case Sales And Marketing Analyst [place] ([facility]); Psychiatrist - Dr Konstantin Narvaez 3admitted at adult partial hospitalization program (adult intensive short term out-pt psychiatric program). 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 BRCA1/2 negative,seen by genetics 6follow up at [facility] GI - Dr Richey. Multiple endoscopies, all normal. Other diagnosis is Non-ulcer dyspepsia Social History Social History Type Response Smoking Status Never smoker entered on: 02/07/14 Sex Female Patient Care team information Care Team Personnel Name: Mitch Lopez Position: S PCO Associate Professional Member Role: PCP Address: Address: [address] [place] [address] [place] [address]- Care Team Related Persons Name: GABINO CASTANEDA Address: home [address] [place] [address] Name: JERROD BEAUCHAMP Address: [place], [place] Name: BRE MIRANDA Address: [address] [place] [address] Name: ALEYDA BEE Address: home [address] [place] [address] Name: ALEYDA BEE Address: home [address] [place] [address] Name: ROMIE PUENTES Address: home [address] [place] [address]
--- OUTSIDE RECORDS SUMMARY | 2024-04-05 15:26 | XMS_ITS | Continuity of Care Document ---
Author Organization [facility] Address [address] [place] [address]- Care Team Providers Care Heating Technician Name Role Phone Mitch Lopez Primary Care Physician [facility]counter [facility] Date(s): 08/30/22 - 09/29/22 [facility] [address] [place] [address]- Allergies, Adverse Reactions, Alerts Substance Reaction Severity [...] Given Patient Refuses 1Admin Note: Administered at [facility] on [facility] in [place]. 2Location History: [facility] pharmacy 3Result Comment: [06/27/2014] PT HAD AT [facility] 4Admin Note: VIS GIVEN VIS DATE 01/30/2012 5Admin Note: flulaval vis given vis date 02/22/2011 6Admin Note: vis given 03/09/10 7Result Comment: Received at [facility] on [facility] 8Admin Note: VIS given 9Admin Note: 2nd [...] patch, 1 Refills, Maintenance, 07/07/22 18:54:00 EST, [facility] 45362, 30, APPLY 1 PATCH TOPICALLY DAILY NEEDED [...] Refills, Maintenance, 09/26/22 8:34:00 EST, [facility], 161, cm, 09/19/22 9:35:00 EST, Height, 85, [...] 13:48:00 EST, Aerosol, Route to Pharmacy Electronically, [id number], [facility]/pharmacy #1972, 160... Start Date: 08/29/22 Status: Ordered [...] 5 Refills, Maintenance, 06/15/22 10:39:00 EST, Aerosol, [facility]/pharmacy #1972, Partial fill upon patient request if the prescription is for a schedule II opioid... Start Date: 06/15/22 Status: Ordered verapamil 180 mg oral capsule, extended release 1 capsule, By Mouth, Daily, # 30 capsule, 5 Refills, Maintenance, 06/16/22 9:46:00 EST, [facility], 160, cm, 06/07/22 9:36:00 EST, Height, 88.2, [...] Confirmed Active OCD Confirmed Active *Joseph Resendez, Copping Machine Operator, ICP [phone] Confirmed Active 1Jantoinette Streeter [facility] [place] 2Case Manager Provider Relations [place] ([facility]); Psychiatrist - Dr Konstantin Narvaez 3admitted at adult partial hospitalization program (adult intensive short term out-pt psychiatric program). 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 BRCA1/2 negative,seen by genetics 6follow up at [facility] GI - Dr Richey. Multiple endoscopies, all normal. Other diagnosis is Non-ulcer dyspepsia Social History Social History Type Response Smoking Status Never smoker entered on: 02/07/14 Sex Female Patient Care team information Care Team Personnel Name: Mitch Lopez Position: [facility] PCO Associate Professional Member Role: PCP Address: Address: [address] [place] [address] [place] [address]- [place] Care Team Related Persons Name: GABINO CASTANEDA Address: home [address] [place] [address] Name: BRE MIRANDA Address: [address] [place] [address] Name: ALEYDA BEE Address: home [address] [place], [place] Name: ALEYDA BEE Address: [address] [place] [address] Name: ROMIE PUENTES Address: home [address] [place] [address]
--- OUTSIDE RECORDS SUMMARY | 2024-04-05 15:26 | XMS_ITS | Continuity of Care Document ---
Author Organization [facility] Address [address] [place] [address]- Care Team Providers Care Customer Service Attendant Name Role Phone Mitch Lopez Primary Care Physician Encounter [facility] Date(s): 06/23/20 - 07/23/20 [facility] [address] [place] [address]- Allergies, Adverse Reactions, Alerts Substance Reaction Severity [...] Given Patient Refuses 1Result Comment: Received at [facility] on [address] 2Admin Note: VIS given 3Admin Note: Administered at [facility] on [address] in [place]. 4Location History: [facility] pharmacy 5Result Comment: [06/27/2014] PT HAD AT [facility] 6Admin Note: VIS GIVEN VIS DATE [...] 13:54:37, Compound Start Date: 09/07/17 Status: Ordered Augmentin 875 mg-125 mg oral tablet 1 tablet, By Mouth, Every 12 hours, for 7 days, # 14 tablet, 0 Refills, Acute 07/28/20 17:36:00 EST, 07/21/20 17:36:00 EST, Tablet, [facility]/pharmacy #1972, Partial fill upon patient request if the prescription is for a schedule II opioid drug., 160.02, cm... Start Date: 07/21/20 Stop Date: 07/28/20 Status: Ordered Blood Pressure Monitor See Instructions, [...] days, # 15 tablet, 0 Refills, Acute 07/26/20 14:19:00 EST, 07/21/20 14:19:00 EST, Tablet, [facility], Partial fill upon patient request if the prescription is for a schedule II opioid drug., 160.... Start Date: 07/21/20 Stop Date: 07/26/20 Status: Ordered Estrace Vaginal Cream 0.1 mg/g [...] 11:53:00 EST Start Date: 09/09/19 Status: Ordered ibuprofen 600 mg oral tablet [...] 05/19/20 16:20:00 EDT, Route to Pharmacy Electronically, [id number], [facility]/pharmacy#1972, 160.02, cm, 04/28/20 13:40:00 EDT, Height, 9... Start Date: 05/19/20 Stop Date: 11/15/20 Status: Ordered ProAir HFA 90 mcg/inh inhalation aerosol with adapter 2, puffs, Inhalation, Every 6 hours, PRN, # 1 each, Refills 5, Tot. Refills 5, Maintenance, 06/16/20 18:28:00 EST, Route to Pharmacy Electronically, [id number], [facility]/pharmacy#1972, 160.02, cm, 05/27/20 13:10:00 EDT, Height, [...] 1,000 mg, By Mouth, Every 8 hours, PRN for fever, for 14 days, # 100 tablet, 0 Refills, Acute 08/04/20 14:18:00 EST, 07/21/20 14:18:00 EST, Tablet, [facility]/pharmacy #1972, Partial fill upon patient request if the prescription is for a schedule... Start Date: 07/21/20 Stop Date: 08/04/20 Status: Ordered verapamil 100 mg oral capsule, extended release See Instructions, 1 CAPSULE BY MOUTH DAILY AT BEDTIME,X90 DAYS, # 30 capsule, 11 Refills, Maintenance, [facility] 22941, 160.02, cm, 10/11/19 15:24:00 EDT, Height, 85.91, [...] Active *Joseph Resendez, Care Coord inator, ICP [phone](Confirmed) Active 1Jantoinette Streeter [facility] [place] 2Case Exercise Instructor Parish Proctor ([facility]); Psychiatrist - Dr Konstantin Narvaez 3admitted at adult partial hospitalization program (adult intensive short term out-pt psychiatric program). 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 BRCA1/2 negative,seen by genetics 6follow up at [facility] GI - Dr Richey. Multiple endoscopies, all normal. Other diagnosis is Non-ulcer dyspepsia Social History Social History Type Response Smoking Status Never smoker entered on: 02/07/14 Sex Female
--- OUTSIDE RECORDS SUMMARY | 2024-04-05 15:26 | XMS_ITS | Continuity of Care Document ---
Author Organization [facility] Address [address] [place] [address]- Care Team Providers Care Financial Consultant Name Role Phone Mitch Lopez Primary Care Physician [phone] [facility]): 07/04/22 - 08/03/22 [facility] [address] [place], [place] [address] Allergies, Adverse Reactions, Alerts Substance [...] [facility] on [facility] in [place]. 2Location History: [facility] pharmacy 3Result Comment: [06/27/2014] PT HAD AT [facility] 4Admin Note: VIS GIVEN VIS DATE 01/30/2012 5Admin Note: flulaval vis given vis date 02/22/2011 6Admin Note: vis given 03/09/10 7Result Comment: Received at [facility] on [facility] [...] 0 Refills, Maintenance, 04/15/22 16:54:00 EDT, [facility]/pharmacy #1972, [...] Refills, Maintenance, 07/07/22 18:54:00 EST, [facility] STORE 86181, 30, APPLY 1 PATCH TOPICALLY DAILY NEEDED [...] tablet, 0 Refills, Maintenance, 06/19/22 12:17:00 EST, [facility] STORE 72182, 160, cm, 06/07/22 9:36:00 EST, Height, 88.2, [...] 10:22:00 EST, Aerosol, Route to Pharmacy Electronically, [id number], [facility]/pharmacy #1972, 160... Start Date: 06/07/22 Status: Ordered terazosin 2 mg oral capsule 1, capsule, By Mouth, Daily at bedtime, INSTR:CONTINUE TAKING TILL STONE EXPULSION OR TILL 4 WEEKS AND THEN DISCONTINUE., # 30 capsule, Refills 0, Maintenance, 03/28/22 14:40:00 EDT, Route to Pharmacy Electronically, [facility] STORE 55909, 160, cm, 03/15/22... Start Date: 03/28/22 Status: [...] Refills, Maintenance, 06/16/22 9:46:00 EST, [facility], 160, cm, 06/07/22 9:36:00 EST, Height, 88.2, [...] Confirmed Active OCD Confirmed Active *Joseph Resendez, Marine Steam Fitter, ICP [phone] Confirmed Active 1Jantoinette Streeter [facility] [place] [facility] [place] 2Case Foundry Operator Parish Pro[place] ([facility]); Psychiatrist - Dr Konstantin Narvaez [...] Care Team Personnel Name: Mitch Lopez Position: [facility] PCO Associate Professional Member Role: PCP Address: Address: [address] [place] [address] [place] [address]- [place] Care Team Related Persons Name: GABINO CASTANEDA Address: [address] [place] [address] Name: RBE MIRANDA Address: [address] [place] [address] Name: ALEYDA BEE Address: [address] [place] [address] Name: ALEYDA BEE Address: [address] [place] [address] Name: ROMIE PUENTES Address: home [address] [place] [address]
--- OUTSIDE RECORDS SUMMARY | 2024-04-05 15:26 | XMS_ITS | Continuity of Care Document ---
Author Organization [facility] Address [address] [facility], [address] Floor, [address] [place] [address]- Care Team Providers Care Conservator Artifacts Name Role Phone Mitch Lopez Primary Care Physician [facility]counter [facility]): 08/05/20 - 09/04/20 [facility] [address], [address] Floor, [address] [place] [address]- Attending Physician: Francisco Rodrigues MD Admitting Physician: Francisco Rodrigues MD Allergies, Adverse Reactions, Alerts Substance Reaction [...] Given Patient Refuses 1Result Comment: Received at [facility] on [address] 2Admin Note: VIS given 3Admin Note: Administered at [facility] on [address] in [place]. 4Location History: [facility] pharmacy 5Result Comment: [06/27/2014] PT HAD AT [...] Gm, 0 Refills, Maintenance, 08/08/20 15:21:00 EST, [place], [facility], Partial fill upon patient request [...] 05/19/20 16:20:00 EDT, Route to Pharmacy Electronically, [id number], [facility]/pharmacy#1972, 160.02, cm, 04/28/20 13:40:00 EDT, Height, 9... Start Date: 05/19/20 Stop Date: 11/15/20 Status: Ordered ProAir HFA 90 mcg/inh inhalation aerosol with adapter 2, puffs, Inhalation, Every 6 hours, PRN, # 1 each, Refills 5, Tot. Refills 5, Maintenance, 06/16/20 18:28:00 EST, Route to Pharmacy Electronically, [id number], [facility]/pharmacy#1972, 160.02, cm, 05/27/20 13:10:00 [...] 30 capsule, 11 Refills, Maintenance, [facility], 160.02, cm, 10/11/19 15:24:00 EDT, Height, 85.91, [...] *Joseph Resendez, Care Coord [facility], ICP [phone](Confirmed) Active Dyan Streeter [facility] [place] 2Case Aerospace Medicine Physician Parish Proctor ([facility]); Psychiatrist - Dr [...] BRCA1/2 negative,seen by genetics 6follow up at [facility] GI - Dr Richey. Multiple endoscopies, all normal. Other diagnosis is Non-ulcer dyspepsia Social History Social History Type Response Smoking Status Never smoker entered on: 02/07/14 Sex Female
--- OUTSIDE RECORDS SUMMARY | 2024-04-05 15:26 | XMS_ITS | Continuity of Care Document ---
Author Organization [facility] Address [address] [place] [address]- Care Team Providers Care Social Organization Professor Name Role Phone Mitch Lopez Primary Care Physician [phone] [facility]counter [facility] 08/29/22 - 09/28/22 [facility] [address] [place] [address]- Allergies, Adverse Reactions, Alerts Substance Reaction Severity [...] Given Patient Refuses 1Admin Note: Administered at [facility] on [facility] in [place]. 2Location History: [facility] pharmacy 3Result Comment: [06/27/2014] PT HAD AT [facility] 4Admin Note: VIS GIVEN VIS DATE 01/30/2012 5Admin Note: flulaval vis given vis date 02/22/2011 6Admin Note: vis given 03/09/10 7Result Comment: Received at [facility] on [facility] 8Admin Note: VIS given 9Admin Note: [...] patch, 1 Refills, Maintenance, 07/07/22 18:54:00 EST, [facility], 30, APPLY 1 PATCH TOPICALLY DAILY NEEDED [...] Refills, Maintenance, 09/26/22 8:34:00 EST, [facility], 161, cm, 09/19/22 9:35:00 EST, Height, 85, [...] 13:48:00 EST, Aerosol, Route to Pharmacy Electronically, [id number], [facility]/pharmacy #1972, 160... Start Date: 08/29/22 Status: Ordered [...] 5 Refills, Maintenance, 06/15/22 10:39:00 EST, Aerosol, [facility]/pharmacy #1972, Partial fill upon patient request if the prescription is for a schedule II opioid... Start Date: 06/15/22 Status: Ordered verapamil 180 mg oral capsule, extended release 1 capsule, By Mouth, Daily, # 30 capsule, 5 Refills, Maintenance, 06/16/22 9:46:00 EST, [facility], 160, cm, 06/07/22 9:36:00 EST, Height, 88.2, [...] Confirmed Active OCD Confirmed Active *Joseph Resendez, Preformer Impregnated Fabrics, ICP [phone] Confirmed Active 1Jantoinette Streeter [facility] Psychiatry [place] 2Case Scanner Operator [place] ([facility] [...] BRCA1/2 negative,seen by genetics 6follow up at [facility] GI - Dr Richey. Multiple endoscopies, all normal. Other diagnosis is Non-ulcer dyspepsia Social History Social History Type Response Smoking Status Never smoker entered on: 02/07/14 Sex Female Patient Care team information Care Team Personnel Name: Mitch Lopez Position: [facility] PCO Associate Professional Member Role: PCP Address: Address: [address] [place] [address] [place] [address]- [place] Care Team Related Persons Name: GABINO CASTANEDA Address: home [address] [place] [address] Name: BRE MIRANDA Address: home [address] [place] [address] Name: ALEYDA BEE Address: home [address] [place], [place] Name: ALEYDA BEE Address: home [address] [place] [address] Name: ROMIE PUENTES Address: home [address] [place] [address]
--- OUTSIDE RECORDS SUMMARY | 2024-04-05 15:26 | XMS_ITS | Continuity of Care Document ---
Author Organization [facility] Address [address] [place] [address]- Care Team Providers Care Swimming Pool Installer Name Role Phone Mitch Lopez Primary Care Physician [facility]counter [facility](s): 03/20/23 - 04/19/23 [facility] [address] [place], [place] [address] Allergies, Adverse Reactions, Alerts Substance [...] 18 07/18/06 Given 1Admin Note: Administered at [facility] on [facility] in [place]. 2Location History: [facility] pharmacy 3Result Comment: [06/27/2014] PT HAD AT [facility] 4Admin Note: VIS GIVEN VIS DATE 01/30/2012 5Admin Note: flulaval vis given vis date 02/22/2011 6Admin Note: vis given 03/09/10 7Result Comment: Received at [facility] on [facility] 8Admin Note: VIS given 9Admin [...] opioid drug. Start Date: 09/14/22 Status: Ordered [facility] MELATONIN 3 MG TABLET [facility] MELATONIN 3 MG TABLET, 1, tablet, [...] tablet, 2 Refills, Maintenance, 03/31/23 18:55:00 EDT, [facility] STORE 68521, 161, cm, 03/29/23 14:07:00 EDT, Height, 85, [...] tablet, 0 Refills, Maintenance, 03/31/23 18:55:00 EDT, [facility] STORE 49694, 161, cm, 03/29/23 14:07:00 EDT, Height, 85, [...] 19:11:00 EDT, Aerosol, Route to Pharmacy Electronically, [id number], [facility]/pharmacy #1972, 161... Start Date: 11/24/22 Status: [...] Refills, Maintenance, 03/22/23 11:50:00 EDT, [facility], 161, cm, 03/20/23 17:26:00 EDT, Height, 85, [...] Confirmed Active OCD Confirmed Active *Joseph Resendez, Cokeman, ICP [phone] Confirmed Active 1Jantoinette Streeter [facility] [place] [facility] [place] 2Case Social Media Project Manager Parish Proctor ([facility]); Psychiatrist - Dr Konstantin Narvaez [...] at [facility] GI - Dr Richye. Multiple endoscopies, all normal. Other diagnosis is Non-ulcer dyspepsia Social History Social History Type Response Smoking Status Never smoker entered on: 02/07/14 Sex Female Patient Care team information Care Team Personnel Name: Mitch Lopez Position: S PCO Associate Professional Member Role: PCP Address: Address: [address] [place] [address] [place] [address]- Care Team Related Persons Name: GABINO CASTANEDA Address: [address] [place] [address] Name: JERROD BEAUCHAMP Address: [place], [place] Name: BRE MIRANDA Address: [address] [place] [address] Name: ALEYDA BEE Address: [address] [place] [address] Name: ALEYDA BEE Address: home [address] [place] [address] Name: ROMIE PUENTES Address: home [address] [place] [address]
--- OUTSIDE RECORDS SUMMARY | 2024-04-05 15:26 | XMS_ITS | Continuity of Care Document ---
Author Organization [facility] Address [address] [place] [address]- Care Team Providers Care Nurse'S Aides Teacher Name Role Phone Mitch Lopez Primary Care Physician [phone] [facility]counter [facility] Date(s): 10/21/22 - 11/20/22 [facility] [address] [place] [id number] Allergies, Adverse Reactions, Alerts Substance [...] Administered at [facility] on [facility] in [place]. 2Location History: [facility] pharmacy 3Result Comment: [06/27/2014] PT HAD AT [facility] 4Admin Note: VIS GIVEN VIS DATE 01/30/2012 5Admin Note: flulaval vis given vis date 02/22/2011 6Admin Note: vis given 03/09/10 7Result Comment: Received at [facility] on [facility] 8Admin Note: VIS given 9Admin [...] opioid drug. Start Date: 09/14/22 Status: Ordered Azithromycin 5 Day Dose Pack 250 mg oral tablet See Instructions, as directed on package labeling, # 6 each, 0 Refills, Maintenance, 10/31/22 16:33:00 EDT, [facility], Partial fill upon patient request if the prescription is for a scheduleII opioid drug., 161, cm, 10/31/22 14:08:00 EDT, He... Start Date: 10/31/22 Status: Ordered Breo Ellipta 200 mcg-25 mcg/inh [...] patch, 1 Refills, Maintenance, 07/07/22 18:54:00 EST, [facility] STORE 37365, 30, APPLY 1 PATCH TOPICALLY DAILY NEEDED [...] tablet, 0 Refills, Maintenance, 09/26/22 8:34:00 EST, [facility] STORE 92044, 161, cm, 09/19/22 9:35:00 EST, Height, 85, kg, 09/16/22 6:46:00 EST, Dry Weight Start Date: 09/26/22 Status: Ordered Premarin 0.3 mg oral tablet 1 tablet = 0.3 mg, By Mouth, Daily, # 30 tablet, 11 Refills, Maintenance, 07/12/22 14:20:00 EST, [facility]/pharmacy #1972, Partial fill upon patient request if the prescription is for a schedule II opioid drug., 160, cm, 07/12/22 13:43:00 EST, Height, 88.2,... Start Date: 07/12/22 Status: Ordered Spiriva Respimat 1.25 mcg/inh inhalation aerosol 2 puffs, Inhalation, Daily, # 1 each, 11 Refills, Maintenance, 06/07/22 10:22:00 EST, [facility]/pharmacy #1972, Partial fill upon patient request if the prescription is for a schedule II opioid drug., 160,cm, 06/07/22 9:36:00 EST, Height, 88.2, kg, ... Start Date: 06/07/22 Status: Ordered Symbicort 160mcg/4.5mcg Inhaler 2, puffs, Inhalation, 2 times a day, rinse mouth and throat after use, # 10.2 Gm, Refills 11, Tot. Refills 11, Maintenance, 10/21/22 15:43:00 EDT, Aerosol, Route to Pharmacy Electronically, [id number], [facility]/pharmacy #1972, 161... Start Date: 10/21/22 Status: Ordered traMADol 50 mg oral tablet [...] Confirmed Active OCD Confirmed Active *Joseph Resendez, Laborer Rags, ICP [phone] Confirmed Active 1Jantoinette Streeter [facility] [place] Psychiat[facility] [place] 2Case Child Protective Services Social Worker Parish Proctor ([facility]); Psychiatrist - Dr Konstantin Narvaez [...] Professional Member Role: PCP Address: Address: [address] [place] [address] [place] [address]- Care Team Related Persons Name: GABINO CASTANEDA Address: home [address] [place] [address] Name: JERROD BEAUCHAMP Address: [place], [place] Name: BRE MIRANDA Address: home [address] [place] [address] Name: ALEYDA BEE Address: home [address] [place] [address] Name: ALEYDA BEE Address: [address] [address] Name: ROMIE PUENTES Address: [address] [address]
--- OUTSIDE RECORDS SUMMARY | 2024-04-05 15:26 | XMS_ITS | Continuity of Care Document ---
Author Organization [facility] Address [address] [place] [address]- Care Team Providers Care City Wellness Coordinator Name Role Phone Mitch Lopez Primary Care Physician [phone] Encounter [facility] Date(s): 11/24/20 - 12/24/20 [facility] [address] [place] [address]- Allergies, Adverse Reactions, Alerts Substance Reaction Severity [...] [facility] on [address] 2Admin Note: VIS given 3Admin Note: Administered at [facility] on [address] in [place]. 4Location History: [facility] pharmacy 5Result Comment: [06/27/2014] PT HAD AT [facility] 6Admin Note: VIS GIVEN VIS DATE 01/30/2012 [...] Refills, Maintenance, 12/04/20 17:24:00 EDT, Tablet, [facility]/pharmacy [...] Gm, 2 Refills, Maintenance, 09/08/20 14:57:00EST, [facility]/pharmacy #1972, 160.02, cm, 07/29/20 16:36:00 EST, Height, 92.3, kg, 07/24/20 13:24:00 EST, Dry Weight Start Date: 09/08/20 Status: Ordered Flonase 50 mcg/inh nasal spray 1 sprays, Nares, Both, 2 times a day, # 16 Gm, 0 Refills, Maintenance, 08/08/20 15:21:00 EST, [place], [facility], Partial fill upon patient request [...] 2 Refills, Maintenance, 11/06/20 17:02:00 EDT, [facility]/pharmacy [...] 05/19/20 16:20:00 EDT, Route to Pharmacy Electronically, [id number], [facility], 160.02, cm, 04/28/20 13:40:00 EDT, Height, 9... Start Date: 05/19/20 Stop Date: 11/15/20 Status: Ordered ProAir HFA 90 mcg/inh inhalation aerosol with adapter 2, puffs, Inhalation, Every 6 hours, PRN, # 1 each, Refills 5, Tot. Refills 5, Maintenance, 06/16/20 18:28:00 EST, Route to Pharmacy Electronically, [id number], [facility]/pharmacy#1972, 160.02, [...] Refills, Soft Stop, 10/07/20 9:06:00 EST, [facility]/pharmacy #1972, Partial fill upon patient request if the prescription is for a schedule II opioid drug., 160.... Start Date: 10/07/20 Status: Ordered verapamil 180 mg oral capsule, extended release 1 capsule = 180 mg, By Mouth, Daily, dose increase to 180mg qd 07/27/20, # 30 capsule, 5 Refills, Maintenance, 07/27/20 16:51:00 EST, [facility]/pharmacy [...] Active *Joseph Resendez, Care Coord inadavid, ICP [phone](Confirmed) Active 1Jantoinette Streeter [facility] [place] [facility] [place] 2Case [employer] Planners Parish Proctor ([facility]); Psychiatrist - Dr [...] BRCA1/2 negative,seen by genetics 6follow up at [facility] GI - Dr Richey. Multiple endoscopies, all normal. Other diagnosis is Non-ulcer dyspepsia Social History Social History Type Response Smoking Status Never smoker entered on: 02/07/14 Sex Female
--- OUTSIDE RECORDS SUMMARY | 2024-04-05 15:26 | XMS_ITS | Continuity of Care Document ---
Author Organization [facility] Address [address] [place] [address]- Care Team Providers Care Tooling Supervisor Name Role Phone Mitch Lopez Primary Care Physician Encounter [facility] Date(s): 06/02/22 - 07/02/[address] [address] Attending Physician: Jana Mercado Admitting [...] Administered at [facility] on [facility] in [place]. 2Location History: [facility] pharmacy 3Result Comment: [06/27/2014] PT HAD AT [facility] 4Admin Note: VIS GIVEN VIS DATE 01/30/2012 5Admin Note: flulaval vis given vis date 02/22/2011 6Admin Note: vis given 03/09/10 7Result Comment: Received at [facility] on [facility] [...] tablet, 0 Refills, Maintenance, 04/15/22 16:54:00 EDT, [facility]/pharmacy #1972, Partial fill [...] tablet, 0 Refills, Maintenance, 06/19/22 12:17:00 EST, [facility] STORE 38194, 160, cm, 06/07/22 9:36:00 EST, Height, 88.2, [...] Refills, Soft Stop, 06/07/22 10:25:00 EST, [place], [facility]/pharmacy #1972, Partial fill upon patient request if the prescription is for a schedule II opioid drug., 0.5 mL Intramuscul... Start Date: 06/07/22 Status: Ordered Shingrix intramuscular injection = 0.5 mL, Intramuscular, Once, repeat dose in 2 to 6 months, # 2 each, 0 Refills, Soft Stop, 03/15/22 14:32:00 EDT, [place], [facility]/pharmacy #1972, Partial fill [...] 10:22:00 EST, Aerosol, Route to Pharmacy Electronically, [id number], [facility]/pharmacy #1972, 160... Start Date: 06/07/22 Status: Ordered terazosin 2 mg oral capsule 1, capsule, By Mouth, Daily at bedtime, INSTR:CONTINUE TAKING TILL STONE EXPULSION OR TILL 4 WEEKS AND THEN DISCONTINUE., # 30 capsule, Refills 0, Maintenance, 03/28/22 14:40:00 EDT, Route to Pharmacy Electronically, [facility] STORE 40951, 160, cm, 03/15/22... Start Date: 03/28/22 Status: Ordered Tessalon Perles 100 mg oral capsule 1 capsule = 100 mg, By Mouth, 3 times a day, PRN Cough, # 21 capsule, 0 Refills, Maintenance, 06/17/22 17:34:00 EST, [facility]/pharmacy #1972, Partial [...] Refills, Maintenance, 06/16/22 9:46:00 EST, [facility], 160, cm, 06/07/22 9:36:00 EST, Height, 88.2, [...] Active OCD Confirmed Active *Joseph Resendez, Clinical Documentation Improvement Specialist, [facility] [phone] Confirmed Active 1Jantoinette Streeter [facility] Psychiatry [place] 2Case Pumpman Parish Proctor ([facility]); Psychiatrist - Dr Konstantin Narvaez 3admitted at adult partial hospitalization program (adult intensive short term out-pt psychiatric program). 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 BRCA1/2 negative,seen by genetics 6follow up at [facility] GI - Dr Richey. Multiple endoscopies, all normal. Other diagnosis is Non-ulcer dyspepsia Social History Social History Type Response Smoking Status Never smoker entered on: 02/07/14 Sex Female Patient Care team information Care Team Personnel Name: Mitch Lopez Position: [facility] PCO Associate Professional Member Role: PCP Address: Address: [address] [place] [address] [place] [address]- Care Team Related Persons Name: GABINO CASTANEDA Address: home [address] [place] [address] Name: BRE MIRANDA Address: [address] [place] [address] Name: ALEYDA BEE Address: [address] [place] [address] Name: ALEYDA BEE Address: home [address] [place] [address] Name: ROMIE PUENTES Address: home [address] [place] [address]
--- OUTSIDE RECORDS SUMMARY | 2024-04-05 15:26 | XMS_ITS | Continuity of Care Document ---
Author Organization [facility] Adult [facility] Address [address] [place] [address]- Care Team Providers Care Phlebotomy Coordinator Name Role Phone Mitch Lopez Primary Care Physician Encounter [facility] Date(s): 09/29/23 - 10/29/23 [facility] [address] [facility] [address] [place], [place] [phone] Encounter Diagnosis Chronic back pain(Discharge Diagnosis) - 06/22/19 Attending Physician: AdmJana leonardo Allergies, Adverse Reactions, Alerts [...] Administered at [facility] on [facility] in [place]. 2Location History: [facility] pharmacy 3Result Comment: [06/27/2014] PT HAD AT [facility] 4Admin Note: VIS GIVEN VIS DATE 01/30/2012 5Admin Note: flulaval vis given vis date 02/22/2011 6Admin Note: vis given 03/09/10 7Result Comment: Received at [facility] on [facility] 8Admin Note: VIS given 9Admin Note: [...] 2 Refills, Maintenance, 10/17/23 11:01:00 EDT, [facility] STORE 30102, 161, cm, 09/29/23 11:18:00 EST, Height, 82.1, [...] 18:55:00 EDT, [facility] STORE 43393, 161, cm, 03/29/23 14:07:00 EDT, Height, 85, [...] List Condition Confirmation Course Effective Dates Status [facility] Informant Asthma Confirmed 07/05/05 Active Bipolar disorder 1, 2, 3 Confirmed Active Chronic back pain Confirmed 07/05/05 Active Gastric nodule 4 Confirmed Active H/O ovarian cancer 5 Confirmed Active Hiatal hernia Confirmed Active Hysterectomy Confirmed Active Irritable bowel syndrome 6 Confirmed Active Kidney stone Confirmed Active Chronic migraine Confirmed Active OCD Confirmed Active *Joseph Resendez, Heat Treat Puller, ICP [phone] Confirmed Active 1Jantoinette Streeter [facility] Psychiatry [place] 2Case Route Delivery Manager Parish Proctor ([facility]); Psychiatrist [...] Professional Member Role: PCP Address: Address: [address] [place] [address] Care Team Related Persons Name: GABINO CASTANEDA Address: home [address] [place] [address] Name: JERROD BEAUCHAMP Address: [place], [place] Name: BRE MIRANDA Address: home [address] [place] [address] Name: ALEYDA BEE Address: home [address] [place] [address] Name: ALEYDA BEE Address: home [address] [place] [address] Name: ROMIE PUENTES Address: home [address] [place] [address]
--- OUTSIDE RECORDS SUMMARY | 2024-04-05 15:26 | XMS_ITS | Continuity of Care Document ---
Author Organization [facility] Address [address] [place] [address]- Care Team Providers Care Care Mgr Name Role Phone Mitch Lopez Primary Care Physician [phone] [facility]counter [facility] Date(s): 12/27/22 - 01/26/23 [facility] [address] [place] [address]- Allergies, Adverse Reactions, Alerts Substance Reaction Severity [...] Administered at [facility] on [facility] in [place]. 2Location History: [facility] pharmacy 3Result Comment: [06/27/2014] PT HAD AT [facility] 4Admin Note: VIS GIVEN VIS DATE 01/30/2012 5Admin Note: flulaval vis given vis date 02/22/2011 6Admin Note: vis given 03/09/10 7Result Comment: Received at [facility] on [facility] 8Admin [...] 1 Refills, Maintenance, 07/07/22 18:54:00 EST, [facility] STORE 59382, 30, APPLY 1 PATCH TOPICALLY DAILY NEEDED [...] 16:24:00 EDT, Route to Pharmacy Electronically, [facility]/pharmacy #1972, Partial fill upon patien... Start [...] 11 Refills, Maintenance, 07/12/22 14:20:00 EST, [facility]/pharmacy #1972, Partial fill upon patient request if the prescription is for a schedule II opioid drug., 160, cm, 07/12/22 13:43:00 EST, Height, 88.2,... Start Date: 07/12/22 Status: Ordered Spiriva Respimat 1.25 mcg/inh inhalation aerosol 2 puffs, Inhalation, Daily, # 1 each, 11 Refills, Maintenance, 11/21/22 12:15:00 EDT, [facility]/pharmacy #1972, Partial [...] 19:11:00 EDT, Aerosol, Route to Pharmacy Electronically, [id number], [facility]/pharmacy #1972, 161... Start Date: 11/24/22 Status: [...] Confirmed Active OCD Confirmed Active *Joseph Resendez, Pre Press Proofer, ICP [phone] Confirmed Active 1Jantoinette Streeter [facility] [place] [facility] [place] 2Case Grand Scribe Parish Proctor ([facility]); Psychiatrist - Dr Konstantin Narvaez 3admitted [...] Associate Professional Member Role: PCP Address: Address: [address] [place] [address] [place] [address]- [place] Care Team Related Persons Name: GABINO CASTANEDA Address: home [address] [place] [address] Name: JERROD BEAUCHAMP Address: [place], [place] Name: BRE MIRANDA Address: [address] [place] [address] Name: ALEYDA BEE Address: [address] [place] [address] Name: ALEYDA BEE Address: [address] [place] [address] Name: ROMIE PUENTES Address: home [address] [place] [address]
--- OUTSIDE RECORDS SUMMARY | 2024-04-05 15:26 | XMS_ITS | Continuity of Care Document ---
Author Organization [facility] Address [address] [place] [address]- Care Team Providers Care Aircraft Detail Draftsperson Name Role Phone Mitch Lopez Primary Care Physician [facility] 05/22/23 - 06/21/23 [facility] [address] [place], [place] [address] Allergies, Adverse Reactions, Alerts Substance [...] 18 07/18/06 Given 1Admin Note: Administered at [facility] on [facility] in [place]. 2Location History: [facility] 3Result Comment: [06/27/2014] PT HAD AT [facility] 4Admin Note: VIS GIVEN VIS DATE 01/30/2012 5Admin Note: flulaval vis given vis date 02/22/2011 6Admin Note: vis given 03/09/10 7Result Comment: Received at [facility] on [facility] 8Admin Note: [...] opioid drug. Start Date: 09/14/22 Status: Ordered [facility] MELATONIN 3 MG TABLET [facility] MELATONIN 3 MG TABLET, [...] tablet, 2 Refills, Maintenance, 06/09/23 19:43:00 EST, [facility] STORE 09970, 161, cm, 05/27/23 9:13:00 EDT, Height, 85, [...] tablet, 0 Refills, Maintenance, 03/31/23 18:55:00 EDT, [facility] STORE 44400, 161, cm, 03/29/23 14:07:00 EDT, Height, 85, [...] 19:11:00 EDT, Aerosol, Route to Pharmacy Electronically, [id number], [facility], 161... Start Date: 11/24/22 Status: [...] Refills, Maintenance, 03/22/23 11:50:00 EDT, [facility], 161, cm, 03/20/23 17:26:00 EDT, Height, 85, [...] Confirmed Active OCD Confirmed Active *Joseph Resendez, Clerical Order Filler, ICP [phone] Confirmed Active 1Jantoinette Streeter [facility] 2Case Casing Splitter Parish Proctor ([facility]); Psychiatrist - Dr Konstantin Narvaez [...] negative,seen by genetics 6follow up at [facility] GI - Dr Richey. Multiple endoscopies, all normal. Other diagnosis is Non-ulcer dyspepsia Social History Social History Type Response Smoking Status Never smoker entered on: 02/07/14 Sex Female Patient Care team information Care Team Personnel Name: Mitch Lopez Position: S PCO Associate Professional Member Role: PCP Address: Address: [address] [place] [address] [place] [address]- Care Team Related Persons Name: GABINO CASTANEDA Address: home [address] [place] [address] Name: JERROD BEAUCHAMP Address: [place], [place] Name: BRE MIRANDA Address: home [address] [place] [address] Name: ALEYDA BEE Address: home [address] [place] [address] Name: ALEYDA BEE Address: home [address] [place] [address] Name: ROMIE PUENTES Address: home [address] [place] [address]
--- OUTSIDE RECORDS SUMMARY | 2024-04-05 15:26 | XMS_ITS | Continuity of Care Document ---
Author Organization [facility] Address [address] [place] [address]- Care Team Providers Care Chef De Froid Name Role Phone Mitch Lopez Primary Care Physician Encounter [facility]): 08/01/23 - 08/31/23 [facility] [address] [place], [place] [address] Allergies, Adverse Reactions, Alerts Substance [...] Note: Administered at [facility] on [facility] in [place]. 2Location History: [facility] 3Result Comment: [06/27/2014] PT HAD AT [facility] 4Admin Note: VIS GIVEN VIS DATE 01/30/2012 5Admin Note: flulaval vis given vis date 02/22/2011 6Admin Note: vis given 03/09/10 7Result Comment: Received at [facility] on [facility] 8Admin Note: VIS given 9Admin Note: 2nd [...] Gm, 3 Refills, Maintenance, 08/28/23 14:07:00 EST, [facility]/pharmacy #1972, 25, 1 application Topically 4 times a day,PRN: NEEDED,Instr:MODERATE PAIN., 161, cm, 08/16/23 11:00:... Start Date: 08/28/23 Status: Ordered hydrOXYzine hydrochloride 25 mg oral tablet 1 tablet, By Mouth, 2 times a day, PRN NEEDED FOR ANXIETY, # 60 tablet, 2 Refills, Maintenance, 06/09/23 19:43:00 EST, [email or web address] STORE 77027, 161, cm, 05/27/23 9:13:00 EDT, Height, 85, kg, 09/16/22 6:46:00 EST, Dry Weight Start Date: 06/09/23 Status: Ordered lidocaine 5% topical film 1 patch, Topically, Daily, PRN NEEDED FOR PAIN REMOVE AFTER 12 HOURS, # 30 patch, 1 Refills, Maintenance, 07/28/23 17:33:00 EST, [email or web address] STORE 30732, 30, APPLY 1 PATCH TOPICALLY DAILY NEEDED [...] 03/31/23 18:55:00 EDT, [facility] STORE 69270, 161, cm, 03/29/23 14:07:00 EDT, Height, 85, [...] 10:54:00 EST, Aerosol, Route to Pharmacy Electronically, [id number], [facility], 161... Start Date: 07/05/23 Status: [...] Refills, Maintenance, 03/22/23 11:50:00 EDT, [facility], 161, cm, 03/20/23 17:26:00 EDT, Height, 85, [...] Confirmed Active OCD Confirmed Active *Joseph Resendez, Health And Safety Consultant, ICP [phone] Confirmed Active 1Jantoinette Streeter [facility] [place] 2Case Statistical Clerk Parish Proctor ([facility]); Psychiatrist - [...] BRCA1/2 negative,seen by genetics 6follow up at [facility] GI - Dr Richey. Multiple endoscopies, all normal. Other diagnosis is Non-ulcer dyspepsia Social History Social History Type Response Smoking Status Never smoker entered on: 02/07/14 Sex Female Patient Care team information Care Team Personnel Name: Mitch Lopez Position: S PCO Associate Professional Member Role: PCP Address: Address: [address] [place] [address] [place] [address]- Care Team Related Persons Name: GABINO CASTANEDA Address: home [address] [place] [address] Name: JERROD BEAUCHAMP Address: [place], [place] Name: BRE MIRANDA Address: home [address] [place] [address] Name: ALEYDA BEE Address: home [address] [place] [address] Name: ALEYDA BEE Address: home [address] [place] [address] Name: ROMIE PUENTES Address: home [address] [place] [address]
--- OUTSIDE RECORDS SUMMARY | 2024-04-05 15:27 | XMS_ITS | Continuity of Care Document ---
Author Organization [facility] Address [address] [place] [address]- Care Team Providers Care Burrer Machine Name Role Phone Mitch Lopez Primary Care Physician [phone] [facility] 06[facility]16/22 - 07/16/22 [facility] [address] [place] [address]- Attending Physician: Tammy Hall MD Admitting Physician: Tammy Hall MD Allergies, Adverse Reactions, Alerts Substance Reaction [...] Given Patient Refuses 1Admin Note: Administered at [facility] on [facility] in [place]. 2Location History: [facility] 3Result Comment: [06/27/2014] PT HAD AT [facility] 4Admin Note: VIS GIVEN VIS DATE 01/30/2012 5Admin Note: flulaval vis given vis date 02/22/2011 6Admin Note: vis given 03/09/10 7Result Comment: Received at [facility] on [facility] 8Admin Note: VIS given 9Admin Note: [...] tablet, 0 Refills, Maintenance, 04/15/22 16:54:00 EDT, [facility]/pharmacy #1972, Partial [...] Refills, Maintenance, 07/07/22 18:54:00 EST, [facility], 30, APPLY 1 PATCH TOPICALLY DAILY NEEDED [...] tablet, 0 Refills, Maintenance, 06/19/22 12:17:00 EST, [facility] STORE 23486, 160, cm, 06/07/22 9:36:00 EST, Height, 88.2, kg, 11/11/21 9:53:00 EDT,Dry Weight Start Date: 06/19/22 Status: Ordered Premarin 0.3 mg oral tablet 1 tablet = 0.3 mg, By Mouth, Daily, # 30 tablet, 11 Refills, Maintenance, 07/12/22 14:20:00 EST, [facility]/pharmacy #1972, Partial fill upon patient request if the prescription is for a schedule II opioid drug., 160, cm, 07/12/22 13:43:00 EST, Height, 88.2,... Start Date: 07/12/22 Status: Ordered Shingrix intramuscular injection = 0.5 mL, Intramuscular, Once, repeat dose in 2 to 6 months, # 2 each, 0 Refills, Soft Stop, 06/07/22 10:25:00 EST, Powder, [facility]/pharmacy #1972, Partial fill upon patient request if the prescription is for a schedule II opioid drug., 0.5 mL Intramuscul... Start Date: 06/07/22 Status: Ordered Shingrix intramuscular injection = 0.5 mL, Intramuscular, Once, repeat dose in 2 to 6 months, # 2 each, 0 Refills, Soft Stop, 03/15/22 14:32:00 EDT, Powder, [facility]/pharmacy #1972, Partial fill upon patient request if the prescription is for a schedule II opioid drug., 0.5 mL Intramuscul... Start Date: 03/15/22 Status: Ordered Spiriva Respimat 1.25 mcg/inh inhalation aerosol 2 puffs, Inhalation, Daily, # 1 each, 11 Refills, Maintenance, 06/07/22 10:22:00 EST, [facility]/pharmacy #1972, Partial fill [...] 10:22:00 EST, Aerosol, Route to Pharmacy Electronically, [id number], [facility]/pharmacy #1972, 160... Start Date: 06/07/22 Status: Ordered terazosin 2 mg oral capsule 1, capsule, By Mouth, Daily at bedtime, INSTR:CONTINUE TAKING TILL STONE EXPULSION OR TILL 4 WEEKS AND THEN DISCONTINUE., # 30 capsule, Refills 0, Maintenance, 03/28/22 14:40:00 EDT, Route to Pharmacy Electronically, [facility] STORE 63118, 160, cm, 03/15/22... Start Date: 03/28/22 Status: Ordered Tessalon Perles 100 mg oral capsule 1 capsule = 100 mg, By Mouth, 3 times a day, PRN Cough, # 21 capsule, 0 Refills, Maintenance, 06/17/22 17:34:00 EST, [facility]/pharmacy #1972, Partial fill [...] Refills, Maintenance, 06/16/22 9:46:00 EST, [facility], 160, cm, 06/07/22 9:36:00 EST, Height, 88.2, [...] Confirmed Active OCD Confirmed Active *Joseph Resendez, Optical Glass Sawyer, ICP [phone] Confirmed Active 1Jantoinette Streeter [facility] 2Case Science Analyst Parish Proctor ([facility]); Psychiatrist [...] negative,seen by genetics 6follow up at [facility] GI - Dr Richey. Multiple endoscopies, all normal. Other diagnosis is Non-ulcer dyspepsia Social History Social History Type Response Smoking Status Never smoker entered on: 02/07/14 Sex Female Patient Care team information Care Team Personnel Name: Mitch Lopez Position: S PCO Associate Professional Member Role: PCP Address: Address: [address] [place] [address] [place] [address]- Care Team Related Persons Name: GABINO CASTANEDA Address: home [address] [place] [address] Name: BRE MIRANDA Address: home [address] [place] [address] Name: ALEYDA BEE Address: home [address] [place], [place] Name: ALEYDA BEE Address: home [address] [place] [address] Name: ROMIE PUENTES Address: home [address] [place] [address]
--- OUTSIDE RECORDS SUMMARY | 2024-04-05 15:27 | XMS_ITS | Continuity of Care Document ---
Author Organization [facility] Address [address] [place] [address]- Care Team Providers Care Cashier Name Role Phone Mitch Lopez Primary Care Physician Encounter [facility] Date([facility]): 11/24/21 - 12/24/21 [facility] [address] [place] [address]- Allergies, Adverse Reactions, Alerts Substance Reaction Severity [...] Given Patient Refuses 1Admin Note: Administered at [facility] on [facility] in [place]. 2Location History: [facility] 3Result Comment: [06/27/2014] PT HAD AT [facility] 4Admin Note: VIS GIVEN VIS DATE 01/30/2012 5Admin Note: flulaval vis given vis date 02/22/2011 6Admin Note: vis given 03/09/10 7Result Comment: Received at [facility] on [facility] 8Admin Note: VIS given 9Admin [...] # 120 tablet, 2 Refills, [facility], 160, cm, 11/22/21 10:23:00 EDT, Height, 88.2, [...] 09/07/21 11:12:00 EST, Route to Pharmacy Electronically, [id number], [facility]/pharmacy #1972, 160.02, cm, 09/07/21 10:18:00 EST, [...] 17:59:00 EST, Aerosol, Route to Pharmacy Electronically, [id number], [facility], 160... Start Date: 09/08/21 Status: [...] # 30 capsule, 5 Refills, [facility], 160.02, cm, 07/05/21 10:30:00EST, Height, 85, kg, [...] Active OCD(Confirmed) Active *Joseph Resendez, [facility], ICP [phone](Confirmed) Active 1Jantoinette Streeter [facility] [place] 2Case Harvest Supervisor Parish [place] ([facility]); Psychiatrist - Dr Konstantin Narvaez 3admitted at adult partial hospitalization program (adult intensive short term out-pt psychiatric program). 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 BRCA1/2 negative,seen by genetics 6follow up at [facility] GI - Dr Richey. Multiple endoscopies, all normal. Other diagnosis is Non-ulcer dyspepsia Social History Social History Type Response Smoking Status Never smoker entered on: 02/07/14 Sex Female
--- OUTSIDE RECORDS SUMMARY | 2024-04-05 15:27 | XMS_ITS | Continuity of Care Document ---
Author Organization [facility] Address [address] [place] [address]- Care Team Providers Care Cage Maker Name Role Phone Mitch Lopez Primary Care Physician [phone] [facility] 07/18/23 - 08/17/23 [facility] [address] [place], [place] [address] Allergies, Adverse Reactions, Alerts Substance [...] Note: Administered at [facility] on [facility] in [place]. 2Location History: [facility] 3Result Comment: [06/27/2014] PT HAD AT [facility] 4Admin Note: VIS GIVEN VIS DATE 01/30/2012 5Admin Note: flulaval vis given vis date 02/22/2011 6Admin Note: vis given 03/09/10 7Result Comment: Received at [facility] on [facility] 8Admin Note: [...] Refills, Maintenance, 07/06/23 14:28:00 EST, [facility], 25, USE 1 APPLICATION TOPICALLY 4 TIMES A DAY NEEDED MODERATE PAIN, 161, cm, 07/05/23 10:50:00 EST, He... Start Date: 07/06/23 Status: Ordered hydrOXYzine hydrochloride 25 mg oral tablet 1 tablet, By Mouth, 2 times a day, PRN NEEDED FOR ANXIETY, # 60 tablet, 2 Refills, Maintenance, 06/09/23 19:43:00 EST, [facility], 161, cm, 05/27/23 9:13:00 EDT, Height, 85, kg, 09/16/22 6:46:00 EST, Dry Weight Start Date: 06/09/23 Status: Ordered lidocaine 5% topical film 1 patch, Topically, Daily, PRN NEEDED FOR PAIN REMOVE AFTER 12 HOURS, # 30 patch, 1 Refills, Maintenance, 07/28/23 17:33:00 EST, [facility], 30, APPLY 1 PATCH TOPICALLY DAILY NEEDED FOR PAIN REMOVE AFTER 12 HOURS, 161, cm, 07/20/23 10:04:00... Start Date: 07/28/23 Status: Ordered Lidoderm 5% film 1 patch, Topically, Daily, remove patches after 12 hours, # 30 patch, 0 Refills, Maintenance, 08/16/23 11:10:00 EST, [facility]/pharmacy #1972, Partial fill upon [...] 03/31/23 18:55:00 EDT, [facility] STORE 89222, 161, cm, 03/29/23 14:07:00 EDT, Height, 85, [...] 10:54:00 EST, Aerosol, Route to Pharmacy Electronically, [id number], [facility], 161... Start Date: 07/05/23 Status: [...] Refills, Maintenance, 03/22/23 11:50:00 EDT, [facility], 161, cm, 03/20/23 17:26:00 EDT, Height, 85, [...] Confirmed Active OCD Confirmed Active *Joseph Resendez, Mission Analyst, ICP [phone] Confirmed Active 1Jantoinette Streeter [facility] [place] [facility] [place] 2Case Senior Operations Analyst Parish Proctor ([facility]); Psychiatrist - Dr Konstantin Narvaez 3admitted at adult partial hospitalization program (adult intensive short term out-pt psychiatric program). 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 BRCA1/2 negative,seen by genetics 6follow up at [facility] GI - Dr Richey. Multiple endoscopies, all normal. Other diagnosis is Non-ulcer dyspepsia Social History Social History Type Response Smoking Status Never smoker entered on: 02/07/14 Sex Female Patient Care team information Care Team Personnel Name: Mitch Lopez Position: S PCO Associate Professional Member Role: PCP Address: Address: [address] [place] [address] [place] [address]- [place] Care Team Related Persons Name: GABINO CASTANEDA Address: home [address] [place] [address] Name: JERROD BEAUCHAMP Address: [place], [place] Name: BRE MIRANDA Address: home [address] [place] [address] Name: ALEYDA BEE Address: [address] [place] [address] Name: ALEYDA BEE Address: home [address] [place] [address] Name: ROMIE PUENTES Address: home [address] [place] [address]
--- OUTSIDE RECORDS SUMMARY | 2024-04-05 15:27 | XMS_ITS | Continuity of Care Document ---
Author Organization [facility] Address [address] [place] [address]- Care Team Providers Care Safety Relief Valve Technician Name Role Phone Mitch Lopez Primary Care Physician [phone] [facility]): 03/30/23 - 06/01/23 [facility] [address] [place], [place] [address] Attending Physician: Not on Staff, Attending MD Allergies, Adverse Reactions, Alerts Substance Reaction Severity Status trimethoprim Urticaria Active sulfa drugs Breathing problem Active Motrin Breathing problem GI upset Active Bactrim bruising Active prochlorperazine Unknown Active Compazine unknown Active Immunizations Given and [...] 07/18/06 Given 1Admin Note: Administered at [facility] on [facility] in [place]. 2Location History: [facility] 3Result Comment: [06/27/2014] PT HAD AT [facility] 4Admin Note: VIS GIVEN VIS DATE 01/30/2012 5Admin Note: flulaval vis given vis date 02/22/2011 6Admin Note: vis given 03/09/10 7Result Comment: Received at [facility] [...] drug. Start Date: 09/14/22 Status: Ordered [facility] MELATONIN 3 MG TABLET [facility] MELATONIN 3 MG TABLET, 1, [...] tablet, 2 Refills, Maintenance, 03/31/23 18:55:00 EDT, [facility] STORE 61120, 161, cm, 03/29/23 14:07:00 EDT, Height, 85, [...] 0 Refills, Maintenance, 03/31/23 18:55:00 EDT, [facility] STORE 66215, 161, cm, 03/29/23 14:07:00 EDT, Height, 85, [...] 19:11:00 EDT, Aerosol, Route to Pharmacy Electronically, [id number], [facility], 161... Start Date: 11/24/22 Status: [...] Refills, Maintenance, 03/22/23 11:50:00 EDT, [facility], 161, cm, 03/20/23 17:26:00 EDT, Height, 85, [...] Confirmed Active OCD Confirmed Active *Joseph Resendez, Stock Transfer Clerk, ICP [phone] Confirmed Active 1Jantoinette Streeter [facility] [place] [facility] [place] 2Case Cafeteria Server Parish Proctor ([facility]); Psychiatrist [...] BRCA1/2 negative,seen by genetics 6follow up at [facility] GI - Dr Richey. Multiple endoscopies, all normal. Other diagnosis is Non-ulcer dyspepsia Social History Social History Type Response Smoking Status Never smoker entered on: 02/07/14 Sex Female Patient Care team information Care Team Personnel Name: Mitch Lopez Position: S PCO Associate Professional Member Role: PCP Address: Address: [address] [place] [address] [place] [address]- Care Team Related Persons Name: GABINO CASTANEDA Address: home [address] [place] [address] Name: JERROD BEAUCHAMP Address: [place], [place] Name: BRE MIRANDA Address: home [address] [place], [place] Name: ALEYDA BEE Address: home [address] [place], [place] Name: ALEYDA BEE Address: home [address] [place], [place] Name: ROMIE PUENTES Address: home [address] [place] [address]
--- OUTSIDE RECORDS SUMMARY | 2024-04-05 15:27 | XMS_ITS | Continuity of Care Document ---
Author Organization [facility] Address [address] [place] [address]- Care Team Providers Care Signs And Displays Sales Representative Name Role Phone Mitch Lopez Primary Care Physician Encounter [facility] Date([facility]): 01/20/22 - 03/23/22 [facility] [address] [place] [id number] Attending Physician: Mitch Lopez Admitting [...] Administered at [facility] on [facility] in [place]. 2Location History: [facility] pharmacy 3Result Comment: [06/27/2014] PT HAD AT [facility] 4Admin Note: VIS GIVEN VIS DATE 01/30/2012 5Admin Note: flulaval vis given vis date 02/22/2011 6Admin Note: vis given 03/09/10 7Result Comment: Received at [facility] on [facility] 8Admin Note: VIS given 9Admin Note: 2nd [...] # 30 tablet, 0 Refills, [facility], 160, cm, 01/20/22 15:38:00 EDT, Height, 88.2, kg, 11/11/21 9:53:00 EDT, Dry Weight Start Date: 02/07/22 Status: Ordered meloxicam 7.5 mg oral tablet 1 tablet, By Mouth, Daily, PRN NEEDED FOR PAIN WITH FOOD, # 30 tablet, 1 Refills, [facility], 160, cm, 01/20/22 15:38:00 EDT, Height, 88.2, [...] 01/03/22 11:58:00 EDT, Route to Pharmacy Electronically, [id number], [facility], 160, cm, 01/03/22 11:03:00 EDT, [...] 11:56:00 EDT, Aerosol, Route to Pharmacy Electronically, [id number], [facility], 160... Start Date: 01/03/22 Status: [...] Mouth, Daily, # 30 capsule, 5 Refills, [facility] STORE 65541, 160.02, cm, 07/05/21 10:30:00EST, Height, 85, kg, [...] Active *Joseph Resendez, Care Coord inator, ICP [phone](Confirmed) Active 1Jantoinette Streeter [facility] [place] 2Case Livestock Handler Parish Proctor ([facility]); Psychiatrist - Dr [...] BRCA1/2 negative,seen by genetics 6follow up at [facility] GI - Dr Richey. Multiple endoscopies, all normal. Other diagnosis is Non-ulcer dyspepsia Social History Social History Type Response Smoking Status Never smoker entered on: 02/07/14 Sex Female
--- OUTSIDE RECORDS SUMMARY | 2024-04-05 15:27 | XMS_ITS | Continuity of Care Document ---
Author Organization [facility] Address [address] [place] [address]- Care Team Providers Care Electroplating Laborer Name Role Phone Mitch Lopez Primary Care Physician [facility]counter [facility] Date(s): 02/16/21 - 03/18/21 [facility] [address] [place] [address]- Allergies, Adverse Reactions, Alerts Substance Reaction Severity [...] Note: Administered at [facility] on [address] in [place]. 4Location History: [facility] pharmacy [...] Gm, 0 Refills, Maintenance, 08/08/20 15:21:00 EST, [place], [facility], Partial fill upon patient request [...] tablet, 2 Refills, Maintenance, 10/07/20 9:05:00 EST, [facility]/pharmacy #1972, Partial fill upon patient request if the prescription is for a schedule II opioid drug., 160.02, cm, 10/07/20 8:15:00 EST, [place]... Start Date: 10/07/20 Status: Ordered naproxen 500 mg oral tablet 1 tablet = 500 mg, By Mouth, 2 times a day, # 28 tablet, 0 Refills, Maintenance, 03/08/21 18:54:00 EDT, Tablet, [facility]/pharmacy #1972, Partial [...] 05/19/20 16:20:00 EDT, Route to Pharmacy Electronically, [id number], [facility]/pharmacy#1972, 160.02, cm, 04/28/20 13:40:00 EDT, Height, 9... Start Date: 05/19/20 Stop Date: 11/15/20 Status: Ordered ProAir HFA 90 mcg/inh inhalation aerosol with adapter 2, puffs, Inhalation, Every 6 hours, PRN, # 1 each, Refills 5, Tot. Refills 5, Maintenance, 06/16/20 18:28:00 EST, Route to Pharmacy Electronically, [id number], [facility]/pharmacy#1972, 160.02, cm, 05/27/20 13:10:00 [...] Refills, Maintenance, 02/04/21 9:28:00 EDT, [facility], 160.02, cm, 01/26/21 9:12:00 EDT, Height, 88.8, [...] Active *Lukisha Mal, Care Coord avril, ICP [phone](Confirmed) Active 1Jantoinette Streeter [facility] [place] [facility] [place] 2Case Corrugated Fastener Driver Parish Proctor ([facility]); Psychiatrist - Dr Konstantin Narvaez [...]
--- OUTSIDE RECORDS SUMMARY | 2024-04-05 15:27 | XMS_ITS | Continuity of Care Document ---
Author Organization [facility] Adult [facility] Address [address] [place] [address]- Care Team Providers Care Wood Casket Assembler Name Role Phone Mitch Lopez Primary Care Physician Encounter [facility] Date(s): 03/05/20 - 04/04/20 [facility] [address] [place] [address]- [facility] Allergies, Adverse Reactions, Alerts Substance Reaction [...] Given Patient Refuses 1Admin Note: Administered at [facility] on [address] [facility] [address] in [place]. 2Location History: [facility] pharmacy 3Result Comment: [06/27/2014] PT HAD AT [facility] 4Admin Note: VIS GIVEN VIS [...] Gm, 2 Refills, Maintenance, 03/04/20 12:12:00 EDT, [facility]/pharmacy #1972, 160.02, cm, 03/04/20 11:50:00 EDT, Height, [...] 03/12/20 7:19:00 EDT, Route to Pharmacy Electronically, [id number], [facility]/pharmacy #1972, 160.02, cm, 03/04/20 11:50:00 EDT, Height, [...] DAYS, # 30 capsule, 11 Refills, Maintenance, [facility] STORE 76798, 160.02, cm, 10/11/19 15:24:00 EDT, Height, 85.91, [...] Active *Joseph Resendez, Care Coord inator, ICP [phone](Confirmed) Active 1Jantoinette Streeter [facility] 2Case Economic Historian Parish Proctor ([facility]); Psychiatrist - Dr Konstantin Narvaez 3admitted at adult partial hospitalization program (adult intensive short term out-pt psychiatric program). 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 BRCA1/2 negative,seen by genetics 6follow up at [facility] GI - Dr Richey. Multiple endoscopies, all normal. Other diagnosis is Non-ulcer dyspepsia Social History Social History Type Response Smoking Status Never smoker entered on: 02/07/14 Sex Female
--- OUTSIDE RECORDS SUMMARY | 2024-04-05 15:27 | XMS_ITS | Continuity of Care Document ---
Author Organization [facility] Address [address] [place] [address]- Care Team Providers Care Conference Reservationist Name Role Phone Mitch Lopez Primary Care Physician Encounter [facility] Date(s): 12/27/22 - 01/26/23 [facility] [address] [place] [address]- Allergies, Adverse Reactions, Alerts Substance Reaction Severity [...] Given Patient Refuses 1Admin Note: Administered at [facility] on [facility] in [place]. 2Location History: [facility] pharmacy 3Result Comment: [06/27/2014] PT HAD AT [facility] 4Admin Note: VIS GIVEN VIS DATE 01/30/2012 5Admin Note: flulaval vis given vis date 02/22/2011 6Admin Note: vis given 03/09/10 7Result Comment: Received at [facility] on [facility] 8Admin Note: VIS given 9Admin [...] patch, 1 Refills, Maintenance, 07/07/22 18:54:00 EST, [facility] STORE 37657, 30, APPLY 1 PATCH TOPICALLY DAILY NEEDED [...] 10/31/22 16:24:00 EDT, Route to Pharmacy Electronically, [facility]/pharmacy #1972, Partial fill upon patien... [...] tablet, 11 Refills, Maintenance, 07/12/22 14:20:00 EST, [facility]/pharmacy #1972, Partial fill upon patient request if the prescription is for a schedule II opioid drug., 160, cm, 07/12/22 13:43:00 EST, Height, 88.2,... Start Date: 07/12/22 Status: Ordered Spiriva Respimat 1.25 mcg/inh inhalation aerosol 2 puffs, Inhalation, Daily, # 1 each, 11 Refills, Maintenance, 11/21/22 12:15:00 EDT, [facility]/pharmacy #1972, Partial fill upon [...] 19:11:00 EDT, Aerosol, Route to Pharmacy Electronically, [id number], [facility]/pharmacy #1972, 161... Start Date: 11/24/22 Status: Ordered [...] Confirmed Active OCD Confirmed Active *Joseph Resendez, Naphthalene Still Operator, ICP [phone] Confirmed Active 1Jantoinette Streeter [facility] [place] [facility] [place] 2Case Internal Grinder Set Up Operator Parish Proctor ([facility]); Psychiatrist - Dr Konstantin Narvaez 3admitted at adult partial hospitalization program (adult intensive short term out-pt psychiatric program). 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 BRCA1/2 negative,seen by genetics 6follow up at [facility] GI - Dr Richey. Multiple endoscopies, all normal. Other diagnosis is Non-ulcer dyspepsia Social History Social History Type Response Smoking Status Never smoker entered on: 02/07/14 Sex Female Patient Care team information Care Team Personnel Name: Mitch Lopez Position: S PCO Associate Professional Member Role: PCP Address: Address: [address] [place] [address] [place] [address]- [place] Care Team Related Persons Name: GABINO CASTANEDA Address: home [address] [place] [address] Name: JERROD BEAUCHAMP Address: [place], [place] Name: BRE MIRANDA Address: home [address] [place] [address] Name: ALEYDA BEE Address: home [address] [place] [address] Name: ALEYDA BEE Address: home [address] [place] [address] Name: ROMIE PUENTES Address: home [address] [place] [address]
--- OUTSIDE RECORDS SUMMARY | 2024-04-05 15:27 | XMS_ITS | Continuity of Care Document ---
Author Organization [facility] Address [address] [place] [address]- Care Team Providers Care Long Distance Billing Operator Name Role Phone Mitch Lopez Primary Care Physician [facility]): 02[facility]23/23 - 03/02/23 [facility] [address] [place] [address]- Encounter Diagnosis Acute cystitis(Discharge Diagnosis) - 02/23/23 Attending Physician: Wu Taylor MD Referring Physician: [...] 1Admin Note: Administered at [facility] on [facility] in [place]. 2Location History: [facility] pharmacy 3Result Comment: [06/27/2014] PT HAD AT [facility] 4Admin Note: VIS GIVEN VIS DATE 01/30/2012 5Admin Note: flulaval vis given vis date 02/22/2011 6Admin Note: vis given 03/09/10 7Result Comment: Received at [facility] on [facility] 8Admin Note: VIS given 9Admin Note: [...] 1 Refills, Maintenance, 07/07/22 18:54:00 EST, [facility] STORE 64989, 30, APPLY 1 PATCH TOPICALLY DAILY NEEDED [facility] Partial fill upon patien... Start Date: [...] 11 Refills, Maintenance, 07/12/22 14:20:00 EST, [facility]/pharmacy #1972, [...] 19:11:00 EDT, Aerosol, Route to Pharmacy Electronically, [id number], [facility]/pharmacy #1972, 161... Start Date: 11/24/22 Status: Ordered [...] 3 Confirmed Active Chronic back pain Confirmed 12/6/05 Active Gastric nodule 4 Confirmed Active H/O ovarian cancer 5 Confirmed Active Hiatal hernia Confirmed Active Hysterectomy Confirmed Active Irritable bowel syndrome 6 Confirmed Active Kidney stone Confirmed Active Chronic migraine Confirmed Active OCD Confirmed Active *Joseph Resendez, Rough And Trueing Machine Operator, [facility] [phone] Confirmed Active 1Jwonglarry Streeter [facility] 2Case Parer Bhumi Proctor ([facility]); Psychiatrist - Dr Konstantin Narvaez 3admitted at adult partial hospitalization program (adult intensive short term out-pt psychiatric program). 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 BRCA1/2 negative,seen by genetics 6follow up at [facility] GI - Dr Richey. Multiple endoscopies, all normal. Other diagnosis is Non-ulcer dyspepsia Diagnosis Diagnosis Type Effective Dates Health Status Cl inical Service Informant Acute cystitis Discharge Diagnosis 02/23/23 Vital Signs Most recent to oldest [Reference Range]: 1 Height 161 cm (02/23/23 3:32 PM) Oxygen Saturation [94-100 %] 98 % (02/23/23 3:32 PM) Pulse Rate [55-90 bpm] 66 bpm (02/23/23 3:32 PM) Blood Pressure [90-138/55-84 mm Hg] 129/ 64mm Hg (02/23/23 3:32 PM) Temperature [96.8-100.4 DegF] 97 DegF (02/23/23 3:32 PM) Mode of Delivery (Oxygen) Room air (02/23/23 3:32 PM) Blood pressure sites Arm, left (02/23/23 3:32 PM) Temperature Route Temporal (02/23/23 3:32 PM) Social History Social History Type Response Smoking Status Never smoker entered on: 02/07/14 Sex Female Note * Richmond Alonzo: PERFORM, SIGN, VERIFY Event Display: Patient Education/Instruction Authored Date: [id number] [facility] *[facility] Clinical Summary Name BHUMI BEAUCHAMP Age 62 Years 1960 PCP Lyn CASAREZ, Mitch PCP Visit Date 02/23/2023 14:52:00 Additional Instructions: Scheduled Appointments?? Future Appointments ?No Future Appointments Scheduled Follow-Up Instructions ?? Diagnosis Acute cystitis without hematuria Medications: Please continue your medications until treatment is completed or stopped by your provider. Discuss any questions related to medications with your provider. New Medications [facility]/pharmacy #1972, [address] [place], [place] [id number], [phone] Cephalexin (cephalexin monohydrate 500 mg oral capsule) 1 capsule Oral every 12 hours for 5 Days. Refills: 0. Next Dose: Medications to Continue with No Changes These [...] trimethoprim Medications Given This Visit Future Orders ?Urine Culture? Order Date:02/23/23?- Complete on or after?02/23/23 Vital Signs Height 161 cm Weight BMI Blood Pressure 129 mm Hg/64 mm Hg Temperature 97 DegF Pulse Rate 66 bpm Respiratory Rate 02 Sat Mode of Delivery 98 %/Room air You can now view a summary of your hospital visit from the comfort of your home through a free online portal called [facility]. [facility] is a website that allows you to securely view your medical information including discharge summary, medications and follow-up visits. ??You can alsosend a secure electronic message to your doctor???s office to request appointments, renew medications or just ask a question. You can enroll at [email or web address] or register during your next office visit. [...] primary care provider, you may find a [facility] provider by calling [facility] [employer] [facility] at [phone]. For information about the plan of care [...] Associate Professional Member Role: PCP Address: Address: [address] [place] [address]- Care Team Related Persons Name: GABINO CASTANEDA Address: [address] [place] [address] Name: JERROD BEAUCHAMP Address: home [place], [place] Name: BRE MIRANDA Address: home [address] [place] [address] Name: ALEYDA BEE Address: home [address] [place] [address] Name: ALEYDA BEE Address: home [address] [place] [address] Name: ROMIE PUENTES Address: home [address] [place] [address]
--- OUTSIDE RECORDS SUMMARY | 2024-04-05 15:27 | XMS_ITS | Continuity of Care Document ---
Author Organization [facility] Address [address] [place] [address], [address] [place] [address]- Care Team Providers Care De Icer Kit Assembler Name Role Phone Mitch Lopez Primary Care Physician Encounter [facility] Date(s): 10/07/19 - 10/17/19 [facility] [address] [place] [address] Drive, [address] [place] [address]- [facility] Attending Physician: Jana Mercado Admitting [...] 06/18/08 Give n Influenza Vaccine (oldterm) 15 10/24/07 Given Pneumococcal Vacc (oldterm) 16 07/18/06 Given Influenza Virus Vaccine (oldterm) 17 05/03/06 Give n Not Given Vaccine Date Status Refusal Reason pneumococcal 23-valent vaccine 10/13/13 Not Given Patient Refuses 1Admin Note: Administered at [facility] on [facility] in [place]. 2Location History: [facility] pharmacy 3Result Comment: [06/27/2014] PT [...] 07/25/19 14:29:00 EST, Route to Pharmacy Electronically, [id number], [facility], 158, cm, 07/25/19 13:55:00 EST, Height, [...] Refills, Maintenance, 08/01/19 15:54:00 EST, ER Capsule, [facility]/pharmacy #1972, Patient lost medication. Please fill [...] Chronic migraine(Confirmed) Active OCD(Confirmed) Active 1Jantoinette Streeter [facility] [place] 2Case Cooperative Education Coordinator Parish Proctor ([facility]); [...] negative,seen by genetics 6follow up at [facility] GI - Dr Richey. Multiple endoscopies, all normal. Other diagnosis is Non-ulcer dyspepsia Social History Social History Type Response Smoking Status Never smoker entered on: 02/07/14 Sex Female
--- OUTSIDE RECORDS SUMMARY | 2024-04-05 15:27 | XMS_ITS | Continuity of Care Document ---
Author Organization [facility] Address [address] [place] [address]- Care Team Providers Care Truck Hopper Name Role Phone Mitch Lopez Primary Care Physician Encounter [facility] Date(s): 10/23/23 - 11/22/23 [facility] [address] [facility] [place], [place] [phone] Allergies, Adverse Reactions, Alerts Substance Reaction Severity [...] Administered at [facility] on [facility] in [place]. 2Location History: [facility] pharmacy 3Result Comment: [06/27/2014] PT HAD AT [facility] 4Admin Note: VIS GIVEN VIS DATE 01/30/2012 5Admin Note: flulaval vis given vis date 02/22/2011 6Admin Note: vis given 03/09/10 7Result Comment: Received at [facility] on [facility] 8Admin Note: VIS given 9Admin Note: [...] each, 11 Refills, Maintenance, 10/23/23 12:15:00 EDT, [facility]/pharmacy #1972, Partial fill upon patient request [...] Gm, 3 Refills, Maintenance, 08/28/23 14:07:00 EST, [facility]/pharmacy #1972, 25, 1 application Topically 4 times a day,PRN: NEEDED,Instr:MODERATE PAIN., 161, cm, 08/16/23 11:00:... Start Date: 08/28/23 Status: Ordered hydrOXYzine hydrochloride 25 mg oral tablet 1 tablet, By Mouth, 2 times a day, PRN NEEDED FOR ANXIETY, # 60 tablet, 2 Refills, Maintenance, 10/17/23 11:01:00 EDT, [facility] STORE 14743, 161, cm, 09/29/23 11:18:00 EST, Height, 82.1, [...] 18:55:00 EDT, [facility] STORE 65294, 161, cm, 03/29/23 14:07:00 EDT, Height, 85, [...] Confirmed Active OCD Confirmed Active *Joseph Resendez, Gaming Cashier, ICP [phone] Confirmed Active 1Jantoinette Streeter [facility] [place] 2Case Hand Bobbin Cleaner Parish Proctor ([facility]); Psychiatrist [...] BRCA1/2 negative,seen by genetics 6follow up at [facility] GI - Dr Richey. Multiple endoscopies, all normal. Other diagnosis is Non-ulcer dyspepsia Social History Social History Type Response Smoking Status Never smoker entered on: 02/07/14 Sex Female Patient Care team information Care Team Personnel Name: Mitch Lopez Position: S PCO Associate Professional Member Role: PCP Address: Address: [address] [place] [address] [place] [address]- Care Team Related Persons Name: GABINO CASTANEDA Address: home [address] [place] [address] Name: JERROD BEAUCHAMP Address: [place], [place] Name: BRE MIRANDA Address: home [address] [place] [address] Name: ALEYDA BEE Address: home [address] [place] [address] Name: ALEYDA BEE Address: home [address] [place] [address] Name: ROMIE PUENTES Address: home [address] [place] [address]
--- OUTSIDE RECORDS SUMMARY | 2024-04-05 15:27 | XMS_ITS | Continuity of Care Document ---
Author Organization [facility] Address [address] [place] [address]- Care Team Providers Care Typing Pool Supervisor Name Role Phone Mitch Lopez Primary Care Physician [phone] [facility]counter [facility](s): 04/14/22 - 05/14/22 [facility] [address] [place] [id number] Allergies, Adverse Reactions, Alerts Substance [...] Administered at [facility] on [facility] in [place]. 2Location History: [facility] pharmacy 3Result Comment: [06/27/2014] PT HAD AT [facility] 4Admin Note: VIS GIVEN VIS DATE 01/30/2012 5Admin Note: flulaval vis given vis date 02/22/2011 6Admin Note: vis given 03/09/10 7Result Comment: Received at [facility] on [facility] 8Admin Note: VIS [...] tablet, 0 Refills, Maintenance, 04/15/22 16:54:00 EDT, [facility]/pharmacy #1972, Partial fill upon patient request if the prescription is for aschedule II opioid drug., 160, cm, 03/15/22 14:14:0... Start Date: 04/15/22 Status: Ordered albuterol CFC free 90 mcg/inh inhalation aerosol 1, puffs, Inhalation, Every 4 hours, PRN, # 6.7 Gm, Refills 3, Tot. Refills 3, Maintenance, 05/04/22 18:39:00 EDT, Aerosol, Route to Pharmacy Electronically, [id number], [facility], [place] to substitute ventolin, 160, [...] 30 tablet, 3 Refills, Maintenance, 01/03/22 11:56:00EDT, [facility]/pharmacy #1972, Partial fill [...] tablet, 0 Refills, Maintenance, 05/12/22 13:13:00 EDT, [facility] STORE 19533, 160, cm, 05/04/22 16:09:00 EDT, Height, 88.2, [...] 01/03/22 11:58:00 EDT, Route to Pharmacy Electronically, [id number], [facility]/pharmacy #1972, 160, cm, 01/03/22 11:03:00 [...] 11:56:00 EDT, Aerosol, Route to Pharmacy Electronically, [id number], [facility]/pharmacy #1972, 160... Start Date: 01/03/22 Status: Ordered terazosin 2 mg oral capsule 1, capsule, By Mouth, Daily at bedtime, INSTR:CONTINUE TAKING TILL STONE EXPULSION OR TILL 4 WEEKS AND THEN DISCONTINUE., # 30 capsule, Refills 0, Maintenance, 03/28/22 14:40:00 EDT, Route to Pharmacy Electronically, [facility] STORE 25030, 160, cm, 03/15/22... Start Date: 03/28/22 Status: [...] # 30 capsule, 5 Refills, [facility], 160.02, cm, 07/05/21 10:30:00EST, Height, 85, kg, [...] Confirmed Active OCD Confirmed Active *Joseph Resendez, Graves Registration Specialist, ICP [phone] Confirmed Active 1Jantoinette Streeter [facility] [place] 2Case Supervisor Aircraft Cleaning Parish Proctor ([facility]); Psychiatrist - Dr Konstantin Narvaez 3admitted at adult partial hospitalization program (adult intensive short term out-pt psychiatric program). 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 BRCA1/2 negative,seen by genetics 6follow up at [facility] GI - Dr Richey. Multiple endoscopies, all normal. Other diagnosis is Non-ulcer dyspepsia Social History Social History Type Response Smoking Status Never smoker entered on: 02/07/14 Sex Female Patient Care team information Personnel Name: Mitch Lopez Address: Address: [address] [place] [address]
--- OUTSIDE RECORDS SUMMARY | 2024-04-05 15:27 | XMS_ITS | Continuity of Care Document ---
Author Organization [facility] Address [address] [place] [address]- Care Team Providers Care Furrier Apprentice Name Role Phone Mitch Lopez Primary Care Physician [facility] 07/07/20 - 08/06/20 [facility] [address] [place] [address]- Allergies, Adverse Reactions, Alerts Substance Reaction Severity [...] Received at [facility] on [address] 2Admin Note: VIS given 3Admin Note: Administered at [facility] on [address] in [place]. 4Location History: [facility] pharmacy 5Result Comment: [06/27/2014] PT HAD AT [facility] CENTER [facility] 6Admin Note: VIS GIVEN VIS DATE [...] Gm, 2 Refills, Maintenance, 03/04/20 12:12:00 EDT, [facility]/pharmacy #1972, 160.02, cm, 03/04/20 11:50:00 EDT, Height, [...] tablet, 2 Refills, Maintenance, 07/29/20 17:21:00 EST, [facility]/pharmacy #1972, Partial fill upon patient request if the prescription is for a schedule II opioid drug.... Start Date: 07/29/20 Status: Ordered ibuprofen 600 mg oral tablet 600 mg, 1, tablet, By Mouth, 4 times a day, PRN, # 40 tablet, Refills 0, Tot. Refills 0, Maintenance, for pain, 07/15/20 20:01:00 EST, Route to Pharmacy Electronically, [facility]/pharmacy #1972, Partial fill upon patient request if the prescription is for a... Start Date: 07/15/20 Status: Ordered melatonin 3 mg oral tablet 1 tablet = 3 mg, By Mouth, Daily at bedtime, for 30 days, to help with sleep., # 30 tablet, 1 Refills, Acute 09/27/20 17:22:00 EST, 07/29/20 17:22:00 EST, [facility]/pharmacy #1972, Partial [...] 05/19/20 16:20:00 EDT, Route to Pharmacy Electronically, [id number], [facility]/pharmacy#1972, 160.02, cm, 04/28/20 13:40:00 EDT, Height, 9... Start Date: 05/19/20 Stop Date: 11/15/20 Status: Ordered ProAir HFA 90 mcg/inh inhalation aerosol with adapter 2, puffs, Inhalation, Every 6 hours, PRN, # 1 each, Refills 5, Tot. Refills 5, Maintenance, 06/16/20 18:28:00 EST, Route to Pharmacy Electronically, [id number], [facility]/pharmacy#1972, 160.02, cm, 05/27/20 13:10:00 EDT, Height, 9... [...] 0 Refills, Soft Stop, 07/27/20 16:51:00 EST, [facility]/pharmacy #1972, Partial fill upon patient request if theprescription is for a schedule II opioid drug., 160... Start Date: 07/27/20 Status: Ordered verapamil 100 mg oral capsule, extended release See Instructions, 1 CAPSULE BY MOUTH DAILY AT BEDTIME,X90 DAYS, # 30 capsule, 11 Refills, Maintenance, [facility], 160.02, cm, 10/11/19 15:24:00 EDT, Height, 85.91, [...] Active *Joseph Resendez, Care Coord inator, ICP [phone](Confirmed) Active 1Jantoinette Streeter [facility] [place] 2Case Mental Retardation Aide [place] ([facility]); Psychiatrist - Dr Konstantin Narvaez 3admitted [...]
--- OUTSIDE RECORDS SUMMARY | 2024-04-05 15:27 | XMS_ITS | Continuity of Care Document ---
Author Organization [facility] Address [address] [place] [address]- Care Team Providers Care Snubber Name Role Phone Mitch Lopez Primary Care Physician [facility] 09/08/23 - 10/08/23 [facility] [address] [place] [id number] Allergies, Adverse Reactions, Alerts Substance Reaction Severity Status trimethoprim Urticaria Active prochlorperazine Unknown Active Motrin Breathing problem [...] 18 07/18/06 Given 1Admin Note: Administered at [facility] on [facility] in [place]. 2Location History: [facility] pharmacy 3Result Comment: [06/27/2014] PT HAD AT [facility] 4Admin Note: VIS GIVEN VIS DATE 01/30/2012 5Admin Note: flulaval vis given vis date 02/22/2011 6Admin Note: vis given 03/09/10 7Result Comment: Received at [facility] on [facility] 8Admin Note: VIS given 9Admin [...] opioid drug. Start Date: 09/14/22 Status: Ordered [facility] MELATONIN 3 MG TABLET [facility] MELATONIN 3 MG TABLET, 1, tablet, By Mouth, Daily at bedtime, # 30 tablet, 3 Refills, Maintenance, 03/31/23 18:55:00 EDT, 161, cm, 03/29/23 14:07:00 EDT, Height, 85, kg, 09/16/22 6:46:00 EST, DryWeight Start Date: 03/31/23 Status: Ordered diclofenac 1% topical gel 1 application, Topically, 4 times a day, PRN NEEDED, MODERATE PAIN., # 100 Gm, 3 Refills, Maintenance, 08/28/23 14:07:00 EST, [facility]/pharmacy #1972, 25, 1 application Topically 4 times a day,PRN: NEEDED,Instr:MODERATE PAIN., 161, cm, 08/16/23 11:00:... Start Date: 08/28/23 Status: Ordered hydrOXYzine hydrochloride 25 mg oral tablet 1 tablet, By Mouth, 2 times a day, PRN NEEDED FOR ANXIETY, # 60 tablet, 2 Refills, Maintenance, 06/09/23 19:43:00 EST, [facility], 161, cm, 05/27/23 9:13:00 EDT, Height, 85, kg, 09/16/22 6:46:00 EST, Dry Weight Start Date: 06/09/23 Status: Ordered lidocaine 5% topical film 1 patch, Topically, Daily, PRN NEEDED FOR PAIN REMOVE AFTER 12 HOURS, # 30 patch, 1 Refills, Maintenance, 07/28/23 17:33:00 EST, [facility], 30, APPLY 1 PATCH TOPICALLY DAILY NEEDED FOR PAIN REMOVE AFTER 12 HOURS, 161, cm, 07/20/23 10:04:00... Start Date: 07/28/23 Status: Ordered Lidoderm 5% film 1 patch, Topically, Daily, remove patches after 12 hours, # 30 patch, 0 Refills, Maintenance, 08/16/23 11:10:00 EST, [facility]/pharmacy #1972, Partial [...] tablet, 0 Refills, Maintenance, 03/31/23 18:55:00 EDT, [facility] STORE 11207, 161, cm, 03/29/23 14:07:00 EDT, Height, 85, [...] tablet, 0 Refills, Maintenance, 07/02/23 8:58:00 EST, [facility]/pharmacy #1972, Partial [...] 10:54:00 EST, Aerosol, Route to Pharmacy Electronically, [id number], [facility]/pharmacy #1972, 161... Start Date: 07/05/23 Status: [...] Confirmed Active OCD Confirmed Active *Joseph Resendez, Commercial Energy Rater, [facility] [phone] Confirmed Active 1Jantoinette Streeter [facility] Psychiatry [place] 2Case Flower Grower [place] ([facility]); Psychiatrist - Dr Konstantin Narvaez 3admitted [...] Associate Professional Member Role: PCP Address: Address: [address] [place] [address] [place] [address]- [place] Care Team Related Persons Name: GABINO CASTANEDA Address: home [address] [place] [address] Name: JERROD BEAUCHAMP Address: [place], [place] Name: BRE MIRANDA Address: home [address] [place] [address] Name: ALEYDA BEE Address: home [address] [place] [address] Name: ALEYDA BEE Address: [address] [place] [address] Name: ROMIE PUENTES Address: home [address] [place] [address]
--- OUTSIDE RECORDS SUMMARY | 2024-04-05 15:27 | XMS_ITS | Continuity of Care Document ---
Author Organization [facility] Address [address] [place] [address]- Care Team Providers Care Lead Technical Architect Name Role Phone Mitch Lopez Primary Care Physician [facility]): 07/20/22 - 08/19/22 [facility] [address] [place] [id number] Allergies, Adverse Reactions, Alerts [...] Given Patient Refuses 1Admin Note: Administered at [facility] on [facility] in [place]. 2Location History: [facility] 3Result Comment: [06/27/2014] PT HAD AT [facility] 4Admin Note: VIS GIVEN VIS DATE 01/30/2012 5Admin Note: flulaval vis given vis date 02/22/2011 6Admin Note: vis given 03/09/10 7Result Comment: Received at [facility] on [facility] 8Admin Note: VIS given 9Admin Note: [...] tablet, 0 Refills, Maintenance, 04/15/22 16:54:00 EDT, [facility]/pharmacy #1972, Partial fill upon [...] Refills, Maintenance, 07/07/22 18:54:00 EST, [facility], 30, APPLY 1 PATCH TOPICALLY DAILY NEEDED [...] tablet, 0 Refills, Maintenance, 06/19/22 12:17:00 EST, [facility] STORE 83874, 160, cm, 06/07/22 9:36:00 EST, Height, 88.2, [...] Refills, Soft Stop, 06/07/22 10:25:00 EST, Powder, [facility]/pharmacy #1972, Partial fill upon patient request if the prescription is for a schedule II opioid drug., 0.5 mL Intramuscul... Start Date: 06/07/22 Status: Ordered Shingrix intramuscular injection = 0.5 mL, Intramuscular, Once, repeat dose in 2 to 6 months, # 2 each, 0 Refills, Soft Stop, 03/15/22 14:32:00 EDT, Powder, [facility]/pharmacy #1972, Partial fill upon patient request if the prescription is for a schedule II opioid drug., 0.5 mL Intramuscul... Start Date: 03/15/22 Status: Ordered Spiriva Respimat 1.25 mcg/inh inhalation aerosol 2 puffs, Inhalation, Daily, # 1 each, 11 Refills, Maintenance, 06/07/22 10:22:00 EST, [facility]/pharmacy #1972, Partial fill upon [...] 1 Refills, Soft Stop, 10/07/20 9:06:00 EST, [facility]/pharmacy #1972, Partial fill upon patient request if the prescription is for a schedule II opioid drug., 160.... Start Date: 10/07/20 Status: Ordered Symbicort 160mcg/4.5mcg Inhaler 2, puffs, Inhalation, 2 times a day, rinse mouth and throat after use, # 10.2 Gm, Refills 11, Tot. Refills 11, Maintenance, 06/07/22 10:22:00 EST, Aerosol, Route to Pharmacy Electronically, [id number], [facility]/pharmacy #1972, 160... Start Date: 06/07/22 Status: Ordered terazosin 2 mg oral capsule 1, capsule, By Mouth, Daily at bedtime, INSTR:CONTINUE TAKING TILL STONE EXPULSION OR TILL 4 WEEKS AND THEN DISCONTINUE., # 30 capsule, Refills 0, Maintenance, 03/28/22 14:40:00 EDT, Route to Pharmacy Electronically, [facility] STORE 32887, 160, cm, 03/15/22... Start Date: 03/28/22 Status: Ordered Tessalon Perles 100 mg oral capsule 1 capsule = 100 mg, By Mouth, 3 times a day, PRN Cough, # 21 capsule, 0 Refills, Maintenance, 06/17/22 17:34:00 EST, [facility]/pharmacy #1972, Partial fill upon [...] Refills, Maintenance, 06/16/22 9:46:00 EST, [facility], 160, cm, 06/07/22 9:36:00 EST, Height, 88.2, [...] Confirmed Active OCD Confirmed Active *Joseph Resendez, Refining Engineer, ICP [phone] Confirmed Active 1Jantoinette Streeter [facility] [place] 2Case Platform Software Engineer [place] ([facility]); Psychiatrist - [...] Professional Member Role: PCP Address: Address: [address] [place] [address] [place] [address]- Care Team Related Persons Name: GABINO CASTANEDA Address: home [address] [place] [address] Name: BRE MIRANDA Address: home [address] [place] [address] Name: ALEYDA BEE Address: [address] [place] [address] Name: ALEYDA BEE Address: home [address] [place] [address] Name: ROMIE PUENTES Address: home [address] [place] [address]
--- OUTSIDE RECORDS SUMMARY | 2024-04-05 15:28 | XMS_ITS | Continuity of Care Document ---
Author Organization [facility] Address [address] [place] [address]- Care Team Providers Care Test Center Manager Name Role Phone Mitch Lopez Primary Care Physician [facility]counter [facility] Date(s): 03/19/20 - 04/18/20 [facility] [address] [place] [address]- [facility] Allergies, Adverse Reactions, Alerts Substance Reaction [...] Refuses 1Admin Note: Administered at [facility] on [facility] [address] in [place]. 2Location History: [facility] pharmacy 3Result Comment: [06/27/2014] PT HAD AT [facility] 4Admin Note: VIS GIVEN [...] Gm, 2 Refills, Maintenance, 03/04/20 12:12:00 EDT, [facility]/pharmacy #1972, 160.02, cm, 03/04/20 11:50:00 [...] 03/12/20 7:19:00 EDT, Route to Pharmacy Electronically, [id number], [facility]/pharmacy #1972, 160.02, cm, 03/04/20 11:50:00 [...] 30 capsule, 11 Refills, Maintenance, [facility], 160.02, cm, 10/11/19 15:24:00 EDT, Height, 85.91, [...] migraine(Confirmed) Active OCD(Confirmed) Active *Joseph Resendez, Kendell mackenzie, [facility] [phone](Confirmed) Active Dyan Streeter [facility] Psychiatry [place] 2Case Warehouse Assistant [place] ([facility]); Psychiatrist [...] genetics 6follow up at [facility] GI - Dr Richey. Multiple endoscopies, all normal. Other diagnosis is Non-ulcer dyspepsia Social History Social History Type Response Smoking Status Never smoker entered on: 02/07/14 Sex Female
--- OUTSIDE RECORDS SUMMARY | 2024-04-05 15:28 | XMS_ITS | Continuity of Care Document ---
Author Organization [facility] Address [address] [place] [address]- Care Team Providers Care Supervisor Pastry Name Role Phone Mitch Lopez Primary Care Physician Encounter [facility] Date(s): 03/04/21 - 04/03/21 [facility] [address] [place] [address]- Allergies, Adverse Reactions, Alerts Substance Reaction Severity [...] Note: Administered at [facility] on [address] in [place]. 4Location History: [facility] pharmacy 5Result Comment: [06/27/2014] PT HAD AT [facility] CENTER [facility] 6Admin Note: VIS GIVEN VIS DATE 01/30/2012 [...] BREATH, # 8.5 Unknown, 5 Refills, [facility] STORE 07865, 25, INHALE 2 PUFFS EVERY 6 HOURS [...] 10:55:00 EDT, Route to Pharmacy Electronically, [facility] Refills, Maintenance, 02/07/21 10:54:00 EDT, Gel, [facility]/pharmacy #1972, Partial fill upon patient request if the prescription is for a schedule II opioid drug., 160.02, cm, 02/04/21 15:57:00 EDT, [facility]... Start Date: 02/07/21 Status: Ordered diclofenac 1% topical gel = 4 Gm, Topically, 4 times a day, PRN knee pain, Apply to painful knee, # 100 Gm, 0 Refills, Maintenance, 02/16/21 17:40:00 EDT, Gel, [facility]/pharmacy #1972, Partial fill upon [...] Gm, 0 Refills, Maintenance, 08/08/20 15:21:00 EST, [place], [facility], Partial fill upon patient request [...] opioid drug., 160.02, cm, 10/07/20 8:15:00 EST, [facility]... Start Date: 10/07/20 Status: Ordered naproxen 500 mg oral tablet 1 tablet = 500 mg, By Mouth, 2 times a day, # 28 tablet, 0 Refills, Maintenance, 03/08/21 18:54:00 EDT, Tablet, [facility]/pharmacy #1972, Partial [...] 05/19/20 16:20:00 EDT, Route to Pharmacy Electronically, [id number], [facility], 160.02, cm, 04/28/20 13:40:00 EDT, Height, 9... Start Date: 05/19/20 Stop Date: 11/15/20 Status: Ordered ProAir HFA 90 mcg/inh inhalation aerosol with adapter 2, puffs, Inhalation, Every 6 hours, PRN, # 1 each, Refills 5, Tot. Refills 5, Maintenance, 06/16/20 18:28:00 EST, Route to Pharmacy Electronically, [id number], [facility], 160.02, cm, 05/27/20 13:10:00 EDT, Height, [...] Refills, Maintenance, 02/04/21 9:28:00 EDT, [facility], 160.02, cm, 01/26/21 9:12:00 EDT, Height, 88.8, [...] Active *Joseph Resendez, Care Coord inator, ICP [phone](Confirmed) Active 1Jantoinette Streeter [facility] Psychiatry [place] 2Case Negative Stripper [place] ([facility]); Psychiatrist - [...]
--- OUTSIDE RECORDS SUMMARY | 2024-04-05 15:28 | XMS_ITS | Continuity of Care Document ---
Author Organization [facility] Address [address] [place] [address]- Care Team Providers Care Rail Car Welder Name Role Phone Mitch Lopez Primary Care Physician [facility]counter [facility] Date(s): 12/02/22 - 01/01/23 [facility] [address] [place] [address]- Allergies, Adverse Reactions, Alerts Substance Reaction Severity [...] Given Patient Refuses 1Admin Note: Administered at [facility] on [facility] in [place]. 2Location History: [facility] pharmacy 3Result Comment: [06/27/2014] PT HAD AT [facility] 4Admin Note: VIS GIVEN VIS DATE 01/30/2012 5Admin Note: flulaval vis given vis date 02/22/2011 6Admin Note: vis given 03/09/10 7Result Comment: Received at [facility] on [facility] [...] patch, 1 Refills, Maintenance, 07/07/22 18:54:00 EST, [facility] STORE 02115, 30, APPLY 1 PATCH TOPICALLY DAILY NEEDED [...] tablet, 0 Refills, Maintenance, 12/30/22 15:43:00 EDT, [facility]/pharmacy #1972, Partial fill upon [...] 10/31/22 16:24:00 EDT, Route to Pharmacy Electronically, [facility]/pharmacy #1972, Partial fill upon [...] tablet, 11 Refills, Maintenance, 07/12/22 14:20:00 EST, [facility]/pharmacy #1972, Partial fill upon patient request if the prescription is for a schedule II opioid drug., 160, cm, 07/12/22 13:43:00 EST, Height, 88.2,... Start Date: 07/12/22 Status: Ordered Spiriva Respimat 1.25 mcg/inh inhalation aerosol 2 puffs, Inhalation, Daily, # 1 each, 11 Refills, Maintenance, 11/21/22 12:15:00 EDT, [facility]/pharmacy #1972, Partial fill upon [...] 19:11:00 EDT, Aerosol, Route to Pharmacy Electronically, [id number], [facility], 161... Start Date: 11/24/22 Status: [...] Confirmed Active OCD Confirmed Active *Joseph Resendez, Carding Doubler, ICP [phone] Confirmed Active 1Jantoinette Streeter [facility] Psychiatry [place] 2Case Visual Training Aide [place] ([facility]); Psychiatrist [...] Care Team Personnel Name: Mitch Lopez Position: [facility] PCO Associate Professional Member Role: PCP Address: Address: [address] [place] [address] [place] [address]- Care Team Related Persons Name: GABINO CASTANEDA Address: home [address] [place] [address] Name: JERROD BEAUCHAMP Address: [place], [place] Name: BRE MIRANDA Address: [address] [place] [address] Name: ALEYDA BEE Address: home [address] [place], [place] Name: ALEYDA BEE Address: home [address] [place], [place] Name: ROMIE PUENTES Address: home [address] [place] [address]
--- OUTSIDE RECORDS SUMMARY | 2024-04-05 15:28 | XMS_ITS | Continuity of Care Document ---
Author Organization [facility] Address [address] [place] [address]- Care Team Providers Care Painter Foreman Name Role Phone Mitch Lopez Primary Care Physician [phone] [facility] 09[facility]07[facility]23 - 10/07/23 [facility] [address] [place] [id number] Allergies, Adverse Reactions, Alerts Substance Reaction [...] Note: Administered at [facility] on [facility] in [place]. 2Location History: [facility] pharmacy 3Result Comment: [06/27/2014] PT HAD AT [facility] 4Admin Note: VIS GIVEN VIS DATE 01/30/2012 5Admin Note: flulaval vis given vis date 02/22/2011 6Admin Note: vis given 03/09/10 7Result Comment: Received at [facility] on [facility] 8Admin Note: VIS given 9Admin Note: 2nd [...] Gm, 3 Refills, Maintenance, 08/28/23 14:07:00 EST, [facility]/pharmacy #1972, 25, 1 application Topically 4 times a day,PRN: NEEDED,Instr:MODERATE PAIN., 161, cm, 08/16/23 11:00:... Start Date: 08/28/23 Status: Ordered hydrOXYzine hydrochloride 25 mg oral tablet 1 tablet, By Mouth, 2 times a day, PRN NEEDED FOR ANXIETY, # 60 tablet, 2 Refills, Maintenance, 06/09/23 19:43:00 EST, [facility], 161, cm, 05/27/23 9:13:00 EDT, Height, 85, kg, 09/16/22 6:46:00 EST, Dry Weight Start Date: 06/09/23 Status: Ordered lidocaine 5% topical film 1 patch, Topically, Daily, PRN NEEDED FOR PAIN REMOVE AFTER 12 HOURS, # 30 patch, 1 Refills, Maintenance, 07/28/23 17:33:00 EST, [facility] 415[facility], 30, APPLY 1 PATCH TOPICALLY DAILY NEEDED FOR PAIN REMOVE AFTER 12 HOURS, 161, cm, 07/20/23 10:04:00... Start Date: 07/28/23 Status: Ordered Lidoderm 5% film 1 patch, Topically, Daily, remove patches after 12 hours, # 30 patch, 0 Refills, Maintenance, 08/16/23 11:10:00 EST, [facility]/pharmacy #1972, Partial fill upon [...] 03/31/23 18:55:00 EDT, [facility] STORE 28361, 161, cm, 03/29/23 14:07:00 EDT, Height, 85, [...] tablet, 0 Refills, Maintenance, 07/02/23 8:58:00 EST, [facility]/pharmacy #1972, Partial fill upon [...] 10:54:00 EST, Aerosol, Route to Pharmacy Electronically, [id number], [facility]/pharmacy #1972, 161... Start Date: 07/05/23 Status: Ordered [...] Active OCD Confirmed Active *Joseph Resendez, Lead Neurodiagnostic Technologist, [facility] [phone] Confirmed Active 1Jantoinette Streeter [facility] Psychiatry [place] 2Case Adult Care Provider Parish Proctor ([facility]); Psychiatrist - [...] Care Team Personnel Name: Mitch Lopez Position: [facility] PCO Associate Professional Member Role: PCP Address: Address: [address] [place] [address] [place] [address]- [place] Care Team Related Persons Name: GABINO CASTANEDA Address: home [address] [place] [address] Name: JERROD BEAUCHAMP Address: [place], [place] Name: BRE MIRANDA Address: [address] [place] [address] Name: ALEYDA BEE Address: [address] [place] [address] Name: ALEYDA BEE Address: [address] [place] [address] Name: ROMIE PUENTES Address: home [address] [place] [id number]
--- OUTSIDE RECORDS SUMMARY | 2024-04-05 15:28 | XMS_ITS | Continuity of Care Document ---
Author Organization [facility] Address [address] [place] [address]- Care Team Providers Care Sap Abap Programmer Name Role Phone Mitch Lopez Primary Care Physician [phone] [facility]counter [facility] Date[facility]s): 12/01/21 - 12/31/21 [facility] [address] [place] [address]- Allergies, Adverse Reactions, Alerts Substance Reaction Severity [...] Patient Refuses 1Admin Note: Administered at [facility] on [facility] in [place]. 2Location History: [facility] pharmacy 3Result Comment: [06/27/2014] PT HAD AT [facility] 4Admin Note: VIS GIVEN VIS DATE 01/30/2012 5Admin Note: flulaval vis given vis date 02/22/2011 6Admin Note: vis given 03/09/10 7Result Comment: Received at [facility] 8Admin Note: VIS [...] # 120 tablet, 2 Refills, [facility], 160, cm, 11/22/21 10:23:00 EDT, Height, 88.2, [...] 09/07/21 11:12:00 EST, Route to Pharmacy Electronically, [id number], [facility]/pharmacy #1972, 160.02, cm, 09/07/21 10:18:00 EST, Height,... Start Date: 09/07/21 Stop Date: 09/02/22 Status: Ordered Spiriva Respimat 1.25 mcg/inh inhalation aerosol 2 puffs, Inhalation, Daily, # 1 each, 11 Refills, Maintenance, 09/07/21 11:12:00 EST, [facility]/pharmacy #1972, Partial fill [...] 17:59:00 EST, Aerosol, Route to Pharmacy Electronically, [id number], [facility]/pharmacy #1972, 160... Start Date: 09/08/21 Status: Ordered Tessalon Perles 100 mg oral capsule 1 capsule = 100 mg, By Mouth, 3 times a day, PRN Cough, # 20 capsule, 0 Refills, Maintenance, 09/16/21 15:25:00 EST, [facility]/pharmacy #1972, Partial fill upon patient request if the prescription is for aschedule II opioid drug., 160.02, cm, 09/16/21 14:3... Start Date: 09/16/21 Status: Ordered verapamil 180 mg oral capsule, extended release 1 capsule, By Mouth, Daily, # 30 capsule, 5 Refills, [facility], 160.02, cm, 07/05/21 10:30:00EST, Height, 85, kg, [...] Active *Joseph Resendez, Care Coord inator, ICP [phone](Confirmed) Active 1Jantoinette Streeter [facility] [place] 2Case Warp Spinner [place] ([facility]); Psychiatrist - Dr Konstantin Narvaez 3admitted at adult partial hospitalization program (adult intensive short term out-pt psychiatric program). 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 BRCA1/2 negative,seen by genetics 6follow up at [facility] GI - Dr Desilets. Multiple endoscopies, all normal. Other diagnosis is Non-ulcer dyspepsia Social History Social History Type Response Smoking Status Never smoker entered on: 02/07/14 Sex Female
--- OUTSIDE RECORDS SUMMARY | 2024-04-05 15:28 | XMS_ITS | Continuity of Care Document ---
Author Organization [facility] ter Address [address] [place] [address]- Care Team Providers Care Drying Rack Changer Name Role Phone Mitch Lopez Primary Care Physician [place] [facility] Date(s): 02/07/21 - 02/07/[address] [address]- Encounter Diagnosis Back pain(Final) - 02/07/21 Discharge Disposition: A-D/C Home Attending Physician: Ajay Escoto MD Admitting Physician: Ajay Escoto MD Referring Physician: Not on Staff, Referring [...] Received at [facility] on [facility] 2Admin Note: VIS given 3Admin Note: Administered at [facility] on [address] [facility] [address] in [place]. 4Location History: [facility] 5Result Comment: [06/27/2014] PT HAD AT [...] Maintenance, 12/04/20 17:24:00 EDT, Tablet, [facility]/pharmacy #1972, Partial fill [...] days, # 15 tablet, 0 Refills, Acute 02/09/21 16:28:00 EDT, 02/04/21 16:28:00 EDT, Tablet, [facility]/pharmacy #1972, Partial fill upon patient request if the prescription is for a schedule II opioid drug., 160.... Start Date: 02/04/21 Stop Date: 02/09/21 Status: Ordered diclofenac 1% topical gel 1 application, Topically, 4 times a day, # 100 Gm, 0 Refills, Maintenance, 02/07/21 10:54:00 EDT, Gel, [facility], Partial fill upon patient request if the prescription is for a schedule II opioid drug., 160.02, cm, 02/04/21 15:57:00 EDT, [place]... Start Date: 02/07/21 Status: Ordered duloxetine 30 mg oral enteric coated capsule 1 capsule = 30 mg, By Mouth, Daily, # 30 capsule, 4 Refills, Maintenance, 02/04/21 16:26:00 EDT, ECCapsule, [facility]/pharmacy #1972, Partial fill upon patient request if the prescription is for a schedule II opioid drug., 160.02, cm, 02/04/21 15:57:00 EDT... Start Date: 02/04/21 Stop Date: 07/04/21 Status: Ordered Estrace Vaginal Cream 0.1 mg/g = 1 Gm, Vaginally, Every Monday and , # 42.5 Gm, 2 Refills, Maintenance, 09/08/20 14:57:00EST, [facility]/pharmacy #1972, 160.02, cm, 07/29/20 16:36:00 EST, Height, 92.3, kg, 07/24/20 13:24:00 EST, Dry Weight Start Date: 09/08/20 Status: Ordered Flonase 50 mcg/inh nasal spray 1 sprays, Nares, Both, 2 times a day, # 16 Gm, 0 Refills, Maintenance, 08/08/20 15:21:00 EST, [place], [facility], Partial fill upon patient request [...] Date: 02/04/21 Stop Date: 02/18/21 Status: Ordered oxyCODONE 5 mg oral capsule 1 capsule = 5 mg, By Mouth, Every 6 hours, PRN for pain, # 7 capsule, 0 Refills, Acute 02/08/21 10:55:00 EDT, 02/07/21 10:54:00 EDT, Capsule, [facility]/pharmacy #1972, Partial fill upon patient request if the prescription is for a schedule II opioid drug.,... Start Date: 02/07/21 Stop Date: 02/08/21 Status: Ordered Percocet-5 Tablet 1 tablet, Tablet, By Mouth, Once, STAT, 02/07/21 9:46:00 EDT, Stop date 02/07/21 9:46:00 EDT Start Date: 02/07/21 Stop Date: 02/07/21 Status: Completed POISE PADS POISE PADS, See Instructions, # 180 each, Refills 5, Tot. Refills 5, Maintenance, For stress incontinence (N93.3), Cystoscopy (Z98.890)., 02/27/19 14:16:26 EDT, Compound Start Date: 02/27/19 Status: Ordered ProAir HFA 90 mcg/inh inhalation aerosol with adapter 2, puffs, Inhalation, Every 6 hours, PRN, # 1 each, Refills 5, Tot. Refills 5, Maintenance, 05/19/20 16:20:00 EDT, Route to Pharmacy Electronically, [id number], [facility]/pharmacy#1972, 160.02, cm, 04/28/20 13:40:00 EDT, Height, 9... Start Date: 05/19/20 Stop Date: 11/15/20 Status: Ordered ProAir HFA 90 mcg/inh inhalation aerosol with adapter 2, puffs, Inhalation, Every 6 hours, PRN, # 1 each, Refills 5, Tot. Refills 5, Maintenance, 06/16/20 18:28:00 EST, Route to Pharmacy Electronically, [id number], [facility]/pharmacy#1972, 160.02, cm, 05/27/20 13:10:00 EDT, [...] Soft Stop, 10/07/20 9:06:00 EST, [facility]/pharmacy #1972, Partial fill upon patient request if the prescription is for a schedule II opioid drug., 160.... Start Date: 10/07/20 Status: Ordered verapamil 180 mg oral capsule, extended release 1 capsule, By Mouth, Daily, # 30 capsule, 5 Refills, Maintenance, 02/04/21 9:28:00 EDT, [facility], 160.02, cm, 01/26/21 9:12:00 EDT, Height, 88.8, [...] Active *Joseph Resendez, Care Coord inator, ICP [phone](Confirmed) Active 1Jantoinette Streeter [facility] [place] [facility] [place] 2Case Pattern Cleaner [place] ([facility]); Psychiatrist [...] 1 2 3 Oxygen Saturation [94-100 %] 100 % (02/07/21 11:20 AM) 98 % (02/07/21 8:19 AM) 96 % (02/07/21 7:49 AM) Pulse Rate [55-90 bpm] 61 bpm (02/07/21 11:20 AM) 71 bpm (02/07/21 8:19 AM) 69 bpm (02/07/21 7:49 AM) Blood Pressure [90-138/55-84 mm Hg] 131/75mm Hg (02/07/21 11:20 AM) 155/92mm Hg *H* (02/07/21 8:19 AM) Respiratory Rate [16-30 br/min] 17 br/min (02/07/21 11:20 AM) 18 br/min (02/07/21 10:11 AM) 18 br/min (02/07/21 8:19 AM) Temperature [96.8-100.4 DegF] 97.8 DegF (02/07/21 11:20 AM) 98 DegF (02/07/21 8:19 AM) Mode of Delivery (Oxygen) Room air (02/07/21 11:20 AM) Room air (02/07/21 8:19 AM) Room air (02/07/21 7:49 AM) Blood pressure sites Arm, right (02/07/21 11:20 AM) Arm, right (02/07/21 8:19 AM) Temperature Route Oral (02/07/21 11:20 AM) Oral (02/07/21 8:19 AM) Social History Social History Type Response Smoking Status Never smoker entered on: 02/07/14 Sex Female
--- OUTSIDE RECORDS SUMMARY | 2024-04-05 15:28 | XMS_ITS | Continuity of Care Document ---
Author Organization [facility] Address [address] [place] [address]- Care Team Providers Care Family Manager Name Role Phone Mitch Lopez Primary Care Physician [facility] Date[facility]s): 05/17/22 - 07/14/22 [facility] [address] [place] [address]- Attending Physician: Not on Staff, Attending MD [...] at [facility] on [facility] in [place]. 2Location History: [facility] pharmacy 3Result Comment: [06/27/2014] PT HAD AT [facility] 4Admin Note: VIS GIVEN VIS DATE 01/30/2012 5Admin Note: flulaval vis given vis date 02/22/2011 6Admin Note: vis given 03/09/10 7Result Comment: Received at [facility] on [facility] 8Admin Note: VIS given 9Admin Note: [...] tablet, 0 Refills, Maintenance, 04/15/22 16:54:00 EDT, [facility]/pharmacy #1972, Partial fill upon patient [...] Refills, Maintenance, 07/07/22 18:54:00 EST, [facility], 30, APPLY 1 PATCH TOPICALLY DAILY NEEDED [...] tablet, 0 Refills, Maintenance, 06/19/22 12:17:00 EST, [facility] STORE [facility], 160, cm, 06/07/22 9:36:00 EST, Height, 88.2, kg, 11/11/21 9:53:00 EDT,Dry Weight Start Date: 06/19/22 Status: Ordered Premarin 0.3 mg oral tablet 1 tablet = 0.3 mg, By Mouth, Daily, # 30 tablet, 11 Refills, Maintenance, 07/12/22 14:20:00 EST, [facility]/pharmacy #1972, Partial fill upon patient request if the prescription is for a schedule II opioid drug., 160, cm, 07/12/22 13:43:00 EST, Height, 88.2,... Start Date: 07/12/22 Status: Ordered Shingrix intramuscular injection = 0.5 mL, Intramuscular, Once, repeat dose in 2 to 6 months, # 2 each, 0 Refills, Soft Stop, 06/07/22 10:25:00 EST, Powder, [facility]/pharmacy #1972, Partial fill upon patient request if the prescription is for a schedule II opioid drug., 0.5 mL Intramuscul... Start Date: 06/07/22 Status: Ordered Shingrix intramuscular injection = 0.5 mL, Intramuscular, Once, repeat dose in 2 to 6 months, # 2 each, 0 Refills, Soft Stop, 03/15/22 14:32:00 EDT, Powder, [facility]/pharmacy #1972, Partial fill upon patient [...] 10:22:00 EST, Aerosol, Route to Pharmacy Electronically, [id number], [facility]/pharmacy #1972, 160... Start Date: 06/07/22 Status: Ordered terazosin 2 mg oral capsule 1, capsule, By Mouth, Daily at bedtime, INSTR:CONTINUE TAKING TILL STONE EXPULSION OR TILL 4 WEEKS AND THEN DISCONTINUE., # 30 capsule, Refills 0, Maintenance, 03/28/22 14:40:00 EDT, Route to Pharmacy Electronically, [facility] STORE [facility], 160, cm, 03/15/22... Start Date: 03/28/22 Status: [...] Refills, Maintenance, 06/16/22 9:46:00 EST, [facility], 160, cm, 06/07/22 9:36:00 EST, Height, 88.2, [...] class II Confirmed Active OCD Confirmed Active *Lukisha Mal, Director Trial, ICP [phone] Confirmed Active 1Jantoinette Streeter [facility] [place] [facility] [place] 2Case Teacher Of The Handicapped [place] ([facility]); Psychiatrist - [...] BRCA1/2 negative,seen by genetics 6follow up at [facility] GI - Dr Richey. Multiple endoscopies, all normal. Other diagnosis is Non-ulcer dyspepsia Social History Social History Type Response Smoking Status Never smoker entered on: 02/07/14 Sex Female Patient Care team information Care Team Personnel Name: Mitch Lopez Position: S PCO Associate Professional Member Role: PCP Address: Address: [address] [place] [address] [place] [address]- Care Team Related Persons Name: GABINO CASTANEDA Address: home [address] [place] [address] Name: BRE MIRANDA Address: home [address] [place] [address] Name: ALEYDA BEE Address: home [address] [place] [address] Name: ALEYDA BEE Address: home [address] [place] [address] Name: ROMIE PUENTES Address: home [address] [place] [address]
--- OUTSIDE RECORDS SUMMARY | 2024-04-05 15:28 | XMS_ITS | Continuity of Care Document ---
Author Organization [facility] ter Address [address] [place] [address]- Care Team Providers Care Director Of Testing Name Role Phone Mitch Lopez Primary Care Physician Encounter [facility] Date(s): 12/05/20 - 12/05/[address] [address]- Encounter Diagnosis Urinary frequency(Final) - 12/05/20 Back pain(Final) - 12/05/20 Urinary frequency(Final) - 12/05/20 Back pain(Final) - 12/05/20 Discharge Disposition: A-D/C Home Attending Physician: Darrel Wetzel MD Admitting Physician: Darrel Wetzel MD Referring Physician: Not on Staff, Referring [...] 1Result Comment: Received at [facility] on [facility] [address] 2Admin Note: VIS given 3Admin Note: Administered at [facility] on [address] in [place]. 4Location History: [facility] pharmacy 5Result Comment: [06/27/2014] PT HAD AT [facility] 6Admin Note: VIS GIVEN VIS DATE [...] 0 Refills, Maintenance, 12/04/20 17:24:00 EDT, Tablet, [facility], Partial fill upon [...] Gm, 0 Refills, Maintenance, 08/08/20 15:21:00 EST, [place], [facility], Partial fill upon patient request [...] 05/19/20 16:20:00 EDT, Route to Pharmacy Electronically, [id number], [facility]/pharmacy#1972, 160.02, cm, 04/28/20 13:40:00 EDT, Height, 9... Start Date: 05/19/20 Stop Date: 11/15/20 Status: Ordered ProAir HFA 90 mcg/inh inhalation aerosol with adapter 2, puffs, Inhalation, Every 6 hours, PRN, # 1 each, Refills 5, Tot. Refills 5, Maintenance, 06/16/20 18:28:00 EST, Route to Pharmacy Electronically, [id number], [facility]/pharmacy#1972, 160.02, cm, 05/27/20 13:10:00 EDT, Height, 9... [...] capsule, 5 Refills, Maintenance, 07/27/20 16:51:00 EST, [facility]/pharmacy #1972, Partial fill upon patient request if [...] Active *Joseph Resendez, Care Coord inator, ICP [phone](Confirmed) Active 1Jantoinette Streeter [facility] [place] 2Case Astronomy Professor [place] ([facility]); Psychiatrist - Dr Konstantin Narvaez [...] negative,seen by genetics 6follow up at [facility] GI - Dr Richey. Multiple endoscopies, all normal. Other diagnosis is Non-ulcer dyspepsia Vital Signs Most recent to oldest [Reference Range]: 1 2 3 Oxygen Saturation [94-100 %] 98 % (12/05/20 9:18 PM) 99 % (12/05/20 8:06 PM) 99 % (12/05/20 3:11 PM) Pulse Rate [55-90 bpm] 60 bpm (12/05/20 9:18 PM) 70 bpm (12/05/20 8:06 PM) 70 bpm (12/05/20 3:11 PM) Blood Pressure [90-138/55-84 mm Hg] 163/94mm Hg *H* (12/05/20 9:18 PM) 151/94mm Hg *H* (12/05/20 8:06 PM) 135/98mm Hg (12/05/20 3:11 PM) Respiratory Rate [16-30 br/min] 18 br/min (12/05/20 9:18 PM) 20 br/min (12/05/20 8:06 PM) 18 br/min (12/05/20 3:11 PM) Temperature [96.8-100.4 DegF] 98.5 DegF (12/05/20 8:06 PM) 97.9 DegF (12/05/20 3:11 PM) Mode of Delivery (Oxygen) Room air (12/05/20 9:18 PM) Room air (12/05/20 8:06 PM) room air (12/05/20 3:11 PM) Blood pressure sites Arm, right (12/05/20 8:06 PM) Arm, right (12/05/20 3:11 PM) Temperature Route Oral (12/05/20 8:06 PM) Oral (12/05/20 3:11 PM) Social History Social History Type Response Smoking Status Never smoker entered on: 02/07/14 Sex Female
--- OUTSIDE RECORDS SUMMARY | 2024-04-05 15:28 | XMS_ITS | Continuity of Care Document ---
Author Organization [facility] Address [address], [address], [place] [address]- Care Team Providers Care Water Resources Technical Officer Name Role Phone Mitch Lopez Primary Care Physician Encounter [facility] Date(s): 09/24/19 - 10/04/19 [facility] [address], [address] [place] [address]- Attending Physician: Admtr, Ar8 Admitting Physician: Admtr, Ar8 Referring Physician: Admtr, Ar8 Allergies, Adverse Reactions, [...] Given Patient Refuses 1Admin Note: Administered at [facility] on [facility] in [place]. 2Location History: [facility] pharmacy 3Result Comment: [06/27/2014] PT HAD AT [facility] 4Admin Note: VIS GIVEN VIS DATE 01/30/2012 [...] 07/25/19 14:29:00 EST, Route to Pharmacy Electronically, [id number], [facility]/pharmacy#1972, 158, cm, 07/25/19 13:55:00 EST, [...] Refills, Maintenance, 08/01/19 15:54:00 EST, ER Capsule, [facility]/pharmacy #1972, Patient lost medication. Please [...] Chronic migraine(Confirmed) Active OCD(Confirmed) Active Dyan Streeter [facility] [place] 2Case Seafood Processor [place] ([facility]); Psychiatrist - [...]
--- OUTSIDE RECORDS SUMMARY | 2024-04-05 15:28 | XMS_ITS | Continuity of Care Document ---
Author Organization [facility] Address [address] [place] [address]- Care Team Providers Care Research Geneticist Name Role Phone Mitch Lopez Primary Care Physician [phone] [facility] Date(s): 11/29/21 - 12/29/21 [facility] [address] [place] [address]- Allergies, Adverse Reactions, Alerts Substance Reaction Severity [...] Gi mikaela influenza virus vaccine, inactivated 03/28/17 Adrren rded influenza virus vaccine, inactivated 2 05/26/16 [...] Refuses 1Admin Note: Administered at [facility] on [facility] in [place]. 2Location History: [facility] pharmacy 3Result Comment: [06/27/2014] PT HAD AT [facility] 4Admin Note: VIS GIVEN VIS DATE 01/30/2012 5Admin Note: flulaval vis given vis date 02/22/2011 6Admin Note: vis given 03/09/10 7Result Comment: Received at [facility] on [facility] 8Admin Note: VIS given [...] # 120 tablet, 2 Refills, [facility], 160, cm, 11/22/21 10:23:00 EDT, Height, 88.2, [...] 09/07/21 11:12:00 EST, Route to Pharmacy Electronically, [id number], [facility]/pharmacy #1972, 160.02, cm, [...] 17:59:00 EST, Aerosol, Route to Pharmacy Electronically, [id number], [facility]/pharmacy #1972, 160... Start Date: 09/08/21 Status: Ordered Tessalon Perles 100 mg oral capsule 1 capsule = 100 mg, By Mouth, 3 times a day, PRN Cough, # 20 capsule, 0 Refills, Maintenance, 09/16/21 15:25:00 EST, [facility]/pharmacy #1972, Partial fill upon patient request if the prescription is for aschedule II opioid drug., 160.02, cm, 09/16/21 14:3... Start Date: 09/16/21 Status: Ordered verapamil 180 mg oral capsule, extended release 1 capsule, By Mouth, Daily, # 30 capsule, 5 Refills, [facility], 160.02, cm, 07/05/21 10:30:00EST, Height, 85, kg, [...] Active *Joseph Resendez, Care Coord inator, ICP [phone](Confirmed) Active 1Jantoinette Streeter [facility] Psychiat[facility] [place] 2Case Skein Bander [place] ([facility]); Psychiatrist - Dr [...]
--- OUTSIDE RECORDS SUMMARY | 2024-04-05 15:28 | XMS_ITS | Continuity of Care Document ---
Author Organization [facility] Address [address] [place] [address]- Care Team Providers Care Android Developer Name Role Phone Mitch Lopez Primary Care Physician [facility] Date[facility]s): 12/22/21 - 01/21/22 [facility] [address] [place] [address]- Allergies, Adverse Reactions, Alerts Substance Reaction Severity [...] Given Patient Refuses 1Admin Note: Administered at [facility] on [facility] in [place]. 2Location History: [facility] pharmacy 3Result Comment: [06/27/2014] PT HAD AT [facility] 4Admin Note: VIS GIVEN VIS DATE 01/30/2012 5Admin Note: flulaval vis given vis date 02/22/2011 6Admin Note: vis given 03/09/10 7Result Comment: Received at [facility] on [facility] 8Admin Note: VIS given [...] a day, # 120 tablet, 2 Refills, [facility] STORE 5[facility]20, 160, cm, 11/22/21 10:23:00 EDT, Height, 88.2, [...] 01/03/22 11:58:00 EDT, Route to Pharmacy Electronically, [id number], [facility], 160, cm, 01/03/22 11:03:00 EDT, [...] 11:56:00 EDT, Aerosol, Route to Pharmacy Electronically, [id number], [facility]/pharmacy #1972, 160... Start Date: 01/03/22 Status: Ordered [...] # 30 capsule, 5 Refills, [facility], 160.02, cm, 07/05/21 10:30:00EST, Height, 85, kg, [...] Active *Joseph Resendez, Care Coord avril, ICP [phone](Confirmed) Active 1Jantoinette Streeter [facility] 2Case Accounting Generalist [place] ([facility]); Psychiatrist [...]
--- OUTSIDE RECORDS SUMMARY | 2024-04-05 15:28 | XMS_ITS | Continuity of Care Document ---
Author Organization [facility] Address [address] [place] [address]- Care Team Providers Care Scene And Lighting Design Lecturer Name Role Phone Mitch Lopez Primary Care Physician [facility] 08[facility]29/23 - 09/28/23 [facility] [address] [place] [address] Allergies, Adverse Reactions, Alerts Substance Reaction [...] [facility] on [facility] in [place]. 2Location History: [facility] pharmacy 3Result Comment: [06/27/2014] PT HAD AT [facility] 4Admin Note: VIS GIVEN VIS DATE 01/30/2012 5Admin Note: flulaval vis given vis date 02/22/2011 6Admin Note: vis given 03/09/10 7Result Comment: Received at [facility] 8Admin Note: VIS given 9Admin Note: [...] drug. Start Date: 09/14/22 Status: Ordered [facility] MELATONIN 3 MG TABLET [facility] MELATONIN 3 MG TABLET, 1, tablet, [...] tablet, 2 Refills, Maintenance, 06/09/23 19:43:00 EST, [facility] 16192, 161, cm, 05/27/23 9:13:00 EDT, Height, 85, kg, 09/16/22 6:46:00 EST, Dry Weight Start Date: 06/09/23 Status: Ordered lidocaine 5% topical film 1 patch, Topically, Daily, PRN NEEDED FOR PAIN REMOVE AFTER 12 HOURS, # 30 patch, 1 Refills, Maintenance, 07/28/23 17:33:00 EST, [facility] 40920, 30, APPLY 1 PATCH TOPICALLY DAILY NEEDED FOR PAIN REMOVE AFTER 12 HOURS, 161, cm, 07/20/23 10:04:00... Start Date: 07/28/23 Status: Ordered Lidoderm 5% film 1 patch, Topically, Daily, remove patches after 12 hours, # 30 patch, 0 Refills, Maintenance, 08/16/23 11:10:00 EST, [facility]/pharmacy [...] [facility] STORE 30384, 161, cm, 03/29/23 14:07:00 EDT, Height, 85, [...] 0 Refills, Maintenance, 07/02/23 8:58:00 EST, [facility]/pharmacy [...] 10:54:00 EST, Aerosol, Route to Pharmacy Electronically, [id number], [facility]/pharmacy #1972, 161... Start Date: 07/05/23 Status: [...] Confirmed Active OCD Confirmed Active *Joseph Resendez, Cell Tender, [facility] [phone] Confirmed Active 1Jantoinette Streeter [facility] [place] 2Case Director Patient Parish Proctor ([facility]); Psychiatrist - Dr [...] Team Personnel Name: Mitch Lopez Position: [facility] PCO Associate Professional Member Role: PCP Address: Address: [address] [place] [address] [place] [address]- [place] Care Team Related Persons Name: GABINO CASTANEDA Address: home [address] [place] [address] Name: JERROD BEAUCHAMP Address: [place], [place] Name: BRE MIRANDA Address: home [address] [place] [address] Name: ALEYDA BEE Address: home [address] [place] [address] Name: ALEYDA BEE Address: [address] [place] [address] Name: ROMIE PUENTES Address: home [address] [place] [id number]
--- OUTSIDE RECORDS SUMMARY | 2024-04-05 15:28 | XMS_ITS | Continuity of Care Document ---
Author Organization [facility] Address [address] [place] [address]- Care Team Providers Care Supervisor Of Officials Name Role Phone Mitch Lopez Primary Care Physician [phone] [facility] 08/13/22 - 09/12/22 [facility] [address] [place] [address]- Attending Physician: Jana Mercado Admitting Physician: AdmtrJana Referring Physician: Admtr, ArEdilson Allergies, Adverse Reactions, Alerts Substance Reaction [...] at [facility] on [facility] in [place]. 2Location History: [facility] 3Result Comment: [06/27/2014] PT HAD AT [facility] 4Admin Note: VIS GIVEN VIS DATE 01/30/2012 5Admin Note: flulaval vis given vis date 02/22/2011 6Admin Note: vis given 03/09/10 7Result Comment: Received at [facility] on [facility] 8Admin Note: VIS given 9Admin Note: 2nd [...] Refills, Maintenance, 04/15/22 16:54:00 EDT, [facility]/pharmacy #1972, Partial [...] Refills, Maintenance, 07/07/22 18:54:00 EST, [facility], 30, APPLY 1 PATCH TOPICALLY DAILY NEEDED [...] Refills, Maintenance, 06/19/22 12:17:00 EST, [facility], 160, cm, 06/07/22 9:36:00 EST, Height, 88.2, kg, 11/11/21 9:53:00 EDT,Dry Weight Start Date: 06/19/22 Status: Ordered predniSONE 10 mg oral tablet [...] Soft Stop, 03/15/22 14:32:00 EDT, Powder, [facility]/pharmacy #1972, Partial fill upon patient request if the prescription is for a schedule II opioid drug., 0.5 mL Intramuscul... Start Date: 03/15/22 Status: Ordered Spiriva Respimat 1.25 mcg/inh inhalation aerosol 2 puffs, Inhalation, Daily, # 1 each, 11 Refills, Maintenance, 06/07/22 10:22:00 EST, [facility]/pharmacy #1972, [...] 13:48:00 EST, Aerosol, Route to Pharmacy Electronically, [id number], [facility]/pharmacy #1972, 160... Start Date: 08/29/22 Status: Ordered terazosin 2 mg oral capsule 1, capsule, By Mouth, Daily at bedtime, INSTR:CONTINUE TAKING TILL STONE EXPULSION OR TILL 4 WEEKS AND THEN DISCONTINUE., # 30 capsule, Refills 0, Maintenance, 03/28/22 14:40:00 EDT, Route to Pharmacy Electronically, [facility] STORE 28499, 160, cm, 03/15/22... Start Date: 03/28/22 Status: [...] fewer, # 60 tablet, 0 Refills, Maintenance, 09/02/22 17:13:00 EST, [facility], Partial fill upon patient request if the prescription is for a sched... Start Date: 09/02/22 Status: Ordered traMADol 50 mg oral tablet [...] Refills, Maintenance, 06/16/22 9:46:00 EST, [facility], 160, cm, 06/07/22 9:36:00 EST, Height, 88.2, [...] Confirmed Active OCD Confirmed Active *Joseph Resendez, Display Artist, ICP [phone] Confirmed Active 1Jantoinette Streeter [facility] [place] 2Case Lending Consultant Parish Proctor ([facility]); Psychiatrist [...] BRCA1/2 negative,seen by genetics 6follow up at [facility] GI - Dr Richey. Multiple endoscopies, all normal. Other diagnosis is Non-ulcer dyspepsia Social History Social History Type Response Smoking Status Never smoker entered on: 02/07/14 Sex Female Patient Care team information Care Team Personnel Name: Mitch Lopez Position: S PCO Associate Professional Member Role: PCP Address: Address: [address] [place] [address] [place] [address]- Care Team Related Persons Name: GABINO CASTANEDA Address: home [address] [place] [address] Name: BRE MIRANDA Address: [address] [place] [address] Name: ALEYDA BEE Address: home [address] [place], [place] Name: ALEYDA BEE Address: home [address] [place], [place] Name: ROMIE PUENTES Address: home [address] [place] [id number]
--- OUTSIDE RECORDS SUMMARY | 2024-04-05 15:28 | XMS_ITS | Continuity of Care Document ---
Author Organization [facility] Address [address] [place] [address], [address] [place] [address]- Care Team Providers Care Orthotist/Prosthetist Name Role Phone Mitch Lopez Primary Care Physician [facility]counter [facility] Date[facility]): 10/04/21 - 10/11/21 [facility] [address] [place] [address] Drive, [address] [place], [place] [address] Attending Physician: Deysi Gomez DO Allergies, Adverse [...] at [facility] on [facility] [address] 2Admin Note: VIS given 3Admin Note: Administered at [facility] on [facility] in [place]. 4Location History: [facility] [...] # 120 tablet, 2 Refills, [facility], 160.02, cm, 07/05/21 10:30:00 EST, Height, 85, kg, 03/11/21 17:07:00 EDT, Dry Weight Start Date: 08/22/21 Status: Ordered meloxicam 7.5 mg oral tablet 1 tablet, By Mouth, Daily, FOR ARTHRITIS PAIN. TAKE WITH FOOD, # 30 tablet, 1 Refills, [facility], 160.02, cm, 09/16/21 14:31:00 EST, Height, 85, [...] 09/07/21 11:12:00 EST, Route to Pharmacy Electronically, [id number], [facility]/pharmacy #1972, 160.02, [...] 17:59:00 EST, Aerosol, Route to Pharmacy Electronically, [id number], [facility]/pharmacy #1972, 160... [...] # 30 capsule, 5 Refills, [facility], 160.02, cm, 07/05/21 10:30:00EST, Height, 85, kg, [...] [facility], ICP [phone](Confirmed) Active 1Jantoinette Streeter [facility] [place] 2Case Laborer [place] Parish Proctor ([facility]); Psychiatrist - Dr Konstantin Narvaez 3admitted at adult partial hospitalization program (adult intensive short term out-pt psychiatric program). 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 BRCA1/2 negative,seen by genetics 6follow up at [facility] GI - Dr Richey. Multiple endoscopies, all normal. Other diagnosis is Non-ulcer dyspepsia Vital Signs Most recent to oldest [Reference Range]: 1 Height 160.02 cm (10/04/21 2:38 PM) Weight 78 kg (10/04/21 2:38 PM) Body Mass Index [18.5-24.99] 30.46 *>HHI* (10/04/21 2:38 PM) Social History Social History Type Response Smoking Status Never smoker entered on: 02/07/14 Sex Female
--- OUTSIDE RECORDS SUMMARY | 2024-04-05 15:28 | XMS_ITS | Continuity of Care Document ---
Author Organization [facility] Address [address] [place] [address]- Care Team Providers Care Avionics Manager Name Role Phone Mitch Lopez Primary Care Physician [facility]counter [facility] Date(s): 06/08/23 - 07/08/23 [facility] [address] [place], [place] [address] Allergies, Adverse Reactions, Alerts Substance [...] [facility] on [facility] in [place]. 2Location History: [facility] 3Result Comment: [06/27/2014] PT HAD AT [facility] 4Admin Note: VIS GIVEN VIS DATE 01/30/2012 5Admin Note: flulaval vis given vis date 02/22/2011 6Admin Note: vis given 03/09/10 7Result Comment: Received at [facility] on [facility] 8Admin Note: VIS given [...] Refills, Maintenance, 07/06/23 14:28:00 EST, [facility], 25, USE 1 APPLICATION TOPICALLY 4 TIMES A DAY NEEDED MODERATE PAIN, 161, cm, 07/05/23 10:50:00 EST, He... Start Date: 07/06/23 Status: Ordered hydrOXYzine hydrochloride 25 mg oral tablet 1 tablet, By Mouth, 2 times a day, PRN NEEDED FOR ANXIETY, # 60 tablet, 2 Refills, Maintenance, 06/09/23 19:43:00 EST, [facility], 161, cm, 05/27/23 9:13:00 EDT, Height, 85, kg, 09/16/22 6:46:00 EST, Dry Weight Start Date: 06/09/23 Status: Ordered lidocaine 5% topical film 1 patch, Topically, Daily, PRN NEEDED FOR PAIN REMOVE AFTER 12 HOURS, # 30 patch, 1 Refills, Maintenance, 03/29/23 15:10:00 EDT, [facility]/pharmacy #1972, 30, 1 patch Topically Daily,PRN: NEEDED FOR PAIN REMOVE AFTER 12 HOURS, 161, cm, 03/29/23 14:07:0... Start Date: 03/29/23 Status: Ordered Mapap Arthritis Pain 650 mg oral tablet, extended release 2 tablet = 1,300 mg, By Mouth, Every 8 hours, PRN as needed for pain, # 100 tablet, 1 Refills, Maintenance, 03/30/23 21:21:00 EDT, ER Tablet, [facility]/pharmacy [...] [facility] STORE 43232, 161, cm, 03/29/23 14:07:00 EDT, Height, 85, [...] 10:54:00 EST, Aerosol, Route to Pharmacy Electronically, [id number], [facility], 161... Start Date: 07/05/23 Status: [...] capsule, 1 Refills, Maintenance, 03/22/23 11:50:00 EDT, [facility] STORE 24970, 161, cm, 03/20/23 17:26:00 EDT, Height, 85, [...] Confirmed Active OCD Confirmed Active *Joseph Resendez, Loaders, ICP [phone] Confirmed Active 1Jantoinette Streeter [facility] 2Case Matrix Drier Tender Parish Proctor ([facility]); Psychiatrist [...] BRCA1/2 negative,seen by genetics 6follow up at [facility] GI - Dr Richey. Multiple endoscopies, all normal. Other diagnosis is Non-ulcer dyspepsia Social History Social History Type Response Smoking Status Never smoker entered on: 02/07/14 Sex Female Patient Care team information Care Team Personnel Name: Mitch Lopez Position: S PCO Associate Professional Member Role: PCP Address: Address: [address] [place] [address] [place] [address]- Care Team Related Persons Name: GABINO CASTANEDA Address: home [address] [place] [address] Name: JERROD BEAUCHAMP Address: [place], [place] Name: BRE MIRANDA Address: [address] [place] [address] Name: ALEYDA BEE Address: [address] [place] [address] Name: ALEYDA BEE Address: [address] [place] [address] Name: ROMIE PUENTES Address: [address] [place] [address]
--- OUTSIDE RECORDS SUMMARY | 2024-04-05 15:28 | XMS_ITS | Continuity of Care Document ---
Author Organization [facility] Address [address] [place] [address]- Care Team Providers Care Electric Meter Setter Name Role Phone Mitch Lopez Primary Care Physician [phone] [facility]counter [facility] Date(s): 09/01/22 - 10/01/22 [facility] [address] [place] [address]- Allergies, Adverse Reactions, Alerts Substance Reaction Severity [...] Patient Refuses 1Admin Note: Administered at [facility] on [facility] in [place]. 2Location History: [facility] pharmacy 3Result Comment: [06/27/2014] PT HAD AT [facility] 4Admin Note: VIS GIVEN VIS DATE 01/30/2012 5Admin Note: flulaval vis given vis date 02/22/2011 6Admin Note: vis given 03/09/10 7Result Comment: Received at [facility] on [facility] 8Admin Note: VIS given 9Admin [...] patch, 1 Refills, Maintenance, 07/07/22 18:54:00 EST, [facility] STORE 11539, 30, APPLY 1 PATCH TOPICALLY DAILY NEEDED [...] Refills, Maintenance, 09/26/22 8:34:00 EST, [facility], 161, cm, 09/19/22 9:35:00 EST, Height, 85, [...] 13:48:00 EST, Aerosol, Route to Pharmacy Electronically, [id number], [facility]/pharmacy #1972, 160... Start Date: 08/29/22 Status: Ordered [...] 5 Refills, Maintenance, 06/15/22 10:39:00 EST, Aerosol, [facility]/pharmacy #1972, Partial fill upon patient request if the prescription is for a schedule II opioid... Start Date: 06/15/22 Status: Ordered verapamil 180 mg oral capsule, extended release 1 capsule, By Mouth, Daily, # 30 capsule, 5 Refills, Maintenance, 06/16/22 9:46:00 EST, [facility], 160, cm, 06/07/22 9:36:00 EST, Height, 88.2, [...] Active OCD Confirmed Active *Joseph Resendez, Manager Practice, ICP [phone] Confirmed Active 1Jantoinette Streeter [facility] [place] 2Case Tobacco Blender Parish Esthela ([facility]); Psychiatrist - Dr [...] Care Team Personnel Name: Mitch Lopez Position: [facility] PCO Associate Professional Member Role: PCP Address: Address: [address] [place] [address] [place] [address]- [place] Care Team Related Persons Name: GABINO CASTANEDA Address: home [address] [place] [address] Name: BRE MIRANDA Address: [address] [place] [address] Name: ALEYDA BEE Address: [address] [place], [place] Name: ALEYDA BEE Address: [address] [place] [address] Name: ROMIE PUENTES Address: home [address] [place] [address]
--- OUTSIDE RECORDS SUMMARY | 2024-04-05 15:28 | XMS_ITS | Continuity of Care Document ---
Author Organization [facility] Address [address] [place] [address]- Care Team Providers Care Mower Mechanic Name Role Phone Mitch Lopez Primary Care Physician [phone] [facility]counter [facility] Date(s): 12/07/21 - 01/06/22 [facility] [address] [place] [address]- Allergies, Adverse Reactions, Alerts Substance Reaction Severity [...] Given Patient Refuses 1Admin Note: Administered at [facility] on [facility] in [place]. 2Location History: [facility] pharmacy 3Result Comment: [06/27/2014] PT HAD AT [facility] 4Admin Note: VIS GIVEN VIS DATE 01/30/2012 5Admin Note: flulaval vis given vis date 02/22/2011 6Admin Note: vis given 03/09/10 7Result Comment: Received at [facility] on [facility] 8Admin Note: VIS given [...] a day, # 120 tablet, 2 Refills, [facility] STORE 08244, 160, cm, 11/22/21 10:23:00 EDT, Height, 88.2, [...] 01/03/22 11:58:00 EDT, Route to Pharmacy Electronically, [id number], [facility]/pharmacy #1972, 160, cm, 01/03/22 11:03:00 EDT, [...] 11:56:00 EDT, Aerosol, Route to Pharmacy Electronically, [id number], [facility], 160... Start Date: 01/03/22 Status: Ordered Tessalon Perles 100 mg oral capsule 1 capsule = 100 mg, By Mouth, 3 times a day, PRN Cough, # 20 capsule, 0 Refills, Maintenance, 09/16/21 15:25:00 EST, [facility]/pharmacy #1972, Partial fill upon patient request if the prescription is for aschedule II opioid drug., 160.02, cm, 09/16/21 14:3... Start Date: 09/16/21 Status: Ordered verapamil 180 mg oral capsule, extended release 1 capsule, By Mouth, Daily, # 30 capsule, 5 Refills, [facility], 160.02, cm, 07/05/21 10:30:00EST, Height, 85, kg, [...] *Joseph Resendez, [facility] [phone](Confirmed) Active 1Jantoinette Streeter [facility] Psychiatry [place] 2Case Menhaden Vessel Pilot Parish Proctor ([facility]); Psychiatrist - [...] BRCA1/2 negative,seen by genetics 6follow up at [facility] GI - Dr Desilets. Multiple endoscopies, all normal. Other diagnosis is Non-ulcer dyspepsia Social History Social History Type Response Smoking Status Never smoker entered on: 02/07/14 Sex Female
--- OUTSIDE RECORDS SUMMARY | 2024-04-05 15:29 | XMS_ITS | Continuity of Care Document ---
Author Organization [facility] Address [address] [place] [address], [address] [place] [address]- Care Team Providers Care Assistant Professor Of Music Name Role Phone Mitch Lopez Primary Care Physician [phone] [facility]): 09/16/21 - 10/27/21 [facility] [address] [place] [address], [address] [place] [address]- Attending Physician: Deysi Gomez DO Allergies, Adverse [...] at [facility] on [facility] [address] 2Admin Note: VIS given 3Admin Note: Administered at [facility] on [facility] in [place]. 4Location History: [facility] pharmacy 5Result Comment: [06/27/2014] PT HAD AT [facility] 6Admin Note: VIS GIVEN VIS DATE [...] A DAY, # 120 tablet, 2 Refills, [facility] STORE 77108, 160.02, cm, 07/05/21 10:30:00 EST, Height, 85, kg, 03/11/21 17:07:00 EDT, Dry Weight Start Date: 08/22/21 Status: Ordered meloxicam 7.5 mg oral tablet 1 tablet, By Mouth, Daily, FOR ARTHRITIS PAIN. TAKE WITH FOOD, # 30 tablet, 1 Refills, [facility] STORE 22828, 160.02, cm, 09/16/21 14:31:00 EST, Height, 85, [...] 09/07/21 11:12:00 EST, Route to Pharmacy Electronically, [id number], [facility]/pharmacy #1972, 160.02, [...] 17:59:00 EST, Aerosol, Route to Pharmacy Electronically, [id number], [facility], 160... Start Date: 09/08/21 Status: [...] # 30 capsule, 5 Refills, [facility], 160.02, cm, 07/05/21 10:30:00EST, Height, 85, kg, [...] Resendez, Care Coord [facility], [facility] [phone](Confirmed) Active Dyan Streeter [facility] 2Case Conservation Educator Parish Proctor ([facility]); [...]
--- OUTSIDE RECORDS SUMMARY | 2024-04-05 15:29 | XMS_ITS | Continuity of Care Document ---
Author Organization [facility] Address [address] [place] [address]- Care Team Providers Care Revenue Inspector Name Role Phone Mitch Lopez Primary Care Physician [facility]counter [facility]): 08/25/23 - 09/24/23 [facility] [address] [place], [place] [address] Allergies, Adverse Reactions, Alerts [...] 18 07/18/06 Given 1Admin Note: Administered at [facility] on [facility] in [place]. 2Location History: [facility] pharmacy 3Result Comment: [06/27/2014] PT HAD AT [facility] 4Admin Note: VIS GIVEN VIS DATE 01/30/2012 5Admin Note: flulaval vis given vis date 02/22/2011 6Admin Note: vis given 03/09/10 7Result Comment: Received at [facility] on [facility] 8Admin Note: VIS given 9Admin Note: [...] opioid drug. Start Date: 09/14/22 Status: Ordered [facility] MELATONIN 3 MG TABLET [facility] MELATONIN 3 MG TABLET, 1, tablet, By Mouth, Daily at bedtime, # 30 tablet, 3 Refills, Maintenance, 03/31/23 18:55:00 EDT, 161, cm, 03/29/23 14:07:00 EDT, Height, 85, kg, 09/16/22 6:46:00 EST, DryWeight Start Date: 03/31/23 Status: Ordered diclofenac 1% topical gel 1 application, Topically, 4 times a day, PRN NEEDED, MODERATE PAIN., # 100 Gm, 3 Refills, Maintenance, 08/28/23 14:07:00 EST, [facility]/pharmacy #1972, 25, 1 application Topically 4 times a day,PRN: NEEDED,Instr:MODERATE PAIN., 161, cm, 08/16/23 11:00:... Start Date: 08/28/23 Status: Ordered hydrOXYzine hydrochloride 25 mg oral tablet 1 tablet, By Mouth, 2 times a day, PRN NEEDED FOR ANXIETY, # 60 tablet, 2 Refills, Maintenance, 06/09/23 19:43:00 EST, [facility] STORE 08553, 161, cm, 05/27/23 9:13:00 EDT, Height, 85, kg, 09/16/22 6:46:00 EST, Dry Weight Start Date: 06/09/23 Status: Ordered lidocaine 5% topical film 1 patch, Topically, Daily, PRN NEEDED FOR PAIN REMOVE AFTER 12 HOURS, # 30 patch, 1 Refills, Maintenance, 07/28/23 17:33:00 EST, [facility] STORE 62549, 30, APPLY 1 PATCH TOPICALLY DAILY NEEDED [...] tablet, 0 Refills, Maintenance, 03/31/23 18:55:00 EDT, [facility] STORE 65100, 161, cm, 03/29/23 14:07:00 EDT, Height, 85, [...] 10:54:00 EST, Aerosol, Route to Pharmacy Electronically, [id number], [facility], 161... Start Date: 07/05/23 Status: [...] Active OCD Confirmed Active *Joseph Resendez, Medical Staff Physician, ICP [phone] Confirmed Active 1Jantoinette Streeter [facility] [place] 2Case Carpentry Supervisor Parish Proctor ([facility]); Psychiatrist - [...] Professional Member Role: PCP Address: Address: [address] [place] [address] [place] [address]- Care Team Related Persons Name: GABINO CASTANEDA Address: [address] [place] [address] Name: JERROD BEAUCHAMP Address: [place], [place] Name: BRE MIRANDA Address: [address] [place] [address] Name: ALEYDA BEE Address: home [address] [place] [id number] Name: ALEYDA BEE Address: [address] [place] [address] Name: ROMIE PUENTES Address: [address] [place] [address]
--- OUTSIDE RECORDS SUMMARY | 2024-04-05 15:29 | XMS_ITS | Continuity of Care Document ---
Author Organization [facility] Address [address] [place] [address]- Care Team Providers Care External Relations Director Name Role Phone Mitch Lopez Primary Care Physician [phone] [facility]): [facility] - 01/13/24 [facility] [address] [facility] [address] [place], [place] [phone] Attending Physician: Jorge Fregoso MD Admitting Physician: [...] 18 07/18/06 Given 1Admin Note: Administered at [facility] on [facility] in [place]. 2Location History: [facility] pharmacy 3Result Comment: [06/27/2014] PT HAD AT [facility] 4Admin Note: VIS GIVEN VIS DATE 01/30/2012 5Admin Note: flulaval vis given vis date 02/22/2011 6Admin Note: vis given 03/09/10 7Result Comment: Received at [facility] on [facility] 8Admin Note: VIS given 9Admin Note: 2nd [...] opioid drug. Start Date: 09/14/22 Status: Ordered [facility] MELATONIN 3 MG TABLET [facility] MELATONIN 3 MG TABLET, [...] tablet, 2 Refills, Maintenance, 10/17/23 11:01:00 EDT, [facility] STORE 39899, 161, cm, 09/29/23 11:18:00 EST, Height, 82.1, [...] tablet, 0 Refills, Maintenance, 03/31/23 18:55:00 EDT, [facility] STORE 87090, 161, cm, 03/29/23 14:07:00 EDT, Height, 85, [...] Confirmed Active OCD Confirmed Active *Joseph Resendez, Sales Clerk Food, ICP [phone] Confirmed Active 1Jantoinette Streeter [facility]iat[facility] [place] 2Case Pottery Decorator Parish Proctor ([facility], [...] negative,seen by genetics 6follow up at [facility] GI - Dr Richey. Multiple endoscopies, all normal. Other diagnosis is Non-ulcer dyspepsia Social History Social History Type Response Smoking Status Never smoker entered on: 02/07/14 Sex Female Patient Care team information Care Team Personnel Name: Mitch Lopez Position: S PCO Associate Professional Member Role: PCP Address: Address: [address] [place] [address] [place] [address]- Care Team Related Persons Name: GABINO CASTANEDA Address: home [address] [place] [address] Name: JERROD BEAUCHAMP Address: home [place], [place] Name: BRE MIRANDA Address: home [address] [place] [address] Name: ALEYDA BEE Address: home [address] [place] [address] Name: ALEYDA BEE Address: home [address] [place] [address] Name: ROMIE PUENTES Address: home [address] [place] [address]
--- OUTSIDE RECORDS SUMMARY | 2024-04-05 15:29 | XMS_ITS | Continuity of Care Document ---
Author Organization [facility] Adult [facility] Address [address] [place] [address]- Care Team Providers Care Neuropsychiatrist Name Role Phone Mitch Lopez Primary Care Physician [facility]counter [facility]): 09/06/23 - 10/06/23 [facility] [address] [place] [id number] Allergies, Adverse Reactions, Alerts Substance [...] 07/18/06 Given 1Admin Note: Administered at [facility] on [facility] in [place]. 2Location History: [facility] pharmacy 3Result Comment: [06/27/2014] PT HAD AT [facility] 4Admin Note: VIS GIVEN VIS DATE 01/30/2012 5Admin Note: flulaval vis given vis date 02/22/2011 6Admin Note: vis given 03/09/10 7Result Comment: Received at [facility] on [facility] 8Admin Note: VIS given 9Admin [...] drug. Start Date: 09/14/22 Status: Ordered [facility] MELATONIN 3 MG TABLET [facility] MELATONIN 3 MG TABLET, 1, tablet, By Mouth, Daily at bedtime, # 30 tablet, 3 Refills, Maintenance, 03/31/23 18:55:00 EDT, 161, cm, 03/29/23 14:07:00 EDT, Height, 85, kg, 09/16/22 6:46:00 EST, DryWeight Start Date: 03/31/23 Status: Ordered diclofenac 1% topical gel 1 application, Topically, 4 times a day, PRN NEEDED, MODERATE PAIN., # 100 Gm, 3 Refills, Maintenance, 08/28/23 14:07:00 EST, [facility]/pharmacy #1972, 25, 1 application Topically 4 times a day,PRN: NEEDED,Instr:MODERATE PAIN., 161, cm, 08/16/23 11:00:... Start Date: 08/28/23 Status: Ordered hydrOXYzine hydrochloride 25 mg oral tablet 1 tablet, By Mouth, 2 times a day, PRN NEEDED FOR ANXIETY, # 60 tablet, 2 Refills, Maintenance, 06/09/23 19:43:00 EST, [facility] STORE 87947, 161, cm, 05/27/23 9:13:00 EDT, Height, 85, kg, 09/16/22 6:46:00 EST, Dry Weight Start Date: 06/09/23 Status: Ordered lidocaine 5% topical film 1 patch, Topically, Daily, PRN NEEDED FOR PAIN REMOVE AFTER 12 HOURS, # 30 patch, 1 Refills, Maintenance, 07/28/23 17:33:00 EST, [facility] STORE 90232, 30, APPLY 1 PATCH TOPICALLY DAILY NEEDED FOR PAIN REMOVE AFTER 12 HOURS, 161, cm, 07/20/23 10:04:00... Start Date: 07/28/23 Status: Ordered Lidoderm 5% film 1 patch, Topically, Daily, remove patches after 12 hours, # 30 patch, 0 Refills, Maintenance, 08/16/23 11:10:00 EST, [facility]/pharmacy #1972, [...] 0 Refills, Maintenance, 03/31/23 18:55:00 EDT, [facility] STORE 01448, 161, cm, 03/29/23 14:07:00 EDT, Height, 85, [...] 0 Refills, Maintenance, 07/02/23 8:58:00 EST, [facility]/pharmacy #1972, [...] 10:54:00 EST, Aerosol, Route to Pharmacy Electronically, [id number], [facility]/pharmacy #1972, 161... Start Date: 07/05/23 Status: Ordered [...] Confirmed Active OCD Confirmed Active *Joseph Resendez, Fabric Worker, [facility] [phone] Confirmed Active 1Jantoinette Streeter [facility] [place] 2Case Citrus Fruit Colorer aPrish Proctor ([facility]); Psychiatrist - Dr [...] BRCA1/2 negative,seen by genetics 6follow up at [facility] GI - Dr Richey. Multiple endoscopies, all normal. Other diagnosis is Non-ulcer dyspepsia Social History Social History Type Response Smoking Status Never smoker entered on: 02/07/14 Sex Female Patient Care team information Care Team Personnel Name: Mitch Lopez Position: [facility] PCO Associate Professional Member Role: PCP Address: Address: [address] [place] [address] [place] [address]- [place] Care Team Related Persons Name: GABINO CASTANEDA Address: home [address] [place] [address] Name: JERROD BEAUCHAMP Address: [place], [place] Name: BRE MIRANDA Address: home [address] [place] [address] Name: ALEYDA BEE Address: home [address] [place] [address] Name: ALEYDA BEE Address: home [address] [place] [address] Name: ROMIE PUENTES Address: home [address] [place] [address]
--- OUTSIDE RECORDS SUMMARY | 2024-04-05 15:29 | XMS_ITS | Continuity of Care Document ---
Author Organization [facility] Address [address] [place] [address]- Care Team Providers Care Fish Drier Name Role Phone Mitch Lopez Primary Care Physician [facility] 06/07/23 - 07/07/23 [facility] [address] [place], [place] [address] Allergies, Adverse Reactions, Alerts Substance Reaction Severity [...] 18 07/18/06 Given 1Admin Note: Administered at [facility] on [facility] in [place]. 2Location History: [facility] pharmacy 3Result Comment: [06/27/2014] PT HAD AT [facility] 4Admin Note: VIS GIVEN VIS DATE 01/30/2012 5Admin Note: flulaval vis given vis date 02/22/2011 6Admin Note: vis given 03/09/10 7Result Comment: Received at [facility] on [facility] 8Admin Note: VIS [...] opioid drug. Start Date: 09/14/22 Status: Ordered [facility] MELATONIN 3 MG TABLET [facility] MELATONIN 3 MG TABLET, 1, tablet, By Mouth, Daily at bedtime, # 30 tablet, 3 Refills, Maintenance, 03/31/23 18:55:00 EDT, 161, cm, 03/29/23 14:07:00 EDT, Height, 85, kg, 09/16/22 6:46:00 EST, DryWeight Start Date: 03/31/23 Status: Ordered diclofenac 1% topical gel 1 application, Topically, 4 times a day, PRN NEEDED, MODERATE PAIN., # 100 Gm, 3 Refills, Maintenance, 07/06/23 14:28:00 EST, [facility], 25, USE 1 APPLICATION TOPICALLY 4 TIMES A DAY NEEDED MODERATE PAIN, 161, cm, 07/05/23 10:50:00 EST, He... Start Date: 07/06/23 Status: Ordered hydrOXYzine hydrochloride 25 mg oral tablet 1 tablet, By Mouth, 2 times a day, PRN NEEDED FOR ANXIETY, # 60 tablet, 2 Refills, Maintenance, 06/09/23 19:43:00 EST, [facility], 161, cm, 05/27/23 9:13:00 EDT, Height, 85, kg, 09/16/22 6:46:00 EST, Dry Weight Start Date: 06/09/23 Status: Ordered lidocaine 5% topical film 1 patch, Topically, Daily, PRN NEEDED FOR PAIN REMOVE AFTER 12 HOURS, # 30 patch, 1 Refills, Maintenance, 03/29/23 15:10:00 EDT, [facility]/pharmacy #1972, 30, 1 patch Topically Daily,PRN: NEEDED FOR PAIN REMOVE AFTER 12 HOURS, 161, cm, 03/29/23 14:07:0... Start Date: 03/29/23 Status: Ordered Mapap Arthritis Pain 650 mg oral tablet, extended release 2 tablet = 1,300 mg, By Mouth, Every 8 hours, PRN as needed for pain, # 100 tablet, 1 Refills, Maintenance, 03/30/23 21:21:00 EDT, ER Tablet, [facility]/pharmacy #1972, Partial fill upon patient request if [...] tablet, 0 Refills, Maintenance, 03/31/23 18:55:00 EDT, [facility] STORE 35997, 161, cm, 03/29/23 14:07:00 EDT, Height, 85, [...] 10:54:00 EST, Aerosol, Route to Pharmacy Electronically, [id number], [facility], 161... Start Date: 07/05/23 Status: [...] capsule, 1 Refills, Maintenance, 03/22/23 11:50:00 EDT, [facility] STORE 50798, 161, cm, 03/20/23 17:26:00 EDT, Height, 85, [...] Active OCD Confirmed Active *Joseph Resendez, Casing Splitter, ICP [phone] Confirmed Active 1Jantoinette Streeter [facility] 2Case Pre Billing Clinician Parish Proctor ([facility]); Psychiatrist [...] Professional Member Role: PCP Address: Address: [address] [place] [address] [place] [address]- Care Team Related Persons Name: GABINO CASTANEDA Address: home [address] [place] [address] Name: JERRDO BEAUCHAMP Address: [place], [place] Name: BRE MIRANDA Address: home [address] [place] [address] Name: ALEYDA BEE Address: home [address] [place] [address] Name: ALEYDA BEE Address: home [address] [place] [address] Name: ROMIE PUENTES Address: home [address] [place] [address]
--- OUTSIDE RECORDS SUMMARY | 2024-04-05 15:29 | XMS_ITS | Continuity of Care Document ---
Author Organization [facility] Adult [facility] Address [address] [place] [address]- Care Team Providers Care Grinding Mill Operator Name Role Phone Mitch Lopez Primary Care Physician [phone] [facility]counter [facility](s): 10/28/22 - 11/27/22 [facility] [address] [place] [address]- Allergies, Adverse Reactions, Alerts Substance Reaction Severity [...] Given Patient Refuses 1Admin Note: Administered at [facility] on [facility] in [place]. 2Location History: [facility] pharmacy 3Result Comment: [06/27/2014] PT HAD AT [facility] 4Admin Note: VIS GIVEN VIS DATE 01/30/2012 5Admin Note: flulaval vis given vis date 02/22/2011 6Admin Note: vis given 03/09/10 7Result Comment: Received at [facility] on [facility] 8Admin Note: VIS [...] patch, 1 Refills, Maintenance, 07/07/22 18:54:00 EST, [facility] STORE 23555, 30, APPLY 1 PATCH TOPICALLY DAILY NEEDED [...] 10/31/22 16:24:00 EDT, Route to Pharmacy Electronically, [facility] [...] 19:11:00 EDT, Aerosol, Route to Pharmacy Electronically, [id number], [facility], 161... Start Date: 11/24/22 Status: [...] Confirmed Active OCD Confirmed Active *Joseph Resendez, Table Assembler Metal, ICP [phone] Confirmed Active 1Jantoinette Streeter [facility] [place] 2Case J2Ee Application Developer Parish Esthela ([facility]); Psychiatrist - Dr Konstantin Narvaez 3admitted [...] at [facility] GI - Dr Richey. Multiple endoscopies, all normal. Other diagnosis is Non-ulcer dyspepsia Social History Social History Type Response Smoking Status Never smoker entered on: 02/07/14 Sex Female Patient Care team information Care Team Personnel Name: Mitch Lopez Position: S PCO Associate Professional Member Role: PCP Address: Address: [address] [place] [address] [place] [address]- Care Team Related Persons Name: GABINO CASTANEDA Address: home [address] [place] [address] Name: JERROD BEAUCHAMP Address: [place], [place] Name: BRE MIRANDA Address: home [address] [place] [address] Name: ALEYDA BEE Address: home [address] [place] [address] Name: ALEYDA BEE Address: home [address] [place], [place] Name: ROMIE PUENTES Address: home [address] [place] [address]
--- OUTSIDE RECORDS SUMMARY | 2024-04-05 15:29 | XMS_ITS | Continuity of Care Document ---
Author Organization [facility] ter Address [address] [place] [address]- Care Team Providers Care Rug Dyer Helper Name Role Phone Mitch Lopez Primary Care Physician [facility]): 03/12/22 - 05/05/[address] [address]- Attending Physician: Mitch Lopez Admitting Physician: Mitch [...] Note: Administered at [facility] on [facility] in [place]. 2Location History: [facility] pharmacy 3Result Comment: [06/27/2014] PT HAD AT [facility] 4Admin Note: VIS GIVEN VIS DATE 01/30/2012 5Admin Note: flulaval vis given vis date 02/22/2011 6Admin Note: vis given 03/09/10 7Result Comment: Received at [facility] on [facility] [...] 18:39:00 EDT, Aerosol, Route to Pharmacy Electronically, [id number], [facility], [place] to substitute ventolin, 160, [...] mg, By Mouth, Daily, for 7 days, # 14 tablet, 0 Refills, Acute 05/11/22 16:24:00 EDT,05/04/22 16:24:00 EDT, Tablet, [facility], Partial fill upon patient request if the prescription is for a schedule II opioid drug., 160, cm, 10... Start Date: 05/04/22 Stop Date: 05/11/22 Status: Ordered Premarin 0.3 mg oral tablet [...] 01/03/22 11:58:00 EDT, Route to Pharmacy Electronically, [id number], [facility]/pharmacy #1972, 160, cm, 01/03/22 11:03:00 EDT, [...] each, 11 Refills, Maintenance, 01/03/22 11:57:00 EDT, [facility]/pharmacy #1972, Partial fill [...] 11:56:00 EDT, Aerosol, Route to Pharmacy Electronically, [id number], [facility]/pharmacy #1972, 160... Start Date: 01/03/22 Status: Ordered terazosin 2 mg oral capsule 1, capsule, By Mouth, Daily at bedtime, INSTR:CONTINUE TAKING TILL STONE EXPULSION OR TILL 4 WEEKS AND THEN DISCONTINUE., # 30 capsule, Refills 0, Maintenance, 03/28/22 14:40:00 EDT, Route to Pharmacy Electronically, [facility], 160, cm, 03/15/22... Start Date: 03/28/22 Status: [...] # 30 capsule, 5 Refills, [facility], 160.02, cm, 07/05/21 10:30:00EST, Height, 85, kg, [...] Confirmed Active OCD Confirmed Active *Joseph Resendez, Protohistorian, ICP [phone] Confirmed Active 1Jantoinette Streeter [facility] [place] Psychiatry [place] 2Case Special Librarian Parish Proctor ([facility]); Psychiatrist - Dr Konstantin Narvaez [...] at [facility] GI - Dr Richey. Multiple endoscopies, all normal. Other diagnosis is Non-ulcer dyspepsia Social History Social History Type Response Smoking Status Never smoker entered on: 02/07/14 Sex Female Patient Care team information Personnel Name: Mitch Lopez Address: Address: [address] [place] [address]
--- OUTSIDE RECORDS SUMMARY | 2024-04-05 15:29 | XMS_ITS | Continuity of Care Document ---
Author Organization [facility] Adult [facility] Address [address] [place] [address]- Care Team Providers Care Assistant Project Engineer Name Role Phone Mitch Lopez Primary Care Physician [facility]): 02/23/23 - 03/25/23 [facility] [address] [place], [place] [address] Allergies, Adverse Reactions, Alerts [...] 07/18/06 Given 1Admin Note: Administered at [facility] on [facility] in [place]. 2Location History: [facility] pharmacy 3Result Comment: [06/27/2014] PT HAD AT [facility] 4Admin Note: VIS GIVEN VIS DATE 01/30/2012 5Admin Note: flulaval vis given vis date 02/22/2011 6Admin Note: vis given 03/09/10 7Result Comment: Received at [facility] on [facility] 8Admin Note: VIS given 9Admin Note: 2nd [...] for a schedule II opioid drug., 161, lisa, 01/11/23... Start Date: 01/11/23 Status: Ordered hydrOXYzine hydrochloride 25 mg oral tablet 1 tablet = 25 mg, By Mouth, 2 times a day, PRN as needed for anxiety, # 60 tablet, 2 Refills, Maintenance, 12/19/22 8:39:00 EDT, [facility], Partial fill upon patient request if the prescription is for a schedule II opioid drug., 161, lisa, 11/29... Start Date: 12/19/22 Status: Ordered lidocaine 5% topical film 1 patch, Topically, Daily, PRN NEEDED FOR PAIN REMOVE AFTER 12 HOURS, # 30 patch, 1 Refills, Maintenance, 03/20/23 18:05:00 EDT, [facility], 30, 1 patch Topically Daily,PRN: NEEDED FOR PAIN REMOVE AFTER 12 HOURS, 161lisa, 03/20/23 17:26:0... Start Date: 03/20/23 Status: Ordered [...] 10/31/22 16:24:00 EDT, Route to Pharmacy Electronically, [facility]/pharmacy #1972, Partial fill upon patien... Start [...] tablet, 11 Refills, Maintenance, 07/12/22 14:20:00 EST, [facility]/pharmacy #1972, Partial fill [...] 19:11:00 EDT, Aerosol, Route to Pharmacy Electronically, [id number], [facility]/pharmacy #1972, 161... Start Date: 11/24/22 Status: Ordered traMADol 50 mg oral tablet 1 tablet = 50 mg, By Mouth, Every 4 hours, PRN as needed for pain, 0 Refills, Maintenance, 02/17/236:44:00 EST, Tablet, Partial fill upon patient request [...] Refills, Maintenance, 03/22/23 11:50:00 EDT, [facility], 161, cm, 03/20/23 17:26:00 EDT, Height, 85, [...] Confirmed Active OCD Confirmed Active *Joseph Resendez, Heddler, ICP [phone] Confirmed Active 1Jantoinette Streeter [facility] [place] [facility] [place] 2Case Staff Field Engineer Parish Proctor ([facility]); Psychiatrist - [...] Professional Member Role: PCP Address: Address: [address] [place] [address] [place] [address]- [place] Care Team Related Persons Name: GABION CASTANEDA Address: home [address] [place] [address] Name: JERROD BEAUCHAMP Address: [place], [place] Name: BRE MIRANDA Address: home [address] [place] [address] Name: ALEYDA BEE Address: home [address] [place] [address] Name: ALEYDA BEE Address: home [address] [place] [address] Name: ROMIE PUENTES Address: home [address] [place] [address]
--- OUTSIDE RECORDS SUMMARY | 2024-04-05 15:29 | XMS_ITS | Continuity of Care Document ---
Author Organization [facility] Address [address] [place] [address]- Care Team Providers Care Mail Weigher Name Role Phone Mitch Lopez Primary Care Physician [phone] [facility] 07[facility]04[facility]19 - 08/17/19 [facility] [address] [place] [address]- [facility] Attending Physician: Not on Staff, Attending MD [...] Given Patient Refuses 1Admin Note: Administered at [facility] on [facility] in [place]. 2Location History: [facility] pharmacy 3Result Comment: [06/27/2014] PT HAD [facility] 4Admin Note: VIS GIVEN VIS DATE 01/30/2012 [...] Replace Required Details, Route to Pharmacy Electronically, [facility]... Start Date: 08/09/19 Status: Ordered oxyCODONE 5 mg oral tablet See Instructions, PRN, 1 tablet By Mouth Every 6 hours as needed for pain., # 28 tablet, Refills 0,Tot. Refills 0, Maintenance, Pain , Mild, 08/09/19 8:53:00 EST, Instructions Replace Required Details, Route to Pharmacy Electronically, [facility] Pharm... Start Date: 08/09/19 Status: Ordered [...] 07/25/19 14:29:00 EST, Route to Pharmacy Electronically, [id number], [facility]/pharmacy#1972, 158, cm, 07/25/19 13:55:00 EST, Height, [...] Active Chronic migraine(Confirmed) Active OCD(Confirmed) Active 1Jantoinette Streteer [facility] 2Case Computer Assistant Parish Proctor ([facility]); Psychiatrist - [...] BRCA1/2 negative,seen by genetics 6follow up at [facility] GI - Dr Richey. Multiple endoscopies, all normal. Other diagnosis is Non-ulcer dyspepsia Social History Social History Type Response Smoking Status Never smoker entered on: 02/07/14 Sex Female
--- OUTSIDE RECORDS SUMMARY | 2024-04-05 15:29 | XMS_ITS | Continuity of Care Document ---
Author Organization [facility] Address [address] [place] [address]- Care Team Providers Care Progressive Die Maker Name Role Phone Mitch Lopez Primary Care Physician [phone] [facility] 07[facility]22[facility]23 - 09/15/23 [facility] [address] [place], [place] [address] Attending Physician: Not on Staff, Attending MD [...] at [facility] on [facility] in [place]. 2Location History: [facility] pharmacy 3Result Comment: [06/27/2014] PT HAD AT [facility] 4Admin Note: VIS GIVEN VIS DATE 01/30/2012 5Admin Note: flulaval vis given vis date 02/22/2011 6Admin Note: vis given 03/09/10 7Result Comment: Received at [facility] on [facility] 8Admin [...] tablet, 2 Refills, Maintenance, 06/09/23 19:43:00 EST, [facility] STORE 20232, 161, cm, 05/27/23 9:13:00 EDT, Height, 85, kg, 09/16/22 6:46:00 EST, Dry Weight Start Date: 06/09/23 Status: Ordered lidocaine 5% topical film 1 patch, Topically, Daily, PRN NEEDED FOR PAIN REMOVE AFTER 12 HOURS, # 30 patch, 1 Refills, Maintenance, 07/28/23 17:33:00 EST, [facility] STORE 65615, 30, APPLY 1 PATCH TOPICALLY DAILY NEEDED [...] EDT, [facility] STORE 90809, 161, cm, 03/29/23 14:07:00 EDT, Height, 85, [...] tablet, 0 Refills, Maintenance, 07/02/23 8:58:00 EST, [facility]/pharmacy #1972, Partial [...] 10:54:00 EST, Aerosol, Route to Pharmacy Electronically, [id number], [facility]/pharmacy #1972, 161... Start Date: 07/05/23 [...] Confirmed Active OCD Confirmed Active *Joseph Resendez, Cloth Printing Back Tender, [facility] [phone] Confirmed Active 1Jantoinette Streeter [facility] [place] [facility] [place] 2Case Insurance [place] Parish Proctor ([facility]); Psychiatrist - [...] Associate Professional Member Role: PCP Address: Address: [address] [place] [address] [place] [address]- Care Team Related Persons Name: GABINO CASTANEDA Address: home [address] [place] [address] Name: JERROD BEAUCHAMP Address: [place], [place] Name: BRE MIRANDA Address: [address] [place] [address] Name: ALEYDA BEE Address: home [address] [place] [address] Name: ALEYDA BEE Address: home [address] [place] [address] Name: ROMIE PUENTES Address: home [address] [place] [address]
--- OUTSIDE RECORDS SUMMARY | 2024-04-05 15:29 | XMS_ITS | Continuity of Care Document ---
Author Organization [facility] Address [address] [place] [address]- Care Team Providers Care Rec Therapist Name Role Phone Mitch Lopez Primary Care Physician [place] [facility] [place] 04[place]17[place]20 - 04/24/20 [facility] [address] [place] [address]- [facility] Attending Physician: Wu Taylor MD Referring Physician: [...] Administered at [facility] on [facility] in [place]. 2Location History: [facility] pharmacy 3Result Comment: [06/27/2014] PT HAD AT [facility] 4Admin Note: VIS GIVEN VIS DATE 01/30/2012 [...] Gm, 2 Refills, Maintenance, 03/04/20 12:12:00 EDT, [facility]/pharmacy #1972, 160.02, cm, 03/04/20 11:50:00 [...] 03/12/20 7:19:00 EDT, Route to Pharmacy Electronically, [id number], [facility]/pharmacy #1972, 160.02, cm, 03/04/20 11:50:00 [...] DAYS, # 30 capsule, 11 Refills, Maintenance, [facility] STORE 07432, 160.02, cm, 10/11/19 15:24:00 EDT, Height, 85.91, [...] Active *Joseph Resendez, Care Coord inator, ICP [phone](Confirmed) Active 1Jantoinette Streeter [facility] 2Case Peoplesoft Crm Developer Parish Esthela ([facility]); Psychiatrist - Dr [...] oldest [Reference Range]: 1 Height 160.02 cm (04/17/20 2:57 PM) Weight 92.3 kg (04/17/20 2:57 PM) Oxygen Saturation [94-100 %] 97 % (04/17/20 2:57 PM) Pulse Rate [55-90 bpm] 104 bpm *H* (04/17/20 2:57 PM) Body Mass Index [18.5-24.99] 36.05 *>HHI* (04/17/20 2:57 PM) Blood Pressure [90-138/55-84 mm Hg] 121/ 76mm Hg (04/17/20 2:57 PM) Respiratory Rate [16-30 br/min] 16 br/mi n (04/17/20 2:57 PM) Temperature [96.8-100.4 DegF] 96.7 DegF *L* (04/17/20 2:57 PM) Mode of Delivery (Oxygen) Room air (04/17/20 2:57 PM) Blood pressure sites Arm, right (04/17/20 2:57 PM) Temperature Route Temporal (04/17/20 2:57 PM) Dry Weight 92.3 kg (04/17/20 2:57 PM) Weight Obtained Via Standing scale (04/17/20 2:57 PM) Dry Weight Obtained Via Standing scale (04/17/20 2:57 PM) Social History Social History Type Response Smoking Status Never smoker entered on: 02/07/14 Sex Female
--- OUTSIDE RECORDS SUMMARY | 2024-04-05 15:29 | XMS_ITS | Continuity of Care Document ---
Author Organization [facility] Address [address] [place] [address]- Care Team Providers Care Police Chief Deputy Name Role Phone Mitch Lopez Primary Care Physician [facility] Date[facility] 01/[facility]22 - 04/08/[address] [address]- Encounter Diagnosis Pain in left shoulder(Final) - Discharge Disposition: A-D/C Home Attending Physician: Mitch [...] Given Patient Refuses 1Admin Note: Administered at [facility] on [facility] in [place]. 2[facility] 3Result Comment: [06/27/2014] PT HAD AT [facility] 4Admin Note: VIS GIVEN VIS DATE 01/30/2012 5Admin Note: flulaval vis given vis date 02/22/2011 6Admin Note: vis given 03/09/10 7Result Comment: Received at [facility] on [facility] 8Admin Note: [...] FOR PAIN, # 30 tablet, 0 Refills, [facility] STORE 04138, 160, cm, 01/20/22 15:38:00 EDT, Height, 88.2, kg, 11/11/21 9:53:00 EDT, Dry Weight Start Date: 02/07/22 Status: Ordered meloxicam 7.5 mg oral tablet 1 tablet, By Mouth, Daily, PRN NEEDED FOR PAIN WITH FOOD, # 30 tablet, 1 Refills, [facility] STORE 51993, 160, cm, 01/20/22 15:38:00 EDT, Height, 88.2, [...] 01/03/22 11:58:00 EDT, Route to Pharmacy Electronically, [id number], [facility], 160, cm, 01/03/22 11:03:00 EDT, [...] 11:56:00 EDT, Aerosol, Route to Pharmacy Electronically, [id number], [facility], 160... Start Date: 01/03/22 Status: Ordered terazosin 2 mg oral capsule 1, capsule, By Mouth, Daily at bedtime, INSTR:CONTINUE TAKING TILL STONE EXPULSION OR TILL 4 WEEKS AND THEN DISCONTINUE., # 30 capsule, Refills 0, Maintenance, 03/28/22 14:40:00 EDT, Route to Pharmacy Electronically, [facility], 160, cm, 03/15/22... Start Date: 03/28/22 Status: [...] # 30 capsule, 5 Refills, [facility], 160.02, cm, 07/05/21 10:30:00EST, Height, 85, kg, [...] Active *Joseph Resendez, Care Coord inator, ICP [phone](Confirmed) Active 1Jantoinette Streeter [facility] [place] [facility] [place] 2Case Surgical Instrument Maker Parish Proctor ([facility]); Psychiatrist - [...] Care Team Personnel Name: Mitch Lopez Address: [address] [place] [address] [place] [address]-
--- OUTSIDE RECORDS SUMMARY | 2024-04-05 15:29 | XMS_ITS | Continuity of Care Document ---
Author Organization [facility] Address [address] [place] [address]- Care Team Providers Care Mechanic Welder Name Role Phone Mitch Lopez Primary Care Physician [phone] [facility]s): 01/23/24 - 02/22/24 [facility] [address] [facility] [address] [place], [place] [phone] Encounter Diagnosis Chronic back pain(Discharge Diagnosis) - [...] Given 1Admin Note: Administered at [facility] on [facility] in [place]. 2Location History: [facility] 3Result Comment: [06/27/2014] PT HAD AT [facility] 4Admin Note: VIS GIVEN VIS DATE 01/30/2012 5Admin Note: flulaval vis given vis date 02/22/2011 6Admin Note: vis given 03/09/10 7Result Comment: Received at [facility] on [facility] 8Admin Note: VIS given 9Admin Note: [...] tablet, 0 Refills, Maintenance,01/19/24 9:05:00 EDT, [facility] STORE 37473, 161, cm, 01/16/24 16:04:00 EDT, Height, 82.1, [...] Refills, Maintenance, 03/31/23 18:55:00 EDT, [facility] STORE 47179, 161, cm, 03/29/23 14:07:00 EDT, Height, 85, [...] Refills, Maintenance, 02/13/24 9:40:00 EDT, [facility], 161, cm, 01/16/24 16:04:00 EDT, Height, 82.1, [...] Problem List Condition Confirmation Course Effective Dates [facility] Informant Asthma Confirmed 07/05/05 Active Bipolar disorder 1, 2, 3 Confirmed Active Chronic back pain Confirmed 07/05/05 Active Gastric nodule 4 Confirmed Active H/O ovarian cancer 5 Confirmed Active Hiatal hernia Confirmed Active Hysterectomy Confirmed Active Irritable bowel syndrome 6 Confirmed Active Kidney stone Confirmed Active Chronic migraine Confirmed Active OCD Confirmed Active *Joseph Resendez, Graduate Studies Dean, ICP [phone] Confirmed Active 1Jantoinette Streeter [facility] [place] [facility] [place] 2Case Envelope Sealing Machine Operator Parish Proctor ([facility]); Psychiatrist - Dr Konstantin aNrvaez 3admitted at adult partial hospitalization program (adult [...] X-Ray Shoulder, Non- BH Authored Date: * Sadie Lozano: PERFORM Event Display: Radiology Results Scanned Authored Date: MR Knee * Event Display: MRI Knee Authored Date: Patient Care team information Care Team Personnel Name: Mitch Lopez Position: S PCO Associate Professional Member Role: PCP Address: Address: [address] [place] [address] [place] [address]- Care Team Related Persons Name: GABINO CASTANEDA Address: home [address] [place] [address] Name: JERROD BEAUCHAMP Address: [place], [place] Name: RBE MIRANDA Address: home [address] [place] [address] Name: ALEYDA BEE Address: home [address] [place] [address] Name: ALEYDA BEE Address: [address] [place] [address] Name: ROMIE PUENTES Address: home [address] [place] [address]
--- OUTSIDE RECORDS SUMMARY | 2024-04-05 15:29 | XMS_ITS | Continuity of Care Document ---
Author Organization [facility] Address [address] [place] [address]- Care Team Providers Care Plant Operator/Shift Supervisor Name Role Phone Mitch Lopez Primary Care Physician [facility] Date[facility]s): 06/06/23 - 07/06/23 [facility] [address] [place], [place] [address] Allergies, Adverse Reactions, Alerts Substance Reaction [...] 07/18/06 Given 1Admin Note: Administered at [facility] on [facility] in [place]. 2Location History: [facility] pharmacy 3Result Comment: [06/27/2014] PT HAD AT [facility] 4Admin Note: VIS GIVEN VIS DATE 01/30/2012 5Admin Note: flulaval vis given vis date 02/22/2011 6Admin Note: vis given 03/09/10 7Result Comment: Received at [facility] on [facility] 8Admin Note: VIS given [...] drug. Start Date: 09/14/22 Status: Ordered [facility] MELATONIN 3 MG TABLET [facility] MELATONIN 3 MG TABLET, 1, tablet, By Mouth, Daily at bedtime, # 30 tablet, 3 Refills, Maintenance, 03/31/23 18:55:00 EDT, 161, cm, 03/29/23 14:07:00 EDT, Height, 85, kg, 09/16/22 6:46:00 EST, DryWeight Start Date: 03/31/23 Status: Ordered diclofenac 1% topical gel 1 application, Topically, 4 times a day, PRN NEEDED, MODERATE PAIN., # 100 Gm, 3 Refills, Maintenance, 07/06/23 14:28:00 EST, [facility], 25, USE 1 APPLICATION TOPICALLY 4 TIMES A DAY NEEDED MODERATE PAIN, 161, cm, 07/05/23 10:50:00 EST, He... Start Date: 07/06/23 Status: Ordered hydrOXYzine hydrochloride 25 mg oral tablet 1 tablet, By Mouth, 2 times a day, PRN NEEDED FOR ANXIETY, # 60 tablet, 2 Refills, Maintenance, 06/09/23 19:43:00 EST, [facility], 161, cm, 05/27/23 9:13:00 EDT, Height, 85, kg, 09/16/22 6:46:00 EST, Dry Weight Start Date: 06/09/23 Status: Ordered lidocaine 5% topical film 1 patch, Topically, Daily, PRN NEEDED FOR PAIN REMOVE AFTER 12 HOURS, # 30 patch, 1 Refills, Maintenance, 03/29/23 15:10:00 EDT, [facility]/pharmacy #1972, 30, 1 patch Topically Daily,PRN: NEEDED FOR PAIN REMOVE AFTER 12 HOURS, 161, cm, 03/29/23 14:07:0... Start Date: 03/29/23 Status: Ordered Mapap Arthritis Pain 650 mg oral tablet, extended release 2 tablet = 1,300 mg, By Mouth, Every 8 hours, PRN as needed for pain, # 100 tablet, 1 Refills, Maintenance, 03/30/23 21:21:00 EDT, ER Tablet, [facility]/pharmacy #1972, Partial fill [...] 0 Refills, Maintenance, 03/31/23 18:55:00 EDT, [facility] STORE 47298, 161, cm, 03/29/23 14:07:00 EDT, Height, 85, [...] 10:54:00 EST, Aerosol, Route to Pharmacy Electronically, [id number], [facility], 161... Start Date: 07/05/23 Status: [...] capsule, 1 Refills, Maintenance, 03/22/23 11:50:00 EDT, [facility] STORE 33458, 161, cm, 03/20/23 17:26:00 EDT, Height, 85, [...] Confirmed Active OCD Confirmed Active *Joseph Resendez, Machine Washer, ICP [phone] Confirmed Active 1Jantoinette Streeter [facility] 2Case Enameler [place] Proctor ([facility]); Psychiatrist [...] Professional Member Role: PCP Address: Address: [address] [place] [address] [place] [address]- Care Team Related Persons Name: GABINO CASTANEDA Address: home [address] [place] [address] Name: JERROD BEAUCHAMP Address: [place], [place] Name: BRE MIRANDA Address: [address] [place] [address] Name: ALEYDA BEE Address: [address] [place] [address] Name: ALEYDA BEE Address: home [address] [place] [address] Name: ROMIE PUENTES Address: home [address] [place] [address]
--- OUTSIDE RECORDS SUMMARY | 2024-04-05 15:29 | XMS_ITS | Continuity of Care Document ---
Author Organization [facility] Address [address] [place] [address]- Care Team Providers Care Roving Frame Tender Name Role Phone Mitch Lopez Primary Care Physician [place] [facility] [place] 07/24/20 - 07/24/[address] [address]- Discharge Disposition: A-D/C Home Attending Physician: Zahra Quigley MD Admitting Physician: Zahra Quigley MD Referring Physician: Not on Staff, Referring [...] Patient Refuses 1Result Comment: Received at [facility] on [address] 2Admin Note: VIS given 3Admin Note: Administered at [facility] on [facility] in [place]. 4[facility] 5Result Comment: [06/27/2014] PT HAD AT [facility] 6Admin Note: VIS GIVEN VIS [...] 07/28/20 17:36:00 EST, 07/21/20 17:36:00 EST, Tablet, [facility]/pharmacy #1972, Partial fill [...] 07/26/20 14:19:00 EST, 07/21/20 14:19:00 EST, Tablet, [facility]/pharmacy #1972, Partial fill [...] 07/15/20 20:01:00 EST, Route to Pharmacy Electronically, [facility]/pharmacy [...] 05/19/20 16:20:00 EDT, Route to Pharmacy Electronically, [id number], [facility]/pharmacy#1972, 160.02, cm, 04/28/20 13:40:00 EDT, Height, 9... Start Date: 05/19/20 Stop Date: 11/15/20 Status: Ordered ProAir HFA 90 mcg/inh inhalation aerosol with adapter 2, puffs, Inhalation, Every 6 hours, PRN, # 1 each, Refills 5, Tot. Refills 5, Maintenance, 06/16/20 18:28:00 EST, Route to Pharmacy Electronically, [id number], [facility]/pharmacy#1972, 160.02, cm, 05/27/20 13:10:00 EDT, Height, 9... [...] 08/04/20 14:18:00 EST, 07/21/20 14:18:00 EST, Tablet, [facility], Partial fill upon patient request if the prescription is for a schedule... Start Date: 07/21/20 Stop Date: 08/04/20 Status: Ordered verapamil 100 mg oral capsule, extended release See Instructions, 1 CAPSULE BY MOUTH DAILY AT BEDTIME,X90 DAYS, # 30 capsule, 11 Refills, Maintenance, [facility], 160.02, cm, 10/11/19 15:24:00 EDT, Height, 85.91, [...] Active *Joseph Resendez, Care Coord inator, ICP [phone](Confirmed) Active 1Jantoinette Streeter [facility] [place] 2Case Poultry Grader Parish Proctor ([facility]); Psychiatrist [...] to oldest [Reference Range]: 1 2 3 Weight 92.3 kg (07/24/20 1:24 PM) 92.3 kg (07/24/20 10:19 AM) 92.3 kg (07/24/20 9:31 AM) Oxygen Saturation [94-100 %] 97 % (07/24/20 1:24 PM) 100 % (07/24/20 10:19 AM) 95 % (07/24/20:31 AM) Pulse Rate [55-90 bpm] 75 bpm (07/24/20 1:24 PM) 94 bpm *H* (07/24/20 10:19 AM) 89 bpm (07/24/20 9:31 AM) Blood Pressure [90-138/55-84 mm Hg] 147/96mm Hg *H* (07/24/20 1:24 PM) 152/97mm Hg *H* (07/24/20 10:19 AM) 141/90mm Hg *H* (07/24/20 9:31 AM) Respiratory Rate [16-30 br/min] 18 br/min (07/24/20 1:24 PM) 18 br/min (07/24/20 10:19 AM) 17 br/min (07/24/20 9:31 AM) Temperature [96.8-100.4 DegF] 97.7 DegF (07/24/20 1:24 PM) 98.2 DegF (07/24/20:31 AM) Mode of Delivery (Oxygen) Room air (07/24/20 1:24 PM) Room air (07/24/20 10:19 AM) Room air (07/24/20 9:31 AM) Blood pressure sites Arm, left (07/24/20 1:24 PM) Arm, left (07/24/20 10:19 AM) Arm, right (07/24/20:31 AM) Temperature Route Oral (07/24/20 1:24 PM) Oral (07/24/20 9:31 AM) Dry Weight 92.3 kg (07/24/20 1:24 PM) 92.3 kg (07/24/20 10:19 AM) 92.3 kg (07/24/20 9:31 AM) Weight Obtained Via Standing scale (07/24/20 9:31 AM) Dry Weight Obtained Via Standing scale (07/24/20 9:31 AM) Social History Social History Type Response Smoking Status Never smoker entered on: 02/07/14 Sex Female
--- OUTSIDE RECORDS SUMMARY | 2024-04-05 15:30 | XMS_ITS | Continuity of Care Document ---
Author Organization [facility] Address [address] [place] [address]- Care Team Providers Care Operative Supervisor Name Role Phone Mitch Lopez Primary Care Physician [facility] 11[facility]21 - 12/08/21 [facility] [address] [place] [address]- Allergies, Adverse Reactions, Alerts Substance Reaction Severity [...] 1Result Comment: Received at [facility] on [facility] [address] 2Admin Note: VIS given 3Admin Note: Administered at [facility] on [address] in [place]. 4Location History: [facility] pharmacy 5Result Comment: [06/27/2014] PT HAD [...] 11/22/21 11:19:00 EDT, Route to Pharmacy Electronically, [facility]/pharmacy #1972, Partial fill upon patient [...] 0 Refills, Maintenance, 12/07/21 15:30:00 EDT, Capsule, [facility]/pharmacy #1972, Partial fill upon patient [...] a day, # 120 tablet, 2 Refills, [facility] 42927, 160, cm, 11/22/21 10:23:00 EDT, Height, 88.2, [...] 09/07/21 11:12:00 EST, Route to Pharmacy Electronically, [id number], [facility]/pharmacy #1972, 160.02, cm, 09/07/21 10:18:00 [...] 17:59:00 EST, Aerosol, Route to Pharmacy Electronically, [id number], [facility]/pharmacy #1972, 160... Start Date: 09/08/21 Status: [...] # 30 capsule, 5 Refills, [facility], 160.02, cm, 07/05/21 10:30:00EST, Height, 85, kg, [...] Active *Joseph Resendez, Care Coord inator, ICP [phone](Confirmed) Active 1Jantoinette Streeter [facility] [place] [facility] [place] 2Case Sewer System Supervisor Parish Proctor ([facility]); [...] BRCA1/2 negative,seen by genetics 6follow up at [facility] GI - Dr Richey. Multiple endoscopies, all normal. Other diagnosis is Non-ulcer dyspepsia Social History Social History Type Response Smoking Status Never smoker entered on: 02/07/14 Sex Female
--- OUTSIDE RECORDS SUMMARY | 2024-04-05 15:30 | XMS_ITS | Continuity of Care Document ---
Author Organization [facility] Address [address] [place] [address]- Care Team Providers Care Cylinder Inspector And Tester Name Role Phone Mitch Lopez Primary Care Physician [facility] 05[facility]21 - 06/02/21 [facility] [address] [place] [address]- Allergies, Adverse Reactions, Alerts Substance Reaction Severity [...] Comment: Received at [facility] on [facility] [address] 2Admin Note: VIS given 3Admin Note: Administered at [facility] on [facility] [address] in [place]. 4Location History: [facility] pharmacy [...] 05/19/20 16:20:00 EDT, Route to Pharmacy Electronically, [id number], [facility]/pharmacy#1972, 160.02, cm, 04/28/20 13:40:00 EDT, Height, 9... Start Date: 05/19/20 Stop Date: 11/15/20 Status: Ordered ProAir HFA 90 mcg/inh inhalation aerosol with adapter 2, puffs, Inhalation, Every 6 hours, PRN, # 1 each, Refills 5, Tot. Refills 5, Maintenance, 06/16/20 18:28:00 EST, Route to Pharmacy Electronically, [id number], [facility]/pharmacy#1972, 160.02, cm, 05/27/20 13:10:00 EDT, [...] Refills, Maintenance, 02/04/21 9:28:00 EDT, [facility], 160.02, cm, 01/26/21 9:12:00 EDT, Height, 88.8, [...] Active *Joseph Resendez, Care Coord inator, ICP [phone](Confirmed) Active Dyan Streeter [facility] [facility] 2Case Student Finance Specialist Parish Proctor ([facility]); Psychiatrist [...]
--- OUTSIDE RECORDS SUMMARY | 2024-04-05 15:30 | XMS_ITS | Continuity of Care Document ---
Author Organization [facility] Address [address] [place] [address]- Care Team Providers Care Physical Metallurgist Name Role Phone Mitch oLpez Primary Care Physician [facility] 11/16/22 - 12/16/22 [facility] [address] [place] [address]- Allergies, Adverse Reactions, Alerts Substance Reaction Severity [...] Given Patient Refuses 1Admin Note: Administered at [facility] on [facility] in [place]. 2Location History: [facility] 3Result Comment: [06/27/2014] PT HAD AT [facility] 4Admin Note: VIS GIVEN VIS DATE 01/30/2012 5Admin Note: flulaval vis given vis date 02/22/2011 6Admin Note: vis given 03/09/10 7Result Comment: Received at [facility] on [facility] 8Admin Note: VIS given 9Admin Note: [...] patch, 1 Refills, Maintenance, 07/07/22 18:54:00 EST, [facility] STORE 27707, 30, APPLY 1 PATCH TOPICALLY DAILY NEEDED [...] 10/31/22 16:24:00 EDT, Route to Pharmacy Electronically, [facility]/pharmacy #1972, Partial fill upon patien... Start [...] 19:11:00 EDT, Aerosol, Route to Pharmacy Electronically, [id number], [facility], 161... Start Date: 11/24/22 Status: [...] Confirmed Active OCD Confirmed Active *Joseph Resendez, Mechanical Product Design Engineer, ICP [phone] Confirmed Active 1Jantoinette Streeter [facility] [place] 2Case Experimental Physicist Parish Proctor ([facility]); [...] Care Team Personnel Name: Mitch Lopez Position: [facility] PCO Associate Professional Member Role: PCP Address: Address: [address] [place] [address] [place] [address]- Care Team Related Persons Name: GABINO CASTANEDA Address: home [address] [place] [address] Name: JERROD BEAUCHAMP Address: [place], [place] Name: BRE MIRANDA Address: [address] [place] [address] Name: ALEYDA BEE Address: home [address] [place] [address] Name: ALEYDA BEE Address: [address] [place] [address] Name: ROMIE PUENTES Address: home [address] [place] [address]
--- OUTSIDE RECORDS SUMMARY | 2024-04-05 15:30 | XMS_ITS | Continuity of Care Document ---
Author Organization [facility] Adult [facility] Address [address] [place] [address]- Care Team Providers Care Generator Technician Name Role Phone Mitch Lopez Primary Care Physician [facility]): [facility]20 - 11/20/20 [facility] [address] [place] [address]- Encounter Diagnosis Chronic back pain(Discharge Diagnosis) - [...] Received at [facility] on [address] 2Admin Note: VIS given 3Admin Note: Administered at [facility] on [facility] in [place]. 4Location History: [facility] pharmacy 5Result Comment: [06/27/2014] [...] Gm, 0 Refills, Maintenance, 08/08/20 15:21:00 EST, [place], [facility]/pharmacy #1972, Partial fill [...] tablet, 2 Refills, Maintenance, 11/06/20 17:02:00 EDT, [facility]/pharmacy #1972, Partial fill upon patient request if the prescription is for a schedule II opioid drug.... Start Date: 11/06/20 Status: Ordered ibuprofen 600 mg oral tablet 600 mg, 1, tablet, By Mouth, 4 times a day, PRN, # 40 tablet, Refills 0, Tot. Refills 0, Maintenance, for pain, 07/15/20 20:01:00 EST, Route to Pharmacy Electronically, [facility]/pharmacy #1972, Partial fill upon patient request if the prescription is for a... Start Date: 07/15/20 Status: Ordered melatonin 3 mg oral tablet 1 tablet = 3 mg, By Mouth, Daily at bedtime, # 30 tablet, 2 Refills, Maintenance, 10/07/20 9:05:00 EST, [facility]/pharmacy #1972, Partial [...] 05/19/20 16:20:00 EDT, Route to Pharmacy Electronically, [id number], [facility]/pharmacy#1972, 160.02, cm, 04/28/20 13:40:00 EDT, Height, 9... Start Date: 05/19/20 Stop Date: 11/15/20 Status: Ordered ProAir HFA 90 mcg/inh inhalation aerosol with adapter 2, puffs, Inhalation, Every 6 hours, PRN, # 1 each, Refills 5, Tot. Refills 5, Maintenance, 06/16/20 18:28:00 EST, Route to Pharmacy Electronically, [id number], [facility]/pharmacy#1972, 160.02, cm, 05/27/20 13:10:00 [...] *Joseph Resendez, Care Coord [facility], [facility] [phone](Confirmed) Active Dyan Streeter [facility] [place] 2Case Control Equipment Electrician Parish Proctor ([facility]); Psychiatrist - Dr Konstantin Narvaez 3admitted at adult partial hospitalization program (adult intensive short term out-pt psychiatric program). 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 BRCA1/2 negative,seen by genetics 6follow up at [facility] - Dr Richey. Multiple endoscopies, all normal. Other diagnosis is Non-ulcer dyspepsia Diagnosis Diagnosis Type Effective Dates Health Status Cl inical Service Informant Chronic back pain Discharge Diagnosis 06/22/19 Social History Social History Type Response Smoking Status Never smoker entered on: 02/07/14 Sex Female
--- OUTSIDE RECORDS SUMMARY | 2024-04-05 15:30 | XMS_ITS | Continuity of Care Document ---
Author Organization [facility] Adult [facility] Address [address] [place] [address]- Care Team Providers Care Lapeler Name Role Phone Mitch Lopez Primary Care Physician [phone] [facility]counter [facility] 07/28/20 - 08/27/20 [facility] [address] [place], [place] [address] Allergies, Adverse Reactions, Alerts Substance Reaction [...] [facility] on [address] in [place]. 4Location History: [facility] pharmacy 5Result Comment: [06/27/2014] PT HAD AT [facility] 6Admin Note: VIS GIVEN VIS [...] Gm, 0 Refills, Maintenance, 08/08/20 15:21:00 EST, [place], [facility]/pharmacy #1972, Partial fill upon [...] 05/19/20 16:20:00 EDT, Route to Pharmacy Electronically, [id number], [facility]/pharmacy#1972, 160.02, cm, 04/28/20 13:40:00 EDT, Height, 9... Start Date: 05/19/20 Stop Date: 11/15/20 Status: Ordered ProAir HFA 90 mcg/inh inhalation aerosol with adapter 2, puffs, Inhalation, Every 6 hours, PRN, # 1 each, Refills 5, Tot. Refills 5, Maintenance, 06/16/20 18:28:00 EST, Route to Pharmacy Electronically, [id number], [facility]/pharmacy#1972, 160.02, cm, 05/27/20 13:10:00 [...] 30 capsule, 11 Refills, Maintenance, [facility], 160.02, cm, 10/11/19 15:24:00 EDT, Height, 85.91, [...] Active *Joseph Resendez, Care Coord inator, ICP [phone](Confirmed) Active Dyan Streeter [facility] [place] 2Case Seismographer Parish Proctor ([facility]); Psychiatrist [...] BRCA1/2 negative,seen by genetics 6follow up at [facility] GI - Dr Richey. Multiple endoscopies, all normal. Other diagnosis is Non-ulcer dyspepsia Social History Social History Type Response Smoking Status Never smoker entered on: 02/07/14 Sex Female
--- OUTSIDE RECORDS SUMMARY | 2024-04-05 15:30 | XMS_ITS | Continuity of Care Document ---
Author Organization [facility]3] Adult Medicine Address [address] [place] [address]- Care Team Providers Care Orchestra Director Name Role Phone Mitch Lopez Primary Care Physician [facility]): 05/05/22 - 06/15/22 [facility] Adult Medicine [address] [place] [address]- Attending Physician: Not on Staff, Attending MD [...] Darren rded influenza virus vaccine, inactivated 04/02/20 Draren rded influenza virus vaccine, inactivated 04/17/19 Darren [...] Refuses 1Admin Note: Administered at [facility] on [facility] in [place]. 2Location History: [facility] pharmacy 3Result Comment: [06/27/2014] PT HAD AT [facility] 4Admin Note: VIS GIVEN VIS DATE 01/30/2012 5Admin Note: flulaval vis given vis date 02/22/2011 6Admin Note: vis given 03/09/10 7Result Comment: Received at [facility] on [facility] [...] Refills, Maintenance, 04/15/22 16:54:00 EDT, [facility] [...] tablet, 0 Refills, Maintenance, 05/12/22 13:13:00 EDT, [facility] STORE 66256, 160, cm, 05/04/22 16:09:00 EDT, Height, 88.2, [...] 10:22:00 EST, Aerosol, Route to Pharmacy Electronically, [id number], [facility]/pharmacy #1972, 160... Start Date: 06/07/22 Status: Ordered terazosin 2 mg oral capsule 1, capsule, By Mouth, Daily at bedtime, INSTR:CONTINUE TAKING TILL STONE EXPULSION OR TILL 4 WEEKS AND THEN DISCONTINUE., # 30 capsule, Refills 0, Maintenance, 03/28/22 14:40:00 EDT, Route to Pharmacy Electronically, [facility] STORE 03995, 160, cm, 03/15/22... Start Date: 03/28/22 Status: [...] # 30 capsule, 5 Refills, [facility], 160.02, cm, 07/05/21 10:30:00EST, Height, 85, kg, [...] Confirmed Active OCD Confirmed Active *Joseph Resendez, Square Shear Operator, ICP [phone] Confirmed Active 1Jantoinette Streeter [facility] [place] [facility] [place] 2Case Frozen Foods Manager Parish Proctor ([facility]); Psychiatrist - Dr Konstantin Narvaez 3admitted at [...] Associate Professional Member Role: PCP Address: Address: [address] [place] [address] [place] [address]- [place] Care Team Related Persons Name: GABINO CASTANEDA Address: home [address] [place] [address] Name: BRE MIRANDA Address: home [address] [place] [address] Name: ALEYDA BEE Address: home [address] [place] [address] Name: ALEYDA BEE Address: home [address] [place] [address] Name: ROMIE PUENTES Address: home [address] [place] [address]
--- OUTSIDE RECORDS SUMMARY | 2024-04-05 15:30 | XMS_ITS | Continuity of Care Document ---
Author Organization [facility] Adult [facility] Address [address] [place] [address]- Care Team Providers Care Multilith Operator Name Role Phone Mitch Lopez Primary Care Physician Encounter [facility] Date([facility]): 06/07/23 - 07/07/23 [facility] [address] [place], [place] [address] Allergies, Adverse Reactions, Alerts Substance Reaction Severity [...] influenza virus vaccine, inactivated 6 07/08/10 Gi mkiaela SARS-CoV-2 (COVID-19) mRNA-1273 vaccine 08/11/21 R ecorded [...] Note: Administered at [facility] on [facility] in [place]. 2Location History: [facility] pharmacy 3Result Comment: [06/27/2014] PT HAD AT [facility] 4Admin Note: VIS GIVEN VIS DATE 01/30/2012 5Admin Note: flulaval vis given vis date 02/22/2011 6Admin Note: vis given 03/09/10 7Result Comment: Received at [facility] on [facility] 8Admin Note: [...] opioid drug. Start Date: 09/14/22 Status: Ordered [facility] MELATONIN 3 MG TABLET [facility] MELATONIN 3 MG TABLET, 1, tablet, [...] Refills, Maintenance, 07/06/23 14:28:00 EST, [facility], 25, USE 1 APPLICATION TOPICALLY 4 TIMES A DAY NEEDED MODERATE PAIN, 161, cm, 07/05/23 10:50:00 EST, He... Start Date: 07/06/23 Status: Ordered hydrOXYzine hydrochloride 25 mg oral tablet 1 tablet, By Mouth, 2 times a day, PRN NEEDED FOR ANXIETY, # 60 tablet, 2 Refills, Maintenance, 06/09/23 19:43:00 EST, [facility], 161, cm, 05/27/23 9:13:00 EDT, Height, 85, kg, 09/16/22 6:46:00 EST, Dry Weight Start Date: 06/09/23 Status: Ordered lidocaine 5% topical film 1 patch, Topically, Daily, PRN NEEDED FOR PAIN REMOVE AFTER 12 HOURS, # 30 patch, 1 Refills, Maintenance, 03/29/23 15:10:00 EDT, [facility]/pharmacy #1972, 30, 1 patch Topically Daily,PRN: NEEDED FOR PAIN REMOVE AFTER 12 HOURS, 161, cm, 03/29/23 14:07:0... Start Date: 03/29/23 Status: Ordered Mapap Arthritis Pain 650 mg oral tablet, extended release 2 tablet = 1,300 mg, By Mouth, Every 8 hours, PRN as needed for pain, # 100 tablet, 1 Refills, Maintenance, 03/30/23 21:21:00 EDT, ER Tablet, [facility]/pharmacy #1972, Partial fill upon [...] tablet, 0 Refills, Maintenance, 03/31/23 18:55:00 EDT, [facility] STORE 86910, 161, cm, 03/29/23 14:07:00 EDT, Height, 85, [...] 10:54:00 EST, Aerosol, Route to Pharmacy Electronically, [id number], [facility], 161... Start Date: 07/05/23 Status: [...] capsule, 1 Refills, Maintenance, 03/22/23 11:50:00 EDT, [facility] STORE 22946, 161, cm, 03/20/23 17:26:00 EDT, Height, 85, [...] Confirmed Active OCD Confirmed Active *Joseph Resendez, Catch Basin Cleaner, ICP [phone] Confirmed Active 1Jantoinette Streeter [facility] 2Case Counselor Manager Parish Proctor ([facility]); Psychiatrist [...] Associate Professional Member Role: PCP Address: Address: [address] [place] [address] [place] [address]- Care Team Related Persons Name: GABINO CASTANEDA Address: [address] [place] [address] Name: JERROD BEAUCHAMP Address: [place], [place] Name: BRE MIRANDA Address: [address] [place] [address] Name: ALEYDA BEE Address: [address] [place] [address] Name: ALEYDA BEE Address: home [address] [place] [address] Name: ROMIE PUENTES Address: home [address] [place] [address]
--- OUTSIDE RECORDS SUMMARY | 2024-04-05 15:30 | XMS_ITS | Continuity of Care Document ---
Author Organization [facility] Adult [facility] Address [address] [place] [address]- Care Team Providers Care Import/Export Administrator Name Role Phone Mitch Lopez Primary Care Physician [phone] [facility]counter [facility] Date(s): 10/23/23 - 11/22/23 [facility] [address] [facility] [address] [place], [place] [phone] Allergies, Adverse Reactions, Alerts Substance Reaction Severity [...] Administered at [facility] on [facility] in [place]. 2Location History: [facility] 3Result Comment: [06/27/2014] PT HAD AT [facility] 4Admin Note: VIS GIVEN VIS DATE 01/30/2012 5Admin Note: flulaval vis given vis date 02/22/2011 6Admin Note: vis given 03/09/10 7Result Comment: Received at [facility] on [facility] 8Admin Note: VIS given 9Admin [...] tablet, 2 Refills, Maintenance, 10/17/23 11:01:00 EDT, [facility] STORE 24932, 161, cm, 09/29/23 11:18:00 EST, Height, 82.1, [...] 10/31/22 16:24:00 EDT, Route to Pharmacy Electronically, [facility]/pharmacy #1972, Partial fill upon patien... Start Date: 10/31/22 Status: Ordered nabumetone 500 mg oral tablet 1 tablet, By Mouth, 2 times a day, TAKE WITH FOOD., # 60 tablet, 0 Refills, Maintenance, 03/31/23 18:55:00 EDT, [facility] STORE 81775, 161, cm, 03/29/23 14:07:00 EDT, Height, 85, [...] Active OCD Confirmed Active *Joseph Resendez, Director Hydrogen Storage Engineering, ICP [phone] Confirmed Active 1Jantoinette Streeter [facility] [place] 2Case Specialty Food Products Supervisor Parish Proctor ([facility]); [...] Professional Member Role: PCP Address: Address: [address] [place] [address] [place] [address]- Care Team Related Persons Name: GABINO CASTANEDA Address: home [address] [place] [address] Name: JERROD BEAUCHAMP Address: [place], [place] Name: BRE MIRANDA Address: [address] [place] [address] Name: ALEYDA BEE Address: [address] [place] [address] Name: ALEYDA BEE Address: [address] [place] [address] Name: ROMIE PUENTES Address: [address] [place] [address]
--- OUTSIDE RECORDS SUMMARY | 2024-04-05 15:30 | XMS_ITS | Continuity of Care Document ---
Author Organization [facility] Adult Medicine Address [address] [place] [address]- Care Team Providers Care Cemetery Keeper Name Role Phone Mitch Lopez Primary Care Physician Encounter [facility] Date(s): 02/17/21 - 03/19/21 [facility] Adult [facility] [address] [place], [place] [address] Allergies, Adverse Reactions, [...] Given Patient Refuses 1Result Comment: Received at [facility] on [address] 2Admin Note: VIS given 3Admin Note: Administered at [facility] on [address] in [place]. 4Location History: [facility] pharmacy 5Result Comment: [06/27/2014] PT HAD AT [facility] 6Admin Note: VIS GIVEN VIS [...] 0 Refills, Maintenance, 12/04/20 17:24:00 EDT, Tablet, [facility]/pharmacy #1972, Partial fill upon patient request if the prescription is for a schedule II opioid drug., 160.02, cm, 12/04/20 17:05:00 EDT, [place]... Start Date: 12/04/20 Status: Ordered Colace sodium 100 mg oral capsule 100 mg, 1, capsule, By Mouth, 2 times a day, PRN, # 20 capsule, Refills 0, Tot. Refills 0, Maintenance, for constipation, 02/07/21 10:55:00 EDT, Route to Pharmacy Electronically, [facility]/pharmacy #1972, Partial fill upon patient request [...] 0 Refills, Maintenance, 02/07/21 10:54:00 EDT, Gel, [facility]/pharmacy #1972, Partial fill upon patient request [...] Gm, 0 Refills, Maintenance, 08/08/20 15:21:00 EST, [place], Partial fill upon patient request [...] tablet, 2 Refills, Maintenance, 10/07/20 9:05:00 EST, [facility]/pharmacy #1972, Partial fill upon patient request if the prescription is for a schedule II opioid drug., 160.02, cm, 10/07/20 8:15:00 EST, [place]... Start Date: 10/07/20 Status: Ordered naproxen 500 mg oral tablet 1 tablet = 500 mg, By Mouth, 2 times a day, # 28 tablet, 0 Refills, Maintenance, 03/08/21 18:54:00 EDT, Tablet, [facility]/pharmacy #1972, Partial fill upon patient request [...] 05/19/20 16:20:00 EDT, Route to Pharmacy Electronically, [id number], [facility]/pharmacy#1972, 160.02, cm, 04/28/20 13:40:00 EDT, Height, 9... Start Date: 05/19/20 Stop Date: 11/15/20 Status: Ordered ProAir HFA 90 mcg/inh inhalation aerosol with adapter 2, puffs, Inhalation, Every 6 hours, PRN, # 1 each, Refills 5, Tot. Refills 5, Maintenance, 06/16/20 18:28:00 EST, Route to Pharmacy Electronically, [id number], [facility]/pharmacy#1972, 160.02, cm, 05/27/20 13:10:00 EDT, Height, [...] 1 Refills, Soft Stop, 10/07/20 9:06:00 EST, [facility]/pharmacy #1972, Partial fill upon patient request if the prescription is for a schedule II opioid drug., 160.... Start Date: 10/07/20 Status: Ordered verapamil 180 mg oral capsule, extended release 1 capsule, By Mouth, Daily, # 30 capsule, 5 Refills, Maintenance, 02/04/21 9:28:00 EDT, [facility], 160.02, cm, 01/26/21 9:12:00 EDT, Height, 88.8, [...] Active *Lukisha Mal, Care Coord avril, ICP [phone](Confirmed) Active 1Jantoinette Streeter [facility] [place] 2Case Credit Historian Parish Proctor ([facility]); Psychiatrist - Dr Konstantin Narvaez 3admitted at adult partial hospitalization program (adult intensive short term out-pt psychiatric program). 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 BRCA1/2 negative,seen by genetics 6follow up at [facility] GI - Dr Richey. Multiple endoscopies, all normal. Other diagnosis is Non-ulcer dyspepsia Social History Social History Type Response Smoking Status Never smoker entered on: 02/07/14 Sex Female
--- OUTSIDE RECORDS SUMMARY | 2024-04-05 15:30 | XMS_ITS | Continuity of Care Document ---
Author Organization [facility] Adult Medicine Address [address] [place] [address]- Care Team Providers Care Seed Cone Picker Name Role Phone Mitch Lopez Primary Care Physician Encounter [facility] Date(s): 07/05/22 - 08/04/22 [facility] Adult [facility] [address] [place], [place] [address] Allergies, Adverse Reactions, Alerts [...] Given Patient Refuses 1Admin Note: Administered at [facility] on [facility] in [place]. 2Location History: [facility] pharmacy 3Result Comment: [06/27/2014] PT HAD AT [facility] 4Admin Note: VIS GIVEN VIS DATE 01/30/2012 5Admin Note: flulaval vis given vis date 02/22/2011 6Admin Note: vis given 03/09/10 7Result Comment: Received at [facility] on [facility] 8Admin Note: VIS [...] tablet, 0 Refills, Maintenance, 04/15/22 16:54:00 EDT, [facility]/pharmacy #1972, Partial [...] patch, 1 Refills, Maintenance, 07/07/22 18:54:00 EST, [facility] STORE 25514, 30, APPLY 1 PATCH TOPICALLY DAILY NEEDED [...] tablet, 0 Refills, Maintenance, 06/19/22 12:17:00 EST, [facility] STORE 03347, 160, cm, 06/07/22 9:36:00 EST, Height, 88.2, [...] 10:22:00 EST, Aerosol, Route to Pharmacy Electronically, [id number], [facility]/pharmacy #1972, 160... Start Date: 06/07/22 Status: Ordered terazosin 2 mg oral capsule 1, capsule, By Mouth, Daily at bedtime, INSTR:CONTINUE TAKING TILL STONE EXPULSION OR TILL 4 WEEKS AND THEN DISCONTINUE., # 30 capsule, Refills 0, Maintenance, 03/28/22 14:40:00 EDT, Route to Pharmacy Electronically, [facility] STORE 60324, 160, cm, 03/15/22... Start Date: 03/28/22 Status: [...] Refills, Maintenance, 06/16/22 9:46:00 EST, [facility], 160, cm, 06/07/22 9:36:00 EST, Height, 88.2, [...] Confirmed Active OCD Confirmed Active *Joseph Resendez, Bobtail Driver, ICP [phone] Confirmed Active 1Jantoinette Streeter [facility] [place] [facility] [place] 2Case Ring Maker Parish Proctor ([facility]); [...] Care Team Personnel Name: Mitch Lopez Position: [facility] PCO Associate Professional Member Role: PCP Address: Address: [address] [place] [address] [place] [address]- [place] Care Team Related Persons Name: GABINO CASTANEDA Address: [address] [place] [address] Name: BRE MIRANDA Address: [address] [place] [address] Name: ALEYDA BEE Address: [address] [place] [address] Name: ALEYDA BEE Address: home [address] [place] [address] Name: ROMIE PUENTES Address: home [address] [place] [address]
--- OUTSIDE RECORDS SUMMARY | 2024-04-05 15:30 | XMS_ITS | Continuity of Care Document ---
Author Organization [facility] ter Address [address] [place] [address]- Care Team Providers Care Online Marketer Name Role Phone Mitch Lopez Primary Care Physician [facility]counter [facility] 10[facility]31/22 - 12/18/22 [facility] [address] [place] [address] Attending Physician: Joana Mojica NP Admitting Physician: Galina GARCIA, Joana Referring Physician: Joana Mojica NP Allergies, Adverse Reactions, Alerts Substance Reaction Severity [...] Administered at [facility] on [facility] in [place]. 2Location History: [facility] pharmacy 3Result Comment: [06/27/2014] PT HAD AT [facility] 4Admin Note: VIS GIVEN VIS DATE 01/30/2012 5Admin Note: flulaval vis given vis date 02/22/2011 6Admin Note: vis given 03/09/10 7Result Comment: Received at [facility] on [facility] 8Admin [...] Refills, Maintenance, 07/07/22 18:54:00 EST, [facility] STORE 36759, 30, APPLY 1 PATCH TOPICALLY DAILY NEEDED [...] 19:11:00 EDT, Aerosol, Route to Pharmacy Electronically, [id number], [facility], 161... Start Date: 11/24/22 Status: [...] Active OCD Confirmed Active *Joseph Resendez, Configuration Management Consultant, ICP [phone] Confirmed Active 1Jantoinette Streeter [facility] [place] [facility] [place] 2Case Shipping & Receiving Lead Parish Proctor ([facility]); Psychiatrist - [...] Professional Member Role: PCP Address: Address: [address] [place] [address] [place] [address]- Care Team Related Persons Name: GABINO CASTANEDA Address: home [address] [place] [address] Name: JERROD BEAUCHAMP Address: [place], [place] Name: BRE MIRANDA Address: home [address] [place] [address] Name: ALEYDA BEE Address: [address] [address] Name: ALEYDA BEE Address: home [address] [place] [address] Name: ROMIE PUENTES Address: home [address] [place] [address]
--- OUTSIDE RECORDS SUMMARY | 2024-04-05 15:30 | XMS_ITS | Continuity of Care Document ---
Author Organization [facility] ter Address [address] [place] [address]- Care Team Providers Care Weaver Hand Loom Name Role Phone Mitch Lopez Primary Care Physician [phone] [facility] - 11/11/[address] [address]- Discharge Disposition: A-D/C Walkout Attending Physician: Not on Staff, Attending MD Admitting Physician: Not on Staff, Admitting MD Referring Physician: Not on Staff, Referring [...] Given Patient Refuses 1Result Comment: Received at [facility] on [address] 2Admin Note: VIS given 3Admin Note: Administered at [facility] on [address] in [place]. 4Location History: [facility] pharmacy 5Result Comment: [06/27/2014] [...] 10/14/21 18:29:00 EDT, Route to Pharmacy Electronically, [facility]/pharmacy #1972, Partial fill upon patient request if the prescription is for a sched... Start Date: 10/14/21 Stop Date: 10/19/21 Status: Ordered buPROPion 150 mg/24 hours (XL) oral tablet, extended release TAKE 1 TABLET BY MOUTH EVERY DAY Start Date: 05/05/21 Status: Ordered [facility] MELATONIN 3 MG TABLET [facility] MELATONIN 3 MG TABLET, 1, tablet, [...] A DAY, # 120 tablet, 2 Refills, [facility] 66191, 160.02, cm, 07/05/21 10:30:00 EST, Height, 85, [...] WITH FOOD, # 30 tablet, 1 Refills, [facility] 01077, 160.02, cm, 09/16/21 14:31:00 EST, Height, 85, [...] 09/07/21 11:12:00 EST, Route to Pharmacy Electronically, [id number], [facility]/pharmacy #1972, 160.02, cm, 09/07/21 10:18:00 EST, Height,... Start Date: 09/07/21 Stop Date: 09/02/22 Status: Ordered Spiriva Respimat 1.25 mcg/inh inhalation aerosol 2 PUFFS INHALATION ONCE A DAY 30 DAYS Start Date: 05/05/21 Status: Ordered Spiriva Respimat 1.25 mcg/inh inhalation aerosol 2 puffs, Inhalation, Daily, # 1 each, 11 Refills, Maintenance, 09/07/21 11:12:00 EST, [facility]/pharmacy #1972, Partial fill upon patient [...] 1 Refills, Soft Stop, 10/07/20 9:06:00 EST, [facility]/pharmacy #1972, Partial fill upon patient [...] 17:59:00 EST, Aerosol, Route to Pharmacy Electronically, [id number], [facility]/pharmacy #1972, 160... Start Date: 09/08/21 Status: Ordered Tessalon Perles 100 mg oral capsule 1 capsule = 100 mg, By Mouth, 3 times a day, PRN Cough, # 20 capsule, 0 Refills, Maintenance, 09/16/21 15:25:00 EST, [facility]/pharmacy #1972, Partial fill upon patient request if the prescription is for aschedule II opioid drug., 160.02, cm, 09/16/21 14:3... Start Date: 09/16/21 Status: Ordered verapamil 180 mg oral capsule, extended release 1 capsule, By Mouth, Daily, # 30 capsule, 5 Refills, [facility] STORE 40793, 160.02, cm, 07/05/21 10:30:00EST, Height, 85, kg, [...] Active Obese class I(Confirmed) Active OCD(Confirmed) Active *Nehemiahhenrryyuli RodriguezCanton, Care Coord avril, ICP [phone](Confirmed) Active 1Jwonglarry Ferdinand [facility] Psychiatry [place] 2Case Block Operator [place] Proctor ([facility]); Psychiatrist - Dr Konstantin Narvaez [...] Exam Date Time Procedure Performing Provider Status 11/11/21 10:45 AM Chest 2 Views Frontal and Lat Phyllis z , Naima; Auth (Verified) Notes: (Chest 2 Views Frontal and Lat) Reason For Exam: Chest Pain;Other: RESULT: Chest 2 Views Frontal and Lat PA and lateral chest dated November 11, 2021. No prior studies are available. HISTORY: Chest pain. FINDINGS: The cardiac silhouette is within normal limits for size. Hilar and mediastinal structuresshow some minimal mural calcifications. No airspace infiltrate is identified. There is very minimalblunting of the left posterior costophrenic sulcus which may represent a minimal effusion versus pleural thickening. Visualized osseous structures are unremarkable. IMPRESSION: Question very minimal left pleural effusion versus pleural thickening. Examination 19223. Thank you for allowing me to participate in the care of this patient. WSN: [id number] Ordering Physician: Cehlsea Espino Dictated By: Karl Akins MD Dictated Date/Time: 11/11/21 1:10 pm Reviewed By: Karl Akins MD Signed By: Karl Akins MD Signed Date/Time: 11/11/21 1:10 pm Transcribed By: LUNA Transcribed Date/Time: 11/11/21 1:10 pm Vital Signs Most recent to oldest [Reference Range]: 1 2 3 Height 160 cm (11/11/21 9:53 AM) 160 cm (11/11/21 9:17 AM) Weight 88.2 kg (11/11/21 9:53 AM) 88.2 kg (11/11/21 9:17 AM) Oxygen Saturation [94-100 %] 95 % (11/11/21 5:11 PM) 98 % (11/11/21 1:44 PM) 100 % (11/11/21 11:27 AM) Pulse Rate [55-90 bpm] 116 bpm *H* (11/11/21 5:11 PM) 72 bpm (11/11/21 1:44 PM) 68 bpm (11/11/21 11:27 AM) Body Mass Index [18.5-24.99] 34.45 *>HHI* (11/11/21 9:17 AM) Blood Pressure [90-138/55-84 mm Hg] 129/110mm Hg (11/11/21 5:11 PM) 142/85mm Hg *H* (11/11/21 1:44 PM) 141/78mm Hg *H* (11/11/21 11:27 AM) Respiratory Rate [16-30 br/min] 18 br/min (11/11/21 1:44 PM) 16 br/min (11/11/21 9:17 AM) Temperature [96.8-100.4 DegF] 97.1 DegF (11/11/21 5:11 PM) 97.4 DegF (11/11/21 1:44 PM) 96.8 DegF (11/11/21 11:27 AM) Mode of Delivery (Oxygen) Room air (11/11/21 5:11 PM) Room air (11/11/21 1:44 PM) Room air (11/11/21 11:27 AM) Blood pressure sites Arm, left (11/11/21 5:11 PM) Arm, right (11/11/21 1:44 PM) Arm, right (11/11/21 11:27 AM) Temperature Route Temporal (11/11/21 5:11 PM) Oral (11/11/21 1:44 PM) Oral (11/11/21 11:27 AM) Dry Weight 88.2 kg (11/11/21 9:53 AM) 88.2 kg (11/11/21 9:17 AM) Weight Obtained Via Standing scale (11/11/21 9:17 AM) Dry Weight Obtained Via Standing scale (11/11/21 9:17 AM) Social History Social History Type Response Smoking Status Never smoker entered on: 02/07/14 Sex Female
--- OUTSIDE RECORDS SUMMARY | 2024-04-05 15:30 | XMS_ITS | Continuity of Care Document ---
Author Organization [facility] Address [address] [place] [address]- Care Team Providers Care Forest Firefighter Name Role Phone Mitch Lopez Primary Care Physician [facility] 03[facility]11[facility]21 - 04/10/21 [facility] [address] [place] [address]- Allergies, Adverse Reactions, Alerts Substance Reaction Severity [...] [facility]OUTH, [facility] on [address] in [place]. 4Location History: [facility] pharmacy 5Result Comment: [06/27/2014] PT HAD AT [facility] 6Admin Note: VIS GIVEN VIS DATE [...] OF BREATH, # 8.5 Unknown, 5 Refills, [facility] STORE 98641, 25, INHALE 2 PUFFS EVERY 6 HOURS [...] Gm, 0 Refills, Maintenance, 08/08/20 15:21:00 EST, [place], [facility], Partial fill upon patient [...] 05/19/20 16:20:00 EDT, Route to Pharmacy Electronically, [id number], [facility], 160.02, cm, 04/28/20 13:40:00 EDT, Height, 9... Start Date: 05/19/20 Stop Date: 11/15/20 Status: Ordered ProAir HFA 90 mcg/inh inhalation aerosol with adapter 2, puffs, Inhalation, Every 6 hours, PRN, # 1 each, Refills 5, Tot. Refills 5, Maintenance, 06/16/20 18:28:00 EST, Route to Pharmacy Electronically, [id number], [facility], 160.02, cm, 05/27/20 13:10:00 EDT, Height, [...] Refills, Maintenance, 02/04/21 9:28:00 EDT, [facility], 160.02, cm, 01/26/21 9:12:00 EDT, Height, 88.8, [...] Active *Joseph Resendez, Care Coord inator, ICP [phone](Confirmed) Active 1Jantoinette Streeter [facility] [place] Psychiatry [place] 2Case Tool Chaser [place] Pro[place] ([facility]); Psychiatrist - Dr Konstantin Narvaez 3admitted [...]
--- OUTSIDE RECORDS SUMMARY | 2024-04-05 15:30 | XMS_ITS | Continuity of Care Document ---
Author Organization [facility] Address [address] [place] [address]- Care Team Providers Care Spiral Tube Winder Name Role Phone Mitch Lopez Primary Care Physician [phone] [facility] 01[facility]13/23 - 02/12/23 [facility] [address] [place] [address]- Attending Physician: Jana Mercado Admitting Physician: AdmtrJana [...] Refuses 1Admin Note: Administered at [facility] on [facility] in [place]. 2Location History: [facility] pharmacy 3Result Comment: [06/27/2014] PT HAD AT [facility] 4Admin Note: VIS GIVEN VIS DATE 01/30/2012 5Admin Note: flulaval vis given vis date 02/22/2011 6Admin Note: vis given 03/09/10 7Result Comment: Received at [facility] on [facility] 8Admin Note: VIS given [...] 1 Refills, Maintenance, 07/07/22 18:54:00 EST, [facility] STORE 06194, 30, APPLY 1 PATCH TOPICALLY DAILY NEEDED [...] 16:24:00 EDT, Route to Pharmacy Electronically, [facility]/pharmacy #1972, Partial fill upon patien... Start [...] Refills, Maintenance, 07/12/22 14:20:00 EST, [facility]/pharmacy #1972, Partial fill upon patient request if the prescription is for a schedule II opioid drug., 160, cm, 07/12/22 13:43:00 EST, Height, 88.2,... Start Date: 07/12/22 Status: Ordered Spiriva Respimat 1.25 mcg/inh inhalation aerosol 2 puffs, Inhalation, Daily, # 1 each, 11 Refills, Maintenance, 11/21/22 12:15:00 EDT, [facility]/pharmacy #1972, [...] 19:11:00 EDT, Aerosol, Route to Pharmacy Electronically, [id number], [facility]/pharmacy #1972, 161... Start Date: 11/24/22 Status: [...] Confirmed Active OCD Confirmed Active *Joseph Resendez, Donor Specialist, ICP [phone] Confirmed Active 1Jantoinette Streeter [facility] 2Case Lacquer Polisher [place] ([facility]); Psychiatrist - Dr Konstantin Narvaez 3admitted at [...] Professional Member Role: PCP Address: Address: [address] [place] [address] [place] [address]- Care Team Related Persons Name: GABINO CASTANEDA Address: home [address] [place] [address] Name: JERROD BEAUCHAMP Address: [place], [place] Name: BRE MIRANDA Address: home [address] [place] [address] Name: ALEYDA BEE Address: home [address] [place] [address] Name: ALEYDA BEE Address: home [address] [place] [address] Name: ROMIE PUENTES Address: home [address] [place] [id number]
--- OUTSIDE RECORDS SUMMARY | 2024-04-05 15:30 | XMS_ITS | Continuity of Care Document ---
Author Organization [facility] Address [address] [place] [address]- Care Team Providers Care Concession Cashier Name Role Phone Mitch Lopez Primary Care Physician [facility] 06/11/21 - 07/11/21 [facility] [address] [place] [address]- Attending Physician: Not on Staff, Attending MD Referring Physician: Mitch Lopez Allergies, Adverse [...] Given Patient Refuses 1Result Comment: Received at [facility] on [address] 2Admin Note: VIS given 3Admin Note: Administered at [facility] on [address] in [place]. 4Location History: [facility] pharmacy [...] 1 each, 0 Refills, 04/14/21 19:19:00 EDT, [facility]/pharmacy #1972, INHALE 2 PUFFS EVERY 6 HOURS NEEDED FOR WHEEZING/SHORTNESS OF BREATH, 160.02, cm, 04/14/21 14... Start Date: 04/14/21 Status: Ordered Azithromycin 5 Day Dose Pack 250 mg oral tablet See Instructions, as directed on package labeling, # 6 tablet, 0 Refills, Maintenance, 05/05/21 9:14:00 EDT, [facility]/pharmacy #1972, Partial [...] 06/01/21 18:02:00 EDT, Route to Pharmacy Electronically, [facility]/pharmacy #1972, Partial fill u... Start Date: [...] 42.5 Gm, 2 Refills, Maintenance, 09/08/20 14:57:00EST, [facility]/pharmacy #1972, 160.02, cm, 07/29/20 16:36:00 [...] 0 Refills, Maintenance, 03/08/21 18:54:00 EDT, Tablet, [facility]/pharmacy #1972, [...] 06/28/21 16:04:00 EST, Route to Pharmacy Electronically, [id number], [facility]/pharmacy#1972, 160.02, cm, 06/08/21 8:42:00 EST, Height, 85... Start Date: 06/28/21 Stop Date: 12/25/21 Status: Ordered ProAir HFA 90 mcg/inh inhalation aerosol with adapter 2, puffs, Inhalation, Every 6 hours, PRN, # 1 each, Refills 5, Tot. Refills 5, Maintenance, 05/19/20 16:20:00 EDT, Route to Pharmacy Electronically, [id number], [facility]/pharmacy#1972, 160.02, cm, 04/28/20 13:40:00 EDT, [...] Refills, Maintenance, 02/04/21 9:28:00 EDT, [facility], 160.02, cm, 01/26/21 9:12:00 EDT, Height, 88.8, [...] Active *Joseph Resendez, Care Coord inator, ICP [phone](Confirmed) Active 1Jantoinette Streeter [facility] Psychiatry [place] 2Case Program Coordinator Parish Proctor ([facility]); Psychiatrist - Dr [...]
--- OUTSIDE RECORDS SUMMARY | 2024-04-05 15:30 | XMS_ITS | Continuity of Care Document ---
Author Organization [facility] Address [address] [place] [address]- Care Team Providers Care Bill Peddler Name Role Phone Mitch Lopez Primary Care Physician [facility]): 03/24/21 - 04/23/21 [facility] [address] [place] [address] Allergies, Adverse Reactions, Alerts Substance [...] at [facility] on [address] in [place]. 4Location History: [facility] pharmacy 5Result Comment: [06/27/2014] PT HAD AT [facility] 6Admin Note: VIS GIVEN VIS [...] 1 each, 0 Refills, 04/14/21 19:19:00 EDT, [facility]/pharmacy #1972, INHALE 2 PUFFS EVERY 6 HOURS NEEDED FOR WHEEZING/SHORTNESS OF BREATH, 160.02, cm, 04/14/21 14... Start Date: 04/14/21 Status: Ordered cetirizine 10 mg oral tablet 1 tablet = 10 mg, By Mouth, Daily, # 30 tablet, 0 Refills, Maintenance, 12/04/20 17:24:00 EDT, Tablet, [facility]/pharmacy #1972, [...] 02/07/21 10:55:00 EDT, Route to Pharmacy Electronically, [facility]/pharmacy #1972, Partial [...] 0 Refills, Maintenance, 02/07/21 10:54:00 EDT, Gel, [facility]/pharmacy #1972, Partial fill upon patient request if the prescription is for a schedule II opioid drug., 160.02, cm, 02/04/21 15:57:00 EDT, [place]... Start Date: 02/07/21 Status: Ordered diclofenac 1% topical gel = 4 Gm, Topically, 4 times a day, PRN knee pain, Apply to painful knee, # 100 Gm, 0 Refills, Maintenance, 02/16/21 17:40:00 EDT, Gel, [facility]/pharmacy #1972, Partial [...] Gm, 0 Refills, Maintenance, 08/08/20 15:21:00 EST, [place], [facility], Partial fill upon patient request [...] 0 Refills, Maintenance, 03/08/21 18:54:00 EDT, Tablet, [facility]/pharmacy #1972, [...] 05/19/20 16:20:00 EDT, Route to Pharmacy Electronically, [id number], [facility]/pharmacy#1972, 160.02, cm, 04/28/20 13:40:00 EDT, Height, 9... Start Date: 05/19/20 Stop Date: 11/15/20 Status: Ordered ProAir HFA 90 mcg/inh inhalation aerosol with adapter 2, puffs, Inhalation, Every 6 hours, PRN, # 1 each, Refills 5, Tot. Refills 5, Maintenance, 06/16/20 18:28:00 EST, Route to Pharmacy Electronically, [id number], [facility]/pharmacy#1972, 160.02, cm, [...] 1 Refills, Soft Stop, 10/07/20 9:06:00 EST, [facility]/pharmacy #1972, Partial fill upon patient request if the prescription is for a schedule II opioid drug., 160.... Start Date: 10/07/20 Status: Ordered verapamil 180 mg oral capsule, extended release 1 capsule, By Mouth, Daily, # 30 capsule, 5 Refills, Maintenance, 02/04/21 9:28:00 EDT, [facility], 160.02, cm, 01/26/21 9:12:00 EDT, Height, 88.8, [...] Active *Joseph Resendez, Care Coord inator, ICP [phone](Confirmed) Active 1Jantoinette Streeter [facility] [place] [facility] [place] 2Case Supervisor [place] ([facility]); Psychiatrist - [...] by genetics 6follow up at [facility] GI - Dr Richey. Multiple endoscopies, all normal. Other diagnosis is Non-ulcer dyspepsia Social History Social History Type Response Smoking Status Never smoker entered on: 02/07/14 Sex Female
--- OUTSIDE RECORDS SUMMARY | 2024-04-05 15:30 | XMS_ITS | Continuity of Care Document ---
Author Organization [facility] Address [address] [place] [address]- Care Team Providers Care Microwave Engineer Name Role Phone Mitch Lopez Primary Care Physician [facility]): 03/28/22 - 04/27/22 [facility] [address] [place] [address]- Allergies, Adverse Reactions, Alerts Substance Reaction Severity [...] Note: Administered at [facility] on [facility] in [place]. 2Location History: [facility] pharmacy 3Result Comment: [06/27/2014] PT HAD AT [facility] 4Admin Note: VIS GIVEN VIS DATE 01/30/2012 5Admin Note: flulaval vis given vis date 02/22/2011 6Admin Note: vis given 03/09/10 7Result Comment: Received at [facility] on [facility] 8Admin Note: [...] tablet, 0 Refills, Maintenance, 04/15/22 16:54:00 EDT, [facility]/pharmacy #1972, Partial fill upon patient request [...] 01/03/22 11:58:00 EDT, Route to Pharmacy Electronically, [id number], [facility], 160, cm, 01/03/22 11:03:00 EDT, [...] 11:56:00 EDT, Aerosol, Route to Pharmacy Electronically, [id number], [facility]/pharmacy #1972, 160... Start Date: 01/03/22 Status: Ordered terazosin 2 mg oral capsule 1, capsule, By Mouth, Daily at bedtime, INSTR:CONTINUE TAKING TILL STONE EXPULSION OR TILL 4 WEEKS AND THEN DISCONTINUE., # 30 capsule, Refills 0, Maintenance, 03/28/22 14:40:00 EDT, Route to Pharmacy Electronically, [facility] STORE 46260, 160, cm, 03/15/22... Start Date: 03/28/22 Status: [...] Mouth, Daily, # 30 capsule, 5 Refills, [facility] STORE 09625, 160.02, cm, 07/05/21 10:30:00EST, Height, 85, kg, [...] Confirmed Active OCD Confirmed Active *Joseph Resendez, Waste Machine Offbearer, ICP [phone] Confirmed Active 1Jantoinette Streeter [facility] Psychiatry [place] 2Case Animation Artist Parish Proctor ([facility]); Psychiatrist - [...] at [facility] GI - Dr Richey. Multiple endoscopies, all normal. Other diagnosis is Non-ulcer dyspepsia Social History Social History Type Response Smoking Status Never smoker entered on: 02/07/14 Sex Female Patient Care team information Personnel Name: Mitch Lopez Address: Address: [address] [place] [address] [place] [address]-
--- OUTSIDE RECORDS SUMMARY | 2024-04-05 15:31 | XMS_ITS | Continuity of Care Document ---
Author Organization [facility] Address [address] [place] [address]- Care Team Providers Care Supervisor Vat House Name Role Phone Mitch Lopez Primary Care Physician [facility]): 05/28/21 - 06/27/21 [facility] [address] [place] [address]- Allergies, Adverse Reactions, Alerts Substance Reaction Severity [...] 1Result Comment: Received at [facility] on [address] 2Admin Note: VIS given 3Admin Note: Administered at [facility] on [address] in [place]. 4Location History: [facility] 5Result Comment: [06/27/2014] PT HAD AT [...] 05/19/20 16:20:00 EDT, Route to Pharmacy Electronically, [id number], [facility]/pharmacy#1972, 160.02, cm, 04/28/20 13:40:00 EDT, Height, 9... Start Date: 05/19/20 Stop Date: 11/15/20 Status: Ordered ProAir HFA 90 mcg/inh inhalation aerosol with adapter 2, puffs, Inhalation, Every 6 hours, PRN, # 1 each, Refills 5, Tot. Refills 5, Maintenance, 06/16/20 18:28:00 EST, Route to Pharmacy Electronically, [id number], [facility]/pharmacy#1972, 160.02, cm, 05/27/20 13:10:00 EDT, [...] Refills, Maintenance, 02/04/21 9:28:00 EDT, [facility], 160.02, cm, 01/26/21 9:12:00 EDT, Height, 88.8, [...] Active *Joseph Resendez, Care Coord inator, ICP [phone](Confirmed) Active 1Jantoinette Streeter [facility] 2Case Inspector And Clerk Parish Proctor ([facility]); Psychiatrist - Dr [...]
--- OUTSIDE RECORDS SUMMARY | 2024-04-05 15:31 | XMS_ITS | Continuity of Care Document ---
Author Organization [facility] Address [address] [place] [address]- Care Team Providers Care Dipper Operator Name Role Phone Mitch Lopez Primary Care Physician [facility]): 03/31/20 - 05/10/20 [facility] [address] [place] [address]- [facility] Attending Physician: Not on Staff, Attending [...] Given Patient Refuses 1Admin Note: Administered at [facility] on [facility] in [place]. 2Location History: [facility] pharmacy 3Result Comment: [06/27/2014] [facility] 4Admin Note: VIS GIVEN VIS DATE 01/30/2012 [...] Gm, 2 Refills, Maintenance, 03/04/20 12:12:00 EDT, [facility]/pharmacy #1972, 160.02, cm, 03/04/20 11:50:00 EDT, [...] 03/12/20 7:19:00 EDT, Route to Pharmacy Electronically, [id number], [facility]/pharmacy #1972, 160.02, cm, 03/04/20 11:50:00 EDT, [...] DAYS, # 30 capsule, 11 Refills, Maintenance, [facility] STORE 32741, 160.02, cm, 10/11/19 15:24:00 EDT, Height, 85.91, [...] Active *Joseph Resendez, Care Coord inator, ICP [phone](Confirmed) Active 1Jantoinette Streeter [facility] Psychiatry [place] 2Case Foil Operator Parish Esthela ([facility]); Psychiatrist - Dr Konstantin [...] BRCA1/2 negative,seen by genetics 6follow up at [facility] GI - Dr Richey. Multiple endoscopies, all normal. Other diagnosis is Non-ulcer dyspepsia Social History Social History Type Response Smoking Status Never smoker entered on: 02/07/14 Sex Female
--- OUTSIDE RECORDS SUMMARY | 2024-04-05 15:31 | XMS_ITS | Continuity of Care Document ---
Author Organization [facility] Address [address] [place] [address]- Care Team Providers Care Vp Talent Management Name Role Phone Mitch Lopez Primary Care Physician [facility]): [facility] - 09/08/19 [facility] [address] [place] [address]- [facility] Attending Physician: Not on Staff, Attending [...] Administered at [facility] on [address] in [place]. 2Location History: [facility] 3Result Comment: [06/27/2014] PT HAD AT [facility] 4Admin Note: VIS GIVEN VIS DATE [...] Replace Required Details, Route to Pharmacy Electronically, [facility]... Start Date: 08/09/19 Status: Ordered oxyCODONE 5 mg oral tablet See Instructions, PRN, 1 tablet By Mouth Every 6 hours as needed for pain., # 28 tablet, Refills 0,Tot. Refills 0, Maintenance, Pain , Mild, 08/09/19 8:53:00 EST, Instructions Replace Required Details, Route to Pharmacy Electronically, [facility]... Start Date: 08/09/19 Status: Ordered [...] 07/25/19 14:29:00 EST, Route to Pharmacy Electronically, [id number], [facility]/pharmacy#1972, 158, cm, 07/25/19 13:55:00 [...] migraine(Confirmed) Active OCD(Confirmed) Active 1Jantoinette Streeter [facility] 2Case Hospital Cleaning Specialist Parish Proctor ([facility]); Psychiatrist - Dr Konstantin Narvaez 3admitted at adult partial hospitalization program (adult intensive short term out-pt psychiatric program). 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 BRCA1/2 negative,seen by genetics 6follow up at [facility] GI - Dr Richey. Multiple endoscopies, all normal. Other diagnosis is Non-ulcer dyspepsia Social History Social History Type Response Smoking Status Never smoker entered on: 02/07/14 Sex Female
--- OUTSIDE RECORDS SUMMARY | 2024-04-05 15:31 | XMS_ITS | Continuity of Care Document ---
Author Organization [facility] Address [address] [place] [address]- Care Team Providers Care Boiler Erector Name Role Phone Mitch Lopez Primary Care Physician [phone] [facility] Date[facility] 04/27/21 - 05/27/[address] [address]- Allergies, Adverse Reactions, Alerts Substance Reaction Severity [...] Given Patient Refuses 1Result Comment: Received at [facility] on [address] 2Admin Note: VIS given 3Admin Note: Administered at [facility] on [address] in [place]. 4Location History: [facility] 5Result Comment: [06/27/2014] PT HAD AT [facility] 6Admin Note: VIS GIVEN VIS [...] 1 each, 0 Refills, 04/14/21 19:19:00 EDT, [facility]/pharmacy #1972, INHALE 2 PUFFS EVERY 6 HOURS NEEDED FOR WHEEZING/SHORTNESS OF BREATH, 160.02, cm, 04/14/21 14... Start Date: 04/14/21 Status: Ordered Azithromycin 5 Day Dose Pack 250 mg oral tablet See Instructions, as directed on package labeling, # 6 tablet, 0 Refills, Maintenance, 05/05/21 9:14:00 EDT, [facility]/pharmacy #1972, Partial fill upon patient [...] 06/09/21 16:02:00 EST, 05/26/21 16:02:00 EDT, Tablet, [facility]/pharmacy #1972, Partial fill upon patient request if the prescription is for a sche... Start Date: 05/26/21 Stop Date: 06/09/21 Status: Ordered Estrace Vaginal Cream 0.1 mg/g = 1 Gm, Vaginally, Every Monday and , # 42.5 Gm, 2 Refills, Maintenance, 09/08/20 14:57:00EST, [facility]/pharmacy #1972, 160.02, cm, 07/29/20 16:36:00 [...] 0 Refills, Maintenance, 03/08/21 18:54:00 EDT, Tablet, [facility]/pharmacy #1972, Partial fill upon patient request if the prescription is for a schedule II opioid drug., 160.02, cm, 03/08/21 18:21:00... Start Date: 03/08/21 Stop Date: 03/22/21 Status: Ordered ProAir HFA 90 mcg/inh inhalation aerosol with adapter 2, puffs, Inhalation, Every 6 hours, PRN, # 1 each, Refills 5, Tot. Refills 5, Maintenance, 05/19/20 16:20:00 EDT, Route to Pharmacy Electronically, [id number], [facility]/pharmacy#1972, 160.02, cm, 04/28/20 13:40:00 EDT, Height, 9... Start Date: 05/19/20 Stop Date: 11/15/20 Status: Ordered ProAir HFA 90 mcg/inh inhalation aerosol with adapter 2, puffs, Inhalation, Every 6 hours, PRN, # 1 each, Refills 5, Tot. Refills 5, Maintenance, 06/16/20 18:28:00 EST, Route to Pharmacy Electronically, [id number], [facility]/pharmacy#1972, 160.02, cm, 05/27/20 13:10:00 EDT, Height, [...] 1 Refills, Soft Stop, 10/07/20 9:06:00 EST, [facility]/pharmacy #1972, Partial fill upon patient request if the prescription is for a schedule II opioid drug., 160.... Start Date: 10/07/20 Status: Ordered Symbicort 160mcg/4.5mcg Inhaler INHALE 2 PUFFS TWICE A DAY Start Date: 05/05/21 Status: Ordered verapamil 180 mg oral capsule, extended release 1 capsule, By Mouth, Daily, # 30 capsule, 5 Refills, Maintenance, 02/04/21 9:28:00 EDT, [facility], 160.02, cm, 01/26/21 9:12:00 EDT, Height, 88.8, [...] OCD(Confirmed) Active *Joseph Resendez, Care Coord inator, [facility] [phone](Confirmed) Active Dyan Streeter [facility] [place] [facility] [place] 2Case Feather Cutting Machine Feeder Parish Proctor ([facility]); [...]
--- OUTSIDE RECORDS SUMMARY | 2024-04-05 15:31 | XMS_ITS | Continuity of Care Document ---
Author Organization [facility] Address [address] [place] [address]- Care Team Providers Care Allergy Physician Name Role Phone Mitch Lopez Primary Care Physician [facility] 06[facility]11[facility]21 - 07/11/21 [facility] [address] [place] [address]- Allergies, Adverse Reactions, Alerts Substance Reaction Severity [...] Received at [facility] on [address] 2Admin Note: VIS given 3Admin Note: Administered at [facility] on [address] in [place]. 4Location History: [facility] 5Result Comment: [06/27/2014] PT HAD AT [facility] 6Admin Note: VIS GIVEN VIS [...] 1 each, 0 Refills, 04/14/21 19:19:00 EDT, [facility]/pharmacy #1972, INHALE 2 PUFFS EVERY 6 HOURS NEEDED FOR WHEEZING/SHORTNESS OF BREATH, 160.02, cm, 04/14/21 14... Start Date: 04/14/21 Status: Ordered Azithromycin 5 Day Dose Pack 250 mg oral tablet See Instructions, as directed on package labeling, # 6 tablet, 0 Refills, Maintenance, 05/05/21 9:14:00 EDT, [facility]/pharmacy #1972, Partial fill upon patient request if [...] 06/01/21 18:02:00 EDT, Route to Pharmacy Electronically, [facility]/pharmacy #1972, Partial fill u... Start Date: 06/01/21 [...] 06/28/21 16:04:00 EST, Route to Pharmacy Electronically, [id number], [facility]/pharmacy#1972, 160.02, cm, 06/08/21 8:42:00 EST, Height, 85... Start Date: 06/28/21 Stop Date: 12/25/21 Status: Ordered ProAir HFA 90 mcg/inh inhalation aerosol with adapter 2, puffs, Inhalation, Every 6 hours, PRN, # 1 each, Refills 5, Tot. Refills 5, Maintenance, 05/19/20 16:20:00 EDT, Route to Pharmacy Electronically, [id number], [facility]/pharmacy#1972, 160.02, cm, 04/28/20 [...] 1 Refills, Soft Stop, 10/07/20 9:06:00 EST, [facility]/pharmacy #1972, Partial fill upon patient request if the prescription is for a schedule II opioid drug., 160.... Start Date: 10/07/20 Status: Ordered Symbicort 160mcg/4.5mcg Inhaler INHALE 2 PUFFS TWICE A DAY Start Date: 05/05/21 Status: Ordered verapamil 180 mg oral capsule, extended release 1 capsule, By Mouth, Daily, # 30 capsule, 5 Refills, Maintenance, 02/04/21 9:28:00 EDT, [facility], 160.02, cm, 01/26/21 9:12:00 EDT, Height, 88.8, [...] *Joseph Resendez, [facility], [facility] [phone](Confirmed) Active 1Jantoinette Streeter [facility] [place] 2Case Hatchery Manager Parish Proctor ([facility]); Psychiatrist [...]
--- OUTSIDE RECORDS SUMMARY | 2024-04-05 15:31 | XMS_ITS | Continuity of Care Document ---
Author Organization [facility] Address [address] [place] [address]- Care Team Providers Care Revenue Integrity Analyst Name Role Phone Mitch Lopez Primary Care Physician [facility]): 12/31/21 - 01/30/22 [facility] [address] [place] [address]- Allergies, Adverse Reactions, Alerts Substance Reaction Severity [...] Given Patient Refuses 1Admin Note: Administered at [facility] on [address] in [place]. 2Location History: [facility] pharmacy 3Result Comment: [06/27/2014] PT HAD AT [facility] 4Admin Note: VIS GIVEN VIS DATE 01/30/2012 5Admin Note: flulaval vis given vis date 02/22/2011 6Admin Note: vis given 03/09/10 7Result Comment: Received at [facility] on [address] 8Admin Note: VIS given 9Admin [...] # 120 tablet, 2 Refills, [facility], 160, cm, 11/22/21 10:23:00 EDT, Height, 88.2, [...] 01/03/22 11:58:00 EDT, Route to Pharmacy Electronically, [id number], [facility]/pharmacy #1972, 160, cm, 01/03/22 11:03:00 [...] 11:56:00 EDT, Aerosol, Route to Pharmacy Electronically, [id number], [facility], 160... Start Date: 01/03/22 Status: Ordered terazosin 2 mg oral capsule 2 mg, 1, capsule, By Mouth, Daily at bedtime, continue taking till stone expulsion or till 4 weeks and then discontinue., # 30 capsule, Refills 0, Tot. Refills 0, Maintenance, 01/20/22 15:34:00 EDT, Route to Pharmacy Electronically, [facility]/pharmacy #1972... Start Date: 01/20/22 Status: Ordered [...] # 30 capsule, 5 Refills, [facility], 160.02, cm, 07/05/21 10:30:00EST, Height, 85, kg, [...] Active OCD(Confirmed) Active *Joseph Resendez, Care Coord [facility], [facility] [phone](Confirmed) Active Dyan Streeter [facility] [place] [facility] [place] 2Case Electrical Engineer Mep Parish Proctor ([facility]); Psychiatrist [...] BRCA1/2 negative,seen by genetics 6follow up at [facility] GI - Dr Richey. Multiple endoscopies, all normal. Other diagnosis is Non-ulcer dyspepsia Social History Social History Type Response Smoking Status Never smoker entered on: 02/07/14 Sex Female
--- OUTSIDE RECORDS SUMMARY | 2024-04-05 15:31 | XMS_ITS | Continuity of Care Document ---
Author Organization [facility] Address [address] [place] [address]- Care Team Providers Care Youth Advocate Name Role Phone Mitch Lopez Primary Care Physician [facility]): 09/24/20 - 10/24/20 [facility] [address] [place] [address]- Allergies, Adverse Reactions, Alerts Substance Reaction Severity [...] [facility] on [address] in [place]. 4Location History: [facility] 5Result Comment: [06/27/2014] PT HAD AT [facility] 6Admin Note: VIS GIVEN VIS DATE 01/30/2012 [...] EDT, Compound Start Date: 10/16/18 Status: Ordered [facility] MELATONIN 3 MG TABLET [facility] MELATONIN 3 [...] Gm, 0 Refills, Maintenance, 08/08/20 15:21:00 EST, [place], [facility], Partial fill upon patient request [...] 05/19/20 16:20:00 EDT, Route to Pharmacy Electronically, [id number], [facility]/pharmacy#1972, 160.02, cm, 04/28/20 13:40:00 EDT, Height, 9... Start Date: 05/19/20 Stop Date: 11/15/20 Status: Ordered ProAir HFA 90 mcg/inh inhalation aerosol with adapter 2, puffs, Inhalation, Every 6 hours, PRN, # 1 each, Refills 5, Tot. Refills 5, Maintenance, 06/16/20 18:28:00 EST, Route to Pharmacy Electronically, [id number], [facility]/pharmacy#1972, 160.02, cm, [...] Active *Joseph Resendez, Care Coord inator, ICP [phone](Confirmed) Active 1Jantoinette Streeter [facility] [place] [facility] [place] 2Case Supervisor Dry Cell Assembly Parish Proctor ([facility]); Psychiatrist - Dr Konstantin Narvaez 3admitted [...]
--- OUTSIDE RECORDS SUMMARY | 2024-04-05 15:31 | XMS_ITS | Continuity of Care Document ---
Author Organization [facility] ter Address [address] [place] [address]- Care Team Providers Care Benefits Processor Name Role Phone Mitch Lopez Primary Care Physician [facility]): 08/08/19 - 08/09/[address] [address]- [facility] Discharge Disposition: A-D/C Home Attending Physician: Deysi Gomez DO Admitting Physician: Deysi Gomez DO Referring Physician: Deysi Gomez DO Allergies, Adverse [...] at [facility] on [address] in [place]. 2[facility] 3Result Comment: [06/27/2014] PT [...] Replace Required Details, Route to Pharmacy Electronically, [facility]... Start Date: 08/09/19 Status: Ordered oxyCODONE 5 mg oral tablet See Instructions, PRN, 1 tablet By Mouth Every 6 hours as needed for pain., # 28 tablet, Refills 0,Tot. Refills 0, Maintenance, Pain , Mild, 08/09/19 8:53:00 EST, Instructions Replace Required Details, Route to Pharmacy Electronically, [facility]... Start Date: 08/09/19 Status: Ordered POISE [...] 07/25/19 14:29:00 EST, Route to Pharmacy Electronically, [id number], [facility]/pharmacy#1972, 158, cm, 07/25/19 13:55:00 EST, [...] Refills, Maintenance, 08/01/19 15:54:00 EST, ER Capsule, [facility]/pharmacy #1972, Patient lost medication. Please fill this script and cancel old script., 160.02, cm, 08/01/19 12:13:00 EST, He... Start Date: 08/01/19 Stop Date: 01/28/20 Status: Ordered Walker (wheeled)/cane as needed Walker (wheeled)/cane as needed, See Instructions, # 1 each, Refills 0, Tot. Refills 0, Maintenance, Walker (wheeled)/cane as needed, 08/09/19 7:13:00 EST, Compound Start Date: 08/09/19 Status: Ordered Problem List Condition Effective Dates Status Health Status Inform ant Asthma(Confirmed) 07/05/05 Active Bipolar disorder(Confirmed) 1, 2, 3 Active Chronic back pain(Confirmed) 07/05/05 Active Gastric nodule(Confirmed) 4 Active H/O ovarian cancer(Confirmed) 5 Active Hiatal hernia(Confirmed) Active Hysterectomy(Confirmed) Active Irritable bowel syndrome(Confirmed) 6 Active Kidney stone(Confirmed) Active Chronic migraine(Confirmed) Active OCD(Confirmed) Active 1Jantoinette Streeter [facility] [place] [facility] [place] 2Case Manager Programs Parish Proctor ([facility]); Psychiatrist [...] at [facility] GI - Dr Richey. Multiple endoscopies, all normal. Other diagnosis is Non-ulcer dyspepsia Results Radiology Reports * Exam Date Time Procedure Performing Provider Status 08/08/19 10:37 AM C-Arm < 1 Hour Cari Farias; Auth (Verified) Notes: (C-Arm < 1 Hour) Reason For Exam: Lumbar spine RESULT: C-Arm < 1 Hour Spine Single View, C-Arm < 1 Hour INDICATION: Reason: Lumbar spine; Special Instructions: TT: 50 min FT: 6 sec 4 images COMPARISONS: None TECHNIQUE: Fluoroscopy support was provided. There was no radiologist in attendance. Fluoroscopy time: 6 seconds Technologist time: 50 minutes Exposure: 3.75 mGy FINDINGS: 4 fluoroscopic spot images submitted. Please refer to operative report for findings and procedural narrative IMPRESSION: See above. WSN: [id number] Dictated By: Alvarado Fernandez MD Dictated Date/Time: 08/08/19 11:13 a Reviewed By: Alvarado Fernandez MD Signed By: Alvarado Fernandez MD Signed Date/Time: 08/08/19 11:13 am Transcribed By: LUNA Transcribed Date/Time: 08/08/19 11:12 am * Exam Date Time Procedure Performing Provider Status 08/08/19 10:37 AM Spine Single View Cari Farias; Au th (Verified) Notes: (Spine Single View) Reason For Exam: Lumbar spine RESULT: Spine Single View Spine Single View, C-Arm < 1 Hour INDICATION: Reason: Lumbar spine; Special Instructions: TT: 50 min FT: 6 sec 4 images COMPARISONS: None TECHNIQUE: Fluoroscopy support was provided. There was no radiologist in attendance. Fluoroscopy time: 6 seconds Technologist time: 50 minutes Exposure: 3.75 mGy FINDINGS: 4 fluoroscopic spot images submitted. Please refer to operative report for findings and procedural narrative IMPRESSION: See above. WSN: [id number] Dictated By: Alvarado Fernandez MD Dictated Date/Time: 08/08/19 11:13 a Reviewed By: Alvarado Fernandez MD Signed By: Alvarado Fernandez MD Signed Date/Time: 08/08/19 11:13 am Transcribed By: LUNA Transcribed Date/Time: 08/08/19 11:12 am Vital Signs Most recent to oldest [Reference Range]: 1 2 3 Height 160.02 cm (08/08/19 7:43 AM) 160.02 cm (08/01/19 12:13 PM) Weight 85.91 kg (08/08/19 7:43 AM) 85.91 kg (08/01/19 12:13 PM) Oxygen Saturation [94-100 %] 99 % (08/09/19 8:00 AM) 98 % (08/09/19 3:00 AM) 97 % (08/08/19 11:00 PM) Pulse Rate [55-90 bpm] 62 bpm (08/09/19 8:00 AM) 65 bpm (08/09/19 3:00 AM) 60 bpm (08/08/19 11:00 PM) Body Mass Index [18.5-24.99] 33.55 *>HHI* (08/08/19 7:43 AM) 33.55 *>HHI* (08/01/19 12:13 PM) Blood Pressure [90-138/55-84 mm Hg] 108/60mm Hg (08/09/19 8:00 AM) 109/58mm Hg (08/09/19 3:00 AM) 97/50mm Hg (08/08/19 11:00 PM) Respiratory Rate [16-30 br/min] 20 br/min (08/09/19 8:26 AM) 18 br/min (08/09/19 8:00 AM) 20 br/min (08/09/19 3:59 AM) Temperature [96.8-100.4 DegF] 97.6 DegF (08/09/19 8:00 AM) 98.6 DegF (08/09/19 3:00 AM) 98.5 DegF (08/08/19 11:00 PM) Liters per Minute 2 L/min (08/08/19 11:30 AM) 2 L/min (08/08/19 11:00 AM) 6 L/min (08/08/19 10:30 AM) Mode of Delivery (Oxygen) Room air (08/09/19 8:00 AM) Room air (08/09/19 3:00 AM) Room air (08/08/19 11:00 PM) Blood pressure sites Arm, left (08/09/19 8:00 AM) Arm, left (08/09/19 3:00 AM) Arm, right (08/08/19 11:00 PM) Temperature Route Oral (08/09/19 8:00 AM) Oral (08/09/19 3:00 AM) Oral (08/08/19 11:00 PM) Dry Weight 85.91 kg (08/01/19 12:13 PM) Weight Obtained Via Patient/family state d (08/01/19 12:13 PM) Dry Weight Obtained Via Patient/family s tated (08/01/19 12:13 PM) Social History Social History Type Response Smoking Status Never smoker entered on: 02/07/14 Sex Female
--- OUTSIDE RECORDS SUMMARY | 2024-04-05 15:31 | XMS_ITS | Continuity of Care Document ---
Author Organization [facility] Address [address] [place] [address]- Care Team Providers Care Log Hooker Name Role Phone Mitch Lopez Primary Care Physician [facility] 07[facility]22[facility]20 - 08/21/20 [facility] [address] [place], [place] [address] Allergies, Adverse Reactions, Alerts Substance [...] Comment: Received at [facility] on [address] 2Admin Note: VIS given 3Admin Note: Administered at [facility] on [address] in [place]. 4Location History: [facility] pharmacy 5Result Comment: [06/27/2014] PT HAD AT [facility] 6Admin Note: VIS GIVEN VIS DATE [...] Gm, 0 Refills, Maintenance, 08/08/20 15:21:00 EST, [place], [facility]/pharmacy #1972, Partial fill upon [...] 20:01:00 EST, Route to Pharmacy Electronically, [facility]/pharmacy [...] 05/19/20 16:20:00 EDT, Route to Pharmacy Electronically, [id number], [facility]/pharmacy#1972, 160.02, cm, 04/28/20 13:40:00 EDT, Height, 9... Start Date: 05/19/20 Stop Date: 11/15/20 Status: Ordered ProAir HFA 90 mcg/inh inhalation aerosol with adapter 2, puffs, Inhalation, Every 6 hours, PRN, # 1 each, Refills 5, Tot. Refills 5, Maintenance, 06/16/20 18:28:00 EST, Route to Pharmacy Electronically, [id number], [facility]/pharmacy#1972, 160.02, cm, 05/27/20 13:10:00 EDT, Height, [...] 30 capsule, 11 Refills, Maintenance, [facility], 160.02, cm, 10/11/19 15:24:00 EDT, Height, 85.91, [...] Active *Joseph Resendez, Care Coord inator, ICP [phone](Confirmed) Active Dyan Streeter [facility] [place] [facility] [place] 2Case Risk Modeler Parish Proctor ([facility]); Psychiatrist - Dr Konstantin Narvaez 3admitted [...]
--- OUTSIDE RECORDS SUMMARY | 2024-04-05 15:31 | XMS_ITS | Continuity of Care Document ---
Author Organization [facility] Address [address] [place] [address]- Care Team Providers Care Stock Supervisor Name Role Phone Mitch Lopez Primary Care Physician [place] [facility] Date(s[place] 12/04/20 - 01/03/21 [facility] [address] [place] [address]- Attending Physician: Jana Mercado Admitting Physician: Jana [...] Note: Administered at [facility] on [address] in [place]. 4Location History: [facility] pharmacy 5Result Comment: [06/27/2014] PT HAD AT [facility] 6Admin Note: VIS GIVEN VIS DATE 01/30/2012 [...] 0 Refills, Maintenance, 12/04/20 17:24:00 EDT, Tablet, [facility]/pharmacy #1972, Partial [...] Gm, 0 Refills, Maintenance, 08/08/20 15:21:00 EST, [place], [facility]/pharmacy #1972, Partial fill upon [...] 05/19/20 16:20:00 EDT, Route to Pharmacy Electronically, [id number], [facility]/pharmacy#1972, 160.02, cm, 04/28/20 13:40:00 EDT, Height, 9... Start Date: 05/19/20 Stop Date: 11/15/20 Status: Ordered ProAir HFA 90 mcg/inh inhalation aerosol with adapter 2, puffs, Inhalation, Every 6 hours, PRN, # 1 each, Refills 5, Tot. Refills 5, Maintenance, 06/16/20 18:28:00 EST, Route to Pharmacy Electronically, [id number], [facility]/pharmacy#1972, 160.02, cm, 05/27/20 13:10:00 EDT, [...] Active *Joseph Resendez, Care Coord inator, ICP [phone](Confirmed) Active 1Jantoinette Streeter [facility] [place] [facility] [place] 2Case It Project Coordinator Parish Proctor ([facility]); Psychiatrist - Dr Konstantin Narvaez 3admitted [...] by genetics 6follow up at [facility] GI - Dr Richey. Multiple endoscopies, all normal. Other diagnosis is Non-ulcer dyspepsia Social History Social History Type Response Smoking Status Never smoker entered on: 02/07/14 Sex Female
--- OUTSIDE RECORDS SUMMARY | 2024-04-05 15:31 | XMS_ITS | Continuity of Care Document ---
Author Organization [facility] Adult [facility] Address [address] [place] [address]- Care Team Providers Care Extension Service Specialist In Charge Name Role Phone Mitch Lopez Primary Care Physician [facility] - 05/13/22 [facility] [address] [place] [id number] Attending Physician: Jorge Fregoso MD Admitting Physician: [...] Note: Administered at [facility] on [facility] in [place]. 2Location History: [facility] pharmacy 3Result Comment: [06/27/2014] PT HAD AT [facility] 4Admin Note: VIS GIVEN VIS DATE 01/30/2012 5Admin Note: flulaval vis given vis date 02/22/2011 6Admin Note: vis given 03/09/10 7Result Comment: Received at [facility] on [facility] 8Admin Note: VIS given 9Admin Note: [...] tablet, 0 Refills, Maintenance, 04/15/22 16:54:00 EDT, [facility]/pharmacy #1972, Partial fill upon patient request if the prescription is for aschedule II opioid drug., 160, cm, 03/15/22 14:14:0... Start Date: 04/15/22 Status: Ordered albuterol CFC free 90 mcg/inh inhalation aerosol 1, puffs, Inhalation, Every 4 hours, PRN, # 6.7 Gm, Refills 3, Tot. Refills 3, Maintenance, 05/04/22 18:39:00 EDT, Aerosol, Route to Pharmacy Electronically, [id number], [facility], [place] to substitute ventolin, 160, [...] 30 tablet, 3 Refills, Maintenance, 01/03/22 11:56:00EDT, [facility]/pharmacy #1972, Partial fill upon patient request if the prescription is for a schedule IIopioid drug., 160, cm, 01/03/22 11:03:00 EDT, Jose... Start Date: 01/03/22 Status: Ordered montelukast 10 mg oral tablet TAKE 1 TABLET BY MOUTH EVERY DAY IN THE EVENING Start Date: 05/05/21 Status: Ordered nabumetone 500 mg oral tablet 1 tablet, By Mouth, 2 times a day, TAKE WITH FOOD., # 60 tablet, 0 Refills, Maintenance, 05/12/22 13:13:00 EDT, [facility], 160, cm, 05/04/22 16:09:00 EDT, Height, 88.2, kg, 11/11/21 9:53:00 EDT, Dry Weight Start Date: 05/12/22 Status: Ordered Premarin 0.3 mg oral tablet 1 tablet = 0.3 mg, By Mouth, Daily, # 30 tablet, 3 Refills, Maintenance, 03/28/22 16:11:00 EDT, [facility]/pharmacy #1972, Partial fill upon patient request if the prescription is for a schedule II opioid drug., 160, cm, 03/15/22 14:14:00 EDT, Height, 88.2,... Start Date: 03/28/22 Status: Ordered ProAir HFA 90 mcg/inh inhalation aerosol with adapter 2, puffs, Inhalation, Every 6 hours, PRN, # 1 each, Refills 11, Tot. Refills 11, Maintenance, 01/03/22 11:58:00 EDT, Route to Pharmacy Electronically, [id number], [facility]/pharmacy #1972, 160, cm, 01/03/22 11:03:00 EDT, Height, [...] 11:56:00 EDT, Aerosol, Route to Pharmacy Electronically, [id number], [facility]/pharmacy #1972, 160... Start Date: 01/03/22 Status: Ordered terazosin 2 mg oral capsule 1, capsule, By Mouth, Daily at bedtime, INSTR:CONTINUE TAKING TILL STONE EXPULSION OR TILL 4 WEEKS AND THEN DISCONTINUE., # 30 capsule, Refills 0, Maintenance, 03/28/22 14:40:00 EDT, Route to Pharmacy Electronically, [facility], 160, cm, 03/15/22... Start Date: 03/28/22 Status: [...] # 30 capsule, 5 Refills, [facility], 160.02, cm, 07/05/21 10:30:00EST, Height, 85, kg, [...] Confirmed Active OCD Confirmed Active *Joseph Resendez, Automotive Wholesale Parts Advisor, ICP [phone] Confirmed Active 1Jantoinette Streeter [facility] [place] 2Case Backshoe Person Parish Proctor ([facility]); Psychiatrist - Dr Konstantin Narvaez 3admitted [...] information Personnel Name: Mitch Lopez Address: Address: [address] [place] [address]
--- OUTSIDE RECORDS SUMMARY | 2024-04-05 15:31 | XMS_ITS | Continuity of Care Document ---
Author Organization [facility] Adult Medicine Address [address] [place] [address]- Care Team Providers Care Heat Plant Specialist Name Role Phone Mitch Lopez Primary Care Physician [phone] [facility] 09[facility]23 - 10/07/23 [facility] [address] [place] [id number] Allergies, Adverse Reactions, Alerts Substance [...] 07/18/06 Given 1Admin Note: Administered at [facility] on [facility] in [place]. 2Location History: [facility] pharmacy 3Result Comment: [06/27/2014] PT HAD AT [facility] 4Admin Note: VIS GIVEN VIS DATE 01/30/2012 5Admin Note: flulaval vis given vis date 02/22/2011 6Admin Note: vis given 03/09/10 7Result Comment: Received at [facility] on [facility] 8Admin Note: VIS given 9Admin [...] drug. Start Date: 09/14/22 Status: Ordered [facility] MELATONIN 3 MG TABLET [facility] MELATONIN 3 MG TABLET, 1, tablet, By Mouth, Daily at bedtime, # 30 tablet, 3 Refills, Maintenance, 03/31/23 18:55:00 EDT, 161, cm, 03/29/23 14:07:00 EDT, Height, 85, kg, 09/16/22 6:46:00 EST, DryWeight Start Date: 03/31/23 Status: Ordered diclofenac 1% topical gel 1 application, Topically, 4 times a day, PRN NEEDED, MODERATE PAIN., # 100 Gm, 3 Refills, Maintenance, 08/28/23 14:07:00 EST, [facility]/pharmacy #1972, 25, 1 application Topically 4 times a day,PRN: NEEDED,Instr:MODERATE PAIN., 161, cm, 08/16/23 11:00:... Start Date: 08/28/23 Status: Ordered hydrOXYzine hydrochloride 25 mg oral tablet 1 tablet, By Mouth, 2 times a day, PRN NEEDED FOR ANXIETY, # 60 tablet, 2 Refills, Maintenance, 06/09/23 19:43:00 EST, [facility], 161, cm, 05/27/23 9:13:00 EDT, Height, 85, kg, 09/16/22 6:46:00 EST, Dry Weight Start Date: 06/09/23 Status: Ordered lidocaine 5% topical film 1 patch, Topically, Daily, PRN NEEDED FOR PAIN REMOVE AFTER 12 HOURS, # 30 patch, 1 Refills, Maintenance, 07/28/23 17:33:00 EST, [facility], 30, APPLY 1 PATCH TOPICALLY DAILY NEEDED FOR PAIN REMOVE AFTER 12 HOURS, 161, cm, 07/20/23 10:04:00... Start Date: 07/28/23 Status: Ordered Lidoderm 5% film 1 patch, Topically, Daily, remove patches after 12 hours, # 30 patch, 0 Refills, Maintenance, 08/16/23 11:10:00 EST, [facility]/pharmacy #1972, Partial fill [...] 0 Refills, Maintenance, 03/31/23 18:55:00 EDT, [facility] ST[facility] 81460, 161, cm, 03/29/23 14:07:00 EDT, Height, 85, [...] tablet, 0 Refills, Maintenance, 07/02/23 8:58:00 EST, [facility]/pharmacy #1972, Partial fill [...] 10:54:00 EST, Aerosol, Route to Pharmacy Electronically, [id number], [facility]/pharmacy #1972, 161... Start Date: 07/05/23 Status: Ordered [...] Confirmed Active OCD Confirmed Active *Joseph Resendez, Cognos Bi Developer, [facility] [phone] Confirmed Active 1Jantoinette Streeter [facility] [place] [facility] [place] 2Case Process Inspector Parish Proctor ([facility]); Psychiatrist - [...] Lopez Position: [facility] PCO Associate Professional Member Role: PCP Address: Address: [address] [place] [address] [place] [address]- [place] Care Team Related Persons Name: GABINO CASTANEDA Address: home [address] [place] [address] Name: JERROD BEAUCHAMP Address: [place], [place] Name: BRE MIRANDA Address: home [address] [place] [address] Name: ALEYDA BEE Address: home [address] [place] [address] Name: ALEYDA BEE Address: home [address] [place] [address] Name: ROMIE PUENTES Address: home [address] [place] [id number]
--- OUTSIDE RECORDS SUMMARY | 2024-04-05 15:31 | XMS_ITS | Continuity of Care Document ---
Author Organization [facility] Adult [facility] Address [address] [place] [address]- Care Team Providers Care Housing Installer Name Role Phone Mitch Lopez Primary Care Physician [phone] [facility]23 - 07/09/23 [facility] [address] [place], [place] [address] Attending Physician: Not on Staff, [...] 18 07/18/06 Given 1Admin Note: Administered at [facility] on [facility] in [place]. 2Location History: [facility] pharmacy 3Result Comment: [06/27/2014] PT HAD AT [facility] 4Admin Note: VIS GIVEN VIS DATE 01/30/2012 5Admin Note: flulaval vis given vis date 02/22/2011 6Admin Note: vis given 03/09/10 7Result Comment: Received at [facility] on [facility] 8Admin Note: [...] opioid drug. Start Date: 09/14/22 Status: Ordered [facility] MELATONIN 3 MG TABLET [facility] [...] Refills, Maintenance, 07/06/23 14:28:00 EST, [facility], 25, USE 1 APPLICATION TOPICALLY 4 TIMES A DAY NEEDED MODERATE PAIN, 161, cm, 07/05/23 10:50:00 EST, He... Start Date: 07/06/23 Status: Ordered hydrOXYzine hydrochloride 25 mg oral tablet 1 tablet, By Mouth, 2 times a day, PRN NEEDED FOR ANXIETY, # 60 tablet, 2 Refills, Maintenance, 06/09/23 19:43:00 EST, [facility], 161, cm, 05/27/23 9:13:00 EDT, Height, 85, kg, 09/16/22 6:46:00 EST, Dry Weight Start Date: 06/09/23 Status: Ordered lidocaine 5% topical film 1 patch, Topically, Daily, PRN NEEDED FOR PAIN REMOVE AFTER 12 HOURS, # 30 patch, 1 Refills, Maintenance, 03/29/23 15:10:00 EDT, [facility]/pharmacy #1972, 30, 1 patch Topically Daily,PRN: NEEDED FOR PAIN REMOVE AFTER 12 HOURS, 161, cm, 03/29/23 14:07:0... Start Date: 03/29/23 Status: Ordered Mapap Arthritis Pain 650 mg oral tablet, extended release 2 tablet = 1,300 mg, By Mouth, Every 8 hours, PRN as needed for pain, # 100 tablet, 1 Refills, Maintenance, 03/30/23 21:21:00 EDT, ER Tablet, [facility]/pharmacy #1972, Partial fill [...] tablet, 0 Refills, Maintenance, 03/31/23 18:55:00 EDT, [facility] STORE 29089, 161, cm, 03/29/23 14:07:00 EDT, Height, 85, [...] 10:54:00 EST, Aerosol, Route to Pharmacy Electronically, [id number], [facility], 161... Start Date: 07/05/23 Status: [...] Refills, Maintenance, 03/22/23 11:50:00 EDT, [facility], 161, cm, 03/20/23 17:26:00 EDT, Height, 85, [...] Confirmed Active OCD Confirmed Active *Joseph Resendez, Auto Hauler, ICP [phone] Confirmed Active 1Jantoinette Streeter [facility] Psychiatry [place] 2Case Hyperbaric Welder Diver Parish Proctor ([facility]); Psychiatrist - Dr Knostantin Narvaez 3admitted at adult partial hospitalization program [...] Professional Member Role: PCP Address: Address: [address] [place] [address] [place] [address]- Care Team Related Persons Name: GABINO CASTANEDA Address: home [address] [place] [address] Name: JERROD BEAUCHAMP Address: [place], [place] Name: BRE MIRANDA Address: [address] [place] [address] Name: ALEYDA BEE Address: [address] [place] [address] Name: ALEYDA BEE Address: home [address] [place] [address] Name: ROMIE PUENTES Address: home [address] [place] [address]
--- OUTSIDE RECORDS SUMMARY | 2024-04-05 15:31 | XMS_ITS | Continuity of Care Document ---
Author Organization [facility] Adult [facility] Address [address] [place] [address]- Care Team Providers Care Finishing Wire Sawyer Name Role Phone Mitch Lopez Primary Care Physician [facility] 06/09/23 - 07/09/23 [facility] Adult Medicine [address] [place], [place] [address] Allergies, Adverse Reactions, Alerts Substance Reaction Severity Status trimethoprim Urticaria Active prochlorperazine Unknown Active Bactrim bruising Active sulfa drugs Breathing problem Active Motrin Breathing problem GI upset Active Compazine unknown Active Immunizations Given and Recorded Vaccine Date Status Refusal Reason influenza virus vaccine, inactivated 04/29/22 Darren rded influenza virus vaccine, inactivated 05/10/21 Darren rded influenza virus vaccine, inactivated 04/02/20 Darrne rded influenza virus vaccine, inactivated 04/17/19 Darren [...] Given 1Admin Note: Administered at [facility] on [facility] in [place]. 2Location History: [facility] pharmacy 3Result Comment: [06/27/2014] PT HAD AT [facility] 4Admin Note: VIS GIVEN VIS DATE 01/30/2012 5Admin Note: flulaval vis given vis date 02/22/2011 6Admin Note: vis given 03/09/10 7Result Comment: Received at [facility] on [facility] 8Admin Note: VIS [...] Start Date: 09/14/22 Status: Ordered [facility] MELATONIN 3 MG TABLET [facility] MELATONIN 3 MG TABLET, 1, tablet, [...] Refills, Maintenance, 07/06/23 14:28:00 EST, [facility], 25, USE 1 APPLICATION TOPICALLY 4 TIMES A DAY NEEDED MODERATE PAIN, 161, cm, 07/05/23 10:50:00 EST, He... Start Date: 07/06/23 Status: Ordered hydrOXYzine hydrochloride 25 mg oral tablet 1 tablet, By Mouth, 2 times a day, PRN NEEDED FOR ANXIETY, # 60 tablet, 2 Refills, Maintenance, 06/09/23 19:43:00 EST, [facility], 161, cm, 05/27/23 9:13:00 EDT, Height, 85, kg, 09/16/22 6:46:00 EST, Dry Weight Start Date: 06/09/23 Status: Ordered lidocaine 5% topical film 1 patch, Topically, Daily, PRN NEEDED FOR PAIN REMOVE AFTER 12 HOURS, # 30 patch, 1 Refills, Maintenance, 03/29/23 15:10:00 EDT, [facility]/pharmacy #1972, 30, 1 patch Topically Daily,PRN: NEEDED FOR PAIN REMOVE AFTER 12 HOURS, 161, cm, 03/29/23 14:07:0... Start Date: 03/29/23 Status: Ordered Mapap Arthritis Pain 650 mg oral tablet, extended release 2 tablet = 1,300 mg, By Mouth, Every 8 hours, PRN as needed for pain, # 100 tablet, 1 Refills, Maintenance, 03/30/23 21:21:00 EDT, ER Tablet, [facility]/pharmacy #1972, Partial [...] Refills, Maintenance, 03/31/23 18:55:00 EDT, [facility] STORE 19436, 161, cm, 03/29/23 14:07:00 EDT, Height, 85, [...] 10:54:00 EST, Aerosol, Route to Pharmacy Electronically, [id number], [facility], 161... Start Date: 07/05/23 Status: [...] capsule, 1 Refills, Maintenance, 03/22/23 11:50:00 EDT, [facility] STORE 75386, 161, cm, 03/20/23 17:26:00 EDT, Height, 85, [...] Confirmed Active OCD Confirmed Active *Joseph Resendez, Geothermal Production Manager, ICP [phone] Confirmed Active 1Jantoinette Streeter [facility] 2Case Engineered Wood Designer Parish Proctor ([facility]); Psychiatrist - Dr [...] Professional Member Role: PCP Address: Address: [address] [place] [address] [place] [address]- Care Team Related Persons Name: GABINO CASTANEDA Address: [address] [place] [address] Name: JERROD BEAUCHAMP Address: [place], [place] Name: BRE MIRANDA Address: [address] [place] [address] Name: ALEYDA BEE Address: [address] [place] [address] Name: ALEYDA BEE Address: [address] [place] [address] Name: ROMIE PUENTES Address: home [address] [place] [address]
--- OUTSIDE RECORDS SUMMARY | 2024-04-05 15:31 | XMS_ITS | Continuity of Care Document ---
Author Organization [facility] Adult Medicine Address [address] [place] [address]- Care Team Providers Care Dry Wall Finisher Name Role Phone Mitch Lopez Primary Care Physician [facility]): 01/30/21 - 04/02/21 [facility] Adult [facility] [address] [place] [address]- Attending Physician: Mitch Lopez Admitting Physician: Mitch [...] 1Result Comment: Received at [facility] on [address] 2Admin Note: VIS given 3Admin Note: Administered at [facility] on [facility] in [place]. 4Location History: [facility] pharmacy 5Result Comment: [06/27/2014] PT HAD AT [facility] 6Admin Note: VIS GIVEN VIS DATE [...] OF BREATH, # 8.5 Unknown, 5 Refills, [facility] ST[facility] 99264, 25, INHALE 2 PUFFS EVERY 6 HOURS NEEDED FOR WHEEZING/SHORTNESSOF BREATH, 160.02, cm, 03/30/21 15:41:00 EDT, Heigh... Start Date: 03/30/21 Status: Ordered cetirizine 10 mg oral tablet 1 tablet = 10 mg, By Mouth, Daily, # 30 tablet, 0 Refills, Maintenance, 12/04/20 17:24:00 EDT, Tablet, [facility]/pharmacy #1972, Partial fill [...] 02/07/21 10:55:00 EDT, Route to Pharmacy Electronically, [facility]/pharmacy [...] 0 Refills, Maintenance, 02/07/21 10:54:00 EDT, Gel, [facility]/pharmacy #1972, Partial fill upon patient request if the prescription is for a schedule II opioid drug., 160.02, cm, 02/04/21 15:57:00 EDT, [facility]... Start Date: 02/07/21 Status: Ordered diclofenac 1% topical gel = 4 Gm, Topically, 4 times a day, PRN knee pain, Apply to painful knee, # 100 Gm, 0 Refills, Maintenance, 02/16/21 17:40:00 EDT, Gel, [facility]/pharmacy #1972, Partial fill upon patient [...] Gm, 0 Refills, Maintenance, 08/08/20 15:21:00 EST, [place], [facility], Partial fill upon patient request [...] 0 Refills, Maintenance, 03/08/21 18:54:00 EDT, Tablet, [facility]/pharmacy #1972, Partial fill upon patient request if the prescription is for a schedule II opioid drug., 160.02, cm, 03/08/21 18:21:00... Start Date: 03/08/21 Stop Date: 03/22/21 Status: Ordered ProAir HFA 90 mcg/inh inhalation aerosol with adapter 2, puffs, Inhalation, Every 6 hours, PRN, # 1 each, Refills 5, Tot. Refills 5, Maintenance, 05/19/20 16:20:00 EDT, Route to Pharmacy Electronically, [id number], [facility]/pharmacy#1972, 160.02, cm, 04/28/20 13:40:00 EDT, Height, 9... Start Date: 05/19/20 Stop Date: 11/15/20 Status: Ordered ProAir HFA 90 mcg/inh inhalation aerosol with adapter 2, puffs, Inhalation, Every 6 hours, PRN, # 1 each, Refills 5, Tot. Refills 5, Maintenance, 06/16/20 18:28:00 EST, Route to Pharmacy Electronically, [id number], [facility]/pharmacy#1972, 160.02, cm, 05/27/20 13:10:00 EDT, Height, [...] Refills, Maintenance, 02/04/21 9:28:00 EDT, [facility], 160.02, cm, 01/26/21 9:12:00 EDT, Height, 88.8, [...] Active *Joseph Resendez, Care Coord inator, ICP [phone](Confirmed) Active 1Jantoinette Streeter [facility] [place] [facility] [place] 2Case Workforce Investment Act Career Manager Parish Proctor ([facility]); Psychiatrist - [...]
--- OUTSIDE RECORDS SUMMARY | 2024-04-05 15:31 | XMS_ITS | Continuity of Care Document ---
Author Organization [facility] Address [address] [place] [address], [address] [place] [address]- Care Team Providers Care Monument Setter Helper Name Role Phone Mitch Lopez Primary Care Physician [facility] 03[facility]21[facility]22 - 04/20/22 [facility] [address] [place] [address] Drive, [address] [place], [place] [address] Allergies, Adverse Reactions, Alerts [...] at [facility] on [facility] in [place]. 2Location History: [facility] pharmacy 3Result Comment: [06/27/2014] PT HAD AT [facility] 4Admin Note: VIS GIVEN VIS DATE 01/30/2012 5Admin Note: flulaval vis given vis date 02/22/2011 6Admin Note: vis given 03/09/10 7Result Comment: Received at [facility] on [facility] 8Admin Note: VIS given 9Admin [...] 0 Refills, Maintenance, 04/15/22 16:54:00 EDT, [facility]/pharmacy #1972, Partial [...] 01/03/22 11:58:00 EDT, Route to Pharmacy Electronically, [id number], [facility], 160, cm, 01/03/22 11:03:00 EDT, [...] 11 Refills, Maintenance, 01/03/22 11:57:00 EDT, [facility]/pharmacy #1972, Partial [...] 11:56:00 EDT, Aerosol, Route to Pharmacy Electronically, [id number], [facility]/pharmacy #1972, 160... Start Date: 01/03/22 Status: Ordered terazosin 2 mg oral capsule 1, capsule, By Mouth, Daily at bedtime, INSTR:CONTINUE TAKING TILL STONE EXPULSION OR TILL 4 WEEKS AND THEN DISCONTINUE., # 30 capsule, Refills 0, Maintenance, 03/28/22 14:40:00 EDT, Route to Pharmacy Electronically, [facility] STORE 30695, 160, cm, 03/15/22... Start Date: 03/28/22 Status: [...] Mouth, Daily, # 30 capsule, 5 Refills, [facility] STORE 74256, 160.02, cm, 07/05/21 10:30:00EST, Height, 85, kg, [...] Active *Joseph Resendez, Care Coord inator, ICP [phone](Confirmed) Active 1Jantoinette Streeter [facility] Psychiatry [place] 2Case Pipe Cutter Parish Proctor ([facility]); Psychiatrist - Dr Konstantin Narvaez 3admitted [...] Care Team Personnel Name: Mitch Lopez Address: [address] [place] [address]
--- OUTSIDE RECORDS SUMMARY | 2024-04-05 15:31 | XMS_ITS | Continuity of Care Document ---
Author Organization [facility] Adult [facility] Address [address] [place] [address]- Care Team Providers Care Education Reviewer Name Role Phone Mitch Lopez Primary Care Physician [phone] [facility] 12/06/21 - 01/05/22 [facility] Adult [facility] [address] [place] [address]- Allergies, Adverse Reactions, Alerts Substance Reaction Severity [...] Given Patient Refuses 1Admin Note: Administered at [facility] on [facility] in [place]. 2Location History: [facility] pharmacy 3Result Comment: [06/27/2014] PT HAD AT [facility] 4Admin Note: VIS GIVEN VIS DATE 01/30/2012 5Admin Note: flulaval vis given vis date 02/22/2011 6Admin Note: vis given 03/09/10 7Result Comment: Received at [facility] on [facility] [...] a day, # 120 tablet, 2 Refills, [facility] STORE 04537, 160, cm, 11/22/21 10:23:00 EDT, Height, 88.2, [...] 01/03/22 11:58:00 EDT, Route to Pharmacy Electronically, [id number], [facility]/pharmacy #1972, 160, cm, 01/03/22 11:03:00 EDT, [...] 11:56:00 EDT, Aerosol, Route to Pharmacy Electronically, [id number], [facility], 160... Start Date: 01/03/22 Status: Ordered Tessalon Perles 100 mg oral capsule 1 capsule = 100 mg, By Mouth, 3 times a day, PRN Cough, # 20 capsule, 0 Refills, Maintenance, 09/16/21 15:25:00 EST, [facility]/pharmacy #1972, Partial fill upon patient request if the prescription is for aschedule II opioid drug., 160.02, cm, 09/16/21 14:3... Start Date: 09/16/21 Status: Ordered verapamil 180 mg oral capsule, extended release 1 capsule, By Mouth, Daily, # 30 capsule, 5 Refills, [facility], 160.02, cm, 07/05/21 10:30:00EST, Height, 85, kg, [...] *Joseph Resendez, [facility], [facility] [phone](Confirmed) Active 1Jantoinette Streeter [facility] Psychiatry [place] 2Case Brine Plant Operator Parish Proctor ([facility]); Psychiatrist - Dr [...] [facility] GI - Dr Desilets. Multiple endoscopies, all normal. Other diagnosis is Non-ulcer dyspepsia Social History Social History Type Response Smoking Status Never smoker entered on: 02/07/14 Sex Female
--- OUTSIDE RECORDS SUMMARY | 2024-04-05 15:31 | XMS_ITS | Continuity of Care Document ---
Author Organization [facility] Address [address] [place] [address]- Care Team Providers Care Alcohol Law Enforcement Agent Name Role Phone Mitch Lopez Primary Care Physician [facility] 06[facility]21 - 07/28/21 [facility] [address], [place] [address] Allergies, Adverse Reactions, Alerts [...] Given Patient Refuses 1Result Comment: Received at [facility] on [address] 2Admin Note: VIS given 3Admin Note: Administered at [facility] on [address] in [place]. 4Location History: [facility] pharmacy 5Result Comment: [06/27/2014] PT HAD [...] 1 each, 0 Refills, 04/14/21 19:19:00 EDT, [facility]/pharmacy #1972, INHALE 2 PUFFS EVERY 6 HOURS NEEDED FOR WHEEZING/SHORTNESS OF BREATH, 160.02, cm, 04/14/21 14... Start Date: 04/14/21 Status: Ordered Azithromycin 5 Day Dose Pack 250 mg oral tablet See Instructions, as directed on package labeling, # 6 tablet, 0 Refills, Maintenance, 05/05/21 9:14:00 EDT, [facility]/pharmacy #1972, Partial fill upon patient [...] 06/01/21 18:02:00 EDT, Route to Pharmacy Electronically, [facility]/pharmacy #1972, Partial fill u... Start Date: [...] 42.5 Gm, 2 Refills, Maintenance, 09/08/20 14:57:00EST, [facility]/pharmacy #1972, 160.02, cm, 07/29/20 16:36:00 [...] 0 Refills, Maintenance, 03/08/21 18:54:00 EDT, Tablet, [facility]/pharmacy #1972, Partial fill upon patient request if the prescription is for a schedule II opioid drug., 160.02, cm, 03/08/21 18:21:00... Start Date: 03/08/21 Stop Date: 03/22/21 Status: Ordered ProAir HFA 90 mcg/inh inhalation aerosol with adapter 2, puffs, Inhalation, Every 6 hours, PRN, # 1 each, Refills 5, Tot. Refills 5, Maintenance, 06/28/21 16:04:00 EST, Route to Pharmacy Electronically, [id number], [facility]/pharmacy#1972, 160.02, cm, 06/08/21 8:42:00 EST, Height, 85... Start Date: 06/28/21 Stop Date: 12/25/21 Status: Ordered ProAir HFA 90 mcg/inh inhalation aerosol with adapter 2, puffs, Inhalation, Every 6 hours, PRN, # 1 each, Refills 5, Tot. Refills 5, Maintenance, 05/19/20 16:20:00 EDT, Route to Pharmacy Electronically, [id number], [facility]/pharmacy#1972, 160.02, cm, 04/28/20 13:40:00 EDT, [...] 1 Refills, Soft Stop, 10/07/20 9:06:00 EST, [facility]/pharmacy #1972, Partial fill upon patient request if the prescription is for a schedule II opioid drug., 160.... Start Date: 10/07/20 Status: Ordered Symbicort 160mcg/4.5mcg Inhaler INHALE 2 PUFFS TWICE A DAY Start Date: 05/05/21 Status: Ordered verapamil 180 mg oral capsule, extended release 1 capsule, By Mouth, Daily, # 30 capsule, 5 Refills, Maintenance, 02/04/21 9:28:00 EDT, [facility], 160.02, cm, 01/26/21 9:12:00 EDT, Height, 88.8, [...] Active *Joseph Resendez, Care Coord inator, ICP [phone](Confirmed) Active 1Jantoinette Streeter [facility] [place] 2Case Pressure Control Supervisor [place] Pro[place] ([facility]); [...]
--- OUTSIDE RECORDS SUMMARY | 2024-04-05 15:31 | XMS_ITS | Continuity of Care Document ---
Author Organization [facility] Address [address] [place] [address]- Care Team Providers Care Roof Bolter Operator Name Role Phone Mitch Lopez Primary Care Physician [phone] [place] [facility] [place] - 03/18/21 [facility] [address] [place] [address]- Attending Physician: Wu Taylor MD Referring Physician: [...] Patient Refuses 1Result Comment: Received at [facility] on [address] 2Admin Note: VIS given 3Admin Note: Administered at [facility] on [address] in [place]. 4Location History: [facility] pharmacy 5Result [...] Refills, Maintenance, 12/04/20 17:24:00 EDT, Tablet, [facility]/pharmacy #1972, Partial fill upon patient request [...] 10:55:00 EDT, Route to Pharmacy Electronically, [facility]/pharmacy #1972, Partial fill upon patient request [...] Refills, Maintenance, 02/07/21 10:54:00 EDT, Gel, [facility]/pharmacy #1972, Partial fill upon patient request [...] Gm, 0 Refills, Maintenance, 08/08/20 15:21:00 EST, [place], [facility], Partial fill upon patient [...] 05/19/20 16:20:00 EDT, Route to Pharmacy Electronically, [id number], [facility], 160.02, cm, 04/28/20 13:40:00 EDT, Height, 9... Start Date: 05/19/20 Stop Date: 11/15/20 Status: Ordered ProAir HFA 90 mcg/inh inhalation aerosol with adapter 2, puffs, Inhalation, Every 6 hours, PRN, # 1 each, Refills 5, Tot. Refills 5, Maintenance, 06/16/20 18:28:00 EST, Route to Pharmacy Electronically, [id number], [facility]/pharmacy#1972, 160.02, cm, 05/27/20 13:10:00 EDT, Height, [...] Refills, Soft Stop, 10/07/20 9:06:00 EST, [facility]/pharmacy #1972, Partial fill upon patient request if the prescription is for a schedule II opioid drug., 160.... Start Date: 10/07/20 Status: Ordered verapamil 180 mg oral capsule, extended release 1 capsule, By Mouth, Daily, # 30 capsule, 5 Refills, Maintenance, 02/04/21 9:28:00 EDT, [facility], 160.02, cm, 01/26/21 9:12:00 EDT, Height, 88.8, [...] Active *Joseph Resendez, Care Coord avril, ICP [phone](Confirmed) Active 1Jantoinette Streeter [facility] [place] 2Case [place] ([facility]); Psychiatrist - Dr Konstantin [...] BRCA1/2 negative,seen by genetics 6follow up at [facility] GI - Dr Richey. Multiple endoscopies, all normal. Other diagnosis is Non-ulcer dyspepsia Vital Signs Most recent to oldest [Reference Range]: 1 Height 160.02 cm (03/11/21 5:02 PM) Weight 85.0 kg (03/11/21 5:02 PM) Oxygen Saturation [94-100 %] 100 % (03/11/21 5:02 PM) Pulse Rate [55-90 bpm] 74 bpm (03/11/21 5:02 PM) Body Mass Index [18.5-24.99] 33.19 *>HHI* (03/11/21 5:02 PM) Blood Pressure [90-138/55-84 mm Hg] 111/ 63mm Hg (03/11/21 5:02 PM) Temperature [96.8-100.4 DegF] 98.3 DegF (03/11/21 5:02 PM) Mode of Delivery (Oxygen) Room air (03/11/21 5:02 PM) Blood pressure sites Arm, right (03/11/21 5:02 PM) Temperature Route Temporal (03/11/21 5:02 PM) Dry Weight 85.0 kg (03/11/21 5:02 PM) Weight Obtained Via Standing scale (03/11/21 5:02 PM) Dry Weight Obtained Via Standing scale (03/11/21 5:02 PM) Social History Social History Type Response Smoking Status Never smoker entered on: 02/07/14 Sex Female
--- OUTSIDE RECORDS SUMMARY | 2024-04-05 15:31 | XMS_ITS | Continuity of Care Document ---
Author Organization [facility] Address [address] [place] [address]- Care Team Providers Care Arcade Games Mechanic Name Role Phone Mitch Lopez Primary Care Physician [place] [facility] [place] - 11/05/21 [facility] [address] [place] [address]- Attending Physician: Gisel Cole MD Admitting Physician: Gisel Cole MD Referring Physician: Deysi Gomez DO Allergies, [...] Refuses 1Result Comment: Received at [facility] on [address] 2Admin Note: VIS given 3Admin Note: Administered at [facility] on [facility] in [place]. 4Location History: [facility] pharmacy 5Result [...] EDT, Route to Pharmacy Electronically, [facility]/pharmacy #1972, Partial fill upon patient request if the prescription is for a sched... Start Date: 10/14/21 Stop Date: 10/19/21 Status: Ordered buPROPion 150 mg/24 hours (XL) oral tablet, extended release TAKE 1 TABLET BY MOUTH EVERY DAY Start Date: 05/05/21 Status: Ordered [facility] MELATONIN 3 MG TABLET [facility] MELATONIN 3 MG TABLET, 1, tablet, By Mouth, Daily at bedtime, # 30 tablet, 2 Refills, Maintenance, 02/17/21 19:34:00 EDT, 160.02, cm, 02/16/21 17:20:00 EDT, Height, 88.8, kg, 11/24/20 15:58:00 EDT, Dry Weight Start Date: 02/17/21 Status: Ordered Estrace Vaginal Cream 0.1 mg/g = 1 Gm, Vaginally, Every Monday and , # 42.5 Gm, 2 Refills, Maintenance, 09/08/20 14:57:00EST, [facility]/pharmacy #1972, 160.02, cm, 07/29/20 16:36:00 [...] DAY, # 120 tablet, 2 Refills, [facility] 65662, 160.02, cm, 07/05/21 10:30:00 EST, Height, 85, kg, 03/11/21 17:07:00 EDT, Dry Weight Start Date: 08/22/21 Status: Ordered meloxicam 7.5 mg oral tablet 1 tablet, By Mouth, Daily, FOR ARTHRITIS PAIN. TAKE WITH FOOD, # 30 tablet, 1 Refills, [facility] 18718, 160.02, cm, 09/16/21 14:31:00 EST, Height, 85, [...] 09/07/21 11:12:00 EST, Route to Pharmacy Electronically, [id number], [facility]/pharmacy #1972, 160.02, cm, 09/07/21 10:18:00 EST, Height,... Start Date: 09/07/21 Stop Date: 09/02/22 Status: Ordered Spiriva Respimat 1.25 mcg/inh inhalation aerosol 2 PUFFS INHALATION ONCE A DAY 30 DAYS Start Date: 05/05/21 Status: Ordered Spiriva Respimat 1.25 mcg/inh inhalation aerosol 2 puffs, Inhalation, Daily, # 1 each, 11 Refills, Maintenance, 09/07/21 11:12:00 EST, [facility]/pharmacy #1972, Partial fill [...] 17:59:00 EST, Aerosol, Route to Pharmacy Electronically, [id number], [facility]/pharmacy #1972, 160... Start Date: 09/08/21 [...] # 30 capsule, 5 Refills, [facility], 160.02, cm, 07/05/21 10:30:00EST, Height, 85, kg, [...] Active *Joseph Resendez, [facility], [facility] [phone](Confirmed) Active Dyan Streeter [facility] [place] 2Case Manager Of Corporate [place] ([facility]); Psychiatrist - Dr Konstantin Narvaez 3admitted at adult partial hospitalization program (adult intensive short term out-pt psychiatric program). 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 BRCA1/2 negative,seen by genetics 6follow up at [facility] GI - Dr Richey. Multiple endoscopies, all normal. Other diagnosis is Non-ulcer dyspepsia Social History Social History Type Response Smoking Status Never smoker entered on: 02/07/14 Sex Female
--- OUTSIDE RECORDS SUMMARY | 2024-04-05 15:32 | XMS_ITS | Continuity of Care Document ---
Author Organization [facility] Address [address] [place] [address]- Care Team Providers Care Automatic Operator Name Role Phone Mitch Lopez Primary Care Physician [phone] [facility] 04/15/21 - 05/15/[address] Attending Physician: Jana Mercado Admitting Physician: AdmJana [...] Patient Refuses 1Result Comment: Received at [facility] on [address] 2Admin Note: VIS given 3Admin Note: Administered at [facility] on [facility] in [place]. 4Location History: [facility] [...] each, 0 Refills, 04/14/21 19:19:00 EDT, [facility]/pharmacy #1972, INHALE 2 PUFFS EVERY 6 HOURS NEEDED FOR WHEEZING/SHORTNESS OF BREATH, 160.02, cm, 04/14/21 14... Start Date: 04/14/21 Status: Ordered Azithromycin 5 Day Dose Pack 250 mg oral tablet See Instructions, as directed on package labeling, # 6 tablet, 0 Refills, Maintenance, 05/05/21 9:14:00 EDT, [facility]/pharmacy #1972, Partial fill upon patient [...] 05/19/20 16:20:00 EDT, Route to Pharmacy Electronically, [id number], [facility]/pharmacy#1972, 160.02, cm, 04/28/20 13:40:00 EDT, Height, 9... Start Date: 05/19/20 Stop Date: 11/15/20 Status: Ordered ProAir HFA 90 mcg/inh inhalation aerosol with adapter 2, puffs, Inhalation, Every 6 hours, PRN, # 1 each, Refills 5, Tot. Refills 5, Maintenance, 06/16/20 18:28:00 EST, Route to Pharmacy Electronically, [id number], [facility]/pharmacy#1972, 160.02, cm, 05/27/20 13:10:00 EDT, Height, [...] Refills, Soft Stop, 10/07/20 9:06:00 EST, [facility]/pharmacy #1972, Partial fill upon patient request if the prescription is for a schedule II opioid drug., 160.... Start Date: 10/07/20 Status: Ordered Symbicort 160mcg/4.5mcg Inhaler INHALE 2 PUFFS TWICE A DAY Start Date: 05/05/21 Status: Ordered verapamil 180 mg oral capsule, extended release 1 capsule, By Mouth, Daily, # 30 capsule, 5 Refills, Maintenance, 02/04/21 9:28:00 EDT, [facility], 160.02, cm, 01/26/21 9:12:00 EDT, Height, 88.8, [...] Resendez, [facility], ICP [phone](Confirmed) Active 1Jantoinette Streeter [facility] [place] 2Case Diesel Power Shovel Operator Parish rPoctor ([facility]); Psychiatrist - Dr Konstantin Narvaez 3admitted at adult partial hospitalization program (adult intensive short term out-pt psychiatric program). 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 BRCA1/2 negative,seen by genetics 6follow up at [facility] GI - Dr Richey. Multiple endoscopies, all normal. Other diagnosis is Non-ulcer dyspepsia Social History Social History Type Response Smoking Status Never smoker entered on: 02/07/14 Sex Female
--- OUTSIDE RECORDS SUMMARY | 2024-04-05 15:32 | XMS_ITS | Continuity of Care Document ---
Author Organization [facility] Address [address] [place] [address]- Care Team Providers Care Wire Spring Relay Adjuster Name Role Phone Mitch Lopez Primary Care Physician [phone] [facility] 09[facility] - 11/10/22 [facility] [address] [place] [address] Attending Physician: Mitch Lopez Admitting Physician: Mitch [...] Given Patient Refuses 1Admin Note: Administered at [facility] on [facility] in [place]. 2Location History: [facility] pharmacy 3Result Comment: [06/27/2014] PT HAD AT [facility] 4Admin Note: VIS GIVEN VIS DATE 01/30/2012 5Admin Note: flulaval vis given vis date 02/22/2011 6Admin Note: vis given 03/09/10 7Result Comment: Received at [facility] on [facility] 8Admin Note: VIS [...] each, 0 Refills, Maintenance, 10/31/22 16:33:00 EDT, [facility]/pharmacy #1972, Partial fill [...] patch, 1 Refills, Maintenance, 07/07/22 18:54:00 EST, [facility] 65266, 30, APPLY 1 PATCH TOPICALLY DAILY NEEDED [...] Refills, Maintenance, 09/26/22 8:34:00 EST, [facility], 161, cm, 09/19/22 9:35:00 EST, Height, 85, kg, 09/16/22 6:46:00 EST, Dry Weight Start Date: 09/26/22 Status: Ordered Premarin 0.3 mg oral tablet 1 tablet = 0.3 mg, By Mouth, Daily, # 30 tablet, 11 Refills, Maintenance, 07/12/22 14:20:00 EST, [facility]/pharmacy #1972, Partial fill upon [...] kg, 2... Start Date: 06/07/22 Status: Ordered Symbicort 160mcg/4.5mcg Inhaler 2, puffs, Inhalation, 2 times a day, rinse mouth and throat after use, # 10.2 Gm, Refills 11, Tot. Refills 11, Maintenance, 10/21/22 15:43:00 EDT, Aerosol, Route to Pharmacy Electronically, [id number], [facility]/pharmacy #1972, 161... Start Date: 10/21/22 Status: [...] Active OCD Confirmed Active *Joseph Resendez, Golf Professional, ICP [phone] Confirmed Active 1Jantoinette Streeter [facility] [place] [facility] [place] 2Case Post Adoption Coordinator [place] ([facility]); Psychiatrist - [...] Professional Member Role: PCP Address: Address: [address] [place] [address] [place] [address]- Care Team Related Persons Name: GABINO CASTANEDA Address: home [address] [place] [address] Name: JERROD BEAUCHAMP Address: [place], [place] Name: BRE MIRANDA Address: home [address] [place] [phone] Name: ALEYDA BEE Address: home [address] [place] [address] Name: ALEYDA BEE Address: home [address] [place] [address] Name: ROMIE PUENTES Address: home [address] [place] [address]
--- OUTSIDE RECORDS SUMMARY | 2024-04-05 15:32 | XMS_ITS | Continuity of Care Document ---
Author Organization [facility] Address [address] [place] [address]- Care Team Providers Care Feather Curling Machine Operator Name Role Phone Mitch Lopez Primary Care Physician [facility] 09[facility]22 - 12/04/22 [facility] [address] [place] [address]- Attending Physician: Not on Staff, Attending MD [...] Note: Administered at [facility] on [facility] in [place]. 2Location History: [facility] pharmacy 3Result Comment: [06/27/2014] PT HAD AT [facility] 4Admin Note: VIS GIVEN VIS DATE 01/30/2012 5Admin Note: flulaval vis given vis date 02/22/2011 6Admin Note: vis given 03/09/10 7Result Comment: Received at [facility] on [facility] 8Admin Note: VIS given 9Admin Note: 2nd [...] patch, 1 Refills, Maintenance, 07/07/22 18:54:00 EST, [facility] 17952, 30, APPLY 1 PATCH TOPICALLY DAILY NEEDED [...] 10/31/22 16:24:00 EDT, Route to Pharmacy Electronically, [facility]/pharmacy #1972, Partial fill upon patien... Start Date: 10/31/22 Status: Ordered oxyCODONE 5 mg oral capsule See Instructions, PRN as needed for pain, 1 capsule By Mouth Every 4-6 hours, 0 Refills, Maintenance, 09/16/22 6:43:00 EST, Capsule, Partial fill upon patient request if the prescription is for a schedule II opioid drug. Start Date: 09/16/22 Status: Ordered predniSONE 20 mg oral tablet 2 tablet = 40 mg, By Mouth, Daily, for 5 days, with food or milk, # 10 tablet, 0 Refills, Acute 12/07/22 17:33:00 EDT, 12/02/22 17:33:00 EDT, [facility]/pharmacy #1972, Partial fill upon patient request if the prescription is for a schedule II opioid drug.,... Start Date: 12/02/22 Stop Date: 12/07/22 Status: Ordered Premarin 0.3 mg oral tablet [...] 19:11:00 EDT, Aerosol, Route to Pharmacy Electronically, [id number], [facility], 161... Start Date: 11/24/22 Status: [...] Confirmed Active OCD Confirmed Active *Joseph Resendez, Small Order Cutter, ICP [phone] Confirmed Active 1Jantoinette Streeter [facility] [place] [facility] [place] 2Case Boat Cleaner [place] ([facility]); Psychiatrist [...] Associate Professional Member Role: PCP Address: Address: [address] [place] [address] [place] [address]- Care Team Related Persons Name: TONYAGABINO Address: home [address] [place] [address] Name: JERROD BEAUCHAMP Address: [place], [place] Name: BRE MIRANDA Address: [address] [place] [address] Name: ALEYDA BEE Address: [address] [place] [address] Name: ALEYDA BEE Address: home [address] [place] [address] Name: ROMIE PUENTES Address: home [address] [place] [address]
--- OUTSIDE RECORDS SUMMARY | 2024-04-05 15:32 | XMS_ITS | Continuity of Care Document ---
Author Organization [facility] Address [address] [place] [address]- Care Team Providers Care Victorian Literature Professor Name Role Phone Mitch Lopez Primary Care Physician [phone] [facility] 10[facility] - 12/23/[address] [address] Attending Physician: Mitch Lopez Admitting Physician: [...] Administered at [facility] on [facility] in [place]. 2Location History: [facility] 3Result Comment: [06/27/2014] PT HAD AT [facility] 4Admin Note: VIS GIVEN VIS DATE 01/30/2012 5Admin Note: flulaval vis given vis date 02/22/2011 6Admin Note: vis given 03/09/10 7Result Comment: Received at [facility] on [facility] 8Admin Note: VIS given 9Admin [...] a day, # 120 tablet, 2 Refills, [facility] STORE 54477, 160, cm, 11/22/21 10:23:00 EDT, Height, 88.2, [...] 09/07/21 11:12:00 EST, Route to Pharmacy Electronically, [id number], [facility]/pharmacy #1972, 160.02, cm, 09/07/21 10:18:00 EST, Height,... Start Date: 09/07/21 Stop Date: 09/02/22 Status: Ordered Spiriva Respimat 1.25 mcg/inh inhalation aerosol 2 puffs, Inhalation, Daily, # 1 each, 11 Refills, Maintenance, 09/07/21 11:12:00 EST, [facility]/pharmacy #1972, Partial fill upon patient request if the prescription is for a schedule II opioid drug., 160.02, cm, 09/07/21 10:18:00 EST, Height, 85, kg, 03/11... Start Date: 09/07/21 Status: Ordered SUMAtriptan 50 mg oral tablet 1 tablet = 50 mg, By Mouth, Once, PRN Headache, may repeat dose once in 2 hours, # 18 tablet, 1 Refills, Soft Stop, 10/07/20 9:06:00 EST, [facility]/pharmacy #1972, Partial fill upon patient request if the prescription is for a schedule II opioid drug., 160.... Start Date: 10/07/20 Status: Ordered Symbicort 160mcg/4.5mcg Inhaler 2, puffs, Inhalation, 2 times a day, rinse mouth and throat after use, # 10.2 Gm, Refills 11, Tot. Refills 11, Maintenance, 09/08/21 17:59:00 EST, Aerosol, Route to Pharmacy Electronically, [id number], [facility]/pharmacy #1972, 160... Start Date: 09/08/21 Status: [...] # 30 capsule, 5 Refills, [facility], 160.02, cm, 07/05/21 10:30:00EST, Height, 85, kg, [...] Active *Joseph Resendez, Care Coord inator, ICP [phone](Confirmed) Active 1Jantoinette Streeter [facility] [place] [facility] [place] 2Case Molder Offbearer [place] ([facility]); Psychiatrist - Dr Konstantin Narvaez 3admitted [...]
--- OUTSIDE RECORDS SUMMARY | 2024-04-05 15:32 | XMS_ITS | Continuity of Care Document ---
Author Organization [facility] Address [address] [place] [address]- Care Team Providers Care Grain Oilseed Or Pasture Farm Worker Name Role Phone Mitch Lopez Primary Care Physician [facility]): [facility] - 11/14/19 [facility] [address] [place] [address]- [facility] Encounter Diagnosis Chronic back pain(Discharge Diagnosis) [...] Patient Refuses 1Admin Note: Administered at [facility] on [address] in [place]. 2Location History: [facility] [...] 07/25/19 14:29:00 EST, Route to Pharmacy Electronically, [id number], [facility]/pharmacy#1972, 158, cm, 07/25/19 13:55:00 EST, Height, [...] 11/22/19 12:00:00 EDT, 10/11/19 16:15:00 EDT, Tablet, [facility]/pharmacy... Start Date: 10/11/19 Stop Date: 11/22/19 Status: Ordered verapamil 100 mg oral capsule, extended release See Instructions, 1 CAPSULE BY MOUTH DAILY AT BEDTIME,X90 DAYS, # 30 capsule, 11 Refills, Maintenance, [facility], 160.02, cm, 10/11/19 15:24:00 EDT, Height, 85.91, [...] Chronic migraine(Confirmed) Active OCD(Confirmed) Active Dyan Streeter [facility] 2Case Accelerator Systems Director Parish Proctor ([facility] [...] BRCA1/2 negative,seen by genetics 6follow up at [facility] GI - Dr Richey. Multiple endoscopies, all normal. Other diagnosis is Non-ulcer dyspepsia Diagnosis Diagnosis Type Effective Dates Health Status Cl inical Service Informant Chronic back pain Discharge Diagnosis 06/22/19 Social History Social History Type Response Smoking Status Never smoker entered on: 02/07/14 Sex Female
--- OUTSIDE RECORDS SUMMARY | 2024-04-05 15:32 | XMS_ITS | Continuity of Care Document ---
Author Organization [facility] Address [address] [place] [address]- Care Team Providers Care Gis Professor Name Role Phone Mitch Lopez Primary Care Physician [facility]counter [facility] Date[facility]): 01/11/23 - 02/10/23 [facility] [address] [place] [address]- Allergies, Adverse Reactions, Alerts Substance Reaction Severity [...] at [facility] on [facility] in [place]. 2Location History: [facility] 3Result Comment: [06/27/2014] PT HAD AT [facility] 4Admin Note: VIS GIVEN VIS DATE 01/30/2012 5Admin Note: flulaval vis given vis date 02/22/2011 6Admin Note: vis given 03/09/10 7Result Comment: Received at [facility] on [facility] 8Admin Note: VIS given 9Admin Note: [...] patch, 1 Refills, Maintenance, 07/07/22 18:54:00 EST, [facility] STORE 86859, 30, APPLY 1 PATCH TOPICALLY DAILY NEEDED [...] 10/31/22 16:24:00 EDT, Route to Pharmacy Electronically, [facility]/pharmacy #1972, Partial fill upon patien... Start [...] tablet, 11 Refills, Maintenance, 07/12/22 14:20:00 EST, [facility]/pharmacy #1972, Partial fill upon patient request if the prescription is for a schedule II opioid drug., 160, cm, 07/12/22 13:43:00 EST, Height, 88.2,... Start Date: 07/12/22 Status: Ordered Spiriva Respimat 1.25 mcg/inh inhalation aerosol 2 puffs, Inhalation, Daily, # 1 each, 11 Refills, Maintenance, 11/21/22 12:15:00 EDT, [facility]/pharmacy #1972, [...] 19:11:00 EDT, Aerosol, Route to Pharmacy Electronically, [id number], [facility]/pharmacy #1972, 161... Start Date: 11/24/22 Status: [...] Confirmed Active OCD Confirmed Active *Joseph Resendez, Public Health Assistant, ICP [phone] Confirmed Active 1Jantoinette Streeter [facility] [place] 2Case Die Maker Trim Parish Proctor ([facility]); Psychiatrist [...] Professional Member Role: PCP Address: Address: [address] [place] [address] [place] [address]- [place] Care Team Related Persons Name: GABINO CASTANEDA Address: home [address] [place] [id number] Name: JERROD BEAUCHAMP Address: [place], [place] Name: BRE MIRANDA Address: home [address] [place] [address] Name: ALEYDA BEE Address: home [address] [place] [address] Name: ALEYDA BEE Address: home [address] [place] [address] Name: ROMIE PUENTES Address: home [address] [place] [address]
--- OUTSIDE RECORDS SUMMARY | 2024-04-05 15:32 | XMS_ITS | Continuity of Care Document ---
Author Organization [facility] Address [address] [place] [address], [address] [place] [address]- Care Team Providers Care Veneer Trimmer Name Role Phone Mitch Lopez Primary Care Physician [phone] [facility]counter [facility]): 08/04/21 - 09/24/21 [facility] [address] [place] [address], [address] [place], [place] [address] Attending Physician: Deysi Gomez DO Allergies, Adverse [...] at [facility] on [facility] [address] 2Admin Note: VIS given 3Admin Note: Administered at [facility] on [facility] in [place]. 4Location History: [facility] 5Result Comment: [06/27/2014] PT HAD AT [facility] 6Admin Note: VIS GIVEN VIS DATE 01/30/2012 [...] 42.5 Gm, 2 Refills, Maintenance, 09/08/20 14:57:00EST, [facility]/pharmacy #1972, 160.02, cm, 07/29/20 16:36:00 EST, [...] A DAY, # 120 tablet, 2 Refills, [facility] STORE 96241, 160.02, cm, 07/05/21 10:30:00 EST, Height, 85, kg, 03/11/21 17:07:00 EDT, Dry Weight Start Date: 08/22/21 Status: Ordered meloxicam 7.5 mg oral tablet 1 tablet = 7.5 mg, By Mouth, Daily, for arthritis pain take with food, # 30 tablet, 0 Refills, Maintenance, 09/07/21 11:08:00 EST, [facility]/pharmacy #1972, Partial [...] 09/07/21 11:12:00 EST, Route to Pharmacy Electronically, [id number], [facility]/pharmacy #1972, 160.02, cm, 09/07/21 10:18:00 EST, Height,... Start Date: 09/07/21 Stop Date: 09/02/22 Status: Ordered Spiriva Respimat 1.25 mcg/inh inhalation aerosol 2 PUFFS INHALATION ONCE A DAY 30 DAYS Start Date: 05/05/21 Status: Ordered Spiriva Respimat 1.25 mcg/inh inhalation aerosol 2 puffs, Inhalation, Daily, # 1 each, 11 Refills, Maintenance, 09/07/21 11:12:00 EST, [facility]/pharmacy #1972, Partial [...] 1 Refills, Soft Stop, 10/07/20 9:06:00 EST, [facility]/pharmacy #1972, Partial [...] 17:59:00 EST, Aerosol, Route to Pharmacy Electronically, [id number], [facility]/pharmacy #1972, 160... Start Date: 09/08/21 Status: [...] # 30 capsule, 5 Refills, [facility], 160.02, cm, 07/05/21 10:30:00EST, Height, 85, kg, [...] Active OCD(Confirmed) Active *Joseph Resendez, Care Coord [facility], ICP [phone](Confirmed) Active 1Jantoinette Streeter [facility] [place] 2Case Architectural Technologist Parish Proctor ([facility]); Psychiatrist [...]
--- OUTSIDE RECORDS SUMMARY | 2024-04-05 15:32 | XMS_ITS | Continuity of Care Document ---
Author Organization [facility] Address [address] [place] [address]- Care Team Providers Care Textbook Associate Name Role Phone Mitch Lopez Primary Care Physician [facility]counter [facility] Date(s): 10/17/21 - 10/24/21 [facility] [address] [place] [address]- Attending Physician: Bakari Rollins DO Referring Physician: [...] Given Patient Refuses 1Result Comment: Received at [facility] on [facility] [address] 2Admin Note: VIS given 3Admin Note: Administered at [facility] on [facility] in [place]. 4Location History: [facility] pharmacy 5Result Comment: [06/27/2014] PT HAD AT [facility] 6Admin Note: VIS GIVEN VIS DATE [...] 10/14/21 18:29:00 EDT, Route to Pharmacy Electronically, [facility]/pharmacy #1972, Partial fill upon patient request if the prescription is for a sched... Start Date: 10/14/21 Stop Date: 10/19/21 Status: Ordered buPROPion 150 mg/24 hours (XL) oral tablet, extended release TAKE 1 TABLET BY MOUTH EVERY DAY Start Date: 05/05/21 Status: Ordered [facility] MELATONIN 3 MG TABLET [facility] MELATONIN 3 MG TABLET, 1, tablet, By Mouth, Daily at bedtime, # 30 tablet, 2 Refills, Maintenance, 02/17/21 19:34:00 EDT, 160.02, cm, 02/16/21 17:20:00 EDT, Height, 88.8, kg, 11/24/20 15:58:00 EDT, Dry Weight Start Date: 02/17/21 Status: Ordered Estrace Vaginal Cream 0.1 mg/g = 1 Gm, Vaginally, Every Monday and , # 42.5 Gm, 2 Refills, Maintenance, 09/08/20 14:57:00EST, [facility]/pharmacy #1972, 160.02, cm, 07/29/20 16:36:00 EST, [...] A DAY, # 120 tablet, 2 Refills, [facility] STORE 17783, 160.02, cm, 07/05/21 10:30:00 EST, Height, 85, kg, 03/11/21 17:07:00 EDT, Dry Weight Start Date: 08/22/21 Status: Ordered meloxicam 7.5 mg oral tablet 1 tablet, By Mouth, Daily, FOR ARTHRITIS PAIN. TAKE WITH FOOD, # 30 tablet, 1 Refills, [facility] STORE 21953, 160.02, cm, 09/16/21 14:31:00 EST, Height, 85, kg, 03/11/21 17:07:00 EDT, Dry Weight Start Date: 09/30/21 Status: Ordered montelukast 10 mg oral tablet TAKE 1 TABLET BY MOUTH EVERY DAY IN THE EVENING Start Date: 05/05/21 Status: Ordered naproxen 500 mg oral tablet 1 tablet = 500 mg, By Mouth, 2 times a day, for 10 days, # 20 tablet, 0 Refills, Acute 10/27/21 10:33:00 EDT, 10/17/21 10:33:00 EDT, Tablet, [facility], Partial fill upon patient request if the prescription is for a schedule II opioid drug., 1... Start Date: 10/17/21 Stop Date: 10/27/21 Status: Ordered ProAir HFA 90 mcg/inh inhalation aerosol with adapter 2, puffs, Inhalation, Every 6 hours, PRN, # 1 each, Refills 11, Tot. Refills 11, Maintenance, 09/07/21 11:12:00 EST, Route to Pharmacy Electronically, [id number], [facility]/pharmacy #1972, 160.02, cm, 09/07/21 10:18:00 EST, [...] 17:59:00 EST, Aerosol, Route to Pharmacy Electronically, [id number], [facility]/pharmacy #1972, 160... Start Date: 09/08/21 Status: Ordered Tessalon Perles 100 mg oral capsule 1 capsule = 100 mg, By Mouth, 3 times a day, PRN Cough, # 20 capsule, 0 Refills, Maintenance, 09/16/21 15:25:00 EST, [facility]/pharmacy #1972, Partial fill upon patient request if the prescription is for aschedule II opioid drug., 160.02, cm, 09/16/21 14:3... Start Date: 09/16/21 Status: Ordered verapamil 180 mg oral capsule, extended release 1 capsule, By Mouth, Daily, # 30 capsule, 5 Refills, [facility], 160.02, cm, 07/05/21 10:30:00EST, Height, 85, kg, [...] Obese class I(Confirmed) Active OCD(Confirmed) Active *Joseph Rodriguezdick, Care Coord avril, ICP [phone](Confirmed) Active 1Jantoinette Streeter [facility] [place] 2Case Oil Burner Parish Proctor ([facility]); Psychiatrist - Dr Konstantin Narvaez 3admitted at adult partial hospitalization program (adult intensive short term out-pt psychiatric program). 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 BRCA1/2 negative,seen by genetics 6follow up at [facility] GI - Dr Richey. Multiple endoscopies, all normal. Other diagnosis is Non-ulcer dyspepsia Vital Signs Most recent to oldest [Reference Range]: 1 Height 160.02 cm (10/17/21 10:05 AM) Oxygen Saturation [94-100 %] 100 % (10/17/21 10:05 AM) Pulse Rate [55-90 bpm] 70 bpm (10/17/21 10:05 AM) Blood Pressure [90-138/55-84 mm Hg] 163/ 82mm Hg *H* (10/17/21 10:05 AM) Temperature [96.8-100.4 DegF] 98.6 DegF (10/17/21 10:05 AM) Mode of Delivery (Oxygen) Room air (10/17/21 10:05 AM) Blood pressure sites Arm, right (10/17/21 10:05 AM) Temperature Route Temporal (10/17/21 10:05 AM) Social History Social History Type Response Smoking Status Never smoker entered on: 02/07/14 Sex Female
--- OUTSIDE RECORDS SUMMARY | 2024-04-05 15:32 | XMS_ITS | Continuity of Care Document ---
Author Organization [facility] Address [address] [place] [address]- Care Team Providers Care Forming Mill Operator Name Role Phone Mitch Lopez Primary Care Physician [phone] [facility]counter [facility]s): 10/28/23 - 11/27/23 [facility] [address] [facility] [address] [place], [place] [phone] Allergies, Adverse Reactions, Alerts Substance Reaction Severity Status trimethoprim Urticaria Active Bactrim bruising Active Compazine unknown Active prochlorperazine Unknown Active sulfa drugs Breathing [...] Note: Administered at [facility] on [facility] in [place]. 2Location History: [facility] pharmacy 3Result Comment: [06/27/2014] PT HAD AT [facility] 4Admin Note: VIS GIVEN VIS DATE 01/30/2012 5Admin Note: flulaval vis given vis date 02/22/2011 6Admin Note: vis given 03/09/10 7Result Comment: Received at [facility] on [facility] 8Admin Note: VIS given 9Admin Note: [...] each, 11 Refills, Maintenance, 10/23/23 12:15:00 EDT, [facility]/pharmacy #1972, Partial fill upon patient [...] opioid drug. Start Date: 09/14/22 Status: Ordered [facility] MELATONIN 3 MG TABLET [facility] [...] Gm, 3 Refills, Maintenance, 08/28/23 14:07:00 EST, [facility]/pharmacy #1972, 25, 1 application Topically 4 times a day,PRN: NEEDED,Instr:MODERATE PAIN., 161, cm, 08/16/23 11:00:... Start Date: 08/28/23 Status: Ordered hydrOXYzine hydrochloride 25 mg oral tablet 1 tablet, By Mouth, 2 times a day, PRN NEEDED FOR ANXIETY, # 60 tablet, 2 Refills, Maintenance, 10/17/23 11:01:00 EDT, [facility] STORE 31310, 161, cm, 09/29/23 11:18:00 EST, Height, 82.1, [...] 03/31/23 18:55:00 EDT, [facility] STORE 74602, 161, cm, 03/29/23 14:07:00 EDT, Height, 85, [...] Confirmed Active OCD Confirmed Active *Joseph Resendez, Tax Senior Associate, ICP [phone] Confirmed Active 1Jantoinette Streeter [facility] [place] 2Case Gas Processing Plant Operator Parish Proctor ([facility]); Psychiatrist - Dr Konstantin Narvaez 3admitted [...] Professional Member Role: PCP Address: Address: [address] [place] [address] [place] [address]- Care Team Related Persons Name: GABINO CASTANEDA Address: home [address] [place] [address] Name: JERROD BEAUCHAMP Address: [place], [place] Name: BRE MIRANDA Address: home [address] [place] [address] Name: ALEYDA BEE Address: home [address] [place] [address] Name: ALEYDA BEE Address: [address] [place] [address] Name: ROMIE PUENTES Address: home [address] [place] [address]
--- OUTSIDE RECORDS SUMMARY | 2024-04-05 15:32 | XMS_ITS | Continuity of Care Document ---
Author Organization [facility] Address [address] [place] [address]- Care Team Providers Care Guard Chief Name Role Phone Mitch Lopez Primary Care Physician [phone] [facility](s): 06/03/19 - 07/24/19 [facility] [address] [place] [address]- [facility] Attending Physician: Not on Staff, Attending MD [...] Note: Administered at [facility] on [address] in [place]. 2Location History: [facility] pharmacy 3Result Comment: [06/27/2014] PT HAD AT [facility] 4Admin Note: VIS GIVEN VIS [...] Maintenance,04/11/19 15:43:33 EDT, Route to Pharmacy Electronically, [id number], [facility]/pharmacy #1972 Start Date: 04/11/19 Stop [...] 04/11/19 15:43:08 EDT, Route to Pharmacy Electronically, [id number], [facility]/pharmacy#1972 Start Date: 04/11/19 Stop Date: [...] Chronic migraine(Confirmed) Active OCD(Confirmed) Active Dyan Streeter [facility] [place] 2Case Tube Splicer Parish Proctor ([facility]); Psychiatrist [...] BRCA1/2 negative,seen by genetics 6follow up at [facility] GI - Dr Richey. Multiple endoscopies, all normal. Other diagnosis is Non-ulcer dyspepsia Social History Social History Type Response Smoking Status Never smoker entered on: 02/07/14 Sex Female
--- OUTSIDE RECORDS SUMMARY | 2024-04-05 15:32 | XMS_ITS | Continuity of Care Document ---
Author Organization [facility] Address [address] [place] [address], [address] [place] [address]- Care Team Providers Care Identification Technician Name Role Phone Mitch Lopez Primary Care Physician [facility] Date(s): 09/15/21 - 09/22/21 [facility] [address] [place] [address], [address] [place] [address]- Attending Physician: Deysi Gomez DO Referring Physician: [...] Given Patient Refuses 1Result Comment: Received at [facility] on [facility] [address] 2Admin Note: VIS given 3Admin Note: Administered at [facility] on [address] [facility] [address] in [place]. 4Location History: [facility] 5Result Comment: [06/27/2014] PT HAD AT [facility] 6Admin Note: VIS GIVEN VIS DATE [...] 42.5 Gm, 2 Refills, Maintenance, 09/08/20 14:57:00EST, [facility]/pharmacy #1972, 160.02, cm, 07/29/20 16:36:00 EST, [...] A DAY, # 120 tablet, 2 Refills, [facility] STORE 69320, 160.02, cm, 07/05/21 10:30:00 EST, Height, 85, kg, 03/11/21 17:07:00 EDT, Dry Weight Start Date: 08/22/21 Status: Ordered meloxicam 7.5 mg oral tablet 1 tablet = 7.5 mg, By Mouth, Daily, for arthritis pain take with food, # 30 tablet, 0 Refills, Maintenance, 09/07/21 11:08:00 EST, [facility], Partial fill upon patient [...] 09/07/21 11:12:00 EST, Route to Pharmacy Electronically, [id number], [facility], 160.02, cm, 09/07/21 10:18:00 EST, Height,... Start Date: 09/07/21 Stop Date: 09/02/22 Status: Ordered Spiriva Respimat 1.25 mcg/inh inhalation aerosol 2 PUFFS INHALATION ONCE A DAY 30 DAYS Start Date: 05/05/21 Status: Ordered Spiriva Respimat 1.25 mcg/inh inhalation aerosol 2 puffs, Inhalation, Daily, # 1 each, 11 Refills, Maintenance, 09/07/21 11:12:00 EST, [facility]/pharmacy #1972, Partial fill upon [...] 17:59:00 EST, Aerosol, Route to Pharmacy Electronically, [id number], [facility]/pharmacy #1972, 160... Start Date: 09/08/21 Status: [...] # 30 capsule, 5 Refills, [facility], 160.02, cm, 07/05/21 10:30:00EST, Height, 85, kg, [...] Active OCD(Confirmed) Active *Joseph Resendez, [facility], ICP [phone](Confirmed) Active 1Jantoinette Streeter [facility] [place] 2Case Family Support Worker Parish Proctor ([facility]); Psychiatrist - Dr Konstantin Narvaez 3admitted at adult partial hospitalization program (adult intensive short term out-pt psychiatric program). 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 BRCA1/2 negative,seen by genetics 6follow up at [facility] GI - Dr Richey. Multiple endoscopies, all normal. Other diagnosis is Non-ulcer dyspepsia Vital Signs Most recent to oldest [Reference Range]: 1 Height 160.02 cm (09/15/21 12:43 PM) Weight 77 kg (09/15/21 12:43 PM) Body Mass Index [18.5-24.99] 30.07 *>HHI* (09/15/21 12:43 PM) Social History Social History Type Response Smoking Status Never smoker entered on: 02/07/14 Sex Female
--- OUTSIDE RECORDS SUMMARY | 2024-04-05 15:32 | XMS_ITS | Continuity of Care Document ---
Author Organization [facility] Address [address] [place] [address]- Care Team Providers Care Conceptor Name Role Phone Mitch Lopez Primary Care Physician Encounter [facility] Date(s): 01/30/24 - 02/29/[address] [address] Attending Physician: AdmJana leonardo Admitting Physician: AdmtrJana [...] 18 07/18/06 Given 1Admin Note: Administered at [facility] on [facility] in [place]. 2Location History: [facility] pharmacy 3Result Comment: [06/27/2014] PT HAD AT [facility] 4Admin Note: VIS GIVEN VIS DATE 01/30/2012 5Admin Note: flulaval vis given vis date 02/22/2011 6Admin Note: vis given 03/09/10 7Result Comment: Received at [facility] on [facility] 8Admin Note: VIS given [...] Gm, 3 Refills, Maintenance, 08/28/23 14:07:00 EST, [facility]/pharmacy #1972, 25, 1 application Topically 4 times a day,PRN: NEEDED,Instr:MODERATE PAIN., 161, cm, 08/16/23 11:00:... Start Date: 08/28/23 Status: Ordered hydrOXYzine hydrochloride 25 mg oral tablet 1 tablet, By Mouth, 2 times a day, PRN NEEDED FOR ANXIETY, # 180 tablet, 0 Refills, Maintenance,01/19/24 9:05:00 EDT, [facility] STORE 42014, 161, cm, 01/16/24 16:04:00 EDT, Height, 82.1, [...] tablet, 0 Refills, Maintenance, 03/31/23 18:55:00 EDT, [facility] STORE 72515, 161, cm, 03/29/23 14:07:00 EDT, Height, 85, [...] Refills, Maintenance, 02/13/24 9:40:00 EDT, [facility], 161, cm, 01/16/24 16:04:00 EDT, Height, 82.1, [...] Confirmed Active OCD Confirmed Active *Joseph Resendez, Non Destructive Testing Technician, [facility] [phone] Confirmed Active 1Jantoinette Streeter [facility] [place] 2Case Field Reviewer Parish Proctor ([facility]); Psychiatrist - Dr Konstantin Narvaez 3admitted [...] Professional Member Role: PCP Address: Address: [address] [place] [address] [place] [address]- Care Team Related Persons Name: GABINO CASTANEDA Address: home [address] [place] [address] Name: JERROD BEAUCHAMP Address: [place], [place] Name: BRE MIRANDA Address: [address] [place] [address] Name: ALEYDA BEE Address: [address] [place] [address] Name: ALEYDA BEE Address: home [address] [place] [address] Name: ROMIE PUENTES Address: home [address] [place] [address]
--- OUTSIDE RECORDS SUMMARY | 2024-04-05 15:32 | XMS_ITS | Continuity of Care Document ---
Author Organization [facility] Address [address] [place] [address]- Care Team Providers Care Bath Mix Operator Name Role Phone Mitch Lopez Primary Care Physician [facility] 07/21/21 - 09/12/21 [facility] [address] [place] [address]- Attending Physician: Not on Staff, Attending MD [...] Comment: Received at [facility] on [address] 2Admin Note: VIS given 3Admin Note: Administered at [facility] on [address] in [place]. 4Location History: [facility] [...] Gm, 2 Refills, Maintenance, 09/08/20 14:57:00EST, [facility]/pharmacy #1972, 160.02, cm, 07/29/20 16:36:00 EST, [...] A DAY, # 120 tablet, 2 Refills, [facility] STORE 43324, 160.02, cm, 07/05/21 10:30:00 EST, Height, 85, kg, 03/11/21 17:07:00 EDT, Dry Weight Start Date: 08/22/21 Status: Ordered meloxicam 7.5 mg oral tablet 1 tablet = 7.5 mg, By Mouth, Daily, for arthritis pain take with food, # 30 tablet, 0 Refills, Maintenance, 09/07/21 11:08:00 EST, [facility]/pharmacy #1972, Partial fill [...] 09/07/21 11:12:00 EST, Route to Pharmacy Electronically, [id number], [facility]/pharmacy #1972, 160.02, cm, 09/07/21 [...] 17:59:00 EST, Aerosol, Route to Pharmacy Electronically, [id number], [facility]/pharmacy #1972, 160... Start Date: 09/08/21 Status: Ordered verapamil 180 mg oral capsule, extended release 1 capsule, By Mouth, Daily, # 30 capsule, 5 Refills, [facility] STORE 14716, 160.02, cm, 07/05/21 10:30:00EST, Height, 85, kg, [...] Active *Joseph Resendez, Care Coord inator, ICP [phone](Confirmed) Active 1Jantoinette Streeter [facility]iat[facility] [place] 2Case Energy Broker [place] ([facility]); Psychiatrist - Dr [...]
--- OUTSIDE RECORDS SUMMARY | 2024-04-05 15:32 | XMS_ITS | Continuity of Care Document ---
Author Organization [facility] Address [address] [place] [address]- Care Team Providers Care Etcher Hand Name Role Phone Mitch Lopez Primary Care Physician [phone] Encounter [facility] Date(s): 10/23/23 - 11/22/23 [facility] [address] [place], [place] [address] Attending Physician: Admtr, Ar8 Allergies, Adverse [...] 18 07/18/06 Given 1Admin Note: Administered at [facility] on [facility] in [place]. 2Location History: [facility] pharmacy 3Result Comment: [06/27/2014] PT HAD AT [facility] 4Admin Note: VIS GIVEN VIS DATE 01/30/2012 5Admin Note: flulaval vis given vis date 02/22/2011 6Admin Note: vis given 03/09/10 7Result Comment: Received at [facility] on [facility] 8Admin [...] each, 11 Refills, Maintenance, 10/23/23 12:15:00 EDT, [facility]/pharmacy #1972, Partial fill upon patient request [...] tablet, 2 Refills, Maintenance, 10/17/23 11:01:00 EDT, [facility] STORE 33670, 161, cm, 09/29/23 11:18:00 EST, Height, 82.1, [...] Refills, Maintenance, 03/30/23 21:21:00 EDT, ER Tablet, [facility]/pharmacy #1972, Partial fill upon patient request [...] tablet, 0 Refills, Maintenance, 12/30/22 15:43:00 EDT, [facility]/pharmacy #1972, Partial fill upon patient request [...] 10/31/22 16:24:00 EDT, Route to Pharmacy Electronically, [facility]/pharmacy #1972, Partial fill upon patien... Start Date: 10/31/22 Status: Ordered nabumetone 500 mg oral tablet 1 tablet, By Mouth, 2 times a day, TAKE WITH FOOD., # 60 tablet, 0 Refills, Maintenance, 03/31/23 18:55:00 EDT, [facility] STORE 74332, 161, cm, 03/29/23 14:07:00 EDT, Height, 85, [...] Confirmed Active OCD Confirmed Active *Joseph Resendez, Rental Manager, ICP [phone] Confirmed Active 1Jantoinette Streeter [facility] Psychiatry [place] 2Case Behavioral Health Associate [place] ([facility]); Psychiatrist - [...] Associate Professional Member Role: PCP Address: Address: [address] [place] [address] [place] [address]- Care Team Related Persons Name: GABINO CASTANEDA Address: home [address] [place] [address] Name: JERROD BEAUCHAMP Address: home [place], [place] Name: BRE MIRANDA Address: home [address] [place] [address] Name: ALEYDA BEE Address: home [address] [place] [address] Name: ALEYDA BEE Address: home [address] [place] [address] Name: ROMIE PUENTES Address: home [address] [place] [address]
--- OUTSIDE RECORDS SUMMARY | 2024-04-05 15:32 | XMS_ITS | Continuity of Care Document ---
Author Organization [facility] Address [address] [place] [address]- Care Team Providers Care Biosolids Management Technician Name Role Phone iMtch Lopez Primary Care Physician [facility] 12/17/20 - 01/16/21 [facility] [address] [place] [id number] Allergies, Adverse Reactions, Alerts Substance [...] Given Patient Refuses 1Result Comment: Received at [facility] on [address] 2Admin Note: VIS given 3Admin Note: Administered at [facility] on [address] in [place]. 4Location History: [facility] pharmacy 5Result [...] 0 Refills, Maintenance, 12/04/20 17:24:00 EDT, Tablet, [facility]/pharmacy #1972, Partial fill [...] 42.5 Gm, 2 Refills, Maintenance, 09/08/20 14:57:00EST, [facility]/pharmacy #1972, 160.02, cm, 07/29/20 16:36:00 EST, Height, 92.3, kg, 07/24/20 13:24:00 EST, Dry Weight Start Date: 09/08/20 Status: Ordered Flonase 50 mcg/inh nasal spray 1 sprays, Nares, Both, 2 times a day, # 16 Gm, 0 Refills, Maintenance, 08/08/20 15:21:00 EST, [place], [facility]/pharmacy #1972, Partial fill [...] 05/19/20 16:20:00 EDT, Route to Pharmacy Electronically, [id number], [facility], 160.02, cm, 04/28/20 13:40:00 EDT, Height, 9... Start Date: 05/19/20 Stop Date: 11/15/20 Status: Ordered ProAir HFA 90 mcg/inh inhalation aerosol with adapter 2, puffs, Inhalation, Every 6 hours, PRN, # 1 each, Refills 5, Tot. Refills 5, Maintenance, 06/16/20 18:28:00 EST, Route to Pharmacy Electronically, [id number], [facility]/pharmacy#1972, 160.02, cm, 05/27/20 13:10:00 [...] 1 Refills, Soft Stop, 10/07/20 9:06:00 EST, [facility]/pharmacy #1972, Partial [...] Active *Joseph Resendez, Care Coord inator, ICP [phone](Confirmed) Active 1Jantoinette Streeter [facility] Psychiatry [place] 2Case Rn Ed [place] ([facility]); Psychiatrist - Dr Konstantin [...]
--- OUTSIDE RECORDS SUMMARY | 2024-04-05 15:32 | XMS_ITS | Continuity of Care Document ---
Author Organization [facility] Address [address] [place] [address]- Care Team Providers Care Medical Lab Technician Name Role Phone Mitch Lopez Primary Care Physician [facility] 02/05/21 - 03/07/21 [email or web address] [address] [place], [place] [address] Allergies, Adverse Reactions, Alerts [...] Administered at [facility] on [address] in [place]. 4Location History: [facility] pharmacy 5Result Comment: [06/27/2014] PT HAD AT [facility] 6Admin Note: VIS GIVEN VIS [...] Gm, 0 Refills, Maintenance, 08/08/20 15:21:00 EST, [place], [facility], Partial fill upon patient request [...] 05/19/20 16:20:00 EDT, Route to Pharmacy Electronically, [id number], [facility], 160.02, cm, 04/28/20 13:40:00 EDT, Height, 9... Start Date: 05/19/20 Stop Date: 11/15/20 Status: Ordered ProAir HFA 90 mcg/inh inhalation aerosol with adapter 2, puffs, Inhalation, Every 6 hours, PRN, # 1 each, Refills 5, Tot. Refills 5, Maintenance, 06/16/20 18:28:00 EST, Route to Pharmacy Electronically, [id number], [facility]/pharmacy#1972, 160.02, cm, 05/27/20 [...] 9:28:00 EDT, [facility] STORE 86160, 160.02, cm, 01/26/21 9:12:00 EDT, Height, 88.8, [...] Active *Joseph Resendez, Care Coord inadavid, ICP [phone](Confirmed) Active 1Jantoinette Streeter [facility] Psychiatry [place] 2Case Furniture Repairer [place] Proctor ([facility]); Psychiatrist [...] BRCA1/2 negative,seen by genetics 6follow up at [facility] GI - Dr Richey. Multiple endoscopies, all normal. Other diagnosis is Non-ulcer dyspepsia Social History Social History Type Response Smoking Status Never smoker entered on: 02/07/14 Sex Female
--- OUTSIDE RECORDS SUMMARY | 2024-04-05 15:32 | XMS_ITS | Continuity of Care Document ---
Author Organization [facility] Address [address] [place] [address]- Care Team Providers Care Profile Grinder Name Role Phone Mitch Lopez Primary Care Physician [facility]): 06/29/20 - 07/29/20 [facility] [address] [place] [address]- Allergies, Adverse Reactions, Alerts Substance Reaction Severity [...] Given Patient Refuses 1Result Comment: Received at [facility] on [address] 2Admin Note: VIS given 3Admin Note: Administered at [facility] on [address] in [place]. 4Location History: [facility] pharmacy 5Result Comment: [06/27/2014] PT HAD AT [facility] 6Admin Note: VIS GIVEN VIS DATE [...] Gm, 2 Refills, Maintenance, 03/04/20 12:12:00 EDT, [facility]/pharmacy #1972, 160.02, cm, 03/04/20 11:50:00 [...] 07/15/20 20:01:00 EST, Route to Pharmacy Electronically, [facility]/pharmacy [...] 05/19/20 16:20:00 EDT, Route to Pharmacy Electronically, [id number], [facility]/pharmacy#1972, 160.02, cm, 04/28/20 13:40:00 EDT, Height, 9... Start Date: 05/19/20 Stop Date: 11/15/20 Status: Ordered ProAir HFA 90 mcg/inh inhalation aerosol with adapter 2, puffs, Inhalation, Every 6 hours, PRN, # 1 each, Refills 5, Tot. Refills 5, Maintenance, 06/16/20 18:28:00 EST, Route to Pharmacy Electronically, [id number], [facility]/pharmacy#1972, 160.02, cm, 05/27/20 13:10:00 EDT, [...] drug., 160... Start Date: 07/27/20 Status: Ordered Tylenol Extra Strength 500 mg [...] 30 capsule, 11 Refills, Maintenance, [facility], 160.02, cm, 10/11/19 15:24:00 EDT, Height, 85.91, [...] Active *Joseph Resendez, Care Coord inator, ICP [phone](Confirmed) Active Dyan Streeter [facility] [place] [facility] 2Case Emergency Vehicle Technician [place] ([facility]); Psychiatrist - Dr Konstantin Narvaez [...]
--- OUTSIDE RECORDS SUMMARY | 2024-04-05 15:32 | XMS_ITS | Continuity of Care Document ---
Author Organization [facility] Adult [facility] Address [address] [place] [address]- Care Team Providers Care Site Coordinator Name Role Phone Mitch Lopez Primary Care Physician [phone] [facility] 09/08/20 - 10/08/20 [facility] [address] [place] [address]- Allergies, Adverse Reactions, Alerts Substance Reaction Severity [...] 3Admin Note: Administered at [facility] on [address] in [place]. 4Location History: [facility] pharmacy 5Result Comment: [06/27/2014] PT HAD AT [...] EDT, Compound Start Date: 10/16/18 Status: Ordered [facility] MELATONIN 3 MG TABLET [facility] MELATONIN 3 MG TABLET, 1, tablet, [...] Gm, 0 Refills, Maintenance, 08/08/20 15:21:00 EST, [place], [facility], Partial fill upon patient request [...] tablet, 2 Refills, Maintenance, 10/07/20 9:05:00 EST, [facility]/pharmacy #1972, Partial fill upon [...] 05/19/20 16:20:00 EDT, Route to Pharmacy Electronically, [id number], [facility]/pharmacy#1972, 160.02, cm, 04/28/20 13:40:00 EDT, Height, 9... Start Date: 05/19/20 Stop Date: 11/15/20 Status: Ordered ProAir HFA 90 mcg/inh inhalation aerosol with adapter 2, puffs, Inhalation, Every 6 hours, PRN, # 1 each, Refills 5, Tot. Refills 5, Maintenance, 06/16/20 18:28:00 EST, Route to Pharmacy Electronically, [id number], [facility]/pharmacy#1972, 160.02, cm, 05/27/20 13:10:00 EDT, [...] Active *Joseph Resendez, Care Coord inator, ICP [phone](Confirmed) Active 1Jantoinette Streeter [facility] [facility] [place] 2Case Funeral Director Parish Proctor ([facility]); Psychiatrist [...]
--- OUTSIDE RECORDS SUMMARY | 2024-04-05 15:32 | XMS_ITS | Continuity of Care Document ---
Author Organization [facility] Adult [facility] Address [address] [place] [address]- Care Team Providers Care Personal Development Coach Name Role Phone Mitch Lopez Primary Care Physician [facility] 03/18/21 - 04/21/21 [facility] Adult [facility] [address] [place] [id number] Attending Physician: Not on Staff, Attending [...] influenza virus vaccine, inactivated 6 04/10/12 Gi mikeala influenza virus vaccine, inactivated 7 05/18/11 Gi [...] 14 05/15/09 Given diphtheria-tetanus toxoids (DT) 15 5/13/09 Given Influenza Inactive (IM) (oldterm) 16 06/18/08 Give n Influenza Vaccine (oldterm) 17 05/23/07 Given Pneumococcal Vacc (oldterm) 18 07/18/06 Given Not Given Vaccine Date Status Refusal Reason pneumococcal 23-valent vaccine 10/13/13 Not Given Patient Refuses 1Result Comment: Received at [facility] on [address] 2Admin Note: VIS given 3Admin Note: Administered at [facility] on [address] in [place]. 4Location History: [facility] pharmacy 5Result Comment: [06/27/2014] PT HAD AT [facility] 6Admin Note: VIS GIVEN [...] 1 each, 0 Refills, 04/14/21 19:19:00 EDT, [facility]/pharmacy #1972, INHALE 2 PUFFS EVERY 6 HOURS NEEDED FOR WHEEZING/SHORTNESS OF BREATH, 160.02, cm, 04/14/21 14... Start Date: 04/14/21 Status: Ordered cetirizine 10 mg oral tablet 1 tablet = 10 mg, By Mouth, Daily, # 30 tablet, 0 Refills, Maintenance, 12/04/20 17:24:00 EDT, Tablet, [facility]/pharmacy #1972, Partial fill [...] 02/07/21 10:55:00 EDT, Route to Pharmacy Electronically, [facility] [...] 0 Refills, Maintenance, 02/07/21 10:54:00 EDT, Gel, [facility]/pharmacy #1972, Partial fill [...] Gm, 0 Refills, Maintenance, 08/08/20 15:21:00 EST, [place], [facility], Partial fill upon patient request [...] 0 Refills, Maintenance, 03/08/21 18:54:00 EDT, Tablet, [facility]/pharmacy #1972, Partial fill upon patient request if the prescription is for a schedule II opioid drug., 160.02, cm, 03/08/21 18:21:00... Start Date: 03/08/21 Stop Date: 03/22/21 Status: Ordered ProAir HFA 90 mcg/inh inhalation aerosol with adapter 2, puffs, Inhalation, Every 6 hours, PRN, # 1 each, Refills 5, Tot. Refills 5, Maintenance, 05/19/20 16:20:00 EDT, Route to Pharmacy Electronically, [id number], [facility]/pharmacy#1972, 160.02, cm, 04/28/20 13:40:00 EDT, Height, 9... Start Date: 05/19/20 Stop Date: 11/15/20 Status: Ordered ProAir HFA 90 mcg/inh inhalation aerosol with adapter 2, puffs, Inhalation, Every 6 hours, PRN, # 1 each, Refills 5, Tot. Refills 5, Maintenance, 06/16/20 18:28:00 EST, Route to Pharmacy Electronically, [id number], [facility]/pharmacy#1972, 160.02, cm, 05/27/20 13:10:00 EDT, [...] Refills, Maintenance, 02/04/21 9:28:00 EDT, [facility], 160.02, cm, 01/26/21 9:12:00 EDT, Height, 88.8, [...] Active *Joseph Resendez, Care Coord inator, ICP [phone](Confirmed) Active 1Jantoinette Streeter [facility] Psychiatry [place] 2Case Ehr Trainer [place] Proctor ([facility]); Psychiatrist - Dr Konstantin Narvaez [...]
--- OUTSIDE RECORDS SUMMARY | 2024-04-05 15:32 | XMS_ITS | Continuity of Care Document ---
Author Organization [facility] Adult [facility] Address [address] [place] [address]- Care Team Providers Care Motorboat Mechanic Inboard Name Role Phone Mitch Lopez Primary Care Physician [phone] [facility] 03[facility]24[facility]21 - 06/10/21 [facility] [address] [place] [address] Attending Physician: Not on Staff, Attending MD [...] Received at [facility] on [address] 2Admin Note: VIS given 3Admin Note: Administered at [facility] on [facility] in [place]. 4Location History: [facility] pharmacy 5Result Comment: [06/27/2014] PT [...] 05/19/20 16:20:00 EDT, Route to Pharmacy Electronically, [id number], [facility]/pharmacy#1972, 160.02, cm, 04/28/20 13:40:00 EDT, Height, 9... Start Date: 05/19/20 Stop Date: 11/15/20 Status: Ordered ProAir HFA 90 mcg/inh inhalation aerosol with adapter 2, puffs, Inhalation, Every 6 hours, PRN, # 1 each, Refills 5, Tot. Refills 5, Maintenance, 06/16/20 18:28:00 EST, Route to Pharmacy Electronically, [id number], [facility]/pharmacy#1972, 160.02, cm, 05/27/20 13:10:00 EDT, Height, [...] Refills, Maintenance, 02/04/21 9:28:00 EDT, [facility], 160.02, cm, 01/26/21 9:12:00 EDT, Height, 88.8, [...] Active OCD(Confirmed) Active *Joseph Resendez, Kendell mackenzie, [facility] [phone](Confirmed) Active Dyan Streeter [facility] Psychiatry [place] 2Case Attendant [facility] [place] ([facility]); Psychiatrist - [...] [facility] GI - Dr Rihcey. Multiple endoscopies, all normal. Other diagnosis is Non-ulcer dyspepsia Social History Social History Type Response Smoking Status Never smoker entered on: 02/07/14 Sex Female
== END 2024-04-05 15:59 | disposition home or self-care (01) ==
LOC: HO.HUSH 15:12
PROVIDERS: PCP Physician Assistant Medical; Visit Provider Urology
DX: N28.1 Cyst of kidney, acquired (principal)
CPT/HCPCS: 99213

== ENCOUNTER → 2024-04-05 15:12 | Outpatient (BNVA) | payer MEDICARE, SELFPAY | PROVIDERS: PCP Physician Assistant Medical; Visit Provider Urology ==

== ENCOUNTER 2024-06-17 10:03 | Outpatient (AMB) | payer MEDICARE, MEDICAID, SELFPAY ==
[2024-06-17 10:04] VITALS: BP 122/67; PULSE 85; O2SAT 99; BMI 34.7
--- NOTE | 2024-06-17 10:04 | A.OFFVIS_ITS ---
Vital Signs 06/17/24 10:04 Height 5 ft 3 in Weight 196 lb BMI 34.7 BP 122/67 Blood Pressure Location Lt brachial Position Sitting Pulse 85 Pulse Source Doppler Pulse Oximetry (%) 99 Oxygen Delivery Method Room Air Intake Visit Reasons: Asthma Allergies aspirin [ASPIRIN] Allergy (Unknown, Verified 06/17/24 10:10) STOMACH ISSUES ibuprofen [From MOTRIN] Allergy (Unknown, Verified 06/17/24 10:10) STOMACH ISSUES prochlorperazine [From COMPAZINE] Allergy (Unknown, Verified 06/17/24 10:10) NERVOUS Sulfa (Sulfonamide Antibiotics) Allergy (Unknown, Verified 06/17/24 10:10) unknown Compazine Allergy (Unknown, Uncoded 04/05/24 15:15) unknown Motrin Allergy (Unknown, Uncoded 04/05/24 15:15) unknown HPI Comments Details: The patient is a 64 year woman with lifelong asthma. She states that she has significant allergies and asthma most of her life. 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 She initially started getting allergy shots but then she stopped. She was maintained on her inhalers which appeared to have been stable. Once her satellite tv technician installer retired she was not getting her medications regularly. It now in the springtime and now summer her asthma became more significant. Back in October in November she had hard time with her breathing significant shortness of breath and cough. She did have x-rays done. I personally reviewed them demonstrating some evidence of bronchitis primarily in the right side. The patient had been on prednisone. Currently she is off all prednisone. On examination she does have significant expiratory wheezing. The patient will start all her medications. However, she is not better she is going to restart prednisone. Will plan to do allergy testing to see if she is a candidate for biologics. 09/13/2023 the patient is here for a pulmonary follow-up visit. The patient has been doing fair. She continues complaint of chest tightness and wheezing. She has been on frequent prednisone tapers. Although, on further questioning she misplaced her Trelegy has not been using a maintenance inhaler. She only uses the rescue inhaler. Although she does use her allergy medications. The patient did have a chest x-ray that was found to be abnormal she does need to have a repeat x-ray at this time. In addition to that the patient had some degree of e osinophilia and does benefit from biologic therapy but at this point she needs to demonstrate better adherence to therapy. She does state that her symptoms have worse in her home. Her allergy testing did demonstrate that she has allergies to dogs. She does have a dog in her home. She also has other allergies to grasses and trees. The patient right now will go ahead and restart her Trelegy continue her allergy medicine and if she has no better she will call the office and we can consider biologic therapies. 06/17/2024 the patient is here for a pulmonary follow-up visit. She has been struggling with her asthma after her apartment was fumigated for cockroaches. I did provide her with a letter to make sure that she does not get few medications in her apartment because of her worsening asthma symptoms. She did go on a short course prednisone. She is still having chest tightness and wheezing. Will go ahead and send additional medications to the pharmacy. In the meantime the patient has a Trelegy inhaler although she has not been using it. I explained to the importance of using it every morning. Should improve her symptoms. If her symptoms persist she does have underlying allergic asthma and therefore biologic therapies may be warranted. But at this point she needs to be adherent to her therapy and make sure that she is using [place] prescribed because it may not require any additional therapies. She will complete the prednisone in addition to a Z-Bryant. The patient is no better she will call. [facility] Medical History Abnormal chest x-ray Chronic allergic rhinitis Allergies Asthma Sleep apnea Neuropathy Headache, migraine HTN (hypertension) Acute cystitis without hematuria Mixed incontinence Flank pain Surgical History History of surgery Social History Patient Tobacco Use Status: Former Tobacco user Tobacco use type: Cigarette Years Smoked: 40 Years Review of Systems Const Denies fever(s) Eyes Denies change in vision ENT Reports nasal congestion and Reports nasal discharge Card Denies chest pain and Reports dyspnea on exertion Resp Reports chest congestion, Reports cough, Reports dyspnea on exertion and Reports wheezing GI Reports no additional complaints Musc Reports no additional complaints Skin/Breast Denies rash Neuro Reports no additional complaints Greg/Lymph Denies easy bleeding and Denies lymphadenopathy Aller/Immun Reports wheezing Physical Exam Vital Signs: Last Vital Signs Pulse 85 06/17/24 10:04 BP 122/67 06/17/24 10:04 Pulse Ox 99 06/17/24 10:04 Oxygen Delivery Method Room Air 06/17/24 10:04 BMI result Body Mass Index 34.7 Const General: comfortable HEENT Head: Yes normal to inspection Neck Neck: Yes supple Chest Chest palpation & inspection: normal inspection of the chest Resp Effort & Inspection: normal respiratory effort Auscultation: wheezes and diminished lung sounds Cardio Rate: regular rate Rhythm: regular rhythm Heart sounds: S1 normal heart sound present and S2 normal heart sound present Skin General skin exam: no rashes or lesions noted Extrem General: Yes no clubbing, cyanosis or edema Assessment & Plan Assessment & Plan (1) Asthma: Code(s): J45.909 - Unspecified asthma, uncomplicated Category: Medical Qualifiers: Asthma complication type: with acute exacerbation Asthma persistence: persistent Asthma severity: severe Qualified Code(s): J45.51 - Severe persistent asthma with (acute) exacerbation (2) Chronic allergic rhinitis: Code(s): J30.9 - Allergic rhinitis, unspecified Category: Medical (3) Allergies: Code(s): T78.40XA - Allergy, unspecified, initial encounter Category: Medical Qualifiers: Encounter type: subsequent encounter Qualified Code(s): T78.40XD - Allergy, unspecified, subsequent encounter (4) Abnormal chest x-ray: Code(s): R93.89 - Abnormal findings on diagnostic imaging of other specified body structures Category: Medical Plan continue Trelegy Singulair DIANA as needed start Prednisone taper if no better start Zpack continue nebs 2-3 times a day bloodwork Will be a good candidate for Biologic therapy F/U 4-6 months Medications: New azithromycin 500 mg PO DAILY 5 tabs 0RF 5 days prednisone PO daily; Take 2 tabs daily x 5 days, then 1 tablet daily x 5 days 15 tabs 0RF 10 days Refilled [id number] 200-62.5-25 mcg (Trelegy Ellipta) 1 inh i nhalation DAILY 60 ea 12RF 30 days Coding Level of Care Code Est Pt Level 4 (58048) Diagnoses Severe persistent asthma with acute exacerbation J45.51 Asthma complication type: with acute exacerbation Asthma persistence: persistent Asthma severity: severe Chronic allergic rhinitis J30.9 Allergy, subsequent encounter T78.40XD Encounter type: subsequent encounter Abnormal chest x-ray R93.89 Time Spent (min) 16
== END 2024-06-17 10:19 | disposition home or self-care (01) ==
PROVIDERS: PCP Physician Assistant Medical; Visit Provider Hospitalist
DX: J45.51 Severe persistent asthma with (acute) exacerbation (principal); J30.9 Allergic rhinitis, unspecified; T78.40XD Allergy, unspecified, subsequent encounter; R93.89 Abnormal findings on diagnostic imaging of other specified body structures
CPT/HCPCS: 99214

== ENCOUNTER → 2024-06-17 10:03 | Outpatient (BNVA) | payer MEDICARE, MEDICAID, SELFPAY | PROVIDERS: PCP Physician Assistant Medical; Visit Provider Hospitalist | DX: R93.89 Abnormal findings on diagnostic imaging of other specified body structures (principal); J45.51 Severe persistent asthma with (acute) exacerbation; J30.9 Allergic rhinitis, unspecified; T78.40XD Allergy, unspecified, subsequent encounter | CPT/HCPCS: 99212 ==

== ENCOUNTER 2024-06-25 12:00 | Outpatient (REF) | payer MEDICARE, MEDICAID, SELFPAY ==
[2024-06-25 14:09] LABS: Appearance Urine Clear; Color Urine Yellow; Glucose Urine UA Negative (Negative); Leukocyte Esterase Urine Negative (Negative); Nitrite Urine Negative (Negative); PH 5.5 (5.0-9.0); UMIC TRIGGER UA YES; Urine Blood Moderate (2+) (Negative); Urine Ketones Negative (Negative); Urine Protein Negative (Neg-Trace)
[2024-06-25 14:22] LABS: Bacteria Urine 1+ (None Seen); Calcium Oxalate Crystals Urine Present; Hyaline Casts Urine 0-2 /LPF (0-2); RBC Urine >20 /HPF (0-2); WBC Urine 0-5 /HPF (0-5)
== END 2024-06-25 12:01 | disposition home or self-care (01) ==
LOC: HO.LAB 12:00
PROVIDERS: Visit Provider Urology
DX: N39.0 Urinary tract infection, site not specified (principal); N28.1 Cyst of kidney, acquired; N20.0 Calculus of kidney
CPT/HCPCS: 81001; 87086; 87088; 87186

== ENCOUNTER 2024-07-11 10:04 | Outpatient (REF) | payer MEDICARE, MEDICAID, SELFPAY ==
--- OUTSIDE RECORDS SUMMARY | 2024-07-11 10:14 | XMS_ITS | Data Portability ---
Author Organization 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 Plan: Continue PT @ 2x/wk for 8 weeks to decrease pain, increase ROM, optimize mechanics for functional movement, and facilitate independence in functional ADL's. [email or web address] Not available 03/26/2024 12:06:16 03/28/2024 03/28/2024 Assessment: Improved AROM after RX. Tight end feel all planes. Plan: Continue PT @ 2x/wk to decrease pain, increase ROM, optimize mechanics for functional movement, and facilitate independence in functional ADL's. [email or web address] Not available 03/28/2024 13:59:47 04/08/2024 04/08/2024 Assessment: Improved AROM after RX. Tight end feel all planes. Good results with AAROM HEP Plan: Continue PT @ 2x/wk to decrease pain, increase ROM, optimize mechanics for functional movement, and facilitate independence in functional ADL's. [email or web address] Not available 04/08/2024 14:19:53 04/10/2024 04/10/2024 Assessment: Improved AROM after RX. Tight end feel all planes. Tight R UT. Plan: Continue PT @ 2x/wk to decrease pain, increase ROM, optimize mechanics for functional movement, and facilitate independence in functional ADL's. [email or web address] Not available 04/10/2024 12:02:03 04/15/2024 04/15/2024 Assessment: Good steady progress. Significant improvement with AROM. Plan: Continue PT @ 2x/wk to decrease pain, increase ROM, optimize mechanics for functional movement, and facilitate independence in functional ADL's. [email or web address] Not available 04/15/2024 11:30:41 Plan of Treatment Reminders Order Date Submit Date Provider Last Modified By Organization Details Last Modified Time Details Appointments None record ed. Lab None record ed. Referral None record ed. Procedures None record ed. Surgeries None record ed. Imaging None record ed. Medication Orders None record ed. 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 of Right Shoulder Strength -[id number] Not available Not available Not available [facility] goal of Right Shoulder Strength -[id number] Not available Not available Not available intermediate school 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 goal of Right Shoulder Strength -[id number] Not available Not available Not available 3 weeks of Sleeping -[id number] Not available Not available Not available 3 weeks of Overall ADL's NOTE Not available Not available Not available intermediate school teacher goal of Overall ADL's -[id number] Not available Not available Not available [facility] goal of Reaching NOTE Not available Not available Not available intermediate school teacher goal of Lifting -[id number] Not available Not available Not available 3 weeks of Pain NOTE Not available Not available Not available intermediate school teacher goal of Pain NOTE Not available Not available Not available Patient InstructionsNo instructions recorded. Reason for Referral None Reported. Results Created Date Observation Date Name Description Value Unit Range Abnormal Flag Note LastModifiedBy Organization Detail LastModifiedTime 03/29/20 24 03/25/2022 imagi ng/di agnos tic resul t No observ ation record ed. [email or web address] Not Available 03/02 09:01:19 03/29/20 24 03/28/2022 imagi ng/di agnos tic resul t No observ ation record ed. [email or web address] Not Available 03/02 09:01:20 Result Notes None recorded. Procedures Surgical History Date Name Laterality Status Provider Name and Address Organization Details Recorded Time 52209 Therapeutic Exercise (1:1) cancelled Nicolas Pyser, PT [address], [place], [address], [facility] 04/24/2024 21:21:19 4 75051: Manual therapy cancelled Nicolas Pyser, PT [address], [place], [address], [facility] 04/24/2024 21:21:19 4 69567 Therapeutic Exercise (1:1) completed Devendra Scafuri, [employer] [address], [place], [address], [facility] 04/15/2024 11:29:14 4 80237: Manual therapy completed Devendra Scafuri, [employer] [address], [place], [address], [facility] 04/15/2024 11:29:14 4 97588 Therapeutic Exercise (1:1) completed Devendra Scafuri, [employer] [address], [place], [address], [facility] 04/10/2024 12:00:38 4 89612: Manual therapy completed Devendra Jimenezfuri, [employer] [address], [place], [address], [facility] 04/10/2024 12:00:38 4 67864 Therapeutic Exercise (1:1) completed Devendra Scafuri, [employer] [address], [place], [address], [facility] 04/08/2024 07:01:35 4 84720: Manual therapy completed Devendra Scafuri, [employer] [address], [place], [address], [facility] 04/08/2024 07:01:35 4 03404 Therapeutic Exercise (1:1) cancelled Nicolas Pyser, PT [address], [place], [address], [facility] 04/02/2024 15:14:54 4 67707: Manual therapy cancelled Nicolas Pyser, PT [address], [place], [address], [facility] 04/02/2024 15:14:54 4 99769 Therapeutic Exercise (1:1) completed Devendra Roblerori, [employer] [address], [place], [address], [facility] 03/28/2024 14:02:15 4 06322: Manual therapy completed Devendra Tonygeoffri, [employer] [address], [place], [address], [facility] 03/28/2024 14:02:30 4 70209 Therapeutic Exercise (1:1) completed Nicolas Pyser, PT [address], [place], [address], [facility] 03/25/2024 08:20:24 4 23854: Low complexity PT Eval completed Nicolas Pyser, PT [address], [place], [address], [facility] 03/26/2024 12:06:06 4 28031 Therapeutic Exercise (1:1) cancelled Nicolas Pyser, PT [address], [place], [address], [facility] 01/18/2024 13:18:07 4 82629 Therapeutic Exercise (1:1) cancelled Nicolas Pyser, PT [address], [place], [address], [facility] 01/15/2024 21:29:52 4 98901: Low complexity PT Eval cancelled Nicolas Pyser, PT [address], [place], [address], [facility] 01/15/2024 21:29:52 4 37169 Therapeutic Exercise (1:1) cancelled Nicolas Pyser, PT [address], [place], [address], [facility] 01/04/2024 13:19:16 4 28098: Low complexity PT Eval cancelled Nicolas Pyser, PT [address], [place], [address], [facility] 01/04/2024 13:19:16 4 23699 Therapeutic Exercise (1:1) completed Nicolas Pyser, PT [address], [place], [address], [facility] 01/02/2024 19:10:52 4 69572: Low complexity PT Eval completed Nicolas Pyser, PT [address], [place], [address], [facility] 01/02/2024 19:11:01 4 63003 Therapeutic Exercise (1:1) cancelled John Florek, PT [address], [place], [address], [facility] 11/07/2023 07:29:29 4 77341: Low complexity PT Eval cancelled John Florek, PT [address], [place], [address], [facility] 11/07/2023 07:29:29 4 G8417 BMI Above Upper Parameters, F/U Documented cancelled John Florek, PT [address], [place], [address], [facility] 11/07/2023 07:29:29 4 G8427 Current Medication Documented cancelled John Florek, PT [address], [place], [address], [facility] 11/07/2023 07:29:29 4 23450 Therapeutic Exercise (1:1) cancelled John Florek, PT [address], [place], [address], [facility] 10/31/2023 13:57:08 4 19368: Low complexity PT Eval cancelled John Florek, PT [address], [place], [address], [facility] 10/31/2023 13:57:08 4 G8417 BMI Above Upper Parameters, F/U Documented cancelled John Florek, PT [address], [place], [address], [facility] 10/31/2023 13:57:08 4 G8427 Current Medication Documented cancelled John Florek, PT [address], [place], [address], [facility] 10/31/2023 13:57:08 4 33548 Therapeutic Exercise (1:1) completed John Florek, PT [address], [place], [address], [facility] 10/29/2023 08:19:30 4 53575: Low complexity PT Eval completed John Whitek, PT [address], [place], [address], [facility] 10/29/2023 08:19:23 4 G8417 BMI Above Upper Parameters, F/U Documented completed Nicolas Pyser, PT [address], [place], [address], [facility] 10/30/2023 11:40:34 4 G8427 Current Medication Documented completed Nicolas Pyser, PT [address], [place], [address], [facility] 10/30/2023 11:40:55 Imaging Results Imaging Date Name Status LastModified by Organiz ation Details LastModified Time 03/25/2022 imaging/diag nostic result completed Information not available 03/29/2024 09:01:19 03/28/2022 imaging/diag nostic result completed Information not available 03/29/2024 09:01:20 Procedure Notes None recorded. Medical Equipment None Reported. Allergies Allergen ID Allergen Name Allergen Category Reaction Reaction Severity Criticality Documentation Date Start Date Code Code System Note Provider Name and Address Organization Details Recorded Time 61145 Motrin medicatio n Not available Not available Not available 10/02/2023200748 8 RxNorm Aller gyRea ction : 'Naus ea/Vo mitin g/Joyce rrhea '; Not Available [facility] 13:52:29 95438 Bactrim medicatio n Not available Not available Not available 10/02/20232007 07470 9 RxNorm Aller gyRea ction : 'Skin React ion'; Not Available [facility] 13:52:29 66684 Substance with sulfonami de structure and antibacte rial mechanism of action (substanc e) medicatio n Not available Not available Not available 10/02/20232015 76349 8003 SNOMED Not Available [facility] 13:52:29 Medications Name Sig Start Date Stop Date Status Note LastModified by Organization Details LastModified Time prednisone 10 mg tablet PLEASE SEE ATTACHED FOR DETAILED DIRECTIONS active Not Available Not Available N ot Available doxycycline hyclate 100 mg capsule TAKE 1 CAPSULE BY MOUTH TWICE A DAY FOR 10 DAYS active Not Available Not Available No t Available albuterol sulfate 2.5 mg/3 mL (0.083 %) solution for nebulization INHALE 1VIAL VIA NEBULIZER EVERY 6 HOURS NEEDED FOR SHORTNESS OF BREATH OR WHEEZING FOR 30 DAYS active Not Available Not Available Not Available cetirizine 10 mg tablet TAKE 1 TABLET BY MOUTH EVERYDAY AT BEDTIME active Not Available Not Available No t Available azithromycin 250 mg tablet TAKE 2 TABLETS BY MOUTH TODAY, THEN TAKE 1 TABLET DAILY FOR 4 DAYS active Not Available Not Available No t Available meloxicam 15 mg tablet TAKE 1 TABLET BY MOUTH EVERY DAY FOR 10 DAYS WITH FOOD active Not Available Not Available No t Available phenazopyrid ine 200 mg tablet TAKE 1 TABLET BY MOUTH 3 TIMES A DAY,X3 DAYS active Not Available Not Available Not Available prednisone 20 mg tablet TAKE 2 TABLETS BY MOUTH EVERY DAY FOR 5 DAYS active Not Available Not Available No t Available melatonin 3 mg tablet TAKE 1 TABLET BY MOUTH EVERYDAY AT BEDTIME active Not Available Not Available No t Available ciprofloxaci n 500 mg tablet TAKE 1 TABLET BY MOUTH EVERY 12 HOURS FOR 7 DAYS active Not Available Not Available N ot Available tramadol 50 mg tablet 1 TABLET BY MOUTH 2 TIMES A DAY,INSTR:F OR SEVERE PAIN DUE TO ROTATOR CUFF TEAR. MAY OBTAIN FEWER active Not Available Not Available No t Available amoxicillin 500 mg tablet TAKE 2 TABLET BY MOUTH EVERY 8 HOURS FOR 5 DAYS active Not Available Not Available No t Available acetaminophe n ER 650 mg tablet,exten ded release TAKE 2 TABLETS BY MOUTH EVERY 8 HOURS NEEDED FOR PAIN active Not Available Not Available No t Available verapamil ER 180 mg 24 hr capsule,exte nded release TAKE 1 CAPSULE BY MOUTH EVERY DAY active Not Available Not Available No t Available phenazopyrid ine 100 mg tablet TAKE 1 TABLET BY MOUTH EVERY 8 HOURS FOR 6 DAYS active Not Available Not Available No t Available benzonatate 100 mg capsule TAKE 1 CAPSULE BY MOUTH 3 TIMES A DAY FOR 7 DAYS active Not Available Not Available N ot Available cephalexin 500 mg capsule TAKE 1 CAPSULE BY MOUTH EVERY 12 HOURS FOR 5 DAYS active Not Available Not Available N ot Available pseudoephedr ine-guaifene sin ER 80-700 mg tablet,exten ded release 1 PO Q 4-6-H OURS PRN PAIN 2007 active Statu s: 'Curr ent'; Not Available Not Available Not Available nitrofuranto in macrocrystal 100 mg capsule TAKE 1 CAPSULE 2 TIMES A DAY FOR 5 DAYS MUST ADMINISTER WITH A MEAL/FOOD active Not Available Not Available No t Available buspirone 10 mg tablet TAKE 1 TABLET BY MOUTH THREE TIMES A DAY active Not Available Not Available Not Available lidocaine 5 % topical patch APPLY 1 PATCH TOPICALLY DAILY, REMOVE PATCHES AFTER 12 HOURS active Not Available Not Available No t Available guanfacine 1 mg tablet TAKE 1/2 TABLET TWICE A DAY BY MOUTH active Not Available Not Available No t Available montelukast 10 mg tablet TAKE 1 TABLET BY MOUTH EVERY DAY active Not Available Not Available No t Available hydroxyzine HCl 25 mg tablet TAKE 1 TABLET BY MOUTH TWICE A DAY NEEDED FOR ANXIETY active Not Available Not Available No t Available albuterol sulfate HFA 90 mcg/actuatio n aerosol inhaler INHALE 2 PUFFS BY MOUTH EVERY 6 HOURS active Not Available Not Available No t Available fluoxetine 20 mg capsule TAKE 1 CAPSULE BY MOUTH EVERY DAY active Not Available Not Available No t Available fluticasone propionate 50 mcg/actuatio n nasal spray,suspen devorah SPRAY 1 SPRAY INTO EACH NOSTRIL NASALLY ONCE A DAY 30 DAYS active Not Available Not Available No t Available azithromycin 500 mg tablet TAKE 1 TABLET BY MOUTH EVERY DAY FOR 5 DAYS active Not Available Not Available No t Available Premarin 0.3 mg tablet TAKE 1 TABLET BY MOUTH EVERY DAY active Not Available Not Available No t Available nitrofuranto in monohydrate/ macrocrystal s 100 mg capsule TAKE 1 CAPSULE BY MOUTH TWICE A DAY FOR 7 DAYS MUST ADMINISTER WITH A MEAL/FOOD active Not Available Not Available No t Available budesonide-f ormoterol HFA 160 mcg-4.5 mcg/actuatio n aerosol inhaler TAKE 2 PUFFS INHALATION 2 TIMES A DAY,RINSE MOUTH AND THROAT AFTER USE active Not Available Not Available No t Available diclofenac 1 % topical gel APPLY 1 APPLICATION TOPICALLY 4 TIMES A DAY NEEDED FOR MODERATE PAIN. active Not Available Not Available No t Available oxycodone HCl-oxycodon e-ASA 1 every 4 - 6 hours as needed DO NOT DRIVE WHILE ON THIS MEDICATION 2022 active Statu s: 'Curr ent'; Not Available Not Available Not Available Spiriva Respimat 1.25 mcg/actuatio n solution for inhalation INHALE 2 PUFFS DAILY active Not Available Not Available Not Available Trelegy Ellipta Trelegy Ellipta 200-62.5-25 MCG/ACT Aerosol Powder Breath Activated 2023 active Statu s: 'Curr ent'; Not Available Not Available Not Available Caplyta 42 mg capsule TAKE 1 CAPSULE BY MOUTH EVERY DAY active Not Available Not Available No t Available Trelegy Ellipta 200 mcg-62.5 mcg-25 mcg powder for inhalation INHALE 1 PUFF BY MOUTH DAILY FOR 30 DAYS active Not Available Not Available Not Available Vitals None Recorded Social History None recorded. Functional Status None recorded. Mental Status None recorded. Family History Nothing Reported. Medical History No medical history recorded. Gynecological HistoryNo gynecological history recorded. Obstetrics History GPAL:G 0 P 0 0 0 0 Past Encounters Encounter ID Performer Location Encounter Start Date Encounter Closed Date Diagnosis/Indication Diagnosis SNOMED-CT Code Diagnosis ICD10 Code [id number] [facility] [address] [place] [address] 10/30/2023 11:33:03 10/30/2023 11:49:11 Impingement syndrome of right shoulder region [id number] 18794 M75.41 [id number] Nicolas Mccurdyser, PT [facility] [address] [place] [address] 01/03/2024 11:13:01 01/03/2024 12:27:21 Impingement syndrome of right shoulder region [id number] 12718 M75.41 [id number] Nicolas Mccurdyser, PT [facility] [address] [place] [address] 03/26/2024 11:15:07 03/26/2024 12:11:48 Impingement syndrome of right shoulder region [id number] 24292 M75.41 [id number] Nicolas Mccurdyser, PT [facility] [address] [place] [address] 03/28/2024 11:23:57 03/28/2024 12:13:50 Impingement syndrome of right shoulder region [id number] 46722 M75.41 [id number] Nicolas Mccurdyser, PT [facility] [address] [place] [address] 04/08/2024 10:41:43 04/08/2024 11:34:28 Impingement syndrome of right shoulder region [id number] 72571 M75.41 [id number] Nicolas Mccurdyser, PT [facility] [address] [place] [address] 04/10/2024 10:57:16 04/10/2024 12:17:30 Impingement syndrome of right shoulder region [id number] 03328 M75.41 [id number] Nicolas Mccurdyser, PT [facility] [address] [place] [address] 04/15/2024 10:31:52 04/15/2024 13:05:19 Impingement syndrome of right shoulder region [id number] 31813 M75.41 Health Concerns Section Related Observation LastModified by Organization Detai ls LastModified Time None Recorded Concern Status LastModified by Organization Details LastModified Time None Recorded Advance Directives Directive None Recorded Payers Encounter Date Sequence Insurance Name Policy Number Policy Aguilar Covered Member ID Aguilar Member ID Guarantor Name 03/26/2024 1 [employer] (MEDICARE REPLACEMENT PPO) [id number] Bhumi Cappas [id number] Bhumi Cappas 03/26/2024 2 [place] [facility] Bhumi Cappas [id number] Bhumi Cappas 03/28/2024 1 [employer] (MEDICARE [place]ACEMENT [place] [id number] Bhumi Cappas [id number] Bhumi Cappas 03/28/2024 2 [place] [facility] Bhumi Cappas [id number] Bhumi Cappas 04/08/2024 1 [employer] (MEDICARE REPLACEMENT P[place]) [id number] Bhumi Cappas [id number] Bhumi Cappas 04/08/2024 2 [place] [facility] Bhumi Cappas [id number] Bhumi Cappas 04/10/2024 1 [employer] (MEDICARE REPLACEMENT PPO) [id number] Bhumi Cappas [id number] Bhumi Cappas 04/10/2024 2 [place] [facility] Bhumi Cappas [id number] Bhumi Cappas 04/15/2024 1 [employer] (MEDICARE REPLACEMENT PPO) [id number] Bhumi Cappas [id number] Bhumi Cappas 04/15/2024 2 [place] [facility] Bhumi Cappas [id number] Bhumi Cappas Notes Date Note Type Note Provider Name and Address Organization Details Recorded Time 03/26/2024 text/html 64 yo female sta tus post left shoulder SAD/DCE and debridement by Dr. Cordova in August 2022. Reports doing well with only some minor discomfort. Current c/o Right shoulder, has progressively gotten more painful with use particular w reach away from the body or overhead. Denies any trauma or injury. Last saw KD 09/26/23 who noted moderate bursal irritability, with positive impingement testing. X-rays showed type III acromion, AC joint demonstrates moderate arthritic changes. Recommended conservative measures to include physical therapy and oral NSAIDs. Was seen for PT eval 10/30/23 and 01/03/24 but w/o f/u for PT treatments for either episode of therapy and was d/c'd for poor compliance. Pt reports went back to work. 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 Now arrives again for PT eval. Pt's goal is to avoid surgery, regain ability to reach overhead. Anamaria Jorge, PT [address], [place], [address], [facility] 03/26/2024 12:07:17 03/28/2024 text/html Pt reports 7/10 pain. Devendra Mendiola [employer] [address], [place], [address], [facility] 03/28/2024 15:11:37 04/08/2024 text/html Pt reports 8/10 pain. Shoulder feels stiffer today. Devendra Mendiola, [employer] [address], [place], [address], [facility] 04/08/2024 14:20:22 04/10/2024 text/html Pt reports 8/10 pain. Shoulder feels stiffer today. Deevndra Mendiola [employer] [address], [place], [address], [facility] 04/10/2024 12:02:40 04/15/2024 text/html Pt reports 7/10 pain. Its moving better Devendra Mendiola [employer] [address], [place], [address], [facility] 04/15/2024 11:31:08 OBGyn Episode No OBEpisode recorded.
[2024-07-11 10:19] LABS: MANUAL DIFF FLAG NO
[2024-07-11 10:42] LABS: Basophils Percent Auto 0.8 % (0-2); Eosinophils Absolute Auto 0.3 X10*3/uL (0.0-0.4); Eosinophils Percent Auto 7.2 % (0-4); Hematocrit 42.5 % (37.0-47.0); Imm Gran Abs Auto 0.01 X10*3/uL (0.00-0.03); Imm Gran Pct Auto 0.2 % (0.0-0.4); Lymphocytes Percent Auto 42.1 % (20-40); Mean Corpuscular HGB Conc 32.9 g/dl (31.0-35.0); Mean Corpuscular Hemoglobin 30.7 pg (27.0-33.0); Mean Corpuscular Volume 93.2 fL (80.0-98.0); Monocytes Absolute Auto 0.4 X10*3/uL (0.1-1.2); Monocytes Percent Auto 9.3 % (2-11); Neutrophils Absolute Auto 1.9 x10*3/uL (2.0-8.3); Neutrophils Percent Auto 40.4 % (45-73); Platelet Count 286 X10*3/uL (160-400); Red Blood Count 4.56 X10*6/uL (4.20-5.50); Red Cell Distribution Width 12.4 % (11.0-16.0); White Blood Count 4.7 X10*3/uL (4.8-10.8)
[2024-07-11 11:04] LABS: Anion Gap 11 (12-20); Blood Urea Nitrogen 11 mg/dL (9-16); Calcium 9.7 mg/dL (8.4-10.2); Carbon Dioxide 26 mmol/L (22-29); Chloride 111 mmol/L (96-108); Estimated Glomerular Filt Rate > 60; Glucose Random 108 mg/dL (60-115); Potassium 4.4 mmol/L (3.3-5.1); Sodium 144 mmol/L (135-145)
[2024-07-11 11:14] LABS: Appearance Urine Cloudy; Color Urine Yellow; Glucose Urine UA Negative (Negative); Leukocyte Esterase Urine Trace (Negative); Nitrite Urine Negative (Negative); PH 5.5 (5.0-9.0); Specific Gravity - Urine 1.025 (1.005-1.025); UMIC TRIGGER UA YES; Urine Blood Large (3+) (Negative); Urine Ketones Negative (Negative); Urine Protein 30 (1+) mg/dL (Neg-Trace)
[2024-07-11 11:27] LABS: Bacteria Urine None Seen (None Seen); RBC Urine >20 /HPF (0-2)
== END 2024-07-11 10:05 | disposition home or self-care (01) ==
LOC: HO.LAB 10:04
PROVIDERS: Absent Provider Urology; Visit Provider Urology
DX: N39.0 Urinary tract infection, site not specified (principal); N20.0 Calculus of kidney
CPT/HCPCS: 36415; 80048; 81001; 85025; 87086

== ENCOUNTER 2024-11-12 08:57 | Outpatient (REF) | payer MEDICARE, MEDICAID, SELFPAY ==
--- OUTSIDE RECORDS SUMMARY | 2024-11-14 09:47 | XMS_ITS | Encounter Summary ---
Author Organization [facility] Address [address] [place] [address] Care Team Providers Care Train Attendant Name Role Phone Unavailable Primary Care Provider Unavailabl e Encounter Details Date Type Department Care Team (Latest Contact Info) Description 11/19/2018 Abstract [facility] CONVERSIONS Dental, Provider, DDS Social History Tobacco Use Types Packs/Day Years Used Date Smoking Tobacco: Never Assessed Comments Unknown Sex and Gender Information Value Date Recorded Sex Assigned at Female 05/30/2022 10:24 AM EDT Legal Sex Female 10:24 AM EDT Gender Identity Female 05/30/2022 10:24 AM EDT Sexual Orientation Straight 05/30/2022 10 :24 AM EDT documented as of this encounter Plan of Treatment Not on file documented as of this encounter Visit Diagnoses Not on filedocumented in this encounter
--- OUTSIDE RECORDS SUMMARY | 2024-11-14 09:47 | XMS_ITS | Encounter Summary ---
Author Organization [employer] [facility] Address [address] [place] [address] Care Team Providers Care Water Resources Engineer Name Role Phone Unavailable Primary Care Provider Unavailabl e Encounter Details Date Type Department Care Team (Latest Contact Info) Description 03/25/2022 Abstract [facility] CONVERSIONS Dental, Provider, DDS Social History Tobacco [...]
--- OUTSIDE RECORDS SUMMARY | 2024-11-14 09:47 | XMS_ITS | Clinical Summary ---
Author Organization [address] [place] [address] [place] [phone] Phone Care Team Providers Care Regional Property Manager Name Role Phone Unavailable Primary Care Provider Unavailabl e Surgical History Surgery Date Site/Laterality Comments KNEE SURGERY 2007 PROCEDURE: HISTORICAL KNEE SURGERY; COMMENT: Arhtroscopy lt knee KNEE SURGERY 2003 PROCEDURE: HISTORICAL KNEE SURGERY; COMMENT: Arthroscopy rt knee HYSTERECTOMY 1991 PROCEDURE: HISTORICAL HYSTERECTOMY; COMMENT: ovarian cancer KNEE SURGERY 03/19/10 PROCEDURE: HISTORICAL KNEE SURGERY; COMMENT: Left knee arthroscopy with partial medial menisectomy KNEE SURGERY PROCEDURE: HISTORICAL KNEE SURGERY; COMMENT: right knee Medical History Medical History Date Comments Asthma DX:Asthma Anxiety DX:Anxiety Bipolar 2 disorder ([facility] V24, CMS/HCC V28) DX:Bipolar 2 disorder ([facility]) Migraine 06/10/2014 DX:Migraine IBS (irritable bowel syndrome) 06/10/2014 D X:IBS (irritable bowel syndrome) Kidney stone 06/10/2014 DX:Kidney stone Chronic back pain 06/10/2014 DX:Chronic symone k pain Peripheral neuropathy 06/10/2014 DX:Periphe ral neuropathy Depressive disorder DX:Depressiv e disorder Esophageal reflux DX:Esophageal reflux Essential hypertension DX:Essent ial hypertension Urinary tract infection DX:Urina ry tract infection Cerebrovascular disease DX:Cereb rovascular disease Spinal stenosis DX:Spinal stenos is Family History Medical History Relation Name Comments Hypertension Father Arthritis Mother dementia Relation Name Status Comments Father Alive Mother Alive Social History Tobacco Use Types Packs/Day Years Used Date Smoking Tobacco: Never Alcohol Use Standard Drinks/Week Comments No 0 (1 standard drink = 0.6 oz pur e alcohol) Comments Unknown Sex and Gender Information Value Date Recorded Sex Assigned at Not on file Legal Sex Female 12:51 PM EST Gender Identity Not on file Sexual Orientation Not on file Obstetrics History Plan of Treatment Health Maintenance Due Date Last Done Comments Breast Cancer Screening 1962 COVID-19 Vaccine (#1) 1967 Zoster Vaccines (1 of 2) 1981 Pneumococcal Vaccine: 50+ Years (2 of 2 - PCV) 07/18/2007 07/18/2006 Pneumococcal Vaccine: Pediatrics (0 to 5 Years) and At-Risk Patients (6 to 64 Years) (2 of 2 - PCV) 07/18/2007 07/18/2006 DTaP,Tdap,and Td Vaccines (2 - Td or Tdap) 12/10/2018 12/10/2008 RSV Immunization Adult Patients (1 - Risk 60-74 years 1-dose series) 2022 Cholesterol Screening (Lipid Panel) 11/12/2024 Colorectal Cancer Screening: Colonoscopy 11/12/2024 Depression Screening 11/12/2024 HIV Screening 11/12/2024 Hepatitis C Screening 11/12/2024 Hypertension/CHF/CAD Annual BMP Blood Test 11/12/2024 Medicare Annual Wellness Visit 11/12/2024 Social Influencers of Health Screening 11/12/2024 Influenza Vaccine (Season Ended) 2025 Hepatitis B Vaccines Completed 01/09/2013, 12/11/2012, 04/10/2012, Additional history exists HIB Vaccines Aged Out No longer eligi ble based on patient's age to complete this topic HPV Vaccines Aged Out No longer eligi ble based on patient's age to complete this topic Hepatitis A Vaccines Aged Out No long er eligible based on patient's age to complete this topic IPV Vaccines Aged Out No longer eligi ble based on patient's age to complete this topic MMR Vaccines Aged Out No longer eligi ble based on patient's age to complete this topic Meningococcal ACWY Vaccine Aged Out N o longer eligible based on patient's age to complete this topic Meningococcal B Vaccine Aged Out No l onger eligible based on patient's age to complete this topic RSV Immunization Patients Under 20 months Aged Out No longer eligible based on patient's age to complete this topic Varicella Vaccines Aged Out No longer eligible based on patient's age to complete this topic Insurance AET[employer] MEDICARE ADVANTAGE MEDICAID - [place] Advance Directives Documents on File Type Date Recorded Patient 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
--- OUTSIDE RECORDS SUMMARY | 2024-11-14 09:47 | XMS_ITS | Data Portability ---
Author Organization [facility], [facility] Address [address] [place] [address] Care Team Providers Care Barrel Polisher Name Role Phone JOSELITO HINOJOSA Referring Provider [phone] Assessment Encounter Date Assessment Date Assessment LastModified [...] By Organization Details Last Modified Time 03/26/2024 [id number] 3 weeks of Right Shoulder PROM motion: external rotation: at 0 degrees of abduction: passive motion right (80 deg.) Not available Not available Not available 3 weeks of Right Shoulder PROM (normal) motion: forward flexion: passive motion right (160 deg.) Not available Not available Not available 3 weeks of Right Shoulder PROM Motion: Internal Rotation: At 0 Degrees Abduction: Passive Motion Right (80 deg.) Not available Not available Not available loss prevention manager goal of Right Shoulder PROM WNL Not available Not available Not available [facility] goal of Right Shoulder Strength (normal) strength: shoulders: internal rotation: right 5 (0-5) Not available Not available Not available [facility] goal of Right Shoulder Strength (normal) strength: shoulders: external rotation: right: at 0 degrees of abduction 5 (0-5) Not available Not available Not available [facility] goal of Right Shoulder Strength (normal) strength: shoulders: flexion: right 5 (0-5) Not available Not available Not available 3 weeks of Sleeping no trouble sleeping Not available Not available Not available 3 weeks of Overall ADL's WFL Not available Not available Not available loss prevention manager goal of Overall ADL's unlimited Not available Not available Not available loss prevention manager goal of Reaching performs without symptoms Not available Not available Not available [facility] goal of Lifting performs without symptoms Not available Not available Not available 3 weeks of Pain <5/10 Not available Not available Not available loss prevention manager goal of Pain 0/10 Not available Not available Not available Patient [...] Name and Address Organization Details Recorded Time 4 00518 Therapeutic Exercise (1:1) cancelled Nicolas Mccurdyser, PT [address], [place], [address], [facility] 04/24/2024 21:21:19 4 91801: Manual therapy cancelled Nicolas Pyser, PT [address], [place], [address], [facility] 04/24/2024 21:21:19 4 31516 Therapeutic Exercise (1:1) completed Devendra Scafuri, NEUROSURGICAL NURSE [address], [place], [address], [facility] 04/15/2024 11:29:14 4 50698: Manual therapy completed Devendra Scafuri, NEUROSURGICAL NURSE [address], [place], [address], [facility] 04/15/2024 11:29:14 4 41764 Therapeutic Exercise (1:1) completed Devendra Scafuri, NEUROSURGICAL NURSE [address], [place], [address], [facility] 04/10/2024 12:00:38 4 92638: Manual therapy completed Devendra Scafuri, NEUROSURGICAL NURSE [address], [place], [address], [facility] 04/10/2024 12:00:38 4 54665 Therapeutic Exercise (1:1) completed Devendra Scafuri, NEUROSURGICAL NURSE [address], [place], [address], [facility] 04/08/2024 07:01:35 4 29909: Manual therapy completed Devendra Scafuri, NEUROSURGICAL NURSE [address], [place], [address], [facility] 04/08/2024 07:01:35 4 39133 Therapeutic Exercise (1:1) cancelled Nicolas Pyser, PT [address], [place], [address], [facility] 04/02/2024 15:14:54 4 06396: Manual therapy cancelled Nicolas Pyser, PT [address], [place], [address], [facility] 04/02/2024 15:14:54 4 61610 Therapeutic Exercise (1:1) completed Devendra Jimenezfuri, NEUROSURGICAL NURSE [address], [place], [address], [facility] 03/28/2024 14:02:15 4 79371: Manual therapy completed Devendra Scafuri, NEUROSURGICAL NURSE [address], [place], [address], [facility] 03/28/2024 14:02:30 4 91195 Therapeutic Exercise (1:1) completed Nicolas Pyser, PT [address], [place], [address], [facility] 03/25/2024 08:20:24 4 23299: Low complexity PT Eval completed Nicolas Pyser, PT [address], [place], [address], [facility] 03/26/2024 12:06:06 4 98286 Therapeutic Exercise (1:1) cancelled Nicolas Pyser, PT [address], [place], [address], [facility] 01/18/2024 13:18:07 4 73593 Therapeutic Exercise (1:1) cancelled Nicolas Pyser, PT [address], [place], [address], [facility] 01/15/2024 21:29:52 4 97765: Low complexity PT Eval cancelled Nicolas Calliser, PT [address], [place], [address], [facility] 01/15/2024 21:29:52 4 19829 Therapeutic Exercise (1:1) cancelled Nicolas Pyser, PT [address], [place], [address], [facility] 01/04/2024 13:19:16 4 12423: Low complexity PT Eval cancelled Nicolas Calliser, PT [address], [place], [address], [facility] 01/04/2024 13:19:16 4 39902 Therapeutic Exercise (1:1) completed Nicolas Calliser, PT [address], [place], [address], [facility] 01/02/2024 19:10:52 4 82737: Low complexity PT Eval completed Nicolas Mccurdyser, PT [address], [place], [address], [facility] 01/02/2024 19:11:01 4 12509 Therapeutic Exercise (1:1) cancelled John Shermanek, PT [address], [place], [address], [facility] 11/07/2023 07:29:29 4 80900: Low complexity PT Eval cancelled John Shermanek, PT [address], [place], [address], [facility] 11/07/2023 07:29:29 4 G8417 BMI Above Upper Parameters, F/U Documented cancelled John Shermanek, PT [address], [place], [address], [facility] 11/07/2023 07:29:29 4 G8427 Current Medication Documented cancelled Johnelayne Garcia, PT [address], [place], [address], [facility] 11/07/2023 07:29:29 4 18858 Therapeutic Exercise (1:1) cancelled Johnelayne aGrcia, PT [address], [place], [address], [facility] 10/31/2023 13:57:08 4 58066: Low complexity PT Eval cancelled John Garcia, PT [address], [place], [address], [facility] 10/31/2023 13:57:08 4 G8417 BMI Above Upper Parameters, F/U Documented cancelled Johnelayne Shermanek, PT [address], [place], [address], [facility] 10/31/2023 13:57:08 4 G8427 Current Medication Documented cancelled John Garcia, PT [address], [place], [address], [facility] 10/31/2023 13:57:08 4 24711 Therapeutic Exercise (1:1) completed Johnelayne Garcia, PT [address], [place], [address], [facility] 10/29/2023 08:19:30 4 23934: Low complexity PT Eval completed John Garcia, PT [address], [place], [address], [facility] 10/29/2023 08:19:23 4 G8417 BMI Above Upper Parameters, F/U Documented completed Nicolas Pyser, PT [address], [place], [address], [facility] 10/30/2023 11:40:34 4 G8427 Current Medication Documented completed Nicolas Jorge, PT [address], [place], [address], [facility] 10/30/2023 11:40:55 Imaging Results Imaging Date Name [...] Name and Address Organization Details Recorded Time 51467 Motrin medicatio n Not available Not available Not available 10/02/2023200748 8 RxNorm Aller gyRea ction : 'Naus ea/Vo mitin g/Jyoce rrhea '; Not Available [facility] 4 13:52:29 84555 Bactrim medicatio n Not available Not available Not available 10/02/20232007 21957 9 RxNorm Aller gyRea ction : 'Skin React ion'; Not Available [facility] 4 13:52:29 77929 Substance with sulfonami de structure and antibacte rial mechanism of action (substanc e) medicatio n Not available Not available Not available 10/02/20232015 42156 8003 SNOMED Not Available [facility] 4 13:52:29 Medications Name Sig Start Date Stop [...] Diagnosis/Indication Diagnosis SNOMED-CT Code Diagnosis ICD10 Code Diagnosis Note [id number] Joselito Hinojosa PA-C [facility] [address] [place] [address] 10/30/2023 11:33:03 10/30/2023 11:49:11 Impingement syndrome of right shoulder region [id number] 52917 M75.41 [id number] Nicolas Pyser, PT [facility] [address] [place] [address] 01/03/2024 11:13:01 01/03/2024 12:27:21 Impingement syndrome of right shoulder region [id number] 93397 M75.41 [id number] Nicolas Pyser, PT [facility] [address] [place] [address] 03/26/2024 11:15:07 03/26/2024 12:11:48 Impingement syndrome of right shoulder region [id number] 22292 M75.41 [id number] Nicolas Pyser, PT [facility] [address] [place] [address] 03/28/2024 11:23:57 03/28/2024 12:13:50 Impingement syndrome of right shoulder region [id number] 11472 M75.41 [id number] Nicolas Pyser, PT [facility] [address] [place] [address] 04/08/2024 10:41:43 04/08/2024 11:34:28 Impingement syndrome of right shoulder region [id number] 27079 M75.41 [id number] Nicolas Pyser, PT [facility] [address] [place] [address] 04/10/2024 10:57:16 04/10/2024 12:17:30 Impingement syndrome of right shoulder region [id number] 00422 M75.41 [id number] Nicolas Jorge, PT [facility] [address] [place] [address] 04/15/2024 10:31:52 04/15/2024 13:05:19 Impingement syndrome of right shoulder region [id number] 15528 M75.41 Health Concerns Section Related Observation LastModified by Organization Detai ls LastModified Time None Recorded Concern Status LastModified by Organization Details LastModified Time None Recorded Advance Directives Directive None Recorded Payers Encounter Date Sequence Insurance Name Policy Number Policy Aguilar Covered Member ID Aguilar Member ID Guarantor Name 03/26/2024 1 [employer] (MEDICARE REPLACEMENT PPO) [id number] Bhumi Narayan [id number] Bhumi Cappas 03/26/2024 2 [place] [facility] Bhumi Capdawns [id number] Bhumi Cappas 03/28/2024 1 [employer] (MEDICARE REPLACEMENT PPO) [id number] Bhumi Capdawns [id number] Bhumi Cappas 03/28/2024 2 [place] [facility] Bhumi Capdawns [id number] Bhumi Cappas 04/08/2024 1 [employer] (MEDICARE REPLACEMENT PPO) [id number] Bhumi Capdawns [id number] Bhumi Cappas 04/08/2024 2 [place] [facility] Bhumi Capdawns [id number] Bhumi Cappas 04/10/2024 1 [employer]ET[employer] (MEDICARE RE[place]ACEMENT [place]) [id number] Bhumi Capdawns [id number] Bhumi Cappas 04/10/2024 2 [place] [facility] Bhumi Cappas [id number] Bhumi Cappas 04/15/2024 1 [employer]ET[employer] (MEDICARE REPLACEMENT PPO) [id number] Bhumi Cappas [id number] Bhumi Cappas 04/15/2024 2 [place] [facility] Bhumi Garcias [id number] Bhumi Capdawns Notes Date Note Type Note Provider Name [...] Jorge, PT [address], [place], [address], [facility] 03/26/2024 12:07:17 03/28/2024 text/html Pt reports 7/10 pain. Devendra Mendiola, NEUROSURGICAL NURSE [address], [place], [address], [facility] 03/28/2024 15:11:37 04/08/2024 text/html Pt reports 8/10 pain. Shoulder feels stiffer today. Devendra Mendiola, NEUROSURGICAL NURSE [address], [place], [address], [facility] 04/08/2024 14:20:22 04/10/2024 text/html Pt reports 8/10 pain. Shoulder feels stiffer today. Devendra Mendiola, NEUROSURGICAL NURSE [address], [place], [address], [facility] 04/10/2024 12:02:40 04/15/2024 text/html Pt reports 7/10 pain. Its moving better Devendra Mendiola, NEUROSURGICAL NURSE [address], [place], [address], [facility] 04/15/2024 11:31:08 OBGyn Episode No OBEpisode recorded.
--- OUTSIDE RECORDS SUMMARY | 2024-11-14 09:47 | XMS_ITS | Clinical Summary ---
Author Organization [facility] Address [address] [place] [address] [address] [place] [address] Care Team Providers Care Custom Frame Assembler Name Role Phone Unavailable Primary Care Provider Unavailabl e Allergies Active Allergy Reactions Criticality Noted Date Comments Aspirin 08/13/2015 Other reaction(s): Unknown Ibuprofen 10/28/2022 Other reaction(s): Breathing problem, GI upset Prochlorperazine 10/28/2022 Other reaction(s): unknown Sulfa Antibiotics 10/28/2022 Other reaction(s): Breathing problem Sulfamethoxazole-Trimethoprim 2022 Other reaction(s): bruising Trimethoprim Hives 08/13/2015 Medications acetaminophen (Mapap Arthritis Pain) 650 MG ER tablet Take 1,300 mg by mouth. 2 Active acetaminophen (Tylenol 8 Hour) 650 MG ER tablet TAKE 2 TABLETS BY MOUTH EVERY 8 HOURS NEEDED FOR PAIN 3 Active albuterol 108 (90 Base) MCG/ACT inhaler INHALE 2 PUFFS 4 TIMES A DAY NEEDED FOR SHORTNESS OF BREATH OR WHEEZING 4 Active albuterol (ProAir HFA) 108 (90 Base) MCG/ACT inhaler inhale 2 puff by inhalation route every 4 hours as needed Active Aspirin 81 MG capsule Take 81 mg by mouth. 3 Active benzonatate (Tessalon) 100 MG capsule TAKE 1 CAPSULE BY MOUTH 3 TIMES A DAY FOR 7 DAYS 3 Active cetirizine (ZyrTEC) 10 MG tablet TAKE 1 TALET ORALLY DAILY FOR 30 DAYS 4 Active Diclofenac Sodium 1 % gel USE 1 APPLICATION TOPICALLY 4 TIMES A DAY NEEDED MODERATE PAIN 3 Active hydrOXYzine HCl (Atarax) 25 MG tablet Take 25 mg by mouth if needed in the morning and at bedtime. 3 Active lidocaine (Lidoderm) 5 % patch Apply 1 patch topically. 2 Active melatonin 3 MG tablet Take 3 mg by mouth. 2 Active phenazopyridine (Pyridium) 100 MG tablet TAKE 1 TABLET BY MOUTH EVERY 8 HOURS FOR 6 DAYS 3 Active predniSONE (Deltasone) 20 MG tablet TAKE 2 TABS DAILY X 5 DAYS, THEN 1 TABLET DAILY X 5 DAYS 4 Active traMADol (Ultram) 50 MG tablet TAKE 1 TABLET BY MOUTH TWICE A DAY FOR SEVERE PAIN 4 Active Active Problems Problem Noted Date Diagnosed Date Retained dental root 09/07/2023 Social History Tobacco Use Types Packs/Day Years Used Date Smoking Tobacco: Never Smokeless Tobacco: Never Tobacco Cessation:Counseling Given: Not Answered Alcohol Use Standard Drinks/Week Comments Never 0 (1 standard drink = 0.6 oz pur e alcohol) Comments Unknown Sex and Gender Information Value Date Recorded Sex Assigned at Female 05/30/2022 10:24 AM EDT Legal Sex Female 10:24 AM EDT Gender Identity Female 05/30/2022 10:24 AM EDT Sexual Orientation Straight 05/30/2022 10 :24 AM EDT Last Filed Vital Signs Vital Sign Reading Time Taken Comments Blood Pressure 124/62 12/28/2023 10:34 AM EDT Pulse 69 01/25/2023 1:26 PM EDT Temperature - - Respiratory Rate - - Oxygen Saturation - - Inhaled Oxygen Concentration - - Weight - - Height - - Body Mass Index - - Plan of Treatment Health Maintenance Due Date Last Done Comments CT Colonography 1962 Colonoscopy 1962 Colorectal Cancer Screening 1962 Dental Oral Exam 1962 Dental Prophylaxis 1962 Dental X-Ray: Bitewings 1962 Dental X-Ray: Full Mouth 1962 Depression Screening 1962 FIT DNA/Cologuard 1962 FIT 1962 FOBT 1962 HIV Screening 1962 SDOH Screening 1962 Sigmoidoscopy 1962 Alcohol/Substance Use Screening 1974 Hepatitis C Screening 1980 Pap Smear 1983 Cervical Cancer Screening 1992 HPV/Cotest 1992 Mammogram 2002 Zoster Vaccines (1 of 2) 2012 RSV Patients and Patients Aged 60 years or older (1 - Risk 60-74 years 1-dose series) 2022 COVID-19 Vaccine ( season) 2024 08/11/2021, 10/30/2020, 10/02/2020 Influenza Vaccine (#1) 2024 , 04/29/2022, 04/29/2022, Additional history exists DTaP/Tdap/Td Vaccines (2 - Td or Tdap) 04/23/2024 04/23/2014, 12/10/2008, 12/10/2008 Tobacco Screening 02/11/2025 02/12/2024 Hepatitis B Vaccines Completed 01/09/2013, 12/11/2012, 04/10/2012, Additional history exists Pneumococcal Vaccine: 50+ Years Completed 01/24/2023, 07/18/2006 HIB Vaccines Aged Out No longer eligi [...] patient's age to complete this topic Meningococcal Vaccine Aged Out No kennedy mitchell eligible based on patient's age to complete this topic RSV under 20 months Aged Out No longe r eligible based on patient's age to complete this topic Rotavirus Vaccines Aged Out No longer eligible based on patient's age to complete this topic [facility] [address] [place] [phone] [place] [phone] [place] [id number]
== END 2024-11-12 08:58 | disposition home or self-care (01) ==
LOC: HO.LNP 08:57
PROVIDERS: Visit Provider Urology
DX: N20.0 Calculus of kidney (principal)
CPT/HCPCS: 82365; 88300

== ENCOUNTER 2025-01-22 09:53 | Outpatient (AMB) | payer MEDICARE, MEDICAID, SELFPAY ==
[2025-01-22 09:59] VITALS: BP 140/86; PULSE 75; O2SAT 98; BMI 35.1
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
--- OUTSIDE RECORDS SUMMARY | 2025-01-22 11:19 | XMS_ITS | Encounter Summary ---
Author Organization [facility] [facility] Address [address] [place] [address] Care Team Providers Care Lion Tamer Name Role Phone Unavailable Primary Care Provider Unavailabl e Encounter Details Date Type Department Care Team (Latest Contact Info) Description 11/19/2018 Abstract [facility] CONVERSIONS Dental, Provider, DDS Social History [...]
== END 2025-01-22 10:21 | disposition home or self-care (01) ==
LOC: HO.HPS 09:53
PROVIDERS: PCP Physician Assistant Medical; Visit Provider Hospitalist
DX: J45.51 Severe persistent asthma with (acute) exacerbation (principal); J30.9 Allergic rhinitis, unspecified; T78.40XD Allergy, unspecified, subsequent encounter; R93.89 Abnormal findings on diagnostic imaging of other specified body structures
CPT/HCPCS: 99214; G2211

== ENCOUNTER → 2025-01-22 09:53 | Outpatient (BNVA) | payer MEDICARE, MEDICAID, SELFPAY | PROVIDERS: PCP Physician Assistant Medical; Visit Provider Hospitalist | DX: J45.41 Moderate persistent asthma with (acute) exacerbation (principal); R93.89 Abnormal findings on diagnostic imaging of other specified body structures; J30.9 Allergic rhinitis, unspecified; T78.40XD Allergy, unspecified, subsequent encounter | CPT/HCPCS: 99212 ==

== ENCOUNTER 2025-06-24 09:42 | Outpatient (REF) | payer MEDICARE, MEDICAID, SELFPAY ==
--- NOTE | ~2025-06-24 | US_ITS ---
EXAMINATION: US KIDNEY BILATERAL HISTORY: N39.0 - Urinary tract infection, site not specified TECHNIQUE: Real-time grayscale ultrasound imaging of the kidneys was performed and images were reviewed. COMPARISON: Comparison is made with the prior examination dated 03/15/2024. FINDINGS: Right kidney: The right kidney measures 10.3 x 5.5 x 4.8 cm. Renal parenchymal echotexture and thickness are normal. There are no masses. There is no hydronephrosis or renal calculi. Left Kidney: The left kidney measures 12.3 x 5.9 x 3.9 cm. Renal parenchymal echotexture and thickness are normal. There are no masses. There are tiny nonshadowing echogenic foci which may represent vessels. No definite calculi. There is mild fullness of the renal pelvis. US/US renal BI IMPRESSION: Mild fullness of the left renal pelvis. No definite renal calculi. Electronically signed by: Sushant Bautista MD 06/24/2025 10:18 AM SHIVAM
--- OUTSIDE RECORDS SUMMARY | 2025-06-24 11:24 | XMS_ITS | Encounter Summary ---
Author Organization [facility] Address [address] [place] [address] Care Team Providers Care Engineering Instructor Name Role Phone Unavailable Primary Care Provider Unavailabl e Encounter Details Date Type Department Care Team (Latest Contact Info) Description 11/19/[address] [facility] CONVERSIONS Dental, Provider, DDS Social History Tobacco [...]
--- OUTSIDE RECORDS SUMMARY | 2025-06-24 11:24 | XMS_ITS | Clinical Summary ---
Author Organization [address] [place] [address] [place] [id number] Phone Care Team Providers Care Fuel Efficient Automobile Designer Name Role Phone Unavailable Primary Care Provider [...] Asthma DX:Asthma Anxiety DX:Anxiety Bipolar 2 disorder ([facility] V24, CMS/HCC V28) DX:Bipolar 2 disorder ([facility]) Migraine 06/10/2014 DX:Migraine IBS (irritable bowel syndrome) [...] Last Done Comments Breast Cancer Screening 1960 Colorectal Cancer Screening: Colonoscopy 1960 Pneumococcal Vaccine: 50+ Years (2 of 2 - PCV) 07/18/2007 07/18/2006 RSV Immunization Adult Patients (1 - Risk 50-74 years 1-dose series) 2012 Zoster Vaccines (1 of 2) 2012 DTaP,Tdap,and Td Vaccines (2 - Td or Tdap) 12/10/2018 12/10/2008 Depression Screening 07/31/2024 Cholesterol Screening (Lipid Panel) 11/12/2024 HIV Screening 11/12/2024 Hepatitis C Screening 11/12/2024 Hypertension/CHF/CAD Annual BMP Blood Test 11/12/2024 Medicare Annual Wellness Visit 11/12/2024 Social Influencers of Health Screening 11/12/2024 COVID-19 Vaccine ( - season) 2025 Influenza Vaccine (#1) 2025 Hepatitis B Vaccines Completed 01/09/2013, 12/11/2012, [...] Documents on File Type Date Recorded 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 Health Care Decision (hx) 09/23/2010 AD ANGIE DIRECTIVE
--- OUTSIDE RECORDS SUMMARY | 2025-06-24 11:24 | XMS_ITS | Encounter Summary ---
Author Organization [employer] [facility] Address [address] [place] [address] Care Team Providers Care Bar Helper Name Role Phone Unavailable Primary Care Provider Unavailabl e Encounter Details Date Type Department Care Team (Latest Contact Info) Description 03/25/2022 Abstract C CONVERSIONS Dental, Provider, DDS Social History Tobacco [...]
--- OUTSIDE RECORDS SUMMARY | 2025-06-24 11:24 | XMS_ITS | Clinical Summary ---
Author Organization [employer] [facility] Address [address] [place] [address] Care Team Providers Care Lace Mender Name Role Phone Unavailable Primary Care Provider [...] Screening 1960 SDOH Screening 1962 Sigmoidoscopy 1962 Disability Screening 1962 Alcohol/Substance Use Screening 1974 Hepatitis C Screening 1980 Pap Smear 1983 Cervical Cancer Screening 1992 HPV/Cotest 1992 Mammogram 2002 RSV Patients and Patients Aged 60 years or older (1 - Risk 50-74 years 1-dose series) 2012 Zoster Vaccines (1 of 2) 2012 DTaP/Tdap/Td Vaccines (2 - Td or Tdap) 04/23/2024 04/23/2014, 12/10/2008, 12/10/2008, Additional history exists Tobacco Screening 02/11/2025 02/12/2024 COVID-19 Vaccine ( season) 2025 08/11/2021, 10/30/2020, 10/02/2020 Influenza Vaccine (#1) 2025 , 04/29/2022, 04/29/2022, Additional history exists Hepatitis B Vaccines Completed 01/09/2013, 12/11/2012, 04/10/2012, [...] patient's age to complete this topic Insurance [facility] [facility] [place] [phone] [place] [phone] [place] [id number] [place] [id number]
== END 2025-06-24 09:43 | disposition home or self-care (01) ==
LOC: HO.US 09:42
PROVIDERS: PCP Physician Assistant Medical; Visit Provider Urology
DX: N20.0 Calculus of kidney (principal); N39.0 Urinary tract infection, site not specified
CPT/HCPCS: 76775

== ENCOUNTER → 2025-06-24 09:50 | Outpatient (BNV) | payer MEDICARE, MEDICAID, SELFPAY | PROVIDERS: PCP Physician Assistant Medical; Visit Provider Radiology Diagnostic Radiology | DX: N39.0 Urinary tract infection, site not specified (principal) | CPT/HCPCS: 76775 ==

== ENCOUNTER 2025-07-11 11:04 | Outpatient (AMB) | payer MEDICARE, MEDICAID, SELFPAY ==
--- NOTE | 2025-07-11 11:16 | MHC.OFFVIS ---
Intake Visit Reasons: Ultrasound/Pain/UA(set) Intake Note: Reason for Visit: Ultrasound/Pain Follow Up Urology Meds: Vitamin B6, Blood Thinners: None Labs: None Imaging: Renal Ultrasound- 06/24/25 Abdomen/Pelvis CT- 06/08/2025 Last PVR: None Sales Representative Womens Health Required: No Accompanied by: Self / Same As Patient Allergies aspirin (ASPIRIN) Allergy (Unknown, Verified 07/11/25 11:20) STOMACH ISSUES ibuprofen (From MOTRIN) Allergy (Unknown, Verified 07/11/25 11:20) STOMACH ISSUES prochlorperazine (From COMPAZINE) Allergy (Unknown, Verified 07/11/25 11:20) NERVOUS Sulfa (Sulfonamide Antibiotics) Allergy (Unknown, Verified 07/11/25 11:20) unknown Compazine Allergy (Unknown, Uncoded 07/11/25 11:20) unknown Motrin Allergy (Unknown, Uncoded 07/11/25 11:20) unknown HPI Comments Details: Bhumi Narayan is a very pleasant female. She is a patient of [facility]. She is seen for the following conditions - nephrolithiasis - recurring UTI - renal cyst Recent imaging no stones. Stable left cyst Continue vitamin B6 12 month follow-up imaging Nephrolithiasis/Urolithiasis: Further evaluation of nephrolithiasis Urolithiasis was diagnosed a number of years ago 2004. The patient previously had kidney stones whose composition w unknown. Laboratory investigations include Base line serum evaluation, January 2016 - Normocalcemia (9.0), Normal PTH, Normal uric acid. 24 Hour urine evaluation January 2016 - , Low Urine volume < 2.0 liters, Low calcium < 200, Low Oxalate < 30 - pH 6.30 Apr 2016 - , Low Urine volume < 2.0 liters - but otherwise ok. Prior treatment(s) include left, ureteroscopy - a number of years ago. Prior imaging includes 11/14 , a renal ultrasound, showing no evidence of stones 12/15 , a renal ultrasound, showing no evidence of stones 05/17 , a renal ultrasound ? 4mm Right 05/18 , a renal ultrasound - multiple bilateral cysts, no evidence of stone. - 07/19 renal ultrasound, bilateral multiple cysts up to 1.4 cm. Question of 5 mm stone on the left - 08/21 renal ultrasound 12 mm left cyst, 8 mm left stone - 01/19 renal ultrasound left 5 mm - 02/19 renal ultrasound no definitive stones - 02/20 renal ultrasound no stones Current therapeutic plan will be General advice to maintain good fluid intake for urine greater than 1.5 L per day, reduce salt and reduce protein and acid loads was provided [facility] Medical History Abnormal chest x-ray Chronic allergic rhinitis Allergies Asthma Sleep apnea Neuropathy Headache, migraine HTN (hypertension) Acute cystitis without hematuria Mixed incontinence Flank pain Surgical History History of surgery Social History Patient Tobacco Use Status: Never used Tobacco Tobacco use type: Cigarette Years Smoked: 40 Years Review of Systems Const Denies chills and Denies fever(s) Card Reports no additional complaints and Denies syncope Resp Denies cough GI Denies abdominal pain and Denies heartburn Reports as per HPI and Denies change in libido Neuro Denies syncope Psych Denies change in libido Endo Denies change in libido Physical Exam Const General: cooperative, healthy appearing, comfortable and no acute distress Orientation/consciousness: patient oriented x3 HEENT Face and sinus: Yes normal facial exam Mouth: moist mucous membranes Neck Neck: Yes normal visual inspection, Yes full ROM and Yes trachea midline Chest Chest palpation & inspection: normal inspection of the chest Resp Effort & Inspection: normal respiratory effort, able to speak in complete sentences and no respiratory distress GI Inspection: Yes normal to inspection Back/Spine/Pelvis Cervical Spine: normal cervical lordosis Thoracic/Lumbar Spine: thoracic and lumbar spine normal to inspection Skin General skin exam: no rashes or lesions noted Neuro General: patient oriented x3, gait normal, tone normal and moves all extremities Extrem General: Yes normal to inspection and Yes capillary refill normal Assessment & Plan Assessment & Plan (1) Nephrolithiasis: Code(s): N20.0 - Calculus of kidney Category: Medical Plan Twelve month follow-up imaging Orders: Orders XR KUB 12 Months N20.0 - Calculus of kidney Medications: Refilled pyridoxine (vitamin B6) 50 mg PO DAILY 90 tabs 3RF 90 days N20.0 - Calculus of kidney Patient Instructions: This note is constructed using voice recognition software. While every effort has been made to ensure accuracy auger operator errors may have been included. Imaging studies, laboratory and physical exam results were discussed and reviewed in detail. No major barriers to patient understanding were identified. An opportunity to ask questions regarding the treatment plan was provided. All questions were answered. The patient expressed understanding and agreement with the above treatment plan. The patient is aware they should contact our office by phone for worsening of their current condition or the appearance of new urologic symptoms. Compliance is encouraged with any medications and followup testing that is ordered. It is a privilege to participate in the urologic care of your patient. If you have any questions or concerns regarding treatment for the above conditions, or other urologic issues, please do not hesitate to contact me. The office telephone contact is [phone]. Sincerely, Dr Gomez Houston MD, [facility] - Urology Compassionate Specialist Care for the Genitourinary System Coding Level of Care Code Est Pt Level 4 (18316) Diagnoses Nephrolithiasis N20.0
== END 2025-07-11 11:39 | disposition home or self-care (01) ==
LOC: HO.HUSH 11:05
PROVIDERS: PCP Physician Assistant Medical; Visit Provider Urology
DX: N20.0 Calculus of kidney (principal)
CPT/HCPCS: 99214

== ENCOUNTER → 2025-07-11 11:04 | Outpatient (BNVA) | payer MEDICARE, MEDICAID, SELFPAY | PROVIDERS: PCP Physician Assistant Medical; Visit Provider Urology | DX: N20.0 Calculus of kidney (principal); Z79.899 Other long term (current) drug therapy | CPT/HCPCS: 99212 ==

== ENCOUNTER 2025-07-16 10:08 | Outpatient (AMB) | payer MEDICARE, MEDICAID, SELFPAY ==
[2025-07-16 10:27] VITALS: BP 132/90; PULSE 83; O2SAT 97; BMI 34.8
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
--- OUTSIDE RECORDS SUMMARY | 2025-07-16 12:22 | XMS_ITS | Encounter Summary ---
Author Organization [facility] Address [address] [place] [address] Care Team Providers Care Shearer Printed Circuit Boards Name Role Phone Unavailable Primary Care Provider [...]
--- OUTSIDE RECORDS SUMMARY | 2025-07-16 12:22 | XMS_ITS | Clinical Summary ---
Author Organization [facility] Address [address] [place] [address] Care Team Providers Care Safety And Health Consultant Name Role Phone Unavailable Primary Care Provider [...] patient's age to complete this topic Insurance [facility] [address] [place] [id number] [place] [id number] [place] [id number] [place] [id number]
--- OUTSIDE RECORDS SUMMARY | 2025-07-16 12:22 | XMS_ITS | Clinical Summary ---
Author Organization [address] [place] [address] [place] [phone] Phone Care Team Providers Care Provider Contracting Consultant Name Role Phone Unavailable Primary Care [...] Asthma DX:Asthma Anxiety DX:Anxiety Bipolar 2 disorder ([facility] V24, CMS/HCC V28) DX:Bipolar 2 disorder ([facility]) Migraine 06/10/2014 DX:Migraine IBS (irritable bowel syndrome) [...] on file Sexual Orientation Not on file Plan of Treatment Health Maintenance Due Date [...] Documents on File Type Date Recorded Patient Cyber Ops Planner Expl [facility] Health Care Decision (hx) 09/23/2010 AD ANGIE DIRECTIVE
--- OUTSIDE RECORDS SUMMARY | 2025-07-16 12:22 | XMS_ITS | Encounter Summary ---
Author Organization [facility] Address [address] [place] [address] Care Team Providers Care Sand Screener Name Role Phone Unavailable Primary Care Provider Unavailabl e Encounter Details Date Type Department Care Team (Latest Contact Info) Description 11/19/[address] [facility] CONVERSIONS Dental, Provider, DDS Social History [...]
--- OUTSIDE RECORDS SUMMARY | 2025-07-16 12:23 | XMS_ITS | Data Portability ---
Author Organization [facility] Address [address] [place] [address] Care Team Providers Care Customs Collector Name Role Phone DEVENDRA HINOJOSA Referring Provider Assessment Encounter Date Assessment Date Assessment LastModified [...] By Organization Details Last Modified Time 03/26/2024 [id number] 3 weeks of Right Shoulder PROM motion: [...] deg.) Not available Not available Not available ward clerk goal of Right Shoulder PROM WNL Not available Not available Not available [facility] goal of Right Shoulder Strength (normal) strength: shoulders: internal rotation: right 5 (0-5) Not available Not available Not available ward clerk goal of Right Shoulder Strength (normal) strength: shoulders: external rotation: right: at 0 degrees of abduction 5 (0-5) Not available Not available Not available ward clerk goal of Right Shoulder Strength (normal) strength: shoulders: flexion: right 5 (0-5) Not available Not available Not available 3 weeks of Sleeping no trouble sleeping Not available Not available Not available 3 weeks of Overall ADL's WFL Not available Not available Not available ward clerk goal of Overall ADL's unlimited Not available Not available Not available [facility] goal of Reaching performs without symptoms Not available Not available Not available ward clerk goal of Lifting performs without symptoms Not available Not available Not available 3 weeks of Pain <5/10 Not available Not available Not available ward clerk goal of Pain 0/10 Not available Not available Not available Patient InstructionsNo instructions recorded. Reason for Referral None Reported. Results Created Date Observation Date Name Description Value Unit Range Abnormal Flag Note LastModifiedBy Organization Detail LastModifiedTime 03/29/20 24 03/25/2022 imagi ng/di floros tic resul t No observ ation record ed. [email or web address] Not Available 03/02 09:01:19 08 24 03/28/2022 imagi ng/di agnos tic resul t No observ ation record ed. [email or web address] Not Available 03/02 09:01:20 Result Notes None recorded. Procedures Surgical History Date Name Laterality Status Provider Name and Address Organization Details Recorded Time 4 05890 Therapeutic Exercise (1:1) cancelled Nicolas Mccurdyser, PT [address], [place], [address], [facility] 04/24/2024 21:21:19 4 96659: Manual therapy cancelled Nicolas Mccurdyser, PT [address], [place], [address], [facility] 04/24/2024 21:21:19 4 21141 Therapeutic Exercise (1:1) completed Devendra Scageoffri, DRAGLINE ENGINEER [address], [place], [address], [facility] 04/15/2024 11:29:14 4 50312: Manual therapy completed Devendra Roblerori, DRAGLINE ENGINEER [address], [place], [address], [facility] 04/15/2024 11:29:14 4 20197 Therapeutic Exercise (1:1) completed Devendra Scafuri, DRAGLINE ENGINEER [address], [place], [address], [facility] 04/10/2024 12:00:38 4 93285: Manual therapy completed Devendra Scageoffri, DRAGLINE ENGINEER [address], [place], [address], [facility] 04/10/2024 12:00:38 4 20203 Therapeutic Exercise (1:1) completed Devendra Scafuri, DRAGLINE ENGINEER [address], [place], [address], [facility] 04/08/2024 07:01:35 4 16390: Manual therapy completed Devendra Scafuri, DRAGLINE ENGINEER [address], [place], [address], [facility] 04/08/2024 07:01:35 4 30605 Therapeutic Exercise (1:1) cancelled Nicolas Pyser, PT [address], [place], [address], [facility] 04/02/2024 15:14:54 4 53472: Manual therapy cancelled Nicolas Pyser, PT [address], [place], [address], [facility] 04/02/2024 15:14:54 4 27638 Therapeutic Exercise (1:1) completed Devendra Jimenezfuri, DRAGLINE ENGINEER [address], [place], [address], [facility] 03/28/2024 14:02:15 4 60270: Manual therapy completed Devendra Jimenezfuri, DRAGLINE ENGINEER [address], [place], [address], [facility] 03/28/2024 14:02:30 4 61503 Therapeutic Exercise (1:1) completed Nicolas Pyser, PT [address], [place], [address], [facility] 03/25/2024 08:20:24 4 93538: Low complexity PT Eval completed Nicolas Pyser, PT [address], [place], [address], [facility] 03/26/2024 12:06:06 4 32697 Therapeutic Exercise (1:1) cancelled Nicolas Pyser, PT [address], [place], [address], [facility] 01/18/2024 13:18:07 4 07216 Therapeutic Exercise (1:1) cancelled Nicolas Pyser, PT [address], [place], [address], [facility] 01/15/2024 21:29:52 4 21812: Low complexity PT Eval cancelled Nicolas Pyser, PT [address], [place], [address], [facility] 01/15/2024 21:29:52 4 72044 Therapeutic Exercise (1:1) cancelled Nicolas Pyser, PT [address], [place], [address], [facility] 01/04/2024 13:19:16 4 71815: Low complexity PT Eval cancelled Nicolas Pyser, PT [address], [place], [address], [facility] 01/04/2024 13:19:16 4 33613 Therapeutic Exercise (1:1) completed Nicolas Pyser, PT [address], [place], [address], [facility] 01/02/2024 19:10:52 4 99428: Low complexity PT Eval completed Nicolas Pyser, PT [address], [place], [address], [facility] 01/02/2024 19:11:01 4 55308 Therapeutic Exercise (1:1) cancelled John Florek, PT [address], [place], [address], [facility] 11/07/2023 07:29:29 4 11358: Low complexity PT Eval cancelled John Florek, PT [address], [place], [address], [facility] 11/07/2023 07:29:29 4 G8417 BMI Above Upper Parameters, F/U Documented cancelled John Florek, PT [address], [place], [address], [facility] 11/07/2023 07:29:29 4 G8427 Current Medication Documented cancelled John Florek, PT [address], [place], [address], [facility] 11/07/2023 07:29:29 4 25589 Therapeutic Exercise (1:1) cancelled John Florek, PT [address], [place], [address], [facility] 10/31/2023 13:57:08 4 97652: Low complexity PT Eval cancelled Johnelayne Shermanek, PT [address], [place], [address], [facility] 10/31/2023 13:57:08 4 G8417 BMI Above Upper Parameters, F/U Documented cancelled John Florek, PT [address], [place], [address], [facility] 10/31/2023 13:57:08 4 G8427 Current Medication Documented cancelled John Florek, PT [address], [place], [address], [facility] 10/31/2023 13:57:08 4 57053 Therapeutic Exercise (1:1) completed John Florek, PT [address], [place], [address], [facility] 10/29/2023 08:19:30 4 02620: Low complexity PT Eval completed John Florek, PT [address], [place], [address], [facility] 10/29/2023 08:19:23 4 G8417 BMI Above Upper Parameters, F/U Documented completed Nicolas Pyser, PT [address], [place], [address], [facility] 10/30/2023 11:40:34 4 G8427 Current Medication Documented completed Nicolas Jorge, PT [address], [place], [address], [facility] 10/30/2023 11:40:55 Imaging Results None recorded. Procedure Notes None recorded. Medical Equipment None Reported. Allergies Allergen ID Allergen Name Allergen Category Reaction Reaction Severity Criticality Documentation Date Start Date Code Code System Note Provider Name and Address Organization Details Recorded Time 82512 Motrin medicatio n Not available Not available Not available 10/02/2023200748 8 RxNorm Aller gyRea ction : 'Naus ea/Vo mitin g/Joyce rrhea '; Not Available [facility] 4 13:52:29 53057 Bactrim medicatio n Not available Not available Not available 10/02/20232007 73995 9 RxNorm Aller gyRea ction : 'Skin React ion'; Not Available [facility] 4 13:52:29 92703 Substance with sulfonami de structure and antibacte rial mechanism of action (substanc e) medicatio n Not available Not available Not available 10/02/20232015 74927 8003 SNOMED Not Available [facility] 4 13:52:29 Medications Name Sig Start Date [...] Diagnosis SNOMED-CT Code Diagnosis ICD10 Code Diagnosis IMO Codes Diagnosis Note [id number] Nicolas oJrge, PT [facility] [address] [place] [address] 10/30/2023 11:33:03 10/30/2023 11:49:11 Impingement syndrome of right shoulder region [id number] 47452 M75.41 [id number] Nicolas Mccurdyser, PT [facility] [address] [place] [address] 01/03/2024 11:13:01 01/03/2024 12:27:21 Impingement syndrome of right shoulder region [id number] 74109 M75.41 [id number] Nicolas Mccurdyser, PT [facility] [address] [place] [address] 03/26/2024 11:15:07 03/26/2024 12:11:48 Impingement syndrome of right shoulder region [id number] 86529 M75.41 [id number] Devendra Jimenezgeoffri, DRAGLINE ENGINEER [facility] [address] [place] [address] 03/28/2024 11:23:57 03/28/2024 12:13:50 Impingement syndrome of right shoulder region [id number] 34294 M75.41 [id number] Devendra Roblerori, DRAGLINE ENGINEER [facility] [address] [place] [address] 04/08/2024 10:41:43 04/08/2024 11:34:28 Impingement syndrome of right shoulder region [id number] 57076 M75.41 [id number] Devendra Roblerori, DRAGLINE ENGINEER [facility] [address] [place] [address] 04/10/2024 10:57:16 04/10/2024 12:17:30 Impingement syndrome of right shoulder region [id number] 85799 M75.41 [id number] Devendra Jimenezgeoffri, DRAGLINE ENGINEER [facility] [address] [place] [address] 04/15/2024 10:31:52 04/15/2024 13:05:19 Impingement syndrome of right shoulder region [id number] 75315 M75.41 Health Concerns Section Related Observation LastModified by Organization Detai ls LastModified Time None Recorded Concern Status LastModified by Organization Details LastModified Time None Recorded Advance Directives Directive None Recorded Payers Insurance Date Sequence Insurance Name Policy Number Policy Aguilar Covered Member ID Aguilar Member ID Guarantor Name 05/07/2024 1 [employer] (MEDICARE REPLACEMENT/A DVANTAGE - PPO) [id number] Bhumi Narayan [id number] Bhumi Narayan 11/02/2023 1 [place] [email or web address] Bhumi Narayan [id number] Bhumi Narayan 07/04/2024 2 [place] [facility] Bhumi Narayan [id number] Bhumi Narayan Notes Date Note Type Note Provider Name and Address Organization Details Recorded Time 03/26/2024 text/html 64 yo female status post left shoulder SAD/DCE and debridement by Dr. Cordova in August 2022. Reports doing well with only some minor discomfort. Current c/o Right shoulder, has progressively gotten more painful with use particular w reach away from the body or overhead. Denies any trauma or injury. Last saw PA-C 09/26/23 who noted moderate bursal irritability, with [...] to reach overhead. Anamaria Jorge, PT [address], [place], [address], [facility] 03/26/2024 12:07:17 03/28/2024 text/html Pt reports 7/10 pain. Devendra Mendiola, DRAGLINE ENGINEER [address], [place], [address], [facility] 03/28/2024 15:11:37 04/08/2024 text/html Pt reports 8/10 pain. Shoulder feels stiffer today. Devendra Mendiola, DRAGLINE ENGINEER [address], [place], [address], [facility] 04/08/2024 14:20:22 04/10/2024 text/html Pt reports 8/10 pain. Shoulder feels stiffer today. Devendra Mendiola DRAGLINE ENGINEER [address], [place], [address], [facility] 04/10/2024 12:02:40 04/15/2024 text/html Pt reports 7/10 pain. Its moving better Devendra Mendiola DRAGLINE ENGINEER [address], [place], [address], [facility] 04/15/2024 11:31:08 OBGyn Episode No OBEpisode recorded.
== END 2025-07-16 10:51 | disposition home or self-care (01) ==
LOC: HO.HPS 10:09
PROVIDERS: PCP Physician Assistant Medical; Visit Provider Hospitalist
DX: J45.51 Severe persistent asthma with (acute) exacerbation (principal); J30.9 Allergic rhinitis, unspecified; T78.40XD Allergy, unspecified, subsequent encounter; R93.89 Abnormal findings on diagnostic imaging of other specified body structures
CPT/HCPCS: 99214

== ENCOUNTER → 2025-07-16 10:08 | Outpatient (BNVA) | payer MEDICARE, MEDICAID, SELFPAY | PROVIDERS: PCP Physician Assistant Medical; Visit Provider Hospitalist | DX: J45.51 Severe persistent asthma with (acute) exacerbation (principal); R93.89 Abnormal findings on diagnostic imaging of other specified body structures; T78.40XD Allergy, unspecified, subsequent encounter; Z79.899 Other long term (current) drug therapy | CPT/HCPCS: 99212 ==